=== PATIENT | female | born 1945 | race Caucasian/White ===

== ENCOUNTER 2017-06-24 10:15 | Outpatient (RCR) | payer MEDICARE, OTHER, SELFPAY ==
--- NOTE | 2017-06-22 11:25 | PT.OTN ---
Current Diagnoses Pain in left shoulder (06/22/17) Impingement syndrome of left shoulder (06/22/17) Abnormal posture (06/22/17) Weakness (06/22/17) Transition note: On June 21, 2017 our therapy services consisting of Speech, Occupational, and Physical Therapy transitioned from the [employer] electronic documentation system to a new [employer] electronic documentation system.?? All documentation prior to June 21 can be found under [employer] saved data. From June 21 forward all medical record documentation will be in [employer] 6.1.
--- NOTE | 2017-06-22 17:01 | PT.OTN ---
Current Diagnoses Pain in left shoulder (06/22/17) Impingement syndrome of left shoulder (06/22/17) Abnormal posture (06/22/17) Weakness (06/22/17) Physical Therapy Treatment Note PT-OP-A Visit Information Start: 06/22/17 16:41 Freq: Status: Active Protocol: Activity Type Activity Date Activity User E-Sign Co-Sign Detail Recorded Client Recorded Date Recorded By Document 06/22/17 16:43 TMS [email or web address] 06/22/17 16:59 [facility] 06/22/17 16:43 Out-Patient Physical Therapy Visit Information [Visit Information] -Visit Type Treatment Note -Visit Start Time 11:00 -Visit Stop Time 11:45 -Total Visit Minutes 45 -Visit Number 6/10 -Number of LICENSED ARCHITECT Visits 4 PT-OP-C Subjective Start: 06/22/17 16:41 Freq: Status: Active Protocol: Activity Type Activity Date Activity User E-Sign Co-Sign Detail Recorded Client Recorded Date Recorded By Document 06/22/17 16:43 TMS [email or web address] 06/22/17 16:59 [facility] 06/22/17 16:43 OP-PT Subjective [Patient Comments] -Patient Comments Pt. states pain comes and goes, had increased pain last night. PT-OP-S Aquatic Treatment Start: 06/22/17 16:41 Freq: Status: Active Protocol: Activity Type Activity Date Activity User E-Sign Co-Sign Detail Recorded Client Recorded Date Recorded By Document 06/22/17 16:43 TMS [email or web address] 06/22/17 16:59 [facility] 06/22/17 16:43 Aquatics Treatment [Pool Entry/Exit] -Pool Entry/Exit Method Stairs -Assistance Independent [Water Walking] Sideways -Water Level Chest Level -Level of Assistance Independent -Comments With U.E. AB/AD Forwards -Water Level Chest Level -Level of Assistance Independent [Upper Extremity Exercises] 5 -Details Shoulder IR/ER to neutrel 4 -Details Shoulder flexion/ extension -Body Position Standing -Water Level Neck Level -Reps/Duration 10 -Comments Pushing down, floating up to surface 3 -Details Shloulder AB/AD -Body Position Standing -Water Level Neck Level -Reps/Duration 10 -Comments Pushing down, floating up to surface. 2 -Details Neck side bending -Body Position Standing -Water Level Neck Level 1 -Details Shoulder Rolls -Body Position Standing -Water Level Neck Level -Reps/Duration 10 [[place] Activities] -[place] Activities Bicycle -Equipment Belt -Duration 20 -Comments With gentle U.E . ROM [Manual Techniques] -Aquatic Massage Soft tissue massage of left shoulder and shoulder girdle , WATSU also PT-OP-T Assessment and Plan Start: 06/22/17 16:41 Freq: Status: Active Protocol: Activity Type Activity Date Activity User E-Sign Co-Sign Detail Recorded Client Recorded Date Recorded By Document 06/22/17 16:43 TMS [email or web address] 06/22/17 16:59 TMS 06/22/17 16:43 Physical Therapy Assessment [Assessment Summary] -Assessment Pt. is tolerating left shoulder ROM slightly better , seems less guarded with ROM and less grimacing. Complained of left knee pain as well. Physical Therapy Plan [Frequency and Duration] -Frequency of Treatment 2x/Week -Duration of Treatment 2 months from May 11, 2017 -Plan of Care Start Date 05/11/17 -Plan of Care End Date 07/10/17 [Next Visit Focus/Plan] -Next Visit Plan Continue to progress left shoulder ROM, strength.
--- NOTE | 2017-06-24 15:30 | PT.OTN ---
Current Diagnoses Pain in left shoulder (06/24/17) Impingement syndrome of left shoulder (06/24/17) Abnormal posture (06/24/17) Weakness (06/24/17) Physical Therapy Treatment Note PT-OP-A Visit Information Start: 06/22/17 16:41 Freq: Status: Active Protocol: Activity Type Activity Date Activity User E-Sign Co-Sign Detail Recorded Client Recorded Date Recorded By Document 06/24/17 15:03 [facility] [email or web address] 06/24/17 15:29 [facility] 06/24/17 15:03 Out-Patient Physical Therapy Visit Information [Visit Information] -Visit Type Treatment Note -Visit Start Time 10:15 -Visit Stop Time 11:00 -Total Visit Minutes 45 -Visit Number 08/30 -Number of GLOBAL MANAGER Visits 1 PT-OP-C Subjective Start: 06/22/17 16:41 Freq: Status: Active Protocol: Activity Type Activity Date Activity User E-Sign Co-Sign Detail Recorded Client Recorded Date Recorded By Document 06/24/17 15:03 [facility] [email or web address] 06/24/17 15:29 [facility] 06/24/17 15:03 OP-PT Subjective [Patient Comments] -Patient Comments Pt. states she has an appointment with [facility] clinic next week. State's she's hoping they can help her with her weight, states she doesn't follow a good diet, trying to increase activity. OP-PT Pain Assessment [Pain Assessment Grid] -Paper Pain Assessment Grid Completed No [Comments] -Pain Comments Pt. states her pain ranges from 0-8/10, depending on what she's doing. PT-OP-S Aquatic Treatment Start: 06/22/17 16:41 Freq: Status: Active Protocol: Activity Type Activity Date Activity User E-Sign Co-Sign Detail Recorded Client Recorded Date Recorded By Document 06/24/17 15:03 TMS [email or web address] 06/24/17 15:29 [facility] 06/24/17 15:03 Aquatics Treatment [Pool Entry/Exit] -Pool Entry/Exit Method Stairs [Water Walking] Sideways -Water Level Chest Level -Level of Assistance Independent -Comments With U.E. AB/AD Forwards -Water Level Chest Level -Level of Assistance Independent [Upper Extremity Exercises] 7 -Details Pendulums -Body Position Standing -Water Level Neck Level 6 -Details Elbow flexion/ extension -Body Position Standing -Water Level Neck Level -Reps/Duration 10 5 -Details Shoulder IR/ER to neutrel 4 -Details Shoulder flexion/ extension -Body Position Standing -Water Level Neck Level -Reps/Duration 10 -Comments Pushing down, floating up to surface 3 -Details Shloulder AB/AD -Body Position Standing -Water Level Neck Level -Reps/Duration 10 -Comments Pushing down, floating up to surface. 2 -Details Neck side bending -Body Position Standing -Water Level Neck Level 1 -Details Shoulder Rolls -Body Position Standing -Water Level Neck Level -Reps/Duration 10 [Hunter Activities] -Hunter Activities Bicycle -Equipment Belt -Duration 20 -Comments With gentle U.E . ROM PT-OP-T Assessment and Plan Start: 06/22/17 16:41 Freq: Status: Active Protocol: Activity Type Activity Date Activity User E-Sign Co-Sign Detail Recorded Client Recorded Date Recorded By Document 06/24/17 15:03 TMS [email or web address] 06/24/17 15:29 TMS 06/24/17 15:03 Physical Therapy Assessment [Progress Towards Goals] -Progress Towards Goals Slow Progress - Other -Progress Comments Pt. is tolerating increased left shoulder ROM with exercises Physical Therapy Plan [Frequency and Duration] -Frequency of Treatment 2x/Week -Duration of Treatment 2 months from May 11, 2017 -Plan of Care Start Date 05/11/17 -Plan of Care End Date 07/10/17 [Next Visit Focus/Plan] -Next Visit Plan Pt. doesn't have any further aquatic appointments scheduled, wants to continue as able. Pt. put on wait list for aquatic P.T ., isn't able to afford coming in by herself.
--- NOTE | 2017-07-19 10:20 | PT.OPDS ---
Current Diagnoses Pain in left shoulder (06/24/17) Impingement syndrome of left shoulder (06/24/17) Abnormal posture (06/24/17) Weakness (06/24/17) Provider Visit Care Team Role Provider Type Ivan Recinos MD Family Provider Physician Primary Care Provider Specialty: Internal Medicine Address: [address] [place] [address], [id number] Email: [email or web address] Danie Murray MD Attending Provider Physician Specialty: Orthopedic Surgery Address: [address] [place] [address], [id number] Email: [email or web address] Discharge Summary PT-OP-C Subjective Start: 06/22/17 16:41 Freq: Status: Active Protocol: Document 06/24/17 15:03 TMS (Rec: 06/24/17 15:29 TMS [email or web address]) OP-PT Subjective Patient Comments Patient Comments Pt. states she has an appointment with [facility] clinic next week. State's she's hoping they can help her with her weight, states she doesn't follow a good diet, trying to increase activity. OP-PT Pain Assessment Pain Assessment Grid Paper Pain Assessment Grid Completed No Comments Pain Comments Pt. states her pain ranges from 0-8/10, depending on what she's doing. PT-OP-T Assessment and Plan Start: 06/22/17 16:41 Freq: Status: Active Protocol: Document 07/14/17 10:14 [facility] (Rec: 07/19/17 10:19 [facility] [id number]) Physical Therapy Assessment Assessment Summary Assessment Spoke by phone with patient; she reports she has started at [facility] clinic per PT recommendation, has started losing weight and her shoulder is feeling better. Requests discharge from PT at this time . Physical Therapy Plan Discharge Physical Therapy Discharge Reasons Patient Request Discharge Comments As above patient reporting decreased pain, losing weight. Please Sign and Return: I have reviewed this Plan of Care and certify that the skilled therapy services above are required to meet the patient???s needs. Physician Signature Date Printed Name and Credentials Clinical Instructor Signature Printed Name and Credentials
== END 2017-07-22 09:42 ==
LOC: PHYS 10:15
PROVIDERS: Family Provider Internal Medicine; PCP Internal Medicine; Visit Provider Orthopaedic Surgery
DX: M75.42 Impingement syndrome of left shoulder (principal); M25.512 Pain in left shoulder; R53.1 Weakness; R29.3 Abnormal posture
CPT/HCPCS: 97113

== ENCOUNTER → 2017-07-28 11:07 | Outpatient (CLI) | payer MEDICARE, OTHER, SELFPAY ==
[2017-07-28 13:12] LABS: Hemoglobin A1C% w Est Avg Glu 6.4 % (4.0-6.0)
[2017-07-28 13:47] LABS: Cholesterol 202 mg/dL (140-199); HDL Cholesterol 35 mg/dL (40-60); Triglycerides 466 mg/dL (35-150)
== END ==
PROVIDERS: Family Provider Internal Medicine; PCP Internal Medicine; Visit Provider Student in an Organized Health Care Education/Training Program
DX: E11.9 Type 2 diabetes mellitus without complications (principal); Z79.4 Long term (current) use of insulin
CPT/HCPCS: 36415; 80061; 83036

== ENCOUNTER 2017-11-24 16:56 | Emergency (ER) | payer MEDICARE, OTHER, SELFPAY ==
[2017-11-24 17:02] VITALS: BP 150/73; PULSE 81; RESP 16; TEMP 36.9; O2SAT 97
--- NOTE | 2017-11-24 19:08 | ED_ITS ---
HPI - Extremity Injury (Upper) General Chief Complaint: Extremity Injury, Upper Stated Complaint: CUT LT MIDDLE FINGER Time Seen by Provider: 11/24/17 19:08 Source: patient Mode of arrival: ambulatory Limitations: no limitations History of Present Illness HPI narrative: 72-year-old female here for evaluation of a cut to her left middle finger. She states she was using his son machine and when the needle hit her finger she pulled away causing a cut. States that her last tetanus shot was 10-15 years ago. Stated that she came into the emergency department because it kept bleeding and would not stop. Related Data Home Medications Medication Instructions Recorded Confirmed MULTIVITAMIN (#HEXAVITAMIN) 1 cap PO Q DAY #0 04/06/11 11/01/17 magnesium 250 mg PO #0 02/21/16 11/01/17 cholecalciferol (vitamin D3) 5,000 u Q DAY #0 08/12/16 11/01/17 [Vitamin D3] cinnamon bark 500 mg capsule mg PO cap 11/01/17 11/01/17 loratadine 10 mg capsule 10 mg PO DAILY 11/01/17 11/01/17 omega-3 fatty acids 1,250 mg 1,250 mg PO DAILY 11/01/17 11/01/17 capsule potassium gluconate 595 mg (99 mg) 595 mg PO DAILY tab 11/01/17 11/01/17 tablet travoprost 0.004 % eye drops OPHTHALMIC (EYE) ml 11/01/17 11/01/17 niacin 1 tab PO DAILY 11/24/17 11/24/17 travoprost [Travatan Z] 1 drp OPHTHALMIC (EYE) BEDTIME 11/24/17 11/24/17 Previous Rx's Medication Instructions Recorded ASPIRIN (#ASPIRIN) 325 mg PO Q DAY #30 02/05/11 Support Stockings: Compression ea #2 03/19/16 Glucose: Test Strips str Q DAY #100 07/08/16 atorvastatin 40 mg PO HS #90 tab 02/22/17 amlodipine 10 mg PO QDAY #30 tab 08/10/17 furosemide 40 mg PO QAM #90 tab 08/19/17 meloxicam 15 mg PO QDAY #90 tab 08/19/17 metformin [Glucophage] 1,000 mg PO BIDCC #360 tab 08/19/17 gemfibrozil 600 mg PO BIDAC #60 tab 10/17/17 metoprolol tartrate [Lopressor] 50 mg PO BID #60 tab 10/17/17 omeprazole magnesium [Prilosec OTC] 20 mg PO Q DAY #30 tab 10/17/17 potassium chloride [Klor-Con M20] 20 meq PO AMCC #30 tab 10/17/17 losartan 50 mg PO BID #60 tab 11/03/17 Allergies Allergy/AdvReac Type Severity Reaction Status Date / Time lisinopril [LISINOPRIL] AdvReac Intermediate COUGH Verified 11/01/17 09:44 Review of Systems Musculoskeletal Denies myalgias and Denies arthralgias Integumentary/Breasts Comments: Cut to the left middle finger Neurologic Comments: No numbness or tingling left upper extremity Hematologic/Lymphatic Denies easy bleeding and Denies easy bruising [facility] Medical History Diabetes type 2, controlled (Chronic) Essential hypertension (Chronic 02/04/11) Morbid obesity (Chronic 02/04/11) Mixed hyperlipidemia (Chronic 02/04/11) Asthma (Chronic ~1958) Peripheral neuropathy (Chronic ~2015) Shoulder pain (Chronic ~2016) Foot pain (Chronic ~1999) Fibromyalgia (Chronic) Carpal tunnel syndrome (Chronic ~1997) Ankle pain (Chronic ~1953) Rosacea (Chronic ~1989) History of recurrent ear infection (Chronic ~1955) Hearing loss (Chronic ~1955) Cataracts, bilateral (Chronic ~1999) Obstructive sleep apnea syndrome (Chronic 02/04/11) Glaucoma (Chronic 02/04/11) Chicken pox (Resolved ~1953) Chlamydia (Resolved ~1976) Endometriosis (Resolved) Fibroids (Resolved) Measles (Resolved ~1953) Menstrual cycle disorder (Resolved ~1961) Rubella (Resolved ~1955) Type 2 diabetes mellitus without complication, with long-term current use of insulin (Resolved 01/10/17) Surgical History Anesthesia (Resolved) Surgical procedure planned (Resolved) History of tonsillectomy (~1952) Status post hysterectomy (~1986) Family History Brother Age: 58 Sleep apnea Child Age: 49 Osteopenia Grandmother Cancer Mother Hypertension Sister Age: 61 Sleep apnea Migraines Family/Other Diabetes mellitus Father No problems noted. Social History Smoking Status: Never smoker Exam Initial Vital Signs Initial Vital Signs: Vital Signs Temperature 98.5 F 11/24/17 17:02 Pulse Rate 81 11/24/17 17:02 Respiratory Rate 16 11/24/17 17:02 Blood Pressure 150/73 H 11/24/17 17:02 Pulse Oximetry 97 11/24/17 17:02 Const General: cooperative, healthy appearing, comfortable, well developed, well groomed and No acute distress Orientation: alert, awake and oriented x3 Cardio Pulses: radial pulses present on the left Skin Other: Patient with a 1/2 cm cut to the radial aspect of the left distal middle finger just lateral to the edge of the nail extending to the pad of the finger. No active bleeding. Neuro Other: Sensation intact to light touch left middle finger Extrem Other: Full range of motion of the left middle finger Procedures Laceration Repair Laceration 1: Site: hand Side (If applicable): left Size (cm): 0.5 Description: linear Depth: simple, single layer Pre-repair: irrigated extensively Skin layer closed with: other (Dermabond Steri-Strips) Course Orders Ordered: Discontinued Medications Diphtheria/Tetanus/Acell Pertussis (Adacel) 0.5 ml IM .ONCE ONE Stop: 11/24/17 19:09 Vital Signs - 8 hr 11/24/17 17:02 Temperature 98.5 F Pulse Rate 81 Respiratory Rate 16 Blood Pressure 150/73 H Pulse Oximetry 97 MDM - Extremity Injury (Upper) MDM Narrative Medical decision making narrative: Neurovascularly intact. Tetanus was updated. Wound closed with Dermabond and Steri-Strips. Patient tolerated procedure well. She was given care instructions. She was given return precautions. She expressed understanding and agreement with plan. Discharge Plan Departure Patient Disposition: Home Clinical Impression: Laceration of finger of left hand Instructions: How to Care for a Laceration After Repair Activity Restrictions/Additional Instructions: After 24 hr you can remove the bandage. You can wash your hands like normal. You can use soap and water like normal. Do not soak your hands and anything. The Steri-Strips and skin glue will come off on its own over the next week. Return to the emergency department for any new or worsening symptoms Prescriptions: No Action ASPIRIN (#ASPIRIN) 325 mg PO Q DAY Qty: 30 RF: 0 MULTIVITAMIN (#HEXAVITAMIN) 1 cap PO Q DAY Qty: 0 RF: 0 magnesium 200 MG tablet 250 mg PO Qty: 0 RF: 0 Support Stockings: Compression Qty: 2 RF: PRN Glucose: Test Strips Q DAY Qty: 100 RF: PRN cholecalciferol (vitamin D3) [Vitamin D3] 1,000 UNIT tablet 5,000 u Q DAY Qty: 0 RF: 0 atorvastatin 40 MG tablet 40 mg PO HS Qty: 90 RF: 3 amlodipine 10 mg tablet 10 mg PO QDAY Qty: 30 RF: 3 metformin [Glucophage] 500 mg tablet 1,000 mg PO BIDCC Qty: 360 RF: 0 furosemide 40 mg tablet 40 mg PO QAM Qty: 90 RF: 3 meloxicam 15 mg tablet 15 mg PO QDAY Qty: 90 RF: 2 gemfibrozil 600 mg tablet 600 mg PO BIDAC Qty: 60 RF: 1 metoprolol tartrate [Lopressor] 50 mg tablet 50 mg PO BID Qty: 60 RF: 1 potassium chloride [Klor-Con M20] 20 mEq tablet,ER particles/crystals 20 meq PO AMCC Qty: 30 RF: 1 omeprazole magnesium [Prilosec OTC] 20 mg tablet,delayed release (DR/EC) 20 mg PO Q DAY Qty: 30 RF: 1 losartan 50 mg tablet 50 mg PO BID Qty: 60 RF: 2 travoprost [Travatan Z] 0.004 % drops ophthalmic (eye) RF: 0 loratadine 10 mg capsule 10 mg PO DAILY RF: 0 cinnamon bark 500 mg capsule PO RF: 0 omega-3 fatty acids 1,250 mg capsule 1,250 mg PO DAILY RF: 0 potassium gluconate 595 mg (99 mg) tablet 595 mg PO DAILY RF: 0 niacin 500 mg tablet extended release 24 hr 1 tab PO DAILY RF: 0 travoprost [Travatan Z] 0.004 % drops 1 drp ophthalmic (eye) BEDTIME RF: 0
[2017-11-24] MEDS: TET,DIPH,PERTUSS(ACELL),VAC/PF 0.5 ML SYRINGE IM (19:25)
[2017-11-24 20:00] VITALS: BP 149/71; PULSE 80; RESP 18
== END 2017-11-24 20:00 | disposition home or self-care (01) ==
PROVIDERS: Emergency Provider Emergency Medicine; Family Provider Internal Medicine; PCP Internal Medicine
DX: S61.213A Laceration without foreign body of left middle finger without damage to nail, initial encounter (principal); W27.3XXA Contact with needle (sewing), initial encounter
CPT/HCPCS: 12001; 90471; 99283; 90715

== ENCOUNTER → 2017-12-16 16:12 | Outpatient (CLI) | payer MEDICARE, OTHER, SELFPAY ==
[2017-12-16 17:11] LABS: Hemoglobin A1C% w Est Avg Glu 6.4 % (4.0-6.0)
== END ==
PROVIDERS: Family Provider Internal Medicine; PCP Internal Medicine; Visit Provider Student in an Organized Health Care Education/Training Program
DX: E11.42 Type 2 diabetes mellitus with diabetic polyneuropathy (principal)
CPT/HCPCS: 36415; 83036

== ENCOUNTER 2018-03-15 10:15 | Outpatient (RCR) | payer MEDICARE, OTHER, SELFPAY ==
--- NOTE | 2017-09-08 10:30 | PT.OIE ---
Current Diagnoses Type 2 diabetes mellitus without complications (09/08/17) Morbid (severe) obesity due to excess calories (09/08/17) Patellofemoral disorders, left knee (09/08/17) Pain in left shoulder (09/08/17) Stiffness of left shoulder, not elsewhere classified (09/08/17) Muscle weakness (generalized) (09/08/17) Body mass index (BMI) 50-59.9 , adult (09/08/17) Past Medical History (Last Updated 07/21/17 @ 09:38 by Cristel Johnson) Type 2 diabetes mellitus without complication, with long-term current use of insulin (Chronic 01/10/17) Essential hypertension (Chronic 02/04/11) Mixed hyperlipidemia (Chronic 02/04/11) Obstructive sleep apnea syndrome (Chronic 02/04/11) Morbid obesity (Chronic 02/04/11) Glaucoma (Chronic 02/04/11) Ankle pain (Chronic ~1953) Asthma (Chronic ~1958) Carpal tunnel syndrome (Chronic ~1997) Cataracts, bilateral (Chronic ~1999) Chlamydia (Chronic ~1976) Diabetes mellitus (Chronic) Endometriosis (Chronic) Fibroids (Chronic) Fibromyalgia (Chronic) Foot pain (Chronic ~1999) Glaucoma (Chronic ~2002) Hearing loss (Chronic ~1955) History of recurrent ear infection (Chronic ~1955) Hyperlipidemia (Chronic) Hypertension (Chronic) Menstrual cycle disorder (Chronic ~1961) Osteoarthritis (Chronic) Peripheral neuropathy (Chronic ~2015) Rosacea (Chronic ~1989) Shoulder pain (Chronic ~2016) Sleep apnea (Chronic) Chicken pox (Resolved ~1953) Measles (Resolved ~1953) Rubella (Resolved ~1955) Past Surgical History (Last Updated 07/21/17 @ 09:46 by Cristel oJhnson) Anesthesia (Resolved) Surgical procedure planned (Resolved) History of tonsillectomy (~1952) Status post hysterectomy (~1986) Provider Visit Care Team Role Provider Type Ivan Recinos MD Family Provider Physician Primary Care Provider Specialty: Internal Medicine Address: [address] [place] [address], [phone] Email: [email or web address] NATALIO Herndon Attending Provider Advanced Plate Roller Specialty: Medical Address: [address] [place] [address], [facility] Email: Physical Therapy Initial Evaluation PT-OP-A Visit Information Start: 09/08/17 10:49 Freq: Status: Active Protocol: Document 09/08/17 10:30 [facility] (Rec: 09/08/17 11:04 [facility] [email or web address]) Out-Patient Physical Therapy Visit Information Visit Information Visit Type Initial Evaluation Visit Note 12 visits total before KX Visit Start Time 09:45 Visit Stop Time 10:35 Total Visit Minutes 50 Visit Number 1 Number of SENIOR CONSTRUCTION PROJECT MANAGER Visits 0 Evaluation Information Evaluation Date 09/08/17 PT-OP-B Current Condition Start: 09/08/17 10:49 Freq: Status: Active Protocol: Document 09/08/17 10:30 [facility] (Rec: 09/08/17 11:04 [facility] [email or web address]) Current Condition History of Current Condition Onset Date years ago Current Complaints L shoulder and impaired ability to walk History of Current Condition Pt is a 71 y/o female presenting to physical therapy with a c/o L shoulder pain, as well as bilateral knee pain and swelling L>R limiting her ability to ambulate long distances. Pt notes that she had PT prior for L shoulder with some results, but now is painful when doing her exercises. She sleeps in a upright chair with an ice pack on the L shoulder due to having pain lying down in bed, normally sleeping 2-3 hrs a night. Pt notes that this sleeping position increases her LE swelling. She does not wear compression stockings because they are expensive and Medicare does not cover them. She is waiting on new orthotics to get new shoes. She has to support her L arm most of the time due to pain is she lets it hang. She had an injection in the shoulder which worked for 4 days, and effects wore off before she even had PT last time around. Pt takes Tylenol for pain, and ice helps sometimes. She reports that her orthopedic surgeon suggested that she not do surgery on her shoulder at this point. Pt is undergoing obesity counseling, and is referred for mobility and physical activity with a goal of weight loss, as well as chronic knee and L shoulder pain. Prior Treatments and Tests MRI L shoulder 04/21/2017: Moderate AC joint degeneration , no nearby rotator cuff tears . Irregular globular signal within the superior labrum suggests superior labral tear (SLAP type I or II pathology). No para labral cyst formation . Treatment Goals Patient/Caregiver Goals 1: decrease shoulder pain, 2: increase knee and LE strength to tolerate walking. Prior Functional Status Baseline Function- ADL's Modified Independent Baseline Function- Mobility Modified Independent Baseline Function- Gait community ambulation without device. Current Functional Impairments (Reported) Functional Limitations- ADL's modified indep. Functional Limitations- Mobility/Gait Indep community gait 2 days per week, with increased pain and fatigue. PT-OP-C Subjective Start: 09/08/17 10:49 Freq: Status: Active Protocol: Document 09/08/17 10:30 [facility] (Rec: 09/08/17 11:04 [facility] [email or web address]) OP-PT Subjective Patient Comments Patient Comments Pt notes that her exercises are hurting (shoulder exercises from previous PT training). Admits she does her exercises infrequently. Patient Reported Progress Worse OP-PT Pain Assessment Location Left Lateral Shoulder Pain Location Details lateral and anterior Intensity 9 Scale Used Numeric (1 - 10) Description Aching Sharp Frequency Frequent PT-OP-F Manual Assessment Start: 09/08/17 10:49 Freq: Status: Active Protocol: Document 09/08/17 10:30 [facility] (Rec: 09/08/17 13:39 [facility] [email or web address]) Manual Assessments Soft Tissue Assessment Soft Tissue Mobility Assessment TTP: L subacromial bursa, anterior and medial deltoids, biceps long head, infra and supraspinatus. PT-OP-G Mobility & Gait Start: 09/08/17 10:49 Freq: Status: Active Protocol: Document 09/08/17 10:30 [facility] (Rec: 09/08/17 13:39 [facility] [email or web address]) OP Gait Assessment Comments Gait Comments Mildly antalgic, increased lateral sway, decreased step length on the L. PT-OP-H Neuro Start: 09/08/17 10:49 Freq: Status: Active Protocol: Document 09/08/17 10:30 [facility] (Rec: 09/08/17 13:39 [facility] [email or web address]) Sensation Evaluation Comments Summary Comments Impaired sensation B toes, intact plantar and dorsal surface of feet. Deep Tendon Reflex & Clonus Assessment Deep Tendon Reflex Bilateral Achilles Deep Tendon Reflex 1+ Diminished Bilateral Patellar Deep Tendon Reflex 1+ Diminished Ankle Clonus Bilateral Clonus Assessment Absent PT-OP-K Range of Motion Start: 09/08/17 10:49 Freq: Status: Active Protocol: Document 09/08/17 10:30 [facility] (Rec: 09/08/17 13:42 [facility] [email or web address]) Shoulder Goniometric Range of Motion Shoulder Measured in Degrees Right Active Testing Position Sitting Flexion 150 Abduction 155 External Rotation at 90 degrees 75 Abduction Internal Rotation 80 Left Active Testing Position Sitting Flexion 145 Abduction 105 External Rotation at 90 degrees 45 Abduction Internal Rotation 75 Knee Goniometric Range of Motion Knee Measured in Degrees Right Flexion Active (degrees) 125 Hyper-Extension Active 2 Left Patient Position Supine Flexion Active (degrees) 115 Extension Active (degrees) 5 Extension Passive (degrees) 0 Knee ROM Limitations Comments L knee lacking 5 degrees of extension with AROM. PT-OP-L Special Tests Start: 09/08/17 10:49 Freq: Status: Active Protocol: Document 09/08/17 10:30 [facility] (Rec: 09/08/17 14:52 [facility] [email or web address]) Special Tests Cervical Spine Special Tests Spurling's Test Test Results Negative Shoulder Special Tests Lift-Off Rotator Cuff Test Results negative B Empty Can Test Results positive L, negative R AC Joint Compression Test Results positive L, negative R Anderson Cole Impingement Test Results positive L, negative R Load and Shift Test Results negative B Speed's Biceps Test Results negative B Apprehension Test Test Results negative B Knee Special Tests Eccentric step down test Test Results positive for pain on the L Comments 6 step Varus- 25 Degrees Test Results negative B Varus- 0 Degrees Test Results negative B Valgus- 25 Degrees Test Results negative B Valgus- 0 Degrees Test Results negative B PT-OP-M Strength Start: 09/08/17 10:49 Freq: Status: Active Protocol: Document 09/08/17 10:30 [facility] (Rec: 09/08/17 14:52 [facility] [email or web address]) Shoulder Strength Shoulder Manual Muscle Testing Right Flexion 4+ Good+ Abduction (C5) 5 Normal External Rotation 5 Normal Internal Rotation 5 Normal Left Flexion 4 Good Abduction (C5) 4- Good- External Rotation 4+ Good+ Internal Rotation 5 Normal Elbow/Forearm Strength Elbow and Forearm Manual Muscle Testing Right Flexion (C6) 4+ Good+ Extension (C7) 4+ Good+ Left Flexion (C6) 4- Good- Extension (C7) 4 Good PT-OP-Q Treatments Start: 09/08/17 10:49 Freq: Status: Active Protocol: Document 09/08/17 10:30 RCC (Rec: 09/08/17 14:52 [facility] [email or web address]) Therapeutic Exercises Standing Exercises 3 Standing Exercise Name scapular retraction Side bilateral Reps/Minutes 1x10 Comments tactile cuing 2 Standing Exercise Name shoulder abduction Side left Resistance L1 Reps/Minutes 1x18 Comments 0-45 deg. 1 Standing Exercise Name shoulder ER Side left Resistance L1 Reps/Minutes 1x10 PT-OP-R Modalities Start: 09/08/17 10:49 Freq: Status: Active Protocol: Document 09/08/17 10:30 [facility] (Rec: 09/08/17 14:53 [facility] [email or web address]) Hot Pack/Cold Pack Treatment Cold Pack Location lumbar and L shoulder Patient Position Sitting Treatment Duration (minutes) 10 Patient Tolerance Good PT-OP-T Assessment and Plan Start: 09/08/17 10:49 Freq: Status: Active Protocol: Document 09/08/17 10:30 [facility] (Rec: 09/08/17 14:52 [facility] [email or web address]) Physical Therapy Assessment Rehab Potential Rehabilitation Potential Good Evaluation Complexity Number of Personal Factors/Comorbidities 3 or More Number of Body Systems Impaired 4 or More Clinical Presentation at Evaluation Evolving Impairments Impairments Activity Tolerance Functional Activities Gait Pain ROM Soft Tissue Mobility Strength Goals Five Impairment LE strength Long-Term Goal (LTG) knee flexion and extension, hip flexion, ER and IR to 4+/5 or greater prior to d/c. Four Impairment UE weakness Long-Term Goal (LTG) Shoulder flexion, elbow flexion and extension at least 4+/5, and shoulder abduction, ER, IR 5/5 with manual muscle testing. LTG Duration 12 weeks Three Impairment Impaired gait tolerance Short Term Goal (STG) Pt will be compliant with a walking program 3 days per week for 20 mins. Emergency Response Officer Goal (LTG) Pt will be compliant with a walking program, 5 days per week for 30 mins. LTG Duration 12 weeks Two Impairment L shoulder ROM Emergency Response Officer Goal (LTG) L shoulder flexion and abduction to 150 deg, ER to 70 deg. prior to d/c for functional reaching overhead. LTG Duration 12 weeks One Impairment L shoulder pain 9/10 Short Term Goal (STG) 6/10 or less rated L shoulder pain STG Duration 6 weeks Emergency Response Officer Goal (LTG) 4/10 or less rated L shoulder pain LTG Duration 12 weeks Assessment Summary Assessment Pt presents with multiple areas of complaints with pain, most concerning to her at the L shoulder and L knee. Pt's L shoulder appears to demonstrates signs of muscle/ tendon strain and impingement, along with MRI findings of AC joint degeneration. Pt's L knee appears to have poor patellofemoral tracking, and decreased quadriceps strength likely causing increased pain with descending steps. Pt would greatly benefit from physical therapy to improve strength in the upper and lower extremities, increase L shoulder ROM, decrease pain, and get established with a home walking program to assist with cardiovascular health. Pt would also benefit from participating in out aquatic physical therapy program to decrease stress on weight- bearing joints, and improve exercise tolerance and strength. Physical Therapy Plan Frequency and Duration Frequency of Treatment 2x/Week Duration of Treatment 12 weeks Plan of Care Start Date 09/08/17 Plan of Care End Date 12/01/17 Therapeutic Interventions Therapeutic Interventions Aquatic Therapy Gait Training Home Exercise Program Joint Mobilizations Manual Therapy Neuromuscular Re-education Patient/Caregiver Education Self-Care/Home Management Soft Tissue Mobilization Taping Therapeutic Activities Therapeutic Exercises Modalities Cold Pack/Ice Massage Electric Stimulation Hot Packs Ultrasound Next Visit Focus/Plan Next Note Type Treatment Note Next Visit Plan Shuttle leg press- 50-62 lbs bilateral, 25-37 lbs unilateral; resisted scapular retraction; T-bar ROM/conor's .
--- NOTE | 2017-09-08 10:30 | PT.OPPOC ---
Current Diagnoses Type 2 diabetes mellitus without complications (09/08/17) Morbid (severe) obesity due to excess calories (09/08/17) Patellofemoral disorders, left knee (09/08/17) Pain in left shoulder (09/08/17) Stiffness of left shoulder, not elsewhere classified (09/08/17) Muscle weakness (generalized) (09/08/17) Body mass index (BMI) 50-59.9 , adult (09/08/17) Provider Visit Care Team Role Provider Type Ivan Recinos MD Family Provider Physician Primary Care Provider Specialty: Internal Medicine Address: [address] [place] [address], [id number] Email: [email or web address] NATALIO Herndon Attending Provider Advanced Print Production Coordinator Specialty: Medical Address: [address] [place] [address], [facility] Email: Plan Of Care PT-OP-T Assessment and Plan Start: 09/08/17 10:49 Freq: Status: Active Protocol: Document 09/08/17 10:30 RCC (Rec: 09/08/17 14:52 RCC [email or web address]) Physical Therapy Assessment Rehab Potential Rehabilitation Potential Good Evaluation Complexity Number of Personal Factors/Comorbidities 3 or More Number of Body Systems Impaired 4 or More Clinical Presentation at Evaluation Evolving Impairments Impairments Activity Tolerance Functional Activities Gait Pain ROM Soft Tissue Mobility Strength Goals Five Impairment LE strength Sales Representative Graphic Art Goal (LTG) knee flexion and extension, hip flexion, ER and IR to 4+/5 or greater prior to d/c. Four Impairment UE weakness Sales Representative Graphic Art Goal (LTG) Shoulder flexion, elbow flexion and extension at least 4+/5, and shoulder abduction, ER, IR 5/5 with manual muscle testing. LTG Duration 12 weeks Three Impairment Impaired gait tolerance Short Term Goal (STG) Pt will be compliant with a walking program 3 days per week for 20 mins. Sales Representative Graphic Art Goal (LTG) Pt will be compliant with a walking program, 5 days per week for 30 mins. LTG Duration 12 weeks Two Impairment L shoulder ROM Sales Representative Graphic Art Goal (LTG) L shoulder flexion and abduction to 150 deg, ER to 70 deg. prior to d/c for functional reaching overhead. LTG Duration 12 weeks One Impairment L shoulder pain 9/10 Short Term Goal (STG) 6/10 or less rated L shoulder pain STG Duration 6 weeks Sales Representative Graphic Art Goal (LTG) 4/10 or less rated L shoulder pain LTG Duration 12 weeks Assessment Summary Assessment Pt presents with multiple areas of complaints with pain, most concerning to her at the L shoulder and L knee. Pt's L shoulder appears to demonstrates signs of muscle/ tendon strain and impingement, along with MRI findings of AC joint degeneration. Pt's L knee appears to have poor patellofemoral tracking, and decreased quadriceps strength likely causing increased pain with descending steps. Pt would greatly benefit from physical therapy to improve strength in the upper and lower extremities, increase L shoulder ROM, decrease pain, and get established with a home walking program to assist with cardiovascular health. Pt would also benefit from participating in out aquatic physical therapy program to decrease stress on weight- bearing joints, and improve exercise tolerance and strength. Physical Therapy Plan Frequency and Duration Frequency of Treatment 2x/Week Duration of Treatment 12 weeks Plan of Care Start Date 09/08/17 Plan of Care End Date 12/01/17 Therapeutic Interventions Therapeutic Interventions Aquatic Therapy Gait Training Home Exercise Program Joint Mobilizations Manual Therapy Neuromuscular Re-education Patient/Caregiver Education Self-Care/Home Management Soft Tissue Mobilization Taping Therapeutic Activities Therapeutic Exercises Modalities Cold Pack/Ice Massage Electric Stimulation Hot Packs Ultrasound Next Visit Focus/Plan Next Note Type Treatment Note Next Visit Plan Shuttle leg press- 50-62 lbs bilateral, 25-37 lbs unilateral; resisted scapular retraction; T-bar ROM/conor's . Plan of Care Dates Plan of Care Start Date 09/08/17 Plan of Care End Date 12/01/17 Please Sign and Return: I have reviewed this Plan of Care and certify that the skilled therapy services above are required to meet the patient?s needs. Physician Signature Date Printed Name and Credentials Clinical Instructor Signature Printed Name and Credentials
--- NOTE | 2017-09-13 15:19 | PT.OTN ---
Current Diagnoses Type 2 diabetes mellitus without complications (09/13/17) Morbid (severe) obesity due to excess calories (09/13/17) Body mass index (BMI) 50-59.9 , adult (09/13/17) Physical Therapy Treatment Note PT-OP-A Visit Information Start: 09/08/17 10:49 Freq: Status: Active Protocol: Document 09/13/17 08:59 LRN (Rec: 09/13/17 09:46 LRN [id number]) Out-Patient Physical Therapy Visit Information Visit Information Visit Type Initial Evaluation Visit Note 11 visits total before KX Visit Start Time 09:00 Visit Stop Time 09:50 Total Visit Minutes 50 Visit Number 2 Number of CERTIFIED HEALTH EDUCATION SPECIALIST Visits 0 Evaluation Information Evaluation Date 09/08/17 PT-OP-B Current Condition Start: 09/08/17 10:49 Freq: Status: Active Protocol: Document 09/08/17 10:30 RCC (Rec: 09/08/17 11:04 RCC [email or web address]) Current Condition History of Current Condition Onset Date years ago Current Complaints L shoulder and impaired ability to walk History of Current Condition Pt is a 71 y/o female presenting to physical therapy with a c/o L shoulder pain, as well as bilateral knee pain and swelling L>R limiting her ability to ambulate long distances. Pt notes that she had PT prior for L shoulder with some results, but now is painful when doing her exercises. She sleeps in a upright chair with an ice pack on the L shoulder due to having pain lying down in bed, normally sleeping 2-3 hrs a night. Pt notes that this sleeping position increases her LE swelling. She does not wear compression stockings because they are expensive and Medicare does not cover them. She is waiting on new orthotics to get new shoes. She has to support her L arm most of the time due to pain is she lets it hang. She had an injection in the shoulder which worked for 4 days, and effects wore off before she even had PT last time around. Pt takes Tylenol for pain, and ice helps sometimes. She reports that her orthopedic surgeon suggested that she not do surgery on her shoulder at this point. Pt is undergoing obesity counseling, and is referred for mobility and physical activity with a goal of weight loss, as well as chronic knee and L shoulder pain. Prior Treatments and Tests MRI L shoulder 04/21/2017: Moderate AC joint degeneration , no nearby rotator cuff tears . Irregular globular signal within the superior labrum suggests superior labral tear (SLAP type I or II pathology). No para labral cyst formation . Treatment Goals Patient/Caregiver Goals 1: decrease shoulder pain, 2: increase knee and LE strength to tolerate walking. Prior Functional Status Baseline Function- ADL's Modified Independent Baseline Function- Mobility Modified Independent Baseline Function- Gait community ambulation without device. Current Functional Impairments (Reported) Functional Limitations- ADL's modified indep. Functional Limitations- Mobility/Gait Indep community gait 2 days per week, with increased pain and fatigue. PT-OP-C Subjective Start: 09/08/17 10:49 Freq: Status: Active Protocol: Document 09/13/17 08:59 LRN (Rec: 09/13/17 09:46 LRN [id number]) OP-PT Subjective Patient Comments Patient Comments No change. Sometimes the shoulder feels better, other times not. PT-OP-F Manual Assessment Start: 09/08/17 10:49 Freq: Status: Active Protocol: Document 09/08/17 10:30 RCC (Rec: 09/08/17 13:39 RCC [email or web address]) Manual Assessments Soft Tissue Assessment Soft Tissue Mobility Assessment TTP: L subacromial bursa, anterior and medial deltoids, biceps long head, infra and supraspinatus. PT-OP-G Mobility & Gait Start: 09/08/17 10:49 Freq: Status: Active Protocol: Document 09/08/17 10:30 RCC (Rec: 09/08/17 13:39 RCC [email or web address]) OP Gait Assessment Comments Gait Comments Mildly antalgic, increased lateral sway, decreased step length on the L. PT-OP-H Neuro Start: 09/08/17 10:49 Freq: Status: Active Protocol: Document 09/08/17 10:30 RCC (Rec: 09/08/17 13:39 RCC [email or web address]) Sensation Evaluation Comments Summary Comments Impaired sensation B toes, intact plantar and dorsal surface of feet. Deep Tendon Reflex & Clonus Assessment Deep Tendon Reflex Bilateral Achilles Deep Tendon Reflex 1+ Diminished Bilateral Patellar Deep Tendon Reflex 1+ Diminished Ankle Clonus Bilateral Clonus Assessment Absent PT-OP-K Range of Motion Start: 09/08/17 10:49 Freq: Status: Active Protocol: Document 09/08/17 10:30 RCC (Rec: 09/08/17 13:42 RCC [email or web address]) Shoulder Goniometric Range of Motion Shoulder Measured in Degrees Right Active Testing Position Sitting Flexion 150 Abduction 155 External Rotation at 90 degrees 75 Abduction Internal Rotation 80 Left Active Testing Position Sitting Flexion 145 Abduction 105 External Rotation at 90 degrees 45 Abduction Internal Rotation 75 Knee Goniometric Range of Motion Knee Measured in Degrees Right Flexion Active (degrees) 125 Hyper-Extension Active 2 Left Patient Position Supine Flexion Active (degrees) 115 Extension Active (degrees) 5 Extension Passive (degrees) 0 Knee ROM Limitations Comments L knee lacking 5 degrees of extension with AROM. PT-OP-L Special Tests Start: 09/08/17 10:49 Freq: Status: Active Protocol: Document 09/08/17 10:30 RCC (Rec: 09/08/17 14:52 RCC [email or web address]) Special Tests Cervical Spine Special Tests Spurling's Test Test Results Negative Shoulder Special Tests Lift-Off Rotator Cuff Test Results negative B Empty Can Test Results positive L, negative R AC Joint Compression Test Results positive L, negative R Anderson Cole Impingement Test Results positive L, negative R Load and Shift Test Results negative B Speed's Biceps Test Results negative B Apprehension Test Test Results negative B Knee Special Tests Eccentric step down test Test Results positive for pain on the L Comments 6 step Varus- 25 Degrees Test Results negative B Varus- 0 Degrees Test Results negative B Valgus- 25 Degrees Test Results negative B Valgus- 0 Degrees Test Results negative B PT-OP-M Strength Start: 09/08/17 10:49 Freq: Status: Active Protocol: Document 09/08/17 10:30 RCC (Rec: 09/08/17 14:52 RCC [email or web address]) Shoulder Strength Shoulder Manual Muscle Testing Right Flexion 4+ Good+ Abduction (C5) 5 Normal External Rotation 5 Normal Internal Rotation 5 Normal Left Flexion 4 Good Abduction (C5) 4- Good- External Rotation 4+ Good+ Internal Rotation 5 Normal Elbow/Forearm Strength Elbow and Forearm Manual Muscle Testing Right Flexion (C6) 4+ Good+ Extension (C7) 4+ Good+ Left Flexion (C6) 4- Good- Extension (C7) 4 Good PT-OP-Q Treatments Start: 09/08/17 10:49 Freq: Status: Active Protocol: Document 09/13/17 08:59 LRN (Rec: 09/13/17 09:46 LRN [id number]) Cardio Equipment Recumbent Elliptical (Biodex) Duration (Minutes) 6 Resistance Lev 1 Seat Position 7 Gym Equipment Shuttle Recovery Bilateral Squats Resistance 50# Shuttle Recovery Platform Stable Reps/Time 10x3 Unilateral Squats Details 50#L, Resistance 50 Shuttle Recovery Platform Stable Reps/Time 10x3 Therapeutic Exercises Supine Exercises 2 Supine Exercise Name T-Bar Lat Pull Down Side bilateral Resistance Lev 1 Equipment Used T-Band Comments 15x1 1 Supine Exercise Name T-Bar Flex focus on Left shoulder Side bilateral Equipment Used 3' Comments Worked up to 90-150 deg's Sitting Exercises 1 Sitting Exercise Name Steven: L shoulder flex Side left Reps/Minutes 5' Comments MWM for scapula x 2' Standing Exercises 3 Standing Exercise Name scapular retraction Side bilateral Reps/Minutes 1x10 Comments tactile cuing 1 Standing Exercise Name shoulder ER Side left Resistance L1 Reps/Minutes 2x5 PT-OP-R Modalities Start: 09/08/17 10:49 Freq: Status: Active Protocol: Document 09/13/17 08:59 LRN (Rec: 09/13/17 09:46 LRN [id number]) Hot Pack/Cold Pack Treatment Cold Pack Location L knee and L shoulder strapped in Patient Position Supine Treatment Duration (minutes) 10 Patient Tolerance Good Comments Bolster under knees PT-OP-T Assessment and Plan Start: 09/08/17 10:49 Freq: Status: Active Protocol: Document 09/13/17 08:59 LRN (Rec: 09/13/17 09:46 LRN [id number]) Physical Therapy Assessment Goals Five Impairment LE strength Hydrogeology Professor Goal (LTG) knee flexion and extension, hip flexion, ER and IR to 4+/5 or greater prior to d/c. Four Impairment UE weakness Senior Living Goal (LTG) Shoulder flexion, elbow flexion and extension at least 4+/5, and shoulder abduction, ER, IR 5/5 with manual muscle testing. LTG Duration 12 weeks Three Impairment Impaired gait tolerance Short Term Goal (STG) Pt will be compliant with a walking program 3 days per week for 20 mins. Senior Living Goal (LTG) Pt will be compliant with a walking program, 5 days per week for 30 mins. LTG Duration 12 weeks Two Impairment L shoulder ROM Senior Living Goal (LTG) L shoulder flexion and abduction to 150 deg, ER to 70 deg. prior to d/c for functional reaching overhead. LTG Duration 12 weeks One Impairment L shoulder pain 9/10 Short Term Goal (STG) 6/10 or less rated L shoulder pain STG Duration 6 weeks Senior Living Goal (LTG) o4/10 or less rated L shoulder pain LTG Duration 12 weeks Assessment Summary Assessment Poor tolerance to T-Bar supine L shoulder AAROM. Good tolerance to steven ROM with scapular assist. Good tolerance to LE strengthening. Endurance is limited. Physical Therapy Plan Frequency and Duration Frequency of Treatment 2x/Week Duration of Treatment 12 weeks Plan of Care Start Date 09/08/17 Plan of Care End Date 12/01/17 Next Visit Focus/Plan Next Note Type Treatment Note Next Visit Plan Progress Shuttle 62# bilateral , and lat pull down ex. Might try US to L infraspinatus to decrease pain.
--- NOTE | 2017-09-15 13:19 | PT.OTN ---
Current Diagnoses Type 2 diabetes mellitus without complications (09/15/17) Morbid (severe) obesity due to excess calories (09/15/17) Body mass index (BMI) 50-59.9 , adult (09/15/17) Physical Therapy Treatment Note PT-OP-A Visit Information Start: 09/08/17 10:49 Freq: Status: Active Protocol: Document 09/15/17 09:44 LRN (Rec: 09/15/17 11:05 LRN [id number]) Out-Patient Physical Therapy Visit Information Visit Information Visit Type Treatment Note Visit Note 10 visits total before KX Visit Start Time 09:44 Visit Stop Time 10:44 Total Visit Minutes 60 Visit Number 3 Number of COUNTER TENDER Visits 0 Evaluation Information Evaluation Date 09/08/17 PT-OP-B Current Condition Start: 09/08/17 10:49 Freq: Status: Active Protocol: Document 09/08/17 10:30 RCC (Rec: 09/08/17 11:04 RCC [email or web address]) Current Condition History of Current Condition Onset Date years ago Current Complaints L shoulder and impaired ability to walk History of Current Condition Pt is a 71 y/o female presenting to physical therapy with a c/o L shoulder pain, as well as bilateral knee pain and swelling L>R limiting her ability to ambulate long distances. Pt notes that she had PT prior for L shoulder with some results, but now is painful when doing her exercises. She sleeps in a upright chair with an ice pack on the L shoulder due to having pain lying down in bed, normally sleeping 2-3 hrs a night. Pt notes that this sleeping position increases her LE swelling. She does not wear compression stockings because they are expensive and Medicare does not cover them. She is waiting on new orthotics to get new shoes. She has to support her L arm most of the time due to pain is she lets it hang. She had an injection in the shoulder which worked for 4 days, and effects wore off before she even had PT last time around. Pt takes Tylenol for pain, and ice helps sometimes. She reports that her orthopedic surgeon suggested that she not do surgery on her shoulder at this point. Pt is undergoing obesity counseling, and is referred for mobility and physical activity with a goal of weight loss, as well as chronic knee and L shoulder pain. Prior Treatments and Tests MRI L shoulder 04/21/2017: Moderate AC joint degeneration , no nearby rotator cuff tears . Irregular globular signal within the superior labrum suggests superior labral tear (SLAP type I or II pathology). No para labral cyst formation . Treatment Goals Patient/Caregiver Goals 1: decrease shoulder pain, 2: increase knee and LE strength to tolerate walking. Prior Functional Status Baseline Function- ADL's Modified Independent Baseline Function- Mobility Modified Independent Baseline Function- Gait community ambulation without device. Current Functional Impairments (Reported) Functional Limitations- ADL's modified indep. Functional Limitations- Mobility/Gait Indep community gait 2 days per week, with increased pain and fatigue. PT-OP-C Subjective Start: 09/08/17 10:49 Freq: Status: Active Protocol: Document 09/15/17 09:44 LRN (Rec: 09/15/17 11:05 LRN [id number]) OP-PT Subjective Patient Comments Patient Comments States the L shoulder was really sore the day after the last treatment. Used ice and arthritic pain meds for the pain. Pain was and is still 7 -8/10. Patient Reported Progress Worse OP-PT Pain Assessment Pain Assessment Grid Paper Pain Assessment Grid Completed No Location Left Lateral Shoulder Pain Location Details lateral and anterior Intensity 8 Scale Used Numeric (1 - 10) Description Aching Sharp Frequency Frequent PT-OP-F Manual Assessment Start: 09/08/17 10:49 Freq: Status: Active Protocol: Document 09/08/17 10:30 RCC (Rec: 09/08/17 13:39 RCC [email or web address]) Manual Assessments Soft Tissue Assessment Soft Tissue Mobility Assessment TTP: L subacromial bursa, anterior and medial deltoids, biceps long head, infra and supraspinatus. PT-OP-G Mobility & Gait Start: 09/08/17 10:49 Freq: Status: Active Protocol: Document 09/08/17 10:30 RCC (Rec: 09/08/17 13:39 RCC [email or web address]) OP Gait Assessment Comments Gait Comments Mildly antalgic, increased lateral sway, decreased step length on the L. PT-OP-H Neuro Start: 09/08/17 10:49 Freq: Status: Active Protocol: Document 09/08/17 10:30 RCC (Rec: 09/08/17 13:39 RCC [email or web address]) Sensation Evaluation Comments Summary Comments Impaired sensation B toes, intact plantar and dorsal surface of feet. Deep Tendon Reflex & Clonus Assessment Deep Tendon Reflex Bilateral Achilles Deep Tendon Reflex 1+ Diminished Bilateral Patellar Deep Tendon Reflex 1+ Diminished Ankle Clonus Bilateral Clonus Assessment Absent PT-OP-K Range of Motion Start: 09/08/17 10:49 Freq: Status: Active Protocol: Document 09/08/17 10:30 RCC (Rec: 09/08/17 13:42 RCC [email or web address]) Shoulder Goniometric Range of Motion Shoulder Measured in Degrees Right Active Testing Position Sitting Flexion 150 Abduction 155 External Rotation at 90 degrees 75 Abduction Internal Rotation 80 Left Active Testing Position Sitting Flexion 145 Abduction 105 External Rotation at 90 degrees 45 Abduction Internal Rotation 75 Knee Goniometric Range of Motion Knee Measured in Degrees Right Flexion Active (degrees) 125 Hyper-Extension Active 2 Left Patient Position Supine Flexion Active (degrees) 115 Extension Active (degrees) 5 Extension Passive (degrees) 0 Knee ROM Limitations Comments L knee lacking 5 degrees of extension with AROM. PT-OP-L Special Tests Start: 09/08/17 10:49 Freq: Status: Active Protocol: Document 09/08/17 10:30 RCC (Rec: 09/08/17 14:52 RCC [email or web address]) Special Tests Cervical Spine Special Tests Spurling's Test Test Results Negative Shoulder Special Tests Lift-Off Rotator Cuff Test Results negative B Empty Can Test Results positive L, negative R AC Joint Compression Test Results positive L, negative R Anderson Cole Impingement Test Results positive L, negative R Load and Shift Test Results negative B Speed's Biceps Test Results negative B Apprehension Test Test Results negative B Knee Special Tests Eccentric step down test Test Results positive for pain on the L Comments 6 step Varus- 25 Degrees Test Results negative B Varus- 0 Degrees Test Results negative B Valgus- 25 Degrees Test Results negative B Valgus- 0 Degrees Test Results negative B PT-OP-M Strength Start: 09/08/17 10:49 Freq: Status: Active Protocol: Document 09/08/17 10:30 RCC (Rec: 09/08/17 14:52 RCC [email or web address]) Shoulder Strength Shoulder Manual Muscle Testing Right Flexion 4+ Good+ Abduction (C5) 5 Normal External Rotation 5 Normal Internal Rotation 5 Normal Left Flexion 4 Good Abduction (C5) 4- Good- External Rotation 4+ Good+ Internal Rotation 5 Normal Elbow/Forearm Strength Elbow and Forearm Manual Muscle Testing Right Flexion (C6) 4+ Good+ Extension (C7) 4+ Good+ Left Flexion (C6) 4- Good- Extension (C7) 4 Good PT-OP-Q Treatments Start: 09/08/17 10:49 Freq: Status: Active Protocol: Document 09/15/17 09:44 LRN (Rec: 09/15/17 11:05 LRN [id number]) Cardio Equipment Recumbent Elliptical (Biodex) Duration (Minutes) 7 Resistance Lev 1 Seat Position 7 Gym Equipment Shuttle Recovery Bilateral Squats Resistance 62# Shuttle Recovery Platform Stable Reps/Time 5x Unilateral Squats Details 50#L, Resistance 50 Shuttle Recovery Platform Stable Reps/Time 10x3 PT-OP-R Modalities Start: 09/08/17 10:49 Freq: Status: Active Protocol: Document 09/15/17 09:44 LRN (Rec: 09/15/17 11:05 LRN [id number]) Ultrasound Therapy Treatment Left Shoulder Treatment Duration (minutes) 8 Patient Position Sitting Frequency Setting (mHz) 1 Intensity Setting (w/cm2) 1.0 Comments Subacromial and upper infraspinatus Right Knee Treatment Duration (minutes) 9 Patient Position Hooklying Frequency Setting (mHz) 1 Intensity Setting (w/cm2) 1.0 Comments Subpatellar, lateral/medial joint line. PT-OP-T Assessment and Plan Start: 09/08/17 10:49 Freq: Status: Active Protocol: Document 09/15/17 09:44 LRN (Rec: 09/15/17 11:05 LRN [id number]) Physical Therapy Assessment Impairments Impairments Activity Tolerance Functional Activities Gait Pain ROM Soft Tissue Mobility Strength Goals Five Impairment LE strength Medieval English Literature Professor Goal (LTG) knee flexion and extension, hip flexion, ER and IR to 4+/5 or greater prior to d/c. Four Impairment UE weakness Medieval English Literature Professor Goal (LTG) Shoulder flexion, elbow flexion and extension at least 4+/5, and shoulder abduction, ER, IR 5/5 with manual muscle testing. LTG Duration 12 weeks Three Impairment Impaired gait tolerance Short Term Goal (STG) Pt will be compliant with a walking program 3 days per week for 20 mins. Mcc Goal (LTG) Pt will be compliant with a walking program, 5 days per week for 30 mins. LTG Duration 12 weeks Two Impairment L shoulder ROM Medieval English Literature Professor Goal (LTG) L shoulder flexion and abduction to 150 deg, ER to 70 deg. prior to d/c for functional reaching overhead. LTG Duration 12 weeks One Impairment L shoulder pain 9/10 Short Term Goal (STG) 6/10 or less rated L shoulder pain STG Duration 6 weeks Medieval English Literature Professor Goal (LTG) o4/10 or less rated L shoulder pain LTG Duration 12 weeks Assessment Summary Assessment Pt not able to tolerate UE ex today due to pain. Pt having a little more discomfort at the R knee joint with shuttle ex. Some + positive response to ice and US. Physical Therapy Plan Frequency and Duration Frequency of Treatment 2x/Week Duration of Treatment 12 weeks Plan of Care Start Date 09/08/17 Plan of Care End Date 12/01/17 Next Visit Focus/Plan Next Note Type Treatment Note Next Visit Plan Progress Shuttle as tolerated. Slowly return Shoulder mobility and decrease pain Might try E-Stim to L Infraspinatus to decrease pain if US was not helpful.
--- NOTE | 2017-09-20 09:03 | PT.OTN ---
Current Diagnoses Type 2 diabetes mellitus without complications (09/20/17) Morbid (severe) obesity due to excess calories (09/20/17) Body mass index (BMI) 50-59.9 , adult (09/20/17) Physical Therapy Treatment Note PT-OP-A Visit Information Start: 09/08/17 10:49 Freq: Status: Active Protocol: Document 09/20/17 08:21 [facility] (Rec: 09/20/17 09:03 [facility] [id number]) Out-Patient Physical Therapy Visit Information Visit Information Visit Type Treatment Note Visit Note 9 visits total before KX Visit Start Time 08:15 Visit Stop Time 09:15 Total Visit Minutes 60 Visit Number 4 Number of LOOM OPERATOR APPRENTICE Visits 0 PT-OP-B Current Condition Start: 09/08/17 10:49 Freq: Status: Active Protocol: Document 09/08/17 10:30 [facility] (Rec: 09/08/17 11:04 [facility] [email or web address]) Current Condition History of Current Condition Onset Date years ago Current Complaints L shoulder and impaired ability to walk History of Current Condition Pt is a 71 y/o female presenting to physical therapy with a c/o L shoulder pain, as well as bilateral knee pain and swelling L>R limiting her ability to ambulate long distances. Pt notes that she had PT prior for L shoulder with some results, but now is painful when doing her exercises. She sleeps in a upright chair with an ice pack on the L shoulder due to having pain lying down in bed, normally sleeping 2-3 hrs a night. Pt notes that this sleeping position increases her LE swelling. She does not wear compression stockings because they are expensive and Medicare does not cover them. She is waiting on new orthotics to get new shoes. She has to support her L arm most of the time due to pain is she lets it hang. She had an injection in the shoulder which worked for 4 days, and effects wore off before she even had PT last time around. Pt takes Tylenol for pain, and ice helps sometimes. She reports that her orthopedic surgeon suggested that she not do surgery on her shoulder at this point. Pt is undergoing obesity counseling, and is referred for mobility and physical activity with a goal of weight loss, as well as chronic knee and L shoulder pain. Prior Treatments and Tests MRI L shoulder 04/21/2017: Moderate AC joint degeneration , no nearby rotator cuff tears . Irregular globular signal within the superior labrum suggests superior labral tear (SLAP type I or II pathology). No para labral cyst formation . Treatment Goals Patient/Caregiver Goals 1: decrease shoulder pain, 2: increase knee and LE strength to tolerate walking. Prior Functional Status Baseline Function- ADL's Modified Independent Baseline Function- Mobility Modified Independent Baseline Function- Gait community ambulation without device. Current Functional Impairments (Reported) Functional Limitations- ADL's modified indep. Functional Limitations- Mobility/Gait Indep community gait 2 days per week, with increased pain and fatigue. PT-OP-C Subjective Start: 09/08/17 10:49 Freq: Status: Active Protocol: Document 09/20/17 08:21 [facility] (Rec: 09/20/17 09:03 [facility] [id number]) OP-PT Subjective Patient Comments Patient Comments States shoulder is still sore. Reports she is noticing her thighs are stronger and she is able to walk a little faster. PT-OP-F Manual Assessment Start: 09/08/17 10:49 Freq: Status: Active Protocol: Document 09/08/17 10:30 [facility] (Rec: 09/08/17 13:39 [facility] [email or web address]) Manual Assessments Soft Tissue Assessment Soft Tissue Mobility Assessment TTP: L subacromial bursa, anterior and medial deltoids, biceps long head, infra and supraspinatus. PT-OP-G Mobility & Gait Start: 09/08/17 10:49 Freq: Status: Active Protocol: Document 09/08/17 10:30 [facility] (Rec: 09/08/17 13:39 [facility] [email or web address]) OP Gait Assessment Comments Gait Comments Mildly antalgic, increased lateral sway, decreased step length on the L. PT-OP-H Neuro Start: 09/08/17 10:49 Freq: Status: Active Protocol: Document 09/08/17 10:30 [facility] (Rec: 09/08/17 13:39 [facility] [email or web address]) Sensation Evaluation Comments Summary Comments Impaired sensation B toes, intact plantar and dorsal surface of feet. Deep Tendon Reflex & Clonus Assessment Deep Tendon Reflex Bilateral Achilles Deep Tendon Reflex 1+ Diminished Bilateral Patellar Deep Tendon Reflex 1+ Diminished Ankle Clonus Bilateral Clonus Assessment Absent PT-OP-K Range of Motion Start: 09/08/17 10:49 Freq: Status: Active Protocol: Document 09/08/17 10:30 [facility] (Rec: 09/08/17 13:42 [facility] [id number]) Shoulder Goniometric Range of Motion Shoulder Measured in Degrees Right Active Testing Position Sitting Flexion 150 Abduction 155 External Rotation at 90 degrees 75 Abduction Internal Rotation 80 Left Active Testing Position Sitting Flexion 145 Abduction 105 External Rotation at 90 degrees 45 Abduction Internal Rotation 75 Knee Goniometric Range of Motion Knee Measured in Degrees Right Flexion Active (degrees) 125 Hyper-Extension Active 2 Left Patient Position Supine Flexion Active (degrees) 115 Extension Active (degrees) 5 Extension Passive (degrees) 0 Knee ROM Limitations Comments L knee lacking 5 degrees of extension with AROM. PT-OP-L Special Tests Start: 09/08/17 10:49 Freq: Status: Active Protocol: Document 09/08/17 10:30 [facility] (Rec: 09/08/17 14:52 [facility] [email or web address]) Special Tests Cervical Spine Special Tests Spurling's Test Test Results Negative Shoulder Special Tests Lift-Off Rotator Cuff Test Results negative B Empty Can Test Results positive L, negative R AC Joint Compression Test Results positive L, negative R Anderson Cole Impingement Test Results positive L, negative R Load and Shift Test Results negative B Speed's Biceps Test Results negative B Apprehension Test Test Results negative B Knee Special Tests Eccentric step down test Test Results positive for pain on the L Comments 6 step Varus- 25 Degrees Test Results negative B Varus- 0 Degrees Test Results negative B Valgus- 25 Degrees Test Results negative B Valgus- 0 Degrees Test Results negative B PT-OP-M Strength Start: 09/08/17 10:49 Freq: Status: Active Protocol: Document 09/08/17 10:30 [facility] (Rec: 09/08/17 14:52 [facility] [id number]) Shoulder Strength Shoulder Manual Muscle Testing Right Flexion 4+ Good+ Abduction (C5) 5 Normal External Rotation 5 Normal Internal Rotation 5 Normal Left Flexion 4 Good Abduction (C5) 4- Good- External Rotation 4+ Good+ Internal Rotation 5 Normal Elbow/Forearm Strength Elbow and Forearm Manual Muscle Testing Right Flexion (C6) 4+ Good+ Extension (C7) 4+ Good+ Left Flexion (C6) 4- Good- Extension (C7) 4 Good PT-OP-Q Treatments Start: 09/08/17 10:49 Freq: Status: Active Protocol: Document 09/20/17 08:21 [facility] (Rec: 09/20/17 09:03 [facility] [id number]) Cardio Equipment Recumbent Elliptical (Biodex) Duration (Minutes) 7 Resistance Lev 1 Seat Position 7 Gym Equipment Shuttle Recovery Bilateral Squats Details ball btwn knees Resistance 75# Shuttle Recovery Platform Stable Reps/Time 30 Unilateral Squats Details shira Resistance 50 Shuttle Recovery Platform Stable Reps/Time 10x3 Therapeutic Exercises Standing Exercises 3 Standing Exercise Name scapular retraction/shoulder ext Side bilateral Equipment Used L1 Reps/Minutes 1x10 Comments tactile cuing 2 Standing Exercise Name Habd Side bilateral Resistance L1 Reps/Minutes 15 Comments at sides 1 Standing Exercise Name shoulder ER Side left Resistance L1 Reps/Minutes 2x5 Comments comfortable range PT-OP-R Modalities Start: 09/08/17 10:49 Freq: Status: Active Protocol: Document 09/20/17 08:21 [facility] (Rec: 09/20/17 09:03 [facility] [id number]) Electric Stimulation Electric Stimulation Interferential Current (IFC) Body Location L shoulder Duration (Minutes) 15 Combined With Heat/Cold Cold Pack Ultrasound Therapy Treatment Right Knee Treatment Duration (minutes) 8 Patient Position Hooklying Frequency Setting (mHz) 1 Intensity Setting (w/cm2) 1.0 Comments Subpatellar, lateral/medial joint line. PT-OP-T Assessment and Plan Start: 09/08/17 10:49 Freq: Status: Active Protocol: Document 09/20/17 08:21 [facility] (Rec: 09/20/17 09:03 [facility] [id number]) Physical Therapy Assessment Goals Five Impairment LE strength Belt Builder Helper Goal (LTG) knee flexion and extension, hip flexion, ER and IR to 4+/5 or greater prior to d/c. Four Impairment UE weakness Belt Builder Helper Goal (LTG) Shoulder flexion, elbow flexion and extension at least 4+/5, and shoulder abduction, ER, IR 5/5 with manual muscle testing. LTG Duration 12 weeks Three Impairment Impaired gait tolerance Short Term Goal (STG) Pt will be compliant with a walking program 3 days per week for 20 mins. Belt Builder Helper Goal (LTG) Pt will be compliant with a walking program, 5 days per week for 30 mins. LTG Duration 12 weeks Two Impairment L shoulder ROM Belt Builder Helper Goal (LTG) L shoulder flexion and abduction to 150 deg, ER to 70 deg. prior to d/c for functional reaching overhead. LTG Duration 12 weeks One Impairment L shoulder pain 9/10 Short Term Goal (STG) 6/10 or less rated L shoulder pain STG Duration 6 weeks Belt Builder Helper Goal (LTG) o4/10 or less rated L shoulder pain LTG Duration 12 weeks Assessment Summary Assessment Pt required cueing to stay in painfree range with exercises and use appropriate resistance at home. Able to tolerate single leg press with med glide to patella of R knee Physical Therapy Plan Frequency and Duration Frequency of Treatment 2x/Week Duration of Treatment 12 weeks Plan of Care Start Date 09/08/17 Plan of Care End Date 12/01/17 Next Visit Focus/Plan Next Note Type Treatment Note Next Visit Plan Advance shouler mobility, possibly joint mobs & STM
--- NOTE | 2017-09-22 09:01 | PT.OTN ---
Current Diagnoses Type 2 diabetes mellitus without complications (09/22/17) Morbid (severe) obesity due to excess calories (09/22/17) Body mass index (BMI) 50-59.9 , adult (09/22/17) Physical Therapy Treatment Note PT-OP-A Visit Information Start: 09/08/17 10:49 Freq: Status: Active Protocol: Document 09/22/17 08:13 [facility] (Rec: 09/22/17 09:01 [facility] [id number]) Out-Patient Physical Therapy Visit Information Visit Information Visit Type Treatment Note Visit Note 8 visits total before KX Visit Start Time 08:15 Visit Stop Time 09:10 Total Visit Minutes 55 Visit Number 5 Number of CATERER HELPER Visits 0 PT-OP-B Current Condition Start: 09/08/17 10:49 Freq: Status: Active Protocol: Document 09/08/17 10:30 [facility] (Rec: 09/08/17 11:04 [facility] [email or web address]) Current Condition History of Current Condition Onset Date years ago Current Complaints L shoulder and impaired ability to walk History of Current Condition Pt is a 71 y/o female presenting to physical therapy with a c/o L shoulder pain, as well as bilateral knee pain and swelling L>R limiting her ability to ambulate long distances. Pt notes that she had PT prior for L shoulder with some results, but now is painful when doing her exercises. She sleeps in a upright chair with an ice pack on the L shoulder due to having pain lying down in bed, normally sleeping 2-3 hrs a night. Pt notes that this sleeping position increases her LE swelling. She does not wear compression stockings because they are expensive and Medicare does not cover them. She is waiting on new orthotics to get new shoes. She has to support her L arm most of the time due to pain is she lets it hang. She had an injection in the shoulder which worked for 4 days, and effects wore off before she even had PT last time around. Pt takes Tylenol for pain, and ice helps sometimes. She reports that her orthopedic surgeon suggested that she not do surgery on her shoulder at this point. Pt is undergoing obesity counseling, and is referred for mobility and physical activity with a goal of weight loss, as well as chronic knee and L shoulder pain. Prior Treatments and Tests MRI L shoulder 04/21/2017: Moderate AC joint degeneration , no nearby rotator cuff tears . Irregular globular signal within the superior labrum suggests superior labral tear (SLAP type I or II pathology). No para labral cyst formation . Treatment Goals Patient/Caregiver Goals 1: decrease shoulder pain, 2: increase knee and LE strength to tolerate walking. Prior Functional Status Baseline Function- ADL's Modified Independent Baseline Function- Mobility Modified Independent Baseline Function- Gait community ambulation without device. Current Functional Impairments (Reported) Functional Limitations- ADL's modified indep. Functional Limitations- Mobility/Gait Indep community gait 2 days per week, with increased pain and fatigue. PT-OP-C Subjective Start: 09/08/17 10:49 Freq: Status: Active Protocol: Document 09/22/17 08:13 [facility] (Rec: 09/22/17 09:01 [facility] [id number]) OP-PT Subjective Patient Comments Patient Comments Pt reports she had to sleep in her chair the past 3 days d/t pain. Reports she had inc pain after last session. No help with Estim. PT-OP-F Manual Assessment Start: 09/08/17 10:49 Freq: Status: Active Protocol: Document 09/08/17 10:30 [facility] (Rec: 09/08/17 13:39 [facility] [email or web address]) Manual Assessments Soft Tissue Assessment Soft Tissue Mobility Assessment TTP: L subacromial bursa, anterior and medial deltoids, biceps long head, infra and supraspinatus. PT-OP-G Mobility & Gait Start: 09/08/17 10:49 Freq: Status: Active Protocol: Document 09/08/17 10:30 [facility] (Rec: 09/08/17 13:39 [facility] [email or web address]) OP Gait Assessment Comments Gait Comments Mildly antalgic, increased lateral sway, decreased step length on the L. PT-OP-H Neuro Start: 09/08/17 10:49 Freq: Status: Active Protocol: Document 09/08/17 10:30 [facility] (Rec: 09/08/17 13:39 [facility] [id number]) Sensation Evaluation Comments Summary Comments Impaired sensation B toes, intact plantar and dorsal surface of feet. Deep Tendon Reflex & Clonus Assessment Deep Tendon Reflex Bilateral Achilles Deep Tendon Reflex 1+ Diminished Bilateral Patellar Deep Tendon Reflex 1+ Diminished Ankle Clonus Bilateral Clonus Assessment Absent PT-OP-K Range of Motion Start: 09/08/17 10:49 Freq: Status: Active Protocol: Document 09/08/17 10:30 [facility] (Rec: 09/08/17 13:42 [facility] [id number]) Shoulder Goniometric Range of Motion Shoulder Measured in Degrees Right Active Testing Position Sitting Flexion 150 Abduction 155 External Rotation at 90 degrees 75 Abduction Internal Rotation 80 Left Active Testing Position Sitting Flexion 145 Abduction 105 External Rotation at 90 degrees 45 Abduction Internal Rotation 75 Knee Goniometric Range of Motion Knee Measured in Degrees Right Flexion Active (degrees) 125 Hyper-Extension Active 2 Left Patient Position Supine Flexion Active (degrees) 115 Extension Active (degrees) 5 Extension Passive (degrees) 0 Knee ROM Limitations Comments L knee lacking 5 degrees of extension with AROM. PT-OP-L Special Tests Start: 09/08/17 10:49 Freq: Status: Active Protocol: Document 09/08/17 10:30 [facility] (Rec: 09/08/17 14:52 [facility] [id number]) Special Tests Cervical Spine Special Tests Spurling's Test Test Results Negative Shoulder Special Tests Lift-Off Rotator Cuff Test Results negative B Empty Can Test Results positive L, negative R AC Joint Compression Test Results positive L, negative R Anderson Cole Impingement Test Results positive L, negative R Load and Shift Test Results negative B Speed's Biceps Test Results negative B Apprehension Test Test Results negative B Knee Special Tests Eccentric step down test Test Results positive for pain on the L Comments 6 step Varus- 25 Degrees Test Results negative B Varus- 0 Degrees Test Results negative B Valgus- 25 Degrees Test Results negative B Valgus- 0 Degrees Test Results negative B PT-OP-M Strength Start: 09/08/17 10:49 Freq: Status: Active Protocol: Document 09/08/17 10:30 [facility] (Rec: 09/08/17 14:52 [facility] [id number]) Shoulder Strength Shoulder Manual Muscle Testing Right Flexion 4+ Good+ Abduction (C5) 5 Normal External Rotation 5 Normal Internal Rotation 5 Normal Left Flexion 4 Good Abduction (C5) 4- Good- External Rotation 4+ Good+ Internal Rotation 5 Normal Elbow/Forearm Strength Elbow and Forearm Manual Muscle Testing Right Flexion (C6) 4+ Good+ Extension (C7) 4+ Good+ Left Flexion (C6) 4- Good- Extension (C7) 4 Good PT-OP-Q Treatments Start: 09/08/17 10:49 Freq: Status: Active Protocol: Document 09/22/17 08:13 [facility] (Rec: 09/22/17 09:01 [facility] [id number]) Cardio Equipment Recumbent Elliptical (Biodex) Duration (Minutes) 7 Resistance Lev 1 Seat Position 7 Gym Equipment Shuttle Recovery Bilateral Squats Details ball btwn knees Resistance 87# Shuttle Recovery Platform Stable Reps/Time 30 Unilateral Squats Details shira Resistance 50 Shuttle Recovery Platform Stable Reps/Time 10x3 Manual Therapy Treatment Soft Tissue Mobilization 1 Body Location UT/LS Mobilization Type Rolling Intensity/Depth Moderate PT-OP-R Modalities Start: 09/08/17 10:49 Freq: Status: Active Protocol: Document 09/22/17 08:13 [facility] (Rec: 09/22/17 09:01 [facility] [id number]) Electric Stimulation Electric Stimulation Interferential Current (IFC) Body Location L shoulder Duration (Minutes) 15 Combined With Heat/Cold Cold Pack Ultrasound Therapy Treatment Right Knee Treatment Duration (minutes) 8 Patient Position Sitting Frequency Setting (mHz) 1 Intensity Setting (w/cm2) 1.0 Comments Subpatellar, lateral/medial joint line. PT-OP-T Assessment and Plan Start: 09/08/17 10:49 Freq: Status: Active Protocol: Document 09/22/17 08:13 [facility] (Rec: 09/22/17 09:01 [facility] [id number]) Physical Therapy Assessment Goals Five Impairment LE strength Halfway Goal (LTG) knee flexion and extension, hip flexion, ER and IR to 4+/5 or greater prior to d/c. Four Impairment UE weakness Hydrogen Operator Goal (LTG) Shoulder flexion, elbow flexion and extension at least 4+/5, and shoulder abduction, ER, IR 5/5 with manual muscle testing. LTG Duration 12 weeks Three Impairment Impaired gait tolerance Short Term Goal (STG) Pt will be compliant with a walking program 3 days per week for 20 mins. Hydrogen Operator Goal (LTG) Pt will be compliant with a walking program, 5 days per week for 30 mins. LTG Duration 12 weeks Two Impairment L shoulder ROM Halfway Goal (LTG) L shoulder flexion and abduction to 150 deg, ER to 70 deg. prior to d/c for functional reaching overhead. LTG Duration 12 weeks One Impairment L shoulder pain 9/10 Short Term Goal (STG) 6/10 or less rated L shoulder pain STG Duration 6 weeks Halfway Goal (LTG) o4/10 or less rated L shoulder pain LTG Duration 12 weeks Assessment Summary Assessment Pt instructed to not doing ER exercise or abd d/t pain at home. Pt is noticing inc strength with LE mobility. No inc in pain with today's treatment for L shoulder. Physical Therapy Plan Frequency and Duration Frequency of Treatment 2x/Week Duration of Treatment 12 weeks Plan of Care Start Date 09/08/17 Plan of Care End Date 12/01/17 Next Visit Focus/Plan Next Note Type Treatment Note Next Visit Plan Try cane AA exercises for range of shoulder & inc HEP exercises for knee.
--- NOTE | 2017-09-27 09:21 | PT.OTN ---
Current Diagnoses Type 2 diabetes mellitus without complications (09/27/17) Morbid (severe) obesity due to excess calories (09/27/17) Body mass index (BMI) 50-59.9 , adult (09/27/17) Physical Therapy Treatment Note PT-OP-A Visit Information Start: 09/08/17 10:49 Freq: Status: Active Protocol: Document 09/27/17 08:15 LRN (Rec: 09/27/17 09:01 LRN [id number]) Out-Patient Physical Therapy Visit Information Visit Information Visit Type Treatment Note Visit Note 7 visits total before KX Visit Start Time 08:15 Visit Stop Time 09:00 Total Visit Minutes 45 Visit Number 5 Number of AUTOMOTIVE FLEET SUPERVISOR Visits 0 Evaluation Information Evaluation Date 09/08/16 PT-OP-B Current Condition Start: 09/08/17 10:49 Freq: Status: Active Protocol: Document 09/08/17 10:30 RCC (Rec: 09/08/17 11:04 RCC [email or web address]) Current Condition History of Current Condition Onset Date years ago Current Complaints L shoulder and impaired ability to walk History of Current Condition Pt is a 71 y/o female presenting to physical therapy with a c/o L shoulder pain, as well as bilateral knee pain and swelling L>R limiting her ability to ambulate long distances. Pt notes that she had PT prior for L shoulder with some results, but now is painful when doing her exercises. She sleeps in a upright chair with an ice pack on the L shoulder due to having pain lying down in bed, normally sleeping 2-3 hrs a night. Pt notes that this sleeping position increases her LE swelling. She does not wear compression stockings because they are expensive and Medicare does not cover them. She is waiting on new orthotics to get new shoes. She has to support her L arm most of the time due to pain is she lets it hang. She had an injection in the shoulder which worked for 4 days, and effects wore off before she even had PT last time around. Pt takes Tylenol for pain, and ice helps sometimes. She reports that her orthopedic surgeon suggested that she not do surgery on her shoulder at this point. Pt is undergoing obesity counseling, and is referred for mobility and physical activity with a goal of weight loss, as well as chronic knee and L shoulder pain. Prior Treatments and Tests MRI L shoulder 04/21/2017: Moderate AC joint degeneration , no nearby rotator cuff tears . Irregular globular signal within the superior labrum suggests superior labral tear (SLAP type I or II pathology). No para labral cyst formation . Treatment Goals Patient/Caregiver Goals 1: decrease shoulder pain, 2: increase knee and LE strength to tolerate walking. Prior Functional Status Baseline Function- ADL's Modified Independent Baseline Function- Mobility Modified Independent Baseline Function- Gait community ambulation without device. Current Functional Impairments (Reported) Functional Limitations- ADL's modified indep. Functional Limitations- Mobility/Gait Indep community gait 2 days per week, with increased pain and fatigue. PT-OP-C Subjective Start: 09/08/17 10:49 Freq: Status: Active Protocol: Document 09/27/17 08:15 LRN (Rec: 09/27/17 09:01 LRN [id number]) OP-PT Subjective Patient Comments Patient Comments States she hasn't been able to sleep in her bed for 7 days. Sleeping in chair with neck support. Strengthening the R leg has helped. Still feels weak. Can walk more distance without the leg feeling as tired so quickly. PT-OP-F Manual Assessment Start: 09/08/17 10:49 Freq: Status: Active Protocol: Document 09/08/17 10:30 RCC (Rec: 09/08/17 13:39 RCC [email or web address]) Manual Assessments Soft Tissue Assessment Soft Tissue Mobility Assessment TTP: L subacromial bursa, anterior and medial deltoids, biceps long head, infra and supraspinatus. PT-OP-G Mobility & Gait Start: 09/08/17 10:49 Freq: Status: Active Protocol: Document 09/08/17 10:30 RCC (Rec: 09/08/17 13:39 RCC [email or web address]) OP Gait Assessment Comments Gait Comments Mildly antalgic, increased lateral sway, decreased step length on the L. PT-OP-H Neuro Start: 09/08/17 10:49 Freq: Status: Active Protocol: Document 09/08/17 10:30 RCC (Rec: 09/08/17 13:39 RCC [email or web address]) Sensation Evaluation Comments Summary Comments Impaired sensation B toes, intact plantar and dorsal surface of feet. Deep Tendon Reflex & Clonus Assessment Deep Tendon Reflex Bilateral Achilles Deep Tendon Reflex 1+ Diminished Bilateral Patellar Deep Tendon Reflex 1+ Diminished Ankle Clonus Bilateral Clonus Assessment Absent PT-OP-K Range of Motion Start: 09/08/17 10:49 Freq: Status: Active Protocol: Document 09/08/17 10:30 RCC (Rec: 09/08/17 13:42 RCC [email or web address]) Shoulder Goniometric Range of Motion Shoulder Measured in Degrees Right Active Testing Position Sitting Flexion 150 Abduction 155 External Rotation at 90 degrees 75 Abduction Internal Rotation 80 Left Active Testing Position Sitting Flexion 145 Abduction 105 External Rotation at 90 degrees 45 Abduction Internal Rotation 75 Knee Goniometric Range of Motion Knee Measured in Degrees Right Flexion Active (degrees) 125 Hyper-Extension Active 2 Left Patient Position Supine Flexion Active (degrees) 115 Extension Active (degrees) 5 Extension Passive (degrees) 0 Knee ROM Limitations Comments L knee lacking 5 degrees of extension with AROM. PT-OP-L Special Tests Start: 09/08/17 10:49 Freq: Status: Active Protocol: Document 09/08/17 10:30 RCC (Rec: 09/08/17 14:52 RCC [email or web address]) Special Tests Cervical Spine Special Tests Spurling's Test Test Results Negative Shoulder Special Tests Lift-Off Rotator Cuff Test Results negative B Empty Can Test Results positive L, negative R AC Joint Compression Test Results positive L, negative R Anderson Cole Impingement Test Results positive L, negative R Load and Shift Test Results negative B Speed's Biceps Test Results negative B Apprehension Test Test Results negative B Knee Special Tests Eccentric step down test Test Results positive for pain on the L Comments 6 step Varus- 25 Degrees Test Results negative B Varus- 0 Degrees Test Results negative B Valgus- 25 Degrees Test Results negative B Valgus- 0 Degrees Test Results negative B PT-OP-M Strength Start: 09/08/17 10:49 Freq: Status: Active Protocol: Document 09/08/17 10:30 RCC (Rec: 09/08/17 14:52 RCC [email or web address]) Shoulder Strength Shoulder Manual Muscle Testing Right Flexion 4+ Good+ Abduction (C5) 5 Normal External Rotation 5 Normal Internal Rotation 5 Normal Left Flexion 4 Good Abduction (C5) 4- Good- External Rotation 4+ Good+ Internal Rotation 5 Normal Elbow/Forearm Strength Elbow and Forearm Manual Muscle Testing Right Flexion (C6) 4+ Good+ Extension (C7) 4+ Good+ Left Flexion (C6) 4- Good- Extension (C7) 4 Good PT-OP-Q Treatments Start: 09/08/17 10:49 Freq: Status: Active Protocol: Document 09/27/17 08:15 LRN (Rec: 09/27/17 09:01 LRN [id number]) Cardio Equipment Upper Body Ergometer (UBE) Duration (Minutes) 8 RPM 60 Seat Position 15 Height 2 Other Fwd. Working at very slow rpm Gym Equipment Shuttle Recovery Bilateral Squats Details ball btwn knees Resistance 87# Shuttle Recovery Platform Stable Reps/Time 30 Unilateral Squats Details shira Resistance 50 Shuttle Recovery Platform Stable Reps/Time 10x3 Therapeutic Exercises Supine Exercises 3 Supine Exercise Name Ball Squeeze Equipment Used Small ball Reps/Minutes 15x Comments Supine with bolster Manual Therapy Treatment Soft Tissue Mobilization 1 Body Location R inner thigh Mobilization Type Strumming Intensity/Depth Superficial Body Position Supine with bolster Self-Care/Home Management Treatment Activities Self-Care/Home Management Activities Pt instructed to do Ball squeeze ex at home. PT-OP-R Modalities Start: 09/08/17 10:49 Freq: Status: Active Protocol: Document 09/27/17 08:15 LRN (Rec: 09/27/17 09:01 LRN [id number]) Ultrasound Therapy Treatment Right Knee Treatment Duration (minutes) 8 Patient Position Supine Frequency Setting (mHz) 3 Intensity Setting (w/cm2) 1.5 Comments R hip AD proximal to mid thigh PT-OP-T Assessment and Plan Start: 09/08/17 10:49 Freq: Status: Active Protocol: Document 09/27/17 08:15 LRN (Rec: 09/27/17 09:01 LRN [id number]) Physical Therapy Assessment Impairments Impairments Activity Tolerance Functional Activities Gait Pain ROM Soft Tissue Mobility Strength Goals Five Impairment LE strength Line Director Goal (LTG) knee flexion and extension, hip flexion, ER and IR to 4+/5 or greater prior to d/c. Four Impairment UE weakness [facility] Goal (LTG) Shoulder flexion, elbow flexion and extension at least 4+/5, and shoulder abduction, ER, IR 5/5 with manual muscle testing. LTG Duration 12 weeks Three Impairment Impaired gait tolerance Short Term Goal (STG) Pt will be compliant with a walking program 3 days per week for 20 mins. [facility] Goal (LTG) Pt will be compliant with a walking program, 5 days per week for 30 mins. LTG Duration 12 weeks Two Impairment L shoulder ROM [facility] Goal (LTG) L shoulder flexion and abduction to 150 deg, ER to 70 deg. prior to d/c for functional reaching overhead. LTG Duration 12 weeks One Impairment L shoulder pain 9/10 Short Term Goal (STG) 6/10 or less rated L shoulder pain STG Duration GOAL MET (09/27/17: Pain 5/10 at rest) [facility] Goal (LTG) o4/10 or less rated L shoulder pain LTG Duration 12 weeks Assessment Summary Assessment + response to US. Pt had no pain in R inner thigh in standing after treatment. Pt tolerated UBE ex without pain when shoulder movement is at/ below shoulder height. Physical Therapy Plan Frequency and Duration Frequency of Treatment 2x/Week Duration of Treatment 12 weeks Plan of Care Start Date 09/08/17 Plan of Care End Date 12/01/17 Next Visit Focus/Plan Next Note Type Treatment Note Next Visit Plan Try cane AAROM for shoulder. Strengthen R hip/knee strength > L.
--- NOTE | 2017-09-29 14:26 | PT.OTN ---
Current Diagnoses Type 2 diabetes mellitus without complications (09/29/17) Morbid (severe) obesity due to excess calories (09/29/17) Body mass index (BMI) 50-59.9 , adult (09/29/17) Physical Therapy Treatment Note PT-OP-A Visit Information Start: 09/08/17 10:49 Freq: Status: Active Protocol: Document 09/29/17 08:16 LRN (Rec: 09/29/17 09:10 LRN [id number]) Out-Patient Physical Therapy Visit Information Visit Information Visit Type Treatment Note Visit Note 5 visits total before KX Visit Start Time 08:16 Visit Stop Time 09:07 Total Visit Minutes 51 Visit Number 7 Number of EDUCATIONAL CONSULTANT Visits 0 Evaluation Information Evaluation Date 09/08/16 PT-OP-B Current Condition Start: 09/08/17 10:49 Freq: Status: Active Protocol: Document 09/08/17 10:30 RCC (Rec: 09/08/17 11:04 RCC [email or web address]) Current Condition History of Current Condition Onset Date years ago Current Complaints L shoulder and impaired ability to walk History of Current Condition Pt is a 71 y/o female presenting to physical therapy with a c/o L shoulder pain, as well as bilateral knee pain and swelling L>R limiting her ability to ambulate long distances. Pt notes that she had PT prior for L shoulder with some results, but now is painful when doing her exercises. She sleeps in a upright chair with an ice pack on the L shoulder due to having pain lying down in bed, normally sleeping 2-3 hrs a night. Pt notes that this sleeping position increases her LE swelling. She does not wear compression stockings because they are expensive and Medicare does not cover them. She is waiting on new orthotics to get new shoes. She has to support her L arm most of the time due to pain is she lets it hang. She had an injection in the shoulder which worked for 4 days, and effects wore off before she even had PT last time around. Pt takes Tylenol for pain, and ice helps sometimes. She reports that her orthopedic surgeon suggested that she not do surgery on her shoulder at this point. Pt is undergoing obesity counseling, and is referred for mobility and physical activity with a goal of weight loss, as well as chronic knee and L shoulder pain. Prior Treatments and Tests MRI L shoulder 04/21/2017: Moderate AC joint degeneration , no nearby rotator cuff tears . Irregular globular signal within the superior labrum suggests superior labral tear (SLAP type I or II pathology). No para labral cyst formation . Treatment Goals Patient/Caregiver Goals 1: decrease shoulder pain, 2: increase knee and LE strength to tolerate walking. Prior Functional Status Baseline Function- ADL's Modified Independent Baseline Function- Mobility Modified Independent Baseline Function- Gait community ambulation without device. Current Functional Impairments (Reported) Functional Limitations- ADL's modified indep. Functional Limitations- Mobility/Gait Indep community gait 2 days per week, with increased pain and fatigue. PT-OP-C Subjective Start: 09/08/17 10:49 Freq: Status: Active Protocol: Document 09/29/17 08:16 LRN (Rec: 09/29/17 09:10 LRN [id number]) OP-PT Subjective Patient Comments Patient Comments States the R thigh has not hurt but hasn't done stairs. States she walked her and her calves felt tight. Thought she was walking faster. Shoulder hurts down the upper arm, but had bumped the arm yesterday. PT-OP-F Manual Assessment Start: 09/08/17 10:49 Freq: Status: Active Protocol: Document 09/08/17 10:30 RCC (Rec: 09/08/17 13:39 RCC [email or web address]) Manual Assessments Soft Tissue Assessment Soft Tissue Mobility Assessment TTP: L subacromial bursa, anterior and medial deltoids, biceps long head, infra and supraspinatus. PT-OP-G Mobility & Gait Start: 09/08/17 10:49 Freq: Status: Active Protocol: Document 09/08/17 10:30 RCC (Rec: 09/08/17 13:39 RCC [email or web address]) OP Gait Assessment Comments Gait Comments Mildly antalgic, increased lateral sway, decreased step length on the L. PT-OP-H Neuro Start: 09/08/17 10:49 Freq: Status: Active Protocol: Document 09/08/17 10:30 RCC (Rec: 09/08/17 13:39 RCC [email or web address]) Sensation Evaluation Comments Summary Comments Impaired sensation B toes, intact plantar and dorsal surface of feet. Deep Tendon Reflex & Clonus Assessment Deep Tendon Reflex Bilateral Achilles Deep Tendon Reflex 1+ Diminished Bilateral Patellar Deep Tendon Reflex 1+ Diminished Ankle Clonus Bilateral Clonus Assessment Absent PT-OP-K Range of Motion Start: 09/08/17 10:49 Freq: Status: Active Protocol: Document 09/08/17 10:30 RCC (Rec: 09/08/17 13:42 RCC [email or web address]) Shoulder Goniometric Range of Motion Shoulder Measured in Degrees Right Active Testing Position Sitting Flexion 150 Abduction 155 External Rotation at 90 degrees 75 Abduction Internal Rotation 80 Left Active Testing Position Sitting Flexion 145 Abduction 105 External Rotation at 90 degrees 45 Abduction Internal Rotation 75 Knee Goniometric Range of Motion Knee Measured in Degrees Right Flexion Active (degrees) 125 Hyper-Extension Active 2 Left Patient Position Supine Flexion Active (degrees) 115 Extension Active (degrees) 5 Extension Passive (degrees) 0 Knee ROM Limitations Comments L knee lacking 5 degrees of extension with AROM. PT-OP-L Special Tests Start: 09/08/17 10:49 Freq: Status: Active Protocol: Document 09/08/17 10:30 RCC (Rec: 09/08/17 14:52 RCC [email or web address]) Special Tests Cervical Spine Special Tests Spurling's Test Test Results Negative Shoulder Special Tests Lift-Off Rotator Cuff Test Results negative B Empty Can Test Results positive L, negative R AC Joint Compression Test Results positive L, negative R Anderson Cole Impingement Test Results positive L, negative R Load and Shift Test Results negative B Speed's Biceps Test Results negative B Apprehension Test Test Results negative B Knee Special Tests Eccentric step down test Test Results positive for pain on the L Comments 6 step Varus- 25 Degrees Test Results negative B Varus- 0 Degrees Test Results negative B Valgus- 25 Degrees Test Results negative B Valgus- 0 Degrees Test Results negative B PT-OP-M Strength Start: 09/08/17 10:49 Freq: Status: Active Protocol: Document 09/08/17 10:30 RCC (Rec: 09/08/17 14:52 RCC [email or web address]) Shoulder Strength Shoulder Manual Muscle Testing Right Flexion 4+ Good+ Abduction (C5) 5 Normal External Rotation 5 Normal Internal Rotation 5 Normal Left Flexion 4 Good Abduction (C5) 4- Good- External Rotation 4+ Good+ Internal Rotation 5 Normal Elbow/Forearm Strength Elbow and Forearm Manual Muscle Testing Right Flexion (C6) 4+ Good+ Extension (C7) 4+ Good+ Left Flexion (C6) 4- Good- Extension (C7) 4 Good PT-OP-Q Treatments Start: 09/08/17 10:49 Freq: Status: Active Protocol: Document 09/29/17 08:16 LRN (Rec: 09/29/17 09:10 LRN [id number]) Cardio Equipment Upper Body Ergometer (UBE) Duration (Minutes) 8 RPM 60 Seat Position 16 Height 2 Other Fwd. Working at very slow rpm Gym Equipment Shuttle Recovery Bilateral Squats Details ball btwn knees Resistance 87#, 75# Shuttle Recovery Platform Stable Reps/Time 30, 10x respectively Unilateral Squats Details shira Resistance 62#, 50# Shuttle Recovery Platform Stable Reps/Time 10x, 10x2 respectively Therapeutic Exercises Supine Exercises 4 Supine Exercise Name Shoulder AAROM with cane Side bilateral Comments L with pain, R end-range pain 3 Supine Exercise Name Ball Squeeze Equipment Used Small ball Reps/Minutes 30x Comments [place] Self-Care/Home Management Treatment Activities Self-Care/Home Management Activities I/S to do BKFO with T-Band ( issued Lev 2). PT-OP-R Modalities Start: 09/08/17 10:49 Freq: Status: Active Protocol: Document 09/29/17 08:16 LRN (Rec: 09/29/17 09:10 [facility] [id number]) Ultrasound Therapy Treatment Left Shoulder Treatment Duration (minutes) 22 Patient Position Supine Frequency Setting (mHz) 1 Intensity Setting (w/cm2) 1.5 Comments Subacromial: R - 3', L - 8' PT-OP-T Assessment and Plan Start: 09/08/17 10:49 Freq: Status: Active Protocol: Document 09/29/17 08:16 LRN (Rec: 09/29/17 09:10 LR [id number]) Physical Therapy Assessment Goals Five Impairment LE strength Half-Way Goal (LTG) knee flexion and extension, hip flexion, ER and IR to 4+/5 or greater prior to d/c. Four Impairment UE weakness Top Taper Machine Goal (LTG) Shoulder flexion, elbow flexion and extension at least 4+/5, and shoulder abduction, ER, IR 5/5 with manual muscle testing. LTG Duration 12 weeks Three Impairment Impaired gait tolerance Short Term Goal (STG) Pt will be compliant with a walking program 3 days per week for 20 mins. Half-Way Goal (LTG) Pt will be compliant with a walking program, 5 days per week for 30 mins. LTG Duration 12 weeks Two Impairment L shoulder ROM Half-Way Goal (LTG) L shoulder flexion and abduction to 150 deg, ER to 70 deg. prior to d/c for functional reaching overhead. LTG Duration 12 weeks One Impairment L shoulder pain 9/10 Short Term Goal (STG) 6/10 or less rated L shoulder pain STG Duration GOAL MET (09/27/17: Pain 5/10 at rest) Half-Way Goal (LTG) o4/10 or less rated L shoulder pain LTG Duration 12 weeks Assessment Summary Assessment Pt has no complaints of R inner thigh pain with gait. She cont's to have L shoulder pain and is now having increasing R shoulder discomfort. Physical Therapy Plan Frequency and Duration Frequency of Treatment 2x/Week Duration of Treatment 12 weeks Plan of Care Start Date 09/08/17 Plan of Care End Date 12/01/17 Next Visit Focus/Plan Next Note Type Treatment Note Next Visit Plan Advance L shoulder mobility as tolerated. Issue strengthen HEP for R shoulder. Progress R hip/knee strength. Pt to contact MD regarding no significant change in L shoulder pain.
--- NOTE | 2017-10-04 15:30 | PT.OTN ---
Current Diagnoses Type 2 diabetes mellitus without complications (10/04/17) Morbid (severe) obesity due to excess calories (10/04/17) Body mass index (BMI) 50-59.9 , adult (10/04/17) Physical Therapy Treatment Note PT-OP-A Visit Information Start: 09/08/17 10:49 Freq: Status: Active Protocol: Document 10/04/17 08:19 LRN (Rec: 10/04/17 08:59 LRN [id number]) Out-Patient Physical Therapy Visit Information Visit Information Visit Type Treatment Note Visit Note 4 visits total before KX Visit Start Time 08:19 Visit Stop Time 09:09 Total Visit Minutes 50 Visit Number 8 Number of JAVA WEB DEVELOPER Visits 0 Evaluation Information Evaluation Date 09/08/16 PT-OP-B Current Condition Start: 09/08/17 10:49 Freq: Status: Active Protocol: Document 09/08/17 10:30 RCC (Rec: 09/08/17 11:04 RCC [email or web address]) Current Condition History of Current Condition Onset Date years ago Current Complaints L shoulder and impaired ability to walk History of Current Condition Pt is a 71 y/o female presenting to physical therapy with a c/o L shoulder pain, as well as bilateral knee pain and swelling L>R limiting her ability to ambulate long distances. Pt notes that she had PT prior for L shoulder with some results, but now is painful when doing her exercises. She sleeps in a upright chair with an ice pack on the L shoulder due to having pain lying down in bed, normally sleeping 2-3 hrs a night. Pt notes that this sleeping position increases her LE swelling. She does not wear compression stockings because they are expensive and Medicare does not cover them. She is waiting on new orthotics to get new shoes. She has to support her L arm most of the time due to pain is she lets it hang. She had an injection in the shoulder which worked for 4 days, and effects wore off before she even had PT last time around. Pt takes Tylenol for pain, and ice helps sometimes. She reports that her orthopedic surgeon suggested that she not do surgery on her shoulder at this point. Pt is undergoing obesity counseling, and is referred for mobility and physical activity with a goal of weight loss, as well as chronic knee and L shoulder pain. Prior Treatments and Tests MRI L shoulder 04/21/2017: Moderate AC joint degeneration , no nearby rotator cuff tears . Irregular globular signal within the superior labrum suggests superior labral tear (SLAP type I or II pathology). No para labral cyst formation . Treatment Goals Patient/Caregiver Goals 1: decrease shoulder pain, 2: increase knee and LE strength to tolerate walking. Prior Functional Status Baseline Function- ADL's Modified Independent Baseline Function- Mobility Modified Independent Baseline Function- Gait community ambulation without device. Current Functional Impairments (Reported) Functional Limitations- ADL's modified indep. Functional Limitations- Mobility/Gait Indep community gait 2 days per week, with increased pain and fatigue. PT-OP-C Subjective Start: 09/08/17 10:49 Freq: Status: Active Protocol: Document 10/04/17 08:19 LRN (Rec: 10/04/17 08:59 LRN [id number]) OP-PT Subjective Patient Comments Patient Comments States Ultrasound on shoulders didn't seem to make much difference. States stairs are easier, so knees are getting better,. States she has seen a chiropractor and is able to move her arm a little better and pain is less on a temporay basis. PT-OP-F Manual Assessment Start: 09/08/17 10:49 Freq: Status: Active Protocol: Document 09/08/17 10:30 RCC (Rec: 09/08/17 13:39 RCC [email or web address]) Manual Assessments Soft Tissue Assessment Soft Tissue Mobility Assessment TTP: L subacromial bursa, anterior and medial deltoids, biceps long head, infra and supraspinatus. PT-OP-G Mobility & Gait Start: 09/08/17 10:49 Freq: Status: Active Protocol: Document 09/08/17 10:30 RCC (Rec: 09/08/17 13:39 RCC [email or web address]) OP Gait Assessment Comments Gait Comments Mildly antalgic, increased lateral sway, decreased step length on the L. PT-OP-H Neuro Start: 09/08/17 10:49 Freq: Status: Active Protocol: Document 09/08/17 10:30 RCC (Rec: 09/08/17 13:39 RCC [email or web address]) Sensation Evaluation Comments Summary Comments Impaired sensation B toes, intact plantar and dorsal surface of feet. Deep Tendon Reflex & Clonus Assessment Deep Tendon Reflex Bilateral Achilles Deep Tendon Reflex 1+ Diminished Bilateral Patellar Deep Tendon Reflex 1+ Diminished Ankle Clonus Bilateral Clonus Assessment Absent PT-OP-K Range of Motion Start: 09/08/17 10:49 Freq: Status: Active Protocol: Document 09/08/17 10:30 RCC (Rec: 09/08/17 13:42 RCC [email or web address]) Shoulder Goniometric Range of Motion Shoulder Measured in Degrees Right Active Testing Position Sitting Flexion 150 Abduction 155 External Rotation at 90 degrees 75 Abduction Internal Rotation 80 Left Active Testing Position Sitting Flexion 145 Abduction 105 External Rotation at 90 degrees 45 Abduction Internal Rotation 75 Knee Goniometric Range of Motion Knee Measured in Degrees Right Flexion Active (degrees) 125 Hyper-Extension Active 2 Left Patient Position Supine Flexion Active (degrees) 115 Extension Active (degrees) 5 Extension Passive (degrees) 0 Knee ROM Limitations Comments L knee lacking 5 degrees of extension with AROM. PT-OP-L Special Tests Start: 09/08/17 10:49 Freq: Status: Active Protocol: Document 09/08/17 10:30 RCC (Rec: 09/08/17 14:52 RCC [email or web address]) Special Tests Cervical Spine Special Tests Spurling's Test Test Results Negative Shoulder Special Tests Lift-Off Rotator Cuff Test Results negative B Empty Can Test Results positive L, negative R AC Joint Compression Test Results positive L, negative R Anderson Cole Impingement Test Results positive L, negative R Load and Shift Test Results negative B Speed's Biceps Test Results negative B Apprehension Test Test Results negative B Knee Special Tests Eccentric step down test Test Results positive for pain on the L Comments 6 step Varus- 25 Degrees Test Results negative B Varus- 0 Degrees Test Results negative B Valgus- 25 Degrees Test Results negative B Valgus- 0 Degrees Test Results negative B PT-OP-M Strength Start: 09/08/17 10:49 Freq: Status: Active Protocol: Document 09/08/17 10:30 RCC (Rec: 09/08/17 14:52 RCC [email or web address]) Shoulder Strength Shoulder Manual Muscle Testing Right Flexion 4+ Good+ Abduction (C5) 5 Normal External Rotation 5 Normal Internal Rotation 5 Normal Left Flexion 4 Good Abduction (C5) 4- Good- External Rotation 4+ Good+ Internal Rotation 5 Normal Elbow/Forearm Strength Elbow and Forearm Manual Muscle Testing Right Flexion (C6) 4+ Good+ Extension (C7) 4+ Good+ Left Flexion (C6) 4- Good- Extension (C7) 4 Good PT-OP-Q Treatments Start: 09/08/17 10:49 Freq: Status: Active Protocol: Document 10/04/17 08:19 LRN (Rec: 10/04/17 08:59 LRN [id number]) Cardio Equipment Upper Body Ergometer (UBE) Duration (Minutes) 8 RPM 60 Seat Position 16 Height 2 Other Fwd. Working at very slow rpm Gym Equipment Shuttle Recovery Bilateral Squats Details ball btn knees Resistance 87#, 75# Shuttle Recovery Platform Stable Reps/Time 30, 10x respectively Unilateral Squats Details shira Resistance 62#, 50# Shuttle Recovery Platform Stable Reps/Time 10x, 10x2 respectively Therapeutic Exercises Sitting Exercises 2 Sitting Exercise Name Shoulder Isometric AB Side left Comments Arm at ~45 deg's AB Standing Exercises 3 Standing Exercise Name scapular retraction/shoulder ext Side bilateral Equipment Used L1 Reps/Minutes 3x10 Comments tactile cuing 2 Standing Exercise Name Scapular depression Side bilateral Resistance L2 Equipment Used T-Band Reps/Minutes 10x3 Comments Extra time taken for training 1 Standing Exercise Name shoulder ER Side left Reps/Minutes 2x5 Comments comfortable range (L 15 deg's, R 75 deg's) Self-Care/Home Management Treatment Education Patient Education Joint Protection Posture Other Education Shoulder anatomy PT-OP-R Modalities Start: 09/08/17 10:49 Freq: Status: Active Protocol: Document 10/04/17 08:19 LRN (Rec: 10/04/17 08:59 LRN [id number]) Hot Pack/Cold Pack Treatment Cold Pack Location L Shoulder Patient Position Sitting Treatment Duration (minutes) 10 PT-OP-T Assessment and Plan Start: 09/08/17 10:49 Freq: Status: Active Protocol: Document 10/04/17 08:19 LRN (Rec: 10/04/17 08:59 LRN [id number]) Physical Therapy Assessment Impairments Impairments Activity Tolerance Functional Activities Gait Pain ROM Soft Tissue Mobility Strength Goals Five Impairment LE strength Epitaxial Reactor Operator Goal (LTG) knee flexion and extension, hip flexion, ER and IR to 4+/5 or greater prior to d/c. Four Impairment UE weakness Epitaxial Reactor Operator Goal (LTG) Shoulder flexion, elbow flexion and extension at least 4+/5, and shoulder abduction, ER, IR 5/5 with manual muscle testing. LTG Duration 12 weeks Three Impairment Impaired gait tolerance Short Term Goal (STG) Pt will be compliant with a walking program 3 days per week for 20 mins. Epitaxial Reactor Operator Goal (LTG) Pt will be compliant with a walking program, 5 days per week for 30 mins. LTG Duration 12 weeks Two Impairment L shoulder ROM Prison Goal (LTG) L shoulder flexion and abduction to 150 deg, ER to 70 deg. prior to d/c for functional reaching overhead. LTG Duration 12 weeks One Impairment L shoulder pain 9/10 Short Term Goal (STG) 6/10 or less rated L shoulder pain STG Duration GOAL MET (09/27/17: Pain 5/10 at rest) Epitaxial Reactor Operator Goal (LTG) 4/10 or less rated L shoulder pain LTG Duration 12 weeks Progress Towards Goals Progress Comments Not able to progress walking due to swelling in the feet. Assessment Summary Assessment Pt now appears to have a better understanding of her shoulder anatomy and effects with exercise; therefore she has greater tolerance to exercise today. Physical Therapy Plan Frequency and Duration Frequency of Treatment 2x/Week Duration of Treatment 12 weeks Plan of Care Start Date 09/08/17 Plan of Care End Date 12/01/17 Next Visit Focus/Plan Next Note Type Progress Note Next Visit Plan PN 1-2 visits. Advance shoulder mobility and strength as tolerated. Start HEP for strengthening and progress knee strengthening (try stair stepping). Check when pt scheduled next MD appointment.
--- NOTE | 2017-10-06 12:54 | PT.OTN ---
Current Diagnoses Type 2 diabetes mellitus without complications (10/06/17) Morbid (severe) obesity due to excess calories (10/06/17) Body mass index (BMI) 50-59.9 , adult (10/06/17) Physical Therapy Treatment Note PT-OP-A Visit Information Start: 09/08/17 10:49 Freq: Status: Active Protocol: Document 10/06/17 09:07 EA (Rec: 10/06/17 09:43 EA [id number]) Out-Patient Physical Therapy Visit Information Visit Information Visit Type Treatment Note Visit Start Time 09:00 Visit Stop Time 09:45 Visit Number 9 Number of INBOUND SALES CONSULTANT Visits 0 PT-OP-B Current Condition Start: 09/08/17 10:49 Freq: Status: Active Protocol: Document 09/08/17 10:30 RCC (Rec: 09/08/17 11:04 RCC [email or web address]) Current Condition History of Current Condition Onset Date years ago Current Complaints L shoulder and impaired ability to walk History of Current Condition Pt is a 71 y/o female presenting to physical therapy with a c/o L shoulder pain, as well as bilateral knee pain and swelling L>R limiting her ability to ambulate long distances. Pt notes that she had PT prior for L shoulder with some results, but now is painful when doing her exercises. She sleeps in a upright chair with an ice pack on the L shoulder due to having pain lying down in bed, normally sleeping 2-3 hrs a night. Pt notes that this sleeping position increases her LE swelling. She does not wear compression stockings because they are expensive and Medicare does not cover them. She is waiting on new orthotics to get new shoes. She has to support her L arm most of the time due to pain is she lets it hang. She had an injection in the shoulder which worked for 4 days, and effects wore off before she even had PT last time around. Pt takes Tylenol for pain, and ice helps sometimes. She reports that her orthopedic surgeon suggested that she not do surgery on her shoulder at this point. Pt is undergoing obesity counseling, and is referred for mobility and physical activity with a goal of weight loss, as well as chronic knee and L shoulder pain. Prior Treatments and Tests MRI L shoulder 04/21/2017: Moderate AC joint degeneration , no nearby rotator cuff tears . Irregular globular signal within the superior labrum suggests superior labral tear (SLAP type I or II pathology). No para labral cyst formation . Treatment Goals Patient/Caregiver Goals 1: decrease shoulder pain, 2: increase knee and LE strength to tolerate walking. Prior Functional Status Baseline Function- ADL's Modified Independent Baseline Function- Mobility Modified Independent Baseline Function- Gait community ambulation without device. Current Functional Impairments (Reported) Functional Limitations- ADL's modified indep. Functional Limitations- Mobility/Gait Indep community gait 2 days per week, with increased pain and fatigue. PT-OP-C Subjective Start: 09/08/17 10:49 Freq: Status: Active Protocol: Document 10/06/17 09:07 EA (Rec: 10/06/17 09:43 EA [id number]) OP-PT Subjective Patient Comments Patient Comments Patient reports knees are getting better and left shoulder still bothering her at night. PT-OP-F Manual Assessment Start: 09/08/17 10:49 Freq: Status: Active Protocol: Document 09/08/17 10:30 RCC (Rec: 09/08/17 13:39 RCC [email or web address]) Manual Assessments Soft Tissue Assessment Soft Tissue Mobility Assessment TTP: L subacromial bursa, anterior and medial deltoids, biceps long head, infra and supraspinatus. PT-OP-G Mobility & Gait Start: 09/08/17 10:49 Freq: Status: Active Protocol: Document 09/08/17 10:30 RCC (Rec: 09/08/17 13:39 RCC [email or web address]) OP Gait Assessment Comments Gait Comments Mildly antalgic, increased lateral sway, decreased step length on the L. PT-OP-H Neuro Start: 09/08/17 10:49 Freq: Status: Active Protocol: Document 09/08/17 10:30 RCC (Rec: 09/08/17 13:39 RCC [email or web address]) Sensation Evaluation Comments Summary Comments Impaired sensation B toes, intact plantar and dorsal surface of feet. Deep Tendon Reflex & Clonus Assessment Deep Tendon Reflex Bilateral Achilles Deep Tendon Reflex 1+ Diminished Bilateral Patellar Deep Tendon Reflex 1+ Diminished Ankle Clonus Bilateral Clonus Assessment Absent PT-OP-K Range of Motion Start: 09/08/17 10:49 Freq: Status: Active Protocol: Document 09/08/17 10:30 RCC (Rec: 09/08/17 13:42 RCC [email or web address]) Shoulder Goniometric Range of Motion Shoulder Measured in Degrees Right Active Testing Position Sitting Flexion 150 Abduction 155 External Rotation at 90 degrees 75 Abduction Internal Rotation 80 Left Active Testing Position Sitting Flexion 145 Abduction 105 External Rotation at 90 degrees 45 Abduction Internal Rotation 75 Knee Goniometric Range of Motion Knee Measured in Degrees Right Flexion Active (degrees) 125 Hyper-Extension Active 2 Left Patient Position Supine Flexion Active (degrees) 115 Extension Active (degrees) 5 Extension Passive (degrees) 0 Knee ROM Limitations Comments L knee lacking 5 degrees of extension with AROM. PT-OP-L Special Tests Start: 09/08/17 10:49 Freq: Status: Active Protocol: Document 09/08/17 10:30 RCC (Rec: 09/08/17 14:52 RCC [email or web address]) Special Tests Cervical Spine Special Tests Spurling's Test Test Results Negative Shoulder Special Tests Lift-Off Rotator Cuff Test Results negative B Empty Can Test Results positive L, negative R AC Joint Compression Test Results positive L, negative R Anderson Cole Impingement Test Results positive L, negative R Load and Shift Test Results negative B Speed's Biceps Test Results negative B Apprehension Test Test Results negative B Knee Special Tests Eccentric step down test Test Results positive for pain on the L Comments 6 step Varus- 25 Degrees Test Results negative B Varus- 0 Degrees Test Results negative B Valgus- 25 Degrees Test Results negative B Valgus- 0 Degrees Test Results negative B PT-OP-M Strength Start: 09/08/17 10:49 Freq: Status: Active Protocol: Document 09/08/17 10:30 RCC (Rec: 09/08/17 14:52 RCC [email or web address]) Shoulder Strength Shoulder Manual Muscle Testing Right Flexion 4+ Good+ Abduction (C5) 5 Normal External Rotation 5 Normal Internal Rotation 5 Normal Left Flexion 4 Good Abduction (C5) 4- Good- External Rotation 4+ Good+ Internal Rotation 5 Normal Elbow/Forearm Strength Elbow and Forearm Manual Muscle Testing Right Flexion (C6) 4+ Good+ Extension (C7) 4+ Good+ Left Flexion (C6) 4- Good- Extension (C7) 4 Good PT-OP-Q Treatments Start: 09/08/17 10:49 Freq: Status: Active Protocol: Document 10/06/17 09:07 EA (Rec: 10/06/17 09:43 EA [id number]) Cardio Equipment Upper Body Ergometer (UBE) Duration (Minutes) 8 RPM 60 Seat Position 16 Height 2 Other Fwd. Working at very slow rpm Gym Equipment Shuttle Recovery Bilateral Squats Details ball btn knees Resistance 87#, 75# Shuttle Recovery Platform Stable Reps/Time 30, 10x respectively Unilateral Squats Details shira Resistance 37# Shuttle Recovery Platform Stable Reps/Time 10x, 10x2 respectively Therapeutic Exercises Sitting Exercises 2 Sitting Exercise Name Shoulder Isometric AB Side left Comments Arm at ~45 deg's AB Standing Exercises 3 Standing Exercise Name scapular retraction/shoulder ext Side bilateral Equipment Used L1 Reps/Minutes 3x10 Comments tactile cuing 2 Standing Exercise Name Scapular depression Side bilateral Resistance L2 Equipment Used T-Band Reps/Minutes 10x3 Comments Extra time taken for training 1 Standing Exercise Name shoulder ER Side left Reps/Minutes 2x5 Comments comfortable range (L 15 deg's, R 75 deg's) PT-OP-R Modalities Start: 09/08/17 10:49 Freq: Status: Active Protocol: Document 10/06/17 09:07 EA (Rec: 10/06/17 09:43 EA [id number]) Electric Stimulation Electric Stimulation Interferential Current (IFC) Body Location L shoulder Duration (Minutes) 15 Combined With Heat/Cold Cold Pack Ultrasound Therapy Treatment Left Shoulder Treatment Duration (minutes) 8 Patient Position Supine Frequency Setting (mHz) 1 Intensity Setting (w/cm2) 1.5 Comments Subacromial: PT-OP-T Assessment and Plan Start: 09/08/17 10:49 Freq: Status: Active Protocol: Document 10/06/17 09:07 EA (Rec: 10/06/17 09:43 EA [id number]) Physical Therapy Assessment Assessment Summary Assessment Pt tolerated treatment well. Physical Therapy Plan Next Visit Focus/Plan Next Visit Plan Cont with current plan
--- NOTE | 2017-10-11 16:57 | PT.OTN ---
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 Pt notes that she had PT prior for L shoulder with some results, but now is painful when doing her exercises. She sleeps in a upright chair with an ice pack on the L shoulder due to having pain lying down in bed, normally sleeping 2-3 hrs a night. Pt notes that this sleeping position increases her LE swelling. She does not wear compression stockings because they are expensive and Medicare does not cover them. She is waiting on new orthotics to get new shoes. She has to support her L arm most of the time due to pain is she lets it hang. She had an injection in the shoulder which worked for 4 days, and effects wore off before she even had PT last time around. Pt takes Tylenol for pain, and ice helps sometimes. She reports that her orthopedic surgeon suggested that she not do surgery on her shoulder at this point. Pt is undergoing obesity counseling, and is referred for mobility and physical activity with a goal of weight loss, as well as chronic knee and L shoulder pain. Prior Treatments and Tests MRI L shoulder 04/21/2017: Moderate AC joint degeneration , no nearby rotator cuff tears . Irregular globular signal within the superior labrum suggests superior labral tear (SLAP type I or II pathology). No para labral cyst formation . Treatment Goals Patient/Caregiver Goals 1: decrease shoulder pain, 2: increase knee and LE strength to tolerate walking. Prior Functional Status Baseline Function- ADL's Modified Independent Baseline Function- Mobility Modified Independent Baseline Function- Gait community ambulation without device. Current Functional Impairments (Reported) Functional Limitations- ADL's modified indep. Functional Limitations- Mobility/Gait Indep community gait 2 days per week, with increased pain and fatigue. PT-OP-C Subjective Start: 09/08/17 10:49 Freq: Status: Active Protocol: Document 10/11/17 11:07 LRN (Rec: 10/11/17 12:12 LRN [id number]) OP-PT Subjective Patient Comments Patient Comments After last treatment the US didn't help. Saw Chiropractor yesterday, didn't help with pain during sleeping and with arm movement. PT-OP-F Manual Assessment Start: 09/08/17 10:49 Freq: Status: Active Protocol: Document 09/08/17 10:30 RCC (Rec: 09/08/17 13:39 RCC [email or web address]) Manual Assessments Soft Tissue Assessment Soft Tissue Mobility Assessment TTP: L subacromial bursa, anterior and medial deltoids, biceps long head, infra and supraspinatus. PT-OP-G Mobility & Gait Start: 09/08/17 10:49 Freq: Status: Active Protocol: Document 09/08/17 10:30 RCC (Rec: 09/08/17 13:39 RCC [email or web address]) OP Gait Assessment Comments Gait Comments Mildly antalgic, increased lateral sway, decreased step length on the L. PT-OP-H Neuro Start: 09/08/17 10:49 Freq: Status: Active Protocol: Document 09/08/17 10:30 RCC (Rec: 09/08/17 13:39 RCC [email or web address]) Sensation Evaluation Comments Summary Comments Impaired sensation B toes, intact plantar and dorsal surface of feet. Deep Tendon Reflex & Clonus Assessment Deep Tendon Reflex Bilateral Achilles Deep Tendon Reflex 1+ Diminished Bilateral Patellar Deep Tendon Reflex 1+ Diminished Ankle Clonus Bilateral Clonus Assessment Absent PT-OP-K Range of Motion Start: 09/08/17 10:49 Freq: Status: Active Protocol: Document 10/11/17 11:07 LRN (Rec: 10/11/17 16:56 LRN [id number]) Shoulder Goniometric Range of Motion Shoulder Measured in Degrees Right Active Testing Position Supine Flexion 150 Abduction 110 External Rotation at 90 degrees 90 Abduction Left Active Testing Position Sitting Flexion 145 Abduction 55 PT-OP-L Special Tests Start: 09/08/17 10:49 Freq: Status: Active Protocol: Document 09/08/17 10:30 RCC (Rec: 09/08/17 14:52 RCC [email or web address]) Special Tests Cervical Spine Special Tests Spurling's Test Test Results Negative Shoulder Special Tests Lift-Off Rotator Cuff Test Results negative B Empty Can Test Results positive L, negative R AC Joint Compression Test Results positive L, negative R Anderson Cole Impingement Test Results positive L, negative R Load and Shift Test Results negative B Speed's Biceps Test Results negative B Apprehension Test Test Results negative B Knee Special Tests Eccentric step down test Test Results positive for pain on the L Comments 6 step Varus- 25 Degrees Test Results negative B Varus- 0 Degrees Test Results negative B Valgus- 25 Degrees Test Results negative B Valgus- 0 Degrees Test Results negative B PT-OP-M Strength Start: 09/08/17 10:49 Freq: Status: Active Protocol: Document 10/11/17 11:07 LRN (Rec: 10/11/17 16:56 LRN [id number]) Shoulder Strength Shoulder Manual Muscle Testing Right Flexion 5 Normal Abduction (C5) 2 Poor External Rotation 4 Good Internal Rotation 5 Normal Left Flexion 4 Good Abduction (C5) 3 Fair External Rotation 4+ Good+ Internal Rotation 5 Normal Elbow/Forearm Strength Elbow and Forearm Manual Muscle Testing Right Flexion (C6) 5 Normal Extension (C7) 5 Normal Left Flexion (C6) 5 Normal Extension (C7) 5 Normal Hip Strength Hip Manual Muscle Testing Right Flexion (L2) 5 Normal External Rotation 5 Normal Internal Rotation 5 Normal Left Flexion (L2) 4 Good External Rotation 5 Normal Internal Rotation 5 Normal Knee Strength Knee Manual Muscle Testing Right Flexion (S2) 5 Normal Extension (L3) 5 Normal Left Flexion (S2) 5 Normal Extension (L3) 5 Normal PT-OP-Q Treatments Start: 09/08/17 10:49 Freq: Status: Active Protocol: Document 10/11/17 11:07 LRN (Rec: 10/11/17 12:12 LRN [id number]) Cardio Equipment Upper Body Ergometer (UBE) Duration (Minutes) 8 RPM 60 Seat Position 16 Height 2.5 Other Fwd. Working at very slow rpm Therapeutic Exercises Sitting Exercises 3 Sitting Exercise Name Shoulder AB 0-45 deg's Side left Reps/Minutes 10x2 2 Sitting Exercise Name Shoulder Isometric AB Side left Comments Arm at ~45 deg's AB Standing Exercises 3 Standing Exercise Name scapular retraction/shoulder ext Side bilateral Equipment Used L1 Reps/Minutes 15x2 Comments tactile cuing 2 Standing Exercise Name Scapular depression Side bilateral Resistance L2 Equipment Used T-Band Reps/Minutes 10x3 Comments Extra time taken for training 1 Standing Exercise Name shoulder ER/IR Side bilateral Resistance L1 Light resistance Equipment Used TBand Reps/Minutes 15x Comments comfortable range (L 15 deg's, R 75 deg's) PT-OP-R Modalities Start: 09/08/17 10:49 Freq: Status: Active Protocol: Document 10/11/17 11:07 LRN (Rec: 10/11/17 12:12 LRN [id number]) Hot Pack/Cold Pack Treatment Cold Pack Location L Shoulder Patient Position Sitting Treatment Duration (minutes) 10 PT-OP-T Assessment and Plan Start: 09/08/17 10:49 Freq: Status: Active Protocol: Document 10/11/17 11:07 LRN (Rec: 10/11/17 12:12 LRN [id number]) Physical Therapy Assessment Rehab Potential Rehabilitation Potential Fair Impairments Impairments Activity Tolerance Functional Activities Gait Pain ROM Soft Tissue Mobility Strength Goals Five Impairment LE strength Assisted Goal (LTG) knee flexion and extension, hip flexion, ER and IR to 4+/5 or greater prior to d/c. LTG Duration GOAL MET Four Impairment UE weakness Bolt Loader Goal (LTG) Shoulder flexion, elbow flexion and extension at least 4+/5, and shoulder abduction, ER, IR 5/5 with manual muscle testing. LTG Duration 8 weeks Three Impairment Impaired gait tolerance Short Term Goal (STG) Pt will be compliant with a walking program 3 days per week for 20 mins. Assisted Goal (LTG) Pt will be compliant with a walking program, 5 days per week for 30 mins. LTG Duration 8 weeks Two Impairment L shoulder ROM Assisted Goal (LTG) L shoulder flexion and abduction to 150 deg, ER to 70 deg. prior to d/c for functional reaching overhead. LTG Duration 8 weeks One Impairment L shoulder pain 9/10 Short Term Goal (STG) 6/10 or less rated L shoulder pain STG Duration GOAL MET (09/27/17: Pain 5/10 at rest) Bolt Loader Goal (LTG) 4/10 or less rated L shoulder pain LTG Duration 8 weeks Progress Towards Goals Progress Comments Not able to progress walking due to swelling in the feet. Pt LE strength goals met. Shoulder goals are slow to progress due to ongoing shoulder pain with ROM and strengthening. Assessment Summary Assessment Pt shows improvement in her LE 's and is experiencing less pain. She has not been able to advance her walking goal due to swelling in her feet, but she feels if not for her feet she would be able to increase her walking to 20 minutes. She continues to have movement limiting L shoulder pain; therefore progress has been very slow. She has most recently tolerated mild resistive strengthening with her shoulder ER's, but forward flexion and abduction strengthening is limited by pain. The pt might be able to improve function is she is able to progressively continue strengthening her rotator cuff. Physical Therapy Plan Frequency and Duration Frequency of Treatment 2x/Week Duration of Treatment 12 weeks Plan of Care Start Date 09/08/17 Plan of Care End Date 12/01/17 Next Visit Focus/Plan Next Note Type Treatment Note Next Visit Plan The pt's rehab program plan is for 2 more months, but if she is not able to improve her strength and mobility within the next 4-6 weeks she will be referred back to your office for further assessment, unless the pt chooses to return sooner.
--- NOTE | 2017-10-13 11:15 | PT.OTN ---
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 Pt notes that she had PT prior for L shoulder with some results, but now is painful when doing her exercises. She sleeps in a upright chair with an ice pack on the L shoulder due to having pain lying down in bed, normally sleeping 2-3 hrs a night. Pt notes that this sleeping position increases her LE swelling. She does not wear compression stockings because they are expensive and Medicare does not cover them. She is waiting on new orthotics to get new shoes. She has to support her L arm most of the time due to pain is she lets it hang. She had an injection in the shoulder which worked for 4 days, and effects wore off before she even had PT last time around. Pt takes Tylenol for pain, and ice helps sometimes. She reports that her orthopedic surgeon suggested that she not do surgery on her shoulder at this point. Pt is undergoing obesity counseling, and is referred for mobility and physical activity with a goal of weight loss, as well as chronic knee and L shoulder pain. Prior Treatments and Tests MRI L shoulder 04/21/2017: Moderate AC joint degeneration , no nearby rotator cuff tears . Irregular globular signal within the superior labrum suggests superior labral tear (SLAP type I or II pathology). No para labral cyst formation . Treatment Goals Patient/Caregiver Goals 1: decrease shoulder pain, 2: increase knee and LE strength to tolerate walking. Prior Functional Status Baseline Function- ADL's Modified Independent Baseline Function- Mobility Modified Independent Baseline Function- Gait community ambulation without device. Current Functional Impairments (Reported) Functional Limitations- ADL's modified indep. Functional Limitations- Mobility/Gait Indep community gait 2 days per week, with increased pain and fatigue. PT-OP-C Subjective Start: 09/08/17 10:49 Freq: Status: Active Protocol: Document 10/13/17 11:15 RCC (Rec: 10/13/17 12:54 RCC [email or web address]) OP-PT Subjective Patient Comments Patient Comments Pt walked ~1.1 miles yesterday to the library, with a stop inbetween to go to her chiropractor visit. Her L shoulder feels about the same. PT-OP-F Manual Assessment Start: 09/08/17 10:49 Freq: Status: Active Protocol: Document 09/08/17 10:30 RCC (Rec: 09/08/17 13:39 RCC [email or web address]) Manual Assessments Soft Tissue Assessment Soft Tissue Mobility Assessment TTP: L subacromial bursa, anterior and medial deltoids, biceps long head, infra and supraspinatus. PT-OP-G Mobility & Gait Start: 09/08/17 10:49 Freq: Status: Active Protocol: Document 09/08/17 10:30 RCC (Rec: 09/08/17 13:39 RCC [email or web address]) OP Gait Assessment Comments Gait Comments Mildly antalgic, increased lateral sway, decreased step length on the L. PT-OP-H Neuro Start: 09/08/17 10:49 Freq: Status: Active Protocol: Document 09/08/17 10:30 RCC (Rec: 09/08/17 13:39 RCC [email or web address]) Sensation Evaluation Comments Summary Comments Impaired sensation B toes, intact plantar and dorsal surface of feet. Deep Tendon Reflex & Clonus Assessment Deep Tendon Reflex Bilateral Achilles Deep Tendon Reflex 1+ Diminished Bilateral Patellar Deep Tendon Reflex 1+ Diminished Ankle Clonus Bilateral Clonus Assessment Absent PT-OP-K Range of Motion Start: 09/08/17 10:49 Freq: Status: Active Protocol: Document 10/11/17 11:07 LRN (Rec: 10/11/17 16:56 LRN [id number]) Shoulder Goniometric Range of Motion Shoulder Measured in Degrees Right Active Testing Position Supine Flexion 150 Abduction 110 External Rotation at 90 degrees 90 Abduction Left Active Testing Position Sitting Flexion 145 Abduction 55 PT-OP-L Special Tests Start: 09/08/17 10:49 Freq: Status: Active Protocol: Document 09/08/17 10:30 RCC (Rec: 09/08/17 14:52 RCC [email or web address]) Special Tests Cervical Spine Special Tests Spurling's Test Test Results Negative Shoulder Special Tests Lift-Off Rotator Cuff Test Results negative B Empty Can Test Results positive L, negative R AC Joint Compression Test Results positive L, negative R Anderson Cole Impingement Test Results positive L, negative R Load and Shift Test Results negative B Speed's Biceps Test Results negative B Apprehension Test Test Results negative B Knee Special Tests Eccentric step down test Test Results positive for pain on the L Comments 6 step Varus- 25 Degrees Test Results negative B Varus- 0 Degrees Test Results negative B Valgus- 25 Degrees Test Results negative B Valgus- 0 Degrees Test Results negative B PT-OP-M Strength Start: 09/08/17 10:49 Freq: Status: Active Protocol: Document 10/11/17 11:07 LRN (Rec: 10/11/17 16:56 LRN [id number]) Shoulder Strength Shoulder Manual Muscle Testing Right Flexion 5 Normal Abduction (C5) 2 Poor External Rotation 4 Good Internal Rotation 5 Normal Left Flexion 4 Good Abduction (C5) 3 Fair External Rotation 4+ Good+ Internal Rotation 5 Normal Elbow/Forearm Strength Elbow and Forearm Manual Muscle Testing Right Flexion (C6) 5 Normal Extension (C7) 5 Normal Left Flexion (C6) 5 Normal Extension (C7) 5 Normal Hip Strength Hip Manual Muscle Testing Right Flexion (L2) 5 Normal External Rotation 5 Normal Internal Rotation 5 Normal Left Flexion (L2) 4 Good External Rotation 5 Normal Internal Rotation 5 Normal Knee Strength Knee Manual Muscle Testing Right Flexion (S2) 5 Normal Extension (L3) 5 Normal Left Flexion (S2) 5 Normal Extension (L3) 5 Normal PT-OP-Q Treatments Start: 09/08/17 10:49 Freq: Status: Active Protocol: Document 10/13/17 11:15 RCC (Rec: 10/13/17 12:54 RCC [email or web address]) Cardio Equipment Upper Body Ergometer (UBE) Duration (Minutes) 6 RPM 60 Seat Position 16 Height 2.5 Other Fwd 4 min, backward 2 min Therapeutic Exercises Sitting Exercises 4 Sitting Exercise Name Shoulder conor- abduction, flexion Side bilateral Reps/Minutes 10 each 2 Sitting Exercise Name Shoulder Isometric AB Side left Comments Arm at ~45 deg's AB Standing Exercises 5 Standing Exercise Name Codman circles Side left Reps/Minutes 2 min 4 Standing Exercise Name shoulder ER isometric Side left Reps/Minutes 12 Manual Therapy Treatment Soft Tissue Mobilization 4 Body Location L biceps brachii Mobilization Type Strumming Intensity/Depth Superficial Body Position Sitting 3 Body Location L supraspinatus Mobilization Type Strumming Intensity/Depth Superficial Body Position Sitting 2 Body Location L pectorals Mobilization Type Strumming Intensity/Depth Superficial Body Position Sitting Joint Mobilizations [address] joint Direction lateral, upward rotation Grade III Body Position Sitting Reps/Duration 5 min PT-OP-R Modalities Start: 09/08/17 10:49 Freq: Status: Active Protocol: Document 10/13/17 11:15 RCC (Rec: 10/13/17 12:54 [facility] [email or web address]) Hot Pack/Cold Pack Treatment Cold Pack Location L Shoulder Patient Position Sitting Treatment Duration (minutes) 10 PT-OP-T Assessment and Plan Start: 09/08/17 10:49 Freq: Status: Active Protocol: Document 10/13/17 11:15 RCC (Rec: 10/13/17 12:54 [facility] [email or web address]) Physical Therapy Assessment Assessment Summary Assessment Pt appears to be walking more in the community. She is still limited with her L shoulder ROM and weakness, but able to achieve >145 degrees of abduction in the L shoulder with conor's and 170 degrees in flexion. Pt's pain limiting resisted training today, required modifications to perform isometric ER and abduction. Physical Therapy Plan Frequency and Duration Frequency of Treatment 2x/Week Duration of Treatment 12 weeks Plan of Care Start Date 09/08/17 Plan of Care End Date 12/01/17 Next Visit Focus/Plan Next Note Type Treatment Note Next Visit Plan prog. L shoulder ROM and strength as tolerated, ST joint mobilizations (pt cannot tolerate sidelying)
--- NOTE | 2017-10-19 15:15 | PT.OTN ---
Current Diagnoses Type 2 diabetes mellitus without complications (10/19/17) Morbid (severe) obesity due to excess calories (10/19/17) Body mass index (BMI) 50-59.9 , adult (10/19/17) Physical Therapy Treatment Note PT-OP-A Visit Information Start: 09/08/17 10:49 Freq: Status: Active Protocol: Document 10/19/17 15:15 RCC (Rec: 10/19/17 17:40 [facility] [email or web address]) Out-Patient Physical Therapy Visit Information Visit Information Visit Type Progress Note Visit Note KX Visit Start Time 14:30 Visit Stop Time 15:25 Total Visit Minutes 55 Visit Number 12 Number of INDOOR LANDSCAPER/GARDENER Visits 0 Evaluation Information Evaluation Date 09/08/16 PT-OP-B Current Condition Start: 09/08/17 10:49 Freq: Status: Active Protocol: Document 09/08/17 10:30 RCC (Rec: 09/08/17 11:04 RCC [email or web address]) Current Condition History of Current Condition Onset Date years ago Current Complaints L shoulder and impaired ability to walk History of Current Condition Pt is a 71 y/o female presenting to physical therapy with a c/o L shoulder pain, as well as bilateral knee pain and swelling L>R limiting her ability to ambulate long distances. Pt notes that she had PT prior for L shoulder with some results, but now is painful when doing her exercises. She sleeps in a upright chair with an ice pack on the L shoulder due to having pain lying down in bed, normally sleeping 2-3 hrs a night. Pt notes that this sleeping position increases her LE swelling. She does not wear compression stockings because they are expensive and Medicare does not cover them. She is waiting on new orthotics to get new shoes. She has to support her L arm most of the time due to pain is she lets it hang. She had an injection in the shoulder which worked for 4 days, and effects wore off before she even had PT last time around. Pt takes Tylenol for pain, and ice helps sometimes. She reports that her orthopedic surgeon suggested that she not do surgery on her shoulder at this point. Pt is undergoing obesity counseling, and is referred for mobility and physical activity with a goal of weight loss, as well as chronic knee and L shoulder pain. Prior Treatments and Tests MRI L shoulder 04/21/2017: Moderate AC joint degeneration , no nearby rotator cuff tears . Irregular globular signal within the superior labrum suggests superior labral tear (SLAP type I or II pathology). No para labral cyst formation . Treatment Goals Patient/Caregiver Goals 1: decrease shoulder pain, 2: increase knee and LE strength to tolerate walking. Prior Functional Status Baseline Function- ADL's Modified Independent Baseline Function- Mobility Modified Independent Baseline Function- Gait community ambulation without device. Current Functional Impairments (Reported) Functional Limitations- ADL's modified indep. Functional Limitations- Mobility/Gait Indep community gait 2 days per week, with increased pain and fatigue. PT-OP-C Subjective Start: 09/08/17 10:49 Freq: Status: Active Protocol: Document 10/19/17 15:15 RCC (Rec: 10/19/17 17:40 RCC [email or web address]) OP-PT Subjective Patient Comments Patient Comments Pt was sore after last session , but no increase in pain. She layed down for 45 min before her shoulder pain increased and she had to go the recliner to sleep. PT-OP-F Manual Assessment Start: 09/08/17 10:49 Freq: Status: Active Protocol: Document 10/19/17 15:15 RCC (Rec: 10/19/17 17:40 RCC [email or web address]) Manual Assessments Joint Mobility Assessment Joint Mobility Assessment hypomobile: GH and ST joint on the L. PT-OP-G Mobility & Gait Start: 09/08/17 10:49 Freq: Status: Active Protocol: Document 09/08/17 10:30 RCC (Rec: 09/08/17 13:39 RCC [email or web address]) OP Gait Assessment Comments Gait Comments Mildly antalgic, increased lateral sway, decreased step length on the L. PT-OP-H Neuro Start: 09/08/17 10:49 Freq: Status: Active Protocol: Document 09/08/17 10:30 RCC (Rec: 09/08/17 13:39 RCC [email or web address]) Sensation Evaluation Comments Summary Comments Impaired sensation B toes, intact plantar and dorsal surface of feet. Deep Tendon Reflex & Clonus Assessment Deep Tendon Reflex Bilateral Achilles Deep Tendon Reflex 1+ Diminished Bilateral Patellar Deep Tendon Reflex 1+ Diminished Ankle Clonus Bilateral Clonus Assessment Absent PT-OP-K Range of Motion Start: 09/08/17 10:49 Freq: Status: Active Protocol: Document 10/11/17 11:07 LRN (Rec: 10/11/17 16:56 LRN [id number]) Shoulder Goniometric Range of Motion Shoulder Measured in Degrees Right Active Testing Position Supine Flexion 150 Abduction 110 External Rotation at 90 degrees 90 Abduction Left Active Testing Position Sitting Flexion 145 Abduction 55 PT-OP-L Special Tests Start: 09/08/17 10:49 Freq: Status: Active Protocol: Document 09/08/17 10:30 RCC (Rec: 09/08/17 14:52 RCC [email or web address]) Special Tests Cervical Spine Special Tests Spurling's Test Test Results Negative Shoulder Special Tests Lift-Off Rotator Cuff Test Results negative B Empty Can Test Results positive L, negative R AC Joint Compression Test Results positive L, negative R Anderson Cole Impingement Test Results positive L, negative R Load and Shift Test Results negative B Speed's Biceps Test Results negative B Apprehension Test Test Results negative B Knee Special Tests Eccentric step down test Test Results positive for pain on the L Comments 6 step Varus- 25 Degrees Test Results negative B Varus- 0 Degrees Test Results negative B Valgus- 25 Degrees Test Results negative B Valgus- 0 Degrees Test Results negative B PT-OP-M Strength Start: 09/08/17 10:49 Freq: Status: Active Protocol: Document 10/11/17 11:07 LRN (Rec: 10/11/17 16:56 LRN [id number]) Shoulder Strength Shoulder Manual Muscle Testing Right Flexion 5 Normal Abduction (C5) 2 Poor External Rotation 4 Good Internal Rotation 5 Normal Left Flexion 4 Good Abduction (C5) 3 Fair External Rotation 4+ Good+ Internal Rotation 5 Normal Elbow/Forearm Strength Elbow and Forearm Manual Muscle Testing Right Flexion (C6) 5 Normal Extension (C7) 5 Normal Left Flexion (C6) 5 Normal Extension (C7) 5 Normal Hip Strength Hip Manual Muscle Testing Right Flexion (L2) 5 Normal External Rotation 5 Normal Internal Rotation 5 Normal Left Flexion (L2) 4 Good External Rotation 5 Normal Internal Rotation 5 Normal Knee Strength Knee Manual Muscle Testing Right Flexion (S2) 5 Normal Extension (L3) 5 Normal Left Flexion (S2) 5 Normal Extension (L3) 5 Normal PT-OP-Q Treatments Start: 09/08/17 10:49 Freq: Status: Active Protocol: Document 10/19/17 15:15 RCC (Rec: 10/19/17 17:40 RCC [email or web address]) Cardio Equipment Upper Body Ergometer (UBE) Duration (Minutes) 6 RPM 60 Seat Position 16 Height 2.5 Other Fwd 4 min, backward 2 min Therapeutic Exercises Sitting Exercises 4 Sitting Exercise Name Shoulder conor- abduction, flexion Side bilateral Reps/Minutes 10 each Standing Exercises 6 Standing Exercise Name scapular protraction Side bilateral Reps/Minutes 2x10 Comments in wall push-up position 3 Standing Exercise Name scapular retraction/shoulder ext Side bilateral Equipment Used L2 Reps/Minutes 15x2 Comments tactile cuing 2 Standing Exercise Name Scapular depression Side bilateral Resistance L2 Equipment Used T-Band Reps/Minutes 15x2 Manual Therapy Treatment Soft Tissue Mobilization 4 Body Location L biceps brachii Mobilization Type Strumming Intensity/Depth Superficial Body Position Sitting 3 Body Location L supraspinatus Mobilization Type Strumming Intensity/Depth Superficial Body Position Sitting 2 Body Location L pectorals Mobilization Type Strumming Intensity/Depth Superficial Body Position Sitting Joint Mobilizations 2 Joint GH joint Direction inferior, posterior Grade III Body Position Sitting Reps/Duration 6 min Comments L arm on adjustable table ( table on wheels) [address] joint Direction lateral, upward rotation Grade III Body Position Sitting Reps/Duration 6 min PT-OP-R Modalities Start: 09/08/17 10:49 Freq: Status: Active Protocol: Document 10/19/17 15:15 RCC (Rec: 10/19/17 17:40 RCC [email or web address]) Hot Pack/Cold Pack Treatment Cold Pack Location L Shoulder Patient Position Sitting Treatment Duration (minutes) 10 PT-OP-T Assessment and Plan Start: 09/08/17 10:49 Freq: Status: Active Protocol: Document 10/19/17 15:15 RCC (Rec: 10/19/17 17:40 RCC [email or web address]) Physical Therapy Assessment Assessment Summary Assessment Pt able to relax LUE with arm resting on adjustable table ( table on wheels) to allow for GH joint mobilization (does not tolerate supine position well). Pt's GH and ST joint hypomobility and impaired scapulohumeral rhythm and impaired strength of the L shoulder girdle likely cause for shoulder pain and impaired ROM and function. Physical Therapy Plan Frequency and Duration Frequency of Treatment 2x/Week Duration of Treatment 12 weeks Plan of Care Start Date 09/08/17 Plan of Care End Date 12/01/17 Next Visit Focus/Plan Next Note Type Treatment Note Next Visit Plan ST joint mobilizations, strengthen shoulder girdle as tolerated, general progression of activity level/HEP.
--- NOTE | 2017-10-26 12:53 | PT.OTN ---
Current Diagnoses Type 2 diabetes mellitus without complications (10/26/17) Morbid (severe) obesity due to excess calories (10/26/17) Body mass index (BMI) 50-59.9 , adult (10/26/17) Physical Therapy Treatment Note PT-OP-A Visit Information Start: 09/08/17 10:49 Freq: Status: Active Protocol: Document 10/26/17 12:53 RCC (Rec: 10/26/17 17:59 RCC [email or web address]) Out-Patient Physical Therapy Visit Information Visit Information Visit Type Treatment Note Visit Note KX Visit Start Time 12:00 Visit Stop Time 12:53 Total Visit Minutes 53 Visit Number 13 Number of ROLL FORMING MACHINE OPERATOR Visits 0 Evaluation Information Evaluation Date 09/08/16 PT-OP-B Current Condition Start: 09/08/17 10:49 Freq: Status: Active Protocol: Document 09/08/17 10:30 RCC (Rec: 09/08/17 11:04 RCC [email or web address]) Current Condition History of Current Condition Onset Date years ago Current Complaints L shoulder and impaired ability to walk History of Current Condition Pt is a 71 y/o female presenting to physical therapy with a c/o L shoulder pain, as well as bilateral knee pain and swelling L>R limiting her ability to ambulate long distances. Pt notes that she had PT prior for L shoulder with some results, but now is painful when doing her exercises. She sleeps in a upright chair with an ice pack on the L shoulder due to having pain lying down in bed, normally sleeping 2-3 hrs a night. Pt notes that this sleeping position increases her LE swelling. She does not wear compression stockings because they are expensive and Medicare does not cover them. She is waiting on new orthotics to get new shoes. She has to support her L arm most of the time due to pain is she lets it hang. She had an injection in the shoulder which worked for 4 days, and effects wore off before she even had PT last time around. Pt takes Tylenol for pain, and ice helps sometimes. She reports that her orthopedic surgeon suggested that she not do surgery on her shoulder at this point. Pt is undergoing obesity counseling, and is referred for mobility and physical activity with a goal of weight loss, as well as chronic knee and L shoulder pain. Prior Treatments and Tests MRI L shoulder 04/21/2017: Moderate AC joint degeneration , no nearby rotator cuff tears . Irregular globular signal within the superior labrum suggests superior labral tear (SLAP type I or II pathology). No para labral cyst formation . Treatment Goals Patient/Caregiver Goals 1: decrease shoulder pain, 2: increase knee and LE strength to tolerate walking. Prior Functional Status Baseline Function- ADL's Modified Independent Baseline Function- Mobility Modified Independent Baseline Function- Gait community ambulation without device. Current Functional Impairments (Reported) Functional Limitations- ADL's modified indep. Functional Limitations- Mobility/Gait Indep community gait 2 days per week, with increased pain and fatigue. PT-OP-C Subjective Start: 09/08/17 10:49 Freq: Status: Active Protocol: Document 10/26/17 12:53 RCC (Rec: 10/26/17 17:59 RCC [email or web address]) OP-PT Subjective Patient Comments Patient Comments Pt is still having L shoulder pain she feels is in her anterior shoulder musculature. PT-OP-F Manual Assessment Start: 09/08/17 10:49 Freq: Status: Active Protocol: Document 10/19/17 15:15 RCC (Rec: 10/19/17 17:40 RCC [email or web address]) Manual Assessments Joint Mobility Assessment Joint Mobility Assessment hypomobile: GH and ST joint on the L. PT-OP-G Mobility & Gait Start: 09/08/17 10:49 Freq: Status: Active Protocol: Document 09/08/17 10:30 RCC (Rec: 09/08/17 13:39 RCC [email or web address]) OP Gait Assessment Comments Gait Comments Mildly antalgic, increased lateral sway, decreased step length on the L. PT-OP-H Neuro Start: 09/08/17 10:49 Freq: Status: Active Protocol: Document 09/08/17 10:30 RCC (Rec: 09/08/17 13:39 RCC [email or web address]) Sensation Evaluation Comments Summary Comments Impaired sensation B toes, intact plantar and dorsal surface of feet. Deep Tendon Reflex & Clonus Assessment Deep Tendon Reflex Bilateral Achilles Deep Tendon Reflex 1+ Diminished Bilateral Patellar Deep Tendon Reflex 1+ Diminished Ankle Clonus Bilateral Clonus Assessment Absent PT-OP-K Range of Motion Start: 09/08/17 10:49 Freq: Status: Active Protocol: Document 10/11/17 11:07 LRN (Rec: 10/11/17 16:56 LRN [id number]) Shoulder Goniometric Range of Motion Shoulder Measured in Degrees Right Active Testing Position Supine Flexion 150 Abduction 110 External Rotation at 90 degrees 90 Abduction Left Active Testing Position Sitting Flexion 145 Abduction 55 PT-OP-L Special Tests Start: 09/08/17 10:49 Freq: Status: Active Protocol: Document 09/08/17 10:30 RCC (Rec: 09/08/17 14:52 RCC [email or web address]) Special Tests Cervical Spine Special Tests Spurling's Test Test Results Negative Shoulder Special Tests Lift-Off Rotator Cuff Test Results negative B Empty Can Test Results positive L, negative R AC Joint Compression Test Results positive L, negative R Anderson Cole Impingement Test Results positive L, negative R Load and Shift Test Results negative B Speed's Biceps Test Results negative B Apprehension Test Test Results negative B Knee Special Tests Eccentric step down test Test Results positive for pain on the L Comments 6 step Varus- 25 Degrees Test Results negative B Varus- 0 Degrees Test Results negative B Valgus- 25 Degrees Test Results negative B Valgus- 0 Degrees Test Results negative B PT-OP-M Strength Start: 09/08/17 10:49 Freq: Status: Active Protocol: Document 10/11/17 11:07 LRN (Rec: 10/11/17 16:56 LRN [id number]) Shoulder Strength Shoulder Manual Muscle Testing Right Flexion 5 Normal Abduction (C5) 2 Poor External Rotation 4 Good Internal Rotation 5 Normal Left Flexion 4 Good Abduction (C5) 3 Fair External Rotation 4+ Good+ Internal Rotation 5 Normal Elbow/Forearm Strength Elbow and Forearm Manual Muscle Testing Right Flexion (C6) 5 Normal Extension (C7) 5 Normal Left Flexion (C6) 5 Normal Extension (C7) 5 Normal Hip Strength Hip Manual Muscle Testing Right Flexion (L2) 5 Normal External Rotation 5 Normal Internal Rotation 5 Normal Left Flexion (L2) 4 Good External Rotation 5 Normal Internal Rotation 5 Normal Knee Strength Knee Manual Muscle Testing Right Flexion (S2) 5 Normal Extension (L3) 5 Normal Left Flexion (S2) 5 Normal Extension (L3) 5 Normal PT-OP-Q Treatments Start: 09/08/17 10:49 Freq: Status: Active Protocol: Document 10/26/17 12:53 RCC (Rec: 10/26/17 17:59 RCC [email or web address]) Cardio Equipment Upper Body Ergometer (UBE) Duration (Minutes) 6 RPM 60 Seat Position 16 Height 2.5 Other Fwd 3 min, backward 3 min Therapeutic Exercises Sitting Exercises 4 Sitting Exercise Name Shoulder conor- abduction, flexion Side bilateral Reps/Minutes 10 each Standing Exercises 7 Standing Exercise Name Pectoralis and biceps stretch on doorway Side bilateral 5 Standing Exercise Name Codman circles Side left Reps/Minutes 4 min Manual Therapy Treatment Soft Tissue Mobilization 4 Body Location L biceps brachii Mobilization Type Strumming Intensity/Depth Superficial Body Position Sitting 3 Body Location L supraspinatus Mobilization Type Strumming Intensity/Depth Superficial Body Position Sitting 2 Body Location L pectorals Mobilization Type Strumming Intensity/Depth Superficial Body Position Sitting Joint Mobilizations 2 Joint GH joint Direction inferior, posterior Grade III Body Position Sitting Reps/Duration 6 min Comments L arm on adjustable table ( table on wheels) [address] joint Direction lateral, upward rotation Grade III Body Position Sitting Reps/Duration 5 min PT-OP-R Modalities Start: 09/08/17 10:49 Freq: Status: Active Protocol: Document 10/26/17 12:53 [facility] (Rec: 10/26/17 17:59 [facility] [email or web address]) Hot Pack/Cold Pack Treatment Cold Pack Location L Shoulder Patient Position Sitting Treatment Duration (minutes) 10 Patient Tolerance Good Comments wrapped for compression PT-OP-T Assessment and Plan Start: 09/08/17 10:49 Freq: Status: Active Protocol: Document 10/26/17 12:53 RCC (Rec: 10/26/17 17:59 [facility] [email or web address]) Physical Therapy Assessment Assessment Summary Assessment Pt tolerated shoulder flexion well with conor's but still limited in shoulder abduction (left) due to pain with lowering the LUE. She continues to have impaired joint mobility and difficulty with manual mobilization of GH and ST joint due to intolerance to supine position due to shoulder pain. Physical Therapy Plan Frequency and Duration Frequency of Treatment 2x/Week Duration of Treatment 12 weeks Plan of Care Start Date 09/08/17 Plan of Care End Date 12/01/17 Next Visit Focus/Plan Next Note Type Treatment Note Next Visit Plan review and progress HEP for shoulder ROM and strengthening .
--- NOTE | 2017-11-02 14:30 | PT.OTN ---
Current Diagnoses Type 2 diabetes mellitus without complications (11/02/17) Morbid (severe) obesity due to excess calories (11/02/17) Body mass index (BMI) 50-59.9 , adult (11/02/17) Physical Therapy Treatment Note PT-OP-A Visit Information Start: 09/08/17 10:49 Freq: Status: Active Protocol: Document 11/02/17 14:30 RCC (Rec: 11/02/17 17:30 [facility] [email or web address]) Out-Patient Physical Therapy Visit Information Visit Information Visit Type Treatment Note Visit Note KX Visit Start Time 13:45 Visit Stop Time 14:35 Total Visit Minutes 50 Visit Number 14 Number of POT WASHER Visits 0 Evaluation Information Evaluation Date 09/08/16 PT-OP-B Current Condition Start: 09/08/17 10:49 Freq: Status: Active Protocol: Document 09/08/17 10:30 RCC (Rec: 09/08/17 11:04 RCC [email or web address]) Current Condition History of Current Condition Onset Date years ago Current Complaints L shoulder and impaired ability to walk History of Current Condition Pt is a 71 y/o female presenting to physical therapy with a c/o L shoulder pain, as well as bilateral knee pain and swelling L>R limiting her ability to ambulate long distances. Pt notes that she had PT prior for L shoulder with some results, but now is painful when doing her exercises. She sleeps in a upright chair with an ice pack on the L shoulder due to having pain lying down in bed, normally sleeping 2-3 hrs a night. Pt notes that this sleeping position increases her LE swelling. She does not wear compression stockings because they are expensive and Medicare does not cover them. She is waiting on new orthotics to get new shoes. She has to support her L arm most of the time due to pain is she lets it hang. She had an injection in the shoulder which worked for 4 days, and effects wore off before she even had PT last time around. Pt takes Tylenol for pain, and ice helps sometimes. She reports that her orthopedic surgeon suggested that she not do surgery on her shoulder at this point. Pt is undergoing obesity counseling, and is referred for mobility and physical activity with a goal of weight loss, as well as chronic knee and L shoulder pain. Prior Treatments and Tests MRI L shoulder 04/21/2017: Moderate AC joint degeneration , no nearby rotator cuff tears . Irregular globular signal within the superior labrum suggests superior labral tear (SLAP type I or II pathology). No para labral cyst formation . Treatment Goals Patient/Caregiver Goals 1: decrease shoulder pain, 2: increase knee and LE strength to tolerate walking. Prior Functional Status Baseline Function- ADL's Modified Independent Baseline Function- Mobility Modified Independent Baseline Function- Gait community ambulation without device. Current Functional Impairments (Reported) Functional Limitations- ADL's modified indep. Functional Limitations- Mobility/Gait Indep community gait 2 days per week, with increased pain and fatigue. PT-OP-C Subjective Start: 09/08/17 10:49 Freq: Status: Active Protocol: Document 11/02/17 14:30 RCC (Rec: 11/02/17 17:30 [facility] [email or web address]) OP-PT Subjective Patient Comments Patient Comments Pt states that she is able to do some light motion with her L shoulder, but overall is still bothering her with most activities. She is interested in aquatic therapy. PT-OP-F Manual Assessment Start: 09/08/17 10:49 Freq: Status: Active Protocol: Document 10/19/17 15:15 RCC (Rec: 10/19/17 17:40 [facility] [email or web address]) Manual Assessments Joint Mobility Assessment Joint Mobility Assessment hypomobile: GH and ST joint on the L. PT-OP-G Mobility & Gait Start: 09/08/17 10:49 Freq: Status: Active Protocol: Document 09/08/17 10:30 RCC (Rec: 09/08/17 13:39 [facility] [email or web address]) OP Gait Assessment Comments Gait Comments Mildly antalgic, increased lateral sway, decreased step length on the L. PT-OP-H Neuro Start: 09/08/17 10:49 Freq: Status: Active Protocol: Document 09/08/17 10:30 RCC (Rec: 09/08/17 13:39 [facility] [email or web address]) Sensation Evaluation Comments Summary Comments Impaired sensation B toes, intact plantar and dorsal surface of feet. Deep Tendon Reflex & Clonus Assessment Deep Tendon Reflex Bilateral Achilles Deep Tendon Reflex 1+ Diminished Bilateral Patellar Deep Tendon Reflex 1+ Diminished Ankle Clonus Bilateral Clonus Assessment Absent PT-OP-K Range of Motion Start: 09/08/17 10:49 Freq: Status: Active Protocol: Document 10/11/17 11:07 LRN (Rec: 10/11/17 16:56 LRN [id number]) Shoulder Goniometric Range of Motion Shoulder Measured in Degrees Right Active Testing Position Supine Flexion 150 Abduction 110 External Rotation at 90 degrees 90 Abduction Left Active Testing Position Sitting Flexion 145 Abduction 55 PT-OP-L Special Tests Start: 09/08/17 10:49 Freq: Status: Active Protocol: Document 09/08/17 10:30 RCC (Rec: 09/08/17 14:52 [facility] [email or web address]) Special Tests Cervical Spine Special Tests Spurling's Test Test Results Negative Shoulder Special Tests Lift-Off Rotator Cuff Test Results negative B Empty Can Test Results positive L, negative R AC Joint Compression Test Results positive L, negative R Anderson Cole Impingement Test Results positive L, negative R Load and Shift Test Results negative B Speed's Biceps Test Results negative B Apprehension Test Test Results negative B Knee Special Tests Eccentric step down test Test Results positive for pain on the L Comments 6 step Varus- 25 Degrees Test Results negative B Varus- 0 Degrees Test Results negative B Valgus- 25 Degrees Test Results negative B Valgus- 0 Degrees Test Results negative B PT-OP-M Strength Start: 09/08/17 10:49 Freq: Status: Active Protocol: Document 10/11/17 11:07 LRN (Rec: 10/11/17 16:56 LRN [id number]) Shoulder Strength Shoulder Manual Muscle Testing Right Flexion 5 Normal Abduction (C5) 2 Poor External Rotation 4 Good Internal Rotation 5 Normal Left Flexion 4 Good Abduction (C5) 3 Fair External Rotation 4+ Good+ Internal Rotation 5 Normal Elbow/Forearm Strength Elbow and Forearm Manual Muscle Testing Right Flexion (C6) 5 Normal Extension (C7) 5 Normal Left Flexion (C6) 5 Normal Extension (C7) 5 Normal Hip Strength Hip Manual Muscle Testing Right Flexion (L2) 5 Normal External Rotation 5 Normal Internal Rotation 5 Normal Left Flexion (L2) 4 Good External Rotation 5 Normal Internal Rotation 5 Normal Knee Strength Knee Manual Muscle Testing Right Flexion (S2) 5 Normal Extension (L3) 5 Normal Left Flexion (S2) 5 Normal Extension (L3) 5 Normal PT-OP-Q Treatments Start: 09/08/17 10:49 Freq: Status: Active Protocol: Document 11/02/17 14:30 RCC (Rec: 11/02/17 17:30 [facility] [email or web address]) Therapeutic Exercises Sitting Exercises 4 Sitting Exercise Name Shoulder conor- abduction, flexion Side bilateral Reps/Minutes 10 each Standing Exercises 8 Standing Exercise Name shoulder flexion and scaption Side left Resistance 0 Reps/Minutes 1x8 7 Standing Exercise Name Pectoralis and biceps stretch on doorway Side bilateral 6 Standing Exercise Name scapular protraction Side bilateral Reps/Minutes 2x10 Comments in wall push-up position 3 Standing Exercise Name scapular retraction/shoulder ext Side bilateral Equipment Used L2 Reps/Minutes 15x2 Comments tactile cuing Manual Therapy Treatment Soft Tissue Mobilization 4 Body Location L biceps brachii Mobilization Type Strumming Intensity/Depth Superficial Body Position Sitting 2 Body Location L pectorals Mobilization Type Strumming Intensity/Depth Superficial Body Position Sitting Joint Mobilizations [address] joint Direction lateral, upward rotation Grade III Body Position Sitting Reps/Duration 6 min PT-OP-R Modalities Start: 09/08/17 10:49 Freq: Status: Active Protocol: Document 11/02/17 14:30 RCC (Rec: 11/02/17 17:30 [facility] [email or web address]) Hot Pack/Cold Pack Treatment Cold Pack Location L Shoulder Patient Position Sitting Treatment Duration (minutes) 10 Patient Tolerance Good Comments wrapped for compression PT-OP-T Assessment and Plan Start: 09/08/17 10:49 Freq: Status: Active Protocol: Document 11/02/17 14:30 RCC (Rec: 11/02/17 17:30 [facility] [email or web address]) Physical Therapy Assessment Assessment Summary Assessment Pt without pain in L shoulder flexion or scaption, but does not tolerate greater resistance (besides gravity). Tactile cuing required for scapular mobility with protraction and retraction. Physical Therapy Plan Frequency and Duration Frequency of Treatment 2x/Week Duration of Treatment 12 weeks Plan of Care Start Date 09/08/17 Plan of Care End Date 12/01/17 Next Visit Focus/Plan Next Note Type Treatment Note Next Visit Plan continue shoulder girdle strengthening.
--- NOTE | 2017-11-09 14:28 | PT.OTN ---
Current Diagnoses Type 2 diabetes mellitus without complications (11/09/17) Morbid (severe) obesity due to excess calories (11/09/17) Body mass index (BMI) 50-59.9 , adult (11/09/17) Physical Therapy Treatment Note PT-OP-A Visit Information Start: 09/08/17 10:49 Freq: Status: Active Protocol: Document 11/09/17 14:28 RCC (Rec: 11/09/17 14:33 [facility] [email or web address]) Out-Patient Physical Therapy Visit Information Visit Information Visit Type Treatment Note Visit Note KX Visit Start Time 13:45 Visit Stop Time 14:35 Total Visit Minutes 50 Visit Number 15 Number of MEDICAL ORDERLY Visits 0 Evaluation Information Evaluation Date 09/08/16 PT-OP-B Current Condition Start: 09/08/17 10:49 Freq: Status: Active Protocol: Document 09/08/17 10:30 RCC (Rec: 09/08/17 11:04 [facility] [email or web address]) Current Condition History of Current Condition Onset Date years ago Current Complaints L shoulder and impaired ability to walk History of Current Condition Pt is a 71 y/o female presenting to physical therapy with a c/o L shoulder pain, as well as bilateral knee pain and swelling L>R limiting her ability to ambulate long distances. Pt notes that she had PT prior for L shoulder with some results, but now is painful when doing her exercises. She sleeps in a upright chair with an ice pack on the L shoulder due to having pain lying down in bed, normally sleeping 2-3 hrs a night. Pt notes that this sleeping position increases her LE swelling. She does not wear compression stockings because they are expensive and Medicare does not cover them. She is waiting on new orthotics to get new shoes. She has to support her L arm most of the time due to pain is she lets it hang. She had an injection in the shoulder which worked for 4 days, and effects wore off before she even had PT last time around. Pt takes Tylenol for pain, and ice helps sometimes. She reports that her orthopedic surgeon suggested that she not do surgery on her shoulder at this point. Pt is undergoing obesity counseling, and is referred for mobility and physical activity with a goal of weight loss, as well as chronic knee and L shoulder pain. Prior Treatments and Tests MRI L shoulder 04/21/2017: Moderate AC joint degeneration , no nearby rotator cuff tears . Irregular globular signal within the superior labrum suggests superior labral tear (SLAP type I or II pathology). No para labral cyst formation . Treatment Goals Patient/Caregiver Goals 1: decrease shoulder pain, 2: increase knee and LE strength to tolerate walking. Prior Functional Status Baseline Function- ADL's Modified Independent Baseline Function- Mobility Modified Independent Baseline Function- Gait community ambulation without device. Current Functional Impairments (Reported) Functional Limitations- ADL's modified indep. Functional Limitations- Mobility/Gait Indep community gait 2 days per week, with increased pain and fatigue. PT-OP-C Subjective Start: 09/08/17 10:49 Freq: Status: Active Protocol: Document 11/09/17 14:28 RCC (Rec: 11/09/17 14:33 [facility] [email or web address]) OP-PT Subjective Patient Comments Patient Comments Pt states that she had increased pain over the weekend in the L shoulder, but feels better this week. PT-OP-F Manual Assessment Start: 09/08/17 10:49 Freq: Status: Active Protocol: Document 10/19/17 15:15 RCC (Rec: 10/19/17 17:40 [facility] [email or web address]) Manual Assessments Joint Mobility Assessment Joint Mobility Assessment hypomobile: GH and ST joint on the L. PT-OP-G Mobility & Gait Start: 09/08/17 10:49 Freq: Status: Active Protocol: Document 09/08/17 10:30 [facility] (Rec: 09/08/17 13:39 [facility] [email or web address]) OP Gait Assessment Comments Gait Comments Mildly antalgic, increased lateral sway, decreased step length on the L. PT-OP-H Neuro Start: 09/08/17 10:49 Freq: Status: Active Protocol: Document 09/08/17 10:30 [facility] (Rec: 09/08/17 13:39 [facility] [email or web address]) Sensation Evaluation Comments Summary Comments Impaired sensation B toes, intact plantar and dorsal surface of feet. Deep Tendon Reflex & Clonus Assessment Deep Tendon Reflex Bilateral Achilles Deep Tendon Reflex 1+ Diminished Bilateral Patellar Deep Tendon Reflex 1+ Diminished Ankle Clonus Bilateral Clonus Assessment Absent PT-OP-K Range of Motion Start: 09/08/17 10:49 Freq: Status: Active Protocol: Document 10/11/17 11:07 LRN (Rec: 10/11/17 16:56 LRN [id number]) Shoulder Goniometric Range of Motion Shoulder Measured in Degrees Right Active Testing Position Supine Flexion 150 Abduction 110 External Rotation at 90 degrees 90 Abduction Left Active Testing Position Sitting Flexion 145 Abduction 55 PT-OP-L Special Tests Start: 09/08/17 10:49 Freq: Status: Active Protocol: Document 09/08/17 10:30 RCC (Rec: 09/08/17 14:52 [facility] [email or web address]) Special Tests Cervical Spine Special Tests Spurling's Test Test Results Negative Shoulder Special Tests Lift-Off Rotator Cuff Test Results negative B Empty Can Test Results positive L, negative R AC Joint Compression Test Results positive L, negative R Anderson Cole Impingement Test Results positive L, negative R Load and Shift Test Results negative B Speed's Biceps Test Results negative B Apprehension Test Test Results negative B Knee Special Tests Eccentric step down test Test Results positive for pain on the L Comments 6 step Varus- 25 Degrees Test Results negative B Varus- 0 Degrees Test Results negative B Valgus- 25 Degrees Test Results negative B Valgus- 0 Degrees Test Results negative B PT-OP-M Strength Start: 09/08/17 10:49 Freq: Status: Active Protocol: Document 10/11/17 11:07 LRN (Rec: 10/11/17 16:56 LRN [id number]) Shoulder Strength Shoulder Manual Muscle Testing Right Flexion 5 Normal Abduction (C5) 2 Poor External Rotation 4 Good Internal Rotation 5 Normal Left Flexion 4 Good Abduction (C5) 3 Fair External Rotation 4+ Good+ Internal Rotation 5 Normal Elbow/Forearm Strength Elbow and Forearm Manual Muscle Testing Right Flexion (C6) 5 Normal Extension (C7) 5 Normal Left Flexion (C6) 5 Normal Extension (C7) 5 Normal Hip Strength Hip Manual Muscle Testing Right Flexion (L2) 5 Normal External Rotation 5 Normal Internal Rotation 5 Normal Left Flexion (L2) 4 Good External Rotation 5 Normal Internal Rotation 5 Normal Knee Strength Knee Manual Muscle Testing Right Flexion (S2) 5 Normal Extension (L3) 5 Normal Left Flexion (S2) 5 Normal Extension (L3) 5 Normal PT-OP-Q Treatments Start: 09/08/17 10:49 Freq: Status: Active Protocol: Document 11/09/17 14:28 RCC (Rec: 11/09/17 14:33 RCC [email or web address]) Therapeutic Exercises Sitting Exercises 4 Sitting Exercise Name Shoulder conor- abduction, flexion Side bilateral Reps/Minutes 10 each Standing Exercises 9 Standing Exercise Name bent over rows and scapular retraction Side left Resistance 0 Reps/Minutes 10 each 8 Standing Exercise Name shoulder flexion and scaption Side left Resistance 0 Reps/Minutes 1x10 3 Standing Exercise Name scapular retraction/shoulder ext Side bilateral Equipment Used L2 Reps/Minutes 15x2 Comments tactile cuing Manual Therapy Treatment Soft Tissue Mobilization 4 Body Location L biceps brachii Mobilization Type Strumming Intensity/Depth Superficial Body Position Sitting 2 Body Location L pectorals Mobilization Type Strumming Intensity/Depth Superficial Body Position Sitting Joint Mobilizations [address] joint Direction lateral, upward rotation Grade III Body Position Sitting Reps/Duration 8 min PT-OP-R Modalities Start: 09/08/17 10:49 Freq: Status: Active Protocol: Document 11/09/17 14:28 RCC (Rec: 11/09/17 14:33 [facility] [email or web address]) Hot Pack/Cold Pack Treatment Cold Pack Location L Shoulder Patient Position Sitting Treatment Duration (minutes) 10 Patient Tolerance Good Comments wrapped for compression PT-OP-T Assessment and Plan Start: 09/08/17 10:49 Freq: Status: Active Protocol: Document 11/09/17 14:28 RCC (Rec: 11/09/17 14:33 [facility] [email or web address]) Physical Therapy Assessment Assessment Summary Assessment Pt tolerated increased reps of shoulder strengthening, less cuing for UT inhibition. She continues to have greater difficulty with abduction motion, less severe pain with ER of the humerus. Physical Therapy Plan Frequency and Duration Frequency of Treatment 2x/Week Duration of Treatment 12 weeks Plan of Care Start Date 09/08/17 Plan of Care End Date 12/01/17 Next Visit Focus/Plan Next Note Type Treatment Note Next Visit Plan kinesiotape L shoulder if not affected by sample tape today, progress scapular strengthening/stability.
--- NOTE | 2017-11-16 14:28 | PT.OTN ---
Current Diagnoses Type 2 diabetes mellitus without complications (11/16/17) Morbid (severe) obesity due to excess calories (11/16/17) Body mass index (BMI) 50-59.9 , adult (11/16/17) Physical Therapy Treatment Note PT-OP-A Visit Information Start: 09/08/17 10:49 Freq: Status: Active Protocol: Document 11/16/17 14:28 RCC (Rec: 11/16/17 14:34 RCC [email or web address]) Out-Patient Physical Therapy Visit Information Visit Information Visit Type Treatment Note Visit Note KX Visit Start Time 13:45 Visit Stop Time 14:34 Total Visit Minutes 49 Visit Number 16 Number of DRAFTING LAYOUT MAN Visits 0 Evaluation Information Evaluation Date 09/08/16 PT-OP-B Current Condition Start: 09/08/17 10:49 Freq: Status: Active Protocol: Document 09/08/17 10:30 RCC (Rec: 09/08/17 11:04 RCC [email or web address]) Current Condition History of Current Condition Onset Date years ago Current Complaints L shoulder and impaired ability to walk History of Current Condition Pt is a 71 y/o female presenting to physical therapy with a c/o L shoulder pain, as well as bilateral knee pain and swelling L>R limiting her ability to ambulate long distances. Pt notes that she had PT prior for L shoulder with some results, but now is painful when doing her exercises. She sleeps in a upright chair with an ice pack on the L shoulder due to having pain lying down in bed, normally sleeping 2-3 hrs a night. Pt notes that this sleeping position increases her LE swelling. She does not wear compression stockings because they are expensive and Medicare does not cover them. She is waiting on new orthotics to get new shoes. She has to support her L arm most of the time due to pain is she lets it hang. She had an injection in the shoulder which worked for 4 days, and effects wore off before she even had PT last time around. Pt takes Tylenol for pain, and ice helps sometimes. She reports that her orthopedic surgeon suggested that she not do surgery on her shoulder at this point. Pt is undergoing obesity counseling, and is referred for mobility and physical activity with a goal of weight loss, as well as chronic knee and L shoulder pain. Prior Treatments and Tests MRI L shoulder 04/21/2017: Moderate AC joint degeneration , no nearby rotator cuff tears . Irregular globular signal within the superior labrum suggests superior labral tear (SLAP type I or II pathology). No para labral cyst formation . Treatment Goals Patient/Caregiver Goals 1: decrease shoulder pain, 2: increase knee and LE strength to tolerate walking. Prior Functional Status Baseline Function- ADL's Modified Independent Baseline Function- Mobility Modified Independent Baseline Function- Gait community ambulation without device. Current Functional Impairments (Reported) Functional Limitations- ADL's modified indep. Functional Limitations- Mobility/Gait Indep community gait 2 days per week, with increased pain and fatigue. PT-OP-C Subjective Start: 09/08/17 10:49 Freq: Status: Active Protocol: Document 11/16/17 14:28 RCC (Rec: 11/16/17 14:34 RCC [email or web address]) OP-PT Subjective Patient Comments Patient Comments pt reports she had a massage yesterday which helped decrease pain in the L shoulder. PT-OP-F Manual Assessment Start: 09/08/17 10:49 Freq: Status: Active Protocol: Document 10/19/17 15:15 RCC (Rec: 10/19/17 17:40 RCC [email or web address]) Manual Assessments Joint Mobility Assessment Joint Mobility Assessment hypomobile: GH and ST joint on the L. PT-OP-G Mobility & Gait Start: 09/08/17 10:49 Freq: Status: Active Protocol: Document 09/08/17 10:30 RCC (Rec: 09/08/17 13:39 RCC [email or web address]) OP Gait Assessment Comments Gait Comments Mildly antalgic, increased lateral sway, decreased step length on the L. PT-OP-H Neuro Start: 09/08/17 10:49 Freq: Status: Active Protocol: Document 09/08/17 10:30 RCC (Rec: 09/08/17 13:39 RCC [email or web address]) Sensation Evaluation Comments Summary Comments Impaired sensation B toes, intact plantar and dorsal surface of feet. Deep Tendon Reflex & Clonus Assessment Deep Tendon Reflex Bilateral Achilles Deep Tendon Reflex 1+ Diminished Bilateral Patellar Deep Tendon Reflex 1+ Diminished Ankle Clonus Bilateral Clonus Assessment Absent PT-OP-K Range of Motion Start: 09/08/17 10:49 Freq: Status: Active Protocol: Document 10/11/17 11:07 LRN (Rec: 10/11/17 16:56 LRN [id number]) Shoulder Goniometric Range of Motion Shoulder Measured in Degrees Right Active Testing Position Supine Flexion 150 Abduction 110 External Rotation at 90 degrees 90 Abduction Left Active Testing Position Sitting Flexion 145 Abduction 55 PT-OP-L Special Tests Start: 09/08/17 10:49 Freq: Status: Active Protocol: Document 09/08/17 10:30 RCC (Rec: 09/08/17 14:52 RCC [email or web address]) Special Tests Cervical Spine Special Tests Spurling's Test Test Results Negative Shoulder Special Tests Lift-Off Rotator Cuff Test Results negative B Empty Can Test Results positive L, negative R AC Joint Compression Test Results positive L, negative R Anderson Cole Impingement Test Results positive L, negative R Load and Shift Test Results negative B Speed's Biceps Test Results negative B Apprehension Test Test Results negative B Knee Special Tests Eccentric step down test Test Results positive for pain on the L Comments 6 step Varus- 25 Degrees Test Results negative B Varus- 0 Degrees Test Results negative B Valgus- 25 Degrees Test Results negative B Valgus- 0 Degrees Test Results negative B PT-OP-M Strength Start: 09/08/17 10:49 Freq: Status: Active Protocol: Document 10/11/17 11:07 LRN (Rec: 10/11/17 16:56 LRN [id number]) Shoulder Strength Shoulder Manual Muscle Testing Right Flexion 5 Normal Abduction (C5) 2 Poor External Rotation 4 Good Internal Rotation 5 Normal Left Flexion 4 Good Abduction (C5) 3 Fair External Rotation 4+ Good+ Internal Rotation 5 Normal Elbow/Forearm Strength Elbow and Forearm Manual Muscle Testing Right Flexion (C6) 5 Normal Extension (C7) 5 Normal Left Flexion (C6) 5 Normal Extension (C7) 5 Normal Hip Strength Hip Manual Muscle Testing Right Flexion (L2) 5 Normal External Rotation 5 Normal Internal Rotation 5 Normal Left Flexion (L2) 4 Good External Rotation 5 Normal Internal Rotation 5 Normal Knee Strength Knee Manual Muscle Testing Right Flexion (S2) 5 Normal Extension (L3) 5 Normal Left Flexion (S2) 5 Normal Extension (L3) 5 Normal PT-OP-Q Treatments Start: 09/08/17 10:49 Freq: Status: Active Protocol: Document 11/16/17 14:28 RCC (Rec: 11/16/17 14:34 RCC [email or web address]) Therapeutic Exercises Sitting Exercises 4 Sitting Exercise Name Shoulder conor- abduction, flexion Side bilateral Reps/Minutes 10 each Standing Exercises flexion and abduction AAROM Standing Exercise Name AAROM flexion and abduction with ball on table Side left 8 Standing Exercise Name shoulder flexion and scaption Side left Resistance 0 Reps/Minutes 1x10 6 Standing Exercise Name scapular protraction Side bilateral Reps/Minutes 2x10 Comments in wall push-up position Manual Therapy Treatment Joint Mobilizations [address] joint Direction lateral, upward rotation Grade III Body Position Sitting Reps/Duration 10 min Taping 1 Body Location L shoulder Type of Tape Kinesio Tape Comments impingement protocol (pink) PT-OP-R Modalities Start: 09/08/17 10:49 Freq: Status: Active Protocol: Document 11/16/17 14:28 RCC (Rec: 11/16/17 14:34 [facility] [email or web address]) Hot Pack/Cold Pack Treatment Cold Pack Location L Shoulder Patient Position Sitting Treatment Duration (minutes) 10 Patient Tolerance Good Comments wrapped for compression PT-OP-T Assessment and Plan Start: 09/08/17 10:49 Freq: Status: Active Protocol: Document 11/16/17 14:28 [facility] (Rec: 11/16/17 14:34 [facility] [email or web address]) Physical Therapy Assessment Assessment Summary Assessment Pt tolerated sample Kinesiotape well, therefore taped L shoulder today for extra support of the L shoulder. Pt tolerated AAROM with ball assist to be utilized at home. Less cuing required for scapular retraction today. Physical Therapy Plan Frequency and Duration Frequency of Treatment 2x/Week Duration of Treatment 12 weeks Plan of Care Start Date 09/08/17 Plan of Care End Date 12/01/17 Next Visit Focus/Plan Next Note Type Treatment Note Next Visit Plan prog. shoulder strengthening, pectoral streching
--- NOTE | 2017-11-23 15:15 | PT.OTN ---
Current Diagnoses Type 2 diabetes mellitus without complications (11/23/17) Morbid (severe) obesity due to excess calories (11/23/17) Body mass index (BMI) 50-59.9 , adult (11/23/17) Physical Therapy Treatment Note PT-OP-A Visit Information Start: 09/08/17 10:49 Freq: Status: Active Protocol: Document 11/23/17 15:15 RCC (Rec: 11/23/17 17:27 RCC [email or web address]) Out-Patient Physical Therapy Visit Information Visit Information Visit Type Treatment Note Visit Note KX Visit Start Time 14:30 Visit Stop Time 15:20 Total Visit Minutes 50 Visit Number 17 Number of MOLD DUMPER Visits 0 Evaluation Information Evaluation Date 09/08/16 PT-OP-B Current Condition Start: 09/08/17 10:49 Freq: Status: Active Protocol: Document 09/08/17 10:30 RCC (Rec: 09/08/17 11:04 RCC [email or web address]) Current Condition History of Current Condition Onset Date years ago Current Complaints L shoulder and impaired ability to walk History of Current Condition Pt is a 71 y/o female presenting to physical therapy with a c/o L shoulder pain, as well as bilateral knee pain and swelling L>R limiting her ability to ambulate long distances. Pt notes that she had PT prior for L shoulder with some results, but now is painful when doing her exercises. She sleeps in a upright chair with an ice pack on the L shoulder due to having pain lying down in bed, normally sleeping 2-3 hrs a night. Pt notes that this sleeping position increases her LE swelling. She does not wear compression stockings because they are expensive and Medicare does not cover them. She is waiting on new orthotics to get new shoes. She has to support her L arm most of the time due to pain is she lets it hang. She had an injection in the shoulder which worked for 4 days, and effects wore off before she even had PT last time around. Pt takes Tylenol for pain, and ice helps sometimes. She reports that her orthopedic surgeon suggested that she not do surgery on her shoulder at this point. Pt is undergoing obesity counseling, and is referred for mobility and physical activity with a goal of weight loss, as well as chronic knee and L shoulder pain. Prior Treatments and Tests MRI L shoulder 04/21/2017: Moderate AC joint degeneration , no nearby rotator cuff tears . Irregular globular signal within the superior labrum suggests superior labral tear (SLAP type I or II pathology). No para labral cyst formation . Treatment Goals Patient/Caregiver Goals 1: decrease shoulder pain, 2: increase knee and LE strength to tolerate walking. Prior Functional Status Baseline Function- ADL's Modified Independent Baseline Function- Mobility Modified Independent Baseline Function- Gait community ambulation without device. Current Functional Impairments (Reported) Functional Limitations- ADL's modified indep. Functional Limitations- Mobility/Gait Indep community gait 2 days per week, with increased pain and fatigue. PT-OP-C Subjective Start: 09/08/17 10:49 Freq: Status: Active Protocol: Document 11/23/17 15:15 RCC (Rec: 11/23/17 17:27 RCC [email or web address]) OP-PT Subjective Patient Comments Patient Comments pt notes that the kinesiotape did not help decrease pain much. She notes the pain is more in the muscles than in the shoulder joint now. PT-OP-F Manual Assessment Start: 09/08/17 10:49 Freq: Status: Active Protocol: Document 11/23/17 15:15 RCC (Rec: 11/23/17 17:27 RCC [email or web address]) Manual Assessments Soft Tissue Assessment Soft Tissue Mobility Assessment tenderness to palpation: L biceps brachii PT-OP-G Mobility & Gait Start: 09/08/17 10:49 Freq: Status: Active Protocol: Document 09/08/17 10:30 RCC (Rec: 09/08/17 13:39 RCC [email or web address]) OP Gait Assessment Comments Gait Comments Mildly antalgic, increased lateral sway, decreased step length on the L. PT-OP-H Neuro Start: 09/08/17 10:49 Freq: Status: Active Protocol: Document 09/08/17 10:30 RCC (Rec: 09/08/17 13:39 RCC [email or web address]) Sensation Evaluation Comments Summary Comments Impaired sensation B toes, intact plantar and dorsal surface of feet. Deep Tendon Reflex & Clonus Assessment Deep Tendon Reflex Bilateral Achilles Deep Tendon Reflex 1+ Diminished Bilateral Patellar Deep Tendon Reflex 1+ Diminished Ankle Clonus Bilateral Clonus Assessment Absent PT-OP-K Range of Motion Start: 09/08/17 10:49 Freq: Status: Active Protocol: Document 10/11/17 11:07 LRN (Rec: 10/11/17 16:56 LRN [id number]) Shoulder Goniometric Range of Motion Shoulder Measured in Degrees Right Active Testing Position Supine Flexion 150 Abduction 110 External Rotation at 90 degrees 90 Abduction Left Active Testing Position Sitting Flexion 145 Abduction 55 PT-OP-L Special Tests Start: 09/08/17 10:49 Freq: Status: Active Protocol: Document 09/08/17 10:30 RCC (Rec: 09/08/17 14:52 RCC [email or web address]) Special Tests Cervical Spine Special Tests Spurling's Test Test Results Negative Shoulder Special Tests Lift-Off Rotator Cuff Test Results negative B Empty Can Test Results positive L, negative R AC Joint Compression Test Results positive L, negative R Anderson Cole Impingement Test Results positive L, negative R Load and Shift Test Results negative B Speed's Biceps Test Results negative B Apprehension Test Test Results negative B Knee Special Tests Eccentric step down test Test Results positive for pain on the L Comments 6 step Varus- 25 Degrees Test Results negative B Varus- 0 Degrees Test Results negative B Valgus- 25 Degrees Test Results negative B Valgus- 0 Degrees Test Results negative B PT-OP-M Strength Start: 09/08/17 10:49 Freq: Status: Active Protocol: Document 10/11/17 11:07 LRN (Rec: 10/11/17 16:56 LRN [id number]) Shoulder Strength Shoulder Manual Muscle Testing Right Flexion 5 Normal Abduction (C5) 2 Poor External Rotation 4 Good Internal Rotation 5 Normal Left Flexion 4 Good Abduction (C5) 3 Fair External Rotation 4+ Good+ Internal Rotation 5 Normal Elbow/Forearm Strength Elbow and Forearm Manual Muscle Testing Right Flexion (C6) 5 Normal Extension (C7) 5 Normal Left Flexion (C6) 5 Normal Extension (C7) 5 Normal Hip Strength Hip Manual Muscle Testing Right Flexion (L2) 5 Normal External Rotation 5 Normal Internal Rotation 5 Normal Left Flexion (L2) 4 Good External Rotation 5 Normal Internal Rotation 5 Normal Knee Strength Knee Manual Muscle Testing Right Flexion (S2) 5 Normal Extension (L3) 5 Normal Left Flexion (S2) 5 Normal Extension (L3) 5 Normal PT-OP-Q Treatments Start: 09/08/17 10:49 Freq: Status: Active Protocol: Document 11/23/17 15:15 RCC (Rec: 11/23/17 17:27 RCC [email or web address]) Therapeutic Exercises Sitting Exercises seated pectoral stretch Sitting Exercise Name pectoral stretch Side bilateral Equipment Used chair biceps and hammer curls Sitting Exercise Name biceps and hammer curls Side bilateral Resistance 1 lb L, 2 lb R Reps/Minutes 2x10 Standing Exercises 3 Standing Exercise Name scapular retraction/shoulder ext Side bilateral Equipment Used L2 Reps/Minutes 15x2 Comments tactile cuing 2 Standing Exercise Name Scapular depression Side bilateral Resistance L2 Equipment Used T-Band Reps/Minutes 15x2 Manual Therapy Treatment Soft Tissue Mobilization 4 Body Location L biceps brachii Mobilization Type Strumming Intensity/Depth Superficial Body Position Sitting 2 Body Location L pectorals Mobilization Type Strumming Intensity/Depth Superficial Body Position Sitting Joint Mobilizations [address] joint Direction lateral, upward rotation Grade III Body Position Sitting Reps/Duration 10 min PT-OP-R Modalities Start: 09/08/17 10:49 Freq: Status: Active Protocol: Document 11/23/17 15:15 RCC (Rec: 11/23/17 17:27 RCC [email or web address]) Hot Pack/Cold Pack Treatment Cold Pack Location L Shoulder and biceps Patient Position Sitting Treatment Duration (minutes) 10 Patient Tolerance Good Comments wrapped for compression PT-OP-T Assessment and Plan Start: 09/08/17 10:49 Freq: Status: Active Protocol: Document 11/23/17 15:15 RCC (Rec: 11/23/17 17:27 RCC [email or web address]) Physical Therapy Assessment Assessment Summary Assessment Pt with reported less discomfort this week in the shoulder joint, but tenderness in the L biceps. Her L biceps strength is less than the R, as demonstrated with only tolerating 1 lb of bicep curls . Physical Therapy Plan Frequency and Duration Frequency of Treatment 2x/Week Duration of Treatment 12 weeks Plan of Care Start Date 09/08/17 Plan of Care End Date 12/01/17 Next Visit Focus/Plan Next Note Type Progress Note Next Visit Plan reassess obj measures
--- NOTE | 2017-12-14 11:58 | PT.OPPOC ---
Current Diagnoses Type 2 diabetes mellitus without complications (12/14/17) Morbid (severe) obesity due to excess calories (12/14/17) Body mass index (BMI) 50-59.9 , adult (12/14/17) Provider Visit Care Team Role Provider Type Ivan Recinos MD Family Provider Physician Primary Care Provider Specialty: Internal Medicine Address: [address] [place] [address], [id number] Email: 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 LTG Duration GOAL MET Four Impairment UE weakness Intermediate Goal (LTG) Shoulder flexion, elbow flexion and extension at least 4+/5, and shoulder abduction, ER, IR 5/5 with manual muscle testing. 12/14/17: good progress. LTG Duration 8 weeks Three Impairment Impaired gait tolerance Short Term Goal (STG) Pt will be compliant with a walking program 3 days per week for 20 mins. 12/14/17: goal achieved Intermediate Goal (LTG) Pt will be compliant with a walking program, 5 days per week for 30 mins. 12/14/17: progressing toward goal. LTG Duration 8 weeks Two Impairment L shoulder ROM Lube Worker Goal (LTG) L shoulder flexion and abduction to 150 deg, ER to 70 deg. prior to d/c for functional reaching overhead. 12/14/17: ER to 60 deg, flexion to 145 deg. LTG Duration 8 weeks One Impairment L shoulder pain 9/10 Short Term Goal (STG) 6/10 or less rated L shoulder pain STG Duration GOAL MET (09/27/17: Pain 5/10 at rest) Intermediate Goal (LTG) 4/10 or less rated L shoulder pain 12/14/17: pain rated 5/10 L shoulder LTG Duration 8 weeks Progress Towards Goals Progress Towards Goals Progressing Toward Goals Slow Progress due to Activity Tolerance Slow Progress due to Medical Issues Assessment Summary Assessment Pt's ROM of the L shoulder is improving, with abduction to 160 degrees, flexion to 145 degrees, and ER to 60 degrees actively. She is now walking 3 -4 days per week for 30 mins for cardiovascular training and part of her weight loss program. Pt's pain in the L shoulder still limiting her ability to lay flat, unable to sleep in the bed as well as limiting some daily activities . Pt would greatly benefit from aquatic therapy training to progress the ROM and strength of the L shoulder, and continued physical therapy to improve activity tolerance and improvements with functional independence. Physical Therapy Plan Frequency and Duration Frequency of Treatment 2x/Week Duration of Treatment 8 weeks Plan of Care Start Date 12/14/17 Plan of Care End Date 02/08/18 Therapeutic Interventions Therapeutic Interventions Aquatic Therapy Balance Training Gait Training Home Exercise Program Joint Mobilizations Manual Therapy Neuromuscular Re-education Patient/Caregiver Education Self-Care/Home Management Soft Tissue Mobilization Taping Therapeutic Activities Therapeutic Exercises Modalities Cold Pack/Ice Massage Electric Stimulation Hot Packs Ultrasound Next Visit Focus/Plan Next Note Type Treatment Note Next Visit Plan L shoulder strengthening and ROM activities, improving LE stability for progression of gait tolerance Plan of Care Dates Plan of Care Start Date 12/14/17 Plan of Care End Date 02/08/18 Please Sign and Return: I have reviewed this Plan of Care and certify that the skilled therapy services above are required to meet the patient?s needs. Physician Signature Date Printed Name and Credentials Clinical Instructor Signature Printed Name and Credentials
--- NOTE | 2017-12-14 11:58 | PT.OTN ---
Current Diagnoses Type 2 diabetes mellitus without complications (12/14/17) Morbid (severe) obesity due to excess calories (12/14/17) Body mass index (BMI) 50-59.9 , adult (12/14/17) Physical Therapy Treatment Note PT-OP-A Visit Information Start: 09/08/17 10:49 Freq: Status: Active Protocol: Document 12/14/17 11:58 RCC (Rec: 12/15/17 17:50 RCC [email or web address]) Out-Patient Physical Therapy Visit Information Visit Information Visit Type Treatment Note Visit Note KX- G codes @ 28 visits Visit Start Time 11:15 Visit Stop Time 11:58 Total Visit Minutes 43 Visit Number 18 Number of CLOTH SHRINKING TESTER Visits 0 Evaluation Information Evaluation Date 09/08/16 PT-OP-B Current Condition Start: 09/08/17 10:49 Freq: Status: Active Protocol: Document 09/08/17 10:30 RCC (Rec: 09/08/17 11:04 RCC [email or web address]) Current Condition History of Current Condition Onset Date years ago Current Complaints L shoulder and impaired ability to walk History of Current Condition Pt is a 71 y/o female presenting to physical therapy with a c/o L shoulder pain, as well as bilateral knee pain and swelling L>R limiting her ability to ambulate long distances. Pt notes that she had PT prior for L shoulder with some results, but now is painful when doing her exercises. She sleeps in a upright chair with an ice pack on the L shoulder due to having pain lying down in bed, normally sleeping 2-3 hrs a night. Pt notes that this sleeping position increases her LE swelling. She does not wear compression stockings because they are expensive and Medicare does not cover them. She is waiting on new orthotics to get new shoes. She has to support her L arm most of the time due to pain is she lets it hang. She had an injection in the shoulder which worked for 4 days, and effects wore off before she even had PT last time around. Pt takes Tylenol for pain, and ice helps sometimes. She reports that her orthopedic surgeon suggested that she not do surgery on her shoulder at this point. Pt is undergoing obesity counseling, and is referred for mobility and physical activity with a goal of weight loss, as well as chronic knee and L shoulder pain. Prior Treatments and Tests MRI L shoulder 04/21/2017: Moderate AC joint degeneration , no nearby rotator cuff tears . Irregular globular signal within the superior labrum suggests superior labral tear (SLAP type I or II pathology). No para labral cyst formation . Treatment Goals Patient/Caregiver Goals 1: decrease shoulder pain, 2: increase knee and LE strength to tolerate walking. Prior Functional Status Baseline Function- ADL's Modified Independent Baseline Function- Mobility Modified Independent Baseline Function- Gait community ambulation without device. Current Functional Impairments (Reported) Functional Limitations- ADL's modified indep. Functional Limitations- Mobility/Gait Indep community gait 2 days per week, with increased pain and fatigue. PT-OP-C Subjective Start: 09/08/17 10:49 Freq: Status: Active Protocol: Document 12/14/17 11:58 RCC (Rec: 12/15/17 17:50 RCC [email or web address]) OP-PT Subjective Patient Comments Patient Comments Pt is up to walking 3-4 days per week for 30 min for exercise. She is c/o L foot callus, even though she got new insoles months ago. Pain is 5/10 at worst in R shoulder , not able to lay flat. OP-PT Pain Assessment Location Left Lateral Shoulder Pain Location Details lateral and anterior Intensity 5 Scale Used Numeric (1 - 10) Description Aching Sharp Frequency Frequent PT-OP-F Manual Assessment Start: 09/08/17 10:49 Freq: Status: Active Protocol: Document 12/14/17 11:58 RCC (Rec: 12/15/17 17:50 RCC [email or web address]) Manual Assessments Soft Tissue Assessment Soft Tissue Mobility Assessment tenderness to palpation: L biceps brachii PT-OP-G Mobility & Gait Start: 09/08/17 10:49 Freq: Status: Active Protocol: Document 09/08/17 10:30 RCC (Rec: 09/08/17 13:39 RCC [email or web address]) OP Gait Assessment Comments Gait Comments Mildly antalgic, increased lateral sway, decreased step length on the L. PT-OP-H Neuro Start: 09/08/17 10:49 Freq: Status: Active Protocol: Document 09/08/17 10:30 RCC (Rec: 09/08/17 13:39 RCC [email or web address]) Sensation Evaluation Comments Summary Comments Impaired sensation B toes, intact plantar and dorsal surface of feet. Deep Tendon Reflex & Clonus Assessment Deep Tendon Reflex Bilateral Achilles Deep Tendon Reflex 1+ Diminished Bilateral Patellar Deep Tendon Reflex 1+ Diminished Ankle Clonus Bilateral Clonus Assessment Absent PT-OP-K Range of Motion Start: 09/08/17 10:49 Freq: Status: Active Protocol: Document 12/14/17 11:58 RCC (Rec: 12/15/17 17:50 RCC [email or web address]) Shoulder Goniometric Range of Motion Shoulder Measured in Degrees Left Active Testing Position Sitting Flexion 145 Abduction 160 External Rotation at 0 degrees Abduction 60 PT-OP-L Special Tests Start: 09/08/17 10:49 Freq: Status: Active Protocol: Document 09/08/17 10:30 RCC (Rec: 09/08/17 14:52 RCC [email or web address]) Special Tests Cervical Spine Special Tests Spurling's Test Test Results Negative Shoulder Special Tests Lift-Off Rotator Cuff Test Results negative B Empty Can Test Results positive L, negative R AC Joint Compression Test Results positive L, negative R Anderson Cole Impingement Test Results positive L, negative R Load and Shift Test Results negative B Speed's Biceps Test Results negative B Apprehension Test Test Results negative B Knee Special Tests Eccentric step down test Test Results positive for pain on the L Comments 6 step Varus- 25 Degrees Test Results negative B Varus- 0 Degrees Test Results negative B Valgus- 25 Degrees Test Results negative B Valgus- 0 Degrees Test Results negative B PT-OP-M Strength Start: 09/08/17 10:49 Freq: Status: Active Protocol: Document 12/14/17 11:58 RCC (Rec: 12/15/17 17:50 RCC [email or web address]) Shoulder Strength Shoulder Manual Muscle Testing Left Flexion 4+ Good+ Abduction (C5) 4 Good External Rotation 4+ Good+ Internal Rotation 5 Normal Elbow/Forearm Strength Elbow and Forearm Manual Muscle Testing Left Flexion (C6) 4+ Good+ Extension (C7) 5 Normal PT-OP-Q Treatments Start: 09/08/17 10:49 Freq: Status: Active Protocol: Document 12/14/17 11:58 RCC (Rec: 12/15/17 17:50 RCC [email or web address]) Therapeutic Exercises Sitting Exercises seated pectoral stretch Sitting Exercise Name pectoral stretch Side bilateral Equipment Used chair biceps and hammer curls Sitting Exercise Name biceps and hammer curls Side bilateral Resistance 2 lbs Reps/Minutes 2x10 Manual Therapy Treatment Soft Tissue Mobilization 4 Body Location L biceps brachii Mobilization Type Strumming Intensity/Depth Moderate Body Position Sitting 3 Body Location L supraspinatus Mobilization Type Strumming Intensity/Depth Moderate Body Position Sitting 2 Body Location L pectorals Mobilization Type Strumming Intensity/Depth Moderate Body Position Sitting Joint Mobilizations [address] joint Direction lateral, upward rotation Grade III Body Position Sitting Reps/Duration 10 min Other Other Manual Treatments LUE MMT, L shoulder ROM PT-OP-R Modalities Start: 09/08/17 10:49 Freq: Status: Active Protocol: Document 11/23/17 15:15 RCC (Rec: 11/23/17 17:27 RCC [email or web address]) Hot Pack/Cold Pack Treatment Cold Pack Location L Shoulder and biceps Patient Position Sitting Treatment Duration (minutes) 10 Patient Tolerance Good Comments wrapped for compression PT-OP-T Assessment and Plan Start: 09/08/17 10:49 Freq: Status: Active Protocol: Document 12/14/17 11:58 RCC (Rec: 12/15/17 17:50 RCC [email or web address]) Physical Therapy Assessment Goals Five Impairment LE strength Jail Goal (LTG) knee flexion and extension, hip flexion, ER and IR to 4+/5 or greater prior to d/c. LTG Duration GOAL MET Four Impairment UE weakness Reading Aide Goal (LTG) Shoulder flexion, elbow flexion and extension at least 4+/5, and shoulder abduction, ER, IR 5/5 with manual muscle testing. 12/14/17: good progress. LTG Duration 8 weeks Three Impairment Impaired gait tolerance Short Term Goal (STG) Pt will be compliant with a walking program 3 days per week for 20 mins. 12/14/17: goal achieved Jail Goal (LTG) Pt will be compliant with a walking program, 5 days per week for 30 mins. 12/14/17: progressing toward goal. LTG Duration 8 weeks Two Impairment L shoulder ROM Jail Goal (LTG) L shoulder flexion and abduction to 150 deg, ER to 70 deg. prior to d/c for functional reaching overhead. 12/14/17: ER to 60 deg, flexion to 145 deg. LTG Duration 8 weeks One Impairment L shoulder pain 9/10 Short Term Goal (STG) 6/10 or less rated L shoulder pain STG Duration GOAL MET (09/27/17: Pain 5/10 at rest) Reading Aide Goal (LTG) 4/10 or less rated L shoulder pain 12/14/17: pain rated 5/10 L shoulder LTG Duration 8 weeks Progress Towards Goals Progress Towards Goals Progressing Toward Goals Slow Progress due to Activity Tolerance Slow Progress due to Medical Issues Assessment Summary Assessment Pt's ROM of the L shoulder is improving, with abduction to 160 degrees, flexion to 145 degrees, and ER to 60 degrees actively. She is now walking 3 -4 days per week for 30 mins for cardiovascular training and part of her weight loss program. Pt's pain in the L shoulder still limiting her ability to lay flat, unable to sleep in the bed as well as limiting some daily activities . Pt would greatly benefit from aquatic therapy training to progress the ROM and strength of the L shoulder, and continued physical therapy to improve activity tolerance and improvements with functional independence. Physical Therapy Plan Frequency and Duration Frequency of Treatment 2x/Week Duration of Treatment 8 weeks Plan of Care Start Date 12/14/17 Plan of Care End Date 02/08/18 Therapeutic Interventions Therapeutic Interventions Aquatic Therapy Balance Training Gait Training Home Exercise Program Joint Mobilizations Manual Therapy Neuromuscular Re-education Patient/Caregiver Education Self-Care/Home Management Soft Tissue Mobilization Taping Therapeutic Activities Therapeutic Exercises Modalities Cold Pack/Ice Massage Electric Stimulation Hot Packs Ultrasound Next Visit Focus/Plan Next Note Type Treatment Note Next Visit Plan L shoulder strengthening and ROM activities, improving LE stability for progression of gait tolerance
--- NOTE | 2017-12-21 15:43 | PT.OTN ---
Current Diagnoses Type 2 diabetes mellitus without complications (12/21/17) Morbid (severe) obesity due to excess calories (12/21/17) Body mass index (BMI) 50-59.9 , adult (12/21/17) Physical Therapy Treatment Note PT-OP-A Visit Information Start: 09/08/17 10:49 Freq: Status: Active Protocol: Document 12/21/17 11:45 LJ (Rec: 12/21/17 15:21 LJ [email or web address]) Out-Patient Physical Therapy Visit Information Visit Information Visit Type Aquatic Treatment Note Visit Start Time 11:45 Visit Stop Time 12:30 Total Visit Minutes 45 Visit Number 19 Number of PORT TRAFFIC MANAGER Visits 1 Evaluation Information Evaluation Date 09/08/16 PT-OP-B Current Condition Start: 09/08/17 10:49 Freq: Status: Active Protocol: Document 09/08/17 10:30 RCC (Rec: 09/08/17 11:04 RCC [email or web address]) Current Condition History of Current Condition Onset Date years ago Current Complaints L shoulder and impaired ability to walk History of Current Condition Pt is a 71 y/o female presenting to physical therapy with a c/o L shoulder pain, as well as bilateral knee pain and swelling L>R limiting her ability to ambulate long distances. Pt notes that she had PT prior for L shoulder with some results, but now is painful when doing her exercises. She sleeps in a upright chair with an ice pack on the L shoulder due to having pain lying down in bed, normally sleeping 2-3 hrs a night. Pt notes that this sleeping position increases her LE swelling. She does not wear compression stockings because they are expensive and Medicare does not cover them. She is waiting on new orthotics to get new shoes. She has to support her L arm most of the time due to pain is she lets it hang. She had an injection in the shoulder which worked for 4 days, and effects wore off before she even had PT last time around. Pt takes Tylenol for pain, and ice helps sometimes. She reports that her orthopedic surgeon suggested that she not do surgery on her shoulder at this point. Pt is undergoing obesity counseling, and is referred for mobility and physical activity with a goal of weight loss, as well as chronic knee and L shoulder pain. Prior Treatments and Tests MRI L shoulder 04/21/2017: Moderate AC joint degeneration , no nearby rotator cuff tears . Irregular globular signal within the superior labrum suggests superior labral tear (SLAP type I or II pathology). No para labral cyst formation . Treatment Goals Patient/Caregiver Goals 1: decrease shoulder pain, 2: increase knee and LE strength to tolerate walking. Prior Functional Status Baseline Function- ADL's Modified Independent Baseline Function- Mobility Modified Independent Baseline Function- Gait community ambulation without device. Current Functional Impairments (Reported) Functional Limitations- ADL's modified indep. Functional Limitations- Mobility/Gait Indep community gait 2 days per week, with increased pain and fatigue. PT-OP-C Subjective Start: 09/08/17 10:49 Freq: Status: Active Protocol: Document 12/21/17 11:45 LJ (Rec: 12/21/17 15:21 LJ [email or web address]) OP-PT Subjective Patient Comments Patient Comments Pt states she has been able to walk more and her knee is not as painful as shoulder although knee still gives her trouble on stairs. PT-OP-F Manual Assessment Start: 09/08/17 10:49 Freq: Status: Active Protocol: Document 12/14/17 11:58 RCC (Rec: 12/15/17 17:50 RCC [email or web address]) Manual Assessments Soft Tissue Assessment Soft Tissue Mobility Assessment tenderness to palpation: L biceps brachii PT-OP-G Mobility & Gait Start: 09/08/17 10:49 Freq: Status: Active Protocol: Document 09/08/17 10:30 RCC (Rec: 09/08/17 13:39 RCC [email or web address]) OP Gait Assessment Comments Gait Comments Mildly antalgic, increased lateral sway, decreased step length on the L. PT-OP-H Neuro Start: 09/08/17 10:49 Freq: Status: Active Protocol: Document 09/08/17 10:30 RCC (Rec: 09/08/17 13:39 RCC [email or web address]) Sensation Evaluation Comments Summary Comments Impaired sensation B toes, intact plantar and dorsal surface of feet. Deep Tendon Reflex & Clonus Assessment Deep Tendon Reflex Bilateral Achilles Deep Tendon Reflex 1+ Diminished Bilateral Patellar Deep Tendon Reflex 1+ Diminished Ankle Clonus Bilateral Clonus Assessment Absent PT-OP-K Range of Motion Start: 09/08/17 10:49 Freq: Status: Active Protocol: Document 12/14/17 11:58 RCC (Rec: 12/15/17 17:50 RCC [email or web address]) Shoulder Goniometric Range of Motion Shoulder Measured in Degrees Left Active Testing Position Sitting Flexion 145 Abduction 160 External Rotation at 0 degrees Abduction 60 PT-OP-L Special Tests Start: 09/08/17 10:49 Freq: Status: Active Protocol: Document 09/08/17 10:30 RCC (Rec: 09/08/17 14:52 RCC [email or web address]) Special Tests Cervical Spine Special Tests Spurling's Test Test Results Negative Shoulder Special Tests Lift-Off Rotator Cuff Test Results negative B Empty Can Test Results positive L, negative R AC Joint Compression Test Results positive L, negative R Anderson Cole Impingement Test Results positive L, negative R Load and Shift Test Results negative B Speed's Biceps Test Results negative B Apprehension Test Test Results negative B Knee Special Tests Eccentric step down test Test Results positive for pain on the L Comments 6 step Varus- 25 Degrees Test Results negative B Varus- 0 Degrees Test Results negative B Valgus- 25 Degrees Test Results negative B Valgus- 0 Degrees Test Results negative B PT-OP-M Strength Start: 09/08/17 10:49 Freq: Status: Active Protocol: Document 12/14/17 11:58 RCC (Rec: 12/15/17 17:50 RCC [email or web address]) Shoulder Strength Shoulder Manual Muscle Testing Left Flexion 4+ Good+ Abduction (C5) 4 Good External Rotation 4+ Good+ Internal Rotation 5 Normal Elbow/Forearm Strength Elbow and Forearm Manual Muscle Testing Left Flexion (C6) 4+ Good+ Extension (C7) 5 Normal PT-OP-Q Treatments Start: 09/08/17 10:49 Freq: Status: Active Protocol: Document 12/14/17 11:58 RCC (Rec: 12/15/17 17:50 RCC [email or web address]) Therapeutic Exercises Sitting Exercises seated pectoral stretch Sitting Exercise Name pectoral stretch Side bilateral Equipment Used chair biceps and hammer curls Sitting Exercise Name biceps and hammer curls Side bilateral Resistance 2 lbs Reps/Minutes 2x10 Manual Therapy Treatment Soft Tissue Mobilization 4 Body Location L biceps brachii Mobilization Type Strumming Intensity/Depth Moderate Body Position Sitting 3 Body Location L supraspinatus Mobilization Type Strumming Intensity/Depth Moderate Body Position Sitting 2 Body Location L pectorals Mobilization Type Strumming Intensity/Depth Moderate Body Position Sitting Joint Mobilizations [address] joint Direction lateral, upward rotation Grade III Body Position Sitting Reps/Duration 10 min Other Other Manual Treatments LUE MMT, L shoulder ROM PT-OP-R Modalities Start: 09/08/17 10:49 Freq: Status: Active Protocol: Document 11/23/17 15:15 RCC (Rec: 11/23/17 17:27 RCC [email or web address]) Hot Pack/Cold Pack Treatment Cold Pack Location L Shoulder and biceps Patient Position Sitting Treatment Duration (minutes) 10 Patient Tolerance Good Comments wrapped for compression PT-OP-S Aquatic Treatment Start: 12/21/17 15:20 Freq: Status: Active Protocol: Document 12/21/17 11:45 LJ (Rec: 12/21/17 15:43 LJ [email or web address]) Aquatics Treatment Pool Entry/Exit Pool Entry/Exit Method Stairs Assistance Independent Water Walking Monster Walk Water Level Chest Level Comments cues for stabilization Lunge Walk Water Level Chest Level Level of Assistance Standby Assistance Comments verbal cues for alignment Sideways Water Level Chest Level Level of Assistance Standby Assistance Verbal Cues Comments L foot ER Forwards Water Level Chest Level Level of Assistance Standby Assistance Comments Verbal cues for alignment Lower Extremity Exercises 1 Details squats Body Position Standing Water Level Chest Level Reps/Duration 10 Comments cues for mm activation sequence Upper Extremity Exercises 7 Details wipers Body Position Standing Water Level Chest Level Reps/Duration 10 x 2 Comments cues for coordination 6 Details ab/ad Body Position Standing Water Level Chest Level Reps/Duration 5 Comments bent elbow-pt reported pain 5 Details bicep curl/ ext Body Position Standing Reps/Duration 10 x 2 Upper Extremity Stretches 1 Details forward walking arms extended Comments mod cues for scap stabilization Balance 1 Details step up/down Body Position Standing Water Level Chest Level Reps/Duration 10 min Comments 6 steps; forward, sideways PT-OP-T Assessment and Plan Start: 09/08/17 10:49 Freq: Status: Active Protocol: Document 12/21/17 11:45 LJ (Rec: 12/21/17 15:43 LJ [email or web address]) Physical Therapy Assessment Goals Five Impairment LE strength Lead Massage Therapist Goal (LTG) knee flexion and extension, hip flexion, ER and IR to 4+/5 or greater prior to d/c. LTG Duration GOAL MET Four Impairment UE weakness Lead Massage Therapist Goal (LTG) Shoulder flexion, elbow flexion and extension at least 4+/5, and shoulder abduction, ER, IR 5/5 with manual muscle testing. 12/14/17: good progress. LTG Duration 8 weeks Three Impairment Impaired gait tolerance Short Term Goal (STG) Pt will be compliant with a walking program 3 days per week for 20 mins. 12/14/17: goal achieved [facility] Goal (LTG) Pt will be compliant with a walking program, 5 days per week for 30 mins. 12/14/17: progressing toward goal. LTG Duration 8 weeks Two Impairment L shoulder ROM [facility] Goal (LTG) L shoulder flexion and abduction to 150 deg, ER to 70 deg. prior to d/c for functional reaching overhead. 12/14/17: ER to 60 deg, flexion to 145 deg. LTG Duration 8 weeks One Impairment L shoulder pain 9/10 Short Term Goal (STG) 6/10 or less rated L shoulder pain STG Duration GOAL MET (09/27/17: Pain 5/10 at rest) [facility] Goal (LTG) 4/10 or less rated L shoulder pain 12/14/17: pain rated 5/10 L shoulder LTG Duration 8 weeks Progress Towards Goals Progress Towards Goals Progressing Toward Goals Slow Progress due to Activity Tolerance Slow Progress due to Medical Issues Assessment Summary Assessment Pt tolerated aquatic treatment w/o complaint. Req'd core exercises for neuro muscular re-ed. LOB on stairs several times. Needs mod cues for scapular retraction Physical Therapy Plan Frequency and Duration Frequency of Treatment 2x/Week Duration of Treatment 8 weeks Plan of Care Start Date 12/14/17 Plan of Care End Date 02/08/18 Therapeutic Interventions Therapeutic Interventions Aquatic Therapy Balance Training Gait Training Home Exercise Program Joint Mobilizations Manual Therapy Neuromuscular Re-education Patient/Caregiver Education Self-Care/Home Management Soft Tissue Mobilization Taping Therapeutic Activities Therapeutic Exercises Next Visit Focus/Plan Next Note Type Treatment Note Next Visit Plan Focus on core stabilization, gait, and stairs for LEs. Scapular stabilization exercises for UEs. Pec stretching.
--- NOTE | 2017-12-28 15:10 | PT.OTN ---
Current Diagnoses Type 2 diabetes mellitus without complications (12/28/17) Morbid (severe) obesity due to excess calories (12/28/17) Body mass index (BMI) 50-59.9 , adult (12/28/17) Physical Therapy Treatment Note PT-OP-A Visit Information Start: 09/08/17 10:49 Freq: Status: Active Protocol: Document 12/28/17 11:45 LJ (Rec: 12/28/17 15:10 LJ [email or web address]) Out-Patient Physical Therapy Visit Information Visit Information Visit Type Aquatic Treatment Note Visit Start Time 11:45 Visit Stop Time 12:40 Total Visit Minutes 55 Visit Number 20 Number of COMMUNITY SERVICES MANAGER Visits 2 PT-OP-B Current Condition Start: 09/08/17 10:49 Freq: Status: Active Protocol: Document 09/08/17 10:30 RCC (Rec: 09/08/17 11:04 RCC [email or web address]) Current Condition History of Current Condition Onset Date years ago Current Complaints L shoulder and impaired ability to walk History of Current Condition Pt is a 71 y/o female presenting to physical therapy with a c/o L shoulder pain, as well as bilateral knee pain and swelling L>R limiting her ability to ambulate long distances. Pt notes that she had PT prior for L shoulder with some results, but now is painful when doing her exercises. She sleeps in a upright chair with an ice pack on the L shoulder due to having pain lying down in bed, normally sleeping 2-3 hrs a night. Pt notes that this sleeping position increases her LE swelling. She does not wear compression stockings because they are expensive and Medicare does not cover them. She is waiting on new orthotics to get new shoes. She has to support her L arm most of the time due to pain is she lets it hang. She had an injection in the shoulder which worked for 4 days, and effects wore off before she even had PT last time around. Pt takes Tylenol for pain, and ice helps sometimes. She reports that her orthopedic surgeon suggested that she not do surgery on her shoulder at this point. Pt is undergoing obesity counseling, and is referred for mobility and physical activity with a goal of weight loss, as well as chronic knee and L shoulder pain. Prior Treatments and Tests MRI L shoulder 04/21/2017: Moderate AC joint degeneration , no nearby rotator cuff tears . Irregular globular signal within the superior labrum suggests superior labral tear (SLAP type I or II pathology). No para labral cyst formation . Treatment Goals Patient/Caregiver Goals 1: decrease shoulder pain, 2: increase knee and LE strength to tolerate walking. Prior Functional Status Baseline Function- ADL's Modified Independent Baseline Function- Mobility Modified Independent Baseline Function- Gait community ambulation without device. Current Functional Impairments (Reported) Functional Limitations- ADL's modified indep. Functional Limitations- Mobility/Gait Indep community gait 2 days per week, with increased pain and fatigue. PT-OP-C Subjective Start: 09/08/17 10:49 Freq: Status: Active Protocol: Document 12/28/17 11:45 LJ (Rec: 12/28/17 15:10 LJ [email or web address]) OP-PT Subjective Patient Comments Patient Comments Pt states she is able to walk more but her feet and knees begin bothering her after about 30 min. Shoulder pain is biggest concern today. Very stiff when she gets up. Massage helps. OP-PT Pain Assessment Location Left Lateral Shoulder Pain Location Details lateral and anterior Intensity 4 Scale Used Numeric (1 - 10) Description Aching Sharp Frequency Frequent PT-OP-F Manual Assessment Start: 09/08/17 10:49 Freq: Status: Active Protocol: Document 12/14/17 11:58 RCC (Rec: 12/15/17 17:50 RCC [email or web address]) Manual Assessments Soft Tissue Assessment Soft Tissue Mobility Assessment tenderness to palpation: L biceps brachii PT-OP-G Mobility & Gait Start: 09/08/17 10:49 Freq: Status: Active Protocol: Document 09/08/17 10:30 RCC (Rec: 09/08/17 13:39 RCC [email or web address]) OP Gait Assessment Comments Gait Comments Mildly antalgic, increased lateral sway, decreased step length on the L. PT-OP-H Neuro Start: 09/08/17 10:49 Freq: Status: Active Protocol: Document 09/08/17 10:30 RCC (Rec: 09/08/17 13:39 RCC [email or web address]) Sensation Evaluation Comments Summary Comments Impaired sensation B toes, intact plantar and dorsal surface of feet. Deep Tendon Reflex & Clonus Assessment Deep Tendon Reflex Bilateral Achilles Deep Tendon Reflex 1+ Diminished Bilateral Patellar Deep Tendon Reflex 1+ Diminished Ankle Clonus Bilateral Clonus Assessment Absent PT-OP-K Range of Motion Start: 09/08/17 10:49 Freq: Status: Active Protocol: Document 12/14/17 11:58 RCC (Rec: 12/15/17 17:50 RCC [email or web address]) Shoulder Goniometric Range of Motion Shoulder Measured in Degrees Left Active Testing Position Sitting Flexion 145 Abduction 160 External Rotation at 0 degrees Abduction 60 PT-OP-L Special Tests Start: 09/08/17 10:49 Freq: Status: Active Protocol: Document 09/08/17 10:30 RCC (Rec: 09/08/17 14:52 RCC [email or web address]) Special Tests Cervical Spine Special Tests Spurling's Test Test Results Negative Shoulder Special Tests Lift-Off Rotator Cuff Test Results negative B Empty Can Test Results positive L, negative R AC Joint Compression Test Results positive L, negative R Anderson Cole Impingement Test Results positive L, negative R Load and Shift Test Results negative B Speed's Biceps Test Results negative B Apprehension Test Test Results negative B Knee Special Tests Eccentric step down test Test Results positive for pain on the L Comments 6 step Varus- 25 Degrees Test Results negative B Varus- 0 Degrees Test Results negative B Valgus- 25 Degrees Test Results negative B Valgus- 0 Degrees Test Results negative B PT-OP-M Strength Start: 09/08/17 10:49 Freq: Status: Active Protocol: Document 12/14/17 11:58 RCC (Rec: 12/15/17 17:50 RCC [email or web address]) Shoulder Strength Shoulder Manual Muscle Testing Left Flexion 4+ Good+ Abduction (C5) 4 Good External Rotation 4+ Good+ Internal Rotation 5 Normal Elbow/Forearm Strength Elbow and Forearm Manual Muscle Testing Left Flexion (C6) 4+ Good+ Extension (C7) 5 Normal PT-OP-Q Treatments Start: 09/08/17 10:49 Freq: Status: Active Protocol: Document 12/14/17 11:58 RCC (Rec: 12/15/17 17:50 [facility] [email or web address]) Therapeutic Exercises Sitting Exercises seated pectoral stretch Sitting Exercise Name pectoral stretch Side bilateral Equipment Used chair biceps and hammer curls Sitting Exercise Name biceps and hammer curls Side bilateral Resistance 2 lbs Reps/Minutes 2x10 Manual Therapy Treatment Soft Tissue Mobilization 4 Body Location L biceps brachii Mobilization Type Strumming Intensity/Depth Moderate Body Position Sitting 3 Body Location L supraspinatus Mobilization Type Strumming Intensity/Depth Moderate Body Position Sitting 2 Body Location L pectorals Mobilization Type Strumming Intensity/Depth Moderate Body Position Sitting Joint Mobilizations [address] joint Direction lateral, upward rotation Grade III Body Position Sitting Reps/Duration 10 min Other Other Manual Treatments LUE MMT, L shoulder ROM PT-OP-R Modalities Start: 09/08/17 10:49 Freq: Status: Active Protocol: Document 11/23/17 15:15 RCC (Rec: 11/23/17 17:27 RCC [email or web address]) Hot Pack/Cold Pack Treatment Cold Pack Location L Shoulder and biceps Patient Position Sitting Treatment Duration (minutes) 10 Patient Tolerance Good Comments wrapped for compression PT-OP-S Aquatic Treatment Start: 12/21/17 15:20 Freq: Status: Active Protocol: Document 12/28/17 11:45 LJ (Rec: 12/28/17 15:10 LJ [email or web address]) Aquatics Treatment Pool Entry/Exit Pool Entry/Exit Method Stairs Assistance Independent Upper Extremity Exercises 7 Details wipers Body Position Standing Water Level [place] Reps/Duration 2 min Comments gentle motion while bicycling 6 Details ab/ad Body Position Standing Water Level [place] Reps/Duration 2 min Comments gentle motion while bicycling 5 Details bicep curl/ ext Body Position Standing Water Level [place] Reps/Duration 2 min Comments gentle motion while bicycling 4 Details flex/ext Body Position Standing Water Level [place] Reps/Duration 2 min Comments gentle motion while bicycling Upper Extremity Stretches 1 Details forward walking arms extended Comments mod cues for scap stabilization [place] Activities Other Activities bicycling with varied arm movements Equipment belt Manual Techniques Aquatic Massage left upper traps, scalenes, bicep :supine on yoga mat; bilat LEs for muscle cramping PT-OP-T Assessment and Plan Start: 09/08/17 10:49 Freq: Status: Active Protocol: Document 12/28/17 11:45 MARIE (Rec: 12/28/17 15:10 LJ [email or web address]) Physical Therapy Assessment Goals Five Impairment LE strength Detention Goal (LTG) knee flexion and extension, hip flexion, ER and IR to 4+/5 or greater prior to d/c. Four Impairment UE weakness Detention Goal (LTG) Shoulder flexion, elbow flexion and extension at least 4+/5, and shoulder abduction, ER, IR 5/5 with manual muscle testing. 12/14/17: good progress. LTG Duration 8 weeks Three Impairment Impaired gait tolerance Short Term Goal (STG) Pt will be compliant with a walking program 3 days per week for 20 mins. 12/14/17: goal achieved Detention Goal (LTG) Pt will be compliant with a walking program, 5 days per week for 30 mins. 12/14/17: progressing toward goal. LTG Duration 8 weeks Two Impairment L shoulder ROM Credit Rating Inspector Goal (LTG) L shoulder flexion and abduction to 150 deg, ER to 70 deg. prior to d/c for functional reaching overhead. 12/14/17: ER to 60 deg, flexion to 145 deg. LTG Duration 8 weeks One Impairment L shoulder pain 9/10 Short Term Goal (STG) 6/10 or less rated L shoulder pain Credit Rating Inspector Goal (LTG) 4/10 or less rated L shoulder pain 12/14/17: pain rated 5/10 L shoulder Progress Towards Goals Progress Towards Goals Progressing Toward Goals Slow Progress due to Activity Tolerance Slow Progress due to Medical Issues Assessment Summary Assessment Pt arrived 10 -15 min early for appointment anc began water walking . Experienced significant bilat LE cramping which prevented pt from safely getting out of water when appointment was finished. COMMUNITY SERVICES MANAGER remained with pt to provide manual therapy for cramping. Physical Therapy Plan Frequency and Duration Frequency of Treatment 2x/Week Duration of Treatment 8 weeks Plan of Care Start Date 12/14/17 Plan of Care End Date 02/08/18 Therapeutic Interventions Therapeutic Interventions Aquatic Therapy Balance Training Gait Training Home Exercise Program Joint Mobilizations Manual Therapy Neuromuscular Re-education Patient/Caregiver Education Self-Care/Home Management Soft Tissue Mobilization Taping Therapeutic Activities Therapeutic Exercises Next Visit Focus/Plan Next Note Type Treatment Note Next Visit Plan Provide manual therapy and decrease pt level of exertion d/t LE cramping. Provide safety training on amount of exercise that is appropriate for her condition.
--- NOTE | 2018-01-04 15:08 | PT.OTN ---
Current Diagnoses Type 2 diabetes mellitus without complications (01/04/18) Morbid (severe) obesity due to excess calories (01/04/18) Body mass index (BMI) 50-59.9 , adult (01/04/18) Physical Therapy Treatment Note PT-OP-A Visit Information Start: 09/08/17 10:49 Freq: Status: Active Protocol: Document 01/04/18 11:45 LJ (Rec: 01/04/18 15:07 LJ [email or web address]) Out-Patient Physical Therapy Visit Information Visit Information Visit Type Aquatic Treatment Note Visit Start Time 11:45 Visit Stop Time 12:30 Total Visit Minutes 45 Visit Number 21 Number of TYPE COPY EXAMINER Visits 3 PT-OP-B Current Condition Start: 09/08/17 10:49 Freq: Status: Active Protocol: Document 09/08/17 10:30 RCC (Rec: 09/08/17 11:04 RCC [email or web address]) Current Condition History of Current Condition Onset Date years ago Current Complaints L shoulder and impaired ability to walk History of Current Condition Pt is a 71 y/o female presenting to physical therapy with a c/o L shoulder pain, as well as bilateral knee pain and swelling L>R limiting her ability to ambulate long distances. Pt notes that she had PT prior for L shoulder with some results, but now is painful when doing her exercises. She sleeps in a upright chair with an ice pack on the L shoulder due to having pain lying down in bed, normally sleeping 2-3 hrs a night. Pt notes that this sleeping position increases her LE swelling. She does not wear compression stockings because they are expensive and Medicare does not cover them. She is waiting on new orthotics to get new shoes. She has to support her L arm most of the time due to pain is she lets it hang. She had an injection in the shoulder which worked for 4 days, and effects wore off before she even had PT last time around. Pt takes Tylenol for pain, and ice helps sometimes. She reports that her orthopedic surgeon suggested that she not do surgery on her shoulder at this point. Pt is undergoing obesity counseling, and is referred for mobility and physical activity with a goal of weight loss, as well as chronic knee and L shoulder pain. Prior Treatments and Tests MRI L shoulder 04/21/2017: Moderate AC joint degeneration , no nearby rotator cuff tears . Irregular globular signal within the superior labrum suggests superior labral tear (SLAP type I or II pathology). No para labral cyst formation . Treatment Goals Patient/Caregiver Goals 1: decrease shoulder pain, 2: increase knee and LE strength to tolerate walking. Prior Functional Status Baseline Function- ADL's Modified Independent Baseline Function- Mobility Modified Independent Baseline Function- Gait community ambulation without device. Current Functional Impairments (Reported) Functional Limitations- ADL's modified indep. Functional Limitations- Mobility/Gait Indep community gait 2 days per week, with increased pain and fatigue. PT-OP-C Subjective Start: 09/08/17 10:49 Freq: Status: Active Protocol: Document 01/04/18 11:45 LJ (Rec: 01/04/18 15:07 LJ [email or web address]) OP-PT Subjective Patient Comments Patient Comments Pt reports shoulder is not painful but feet hurt after doing the walking she has been advised to do by PT. PT-OP-F Manual Assessment Start: 09/08/17 10:49 Freq: Status: Active Protocol: Document 12/14/17 11:58 RCC (Rec: 12/15/17 17:50 RCC [email or web address]) Manual Assessments Soft Tissue Assessment Soft Tissue Mobility Assessment tenderness to palpation: L biceps brachii PT-OP-G Mobility & Gait Start: 09/08/17 10:49 Freq: Status: Active Protocol: Document 09/08/17 10:30 RCC (Rec: 09/08/17 13:39 RCC [email or web address]) OP Gait Assessment Comments Gait Comments Mildly antalgic, increased lateral sway, decreased step length on the L. PT-OP-H Neuro Start: 09/08/17 10:49 Freq: Status: Active Protocol: Document 09/08/17 10:30 RCC (Rec: 09/08/17 13:39 RCC [email or web address]) Sensation Evaluation Comments Summary Comments Impaired sensation B toes, intact plantar and dorsal surface of feet. Deep Tendon Reflex & Clonus Assessment Deep Tendon Reflex Bilateral Achilles Deep Tendon Reflex 1+ Diminished Bilateral Patellar Deep Tendon Reflex 1+ Diminished Ankle Clonus Bilateral Clonus Assessment Absent PT-OP-K Range of Motion Start: 09/08/17 10:49 Freq: Status: Active Protocol: Document 12/14/17 11:58 RCC (Rec: 12/15/17 17:50 RCC [email or web address]) Shoulder Goniometric Range of Motion Shoulder Measured in Degrees Left Active Testing Position Sitting Flexion 145 Abduction 160 External Rotation at 0 degrees Abduction 60 PT-OP-L Special Tests Start: 09/08/17 10:49 Freq: Status: Active Protocol: Document 09/08/17 10:30 RCC (Rec: 09/08/17 14:52 RCC [email or web address]) Special Tests Cervical Spine Special Tests Spurling's Test Test Results Negative Shoulder Special Tests Lift-Off Rotator Cuff Test Results negative B Empty Can Test Results positive L, negative R AC Joint Compression Test Results positive L, negative R Anderson Cole Impingement Test Results positive L, negative R Load and Shift Test Results negative B Speed's Biceps Test Results negative B Apprehension Test Test Results negative B Knee Special Tests Eccentric step down test Test Results positive for pain on the L Comments 6 step Varus- 25 Degrees Test Results negative B Varus- 0 Degrees Test Results negative B Valgus- 25 Degrees Test Results negative B Valgus- 0 Degrees Test Results negative B PT-OP-M Strength Start: 09/08/17 10:49 Freq: Status: Active Protocol: Document 12/14/17 11:58 RCC (Rec: 12/15/17 17:50 RCC [email or web address]) Shoulder Strength Shoulder Manual Muscle Testing Left Flexion 4+ Good+ Abduction (C5) 4 Good External Rotation 4+ Good+ Internal Rotation 5 Normal Elbow/Forearm Strength Elbow and Forearm Manual Muscle Testing Left Flexion (C6) 4+ Good+ Extension (C7) 5 Normal PT-OP-Q Treatments Start: 09/08/17 10:49 Freq: Status: Active Protocol: Document 12/14/17 11:58 RCC (Rec: 12/15/17 17:50 RCC [email or web address]) Therapeutic Exercises Sitting Exercises seated pectoral stretch Sitting Exercise Name pectoral stretch Side bilateral Equipment Used chair biceps and hammer curls Sitting Exercise Name biceps and hammer curls Side bilateral Resistance 2 lbs Reps/Minutes 2x10 Manual Therapy Treatment Soft Tissue Mobilization 4 Body Location L biceps brachii Mobilization Type Strumming Intensity/Depth Moderate Body Position Sitting 3 Body Location L supraspinatus Mobilization Type Strumming Intensity/Depth Moderate Body Position Sitting 2 Body Location L pectorals Mobilization Type Strumming Intensity/Depth Moderate Body Position Sitting Joint Mobilizations [address] joint Direction lateral, upward rotation Grade III Body Position Sitting Reps/Duration 10 min Other Other Manual Treatments LAKHWINDER MMT, L shoulder ROM PT-OP-R Modalities Start: 09/08/17 10:49 Freq: Status: Active Protocol: Document 11/23/17 15:15 RCC (Rec: 11/23/17 17:27 RCC [email or web address]) Hot Pack/Cold Pack Treatment Cold Pack Location L Shoulder and biceps Patient Position Sitting Treatment Duration (minutes) 10 Patient Tolerance Good Comments wrapped for compression PT-OP-S Aquatic Treatment Start: 12/21/17 15:20 Freq: Status: Active Protocol: Document 01/04/18 11:45 LJ (Rec: 01/04/18 15:07 LJ [email or web address]) Aquatics Treatment Pool Entry/Exit Pool Entry/Exit Method Stairs Assistance Independent Water Walking Sideways Water Level Chest Level Level of Assistance Standby Assistance Verbal Cues Comments L foot ER Forwards Water Level Chest Level Level of Assistance Standby Assistance Comments Verbal cues for alignment Lower Extremity Exercises 2 Details sit<>stand Body Position Sitting Water Level Waist Level Equipment 4 step; wts on ankles Reps/Duration 10-15 full and half sit<>stand Comments verbal and manual cueing for core activationto control descent 1 Details squats Body Position Standing Water Level Chest Level Reps/Duration 10 Comments cues for mm activation sequence Lower Extremity Stretches 2 Details hip flexor 1 Details heel cord, HS Upper Extremity Exercises 7 Details wipers Body Position Sitting Water Level [place] Reps/Duration 20 reps Comments during squat; cueing for core 6 Details ab/ad Body Position Sitting Water Level Chest Level Reps/Duration 20 reps Comments during squats; core cueing 5 Details bicep curl/ ext Body Position Sitting Water Level Chest Level Equipment UE paddles Reps/Duration 10 reps Comments squats; cueing for relax shoulders 4 Details flex/ext Body Position Standing Water Level Chest Level Reps/Duration 20 Comments during walking; cueing for relaxation of shoulders Upper Extremity Stretches 1 Details forward walking arms extended Reps/Duration 2 min using smiles Comments mod cues for scap stabilization Balance 2 Details core stabilization Body Position Standing Water Level Chest Level Comments perturbations; cueing for core PT-OP-T Assessment and Plan Start: 09/08/17 10:49 Freq: Status: Active Protocol: Document 01/04/18 11:45 MARIE (Rec: 01/04/18 15:07 LJ [email or web address]) Physical Therapy Assessment Goals Five Impairment LE strength Cap Cutter Goal (LTG) knee flexion and extension, hip flexion, ER and IR to 4+/5 or greater prior to d/c. Four Impairment UE weakness Senior Living Goal (LTG) Shoulder flexion, elbow flexion and extension at least 4+/5, and shoulder abduction, ER, IR 5/5 with manual muscle testing. 12/14/17: good progress. LTG Duration 8 weeks Three Impairment Impaired gait tolerance Short Term Goal (STG) Pt will be compliant with a walking program 3 days per week for 20 mins. 12/14/17: goal achieved Cap Cutter Goal (LTG) Pt will be compliant with a walking program, 5 days per week for 30 mins. 12/14/17: progressing toward goal. LTG Duration 8 weeks Two Impairment L shoulder ROM Senior Living Goal (LTG) L shoulder flexion and abduction to 150 deg, ER to 70 deg. prior to d/c for functional reaching overhead. 12/14/17: ER to 60 deg, flexion to 145 deg. LTG Duration 8 weeks One Impairment L shoulder pain 9/10 Short Term Goal (STG) 6/10 or less rated L shoulder pain Cap Cutter Goal (LTG) 4/10 or less rated L shoulder pain 12/14/17: pain rated 5/10 L shoulder Progress Towards Goals Progress Towards Goals Progressing Toward Goals Slow Progress due to Activity Tolerance Slow Progress due to Medical Issues Assessment Summary Assessment Pt demonstrates decreased awareness of core muscle activation with all activities . Sit<>stand. g exercises shows 50% LOB in standing with little control on descent. Requires mod manual cueing during core stabilization exercises. No cramping of LEs this treatment. Physical Therapy Plan Frequency and Duration Frequency of Treatment 2x/Week Duration of Treatment 8 weeks Plan of Care Start Date 12/14/17 Plan of Care End Date 02/08/18 Therapeutic Interventions Therapeutic Interventions Aquatic Therapy Balance Training Gait Training Home Exercise Program Joint Mobilizations Manual Therapy Neuromuscular Re-education Patient/Caregiver Education Self-Care/Home Management Soft Tissue Mobilization Taping Therapeutic Activities Therapeutic Exercises Next Visit Focus/Plan Next Note Type Treatment Note Next Visit Plan continue with core stabilization exercises for improved functional mobility and increased balance during gait. Continue step ups for mobility in community and home .
--- NOTE | 2018-01-11 12:43 | PT.OTN ---
Current Diagnoses Type 2 diabetes mellitus without complications (01/11/18) Morbid (severe) obesity due to excess calories (01/11/18) Body mass index (BMI) 50-59.9 , adult (01/11/18) Physical Therapy Treatment Note PT-OP-A Visit Information Start: 09/08/17 10:49 Freq: Status: Active Protocol: Document 01/11/18 12:43 RCC (Rec: 01/14/18 12:51 RCC [email or web address]) Out-Patient Physical Therapy Visit Information Visit Information Visit Type Treatment Note Visit Note KX- G codes @ 28 visits Visit Start Time 12:02 Visit Stop Time 12:43 Total Visit Minutes 41 Visit Number 22 Number of ROOFING FOREMAN Visits 0 Evaluation Information Evaluation Date 09/08/16 PT-OP-B Current Condition Start: 09/08/17 10:49 Freq: Status: Active Protocol: Document 09/08/17 10:30 RCC (Rec: 09/08/17 11:04 RCC [email or web address]) Current Condition History of Current Condition Onset Date years ago Current Complaints L shoulder and impaired ability to walk History of Current Condition Pt is a 71 y/o female presenting to physical therapy with a c/o L shoulder pain, as well as bilateral knee pain and swelling L>R limiting her ability to ambulate long distances. Pt notes that she had PT prior for L shoulder with some results, but now is painful when doing her exercises. She sleeps in a upright chair with an ice pack on the L shoulder due to having pain lying down in bed, normally sleeping 2-3 hrs a night. Pt notes that this sleeping position increases her LE swelling. She does not wear compression stockings because they are expensive and Medicare does not cover them. She is waiting on new orthotics to get new shoes. She has to support her L arm most of the time due to pain is she lets it hang. She had an injection in the shoulder which worked for 4 days, and effects wore off before she even had PT last time around. Pt takes Tylenol for pain, and ice helps sometimes. She reports that her orthopedic surgeon suggested that she not do surgery on her shoulder at this point. Pt is undergoing obesity counseling, and is referred for mobility and physical activity with a goal of weight loss, as well as chronic knee and L shoulder pain. Prior Treatments and Tests MRI L shoulder 04/21/2017: Moderate AC joint degeneration , no nearby rotator cuff tears . Irregular globular signal within the superior labrum suggests superior labral tear (SLAP type I or II pathology). No para labral cyst formation . Treatment Goals Patient/Caregiver Goals 1: decrease shoulder pain, 2: increase knee and LE strength to tolerate walking. Prior Functional Status Baseline Function- ADL's Modified Independent Baseline Function- Mobility Modified Independent Baseline Function- Gait community ambulation without device. Current Functional Impairments (Reported) Functional Limitations- ADL's modified indep. Functional Limitations- Mobility/Gait Indep community gait 2 days per week, with increased pain and fatigue. PT-OP-C Subjective Start: 09/08/17 10:49 Freq: Status: Active Protocol: Document 01/11/18 12:43 RCC (Rec: 01/14/18 12:51 RCC [email or web address]) OP-PT Subjective Patient Comments Patient Comments Pt is enjoying the pool, but still has been unable to sleep laying down flat. Her feet are still hurting with prolonged walks. PT-OP-F Manual Assessment Start: 09/08/17 10:49 Freq: Status: Active Protocol: Document 01/11/18 12:43 RCC (Rec: 01/14/18 12:51 RCC [email or web address]) Manual Assessments Joint Mobility Assessment Joint Mobility Assessment moderate restriction L scapular upward rotation PT-OP-G Mobility & Gait Start: 09/08/17 10:49 Freq: Status: Active Protocol: Document 09/08/17 10:30 RCC (Rec: 09/08/17 13:39 RCC [email or web address]) OP Gait Assessment Comments Gait Comments Mildly antalgic, increased lateral sway, decreased step length on the L. PT-OP-H Neuro Start: 09/08/17 10:49 Freq: Status: Active Protocol: Document 09/08/17 10:30 RCC (Rec: 09/08/17 13:39 RCC [email or web address]) Sensation Evaluation Comments Summary Comments Impaired sensation B toes, intact plantar and dorsal surface of feet. Deep Tendon Reflex & Clonus Assessment Deep Tendon Reflex Bilateral Achilles Deep Tendon Reflex 1+ Diminished Bilateral Patellar Deep Tendon Reflex 1+ Diminished Ankle Clonus Bilateral Clonus Assessment Absent PT-OP-K Range of Motion Start: 09/08/17 10:49 Freq: Status: Active Protocol: Document 12/14/17 11:58 RCC (Rec: 12/15/17 17:50 RCC [email or web address]) Shoulder Goniometric Range of Motion Shoulder Measured in Degrees Left Active Testing Position Sitting Flexion 145 Abduction 160 External Rotation at 0 degrees Abduction 60 PT-OP-L Special Tests Start: 09/08/17 10:49 Freq: Status: Active Protocol: Document 09/08/17 10:30 RCC (Rec: 09/08/17 14:52 RCC [email or web address]) Special Tests Cervical Spine Special Tests Spurling's Test Test Results Negative Shoulder Special Tests Lift-Off Rotator Cuff Test Results negative B Empty Can Test Results positive L, negative R AC Joint Compression Test Results positive L, negative R Anderson Cole Impingement Test Results positive L, negative R Load and Shift Test Results negative B Speed's Biceps Test Results negative B Apprehension Test Test Results negative B Knee Special Tests Eccentric step down test Test Results positive for pain on the L Comments 6 step Varus- 25 Degrees Test Results negative B Varus- 0 Degrees Test Results negative B Valgus- 25 Degrees Test Results negative B Valgus- 0 Degrees Test Results negative B PT-OP-M Strength Start: 09/08/17 10:49 Freq: Status: Active Protocol: Document 12/14/17 11:58 RCC (Rec: 12/15/17 17:50 [facility] [email or web address]) Shoulder Strength Shoulder Manual Muscle Testing Left Flexion 4+ Good+ Abduction (C5) 4 Good External Rotation 4+ Good+ Internal Rotation 5 Normal Elbow/Forearm Strength Elbow and Forearm Manual Muscle Testing Left Flexion (C6) 4+ Good+ Extension (C7) 5 Normal PT-OP-Q Treatments Start: 09/08/17 10:49 Freq: Status: Active Protocol: Document 01/11/18 12:43 RCC (Rec: 01/14/18 12:51 [facility] [email or web address]) Therapeutic Exercises Sitting Exercises scapular retraction Side bilateral Reps/Minutes x15 Comments hold 3 sec, tactile cuing pulleys Sitting Exercise Name flexion and abduction Side bilateral Reps/Minutes 10 reps each Manual Therapy Treatment Soft Tissue Mobilization rhomboids Body Location L rhomboids Mobilization Type Rolling Intensity/Depth Moderate Body Position Sitting 4 Body Location L biceps brachii Mobilization Type Strumming Intensity/Depth Moderate Body Position Sitting 2 Body Location L pectorals Mobilization Type Strumming Intensity/Depth Moderate Body Position Sitting Joint Mobilizations [address] joint Direction lateral, upward rotation Grade III Body Position Sitting Reps/Duration 12 min PT-OP-T Assessment and Plan Start: 09/08/17 10:49 Freq: Status: Active Protocol: Document 01/11/18 12:43 RCC (Rec: 01/14/18 12:51 RCC [email or web address]) Physical Therapy Assessment Assessment Summary Assessment Pt elected to ice at home. Overall, pt continues to have L shoulder pain, with greatest region of discomfort in the anterior upper arm in the biceps region. Pt's scapula on the L is slightly improved with upward rotation, but still noted to be moderately restricted. Soft tissue release improves the scapular motion, with restrictions in the rhomboids and excessive upper trapezius activation. Physical Therapy Plan Frequency and Duration Frequency of Treatment 2x/Week Duration of Treatment 8 weeks Plan of Care Start Date 12/14/17 Plan of Care End Date 02/08/18 Next Visit Focus/Plan Next Note Type Treatment Note Next Visit Plan cont. aquatic PT for core, stability, gait and L shoulder ROM and strength.
--- NOTE | 2018-01-18 13:53 | PT.OTN ---
Current Diagnoses Type 2 diabetes mellitus without complications (01/11/18) Morbid (severe) obesity due to excess calories (01/11/18) Body mass index (BMI) 50-59.9 , adult (01/11/18) Physical Therapy Treatment Note PT-OP-A Visit Information Start: 09/08/17 10:49 Freq: Status: Active Protocol: Document 01/18/18 11:45 LJ (Rec: 01/18/18 13:36 LJ [email or web address]) Out-Patient Physical Therapy Visit Information Visit Information Visit Type Aquatic Treatment Note Visit Start Time 11:45 Visit Stop Time 12:30 Total Visit Minutes 45 Visit Number 23 Number of MOTOR OVERHAULER Visits 1 PT-OP-B Current Condition Start: 09/08/17 10:49 Freq: Status: Active Protocol: Document 09/08/17 10:30 RCC (Rec: 09/08/17 11:04 RCC [email or web address]) Current Condition History of Current Condition Onset Date years ago Current Complaints L shoulder and impaired ability to walk History of Current Condition Pt is a 71 y/o female presenting to physical therapy with a c/o L shoulder pain, as well as bilateral knee pain and swelling L>R limiting her ability to ambulate long distances. Pt notes that she had PT prior for L shoulder with some results, but now is painful when doing her exercises. She sleeps in a upright chair with an ice pack on the L shoulder due to having pain lying down in bed, normally sleeping 2-3 hrs a night. Pt notes that this sleeping position increases her LE swelling. She does not wear compression stockings because they are expensive and Medicare does not cover them. She is waiting on new orthotics to get new shoes. She has to support her L arm most of the time due to pain is she lets it hang. She had an injection in the shoulder which worked for 4 days, and effects wore off before she even had PT last time around. Pt takes Tylenol for pain, and ice helps sometimes. She reports that her orthopedic surgeon suggested that she not do surgery on her shoulder at this point. Pt is undergoing obesity counseling, and is referred for mobility and physical activity with a goal of weight loss, as well as chronic knee and L shoulder pain. Prior Treatments and Tests MRI L shoulder 04/21/2017: Moderate AC joint degeneration , no nearby rotator cuff tears . Irregular globular signal within the superior labrum suggests superior labral tear (SLAP type I or II pathology). No para labral cyst formation . Treatment Goals Patient/Caregiver Goals 1: decrease shoulder pain, 2: increase knee and LE strength to tolerate walking. Prior Functional Status Baseline Function- ADL's Modified Independent Baseline Function- Mobility Modified Independent Baseline Function- Gait community ambulation without device. Current Functional Impairments (Reported) Functional Limitations- ADL's modified indep. Functional Limitations- Mobility/Gait Indep community gait 2 days per week, with increased pain and fatigue. PT-OP-C Subjective Start: 09/08/17 10:49 Freq: Status: Active Protocol: Document 01/18/18 11:45 LJ (Rec: 01/18/18 13:36 LJ [email or web address]) OP-PT Subjective Patient Comments Patient Comments Pt experienced knee pain after walking yeserday. Needed to use her cane to get around the house. Feels pool therapy is helping. PT-OP-F Manual Assessment Start: 09/08/17 10:49 Freq: Status: Active Protocol: Document 01/11/18 12:43 RCC (Rec: 01/14/18 12:51 RCC [email or web address]) Manual Assessments Joint Mobility Assessment Joint Mobility Assessment moderate restriction L scapular upward rotation PT-OP-G Mobility & Gait Start: 09/08/17 10:49 Freq: Status: Active Protocol: Document 09/08/17 10:30 RCC (Rec: 09/08/17 13:39 RCC [email or web address]) OP Gait Assessment Comments Gait Comments Mildly antalgic, increased lateral sway, decreased step length on the L. PT-OP-H Neuro Start: 09/08/17 10:49 Freq: Status: Active Protocol: Document 09/08/17 10:30 RCC (Rec: 09/08/17 13:39 RCC [email or web address]) Sensation Evaluation Comments Summary Comments Impaired sensation B toes, intact plantar and dorsal surface of feet. Deep Tendon Reflex & Clonus Assessment Deep Tendon Reflex Bilateral Achilles Deep Tendon Reflex 1+ Diminished Bilateral Patellar Deep Tendon Reflex 1+ Diminished Ankle Clonus Bilateral Clonus Assessment Absent PT-OP-K Range of Motion Start: 09/08/17 10:49 Freq: Status: Active Protocol: Document 12/14/17 11:58 RCC (Rec: 12/15/17 17:50 RCC [email or web address]) Shoulder Goniometric Range of Motion Shoulder Measured in Degrees Left Active Testing Position Sitting Flexion 145 Abduction 160 External Rotation at 0 degrees Abduction 60 PT-OP-L Special Tests Start: 09/08/17 10:49 Freq: Status: Active Protocol: Document 09/08/17 10:30 RCC (Rec: 09/08/17 14:52 RCC [email or web address]) Special Tests Cervical Spine Special Tests Spurling's Test Test Results Negative Shoulder Special Tests Lift-Off Rotator Cuff Test Results negative B Empty Can Test Results positive L, negative R AC Joint Compression Test Results positive L, negative R Anderson Cole Impingement Test Results positive L, negative R Load and Shift Test Results negative B Speed's Biceps Test Results negative B Apprehension Test Test Results negative B Knee Special Tests Eccentric step down test Test Results positive for pain on the L Comments 6 step Varus- 25 Degrees Test Results negative B Varus- 0 Degrees Test Results negative B Valgus- 25 Degrees Test Results negative B Valgus- 0 Degrees Test Results negative B PT-OP-M Strength Start: 09/08/17 10:49 Freq: Status: Active Protocol: Document 12/14/17 11:58 RCC (Rec: 12/15/17 17:50 RCC [email or web address]) Shoulder Strength Shoulder Manual Muscle Testing Left Flexion 4+ Good+ Abduction (C5) 4 Good External Rotation 4+ Good+ Internal Rotation 5 Normal Elbow/Forearm Strength Elbow and Forearm Manual Muscle Testing Left Flexion (C6) 4+ Good+ Extension (C7) 5 Normal PT-OP-Q Treatments Start: 09/08/17 10:49 Freq: Status: Active Protocol: Document 01/11/18 12:43 RCC (Rec: 01/14/18 12:51 RCC [email or web address]) Therapeutic Exercises Sitting Exercises scapular retraction Side bilateral Reps/Minutes x15 Comments hold 3 sec, tactile cuing pulleys Sitting Exercise Name flexion and abduction Side bilateral Reps/Minutes 10 reps each Manual Therapy Treatment Soft Tissue Mobilization rhomboids Body Location L rhomboids Mobilization Type Rolling Intensity/Depth Moderate Body Position Sitting 4 Body Location L biceps brachii Mobilization Type Strumming Intensity/Depth Moderate Body Position Sitting 2 Body Location L pectorals Mobilization Type Strumming Intensity/Depth Moderate Body Position Sitting Joint Mobilizations [address] joint Direction lateral, upward rotation Grade III Body Position Sitting Reps/Duration 12 min PT-OP-R Modalities Start: 09/08/17 10:49 Freq: Status: Active Protocol: Document 11/23/17 15:15 RCC (Rec: 11/23/17 17:27 RCC [email or web address]) Hot Pack/Cold Pack Treatment Cold Pack Location L Shoulder and biceps Patient Position Sitting Treatment Duration (minutes) 10 Patient Tolerance Good Comments wrapped for compression PT-OP-S Aquatic Treatment Start: 12/21/17 15:20 Freq: Status: Active Protocol: Document 01/18/18 11:00 LJ (Rec: 01/18/18 13:53 LJ [email or web address]) Aquatics Treatment Pool Entry/Exit Pool Entry/Exit Method Stairs Assistance Independent Water Walking Sideways Water Level Chest Level Level of Assistance Standby Assistance Verbal Cues Comments L foot ER Forwards Water Level Chest Level Level of Assistance Standby Assistance Comments Verbal cues for alignment Lower Extremity Exercises 1 Details squats Body Position Standing Water Level Chest Level Reps/Duration 10 Comments cues for mm activation sequence Lower Extremity Stretches 2 Details hip flexor 1 Details heel cord, HS Upper Extremity Exercises 9 Details stretch cords Body Position Standing Reps/Duration 10 bilat Comments ER, IR 8 Details stretch cords Body Position Standing Water Level Chest Level Reps/Duration 10 bilat Comments side standing, twist then extend UEs 7 Details wipers Body Position Standing Water Level Neck Level Reps/Duration 20 reps Comments during squats; core cueing 6 Details ab/ad Body Position Standing Water Level Neck Level Reps/Duration 20 reps Comments during squats; core cueing Upper Extremity Stretches 2 Details stretch cords Body Position Standing Reps/Duration 2 min Comments internal rotators 1 Details forward walking arms extended Reps/Duration 2 min using smiles-thumbs up Comments mod cues for scap stabilization Balance 2 Details core stabilization Body Position Standing Water Level Chest Level Comments perturbations; cueing for core [place] Activities Other Activities bicycling, donkey kicks at wall, jacks, corner double leg lifts Equipment belt Duration 10 min Comments repeated all exercises x 4 Manual Techniques Aquatic Massage left upper traps, scalenes, bicep :supine on yoga mat; bilat LEs for muscle cramping rolling with tennis ball on wall in rhomboid area PT-OP-T Assessment and Plan Start: 09/08/17 10:49 Freq: Status: Active Protocol: Document 01/18/18 11:00 MARIE (Rec: 01/18/18 13:53 LJ [email or web address]) Physical Therapy Assessment Goals Five Impairment LE strength Small Battery Plate Assembler Goal (LTG) knee flexion and extension, hip flexion, ER and IR to 4+/5 or greater prior to d/c. Four Impairment UE weakness Retirement Goal (LTG) Shoulder flexion, elbow flexion and extension at least 4+/5, and shoulder abduction, ER, IR 5/5 with manual muscle testing. 12/14/17: good progress. LTG Duration 8 weeks Three Impairment Impaired gait tolerance Short Term Goal (STG) Pt will be compliant with a walking program 3 days per week for 20 mins. 12/14/17: goal achieved Small Battery Plate Assembler Goal (LTG) Pt will be compliant with a walking program, 5 days per week for 30 mins. 12/14/17: progressing toward goal. LTG Duration 8 weeks Two Impairment L shoulder ROM Small Battery Plate Assembler Goal (LTG) L shoulder flexion and abduction to 150 deg, ER to 70 deg. prior to d/c for functional reaching overhead. 12/14/17: ER to 60 deg, flexion to 145 deg. LTG Duration 8 weeks One Impairment L shoulder pain 9/10 Short Term Goal (STG) 6/10 or less rated L shoulder pain Retirement Goal (LTG) 4/10 or less rated L shoulder pain 12/14/17: pain rated 5/10 L shoulder Assessment Summary Assessment Pt tolerated stretching and strengthening exercises w/ stretch cords as well as rolling with ball at wall. Required mod cueing for activation of core mms during all exercises. Stretch at end of tx for LE cramping. Physical Therapy Plan Frequency and Duration Frequency of Treatment 2x/Week Duration of Treatment 8 weeks Plan of Care Start Date 12/14/17 Plan of Care End Date 02/08/18 Therapeutic Interventions Therapeutic Interventions Aquatic Therapy Balance Training Gait Training Home Exercise Program Joint Mobilizations Manual Therapy Neuromuscular Re-education Patient/Caregiver Education Self-Care/Home Management Soft Tissue Mobilization Taping Therapeutic Activities Therapeutic Exercises Next Visit Focus/Plan Next Note Type Treatment Note Next Visit Plan cont. aquatic PT for core, stability, gait and L shoulder ROM and strength.
--- NOTE | 2018-01-25 14:58 | PT.OTN ---
Current Diagnoses Type 2 diabetes mellitus without complications (01/25/18) Morbid (severe) obesity due to excess calories (01/25/18) Body mass index (BMI) 50-59.9 , adult (01/25/18) Physical Therapy Treatment Note PT-OP-A Visit Information Start: 09/08/17 10:49 Freq: Status: Active Protocol: Document 01/25/18 11:45 LJ (Rec: 01/25/18 14:58 LJ [email or web address]) Out-Patient Physical Therapy Visit Information Visit Information Visit Type Aquatic Treatment Note Visit Start Time 11:45 Visit Stop Time 12:30 Total Visit Minutes 45 Visit Number 25 Number of TRANSPORTATION ENGINEERING TECHNICIAN Visits 2 PT-OP-B Current Condition Start: 09/08/17 10:49 Freq: Status: Active Protocol: Document 09/08/17 10:30 RCC (Rec: 09/08/17 11:04 RCC [email or web address]) Current Condition History of Current Condition Onset Date years ago Current Complaints L shoulder and impaired ability to walk History of Current Condition Pt is a 71 y/o female presenting to physical therapy with a c/o L shoulder pain, as well as bilateral knee pain and swelling L>R limiting her ability to ambulate long distances. Pt notes that she had PT prior for L shoulder with some results, but now is painful when doing her exercises. She sleeps in a upright chair with an ice pack on the L shoulder due to having pain lying down in bed, normally sleeping 2-3 hrs a night. Pt notes that this sleeping position increases her LE swelling. She does not wear compression stockings because they are expensive and Medicare does not cover them. She is waiting on new orthotics to get new shoes. She has to support her L arm most of the time due to pain is she lets it hang. She had an injection in the shoulder which worked for 4 days, and effects wore off before she even had PT last time around. Pt takes Tylenol for pain, and ice helps sometimes. She reports that her orthopedic surgeon suggested that she not do surgery on her shoulder at this point. Pt is undergoing obesity counseling, and is referred for mobility and physical activity with a goal of weight loss, as well as chronic knee and L shoulder pain. Prior Treatments and Tests MRI L shoulder 04/21/2017: Moderate AC joint degeneration , no nearby rotator cuff tears . Irregular globular signal within the superior labrum suggests superior labral tear (SLAP type I or II pathology). No para labral cyst formation . Treatment Goals Patient/Caregiver Goals 1: decrease shoulder pain, 2: increase knee and LE strength to tolerate walking. Prior Functional Status Baseline Function- ADL's Modified Independent Baseline Function- Mobility Modified Independent Baseline Function- Gait community ambulation without device. Current Functional Impairments (Reported) Functional Limitations- ADL's modified indep. Functional Limitations- Mobility/Gait Indep community gait 2 days per week, with increased pain and fatigue. PT-OP-C Subjective Start: 09/08/17 10:49 Freq: Status: Active Protocol: Document 01/25/18 11:45 LJ (Rec: 01/25/18 14:58 LJ [email or web address]) OP-PT Subjective Patient Comments Patient Comments Pt experiencing increased pain post manual therapy at last clinic PT visit and self massage. PT-OP-F Manual Assessment Start: 09/08/17 10:49 Freq: Status: Active Protocol: Document 01/11/18 12:43 RCC (Rec: 01/14/18 12:51 RCC [email or web address]) Manual Assessments Joint Mobility Assessment Joint Mobility Assessment moderate restriction L scapular upward rotation PT-OP-G Mobility & Gait Start: 09/08/17 10:49 Freq: Status: Active Protocol: Document 09/08/17 10:30 RCC (Rec: 09/08/17 13:39 RCC [email or web address]) OP Gait Assessment Comments Gait Comments Mildly antalgic, increased lateral sway, decreased step length on the L. PT-OP-H Neuro Start: 09/08/17 10:49 Freq: Status: Active Protocol: Document 09/08/17 10:30 RCC (Rec: 09/08/17 13:39 RCC [email or web address]) Sensation Evaluation Comments Summary Comments Impaired sensation B toes, intact plantar and dorsal surface of feet. Deep Tendon Reflex & Clonus Assessment Deep Tendon Reflex Bilateral Achilles Deep Tendon Reflex 1+ Diminished Bilateral Patellar Deep Tendon Reflex 1+ Diminished Ankle Clonus Bilateral Clonus Assessment Absent PT-OP-K Range of Motion Start: 09/08/17 10:49 Freq: Status: Active Protocol: Document 12/14/17 11:58 RCC (Rec: 12/15/17 17:50 RCC [email or web address]) Shoulder Goniometric Range of Motion Shoulder Measured in Degrees Left Active Testing Position Sitting Flexion 145 Abduction 160 External Rotation at 0 degrees Abduction 60 PT-OP-L Special Tests Start: 09/08/17 10:49 Freq: Status: Active Protocol: Document 09/08/17 10:30 RCC (Rec: 09/08/17 14:52 RCC [email or web address]) Special Tests Cervical Spine Special Tests Spurling's Test Test Results Negative Shoulder Special Tests Lift-Off Rotator Cuff Test Results negative B Empty Can Test Results positive L, negative R AC Joint Compression Test Results positive L, negative R Anderson Cole Impingement Test Results positive L, negative R Load and Shift Test Results negative B Speed's Biceps Test Results negative B Apprehension Test Test Results negative B Knee Special Tests Eccentric step down test Test Results positive for pain on the L Comments 6 step Varus- 25 Degrees Test Results negative B Varus- 0 Degrees Test Results negative B Valgus- 25 Degrees Test Results negative B Valgus- 0 Degrees Test Results negative B PT-OP-M Strength Start: 09/08/17 10:49 Freq: Status: Active Protocol: Document 12/14/17 11:58 RCC (Rec: 12/15/17 17:50 RCC [email or web address]) Shoulder Strength Shoulder Manual Muscle Testing Left Flexion 4+ Good+ Abduction (C5) 4 Good External Rotation 4+ Good+ Internal Rotation 5 Normal Elbow/Forearm Strength Elbow and Forearm Manual Muscle Testing Left Flexion (C6) 4+ Good+ Extension (C7) 5 Normal PT-OP-Q Treatments Start: 09/08/17 10:49 Freq: Status: Active Protocol: Document 01/11/18 12:43 RCC (Rec: 01/14/18 12:51 RCC [email or web address]) Therapeutic Exercises Sitting Exercises scapular retraction Side bilateral Reps/Minutes x15 Comments hold 3 sec, tactile cuing pulleys Sitting Exercise Name flexion and abduction Side bilateral Reps/Minutes 10 reps each Manual Therapy Treatment Soft Tissue Mobilization rhomboids Body Location L rhomboids Mobilization Type Rolling Intensity/Depth Moderate Body Position Sitting 4 Body Location L biceps brachii Mobilization Type Strumming Intensity/Depth Moderate Body Position Sitting 2 Body Location L pectorals Mobilization Type Strumming Intensity/Depth Moderate Body Position Sitting Joint Mobilizations [address] joint Direction lateral, upward rotation Grade III Body Position Sitting Reps/Duration 12 min PT-OP-R Modalities Start: 09/08/17 10:49 Freq: Status: Active Protocol: Document 11/23/17 15:15 RCC (Rec: 11/23/17 17:27 RCC [email or web address]) Hot Pack/Cold Pack Treatment Cold Pack Location L Shoulder and biceps Patient Position Sitting Treatment Duration (minutes) 10 Patient Tolerance Good Comments wrapped for compression PT-OP-S Aquatic Treatment Start: 12/21/17 15:20 Freq: Status: Active Protocol: Document 01/25/18 11:45 LJ (Rec: 01/25/18 14:58 LJ [email or web address]) Aquatics Treatment Pool Entry/Exit Pool Entry/Exit Method Stairs Assistance Independent Water Walking Sideways Water Level Chest Level Level of Assistance Standby Assistance Verbal Cues Comments L foot ER Forwards Water Level Chest Level Level of Assistance Standby Assistance Comments Verbal cues for alignment Upper Extremity Stretches 4 Details overhead stretch Body Position Supine Reps/Duration on yoga mat holding blue lower [place]wha float 3 Details pendulum Body Position Standing Water Level Neck Level Reps/Duration #1 wt on LUE 1 Details forward walking arms extended Manual Techniques Bad Ragaz supine with neck, waist, and leg floats. swinging for LUE stretching Aquatic Massage left upper traps, rhomboids in supine float. Scap assisted ROM PT-OP-T Assessment and Plan Start: 09/08/17 10:49 Freq: Status: Active Protocol: Document 01/25/18 11:45 (Rec: 01/25/18 14:58 [email or web address]) Physical Therapy Assessment Goals Five Impairment LE strength Group Home Goal (LTG) knee flexion and extension, hip flexion, ER and IR to 4+/5 or greater prior to d/c. Four Impairment UE weakness Group Home Goal (LTG) Shoulder flexion, elbow flexion and extension at least 4+/5, and shoulder abduction, ER, IR 5/5 with manual muscle testing. 12/14/17: good progress. LTG Duration 8 weeks Three Impairment Impaired gait tolerance Short Term Goal (STG) Pt will be compliant with a walking program 3 days per week for 20 mins. 12/14/17: goal achieved School Janitor Goal (LTG) Pt will be compliant with a walking program, 5 days per week for 30 mins. 12/14/17: progressing toward goal. LTG Duration 8 weeks Two Impairment L shoulder ROM School Janitor Goal (LTG) L shoulder flexion and abduction to 150 deg, ER to 70 deg. prior to d/c for functional reaching overhead. 12/14/17: ER to 60 deg, flexion to 145 deg. LTG Duration 8 weeks One Impairment L shoulder pain 9/10 Short Term Goal (STG) 6/10 or less rated L shoulder pain Group Home Goal (LTG) 4/10 or less rated L shoulder pain 12/14/17: pain rated 5/10 L shoulder Progress Towards Goals Progress Towards Goals Progressing Toward Goals Slow Progress due to Activity Tolerance Slow Progress due to Medical Issues Assessment Summary Assessment Pt able to abduct LUE an additional ~15 degrees after treatment. Tolerated Bad Ragaz well and was able to decrease guarding to allow stretch. Physical Therapy Plan Frequency and Duration Frequency of Treatment 2x/Week Duration of Treatment 8 weeks Plan of Care Start Date 12/14/17 Plan of Care End Date 02/08/18 Therapeutic Interventions Therapeutic Interventions Aquatic Therapy Balance Training Gait Training Home Exercise Program Joint Mobilizations Manual Therapy Neuromuscular Re-education Patient/Caregiver Education Self-Care/Home Management Soft Tissue Mobilization Taping Therapeutic Activities Therapeutic Exercises Next Visit Focus/Plan Next Note Type Treatment Note Next Visit Plan cont. aquatic PT for core, stability, gait and L shoulder ROM and strength.
--- NOTE | 2018-02-01 14:34 | PT.OTN ---
Current Diagnoses Type 2 diabetes mellitus without complications (02/01/18) Morbid (severe) obesity due to excess calories (02/01/18) Body mass index (BMI) 50-59.9 , adult (02/01/18) Physical Therapy Treatment Note PT-OP-A Visit Information Start: 09/08/17 10:49 Freq: Status: Active Protocol: Document 02/01/18 11:45 LJ (Rec: 02/01/18 14:34 LJ [email or web address]) Out-Patient Physical Therapy Visit Information Visit Information Visit Type Aquatic Treatment Note Visit Note KX-G codes @28 visits Visit Start Time 11:45 Visit Stop Time 12:30 Total Visit Minutes 45 Visit Number 26 Number of BIOMEDICAL ENGINEERING PROFESSOR Visits 3 PT-OP-B Current Condition Start: 09/08/17 10:49 Freq: Status: Active Protocol: Document 09/08/17 10:30 RCC (Rec: 09/08/17 11:04 RCC [email or web address]) Current Condition History of Current Condition Onset Date years ago Current Complaints L shoulder and impaired ability to walk History of Current Condition Pt is a 71 y/o female presenting to physical therapy with a c/o L shoulder pain, as well as bilateral knee pain and swelling L>R limiting her ability to ambulate long distances. Pt notes that she had PT prior for L shoulder with some results, but now is painful when doing her exercises. She sleeps in a upright chair with an ice pack on the L shoulder due to having pain lying down in bed, normally sleeping 2-3 hrs a night. Pt notes that this sleeping position increases her LE swelling. She does not wear compression stockings because they are expensive and Medicare does not cover them. She is waiting on new orthotics to get new shoes. She has to support her L arm most of the time due to pain is she lets it hang. She had an injection in the shoulder which worked for 4 days, and effects wore off before she even had PT last time around. Pt takes Tylenol for pain, and ice helps sometimes. She reports that her orthopedic surgeon suggested that she not do surgery on her shoulder at this point. Pt is undergoing obesity counseling, and is referred for mobility and physical activity with a goal of weight loss, as well as chronic knee and L shoulder pain. Prior Treatments and Tests MRI L shoulder 04/21/2017: Moderate AC joint degeneration , no nearby rotator cuff tears . Irregular globular signal within the superior labrum suggests superior labral tear (SLAP type I or II pathology). No para labral cyst formation . Treatment Goals Patient/Caregiver Goals 1: decrease shoulder pain, 2: increase knee and LE strength to tolerate walking. Prior Functional Status Baseline Function- ADL's Modified Independent Baseline Function- Mobility Modified Independent Baseline Function- Gait community ambulation without device. Current Functional Impairments (Reported) Functional Limitations- ADL's modified indep. Functional Limitations- Mobility/Gait Indep community gait 2 days per week, with increased pain and fatigue. PT-OP-C Subjective Start: 09/08/17 10:49 Freq: Status: Active Protocol: Document 02/01/18 11:45 LJ (Rec: 02/01/18 14:34 LJ [email or web address]) OP-PT Subjective Patient Comments Patient Comments Pt reoprts she has much less pain in LUE for the past few days. Improved ablilty to perform ADLs PT-OP-F Manual Assessment Start: 09/08/17 10:49 Freq: Status: Active Protocol: Document 01/11/18 12:43 RCC (Rec: 01/14/18 12:51 RCC [email or web address]) Manual Assessments Joint Mobility Assessment Joint Mobility Assessment moderate restriction L scapular upward rotation PT-OP-G Mobility & Gait Start: 09/08/17 10:49 Freq: Status: Active Protocol: Document 09/08/17 10:30 RCC (Rec: 09/08/17 13:39 RCC [email or web address]) OP Gait Assessment Comments Gait Comments Mildly antalgic, increased lateral sway, decreased step length on the L. PT-OP-H Neuro Start: 09/08/17 10:49 Freq: Status: Active Protocol: Document 09/08/17 10:30 RCC (Rec: 09/08/17 13:39 RCC [email or web address]) Sensation Evaluation Comments Summary Comments Impaired sensation B toes, intact plantar and dorsal surface of feet. Deep Tendon Reflex & Clonus Assessment Deep Tendon Reflex Bilateral Achilles Deep Tendon Reflex 1+ Diminished Bilateral Patellar Deep Tendon Reflex 1+ Diminished Ankle Clonus Bilateral Clonus Assessment Absent PT-OP-K Range of Motion Start: 09/08/17 10:49 Freq: Status: Active Protocol: Document 12/14/17 11:58 RCC (Rec: 12/15/17 17:50 RCC [email or web address]) Shoulder Goniometric Range of Motion Shoulder Measured in Degrees Left Active Testing Position Sitting Flexion 145 Abduction 160 External Rotation at 0 degrees Abduction 60 PT-OP-L Special Tests Start: 09/08/17 10:49 Freq: Status: Active Protocol: Document 09/08/17 10:30 RCC (Rec: 09/08/17 14:52 RCC [email or web address]) Special Tests Cervical Spine Special Tests Spurling's Test Test Results Negative Shoulder Special Tests Lift-Off Rotator Cuff Test Results negative B Empty Can Test Results positive L, negative R AC Joint Compression Test Results positive L, negative R Anderson Cole Impingement Test Results positive L, negative R Load and Shift Test Results negative B Speed's Biceps Test Results negative B Apprehension Test Test Results negative B Knee Special Tests Eccentric step down test Test Results positive for pain on the L Comments 6 step Varus- 25 Degrees Test Results negative B Varus- 0 Degrees Test Results negative B Valgus- 25 Degrees Test Results negative B Valgus- 0 Degrees Test Results negative B PT-OP-M Strength Start: 09/08/17 10:49 Freq: Status: Active Protocol: Document 12/14/17 11:58 RCC (Rec: 12/15/17 17:50 RCC [email or web address]) Shoulder Strength Shoulder Manual Muscle Testing Left Flexion 4+ Good+ Abduction (C5) 4 Good External Rotation 4+ Good+ Internal Rotation 5 Normal Elbow/Forearm Strength Elbow and Forearm Manual Muscle Testing Left Flexion (C6) 4+ Good+ Extension (C7) 5 Normal PT-OP-Q Treatments Start: 09/08/17 10:49 Freq: Status: Active Protocol: Document 01/11/18 12:43 RCC (Rec: 01/14/18 12:51 RCC [email or web address]) Therapeutic Exercises Sitting Exercises scapular retraction Side bilateral Reps/Minutes x15 Comments hold 3 sec, tactile cuing pulleys Sitting Exercise Name flexion and abduction Side bilateral Reps/Minutes 10 reps each Manual Therapy Treatment Soft Tissue Mobilization rhomboids Body Location L rhomboids Mobilization Type Rolling Intensity/Depth Moderate Body Position Sitting 4 Body Location L biceps brachii Mobilization Type Strumming Intensity/Depth Moderate Body Position Sitting 2 Body Location L pectorals Mobilization Type Strumming Intensity/Depth Moderate Body Position Sitting Joint Mobilizations [address] joint Direction lateral, upward rotation Grade III Body Position Sitting Reps/Duration 12 min PT-OP-R Modalities Start: 09/08/17 10:49 Freq: Status: Active Protocol: Document 11/23/17 15:15 RCC (Rec: 11/23/17 17:27 RCC [email or web address]) Hot Pack/Cold Pack Treatment Cold Pack Location L Shoulder and biceps Patient Position Sitting Treatment Duration (minutes) 10 Patient Tolerance Good Comments wrapped for compression PT-OP-S Aquatic Treatment Start: 12/21/17 15:20 Freq: Status: Active Protocol: Document 02/01/18 11:45 (Rec: 02/01/18 14:34 LJ [email or web address]) Aquatics Treatment Pool Entry/Exit Pool Entry/Exit Method Stairs Assistance Independent Water Walking Sideways Water Level Chest Level Level of Assistance Standby Assistance Comments no L foot ER Forwards Water Level Chest Level Comments Verbal cues for alignment Upper Extremity Exercises 7 Details wipers Body Position Sitting Water Level [place] Reps/Duration 20 reps Comments standing 6 Details ab/ad Body Position Standing Water Level Neck Level Reps/Duration 20 reps Comments standing 5 Details bicep curl/ ext Body Position Standing Water Level Chest Level Reps/Duration 10 reps 4 Details flex/ext Body Position Standing Water Level Chest Level Reps/Duration 20 Comments during walking; cueing for relaxation of shoulders Upper Extremity Stretches 3 Details pendulum Body Position Standing Water Level Neck Level Reps/Duration #1 wt on LUE 1 Details forward walking arms extended Water Level Chest Level Equipment Small Noodle Comments noodle behind back, modified hand position w/smiles Manual Techniques Bad Ragaz supine with neck, waist, and leg floats. swinging for UE stretching Aquatic Massage left upper traps, rhomboids in supine float. Scap assisted ROM PT-OP-T Assessment and Plan Start: 09/08/17 10:49 Freq: Status: Active Protocol: Document 02/01/18 11:45 (Rec: 02/01/18 14:34 [email or web address]) Physical Therapy Assessment Goals Five Impairment LE strength Snf Goal (LTG) knee flexion and extension, hip flexion, ER and IR to 4+/5 or greater prior to d/c. Four Impairment UE weakness Knitting Machine Operator Automatic Goal (LTG) Shoulder flexion, elbow flexion and extension at least 4+/5, and shoulder abduction, ER, IR 5/5 with manual muscle testing. 12/14/17: good progress. LTG Duration 8 weeks Three Impairment Impaired gait tolerance Short Term Goal (STG) Pt will be compliant with a walking program 3 days per week for 20 mins. 12/14/17: goal achieved Knitting Machine Operator Automatic Goal (LTG) Pt will be compliant with a walking program, 5 days per week for 30 mins. 12/14/17: progressing toward goal. LTG Duration 8 weeks Two Impairment L shoulder ROM Knitting Machine Operator Automatic Goal (LTG) L shoulder flexion and abduction to 150 deg, ER to 70 deg. prior to d/c for functional reaching overhead. 12/14/17: ER to 60 deg, flexion to 145 deg. LTG Duration 8 weeks One Impairment L shoulder pain 9/10 Short Term Goal (STG) 6/10 or less rated L shoulder pain Snf Goal (LTG) 4/10 or less rated L shoulder pain 12/14/17: pain rated 5/10 L shoulder Progress Towards Goals Progress Towards Goals Progressing Toward Goals Slow Progress due to Activity Tolerance Slow Progress due to Medical Issues Assessment Summary Assessment Pt able to increase pain free flex/ext, abd ROM significantly. Also able to reach behind back and touch fingers. Improved ADLs. Physical Therapy Plan Frequency and Duration Frequency of Treatment 2x/Week Duration of Treatment 8 weeks Plan of Care Start Date 12/14/17 Plan of Care End Date 02/08/18 Therapeutic Interventions Therapeutic Interventions Aquatic Therapy Balance Training Gait Training Home Exercise Program Joint Mobilizations Manual Therapy Neuromuscular Re-education Patient/Caregiver Education Self-Care/Home Management Soft Tissue Mobilization Taping Therapeutic Activities Therapeutic Exercises Next Visit Focus/Plan Next Note Type Treatment Note Next Visit Plan Continue aquatic therapy. Next session perform supine core strengthening using Bad Ragaz. Continue with stretching prior to initiating resistance training.
--- NOTE | 2018-02-08 15:40 | PT.OTN ---
Current Diagnoses Type 2 diabetes mellitus without complications (02/08/18) Morbid (severe) obesity due to excess calories (02/08/18) Body mass index (BMI) 50-59.9 , adult (02/08/18) Physical Therapy Treatment Note PT-OP-A Visit Information Start: 09/08/17 10:49 Freq: Status: Active Protocol: Document 02/08/18 11:45 LJ (Rec: 02/08/18 15:40 LJ [email or web address]) Out-Patient Physical Therapy Visit Information Visit Information Visit Type Aquatic Treatment Note Visit Note KX-G codes @28 visits Visit Start Time 11:45 Visit Stop Time 12:30 Total Visit Minutes 45 Visit Number 27 Number of BROACH OPERATOR Visits 4 PT-OP-B Current Condition Start: 09/08/17 10:49 Freq: Status: Active Protocol: Document 09/08/17 10:30 RCC (Rec: 09/08/17 11:04 RCC [email or web address]) Current Condition History of Current Condition Onset Date years ago Current Complaints L shoulder and impaired ability to walk History of Current Condition Pt is a 71 y/o female presenting to physical therapy with a c/o L shoulder pain, as well as bilateral knee pain and swelling L>R limiting her ability to ambulate long distances. Pt notes that she had PT prior for L shoulder with some results, but now is painful when doing her exercises. She sleeps in a upright chair with an ice pack on the L shoulder due to having pain lying down in bed, normally sleeping 2-3 hrs a night. Pt notes that this sleeping position increases her LE swelling. She does not wear compression stockings because they are expensive and Medicare does not cover them. She is waiting on new orthotics to get new shoes. She has to support her L arm most of the time due to pain is she lets it hang. She had an injection in the shoulder which worked for 4 days, and effects wore off before she even had PT last time around. Pt takes Tylenol for pain, and ice helps sometimes. She reports that her orthopedic surgeon suggested that she not do surgery on her shoulder at this point. Pt is undergoing obesity counseling, and is referred for mobility and physical activity with a goal of weight loss, as well as chronic knee and L shoulder pain. Prior Treatments and Tests MRI L shoulder 04/21/2017: Moderate AC joint degeneration , no nearby rotator cuff tears . Irregular globular signal within the superior labrum suggests superior labral tear (SLAP type I or II pathology). No para labral cyst formation . Treatment Goals Patient/Caregiver Goals 1: decrease shoulder pain, 2: increase knee and LE strength to tolerate walking. Prior Functional Status Baseline Function- ADL's Modified Independent Baseline Function- Mobility Modified Independent Baseline Function- Gait community ambulation without device. Current Functional Impairments (Reported) Functional Limitations- ADL's modified indep. Functional Limitations- Mobility/Gait Indep community gait 2 days per week, with increased pain and fatigue. PT-OP-C Subjective Start: 09/08/17 10:49 Freq: Status: Active Protocol: Document 02/08/18 11:45 LJ (Rec: 02/08/18 15:40 LJ [email or web address]) OP-PT Subjective Patient Comments Patient Comments Pt reports huge improvement in L shoulder ROM and decrease in pain to only bicep area. Pt arrived 15 min early and began walking. Continues to self massage on occasion. PT-OP-F Manual Assessment Start: 09/08/17 10:49 Freq: Status: Active Protocol: Document 01/11/18 12:43 RCC (Rec: 01/14/18 12:51 RCC [email or web address]) Manual Assessments Joint Mobility Assessment Joint Mobility Assessment moderate restriction L scapular upward rotation PT-OP-G Mobility & Gait Start: 09/08/17 10:49 Freq: Status: Active Protocol: Document 09/08/17 10:30 RCC (Rec: 09/08/17 13:39 RCC [email or web address]) OP Gait Assessment Comments Gait Comments Mildly antalgic, increased lateral sway, decreased step length on the L. PT-OP-H Neuro Start: 09/08/17 10:49 Freq: Status: Active Protocol: Document 09/08/17 10:30 RCC (Rec: 09/08/17 13:39 RCC [email or web address]) Sensation Evaluation Comments Summary Comments Impaired sensation B toes, intact plantar and dorsal surface of feet. Deep Tendon Reflex & Clonus Assessment Deep Tendon Reflex Bilateral Achilles Deep Tendon Reflex 1+ Diminished Bilateral Patellar Deep Tendon Reflex 1+ Diminished Ankle Clonus Bilateral Clonus Assessment Absent PT-OP-K Range of Motion Start: 09/08/17 10:49 Freq: Status: Active Protocol: Document 12/14/17 11:58 RCC (Rec: 12/15/17 17:50 RCC [email or web address]) Shoulder Goniometric Range of Motion Shoulder Measured in Degrees Left Active Testing Position Sitting Flexion 145 Abduction 160 External Rotation at 0 degrees Abduction 60 PT-OP-L Special Tests Start: 09/08/17 10:49 Freq: Status: Active Protocol: Document 09/08/17 10:30 RCC (Rec: 09/08/17 14:52 RCC [email or web address]) Special Tests Cervical Spine Special Tests Spurling's Test Test Results Negative Shoulder Special Tests Lift-Off Rotator Cuff Test Results negative B Empty Can Test Results positive L, negative R AC Joint Compression Test Results positive L, negative R Anderson Cole Impingement Test Results positive L, negative R Load and Shift Test Results negative B Speed's Biceps Test Results negative B Apprehension Test Test Results negative B Knee Special Tests Eccentric step down test Test Results positive for pain on the L Comments 6 step Varus- 25 Degrees Test Results negative B Varus- 0 Degrees Test Results negative B Valgus- 25 Degrees Test Results negative B Valgus- 0 Degrees Test Results negative B PT-OP-M Strength Start: 09/08/17 10:49 Freq: Status: Active Protocol: Document 12/14/17 11:58 RCC (Rec: 12/15/17 17:50 RCC [email or web address]) Shoulder Strength Shoulder Manual Muscle Testing Left Flexion 4+ Good+ Abduction (C5) 4 Good External Rotation 4+ Good+ Internal Rotation 5 Normal Elbow/Forearm Strength Elbow and Forearm Manual Muscle Testing Left Flexion (C6) 4+ Good+ Extension (C7) 5 Normal PT-OP-Q Treatments Start: 09/08/17 10:49 Freq: Status: Active Protocol: Document 01/11/18 12:43 RCC (Rec: 01/14/18 12:51 RCC [email or web address]) Therapeutic Exercises Sitting Exercises scapular retraction Side bilateral Reps/Minutes x15 Comments hold 3 sec, tactile cuing pulleys Sitting Exercise Name flexion and abduction Side bilateral Reps/Minutes 10 reps each Manual Therapy Treatment Soft Tissue Mobilization rhomboids Body Location L rhomboids Mobilization Type Rolling Intensity/Depth Moderate Body Position Sitting 4 Body Location L biceps brachii Mobilization Type Strumming Intensity/Depth Moderate Body Position Sitting 2 Body Location L pectorals Mobilization Type Strumming Intensity/Depth Moderate Body Position Sitting Joint Mobilizations [address] joint Direction lateral, upward rotation Grade III Body Position Sitting Reps/Duration 12 min PT-OP-R Modalities Start: 09/08/17 10:49 Freq: Status: Active Protocol: Document 11/23/17 15:15 RCC (Rec: 11/23/17 17:27 RCC [email or web address]) Hot Pack/Cold Pack Treatment Cold Pack Location L Shoulder and biceps Patient Position Sitting Treatment Duration (minutes) 10 Patient Tolerance Good Comments wrapped for compression PT-OP-S Aquatic Treatment Start: 12/21/17 15:20 Freq: Status: Active Protocol: Document 02/08/18 11:45 LJ (Rec: 02/08/18 15:40 LJ [email or web address]) Aquatics Treatment Pool Entry/Exit Pool Entry/Exit Method Stairs Assistance Independent Water Walking Sideways Water Level Chest Level Level of Assistance Standby Assistance Comments no L foot ER Forwards Water Level Chest Level Comments Verbal cues for alignment Lower Extremity Exercises 1 Details squats Body Position Standing Water Level Chest Level Reps/Duration 10 Comments cues for mm activation sequence Lower Extremity Stretches 1 Details heel cord, HS Upper Extremity Exercises 7 Details wipers Body Position Sitting Water Level [place] Reps/Duration 20 reps Comments standing 6 Details ab/ad Body Position Standing Water Level Neck Level Reps/Duration 20 reps Comments standing 5 Details bicep curl/ ext Body Position Standing Water Level Chest Level Reps/Duration 10 reps 4 Details flex/ext Body Position Standing Water Level Chest Level Reps/Duration 20 Comments during walking; cueing for relaxation of shoulders Upper Extremity Stretches IR/ER-horizontal and vertical Reps/Duration 5 horiz; 10 vert 3 Details pendulum Body Position Standing Water Level Neck Level Reps/Duration #1 wt on LUE 1 Details forward walking arms extended Water Level Chest Level Equipment Small Noodle Comments noodle behind back, modified hand position w/smiles Manual Techniques Aquatic Massage standing; romboids and UT. Scap assisted ROM PT-OP-T Assessment and Plan Start: 09/08/17 10:49 Freq: Status: Active Protocol: Document 02/08/18 11:45 LJ (Rec: 02/08/18 15:40 LJ [email or web address]) Physical Therapy Assessment Goals Five Impairment LE strength Nursing Home Goal (LTG) knee flexion and extension, hip flexion, ER and IR to 4+/5 or greater prior to d/c. Four Impairment UE weakness Nursing Home Goal (LTG) Shoulder flexion, elbow flexion and extension at least 4+/5, and shoulder abduction, ER, IR 5/5 with manual muscle testing. 12/14/17: good progress. LTG Duration 8 weeks Three Impairment Impaired gait tolerance Short Term Goal (STG) Pt will be compliant with a walking program 3 days per week for 20 mins. 12/14/17: goal achieved Mathematics Instructor Goal (LTG) Pt will be compliant with a walking program, 5 days per week for 30 mins. 12/14/17: progressing toward goal. LTG Duration 8 weeks Two Impairment L shoulder ROM Nursing Home Goal (LTG) L shoulder flexion and abduction to 150 deg, ER to 70 deg. prior to d/c for functional reaching overhead. 12/14/17: ER to 60 deg, flexion to 145 deg. LTG Duration 8 weeks One Impairment L shoulder pain 9/10 Short Term Goal (STG) 6/10 or less rated L shoulder pain Nursing Home Goal (LTG) 4/10 or less rated L shoulder pain 12/14/17: pain rated 5/10 L shoulder Progress Towards Goals Progress Towards Goals Progressing Toward Goals Slow Progress due to Activity Tolerance Slow Progress due to Medical Issues Assessment Summary Assessment Pt near normal ROM LUE. Slight pain in bicep mm belly on occasion and with abducted position. Pt experienced RLE mm cramping in deep water. Physical Therapy Plan Frequency and Duration Frequency of Treatment 2x/Week Duration of Treatment 8 weeks Plan of Care Start Date 12/14/17 Plan of Care End Date 02/08/18 Therapeutic Interventions Therapeutic Interventions Aquatic Therapy Balance Training Gait Training Home Exercise Program Joint Mobilizations Manual Therapy Neuromuscular Re-education Patient/Caregiver Education Self-Care/Home Management Soft Tissue Mobilization Taping Therapeutic Activities Therapeutic Exercises Discharge Physical Therapy Discharge Reasons Patient Request Next Visit Focus/Plan Next Note Type Treatment Note Next Visit Plan Stretch LEs prior to entering pool d/t increased cramping this session. Attempt deep water activities in beginning of therapy to avoid fatiguing LEs causing cramping.
--- NOTE | 2018-02-15 15:57 | PT.OTN ---
Current Diagnoses Type 2 diabetes mellitus without complications (02/15/18) Morbid (severe) obesity due to excess calories (02/15/18) Body mass index (BMI) 50-59.9 , adult (02/15/18) Physical Therapy Treatment Note PT-OP-A Visit Information Start: 09/08/17 10:49 Freq: Status: Active Protocol: Document 02/15/18 11:45 LJ (Rec: 02/15/18 15:03 LJ [id number]) Out-Patient Physical Therapy Visit Information Visit Information Visit Type Aquatic Treatment Note PT-OP-B Current Condition Start: 09/08/17 10:49 Freq: Status: Active Protocol: Document 09/08/17 10:30 RCC (Rec: 09/08/17 11:04 RCC [email or web address]) Current Condition History of Current Condition Onset Date years ago Current Complaints L shoulder and impaired ability to walk History of Current Condition Pt is a 71 y/o female presenting to physical therapy with a c/o L shoulder pain, as well as bilateral knee pain and swelling L>R limiting her ability to ambulate long distances. Pt notes that she had PT prior for L shoulder with some results, but now is painful when doing her exercises. She sleeps in a upright chair with an ice pack on the L shoulder due to having pain lying down in bed, normally sleeping 2-3 hrs a night. Pt notes that this sleeping position increases her LE swelling. She does not wear compression stockings because they are expensive and Medicare does not cover them. She is waiting on new orthotics to get new shoes. She has to support her L arm most of the time due to pain is she lets it hang. She had an injection in the shoulder which worked for 4 days, and effects wore off before she even had PT last time around. Pt takes Tylenol for pain, and ice helps sometimes. She reports that her orthopedic surgeon suggested that she not do surgery on her shoulder at this point. Pt is undergoing obesity counseling, and is referred for mobility and physical activity with a goal of weight loss, as well as chronic knee and L shoulder pain. Prior Treatments and Tests MRI L shoulder 04/21/2017: Moderate AC joint degeneration , no nearby rotator cuff tears . Irregular globular signal within the superior labrum suggests superior labral tear (SLAP type I or II pathology). No para labral cyst formation . Treatment Goals Patient/Caregiver Goals 1: decrease shoulder pain, 2: increase knee and LE strength to tolerate walking. Prior Functional Status Baseline Function- ADL's Modified Independent Baseline Function- Mobility Modified Independent Baseline Function- Gait community ambulation without device. Current Functional Impairments (Reported) Functional Limitations- ADL's modified indep. Functional Limitations- Mobility/Gait Indep community gait 2 days per week, with increased pain and fatigue. PT-OP-C Subjective Start: 09/08/17 10:49 Freq: Status: Active Protocol: Document 02/15/18 11:45 LJ (Rec: 02/15/18 15:57 LJ [id number]) OP-PT Subjective Patient Comments Patient Comments Pt reports continued ROM increase and decrease in pain of LAKHWINDER. States she no longer crackles in her back after using tennis ball to roll out her back. PT-OP-F Manual Assessment Start: 09/08/17 10:49 Freq: Status: Active Protocol: Document 01/11/18 12:43 RCC (Rec: 01/14/18 12:51 RCC [email or web address]) Manual Assessments Joint Mobility Assessment Joint Mobility Assessment moderate restriction L scapular upward rotation PT-OP-G Mobility & Gait Start: 09/08/17 10:49 Freq: Status: Active Protocol: Document 09/08/17 10:30 RCC (Rec: 09/08/17 13:39 RCC [email or web address]) OP Gait Assessment Comments Gait Comments Mildly antalgic, increased lateral sway, decreased step length on the L. PT-OP-H Neuro Start: 09/08/17 10:49 Freq: Status: Active Protocol: Document 09/08/17 10:30 RCC (Rec: 09/08/17 13:39 RCC [email or web address]) Sensation Evaluation Comments Summary Comments Impaired sensation B toes, intact plantar and dorsal surface of feet. Deep Tendon Reflex & Clonus Assessment Deep Tendon Reflex Bilateral Achilles Deep Tendon Reflex 1+ Diminished Bilateral Patellar Deep Tendon Reflex 1+ Diminished Ankle Clonus Bilateral Clonus Assessment Absent PT-OP-K Range of Motion Start: 09/08/17 10:49 Freq: Status: Active Protocol: Document 12/14/17 11:58 RCC (Rec: 12/15/17 17:50 RCC [email or web address]) Shoulder Goniometric Range of Motion Shoulder Measured in Degrees Left Active Testing Position Sitting Flexion 145 Abduction 160 External Rotation at 0 degrees Abduction 60 PT-OP-L Special Tests Start: 09/08/17 10:49 Freq: Status: Active Protocol: Document 09/08/17 10:30 RCC (Rec: 09/08/17 14:52 RCC [email or web address]) Special Tests Cervical Spine Special Tests Spurling's Test Test Results Negative Shoulder Special Tests Lift-Off Rotator Cuff Test Results negative B Empty Can Test Results positive L, negative R AC Joint Compression Test Results positive L, negative R Anderson Cole Impingement Test Results positive L, negative R Load and Shift Test Results negative B Speed's Biceps Test Results negative B Apprehension Test Test Results negative B Knee Special Tests Eccentric step down test Test Results positive for pain on the L Comments 6 step Varus- 25 Degrees Test Results negative B Varus- 0 Degrees Test Results negative B Valgus- 25 Degrees Test Results negative B Valgus- 0 Degrees Test Results negative B PT-OP-M Strength Start: 09/08/17 10:49 Freq: Status: Active Protocol: Document 12/14/17 11:58 RCC (Rec: 12/15/17 17:50 RCC [email or web address]) Shoulder Strength Shoulder Manual Muscle Testing Left Flexion 4+ Good+ Abduction (C5) 4 Good External Rotation 4+ Good+ Internal Rotation 5 Normal Elbow/Forearm Strength Elbow and Forearm Manual Muscle Testing Left Flexion (C6) 4+ Good+ Extension (C7) 5 Normal PT-OP-Q Treatments Start: 09/08/17 10:49 Freq: Status: Active Protocol: Document 01/11/18 12:43 RCC (Rec: 01/14/18 12:51 RCC [email or web address]) Therapeutic Exercises Sitting Exercises scapular retraction Side bilateral Reps/Minutes x15 Comments hold 3 sec, tactile cuing pulleys Sitting Exercise Name flexion and abduction Side bilateral Reps/Minutes 10 reps each Manual Therapy Treatment Soft Tissue Mobilization rhomboids Body Location L rhomboids Mobilization Type Rolling Intensity/Depth Moderate Body Position Sitting 4 Body Location L biceps brachii Mobilization Type Strumming Intensity/Depth Moderate Body Position Sitting 2 Body Location L pectorals Mobilization Type Strumming Intensity/Depth Moderate Body Position Sitting Joint Mobilizations [address] joint Direction lateral, upward rotation Grade III Body Position Sitting Reps/Duration 12 min PT-OP-R Modalities Start: 09/08/17 10:49 Freq: Status: Active Protocol: Document 11/23/17 15:15 RCC (Rec: 11/23/17 17:27 RCC [email or web address]) Hot Pack/Cold Pack Treatment Cold Pack Location L Shoulder and biceps Patient Position Sitting Treatment Duration (minutes) 10 Patient Tolerance Good Comments wrapped for compression PT-OP-S Aquatic Treatment Start: 12/21/17 15:20 Freq: Status: Active Protocol: Document 02/15/18 11:45 (Rec: 02/15/18 15:57 [id number]) Aquatics Treatment Pool Entry/Exit Pool Entry/Exit Method Stairs Assistance Independent Water Walking Monster Walk Water Level Chest Level Comments #3 ankle wts Sideways Water Level Chest Level Level of Assistance Standby Assistance Comments #3 ankle wts Forwards Water Level Chest Level Comments #3 ankle wts Lower Extremity Exercises 3 Details hip flex/ext, ab/ad, HS curls Body Position Standing Water Level Chest Level Reps/Duration min assist w/UEs 1 Details squats Body Position Standing Water Level Chest Level Reps/Duration 10 Comments cues for mm activation sequence Lower Extremity Stretches 1 Details heel cord, HS Upper Extremity Stretches 1 Details forward walking arms extended Water Level Chest Level Equipment Small Noodle Comments noodle behind back, modified hand position w/smiles [place] Activities [place] Activities Bicycle [place] Running Hip Abduction/Adduction Equipment belt Duration 10 min Comments pt requiring cues for posture and increasing posterior chain involvement in skiing, abd, and bicycling PT-OP-T Assessment and Plan Start: 09/08/17 10:49 Freq: Status: Active Protocol: Document 02/15/18 11:45 (Rec: 02/15/18 15:57 [id number]) Physical Therapy Assessment Goals Five Impairment LE strength Group Home Goal (LTG) knee flexion and extension, hip flexion, ER and IR to 4+/5 or greater prior to d/c. Four Impairment UE weakness Group Home Goal (LTG) Shoulder flexion, elbow flexion and extension at least 4+/5, and shoulder abduction, ER, IR 5/5 with manual muscle testing. 12/14/17: good progress. LTG Duration 8 weeks Three Impairment Impaired gait tolerance Short Term Goal (STG) Pt will be compliant with a walking program 3 days per week for 20 mins. 12/14/17: goal achieved Family Literacy Coordinator Goal (LTG) Pt will be compliant with a walking program, 5 days per week for 30 mins. 12/14/17: progressing toward goal. LTG Duration 8 weeks Two Impairment L shoulder ROM Group Home Goal (LTG) L shoulder flexion and abduction to 150 deg, ER to 70 deg. prior to d/c for functional reaching overhead. 12/14/17: ER to 60 deg, flexion to 145 deg. LTG Duration 8 weeks One Impairment L shoulder pain 9/10 Short Term Goal (STG) 6/10 or less rated L shoulder pain Family Literacy Coordinator Goal (LTG) 4/10 or less rated L shoulder pain 12/14/17: pain rated 5/10 L shoulder Progress Towards Goals Progress Towards Goals Progressing Toward Goals Slow Progress due to Activity Tolerance Slow Progress due to Medical Issues Assessment Summary Assessment Pt educated in proper hand positioning when reaching to put shoulder into open position. pt demonstrated understanding as evidenced by ability to increase ROM when shoulder in neutral position. No LE crampin this session. Physical Therapy Plan Frequency and Duration Frequency of Treatment 2x/Week Duration of Treatment 8 weeks Plan of Care Start Date 12/14/17 Plan of Care End Date 02/08/18 Therapeutic Interventions Therapeutic Interventions Aquatic Therapy Balance Training Gait Training Home Exercise Program Joint Mobilizations Manual Therapy Neuromuscular Re-education Patient/Caregiver Education Self-Care/Home Management Soft Tissue Mobilization Taping Therapeutic Activities Therapeutic Exercises Discharge Physical Therapy Discharge Reasons Patient Request Next Visit Focus/Plan Next Note Type Treatment Note Next Visit Plan Stretch LEs prior to entering pool d/t increased cramping this session. Attempt deep water activities in beginning of therapy to avoid fatiguing LEs causing cramping.
--- NOTE | 2018-02-16 08:22 | PT.OTRE ---
Current Diagnoses Type 2 diabetes mellitus without complications (02/15/18) Morbid (severe) obesity due to excess calories (02/15/18) Body mass index (BMI) 50-59.9 , adult (02/15/18) Past Medical History (Last Reviewed 12/06/17 @ 11:58 by Ivan Recinos MD) Morbid obesity with BMI of 40.0-44.9, adult (Chronic) Excessive daytime sleepiness (Chronic) Diabetes type 2, controlled (Chronic) Essential hypertension (Chronic 02/04/11) Morbid obesity (Chronic 02/04/11) Mixed hyperlipidemia (Chronic 02/04/11) Asthma (Chronic ~1958) Peripheral neuropathy (Chronic ~2015) Shoulder pain (Chronic ~2016) Foot pain (Chronic ~1999) Fibromyalgia (Chronic) Carpal tunnel syndrome (Chronic ~1997) Ankle pain (Chronic ~1953) Rosacea (Chronic ~1989) History of recurrent ear infection (Chronic ~1955) Hearing loss (Chronic ~1955) Cataracts, bilateral (Chronic ~1999) Obstructive sleep apnea syndrome (Chronic 02/04/11) Glaucoma (Chronic 02/04/11) Chicken pox (Resolved ~1953) Chlamydia (Resolved ~1976) Endometriosis (Resolved) Fibroids (Resolved) Measles (Resolved ~1953) Menstrual cycle disorder (Resolved ~1961) Rubella (Resolved ~1955) Type 2 diabetes mellitus without complication, with long-term current use of insulin (Resolved 01/10/17) Surgical History (Last Reviewed 12/06/17 @ 11:58 by Ivan Recinos MD) Anesthesia (Resolved) Surgical procedure planned (Resolved) History of tonsillectomy (~1952) Status post hysterectomy (~1986) Provider Visit Care Team Role Provider Type Ivan Recinos MD Family Provider Physician Primary Care Provider Specialty: Internal Medicine Address: [address] [place] [address], [id number] Email: [email or web address] NATALIO Herndon Attending Provider Advanced Cnc Programmer Specialty: Medical Address: [address] [place] [address], [id number] Email: Physical Therapy Re-Evaluation PT-OP-A Visit Information Start: 09/08/17 10:49 Freq: Status: Active Protocol: Document 02/15/18 11:45 LJ (Rec: 02/15/18 15:03 LJ [id number]) Out-Patient Physical Therapy Visit Information Visit Information Visit Type Aquatic Treatment Note PT-OP-B Current Condition Start: 09/08/17 10:49 Freq: Status: Active Protocol: Document 09/08/17 10:30 RCC (Rec: 09/08/17 11:04 RCC [email or web address]) Current Condition History of Current Condition Onset Date years ago Current Complaints L shoulder and impaired ability to walk History of Current Condition Pt is a 71 y/o female presenting to physical therapy with a c/o L shoulder pain, as well as bilateral knee pain and swelling L>R limiting her ability to ambulate long distances. Pt notes that she had PT prior for L shoulder with some results, but now is painful when doing her exercises. She sleeps in a upright chair with an ice pack on the L shoulder due to having pain lying down in bed, normally sleeping 2-3 hrs a night. Pt notes that this sleeping position increases her LE swelling. She does not wear compression stockings because they are expensive and Medicare does not cover them. She is waiting on new orthotics to get new shoes. She has to support her L arm most of the time due to pain is she lets it hang. She had an injection in the shoulder which worked for 4 days, and effects wore off before she even had PT last time around. Pt takes Tylenol for pain, and ice helps sometimes. She reports that her orthopedic surgeon suggested that she not do surgery on her shoulder at this point. Pt is undergoing obesity counseling, and is referred for mobility and physical activity with a goal of weight loss, as well as chronic knee and L shoulder pain. Prior Treatments and Tests MRI L shoulder 04/21/2017: Moderate AC joint degeneration , no nearby rotator cuff tears . Irregular globular signal within the superior labrum suggests superior labral tear (SLAP type I or II pathology). No para labral cyst formation . Treatment Goals Patient/Caregiver Goals 1: decrease shoulder pain, 2: increase knee and LE strength to tolerate walking. Prior Functional Status Baseline Function- ADL's Modified Independent Baseline Function- Mobility Modified Independent Baseline Function- Gait community ambulation without device. Current Functional Impairments (Reported) Functional Limitations- ADL's modified indep. Functional Limitations- Mobility/Gait Indep community gait 2 days per week, with increased pain and fatigue. PT-OP-C Subjective Start: 09/08/17 10:49 Freq: Status: Active Protocol: Document 02/15/18 11:45 LJ (Rec: 02/15/18 15:57 LJ [id number]) OP-PT Subjective Patient Comments Patient Comments Pt reports continued ROM increase and decrease in pain of LAKHWINDER. States she no longer crackles in her back after using tennis ball to roll out her back. PT-OP-F Manual Assessment Start: 09/08/17 10:49 Freq: Status: Active Protocol: Document 01/11/18 12:43 RCC (Rec: 01/14/18 12:51 RCC [email or web address]) Manual Assessments Joint Mobility Assessment Joint Mobility Assessment moderate restriction L scapular upward rotation PT-OP-G Mobility & Gait Start: 09/08/17 10:49 Freq: Status: Active Protocol: Document 09/08/17 10:30 RCC (Rec: 09/08/17 13:39 RCC [email or web address]) OP Gait Assessment Comments Gait Comments Mildly antalgic, increased lateral sway, decreased step length on the L. PT-OP-H Neuro Start: 09/08/17 10:49 Freq: Status: Active Protocol: Document 09/08/17 10:30 RCC (Rec: 09/08/17 13:39 RCC [email or web address]) Sensation Evaluation Comments Summary Comments Impaired sensation B toes, intact plantar and dorsal surface of feet. Deep Tendon Reflex & Clonus Assessment Deep Tendon Reflex Bilateral Achilles Deep Tendon Reflex 1+ Diminished Bilateral Patellar Deep Tendon Reflex 1+ Diminished Ankle Clonus Bilateral Clonus Assessment Absent PT-OP-K Range of Motion Start: 09/08/17 10:49 Freq: Status: Active Protocol: Document 12/14/17 11:58 RCC (Rec: 12/15/17 17:50 RCC [email or web address]) Shoulder Goniometric Range of Motion Shoulder Measured in Degrees Left Active Testing Position Sitting Flexion 145 Abduction 160 External Rotation at 0 degrees Abduction 60 PT-OP-L Special Tests Start: 09/08/17 10:49 Freq: Status: Active Protocol: Document 09/08/17 10:30 RCC (Rec: 09/08/17 14:52 RCC [email or web address]) Special Tests Cervical Spine Special Tests Spurling's Test Test Results Negative Shoulder Special Tests Lift-Off Rotator Cuff Test Results negative B Empty Can Test Results positive L, negative R AC Joint Compression Test Results positive L, negative R Anderson Cole Impingement Test Results positive L, negative R Load and Shift Test Results negative B Speed's Biceps Test Results negative B Apprehension Test Test Results negative B Knee Special Tests Eccentric step down test Test Results positive for pain on the L Comments 6 step Varus- 25 Degrees Test Results negative B Varus- 0 Degrees Test Results negative B Valgus- 25 Degrees Test Results negative B Valgus- 0 Degrees Test Results negative B PT-OP-M Strength Start: 09/08/17 10:49 Freq: Status: Active Protocol: Document 12/14/17 11:58 RCC (Rec: 12/15/17 17:50 RCC [email or web address]) Shoulder Strength Shoulder Manual Muscle Testing Left Flexion 4+ Good+ Abduction (C5) 4 Good External Rotation 4+ Good+ Internal Rotation 5 Normal Elbow/Forearm Strength Elbow and Forearm Manual Muscle Testing Left Flexion (C6) 4+ Good+ Extension (C7) 5 Normal PT-OP-Q Treatments Start: 09/08/17 10:49 Freq: Status: Active Protocol: Document 01/11/18 12:43 RCC (Rec: 01/14/18 12:51 RCC [email or web address]) Therapeutic Exercises Sitting Exercises scapular retraction Side bilateral Reps/Minutes x15 Comments hold 3 sec, tactile cuing pulleys Sitting Exercise Name flexion and abduction Side bilateral Reps/Minutes 10 reps each Manual Therapy Treatment Soft Tissue Mobilization rhomboids Body Location L rhomboids Mobilization Type Rolling Intensity/Depth Moderate Body Position Sitting 4 Body Location L biceps brachii Mobilization Type Strumming Intensity/Depth Moderate Body Position Sitting 2 Body Location L pectorals Mobilization Type Strumming Intensity/Depth Moderate Body Position Sitting Joint Mobilizations [address] joint Direction lateral, upward rotation Grade III Body Position Sitting Reps/Duration 12 min PT-OP-R Modalities Start: 09/08/17 10:49 Freq: Status: Active Protocol: Document 11/23/17 15:15 RCC (Rec: 11/23/17 17:27 RCC [email or web address]) Hot Pack/Cold Pack Treatment Cold Pack Location L Shoulder and biceps Patient Position Sitting Treatment Duration (minutes) 10 Patient Tolerance Good Comments wrapped for compression PT-OP-T Assessment and Plan Start: 09/08/17 10:49 Freq: Status: Active Protocol: Document 02/15/18 11:45 MARIE (Rec: 02/15/18 15:57 [id number]) Physical Therapy Assessment Goals Five Impairment LE strength Light Rail Vehicle Operator Goal (LTG) knee flexion and extension, hip flexion, ER and IR to 4+/5 or greater prior to d/c. Four Impairment UE weakness Light Rail Vehicle Operator Goal (LTG) Shoulder flexion, elbow flexion and extension at least 4+/5, and shoulder abduction, ER, IR 5/5 with manual muscle testing. 12/14/17: good progress. LTG Duration 8 weeks Three Impairment Impaired gait tolerance Short Term Goal (STG) Pt will be compliant with a walking program 3 days per week for 20 mins. 12/14/17: goal achieved Prison Goal (LTG) Pt will be compliant with a walking program, 5 days per week for 30 mins. 12/14/17: progressing toward goal. LTG Duration 8 weeks Two Impairment L shoulder ROM Light Rail Vehicle Operator Goal (LTG) L shoulder flexion and abduction to 150 deg, ER to 70 deg. prior to d/c for functional reaching overhead. 12/14/17: ER to 60 deg, flexion to 145 deg. LTG Duration 8 weeks One Impairment L shoulder pain 9/10 Short Term Goal (STG) 6/10 or less rated L shoulder pain Prison Goal (LTG) 4/10 or less rated L shoulder pain 12/14/17: pain rated 5/10 L shoulder Progress Towards Goals Progress Towards Goals Progressing Toward Goals Slow Progress due to Activity Tolerance Slow Progress due to Medical Issues Assessment Summary Assessment Pt educated in proper hand positioning when reaching to put shoulder into open position. pt demonstrated understanding as evidenced by ability to increase ROM when shoulder in neutral position. No LE crampin this session. Physical Therapy Plan Frequency and Duration Frequency of Treatment 2x/Week Duration of Treatment 8 weeks Plan of Care Start Date 12/14/17 Plan of Care End Date 02/08/18 Therapeutic Interventions Therapeutic Interventions Aquatic Therapy Balance Training Gait Training Home Exercise Program Joint Mobilizations Manual Therapy Neuromuscular Re-education Patient/Caregiver Education Self-Care/Home Management Soft Tissue Mobilization Taping Therapeutic Activities Therapeutic Exercises Discharge Physical Therapy Discharge Reasons Patient Request Next Visit Focus/Plan Next Note Type Treatment Note Next Visit Plan Stretch LEs prior to entering pool d/t increased cramping this session. Attempt deep water activities in beginning of therapy to avoid fatiguing LEs causing cramping.
--- NOTE | 2018-02-16 08:22 | PT.OPPOC ---
Current Diagnoses Type 2 diabetes mellitus without complications (02/15/18) Morbid (severe) obesity due to excess calories (02/15/18) Body mass index (BMI) 50-59.9 , adult (02/15/18) Provider Visit Care Team Role Provider Type Ivan Recinos MD Family Provider Physician Primary Care Provider Specialty: Internal Medicine Address: [address] [place] [id number] Email: [email or web address] NATALIO Herndon Attending Provider Advanced Lightout Examiner Specialty: Medical Address: [address] [place] [address], [id number] Email: Plan Of Care PT-OP-T Assessment and Plan Start: 09/08/17 10:49 Freq: Status: Active Protocol: Document 02/15/18 11:45 MARIE (Rec: 02/15/18 15:57 MARIE [email or web address]) Physical Therapy Assessment Goals Five Impairment LE strength Detention Goal (LTG) knee flexion and extension, hip flexion, ER and IR to 4+/5 or greater prior to d/c. Four Impairment UE weakness Lube Attendant Goal (LTG) Shoulder flexion, elbow flexion and extension at least 4+/5, and shoulder abduction, ER, IR 5/5 with manual muscle testing. 12/14/17: good progress. LTG Duration 8 weeks Three Impairment Impaired gait tolerance Short Term Goal (STG) Pt will be compliant with a walking program 3 days per week for 20 mins. 12/14/17: goal achieved Lube Attendant Goal (LTG) Pt will be compliant with a walking program, 5 days per week for 30 mins. 12/14/17: progressing toward goal. LTG Duration 8 weeks Two Impairment L shoulder ROM Lube Attendant Goal (LTG) L shoulder flexion and abduction to 150 deg, ER to 70 deg. prior to d/c for functional reaching overhead. 12/14/17: ER to 60 deg, flexion to 145 deg. LTG Duration 8 weeks One Impairment L shoulder pain 9/10 Short Term Goal (STG) 6/10 or less rated L shoulder pain Detention Goal (LTG) 4/10 or less rated L shoulder pain 12/14/17: pain rated 5/10 L shoulder Progress Towards Goals Progress Towards Goals Progressing Toward Goals Slow Progress due to Activity Tolerance Slow Progress due to Medical Issues Assessment Summary Assessment Pt educated in proper hand positioning when reaching to put shoulder into open position. pt demonstrated understanding as evidenced by ability to increase ROM when shoulder in neutral position. No LE crampin this session. Physical Therapy Plan Frequency and Duration Frequency of Treatment 2x/Week Duration of Treatment 8 weeks Plan of Care Start Date 12/14/17 Plan of Care End Date 02/08/18 Therapeutic Interventions Therapeutic Interventions Aquatic Therapy Balance Training Gait Training Home Exercise Program Joint Mobilizations Manual Therapy Neuromuscular Re-education Patient/Caregiver Education Self-Care/Home Management Soft Tissue Mobilization Taping Therapeutic Activities Therapeutic Exercises Discharge Physical Therapy Discharge Reasons Patient Request Next Visit Focus/Plan Next Note Type Treatment Note Next Visit Plan Stretch LEs prior to entering pool d/t increased cramping this session. Attempt deep water activities in beginning of therapy to avoid fatiguing LEs causing cramping. Plan of Care Dates Plan of Care Start Date 12/14/17 Plan of Care End Date 02/08/18 Please Sign and Return: I have reviewed this Plan of Care and certify that the skilled therapy services above are required to meet the patient?s needs. Physician Signature Date Printed Name and Credentials Clinical Instructor Signature Printed Name and Credentials
--- NOTE | 2018-03-08 14:56 | PT.OTN ---
Current Diagnoses Type 2 diabetes mellitus without complications (03/08/18) Morbid (severe) obesity due to excess calories (03/08/18) Primary osteoarthritis, left shoulder (03/08/18) Impingement syndrome of left shoulder (03/08/18) Body mass index (BMI) 50-59.9, adult (03/08/18) Physical Therapy Treatment Note PT-OP-A Visit Information Start: 09/08/17 10:49 Freq: Status: Active Protocol: Document 03/08/18 10:15 LJ (Rec: 03/08/18 14:46 LJ [email or web address]) Out-Patient Physical Therapy Visit Information Visit Information Visit Type Aquatic Treatment Note Visit Start Time 10:15 Visit Stop Time 11:00 Total Visit Minutes 45 Visit Number 29 Number of EXPORT PACKER Visits 3 PT-OP-B Current Condition Start: 09/08/17 10:49 Freq: Status: Active Protocol: Document 09/08/17 10:30 RCC (Rec: 09/08/17 11:04 RCC [email or web address]) Current Condition History of Current Condition Onset Date years ago Current Complaints L shoulder and impaired ability to walk History of Current Condition Pt is a 71 y/o female presenting to physical therapy with a c/o L shoulder pain, as well as bilateral knee pain and swelling L>R limiting her ability to ambulate long distances. Pt notes that she had PT prior for L shoulder with some results, but now is painful when doing her exercises. She sleeps in a upright chair with an ice pack on the L shoulder due to having pain lying down in bed, normally sleeping 2-3 hrs a night. Pt notes that this sleeping position increases her LE swelling. She does not wear compression stockings because they are expensive and Medicare does not cover them. She is waiting on new orthotics to get new shoes. She has to support her L arm most of the time due to pain is she lets it hang. She had an injection in the shoulder which worked for 4 days, and effects wore off before she even had PT last time around. Pt takes Tylenol for pain, and ice helps sometimes. She reports that her orthopedic surgeon suggested that she not do surgery on her shoulder at this point. Pt is undergoing obesity counseling, and is referred for mobility and physical activity with a goal of weight loss, as well as chronic knee and L shoulder pain. Prior Treatments and Tests MRI L shoulder 04/21/2017: Moderate AC joint degeneration , no nearby rotator cuff tears . Irregular globular signal within the superior labrum suggests superior labral tear (SLAP type I or II pathology). No para labral cyst formation . Treatment Goals Patient/Caregiver Goals 1: decrease shoulder pain, 2: increase knee and LE strength to tolerate walking. Prior Functional Status Baseline Function- ADL's Modified Independent Baseline Function- Mobility Modified Independent Baseline Function- Gait community ambulation without device. Current Functional Impairments (Reported) Functional Limitations- ADL's modified indep. Functional Limitations- Mobility/Gait Indep community gait 2 days per week, with increased pain and fatigue. PT-OP-C Subjective Start: 09/08/17 10:49 Freq: Status: Active Protocol: Document 03/08/18 10:15 LJ (Rec: 03/08/18 14:46 LJ [email or web address]) OP-PT Subjective Patient Comments Patient Comments Pt reports some pain in anterior L shoulder region PT-OP-F Manual Assessment Start: 09/08/17 10:49 Freq: Status: Active Protocol: Document 01/11/18 12:43 RCC (Rec: 01/14/18 12:51 RCC [email or web address]) Manual Assessments Joint Mobility Assessment Joint Mobility Assessment moderate restriction L scapular upward rotation PT-OP-G Mobility & Gait Start: 09/08/17 10:49 Freq: Status: Active Protocol: Document 09/08/17 10:30 RCC (Rec: 09/08/17 13:39 RCC [email or web address]) OP Gait Assessment Comments Gait Comments Mildly antalgic, increased lateral sway, decreased step length on the L. PT-OP-H Neuro Start: 09/08/17 10:49 Freq: Status: Active Protocol: Document 09/08/17 10:30 RCC (Rec: 09/08/17 13:39 RCC [email or web address]) Sensation Evaluation Comments Summary Comments Impaired sensation B toes, intact plantar and dorsal surface of feet. Deep Tendon Reflex & Clonus Assessment Deep Tendon Reflex Bilateral Achilles Deep Tendon Reflex 1+ Diminished Bilateral Patellar Deep Tendon Reflex 1+ Diminished Ankle Clonus Bilateral Clonus Assessment Absent PT-OP-K Range of Motion Start: 09/08/17 10:49 Freq: Status: Active Protocol: Document 12/14/17 11:58 RCC (Rec: 12/15/17 17:50 RCC [email or web address]) Shoulder Goniometric Range of Motion Shoulder Measured in Degrees Left Active Testing Position Sitting Flexion 145 Abduction 160 External Rotation at 0 degrees Abduction 60 PT-OP-L Special Tests Start: 09/08/17 10:49 Freq: Status: Active Protocol: Document 09/08/17 10:30 RCC (Rec: 09/08/17 14:52 RCC [email or web address]) Special Tests Cervical Spine Special Tests Spurling's Test Test Results Negative Shoulder Special Tests Lift-Off Rotator Cuff Test Results negative B Empty Can Test Results positive L, negative R AC Joint Compression Test Results positive L, negative R Anderson Cole Impingement Test Results positive L, negative R Load and Shift Test Results negative B Speed's Biceps Test Results negative B Apprehension Test Test Results negative B Knee Special Tests Eccentric step down test Test Results positive for pain on the L Comments 6 step Varus- 25 Degrees Test Results negative B Varus- 0 Degrees Test Results negative B Valgus- 25 Degrees Test Results negative B Valgus- 0 Degrees Test Results negative B PT-OP-M Strength Start: 09/08/17 10:49 Freq: Status: Active Protocol: Document 12/14/17 11:58 RCC (Rec: 12/15/17 17:50 RCC [email or web address]) Shoulder Strength Shoulder Manual Muscle Testing Left Flexion 4+ Good+ Abduction (C5) 4 Good External Rotation 4+ Good+ Internal Rotation 5 Normal Elbow/Forearm Strength Elbow and Forearm Manual Muscle Testing Left Flexion (C6) 4+ Good+ Extension (C7) 5 Normal PT-OP-Q Treatments Start: 09/08/17 10:49 Freq: Status: Active Protocol: Document 01/11/18 12:43 RCC (Rec: 01/14/18 12:51 RCC [email or web address]) Therapeutic Exercises Sitting Exercises scapular retraction Side bilateral Reps/Minutes x15 Comments hold 3 sec, tactile cuing pulleys Sitting Exercise Name flexion and abduction Side bilateral Reps/Minutes 10 reps each Manual Therapy Treatment Soft Tissue Mobilization rhomboids Body Location L rhomboids Mobilization Type Rolling Intensity/Depth Moderate Body Position Sitting 4 Body Location L biceps brachii Mobilization Type Strumming Intensity/Depth Moderate Body Position Sitting 2 Body Location L pectorals Mobilization Type Strumming Intensity/Depth Moderate Body Position Sitting Joint Mobilizations [address] joint Direction lateral, upward rotation Grade III Body Position Sitting Reps/Duration 12 min PT-OP-R Modalities Start: 09/08/17 10:49 Freq: Status: Active Protocol: Document 11/23/17 15:15 RCC (Rec: 11/23/17 17:27 RCC [email or web address]) Hot Pack/Cold Pack Treatment Cold Pack Location L Shoulder and biceps Patient Position Sitting Treatment Duration (minutes) 10 Patient Tolerance Good Comments wrapped for compression PT-OP-S Aquatic Treatment Start: 12/21/17 15:20 Freq: Status: Active Protocol: Document 03/08/18 10:15 LJ (Rec: 03/08/18 14:46 LJ [email or web address]) Aquatics Treatment Pool Entry/Exit Pool Entry/Exit Method Stairs Assistance Independent Water Walking Monster Walk Water Level Chest Level Comments #3 ankle wts Sideways Water Level Chest Level Level of Assistance Standby Assistance Comments #3 ankle wts, cues for foot placement Forwards Water Level Chest Level Level of Assistance Standby Assistance Comments #3 ankle wts, cues for posture Lower Extremity Exercises step up/down Details all ways Comments cues for muscle activation sequencing 3 Details hip flex/ext, ab/ad, HS curls Body Position Standing Water Level Chest Level Reps/Duration min assist w/UEs Comments #3 wts 1 Details squats Body Position Standing Water Level Chest Level Reps/Duration 15 Comments mm activation sequence Lower Extremity Stretches 1 Details heel cord, HS Comments gastroc and soleus Upper Extremity Exercises 7 Details wipers Body Position Sitting Reps/Duration 20 reps Comments seated on table, manual cues 6 Details ab/ad Body Position Standing Water Level Neck Level Reps/Duration 20 reps Comments standing 5 Details bicep curl/ ext Body Position Standing Water Level Chest Level Reps/Duration 10 reps 4 Details flex/ext Body Position Standing Water Level Chest Level Reps/Duration 20 Comments during walking; cueing for relaxation of shoulders Upper Extremity Stretches IR/ER-horizontal and vertical Reps/Duration 5 horiz; 10 vert 1 Details forward walking arms extended Water Level Chest Level Equipment UE paddles PT-OP-T Assessment and Plan Start: 09/08/17 10:49 Freq: Status: Active Protocol: Document 03/08/18 14:48 MARIE (Rec: 03/08/18 14:56 LJ [email or web address]) Physical Therapy Assessment Goals Five Impairment LE strength Assisted Goal (LTG) knee flexion and extension, hip flexion, ER and IR to 4+/5 or greater prior to d/c. Four Impairment UE weakness Assisted Goal (LTG) Shoulder flexion, elbow flexion and extension at least 4+/5, and shoulder abduction, ER, IR 5/5 with manual muscle testing. 12/14/17: good progress. Three Impairment Impaired gait tolerance Short Term Goal (STG) Pt will be compliant with a walking program 3 days per week for 20 mins. 12/14/17: goal achieved Mechanical Engineering Teacher Goal (LTG) Pt will be compliant with a walking program, 5 days per week for 30 mins. 12/14/17: progressing toward goal. Two Impairment L shoulder ROM Assisted Goal (LTG) L shoulder flexion and abduction to 150 deg, ER to 70 deg. prior to d/c for functional reaching overhead. 12/14/17: ER to 60 deg, flexion to 145 deg. One Impairment L shoulder pain 9/10 Short Term Goal (STG) 6/10 or less rated L shoulder pain Assisted Goal (LTG) 4/10 or less rated L shoulder pain 12/14/17: pain rated 5/10 L shoulder Progress Towards Goals Progress Towards Goals Progressing Toward Goals Slow Progress due to Activity Tolerance Slow Progress due to Medical Issues Assessment Summary Assessment Pt making good progress with core muscle activation iniation prior to functional movements as evidenced by reduction of knee pain in step up/down exercises. Physical Therapy Plan Frequency and Duration Frequency of Treatment 2x/Week Duration of Treatment 8 weeks Plan of Care Start Date 12/14/17 Plan of Care End Date 02/08/18 Therapeutic Interventions Therapeutic Interventions Aquatic Therapy Balance Training Gait Training Home Exercise Program Joint Mobilizations Manual Therapy Neuromuscular Re-education Patient/Caregiver Education Self-Care/Home Management Soft Tissue Mobilization Taping Therapeutic Activities Therapeutic Exercises Discharge Physical Therapy Discharge Reasons Patient Request Next Visit Focus/Plan Next Note Type Treatment Note Next Visit Plan Pt arrived 15 min early and stayed an hour later than end of session. Appropriate for discharge to [facility].
--- NOTE | 2018-03-10 15:19 | PT.OTN ---
Current Diagnoses Type 2 diabetes mellitus without complications (03/10/18) Morbid (severe) obesity due to excess calories (03/10/18) Primary osteoarthritis, left shoulder (03/10/18) Impingement syndrome of left shoulder (03/10/18) Body mass index (BMI) 50-59.9, adult (03/10/18) Physical Therapy Treatment Note PT-OP-A Visit Information Start: 09/08/17 10:49 Freq: Status: Active Protocol: Document 03/10/18 11:00 LJ (Rec: 03/10/18 15:19 LJ [email or web address]) Out-Patient Physical Therapy Visit Information Visit Information Visit Type Aquatic Treatment Note Visit Start Time 11:00 Visit Stop Time 11:45 Total Visit Minutes 45 Visit Number 30 Number of SLICING MACHINE TENDER Visits 4 PT-OP-B Current Condition Start: 09/08/17 10:49 Freq: Status: Active Protocol: Document 09/08/17 10:30 RCC (Rec: 09/08/17 11:04 RCC [email or web address]) Current Condition History of Current Condition Onset Date years ago Current Complaints L shoulder and impaired ability to walk History of Current Condition Pt is a 71 y/o female presenting to physical therapy with a c/o L shoulder pain, as well as bilateral knee pain and swelling L>R limiting her ability to ambulate long distances. Pt notes that she had PT prior for L shoulder with some results, but now is painful when doing her exercises. She sleeps in a upright chair with an ice pack on the L shoulder due to having pain lying down in bed, normally sleeping 2-3 hrs a night. Pt notes that this sleeping position increases her LE swelling. She does not wear compression stockings because they are expensive and Medicare does not cover them. She is waiting on new orthotics to get new shoes. She has to support her L arm most of the time due to pain is she lets it hang. She had an injection in the shoulder which worked for 4 days, and effects wore off before she even had PT last time around. Pt takes Tylenol for pain, and ice helps sometimes. She reports that her orthopedic surgeon suggested that she not do surgery on her shoulder at this point. Pt is undergoing obesity counseling, and is referred for mobility and physical activity with a goal of weight loss, as well as chronic knee and L shoulder pain. Prior Treatments and Tests MRI L shoulder 04/21/2017: Moderate AC joint degeneration , no nearby rotator cuff tears . Irregular globular signal within the superior labrum suggests superior labral tear (SLAP type I or II pathology). No para labral cyst formation . Treatment Goals Patient/Caregiver Goals 1: decrease shoulder pain, 2: increase knee and LE strength to tolerate walking. Prior Functional Status Baseline Function- ADL's Modified Independent Baseline Function- Mobility Modified Independent Baseline Function- Gait community ambulation without device. Current Functional Impairments (Reported) Functional Limitations- ADL's modified indep. Functional Limitations- Mobility/Gait Indep community gait 2 days per week, with increased pain and fatigue. PT-OP-C Subjective Start: 09/08/17 10:49 Freq: Status: Active Protocol: Document 03/10/18 11:00 LJ (Rec: 03/10/18 15:19 LJ [email or web address]) OP-PT Subjective Patient Comments Patient Comments Pt reports being able to do step through pattern on stairs for 2-3 steps before pain increases and is unable to continue the pattern. PT-OP-F Manual Assessment Start: 09/08/17 10:49 Freq: Status: Active Protocol: Document 01/11/18 12:43 RCC (Rec: 01/14/18 12:51 RCC [email or web address]) Manual Assessments Joint Mobility Assessment Joint Mobility Assessment moderate restriction L scapular upward rotation PT-OP-G Mobility & Gait Start: 09/08/17 10:49 Freq: Status: Active Protocol: Document 09/08/17 10:30 RCC (Rec: 09/08/17 13:39 RCC [email or web address]) OP Gait Assessment Comments Gait Comments Mildly antalgic, increased lateral sway, decreased step length on the L. PT-OP-H Neuro Start: 09/08/17 10:49 Freq: Status: Active Protocol: Document 09/08/17 10:30 RCC (Rec: 09/08/17 13:39 RCC [email or web address]) Sensation Evaluation Comments Summary Comments Impaired sensation B toes, intact plantar and dorsal surface of feet. Deep Tendon Reflex & Clonus Assessment Deep Tendon Reflex Bilateral Achilles Deep Tendon Reflex 1+ Diminished Bilateral Patellar Deep Tendon Reflex 1+ Diminished Ankle Clonus Bilateral Clonus Assessment Absent PT-OP-K Range of Motion Start: 09/08/17 10:49 Freq: Status: Active Protocol: Document 12/14/17 11:58 RCC (Rec: 12/15/17 17:50 RCC [email or web address]) Shoulder Goniometric Range of Motion Shoulder Measured in Degrees Left Active Testing Position Sitting Flexion 145 Abduction 160 External Rotation at 0 degrees Abduction 60 PT-OP-L Special Tests Start: 09/08/17 10:49 Freq: Status: Active Protocol: Document 09/08/17 10:30 RCC (Rec: 09/08/17 14:52 RCC [email or web address]) Special Tests Cervical Spine Special Tests Spurling's Test Test Results Negative Shoulder Special Tests Lift-Off Rotator Cuff Test Results negative B Empty Can Test Results positive L, negative R AC Joint Compression Test Results positive L, negative R Anderson Cole Impingement Test Results positive L, negative R Load and Shift Test Results negative B Speed's Biceps Test Results negative B Apprehension Test Test Results negative B Knee Special Tests Eccentric step down test Test Results positive for pain on the L Comments 6 step Varus- 25 Degrees Test Results negative B Varus- 0 Degrees Test Results negative B Valgus- 25 Degrees Test Results negative B Valgus- 0 Degrees Test Results negative B PT-OP-M Strength Start: 09/08/17 10:49 Freq: Status: Active Protocol: Document 12/14/17 11:58 RCC (Rec: 12/15/17 17:50 RCC [email or web address]) Shoulder Strength Shoulder Manual Muscle Testing Left Flexion 4+ Good+ Abduction (C5) 4 Good External Rotation 4+ Good+ Internal Rotation 5 Normal Elbow/Forearm Strength Elbow and Forearm Manual Muscle Testing Left Flexion (C6) 4+ Good+ Extension (C7) 5 Normal PT-OP-Q Treatments Start: 09/08/17 10:49 Freq: Status: Active Protocol: Document 01/11/18 12:43 RCC (Rec: 01/14/18 12:51 RCC [email or web address]) Therapeutic Exercises Sitting Exercises scapular retraction Side bilateral Reps/Minutes x15 Comments hold 3 sec, tactile cuing pulleys Sitting Exercise Name flexion and abduction Side bilateral Reps/Minutes 10 reps each Manual Therapy Treatment Soft Tissue Mobilization rhomboids Body Location L rhomboids Mobilization Type Rolling Intensity/Depth Moderate Body Position Sitting 4 Body Location L biceps brachii Mobilization Type Strumming Intensity/Depth Moderate Body Position Sitting 2 Body Location L pectorals Mobilization Type Strumming Intensity/Depth Moderate Body Position Sitting Joint Mobilizations [address] joint Direction lateral, upward rotation Grade III Body Position Sitting Reps/Duration 12 min PT-OP-R Modalities Start: 09/08/17 10:49 Freq: Status: Active Protocol: Document 11/23/17 15:15 RCC (Rec: 11/23/17 17:27 RCC [email or web address]) Hot Pack/Cold Pack Treatment Cold Pack Location L Shoulder and biceps Patient Position Sitting Treatment Duration (minutes) 10 Patient Tolerance Good Comments wrapped for compression PT-OP-S Aquatic Treatment Start: 12/21/17 15:20 Freq: Status: Active Protocol: Document 03/10/18 11:00 LJ (Rec: 03/10/18 15:19 LJ [email or web address]) Aquatics Treatment Pool Entry/Exit Pool Entry/Exit Method Stairs Assistance Independent Water Walking Monster Walk Water Level Chest Level Comments #3 ankle wts Sideways Water Level Chest Level Forwards Water Level Chest Level Comments #3 ankle wts, cues for posture Lower Extremity Exercises step up/down Details all ways Comments cues for muscle activation sequencing 3 Details hip flex/ext, ab/ad, HS curls Body Position Standing Water Level Chest Level Reps/Duration min assist w/UEs Comments #3 wts 1 Details squats Body Position Standing Water Level Chest Level Reps/Duration 15 Comments mm activation sequence Lower Extremity Stretches 1 Details heel cord, HS Reps/Duration x4 at middle and end of session Comments gastroc and soleus Upper Extremity Stretches 1 Details forward walking arms extended Water Level Chest Level Equipment UE paddles Palmer Activities Palmer Activities Bicycle Cross Country Running Hip Abduction/Adduction Other Activities pendulum x10 lateral pull-downs/up 10 sec ea direction w/5 sec hold at bottom using med barbells x5 Equipment belt Duration 10 min Comments pt requiring fewer cues for posture and core activation in deep water. Did need cues for keeping legs straight in ski PT-OP-T Assessment and Plan Start: 09/08/17 10:49 Freq: Status: Active Protocol: Document 03/10/18 11:00 MARIE (Rec: 03/10/18 15:19 LJ [email or web address]) Physical Therapy Assessment Goals Five Impairment LE strength Manager Java Goal (LTG) knee flexion and extension, hip flexion, ER and IR to 4+/5 or greater prior to d/c. Four Impairment UE weakness Assisted Goal (LTG) Shoulder flexion, elbow flexion and extension at least 4+/5, and shoulder abduction, ER, IR 5/5 with manual muscle testing. 12/14/17: good progress. Three Impairment Impaired gait tolerance Short Term Goal (STG) Pt will be compliant with a walking program 3 days per week for 20 mins. 12/14/17: goal achieved Manager [employer] Goal (LTG) Pt will be compliant with a walking program, 5 days per week for 30 mins. 12/14/17: progressing toward goal. Two Impairment L shoulder ROM Manager [employer] Goal (LTG) L shoulder flexion and abduction to 150 deg, ER to 70 deg. prior to d/c for functional reaching overhead. 12/14/17: ER to 60 deg, flexion to 145 deg. One Impairment L shoulder pain 9/10 Short Term Goal (STG) 6/10 or less rated L shoulder pain Manager [employer] Goal (LTG) 4/10 or less rated L shoulder pain 12/14/17: pain rated 5/10 L shoulder Progress Towards Goals Progress Towards Goals Progressing Toward Goals Slow Progress due to Activity Tolerance Slow Progress due to Medical Issues Assessment Summary Assessment Pt making good progress with core muscle activation iniation prior to functional movements. as evidenced by reduction of knee pain in step up/down exercises. Able to self-correct posture in shallow water walking and stretching activities. Physical Therapy Plan Frequency and Duration Frequency of Treatment 2x/Week Duration of Treatment 8 weeks Plan of Care Start Date 12/14/17 Plan of Care End Date 02/08/18 Therapeutic Interventions Therapeutic Interventions Aquatic Therapy Balance Training Gait Training Home Exercise Program Joint Mobilizations Manual Therapy Neuromuscular Re-education Patient/Caregiver Education Self-Care/Home Management Soft Tissue Mobilization Taping Therapeutic Activities Therapeutic Exercises Discharge Physical Therapy Discharge Reasons Patient Request Next Visit Focus/Plan Next Note Type Treatment Note Next Visit Plan Advised pt that this was her last aquatic session and that she could be provided HEP for the pool. Pt did not want to discontinue aquatic therapy and stated that her PCP approved her for more visits. This therapist will confer with PT about the situation.
--- NOTE | 2018-03-15 14:42 | PT.OTN ---
Current Diagnoses Type 2 diabetes mellitus without complications (03/15/18) Morbid (severe) obesity due to excess calories (03/15/18) Primary osteoarthritis, left shoulder (03/15/18) Impingement syndrome of left shoulder (03/15/18) Body mass index (BMI) 50-59.9, adult (03/15/18) Physical Therapy Treatment Note PT-OP-A Visit Information Start: 09/08/17 10:49 Freq: Status: Active Protocol: Document 03/15/18 10:15 LJ (Rec: 03/15/18 14:42 LJ [email or web address]) Out-Patient Physical Therapy Visit Information Visit Information Visit Type Aquatic Treatment Note Visit Start Time 10:15 Visit Stop Time 11:00 Total Visit Minutes 45 Visit Number 31 Number of LEAD CASTER Visits 5 PT-OP-B Current Condition Start: 09/08/17 10:49 Freq: Status: Active Protocol: Document 09/08/17 10:30 RCC (Rec: 09/08/17 11:04 RCC [email or web address]) Current Condition History of Current Condition Onset Date years ago Current Complaints L shoulder and impaired ability to walk History of Current Condition Pt is a 71 y/o female presenting to physical therapy with a c/o L shoulder pain, as well as bilateral knee pain and swelling L>R limiting her ability to ambulate long distances. Pt notes that she had PT prior for L shoulder with some results, but now is painful when doing her exercises. She sleeps in a upright chair with an ice pack on the L shoulder due to having pain lying down in bed, normally sleeping 2-3 hrs a night. Pt notes that this sleeping position increases her LE swelling. She does not wear compression stockings because they are expensive and Medicare does not cover them. She is waiting on new orthotics to get new shoes. She has to support her L arm most of the time due to pain is she lets it hang. She had an injection in the shoulder which worked for 4 days, and effects wore off before she even had PT last time around. Pt takes Tylenol for pain, and ice helps sometimes. She reports that her orthopedic surgeon suggested that she not do surgery on her shoulder at this point. Pt is undergoing obesity counseling, and is referred for mobility and physical activity with a goal of weight loss, as well as chronic knee and L shoulder pain. Prior Treatments and Tests MRI L shoulder 04/21/2017: Moderate AC joint degeneration , no nearby rotator cuff tears . Irregular globular signal within the superior labrum suggests superior labral tear (SLAP type I or II pathology). No para labral cyst formation . Treatment Goals Patient/Caregiver Goals 1: decrease shoulder pain, 2: increase knee and LE strength to tolerate walking. Prior Functional Status Baseline Function- ADL's Modified Independent Baseline Function- Mobility Modified Independent Baseline Function- Gait community ambulation without device. Current Functional Impairments (Reported) Functional Limitations- ADL's modified indep. Functional Limitations- Mobility/Gait Indep community gait 2 days per week, with increased pain and fatigue. PT-OP-C Subjective Start: 09/08/17 10:49 Freq: Status: Active Protocol: Document 03/15/18 10:15 LJ (Rec: 03/15/18 14:42 LJ [email or web address]) OP-PT Subjective Patient Comments Patient Comments Pt has no new complaints. States she is able to do better on stairs and has slight pain in ant. LUE as before. PT-OP-F Manual Assessment Start: 09/08/17 10:49 Freq: Status: Active Protocol: Document 01/11/18 12:43 RCC (Rec: 01/14/18 12:51 RCC [email or web address]) Manual Assessments Joint Mobility Assessment Joint Mobility Assessment moderate restriction L scapular upward rotation PT-OP-G Mobility & Gait Start: 09/08/17 10:49 Freq: Status: Active Protocol: Document 09/08/17 10:30 RCC (Rec: 09/08/17 13:39 RCC [email or web address]) OP Gait Assessment Comments Gait Comments Mildly antalgic, increased lateral sway, decreased step length on the L. PT-OP-H Neuro Start: 09/08/17 10:49 Freq: Status: Active Protocol: Document 09/08/17 10:30 RCC (Rec: 09/08/17 13:39 RCC [email or web address]) Sensation Evaluation Comments Summary Comments Impaired sensation B toes, intact plantar and dorsal surface of feet. Deep Tendon Reflex & Clonus Assessment Deep Tendon Reflex Bilateral Achilles Deep Tendon Reflex 1+ Diminished Bilateral Patellar Deep Tendon Reflex 1+ Diminished Ankle Clonus Bilateral Clonus Assessment Absent PT-OP-K Range of Motion Start: 09/08/17 10:49 Freq: Status: Active Protocol: Document 12/14/17 11:58 RCC (Rec: 12/15/17 17:50 RCC [email or web address]) Shoulder Goniometric Range of Motion Shoulder Measured in Degrees Left Active Testing Position Sitting Flexion 145 Abduction 160 External Rotation at 0 degrees Abduction 60 PT-OP-L Special Tests Start: 09/08/17 10:49 Freq: Status: Active Protocol: Document 09/08/17 10:30 RCC (Rec: 09/08/17 14:52 RCC [email or web address]) Special Tests Cervical Spine Special Tests Spurling's Test Test Results Negative Shoulder Special Tests Lift-Off Rotator Cuff Test Results negative B Empty Can Test Results positive L, negative R AC Joint Compression Test Results positive L, negative R Anderson Cole Impingement Test Results positive L, negative R Load and Shift Test Results negative B Speed's Biceps Test Results negative B Apprehension Test Test Results negative B Knee Special Tests Eccentric step down test Test Results positive for pain on the L Comments 6 step Varus- 25 Degrees Test Results negative B Varus- 0 Degrees Test Results negative B Valgus- 25 Degrees Test Results negative B Valgus- 0 Degrees Test Results negative B PT-OP-M Strength Start: 09/08/17 10:49 Freq: Status: Active Protocol: Document 12/14/17 11:58 RCC (Rec: 12/15/17 17:50 RCC [email or web address]) Shoulder Strength Shoulder Manual Muscle Testing Left Flexion 4+ Good+ Abduction (C5) 4 Good External Rotation 4+ Good+ Internal Rotation 5 Normal Elbow/Forearm Strength Elbow and Forearm Manual Muscle Testing Left Flexion (C6) 4+ Good+ Extension (C7) 5 Normal PT-OP-Q Treatments Start: 09/08/17 10:49 Freq: Status: Active Protocol: Document 01/11/18 12:43 RCC (Rec: 01/14/18 12:51 RCC [email or web address]) Therapeutic Exercises Sitting Exercises scapular retraction Side bilateral Reps/Minutes x15 Comments hold 3 sec, tactile cuing pulleys Sitting Exercise Name flexion and abduction Side bilateral Reps/Minutes 10 reps each Manual Therapy Treatment Soft Tissue Mobilization rhomboids Body Location L rhomboids Mobilization Type Rolling Intensity/Depth Moderate Body Position Sitting 4 Body Location L biceps brachii Mobilization Type Strumming Intensity/Depth Moderate Body Position Sitting 2 Body Location L pectorals Mobilization Type Strumming Intensity/Depth Moderate Body Position Sitting Joint Mobilizations [address] joint Direction lateral, upward rotation Grade III Body Position Sitting Reps/Duration 12 min PT-OP-R Modalities Start: 09/08/17 10:49 Freq: Status: Active Protocol: Document 11/23/17 15:15 RCC (Rec: 11/23/17 17:27 RCC [email or web address]) Hot Pack/Cold Pack Treatment Cold Pack Location L Shoulder and biceps Patient Position Sitting Treatment Duration (minutes) 10 Patient Tolerance Good Comments wrapped for compression PT-OP-S Aquatic Treatment Start: 12/21/17 15:20 Freq: Status: Active Protocol: Document 03/15/18 10:15 MARIE (Rec: 03/15/18 14:42 LJ [email or web address]) Aquatics Treatment Pool Entry/Exit Pool Entry/Exit Method Stairs Assistance Independent Water Walking Monster Walk Water Level Chest Level Comments #3 ankle wts Sideways Water Level Chest Level Forwards Water Level Chest Level Comments #3 ankle wts, cues for posture Lower Extremity Exercises step up/down Details all ways 3 Details hip flex/ext, ab/ad, HS curls Body Position Standing Water Level Chest Level Reps/Duration min assist w/UEs Comments #3 wts 1 Details squats Body Position Standing Water Level Chest Level Reps/Duration 20 mini Lower Extremity Stretches 1 Details heel cord, HS Comments gastroc and soleus Upper Extremity Exercises 7 Details wipers Body Position Sitting Reps/Duration 20 reps Comments seated on table, manual cues 6 Details ab/ad Body Position Standing Water Level Neck Level Reps/Duration 20 reps Comments standing 5 Details bicep curl/ ext Body Position Standing Water Level Chest Level Reps/Duration 10 reps 4 Details flex/ext Body Position Standing Water Level Chest Level Reps/Duration 20 Upper Extremity Stretches IR/ER-horizontal and vertical Reps/Duration 5 horiz; 10 vert 1 Details forward walking arms extended Water Level Chest Level Equipment UE paddles Sanderson Activities Sanderson Activities Bicycle Cross Country Manual Techniques [place] 8 min focusing on LUE extension and abduction PT-OP-T Assessment and Plan Start: 09/08/17 10:49 Freq: Status: Active Protocol: Document 03/15/18 10:15 MARIE (Rec: 03/15/18 14:42 LJ [email or web address]) Physical Therapy Assessment Goals Five Impairment LE strength Group Home Goal (LTG) knee flexion and extension, hip flexion, ER and IR to 4+/5 or greater prior to d/c. Four Impairment UE weakness Paint Crew Supervisor Goal (LTG) Shoulder flexion, elbow flexion and extension at least 4+/5, and shoulder abduction, ER, IR 5/5 with manual muscle testing. 12/14/17: good progress. Three Impairment Impaired gait tolerance Short Term Goal (STG) Pt will be compliant with a walking program 3 days per week for 20 mins. 12/14/17: goal achieved Paint Crew Supervisor Goal (LTG) Pt will be compliant with a walking program, 5 days per week for 30 mins. 12/14/17: progressing toward goal. Two Impairment L shoulder ROM Paint Crew Supervisor Goal (LTG) L shoulder flexion and abduction to 150 deg, ER to 70 deg. prior to d/c for functional reaching overhead. 12/14/17: ER to 60 deg, flexion to 145 deg. One Impairment L shoulder pain 9/10 Short Term Goal (STG) 6/10 or less rated L shoulder pain Paint Crew Supervisor Goal (LTG) 4/10 or less rated L shoulder pain 12/14/17: pain rated 5/10 L shoulder Progress Towards Goals Progress Towards Goals Progressing Toward Goals Slow Progress due to Activity Tolerance Slow Progress due to Medical Issues Assessment Summary Assessment Pt demonstrates good postural awareness and able to self correct w/o cues most of the time. Discussed HEP for continuing UE exercises and strategies for making dressing self less painful with altered body positioning. Gave pt aquatic exercises to do independently. Physical Therapy Plan Frequency and Duration Frequency of Treatment 2x/Week Duration of Treatment 8 weeks Plan of Care Start Date 12/14/17 Plan of Care End Date 02/08/18 Therapeutic Interventions Therapeutic Interventions Aquatic Therapy Balance Training Gait Training Home Exercise Program Joint Mobilizations Manual Therapy Neuromuscular Re-education Patient/Caregiver Education Self-Care/Home Management Soft Tissue Mobilization Taping Therapeutic Activities Therapeutic Exercises Discharge Physical Therapy Discharge Reasons Patient Request Next Visit Focus/Plan Next Note Type Treatment Note Next Visit Plan Advised pt that this was her last aquatic session. Encouraged pt to explore options for continuing aquatic exercise independently
--- NOTE | 2018-03-21 08:42 | PT.OTRE ---
Late entry for 02/08/18) Current Diagnoses Type 2 diabetes mellitus without complications (03/15/18) Morbid (severe) obesity due to excess calories (03/15/18) Primary osteoarthritis, left shoulder (03/15/18) Impingement syndrome of left shoulder (03/15/18) Body mass index (BMI) 50-59.9, adult (03/15/18) Past Medical History (Last Reviewed 12/06/17 @ 11:58 by Ivan Recinos MD) Morbid obesity with BMI of 40.0-44.9, adult (Chronic) Excessive daytime sleepiness (Chronic) Diabetes type 2, controlled (Chronic) Essential hypertension (Chronic 02/04/11) Morbid obesity (Chronic 02/04/11) Mixed hyperlipidemia (Chronic 02/04/11) Asthma (Chronic ~1958) Peripheral neuropathy (Chronic ~2015) Shoulder pain (Chronic ~2016) Foot pain (Chronic ~1999) Fibromyalgia (Chronic) Carpal tunnel syndrome (Chronic ~1997) Ankle pain (Chronic ~1953) Rosacea (Chronic ~1989) History of recurrent ear infection (Chronic ~1955) Hearing loss (Chronic ~1955) Cataracts, bilateral (Chronic ~1999) Obstructive sleep apnea syndrome (Chronic 02/04/11) Glaucoma (Chronic 02/04/11) Chicken pox (Resolved ~1953) Chlamydia (Resolved ~1976) Endometriosis (Resolved) Fibroids (Resolved) Measles (Resolved ~1953) Menstrual cycle disorder (Resolved ~1961) Rubella (Resolved ~1955) Type 2 diabetes mellitus without complication, with long-term current use of insulin (Resolved 01/10/17) Surgical History (Last Reviewed 12/06/17 @ 11:58 by Ivan Recinos MD) Anesthesia (Resolved) Surgical procedure planned (Resolved) History of tonsillectomy (~1952) Status post hysterectomy (~1986) Provider Visit Care Team Role Provider Type Ivan Recinos MD Family Provider Physician Primary Care Provider Specialty: Internal Medicine Address: [address] [place] [address], [id number] Email: [email or web address] Herndon Attending Provider Advanced Bottled Beverage Inspector Specialty: Medical Address: [address] [place] [address], [id number] Email: Physical Therapy Re-Evaluation PT-OP-A Visit Information Start: 09/08/17 10:49 Freq: Status: Active Protocol: Document 02/08/18 1600 SK (Rec: 03/15/18 14:42 SK [email or web address]) Out-Patient Physical Therapy Visit Information Visit Information Visit Type Aquatic Treatment Note Visit Start Time 10:15 Visit Stop Time 11:00 Total Visit Minutes 45 Visit Number 31 Number of DATABASE SOFTWARE TECHNICIAN Visits 5 PT-OP-B Current Condition Start: 09/08/17 10:49 Freq: Status: Active Protocol: Document 09/08/17 10:30 RCC (Rec: 09/08/17 11:04 RCC [email or web address]) Current Condition History of Current Condition Onset Date years ago Current Complaints L shoulder and impaired ability to walk History of Current Condition Pt is a 71 y/o female presenting to physical therapy with a c/o L shoulder pain, as well as bilateral knee pain and swelling L>R limiting her ability to ambulate long distances. Pt notes that she had PT prior for L shoulder with some results, but now is painful when doing her exercises. She sleeps in a upright chair with an ice pack on the L shoulder due to having pain lying down in bed, normally sleeping 2-3 hrs a night. Pt notes that this sleeping position increases her LE swelling. She does not wear compression stockings because they are expensive and Medicare does not cover them. She is waiting on new orthotics to get new shoes. She has to support her L arm most of the time due to pain is she lets it hang. She had an injection in the shoulder which worked for 4 days, and effects wore off before she even had PT last time around. Pt takes Tylenol for pain, and ice helps sometimes. She reports that her orthopedic surgeon suggested that she not do surgery on her shoulder at this point. Pt is undergoing obesity counseling, and is referred for mobility and physical activity with a goal of weight loss, as well as chronic knee and L shoulder pain. Prior Treatments and Tests MRI L shoulder 04/21/2017: Moderate AC joint degeneration , no nearby rotator cuff tears . Irregular globular signal within the superior labrum suggests superior labral tear (SLAP type I or II pathology). No para labral cyst formation . Treatment Goals Patient/Caregiver Goals 1: decrease shoulder pain, 2: increase knee and LE strength to tolerate walking. Prior Functional Status Baseline Function- ADL's Modified Independent Baseline Function- Mobility Modified Independent Baseline Function- Gait community ambulation without device. Current Functional Impairments (Reported) Functional Limitations- ADL's modified indep. Functional Limitations- Mobility/Gait Indep community gait 2 days per week, with increased pain and fatigue. PT-OP-C Subjective Start: 09/08/17 10:49 Freq: Status: Active Protocol: Document 03/15/18 10:15 LJ (Rec: 03/15/18 14:42 LJ [email or web address]) OP-PT Subjective Patient Comments Patient Comments Pt has no new complaints. States she is able to do better on stairs and has slight pain in ant. LUE as before. PT-OP-F Manual Assessment Start: 09/08/17 10:49 Freq: Status: Active Protocol: Document 01/11/18 12:43 RCC (Rec: 01/14/18 12:51 RCC [email or web address]) Manual Assessments Joint Mobility Assessment Joint Mobility Assessment moderate restriction L scapular upward rotation PT-OP-G Mobility & Gait Start: 09/08/17 10:49 Freq: Status: Active Protocol: Document 09/08/17 10:30 RCC (Rec: 09/08/17 13:39 RCC [email or web address]) OP Gait Assessment Comments Gait Comments Mildly antalgic, increased lateral sway, decreased step length on the L. PT-OP-H Neuro Start: 09/08/17 10:49 Freq: Status: Active Protocol: Document 09/08/17 10:30 RCC (Rec: 09/08/17 13:39 RCC [email or web address]) Sensation Evaluation Comments Summary Comments Impaired sensation B toes, intact plantar and dorsal surface of feet. Deep Tendon Reflex & Clonus Assessment Deep Tendon Reflex Bilateral Achilles Deep Tendon Reflex 1+ Diminished Bilateral Patellar Deep Tendon Reflex 1+ Diminished Ankle Clonus Bilateral Clonus Assessment Absent PT-OP-K Range of Motion Start: 09/08/17 10:49 Freq: Status: Active Protocol: Document 12/14/17 11:58 RCC (Rec: 12/15/17 17:50 RCC [email or web address]) Shoulder Goniometric Range of Motion Shoulder Measured in Degrees Left Active Testing Position Sitting Flexion 145 Abduction 160 External Rotation at 0 degrees Abduction 60 PT-OP-L Special Tests Start: 09/08/17 10:49 Freq: Status: Active Protocol: Document 09/08/17 10:30 RCC (Rec: 09/08/17 14:52 RCC [email or web address]) Special Tests Cervical Spine Special Tests Spurling's Test Test Results Negative Shoulder Special Tests Lift-Off Rotator Cuff Test Results negative B Empty Can Test Results positive L, negative R AC Joint Compression Test Results positive L, negative R Anderson Cole Impingement Test Results positive L, negative R Load and Shift Test Results negative B Speed's Biceps Test Results negative B Apprehension Test Test Results negative B Knee Special Tests Eccentric step down test Test Results positive for pain on the L Comments 6 step Varus- 25 Degrees Test Results negative B Varus- 0 Degrees Test Results negative B Valgus- 25 Degrees Test Results negative B Valgus- 0 Degrees Test Results negative B PT-OP-M Strength Start: 09/08/17 10:49 Freq: Status: Active Protocol: Document 12/14/17 11:58 RCC (Rec: 12/15/17 17:50 RCC [email or web address]) Shoulder Strength Shoulder Manual Muscle Testing Left Flexion 4+ Good+ Abduction (C5) 4 Good External Rotation 4+ Good+ Internal Rotation 5 Normal Elbow/Forearm Strength Elbow and Forearm Manual Muscle Testing Left Flexion (C6) 4+ Good+ Extension (C7) 5 Normal PT-OP-Q Treatments Start: 09/08/17 10:49 Freq: Status: Active Protocol: Document 01/11/18 12:43 RCC (Rec: 01/14/18 12:51 RCC [email or web address]) Therapeutic Exercises Sitting Exercises scapular retraction Side bilateral Reps/Minutes x15 Comments hold 3 sec, tactile cuing pulleys Sitting Exercise Name flexion and abduction Side bilateral Reps/Minutes 10 reps each Manual Therapy Treatment Soft Tissue Mobilization rhomboids Body Location L rhomboids Mobilization Type Rolling Intensity/Depth Moderate Body Position Sitting 4 Body Location L biceps brachii Mobilization Type Strumming Intensity/Depth Moderate Body Position Sitting 2 Body Location L pectorals Mobilization Type Strumming Intensity/Depth Moderate Body Position Sitting Joint Mobilizations [address] joint Direction lateral, upward rotation Grade III Body Position Sitting Reps/Duration 12 min PT-OP-R Modalities Start: 09/08/17 10:49 Freq: Status: Active Protocol: Document 11/23/17 15:15 RCC (Rec: 11/23/17 17:27 RCC [email or web address]) Hot Pack/Cold Pack Treatment Cold Pack Location L Shoulder and biceps Patient Position Sitting Treatment Duration (minutes) 10 Patient Tolerance Good Comments wrapped for compression PT-OP-T Assessment and Plan Start: 09/08/17 10:49 Freq: Status: Active Protocol: Document 03/15/18 10:15 MARIE (Rec: 03/15/18 14:42 MARIE [email or web address]) Physical Therapy Assessment Goals Five Impairment LE strength Talent Acquisition Project Manager Goal (LTG) knee flexion and extension, hip flexion, ER and IR to 4+/5 or greater prior to d/c. 02/08/18: good goal progress Four Impairment UE weakness Jail Goal (LTG) Shoulder flexion, elbow flexion and extension at least 4+/5, and shoulder abduction, ER, IR 5/5 with manual muscle testing. 12/14/17: good progress 02/08/18: good goal progress Three Impairment Impaired gait tolerance Short Term Goal (STG) Pt will be compliant with a walking program 3 days per week for 20 mins. 12/14/17: goal achieved Jail Goal (LTG) Pt will be compliant with a walking program, 5 days per week for 30 mins. 12/14/17: progressing toward goal. 02/08/18: good goal progress Two Impairment L shoulder ROM Jail Goal (LTG) L shoulder flexion and abduction to 150 deg, ER to 70 deg. prior to d/c for functional reaching overhead. 12/14/17: ER to 60 deg, flexion to 145 deg. 02/08/18: good goal progress One Impairment L shoulder pain 9/10 Short Term Goal (STG) 6/10 or less rated L shoulder pain 02/08/18: goal met Talent Acquisition Project Manager Goal (LTG) 4/10 or less rated L shoulder pain 12/14/17: pain rated 5/10 L shoulder 02/08/18: good goal progress Progress Towards Goals Progress Towards Goals Progressing Toward Goals Slow Progress due to Activity Tolerance Slow Progress due to Medical Issues Assessment Summary Assessment Patient making good progress with decreasing pain and improving left shoulder function, decreasing LE pain and improved gait. Would benefit from further aquatic PT to help her fully achieve her goals and transition to community-based exercise program and HEP.L Physical Therapy Plan Frequency and Duration Frequency of Treatment 2x/Week Duration of Treatment 8 weeks Plan of Care Start Date 02/08/18 Plan of Care End Date 04/20/18 Therapeutic Interventions Therapeutic Interventions Aquatic Therapy Balance Training Gait Training Home Exercise Program Joint Mobilizations Manual Therapy Neuromuscular Re-education Patient/Caregiver Education Self-Care/Home Management Soft Tissue Mobilization Taping Therapeutic Activities Therapeutic Exercises Discharge Physical Therapy Discharge Reasons Patient Request Next Visit Focus/Plan Next Note Type Treatment Note Next Visit Plan Continue PT to address her goals Transition toward independent aquatic exercise progam for long-term fitness and pain management.
--- NOTE | 2018-03-21 08:59 | PT.OPDS ---
Current Diagnoses Type 2 diabetes mellitus without complications (03/15/18) Morbid (severe) obesity due to excess calories (03/15/18) Primary osteoarthritis, left shoulder (03/15/18) Impingement syndrome of left shoulder (03/15/18) Body mass index (BMI) 50-59.9, adult (03/15/18) Provider Visit Care Team Role Provider Type Ivan Recinos MD Family Provider Physician Primary Care Provider Specialty: Internal Medicine Address: [address] [place] [address], [id number] Email: [email or web address] NATALIO Herndon Attending Provider Advanced Childhood Development Teacher Specialty: Medical Address: [address] [place] [address], [id number] Email: Visit Number Visit Number 31 Discharge Summary PT-OP-B Current Condition Start: 09/08/17 10:49 Freq: Status: Active Protocol: Document 09/08/17 10:30 RCC (Rec: 09/08/17 11:04 RCC [email or web address]) Current Condition History of Current Condition Onset Date years ago Current Complaints L shoulder and impaired ability to walk History of Current Condition Pt is a 71 y/o female presenting to physical therapy with a c/o L shoulder pain, as well as bilateral knee pain and swelling L>R limiting her ability to ambulate long distances. Pt notes that she had PT prior for L shoulder with some results, but now is painful when doing her exercises. She sleeps in a upright chair with an ice pack on the L shoulder due to having pain lying down in bed, normally sleeping 2-3 hrs a night. Pt notes that this sleeping position increases her LE swelling. She does not wear compression stockings because they are expensive and Medicare does not cover them. She is waiting on new orthotics to get new shoes. She has to support her L arm most of the time due to pain is she lets it hang. She had an injection in the shoulder which worked for 4 days, and effects wore off before she even had PT last time around. Pt takes Tylenol for pain, and ice helps sometimes. She reports that her orthopedic surgeon suggested that she not do surgery on her shoulder at this point. Pt is undergoing obesity counseling, and is referred for mobility and physical activity with a goal of weight loss, as well as chronic knee and L shoulder pain. Prior Treatments and Tests MRI L shoulder 04/21/2017: Moderate AC joint degeneration , no nearby rotator cuff tears . Irregular globular signal within the superior labrum suggests superior labral tear (SLAP type I or II pathology). No para labral cyst formation . Treatment Goals Patient/Caregiver Goals 1: decrease shoulder pain, 2: increase knee and LE strength to tolerate walking. Prior Functional Status Baseline Function- ADL's Modified Independent Baseline Function- Mobility Modified Independent Baseline Function- Gait community ambulation without device. Current Functional Impairments (Reported) Functional Limitations- ADL's modified indep. Functional Limitations- Mobility/Gait Indep community gait 2 days per week, with increased pain and fatigue. PT-OP-C Subjective Start: 09/08/17 10:49 Freq: Status: Active Protocol: Document 03/15/18 10:15 LJ (Rec: 03/15/18 14:42 LJ [email or web address]) OP-PT Subjective Patient Comments Patient Comments Pt has no new complaints. States she is able to do better on stairs and has slight pain in ant. LUE as before. PT-OP-F Manual Assessment Start: 09/08/17 10:49 Freq: Status: Active Protocol: Document 01/11/18 12:43 RCC (Rec: 01/14/18 12:51 RCC [email or web address]) Manual Assessments Joint Mobility Assessment Joint Mobility Assessment moderate restriction L scapular upward rotation PT-OP-G Mobility & Gait Start: 09/08/17 10:49 Freq: Status: Active Protocol: Document 09/08/17 10:30 RCC (Rec: 09/08/17 13:39 RCC [email or web address]) OP Gait Assessment Comments Gait Comments Mildly antalgic, increased lateral sway, decreased step length on the L. PT-OP-H Neuro Start: 09/08/17 10:49 Freq: Status: Active Protocol: Document 09/08/17 10:30 RCC (Rec: 09/08/17 13:39 RCC [email or web address]) Sensation Evaluation Comments Summary Comments Impaired sensation B toes, intact plantar and dorsal surface of feet. Deep Tendon Reflex & Clonus Assessment Deep Tendon Reflex Bilateral Achilles Deep Tendon Reflex 1+ Diminished Bilateral Patellar Deep Tendon Reflex 1+ Diminished Ankle Clonus Bilateral Clonus Assessment Absent PT-OP-K Range of Motion Start: 09/08/17 10:49 Freq: Status: Active Protocol: Document 12/14/17 11:58 RCC (Rec: 12/15/17 17:50 RCC [email or web address]) Shoulder Goniometric Range of Motion Shoulder Measured in Degrees Left Active Testing Position Sitting Flexion 145 Abduction 160 External Rotation at 0 degrees Abduction 60 PT-OP-L Special Tests Start: 09/08/17 10:49 Freq: Status: Active Protocol: Document 09/08/17 10:30 RCC (Rec: 09/08/17 14:52 RCC [email or web address]) Special Tests Cervical Spine Special Tests Spurling's Test Test Results Negative Shoulder Special Tests Lift-Off Rotator Cuff Test Results negative B Empty Can Test Results positive L, negative R AC Joint Compression Test Results positive L, negative R Anderson Cole Impingement Test Results positive L, negative R Load and Shift Test Results negative B Speed's Biceps Test Results negative B Apprehension Test Test Results negative B Knee Special Tests Eccentric step down test Test Results positive for pain on the L Comments 6 step Varus- 25 Degrees Test Results negative B Varus- 0 Degrees Test Results negative B Valgus- 25 Degrees Test Results negative B Valgus- 0 Degrees Test Results negative B PT-OP-M Strength Start: 09/08/17 10:49 Freq: Status: Active Protocol: Document 12/14/17 11:58 RCC (Rec: 12/15/17 17:50 RCC [email or web address]) Shoulder Strength Shoulder Manual Muscle Testing Left Flexion 4+ Good+ Abduction (C5) 4 Good External Rotation 4+ Good+ Internal Rotation 5 Normal Elbow/Forearm Strength Elbow and Forearm Manual Muscle Testing Left Flexion (C6) 4+ Good+ Extension (C7) 5 Normal PT-OP-T Assessment and Plan Start: 09/08/17 10:49 Freq: Status: Active Protocol: Document 03/15/18 10:15 LJ (Rec: 03/15/18 14:42 LJ [email or web address]) Physical Therapy Assessment Goals Five Impairment LE strength Caustic Operator Goal (LTG) knee flexion and extension, hip flexion, ER and IR to 4+/5 or greater prior to d/c. Four Impairment UE weakness Caustic Operator Goal (LTG) Shoulder flexion, elbow flexion and extension at least 4+/5, and shoulder abduction, ER, IR 5/5 with manual muscle testing. 12/14/17: good progress. Three Impairment Impaired gait tolerance Short Term Goal (STG) Pt will be compliant with a walking program 3 days per week for 20 mins. 12/14/17: goal achieved Caustic Operator Goal (LTG) Pt will be compliant with a walking program, 5 days per week for 30 mins. 12/14/17: progressing toward goal. Two Impairment L shoulder ROM Jail Goal (LTG) L shoulder flexion and abduction to 150 deg, ER to 70 deg. prior to d/c for functional reaching overhead. 12/14/17: ER to 60 deg, flexion to 145 deg. One Impairment L shoulder pain 9/10 Short Term Goal (STG) 6/10 or less rated L shoulder pain Caustic Operator Goal (LTG) 4/10 or less rated L shoulder pain 12/14/17: pain rated 5/10 L shoulder Progress Towards Goals Progress Towards Goals Progressing Toward Goals Slow Progress due to Activity Tolerance Slow Progress due to Medical Issues Assessment Summary Assessment Pt demonstrates good postural awareness and able to self correct w/o cues most of the time. Discussed HEP for continuing UE exercises and strategies for making dressing self less painful with altered body positioning. Gave pt aquatic exercises to do independently. Physical Therapy Plan Frequency and Duration Frequency of Treatment 2x/Week Duration of Treatment 8 weeks Plan of Care Start Date 12/14/17 Plan of Care End Date 02/08/18 Therapeutic Interventions Therapeutic Interventions Aquatic Therapy Balance Training Gait Training Home Exercise Program Joint Mobilizations Manual Therapy Neuromuscular Re-education Patient/Caregiver Education Self-Care/Home Management Soft Tissue Mobilization Taping Therapeutic Activities Therapeutic Exercises Discharge Physical Therapy Discharge Reasons Patient Request Next Visit Focus/Plan Next Note Type Treatment Note Next Visit Plan Advised pt that this was her last aquatic session. Encouraged pt to explore options for continuing aquatic exercise independently
== END 2018-03-21 10:16 ==
LOC: PHYS 10:15
PROVIDERS: Family Provider Internal Medicine; PCP Internal Medicine; Visit Provider Registered Nurse
DX: E11.9 Type 2 diabetes mellitus without complications (principal); Z68.43 Body mass index [BMI] 50.0-59.9, adult; E66.01 Morbid (severe) obesity due to excess calories; M75.42 Impingement syndrome of left shoulder; M19.012 Primary osteoarthritis, left shoulder
CPT/HCPCS: 97010; 97014; 97032; 97035; 97110; 97113; 97140; 97162; G0283

== ENCOUNTER → 2018-04-22 11:05 | Outpatient (CLI) | payer MEDICARE, OTHER, SELFPAY ==
[2018-04-22 11:51] LABS: Hemoglobin A1C% w Est Avg Glu 7.1 % (4.0-6.0)
[2018-04-22 12:05] LABS: Alanine Aminotransferase 28 IU/L (9-52); Albumin 4.9 g/dL (3.5-5.0); Alkaline Phosphatase 38 U/L (38-126); Aspartate Aminotransferase 20 IU/L (14-36); BUN Creatinine Ratio 26.9 (6-22); Bilirubin Total 0.3 mg/dL (0.2-1.3); Blood Urea Nitrogen 43 mg/dL (7-17); Calcium 11.1 mg/dL (8.4-10.2); Carbon Dioxide 28 mmol/L (22-32); Chloride 101 mmol/L (98-107); Estimated Glomerular Filt Rate 31.9 mL/min (>60); Globulin 2.5 g/dL (1.7-4.1); Glucose 163 mg/dL (80-110); HEMOLYSIS < 15 (0-50); Sodium 141 mmol/L (137-145); Total Protein 7.4 g/dL (6.3-8.2)
[2018-04-22 12:07] LABS: Potassium 5.8 mmol/L (3.4-5.1)
[2018-04-22 12:18] LABS: Creatinine Urine Random 39.9 mg/dL
[2018-04-22 12:25] LABS: Microalbumin Urine Random 1.2 mg/dL (0-1.6)
== END ==
PROVIDERS: PCP Internal Medicine; Visit Provider Internal Medicine
DX: E11.9 Type 2 diabetes mellitus without complications (principal); E66.01 Morbid (severe) obesity due to excess calories; I10 Essential (primary) hypertension
CPT/HCPCS: 36415; 80053; 82043; 82570; 83036

== ENCOUNTER → 2018-05-15 07:52 | Outpatient (CLI) | payer MEDICARE, OTHER, SELFPAY ==
[2018-05-15 09:19] LABS: HEMOLYSIS < 15 (0-50)
[2018-05-15 09:35] LABS: Potassium 5.5 mmol/L (3.4-5.1)
[2018-05-15 10:15] LABS: Cortisol Random 1.12 ug/dL
== END ==
PROVIDERS: PCP Internal Medicine; Visit Provider Student in an Organized Health Care Education/Training Program
DX: E11.42 Type 2 diabetes mellitus with diabetic polyneuropathy (principal); E87.5 Hyperkalemia
CPT/HCPCS: 36415; 82533; 84132

== ENCOUNTER → 2018-06-10 12:21 | Outpatient (CLI) | payer MEDICARE, OTHER, SELFPAY ==
[2018-06-10 14:06] LABS: HEMOLYSIS < 15 (0-50); Potassium 4.6 mmol/L (3.4-5.1)
== END ==
PROVIDERS: PCP Internal Medicine; Visit Provider Student in an Organized Health Care Education/Training Program
DX: E87.5 Hyperkalemia (principal)
CPT/HCPCS: 36415; 84132

== ENCOUNTER → 2018-10-21 11:02 | Outpatient (CLI) | payer MEDICARE, OTHER, SELFPAY ==
[2018-10-21 12:23] LABS: Alanine Aminotransferase 18 IU/L (9-52); Albumin 4.9 g/dL (3.5-5.0); Albumin Globulin Ratio 1.8 (1.0-2.8); Alkaline Phosphatase 36 U/L (38-126); Aspartate Aminotransferase 24 IU/L (14-36); BUN Creatinine Ratio 34.4 (6-22); Bilirubin Total 0.5 mg/dL (0.2-1.3); Blood Urea Nitrogen 55 mg/dL (7-17); Calcium 10.5 mg/dL (8.4-10.2); Carbon Dioxide 26 mmol/L (22-32); Chloride 101 mmol/L (98-107); Cholesterol 158 mg/dL (140-199); Estimated Glomerular Filt Rate 31.8 mL/min (>60); Globulin 2.8 g/dL (1.7-4.1); Glucose 221 mg/dL (80-110); HDL Cholesterol 35 mg/dL (40-60); HEMOLYSIS < 15 (0-50); LDL Cholesterol Calculated 53 mg/dL (<100); Potassium 4.9 mmol/L (3.4-5.1); Sodium 141 mmol/L (137-145); Total Protein 7.7 g/dL (6.3-8.2); Triglycerides 349 mg/dL (35-150)
== END ==
PROVIDERS: Family Provider Student in an Organized Health Care Education/Training Program; PCP Internal Medicine; Visit Provider Internal Medicine
DX: E11.65 Type 2 diabetes mellitus with hyperglycemia (principal); E66.01 Morbid (severe) obesity due to excess calories; E78.2 Mixed hyperlipidemia; Z68.41 Body mass index [BMI] 40.0-44.9, adult; I10 Essential (primary) hypertension
CPT/HCPCS: 36415; 80053; 80061; 83036

== ENCOUNTER → 2019-01-22 11:24 | Outpatient (CLI) | payer MEDICARE, OTHER, SELFPAY ==
[2019-01-22 12:32] LABS: Hemoglobin A1C% w Est Avg Glu 7.5 % (4.0-6.0)
[2019-01-22 12:38] LABS: BUN Creatinine Ratio 30.8 (6-22); Blood Urea Nitrogen 40 mg/dL (7-17); Calcium 10.9 mg/dL (8.4-10.2); Carbon Dioxide 29 mmol/L (22-32); Chloride 104 mmol/L (98-107); Estimated Glomerular Filt Rate 40.4 mL/min (>60); Glucose 206 mg/dL (80-110); HEMOLYSIS < 15 (0-50); Sodium 142 mmol/L (137-145)
[2019-01-22 12:41] LABS: Potassium 5.9 mmol/L (3.4-5.1)
== END ==
PROVIDERS: Family Provider Student in an Organized Health Care Education/Training Program; PCP Internal Medicine; Visit Provider Internal Medicine
DX: E11.65 Type 2 diabetes mellitus with hyperglycemia (principal); E66.01 Morbid (severe) obesity due to excess calories; Z68.41 Body mass index [BMI] 40.0-44.9, adult
CPT/HCPCS: 36415; 80048; 83036

== ENCOUNTER → 2019-03-01 09:22 | Outpatient (CLI) | payer MEDICARE, OTHER, SELFPAY ==
[2019-03-01 10:40] LABS: Creatinine Urine Random 64.4 mg/dL; Protein (Total) Urine Random 9 mg/dL (0-12)
[2019-03-01 11:08] LABS: Albumin 4.9 g/dL (3.5-5.0); HEMOLYSIS < 15 (0-50)
[2019-03-01 14:47] LABS: BUN Creatinine Ratio 44.4 (6-22); Blood Urea Nitrogen 71 mg/dL (7-17); Calcium 11.3 mg/dL (8.4-10.2); Carbon Dioxide 25 mmol/L (22-32); Chloride 100 mmol/L (98-107); Estimated Glomerular Filt Rate 31.8 mL/min (>60); Glucose 96 mg/dL (80-110); Phosphorous 4.3 mg/dL (2.8-4.1); Potassium 4.7 mmol/L (3.4-5.1); Sodium 140 mmol/L (137-145)
[2019-03-03 15:09] LABS: Parathyroid Hormone Int 62 pg/mL (14-64)
== END ==
PROVIDERS: PCP Internal Medicine; Visit Provider Internal Medicine Nephrology
DX: N18.3 Chronic kidney disease, stage 3 (moderate) (principal); F51.12 Insufficient sleep syndrome; G47.00 Insomnia, unspecified; G47.19 Other hypersomnia; E66.01 Morbid (severe) obesity due to excess calories; Z99.89 Dependence on other enabling machines and devices; Z68.41 Body mass index [BMI] 40.0-44.9, adult
CPT/HCPCS: 36415; 80069; 82570; 83970; 84156; 84550; 99214

== ENCOUNTER → 2019-03-23 11:10 | Outpatient (CLI) | payer MEDICARE, OTHER, SELFPAY ==
--- NOTE | 2019-03-23 | DI.US.S_ITS ---
PROCEDURE: US RENAL COMPLETE INDICATIONS: CHRONIC KIDNEY DISEASE, MODERATE, STAGE 3 TECHNIQUE: Real-time scanning was performed of the kidneys and bladder, with image documentation. COMPARISON: None. FINDINGS: Kidneys: Kidneys are normal in size. Right kidney measures 11.7 cm long; left kidney measures 11.0 cm long. Right renal cortical thickness is 1.4 cm; left renal cortical thickness is 1.2 cm. Renal cortical echotexture is normal. No hydronephrosis or nephrolithiasis. No suspicious solid mass lesions. Bladder: Pre-void bladder volume is 310 mL. Post-void residual is 0 mL. Pre-void images demonstrate no intraluminal masses or stones. On pre-void images, neither ureteral jets are noted with color Doppler interrogation. (Of note, ureteral jets may not be detectable in up to 25% of cases due to insufficient differences in specific gravity between ureteral and bladder urine). Miscellaneous: No free pelvic fluid. IMPRESSION: No hydronephrosis or nephrolithiasis or urinary retention at the bladder level. Dictated by: Yuan Quezada M.D. on 03/23/2019 at 15:09 Approved by: Yuan Quezada M.D. on 03/23/2019 at 15:10
== END ==
PROVIDERS: PCP Internal Medicine; Visit Provider Internal Medicine Nephrology
DX: N18.3 Chronic kidney disease, stage 3 (moderate) (principal)
CPT/HCPCS: 76770

== ENCOUNTER → 2019-05-24 17:16 | Outpatient (CLI) | payer MEDICARE, OTHER, SELFPAY | PROVIDERS: PCP Internal Medicine; Visit Provider Physician Assistant | DX: L97.209 Non-pressure chronic ulcer of unspecified calf with unspecified severity (principal) | CPT/HCPCS: 87070; 87075; 87077; 87205 ==

== ENCOUNTER → 2019-06-08 08:46 | Outpatient (CLI) | payer MEDICARE, OTHER, SELFPAY ==
[2019-06-08 09:43] LABS: Hemoglobin A1C% w Est Avg Glu 10.2 % (4.0-6.0)
[2019-06-08 09:52] LABS: Alanine Aminotransferase 18 IU/L (<35); Albumin 4.7 g/dL (3.5-5.0); Albumin Globulin Ratio 1.6 (1.0-2.8); Alkaline Phosphatase 47 U/L (38-126); Aspartate Aminotransferase 25 IU/L (14-36); Bilirubin Total 0.4 mg/dL (0.2-1.3); Blood Urea Nitrogen 55 mg/dL (7-17); Calcium 10.9 mg/dL (8.4-10.2); Carbon Dioxide 26 mmol/L (22-32); Chloride 98 mmol/L (98-107); Cholesterol 172 mg/dL (140-199); Estimated Glomerular Filt Rate 41.1 mL/min (>60); Globulin 2.9 g/dL (1.7-4.1); Glucose 307 mg/dL (80-110); HDL Cholesterol 26 mg/dL (40-60); HEMOLYSIS < 15 (0-50); Potassium 3.6 mmol/L (3.4-5.1); Sodium 137 mmol/L (137-145); Total Protein 7.6 g/dL (6.3-8.2); Triglycerides 488 mg/dL (35-150)
[2019-06-08 10:33] LABS: Vitamin D 25 Hydroxy (D3) 39.6 ng/mL (30.0-100.0)
[2019-06-09 06:35] LABS: Parathyroid Hormone Int 30 pg/mL (15-65)
== END ==
PROVIDERS: Internal Medicine Nephrology; PCP Internal Medicine; Referring Provider Student in an Organized Health Care Education/Training Program; Visit Provider Student in an Organized Health Care Education/Training Program
DX: E11.22 Type 2 diabetes mellitus with diabetic chronic kidney disease (principal); E83.52 Hypercalcemia; E11.65 Type 2 diabetes mellitus with hyperglycemia; E78.2 Mixed hyperlipidemia; G62.9 Polyneuropathy, unspecified; N18.3 Chronic kidney disease, stage 3 (moderate)
CPT/HCPCS: 36415; 80053; 80061; 82306; 83036; 83970

== ENCOUNTER → 2019-09-15 09:45 | Outpatient (CLI) | payer MEDICARE, OTHER, SELFPAY ==
[2019-09-15 10:28] LABS: Add Manual Diff / Slide Review NO; Basophils Absolute Auto 100 /uL (0-100); Basophils Percent Auto 1.3 % (0-2); Eosinophils Absolute Auto 100 /uL (0-450); Eosinophils Percent Auto 2.1 % (2-4); Hematocrit 31.1 % (36-46); Hemoglobin 10.6 g/dL (12.0-16.0); Lymphocytes Absolute Auto 2300 /uL (1100-4500); Lymphocytes Percent Auto 34.1 % (25-40); Mean Corpuscular Hemoglobin 31.8 PG (26-34); Mean Corpuscular Volume 93.5 fL (80-100); Monocytes Absolute Auto 500 /uL (0-900); Monocytes Percent Auto 7.8 % (3-14); Neutrophils Absolute Auto 3700 /uL (1500-7000); Neutrophils Percent Auto 54.7 % (50-75); Platelet Count 248 X10^3/uL (150-400); Red Blood Cell Count 3.32 X10^6/uL (4.0-5.2); Red Cell Distribution Width 14.1 % (11.6-14.8); White Blood Cell Count 6.8 X10^3/uL (4.5-11.0)
[2019-09-15 10:36] LABS: Hemoglobin A1C% w Est Avg Glu 8.1 % (4.0-6.0)
[2019-09-15 11:05] LABS: Albumin 4.3 g/dL (3.5-5.0); BUN Creatinine Ratio 35.3 (6-22); Blood Urea Nitrogen 48 mg/dL (7-17); Calcium 10.1 mg/dL (8.4-10.2); Carbon Dioxide 29 mmol/L (22-32); Chloride 100 mmol/L (98-107); Estimated Glomerular Filt Rate 38.2 mL/min (>60); Glucose 196 mg/dL (80-110); HEMOLYSIS < 15 (0-50); Phosphorous 4.1 mg/dL (2.8-4.1); Potassium 4.5 mmol/L (3.4-5.1); Sodium 137 mmol/L (137-145); Uric Acid 7.6 mg/dL (2.5-6.2)
[2019-09-15 11:06] LABS: BUN Creatinine Ratio 35.8 (6-22); Blood Urea Nitrogen 48 mg/dL (7-17); Calcium 10.2 mg/dL (8.4-10.2); Carbon Dioxide 28 mmol/L (22-32); Chloride 99 mmol/L (98-107); Estimated Glomerular Filt Rate 38.9 mL/min (>60); Glucose 194 mg/dL (80-110); HEMOLYSIS < 15 (0-50); Potassium 4.4 mmol/L (3.4-5.1); Sodium 137 mmol/L (137-145)
[2019-09-15 11:08] LABS: Protein (Total) Urine Random 9 mg/dL (0-12)
[2019-09-16 09:44] LABS: Calcium 9.7 mg/dL (8.7-10.3); Parathyroid Hormone, Intact 30 pg/mL (15-65)
== END ==
PROVIDERS: PCP Internal Medicine; Referring Provider Internal Medicine Nephrology; Visit Provider Internal Medicine Nephrology
DX: N18.3 Chronic kidney disease, stage 3 (moderate) (principal)
CPT/HCPCS: 36415; 80048; 80069; 82310; 82570; 83036; 83970; 84156; 84550; 85025

== ENCOUNTER → 2019-12-31 09:39 | Outpatient (CLI) | payer MEDICARE, OTHER, SELFPAY ==
[2019-12-31 10:53] LABS: Hemoglobin A1C% w Est Avg Glu 8.9 % (4.0-6.0)
[2019-12-31 14:44] LABS: BUN Creatinine Ratio 37.1 (6-22); Blood Urea Nitrogen 49 mg/dL (7-17); Estimated Glomerular Filt Rate 39.6 mL/min (>60)
== END ==
PROVIDERS: PCP Internal Medicine; Referring Provider Internal Medicine; Visit Provider Student in an Organized Health Care Education/Training Program
DX: E11.42 Type 2 diabetes mellitus with diabetic polyneuropathy (principal); E11.65 Type 2 diabetes mellitus with hyperglycemia; I10 Essential (primary) hypertension
CPT/HCPCS: 36415; 82565; 83036; 84520

== ENCOUNTER → 2020-04-26 11:10 | Outpatient (CLI) | payer MEDICARE, OTHER, SELFPAY ==
[2020-04-26 13:06] LABS: Hemoglobin A1C% w Est Avg Glu 7.8 % (4.0-6.0)
== END ==
PROVIDERS: PCP Internal Medicine; Referring Provider Student in an Organized Health Care Education/Training Program; Visit Provider Student in an Organized Health Care Education/Training Program
DX: E11.42 Type 2 diabetes mellitus with diabetic polyneuropathy (principal)
CPT/HCPCS: 36415; 83036

== ENCOUNTER → 2020-05-22 14:36 | Outpatient (CLI) | payer MEDICARE, OTHER, SELFPAY ==
[2020-05-22] MEDS: COVID-19 VACC #1, MRNA(MOD) 100 MCG/0.5 ML VIAL IM (14:49)
== END ==
PROVIDERS: PCP Internal Medicine; Visit Provider Internal Medicine
DX: Z23 Encounter for immunization (principal)
CPT/HCPCS: 0011A; 91301

== ENCOUNTER → 2020-06-12 12:29 | Outpatient (CLI) | payer MEDICARE, OTHER, SELFPAY ==
[2020-06-12 13:55] LABS: Albumin 4.6 g/dL (3.5-5.0); BUN Creatinine Ratio 34.5 (6-22); Blood Urea Nitrogen 38 mg/dL (7-17); Carbon Dioxide 25 mmol/L (22-32); Chloride 101 mmol/L (98-107); Estimated Glomerular Filt Rate 48.8 mL/min (>60); Glucose 138 mg/dL (80-110); HEMOLYSIS < 15 (0-50); Potassium 3.8 mmol/L (3.4-5.1); Sodium 139 mmol/L (137-145)
== END ==
PROVIDERS: PCP Internal Medicine; Referring Provider Student in an Organized Health Care Education/Training Program; Visit Provider Student in an Organized Health Care Education/Training Program
DX: E11.65 Type 2 diabetes mellitus with hyperglycemia (principal); Z79.4 Long term (current) use of insulin
CPT/HCPCS: 36415; 80069

== ENCOUNTER → 2020-06-19 11:00 | Outpatient (CLI) | payer MEDICARE, OTHER, SELFPAY ==
[2020-06-19] MEDS: COVID-19 VACC #2, MRNA(MOD) 100 MCG/0.5 ML VIAL IM (11:09)
== END ==
PROVIDERS: PCP Internal Medicine; Visit Provider Internal Medicine
DX: Z23 Encounter for immunization (principal)
CPT/HCPCS: 0012A; 91301

== ENCOUNTER → 2020-09-04 10:49 | Outpatient (CLI) | payer MEDICARE, OTHER, SELFPAY ==
[2020-09-04 12:38] LABS: Hemoglobin A1C% w Est Avg Glu 8.5 % (4.0-6.0)
[2020-09-04 13:03] LABS: Alanine Aminotransferase 21 IU/L (<35); Albumin 4.4 g/dL (3.5-5.0); Albumin Globulin Ratio 1.9 (1.0-2.8); Alkaline Phosphatase 41 U/L (38-126); Aspartate Aminotransferase 22 IU/L (14-36); BUN Creatinine Ratio 32.2 (6-22); Bilirubin Total 0.3 mg/dL (0.2-1.3); Blood Urea Nitrogen 38 mg/dL (7-17); Calcium 11.4 mg/dL (8.4-10.2); Carbon Dioxide 26 mmol/L (22-32); Chloride 102 mmol/L (98-107); Cholesterol 152 mg/dL (140-199); Estimated Glomerular Filt Rate 44.9 mL/min (>60); Globulin 2.3 g/dL (1.7-4.1); Glucose 158 mg/dL (80-110); HDL Cholesterol 32 mg/dL (40-60); HEMOLYSIS < 15 (0-50); LDL Cholesterol Calculated 55 mg/dL (<100); Potassium 4.3 mmol/L (3.4-5.1); Sodium 139 mmol/L (137-145); Total Protein 6.7 g/dL (6.3-8.2); Triglycerides 325 mg/dL (35-150)
[2020-09-04 13:13] LABS: LDL Cholesterol Direct 50 mg/dL (<100)
== END ==
PROVIDERS: PCP Internal Medicine; Referring Provider Student in an Organized Health Care Education/Training Program; Visit Provider Student in an Organized Health Care Education/Training Program
DX: E11.65 Type 2 diabetes mellitus with hyperglycemia (principal); Z79.4 Long term (current) use of insulin; E66.01 Morbid (severe) obesity due to excess calories; E78.2 Mixed hyperlipidemia; I10 Essential (primary) hypertension; Z68.42 Body mass index [BMI] 45.0-49.9, adult
CPT/HCPCS: 36415; 80053; 80061; 83036; 83721

== ENCOUNTER → 2020-12-06 11:53 | Outpatient (CLI) | payer MEDICARE, OTHER, SELFPAY ==
[2020-12-06 12:44] LABS: BUN Creatinine Ratio 22.7 (6-22); Blood Urea Nitrogen 25 mg/dL (7-17); Calcium 10.2 mg/dL (8.4-10.2); Carbon Dioxide 28 mmol/L (22-32); Chloride 104 mmol/L (98-107); Estimated Glomerular Filt Rate 48.7 mL/min (>60); Glucose 119 mg/dL (80-110); HEMOLYSIS < 15 (0-50); Potassium 4.4 mmol/L (3.4-5.1); Sodium 140 mmol/L (137-145)
[2020-12-06 13:02] LABS: Free T4, Direct Thyroxine 0.99 ng/dL (0.78-2.19)
[2020-12-06 13:16] LABS: Thyroid Stimulating Hormone 1.14 uIU/mL (0.47-4.68)
== END ==
PROVIDERS: PCP Internal Medicine; Referring Provider Internal Medicine; Visit Provider Internal Medicine
DX: E11.65 Type 2 diabetes mellitus with hyperglycemia (principal); L65.9 Nonscarring hair loss, unspecified; R63.5 Abnormal weight gain
CPT/HCPCS: 36415; 80048; 83036; 84439; 84443

== ENCOUNTER → 2021-02-27 12:45 | Outpatient (CLI) | payer MEDICARE, OTHER, SELFPAY ==
[2021-02-27 13:55] LABS: Hemoglobin A1C% w Est Avg Glu 7.6 % (4.0-6.0)
[2021-02-27 13:57] LABS: BUN Creatinine Ratio 20.9 (6-22); Blood Urea Nitrogen 28 mg/dL (7-17); Calcium 10.7 mg/dL (8.4-10.2); Carbon Dioxide 27 mmol/L (22-32); Chloride 103 mmol/L (98-107); Estimated Glomerular Filt Rate 38.8 mL/min (>60); Glucose 183 mg/dL (80-110); HEMOLYSIS < 15 (0-50); Potassium 4.4 mmol/L (3.4-5.1); Sodium 140 mmol/L (137-145)
== END ==
PROVIDERS: PCP Internal Medicine; Referring Provider Internal Medicine; Visit Provider Internal Medicine
DX: E11.65 Type 2 diabetes mellitus with hyperglycemia (principal); E78.2 Mixed hyperlipidemia; I10 Essential (primary) hypertension
CPT/HCPCS: 36415; 80048; 83036

== ENCOUNTER → 2021-06-18 15:51 | Outpatient (CLI) | payer MEDICARE, OTHER, SELFPAY ==
[2021-06-18 16:38] LABS: BUN Creatinine Ratio 31.5 (6-22); Blood Urea Nitrogen 41 mg/dL (7-17); Calcium 9.3 mg/dL (8.4-10.2); Carbon Dioxide 26 mmol/L (22-32); Chloride 103 mmol/L (98-107); Estimated Glomerular Filt Rate 43 mL/min (>60); Glucose 280 mg/dL (80-110); HEMOLYSIS < 15 (0-50); Hemoglobin A1C% w Est Avg Glu 10.3 % (4.0-6.0); Potassium 4.4 mmol/L (3.4-5.1); Sodium 139 mmol/L (137-145)
== END ==
PROVIDERS: Student in an Organized Health Care Education/Training Program; PCP Internal Medicine; Referring Provider Internal Medicine; Visit Provider Internal Medicine
DX: E11.65 Type 2 diabetes mellitus with hyperglycemia (principal); I10 Essential (primary) hypertension; N18.31 Chronic kidney disease, stage 3a
CPT/HCPCS: 36415; 80048; 83036

== ENCOUNTER 2021-06-26 17:53 | Emergency (ER) | payer MEDICARE, OTHER, SELFPAY ==
[2021-06-26 18:31] VITALS: BP 160/76; PULSE 94; RESP 18; TEMP 36.3; O2SAT 97; BMI 45.7
[2021-06-26 20:55] LABS: Add Manual Diff / Slide Review NO; Basophils Absolute Auto 100 /uL (0-100); Basophils Percent Auto 1.2 % (0-2); Eosinophils Absolute Auto 200 /uL (0-450); Eosinophils Percent Auto 1.7 % (2-4); Hematocrit 32.9 % (36-46); Hemoglobin 11.2 g/dL (12.0-16.0); Lymphocytes Absolute Auto 3100 /uL (1100-4500); Lymphocytes Percent Auto 27.5 % (25-40); Mean Corpuscular HGB Conc 34.1 % (30-36); Monocytes Absolute Auto 700 /uL (0-900); Monocytes Percent Auto 6.1 % (3-14); Neutrophils Absolute Auto 7200 /uL (1500-7000); Neutrophils Percent Auto 63.5 % (50-75); Platelet Count 304 X10^3/uL (150-400); Red Blood Cell Count 3.61 X10^6/uL (4.0-5.2); White Blood Cell Count 11.3 X10^3/uL (4.5-11.0)
[2021-06-26 21:23] LABS: BUN Creatinine Ratio 26.7 (6-22); Blood Urea Nitrogen 31 mg/dL (7-17); Calcium 10.4 mg/dL (8.4-10.2); Carbon Dioxide 29 mmol/L (22-32); Chloride 103 mmol/L (98-107); Estimated Glomerular Filt Rate 50 mL/min (>60); Glucose 115 mg/dL (80-110); HEMOLYSIS < 15 (0-50); Potassium 4.1 mmol/L (3.4-5.1); Sodium 142 mmol/L (137-145)
[2021-06-26 21:25] LABS: Appearance Urine UA CLOUDY; Bilirubin Urine UA NEGATIVE (NEGATIVE); Color Urine UA BROWN; Glucose Urine UA NEGATIVE (Negative); Ketones Urine UA NEGATIVE (NEGATIVE); Leukocyte Esterase Urine UA 1+ (NEGATIVE); Nitrite Urine UA POSITIVE (Negative); Occult Blood Urine UA 3+ (Negative); Protein Urine UA 2+ (Negative); Urobilinogen Urine UA 0.2 E.U./dL (0.2)
[2021-06-26 21:41] LABS: RBC Urine >100/HPF (0-5/HPF)
[2021-06-26 21:42] LABS: Bacteria Urine Many (>30); Culture Indicated Urine Specimen Cultured; Squamous Epithelial Cell Urine 1-5 /HPF (0-5/HPF); WBC Urine 5-10/HPF (0-5/HPF)
--- NOTE | 2021-06-26 21:53 | ED_ITS ---
HPI - General Adult General Chief complaint: Urogenital-Female Stated complaint: Blood in urine, clot Time Seen by Provider: 06/26/21 18:43 Source: patient Mode of arrival: Ambulatory Limitations: no limitations History of Present Illness HPI narrative: Patient is a 75-year-old female who is here for evaluation of less than 24 hours of blood in her urine and passing clots. She denies any urinary frequency or urgency or pain. No fevers. Does have lower back pain but this is not new for her. Does not have frequent urinary tract infections. Is not on blood thinners. No abdominal pain. Related Data Home Medications Medication Instructions Recorded Confirmed magnesium 200 mg tablet 250 mg PO #0 02/21/16 03/02/21 cholecalciferol (vitamin D3) 25 5,000 u Q DAY #0 08/12/16 03/02/21 mcg (1,000 unit) tablet (Vitamin D3) travoprost 0.004 % eye drops 1 drp OPHTHALMIC (EYE) BEDTIME 11/24/17 03/02/21 Resmed S9 VPAP #1 ea 08/01/18 03/02/21 cinnamon bark 500 mg capsule mg PO cap 01/25/19 03/02/21 metformin 500 mg tablet 500 mg PO BIDCC tab 01/25/19 03/02/21 (Glucophage) Allertec 1 tab PO DAILY 10/09/19 03/02/21 Turmeric Curcumin 1 tab PO DAILY 10/09/19 03/02/21 multivitamin with minerals 1 tab PO DAILY 10/09/19 03/02/21 (Hair,Skin and Nails) omega-3 fatty acids 500 mg capsule 500 mg PO DAILY 10/09/19 03/02/21 insulin glargine 100 unit/mL (3 15 unit SUBCUT QPM 01/10/20 03/02/21 mL) subcutaneous pen (Lantus Solostar U-100 Insulin) Biotin 5,000 mcg PO DAILY 04/29/20 03/02/21 dulaglutide 0.75 mg/0.5 mL 0.75 mg SUBCUT QWEEK ml 09/09/20 03/02/21 subcutaneous pen injector (Trulicity) Previous Rx's Medication Instructions Recorded ASPIRIN (#ASPIRIN) 325 mg PO Q DAY #30 02/05/11 Glucose: Test Strips str Q DAY #100 07/08/16 metoprolol tartrate 50 mg tablet 50 mg PO BID #180 tab 07/25/20 (Lopressor) omeprazole magnesium 20 mg 20 mg PO Q DAY #90 tab 07/25/20 tablet,delayed release (Prilosec OTC) furosemide 40 mg tablet 40 mg PO QAM #90 tab 09/22/20 glipizide 10 mg tablet, extended 10 mg PO DAILY #30 tab 01/19/21 release 24 hr atorvastatin 40 mg tablet 40 mg PO HS #90 tab 04/20/21 gemfibrozil 600 mg tablet 600 mg PO BIDAC #180 tab 04/20/21 losartan 50 mg tablet See Rx Instructions .ROUTE 04/20/21 .COMPLEX #180 tablet nitrofurantoin 100 mg PO Q12H 5 Days #10 cap 06/26/21 monohydrate/macrocrystals 100 mg capsule (Macrobid) Allergies Allergy/AdvReac Type Severity Reaction Status Date / Time lisinopril [LISINOPRIL] AdvReac Intermediate COUGH Verified 03/02/21 10:07 Review of Systems Constitutional Constitutional: Denies fever(s) Gastrointestinal Gastrointestinal: Denies abdominal pain Genitourinary Genitourinary: Reports system reviewed and no additional complaints, except as documented and Reports as per HPI Integumentary/Breasts Skin/Breast: Reports system reviewed and no additional complaints, except as documented Neurologic Neurologic: Reports system reviewed and no additional complaints, except as documented Hematologic/Lymphatic On Anticoagulants: No Patient History Medical History Ankle pain (~1953) Asthma (~1958) Behaviorally induced insufficient sleep syndrome Carpal tunnel syndrome (~1997) Cataracts, bilateral (~1999) Chicken pox (~1953) Chlamydia (~1976) Chronic renal failure, stage 3a Diabetes type 2, controlled Endometriosis Essential hypertension (02/04/11) Excessive daytime sleepiness Fibroids Fibromyalgia Foot pain (~1999) Glaucoma (02/04/11) Hearing loss (~1955) History of recurrent ear infection (~1955) Insomnia Measles (~1953) Menstrual cycle disorder (~1961) Mixed hyperlipidemia (02/04/11) Morbid obesity with BMI of 40.0-44.9, adult (02/04/11) Morbid obesity with BMI of 45.0-49.9, adult Obstructive sleep apnea syndrome (02/04/11) Peripheral neuropathy (~2015) Rosacea (~1989) Rubella (~195) Shoulder pain (~2016) Type 2 diabetes mellitus without complication, with long-term current use of insulin (01/10/17) Surgical History Anesthesia History of tonsillectomy (~1952) Status post hysterectomy (~1986) Surgical procedure planned Family History Brother Age: 61 Sleep apnea Child Age: 52 Osteopenia Grandmother Cancer Mother Hypertension Sister Age: 64 Sleep apnea Migraines Family/Other Diabetes mellitus Father No problems noted. Social History Smoking Status: Never smoker Smoking Status: Never smoker Substance Use Type: does not use Exam Initial Vital Signs Initial Vital Signs: Vital Signs Temperature 97.4 F L 06/26/21 18:31 Pulse Rate 94 H 06/26/21 18:31 Respiratory Rate 18 06/26/21 18:31 Blood Pressure 160/76 H 06/26/21 18:31 Pulse Oximetry 97 06/26/21 18:31 HENMT Head: normal to inspection and normocephalic Resp Effort & Inspection: normal respiratory effort Cardio Rate: regular rate GI Inspection: normal to inspection Back/Spine/Pelvis Back: No CVA tenderness Extrem General: normal to inspection and capillary refill normal Course Orders Ordered: ED Orders 06/26/21 18:10 Urinalysis and Microscopic Stat Urine Culture Stat 06/26/21 20:46 Basic Metabolic Panel Stat Complete Blood Count AUTO DIFF Stat Discontinued Medications Nitrofurantoin Macrocrystals (Nitrofurantoin Er 100 Mg Capsule) 100 mg PO NOW ONE Stop: 06/26/21 21:54 Last Admin: 06/26/21 22:05 Dose: 100 mg Documented by: LOREN Vital Signs Vital signs: Vital Signs - 8 hr 06/26/21 22:08 Pulse Rate 89 Respiratory Rate 18 Blood Pressure 161/74 H Pulse Oximetry 96 Medical Decision Making Lab Data Result diagrams: 06/26/21 20:46 06/26/21 20:46 Labs: Lab Results 06/26/21 06/26/21 06/26/21 Range/Units 18:10 20:46 20:46 WBC 11.3 H (4.5-11.0) X10^3/uL RBC 3.61 L (4.0-5.2) X10^6/uL Hgb 11.2 L (12.0-16.0) g/dL Hct 32.9 L (36-46) % MCV 91.0 (80-100) fL MCH 31.0 (26-34) PG MCHC 34.1 (30-36) % RDW 14.0 (11.6-14.8) % Plt Count 304 (150-400) X10^3/uL Neut % (Auto) 63.5 (50-75) % Lymph % (Auto) 27.5 (25-40) % [place] % (Auto) 6.1 (3-14) % Eos % (Auto) 1.7 L (2-4) % Baso % (Auto) 1.2 (0-2) % Neut # (Auto) 7200 H (5737-3375) /uL Lymph # (Auto) 3100 (5610-0605) /uL [place] # (Auto) 700 (0-900) /uL Eos # (Auto) 200 (0-450) /uL Baso # (Auto) 100 (0-100) /uL Sodium 142 (137-145) mmol/L Potassium 4.1 (3.4-5.1) mmol/L Chloride 103 (98-107) mmol/L Carbon Dioxide 29 (22-32) mmol/L BUN 31 H (7-17) mg/dL Creatinine 1.16 H (0.52-1.04) mg/dL Estimated GFR 50 L (>60) mL/min BUN/Creatinine Ratio 26.7 H (6-22) Glucose 115 H D (80-110) mg/dL Calcium 10.4 H (8.4-10.2) mg/dL Urine Color Brown Urine Appearance Cloudy Urine pH 5.0 (4.5-8.0) Ur Specific [place] 1.020 (1.000-1.035) Urine Protein 2+ H (Negative) Urine Glucose (UA) Negative (Negative) g/dL Urine Ketones Negative (NEGATIVE) Urine Occult Blood 3+ H (Negative) Urine Nitrate Positive H (Negative) Urine Bilirubin Negative (NEGATIVE) Urine Urobilinogen 0.2 (0.2) E.U./dL Ur Leukocyte Esterase 1+ H (NEGATIVE) Urine RBC >100/hpf H (0-5/HPF) Urine WBC 5-10/hpf H (0-5/HPF) Ur Squamous Epith Cells 1-5 /hpf (0-5/HPF) Urine Bacteria Many (>30) H (None) Ur Culture Indicated? Specimen cultured MDM Narrative Medical decision making narrative: Patient does have hematuria with a nitrite positive urine. She does not have any specific urinary tract infection like symptoms. Is afebrile. Is nontoxic appearing. Given the hematuria and the positive nitrates which is specific for infection I do feel that starting her on antibiotics would be warranted. Hematuria is most likely from an infection. Postvoid bladder scan unremarkable. She is not retaining urine. Urine culture was obtained as well and is pending at the time of discharge in the patient was informed of this and that we would contact her for need to change any antibiotics. Low concern for pyelonephritis based on her exam. She has a follow-up with her primary doctor the beginning of next week. She was given 1st dose of antibiotics here in the ER and a prescription for the remainder was sent to the pharmacy of her choice. She was informed to keep her appointment with her primary doctor that is already scheduled. She was given return precautions. She expressed understanding and agreement. Discharge Plan Departure Patient Disposition: Home Clinical Impression: Hematuria, Urinary tract infection Instructions: DI for Urinary Tract Infection (UTI), DI for Hematuria Activity Restrictions/Additional Instructions: I do recommend that you increase your fluid intake like we discussed. There was a urine culture pending at the time of your discharge in we will contact you if we to switching any antibiotics. Keep your appointment with your primary doctor on Tuesday. Return to the emergency department for any new or worsening symptoms. Prescriptions: New nitrofurantoin monohyd/m-cryst [Macrobid] 100 mg capsule 100 mg PO Q12H 5 Days Qty: 10 0RF Rx Instructions: must administer with a meal/food No Action ASPIRIN (#ASPIRIN) 325 mg PO Q DAY Qty: 30 0RF magnesium 200 MG tablet 250 mg PO Qty: 0 0RF Glucose: Test Strips Q DAY Qty: 100 PRNRF cholecalciferol (vitamin D3) [Vitamin D3] 1,000 UNIT tablet 5,000 u Q DAY Qty: 0 0RF metoprolol tartrate [Lopressor] 50 mg tablet 50 mg PO BID Qty: 180 3RF Prilosec OTC 20 mg tablet,delayed release (DR/EC) 20 mg PO Q DAY Qty: 90 3RF furosemide 40 mg tablet 40 mg PO QAM Qty: 90 3RF glipizide 10 mg tablet extended release 24hr 10 mg PO DAILY Qty: 30 5RF atorvastatin 40 mg tablet 40 mg PO HS Qty: 90 3RF gemfibrozil 600 mg tablet 600 mg PO BIDAC Qty: 180 3RF losartan 50 mg tablet See Rx Instructions .ROUTE .COMPLEX Qty: 180 3RF Dose Instruction: TAKE 1 TABLET BY MOUTH TWICE DAILY Rx Instructions: TAKE 1 TABLET BY MOUTH TWICE DAILY cinnamon bark 500 mg capsule PO 0RF Rx Instructions: Takes 1,000mg 3x a day metformin [Glucophage] 500 mg tablet 500 mg PO BIDCC 0RF Lantus Solostar U-100 Insulin 100 unit/mL (3 mL) insulin pen 15 unit SUBCUT QPM 0RF Trulicity 0.75 mg/0.5 mL pen injector 0.75 mg SUBCUT QWEEK 0RF Allertec 1 tab PO DAILY 0RF Rx Instructions: Allertec or Cetrizine or Loratidine. Either of the 3, just depends on whats bought. multivitamin with minerals [Hair,Skin and Nails] Tablet 1 tab PO DAILY 0RF omega-3 fatty acids 500 mg capsule 500 mg PO DAILY 0RF Turmeric Curcumin 1 tab PO DAILY 0RF Rx Instructions: 650MG Biotin 5,000 mcg PO DAILY 0RF travoprost [Travatan Z] 0.004 % drops 1 drp ophthalmic (eye) BEDTIME 0RF Label Comments: INSTILL 1 DROP IN BOTH EYES AT BEDTIME (DME) Resmed S9 VPAP Qty: 1 0RF Dose Instruction: As directed Label Comments: Pressure: IPAP 20 EPAP 10 DME: [facility] Rx Instructions: As directed Referrals: Ivan Recinos MD [Primary Care Provider] -
[2021-06-26] MEDS: NITROFURANTOIN ER 100 MG CAPSULE PO (22:05)
[2021-06-26 22:08] VITALS: BP 161/74; PULSE 89; RESP 18; O2SAT 96
== END 2021-06-26 22:25 | disposition home or self-care (01) ==
PROVIDERS: Emergency Provider Emergency Medicine; PCP Internal Medicine
DX: N39.0 Urinary tract infection, site not specified (principal); R31.9 Hematuria, unspecified
CPT/HCPCS: 36415; 51798; 80048; 81001; 85025; 87077; 87086; 87186; 99283

== ENCOUNTER 2021-07-09 21:00 | Observation (INO) | payer MEDICARE, OTHER, SELFPAY ==
[2021-07-09 21:05] VITALS: BP 163/73; PULSE 108; RESP 18; TEMP 37.7; O2SAT 96; BMI 45.3
[2021-07-09 21:47] LABS: COVID19 -Nasal RAPID Negative (Negative)
[2021-07-09 22:05] LABS: RBC Urine 1-5/HPF (0-5/HPF)
[2021-07-09 22:06] LABS: WBC Urine 10-30/HPF (0-5/HPF)
[2021-07-09 22:07] LABS: Bacteria Urine Many (>30); Squamous Epithelial Cell Urine 0-1 /HPF (0-5/HPF)
[2021-07-09 22:49] VITALS: PULSE 100; O2SAT 95
[2021-07-09 22:50] VITALS: BP 128/62; PULSE 100; RESP 18; O2SAT 95
[2021-07-09 23:00] VITALS: PULSE 100; O2SAT 95
[2021-07-09 23:03] LABS: Add Manual Diff / Slide Review NO; Basophils Absolute Auto 100 /uL (0-100); Basophils Percent Auto 0.4 % (0-2); Eosinophils Absolute Auto 100 /uL (0-450); Eosinophils Percent Auto 0.4 % (2-4); Hematocrit 28.7 % (36-46); Hemoglobin 9.8 g/dL (12.0-16.0); Lymphocytes Absolute Auto 900 /uL (1100-4500); Mean Corpuscular HGB Conc 34.3 % (30-36); Mean Corpuscular Hemoglobin 31.1 PG (26-34); Mean Corpuscular Volume 90.5 fL (80-100); Monocytes Absolute Auto 1500 /uL (0-900); Monocytes Percent Auto 9.8 % (3-14); Neutrophils Absolute Auto 12700 /uL (1500-7000); Neutrophils Percent Auto 83.4 % (50-75); Platelet Count 224 X10^3/uL (150-400); Red Blood Cell Count 3.17 X10^6/uL (4.0-5.2); Red Cell Distribution Width 15.2 % (11.6-14.8); White Blood Cell Count 15.2 X10^3/uL (4.5-11.0)
[2021-07-09 23:06] LABS: Lactate (Lactic Acid) 1.4 mmol/L (0.7-2.1)
[2021-07-09 23:07] LABS: Alanine Aminotransferase 25 IU/L (<35); Albumin 4.1 g/dL (3.5-5.0); Albumin Globulin Ratio 1.5 (1.0-2.8); Alkaline Phosphatase 41 U/L (38-126); Aspartate Aminotransferase 45 IU/L (14-36); BUN Creatinine Ratio 27.2 (6-22); Bilirubin Total 0.6 mg/dL (0.2-1.3); Blood Urea Nitrogen 34 mg/dL (7-17); Calcium 9.5 mg/dL (8.4-10.2); Carbon Dioxide 24 mmol/L (22-32); Chloride 99 mmol/L (98-107); Estimated Glomerular Filt Rate 46 mL/min (>60); Globulin 2.8 g/dL (1.7-4.1); Glucose 357 mg/dL (80-110); HEMOLYSIS 22 (0-50); Potassium 3.9 mmol/L (3.4-5.1); Sodium 135 mmol/L (137-145); Total Protein 6.9 g/dL (6.3-8.2)
[2021-07-09 23:30] VITALS: PULSE 99; O2SAT 95
[2021-07-10] VITALS (39 sets, daily range): BP systolic 90–150; BP diastolic 49–65; PULSE 85–109; RESP 16–29; TEMP 36.7–37.3; O2SAT 93–98; BMI 45.1
--- NOTE | 2021-07-10 00:27 | PC.NURSE ---
Pt reports feeling nauseated, weak, and having increased urination and urgency over the past few days. Pt had a fall earlier this evening and presents with an abrasion on her right forehead. Denies and light headedness or dizziness. Reports pain in her legs and lower back that she says is chronic for her. Pt updated and call light within reach.
--- NOTE | 2021-07-10 00:34 | ED.GENADULT ---
HPI - General Adult General Chief complaint: Fever Stated complaint: fall, weakness Time Seen by Provider: 07/10/21 00:33 Source: patient Mode of arrival: Ambulatory History of Present Illness HPI narrative: 75-year-old woman with a history of diabetes, hypertension, hyperlipidemia, reflux who was seen on June 26 with hematuria and started on nitrofurantoin. Subsequent urine culture has grown out E coli. That is sensitive to nitrofurantoin. The hematuria stopped within 12 hours of starting the nitrofurantoin and she felt that her symptoms had entirely resolved by the end of the completed course of the nitrofurantoin. Antibiotics were completed on the and she felt well until the when she started having mild generalized abdominal discomfort, fevers shaking chills vomiting for the last 48 hours. She describes no blood or coffee-ground emesis in the vomitus and describes no black or bloody stools. No recent diarrhea. She states that she has not been checking her blood sugars because she is out of strips and needs referrals and approval prior to having them refilled. Today, she was leaning forward to full of her socks lost her balance fell forward hitting her forehead on the carpeted floor. She was too weak to push herself up and it took about an hour to crawl to the living room to get to the phone to call her sister. They called 911 help with getting her off the floor. Medics suggested that she come in for further evaluation. She denies any chest pain, palpitations, headaches. Related Data Home Medications Medication Instructions Recorded Confirmed magnesium 200 mg tablet 250 mg PO #0 02/21/16 07/03/21 cholecalciferol (vitamin D3) 25 5,000 u Q DAY #0 08/12/16 07/03/21 mcg (1,000 unit) tablet (Vitamin D3) travoprost 0.004 % eye drops 1 drp OPHTHALMIC (EYE) BEDTIME 11/24/17 07/03/21 Resmed S9 VPAP #1 ea 08/01/18 07/03/21 cinnamon bark 500 mg capsule mg PO cap 01/25/19 07/03/21 metformin 500 mg tablet 500 mg PO BIDCC tab 01/25/19 07/03/21 (Glucophage) Allertec 1 tab PO DAILY 10/09/19 07/03/21 Turmeric Curcumin 1 tab PO DAILY 10/09/19 07/03/21 multivitamin with minerals 1 tab PO DAILY 10/09/19 07/03/21 (Hair,Skin and Nails) omega-3 fatty acids 500 mg capsule 500 mg PO DAILY 10/09/19 07/03/21 insulin glargine 100 unit/mL (3 15 unit SUBCUT QPM 01/10/20 07/03/21 mL) subcutaneous pen (Lantus Solostar U-100 Insulin) Biotin 5,000 mcg PO DAILY 04/29/20 07/03/21 dulaglutide 0.75 mg/0.5 mL 0.75 mg SUBCUT QWEEK ml 09/09/20 07/03/21 subcutaneous pen injector (Trulicity) Previous Rx's Medication Instructions Recorded ASPIRIN (#ASPIRIN) 325 mg PO Q DAY #30 02/05/11 Glucose: Test Strips str Q DAY #100 07/08/16 metoprolol tartrate 50 mg tablet 50 mg PO BID #180 tab 07/25/20 (Lopressor) omeprazole magnesium 20 mg 20 mg PO Q DAY #90 tab 07/25/20 tablet,delayed release (Prilosec OTC) furosemide 40 mg tablet 40 mg PO QAM #90 tab 09/22/20 glipizide 10 mg tablet, extended 10 mg PO DAILY #30 tab 01/19/21 release 24 hr atorvastatin 40 mg tablet 40 mg PO HS #90 tab 04/20/21 gemfibrozil 600 mg tablet 600 mg PO BIDAC #180 tab 04/20/21 losartan 50 mg tablet See Rx Instructions .ROUTE 04/20/21 .COMPLEX #180 tablet Allergies Allergy/AdvReac Type Severity Reaction Status Date / Time lisinopril [LISINOPRIL] AdvReac Intermediate COUGH Verified 07/09/21 21:14 Review of Systems Review of Systems Narrative: Remainder of complete review of systems is otherwise unremarkable except for that included in the HPI. Patient History Medical History Ankle pain (~1953) Asthma (~1958) Behaviorally induced insufficient sleep syndrome Carpal tunnel syndrome (~1997) Cataracts, bilateral (~1999) Chicken pox (~1953) Chlamydia (~1976) Chronic renal failure, stage 3a Diabetes type 2, controlled Endometriosis Essential hypertension (02/04/11) Excessive daytime sleepiness Fibroids Fibromyalgia Foot pain (~1999) Glaucoma (02/04/11) Hearing loss (~1955) History of recurrent ear infection (~1955) Insomnia Measles (~1953) Menstrual cycle disorder (~1961) Mixed hyperlipidemia (02/04/11) Morbid obesity with BMI of 40.0-44.9, adult (02/04/11) Morbid obesity with BMI of 45.0-49.9, adult Obstructive sleep apnea syndrome (02/04/11) Peripheral neuropathy (~2015) Rosacea (~1989) Rubella (~1955) Shoulder pain (~2016) Type 2 diabetes mellitus without complication, with long-term current use of insulin (01/10/17) Surgical History Anesthesia History of tonsillectomy (~1952) Status post hysterectomy (~1986) Surgical procedure planned Family History Brother Age: 61 Sleep apnea Child Age: 52 Osteopenia Grandmother Cancer Mother Hypertension Sister Age: 64 Sleep apnea Migraines Family/Other Diabetes mellitus Father No problems noted. Social History Smoking Status: Never smoker Smoking Status: Never smoker Substance Use Type: does not use Exam Initial Vital Signs Initial Vital Signs: Vital Signs Temperature 99.8 F H 07/09/21 21:05 Pulse Rate 108 H 07/09/21 21:05 Respiratory Rate 18 07/09/21 21:05 Blood Pressure 163/73 H 07/09/21 21:05 Pulse Oximetry 96 07/09/21 21:05 General: in no acute distress. Able to give a complete and coherent history. Well-nourished well-developed HEENT: Moist mucous membranes, right eye with subconjunctival injection, bilaterally reactive pupils, she has minor abrasion to the right side of the forehead. Neck: No JVD, supple, no midline cervical tenderness Respiratory: Lungs are clear to auscultation, no wheezing no rales no rhonchi. Full and symmetrical air movement Cardiac: Regular rate and rhythm no murmurs no bruits Abdomen: Soft, mild diffuse mid abdominal tenderness without rebound or guarding. good bowel tones, no flank pain Skin: Warm and dry, no rashes Neurologic: Grossly neurologically intact with no obvious asymmetries or abnormalities Extremities: No trauma, well perfused, she does have chronic venous stasis changes but notes that her lower extremity edema actually seems less than her baseline. Psych: Cooperative, appropriate insight and affect Course Orders Ordered: ED Orders 07/09/21 21:11 COVID19 -Nasal RAPID/Pre-Proc Stat 07/09/21 21:20 CBC Auto Diff [Complete Blood Count AUTO DIFF] Stat Comprehensive Metabolic Panel Stat Lactate (Lactic Acid) Stat 07/09/21 21:24 EKG-12 Lead Stat 07/09/21 21:30 Urine Culture Stat Urine Microscopic Stat 07/09/21 23:10 Blood Culture Stat Sodium Chloride (Normal Saline 0.9%) 1,000 mls @ 125 mls/hr IV CONT DARCY Last Admin: 07/10/21 02:32 Dose: 125 mls/hr Documented by: QUINTON Discontinued Medications Acetaminophen (Acetaminophen 325 Mg Tablet) 975 mg PO NOW ONE Stop: 07/10/21 02:11 Last Admin: 07/10/21 02:32 Dose: 975 mg Documented by: QUINTON Atorvastatin Calcium (Atorvastatin 20 Mg Tablet) 40 mg PO NOW ONE Stop: 07/10/21 01:34 Last Admin: 07/10/21 02:04 Dose: 40 mg Documented by: QUINTON Ceftriaxone Sodium 2,000 mg/ (Sodium Chloride) 100 mls @ 200 mls/hr IV NOW ONE Stop: 07/10/21 01:04 Last Admin: 07/10/21 01:22 Dose: 200 mls/hr Documented by: QUINTON Insulin Glargine (Insulin Glargine 100 Unit/Ml 3ml Pen) 20 unit SUBCUT NOW ONE Stop: 07/10/21 01:34 Last Admin: 07/10/21 02:04 Dose: 20 unit Documented by: QUINTON Cosigned by: [email or web address] Metoprolol Tartrate (Metoprolol Ir 25 Mg Tablet) 50 mg PO NOW ONE Stop: 07/10/21 01:34 Last Admin: 07/10/21 02:04 Dose: 50 mg Documented by: QUINTON Vital Signs Vital signs: Vital Signs - 8 hr 07/09/21 21:05 07/09/21 22:49 07/09/21 22:50 Temperature 99.8 F H Pulse Rate 108 H 100 H 100 H Respiratory Rate 18 18 Blood Pressure 163/73 H 128/62 Pulse Oximetry 96 95 95 07/09/21 23:00 07/09/21 23:30 07/10/21 00:00 Temperature Pulse Rate 100 H 99 H 95 H Respiratory Rate Blood Pressure Pulse Oximetry 95 95 94 07/10/21 00:30 07/10/21 01:00 07/10/21 01:17 Temperature Pulse Rate 94 H 95 H 103 H Respiratory Rate Blood Pressure 150/65 H Pulse Oximetry 94 95 97 07/10/21 01:30 07/10/21 02:00 07/10/21 02:01 Temperature Pulse Rate 96 H 95 H 95 H Respiratory Rate Blood Pressure 126/61 Pulse Oximetry 95 96 96 Medical Decision Making Medical Records Medical records narrative: urine culture from 06/26/21 Urine Culture Final 06/28/21-0756 Organism 1 Escherichia coli [place] Count >100,000 CFU/ml 1. Escherichia coli M.I.C. RX --------- --- * Amoxicillin/Clavulanate 16 I * Ampicillin >=32 R * Ampicillin/Sulbactam >=32 R * Cefazolin <=4 S * Cefepime <=1 S * Ceftriaxone <=1 S * Ciprofloxacin 0.5 I * Ertapenem <=0.5 S * Gentamicin <=1 S * Imipenem <=0.25 S * Levofloxacin 1 I * Nitrofurantoin <=16 S * Tobramycin <=1 S * Trimethoprim/Sulfamethoxazole >=320 R * Piperacillin/Tazobactam <=4 S Lab Data Result diagrams: 07/09/21 21:20 07/09/21 21:20 Labs: Lab Results 07/09/21 07/09/21 07/09/21 Range/Units 21:11 21:20 21:20 WBC 15.2 H (4.5-11.0) X10^3/uL RBC 3.17 L (4.0-5.2) X10^6/uL Hgb 9.8 L (12.0-16.0) g/dL Hct 28.7 L (36-46) % MCV 90.5 (80-100) fL MCH 31.1 (26-34) PG MCHC 34.3 (30-36) % RDW 15.2 H (11.6-14.8) % Plt Count 224 (150-400) X10^3/uL Neut % (Auto) 83.4 H (50-75) % Lymph % (Auto) 6.0 L (25-40) % [place] % (Auto) 9.8 (3-14) % Eos % (Auto) 0.4 L (2-4) % Baso % (Auto) 0.4 (0-2) % Neut # (Auto) 89017 H (1366-7489) /uL Lymph # (Auto) 900 L (5339-4786) /uL [place] # (Auto) 1500 H (0-900) /uL Eos # (Auto) 100 (0-450) /uL Baso # (Auto) 100 (0-100) /uL Sodium 135 L (137-145) mmol/L Potassium 3.9 (3.4-5.1) mmol/L Chloride 99 (98-107) mmol/L Carbon Dioxide 24 (22-32) mmol/L BUN 34 H (7-17) mg/dL Creatinine 1.25 H (0.52-1.04) mg/dL Estimated GFR 46 L (>60) mL/min BUN/Creatinine Ratio 27.2 H (6-22) Glucose 357 H (80-110) mg/dL Lactate (0.7-2.1) mmol/L Calcium 9.5 (8.4-10.2) mg/dL Total Bilirubin 0.6 (0.2-1.3) mg/dL AST 45 H (14-36) IU/L ALT 25 (<35) IU/L Alkaline Phosphatase 41 (38-126) U/L Total Protein 6.9 (6.3-8.2) g/dL Albumin 4.1 (3.5-5.0) g/dL Globulin 2.8 (1.7-4.1) g/dL Albumin/Globulin Ratio 1.5 (1.0-2.8) Urine RBC (0-5/HPF) Urine WBC (0-5/HPF) Ur Squamous Epith Cells (0-5/HPF) Urine Bacteria (None) Ur Culture Indicated? SARS-CoV-2 (PCR) Negative (Negative) 07/09/21 07/09/21 Range/Units 21:20 21:30 WBC (4.5-11.0) X10^3/uL RBC (4.0-5.2) X10^6/uL Hgb (12.0-16.0) g/dL Hct (36-46) % MCV (80-100) fL MCH (26-34) PG MCHC (30-36) % RDW (11.6-14.8) % Plt Count (150-400) X10^3/uL Neut % (Auto) (50-75) % Lymph % (Auto) (25-40) % [place] % (Auto) (3-14) % Eos % (Auto) (2-4) % Baso % (Auto) (0-2) % Neut # (Auto) (0677-5514) /uL Lymph # (Auto) (0797-7515) /uL [place] # (Auto) (0-900) /uL Eos # (Auto) (0-450) /uL Baso # (Auto) (0-100) /uL Sodium (137-145) mmol/L Potassium (3.4-5.1) mmol/L Chloride (98-107) mmol/L Carbon Dioxide (22-32) mmol/L BUN (7-17) mg/dL Creatinine (0.52-1.04) mg/dL Estimated GFR (>60) mL/min BUN/Creatinine Ratio (6-22) Glucose (80-110) mg/dL Lactate 1.4 (0.7-2.1) mmol/L Calcium (8.4-10.2) mg/dL Total Bilirubin (0.2-1.3) mg/dL AST (14-36) IU/L ALT (<35) IU/L Alkaline Phosphatase (38-126) U/L Total Protein (6.3-8.2) g/dL Albumin (3.5-5.0) g/dL Globulin (1.7-4.1) g/dL Albumin/Globulin Ratio (1.0-2.8) Urine RBC 1-5/hpf D (0-5/HPF) Urine WBC 10-30/hpf H (0-5/HPF) Ur Squamous Epith Cells 0-1 /hpf (0-5/HPF) Urine Bacteria Many (>30) H (None) Ur Culture Indicated? Culture not indicate SARS-CoV-2 (PCR) (Negative) Point of Care Testing Glucose POC 287 Urine Dip Bedside Urine Glucose Negative Bedside Urine Bilirubin - Negative Bedside Urine Ketone - Negative Urine Specific [place] 1.020 Bedside Urine Occult Blood +++ Bedside Urine pH 5.5 Bedside Urine Protein + 30 Bedside Urine Urobilinogen +/- 1mg Bedside Urine Nitrite + Positive Bedside Urine Leukocytes + 70 Esterase Point of care testing: Point of Care Testing Glucose POC 287 Urine Dip Bedside Urine Glucose Negative Bedside Urine Bilirubin - Negative Bedside Urine Ketone - Negative Urine Specific [place] 1.020 Bedside Urine Occult Blood +++ Bedside Urine pH 5.5 Bedside Urine Protein + 30 Bedside Urine Urobilinogen +/- 1mg Bedside Urine Nitrite + Positive Bedside Urine Leukocytes + 70 Esterase ECG Data Interpretation: Sinus tachycardia at 1:05 a.m. Normal intervals, normal axis No acute ischemic changes MDM Narrative Medical decision making narrative: 75-year-old woman with recent E coli bladder infection seemingly treated with nitrofurantoin however over the last number of days she has had vomiting, left quadrant pain today's noticing dysuria cloudy urine and a slight smell to her urine. She has had shaking fevers and chills over the last 48 hours and increasing weakness today to the point that she fell forward landing on her head on a carpeted floor with no trauma but then was unable to get up. On arrival in the emergency room she is slightly hypertensive but alert and appropriate. She has some mild diffuse abdominal pain, urine looks like it is again infected. White blood cell count is elevated at 15.2 and she is slightly anemic for unexplained reasons with a drop in Hemoglobin from 11.2-9.8 over the last 13 days with no noted acute blood loss. Lactic acid is not elevated. She is lightly dehydrated with her creatinine at her baseline. Given her weakness and the recurrent bladder infection with symptoms of nausea vomiting shaking chills and fevers over the last 48 hours will admit her for IV antibiotics at this time for a urinary tract infection with presumed developing pyelonephritis. She is given IV ceftriaxone. Urine culture from June 26 indicates that the E coli is sensitive to this urine is again cultured today. Findings are reviewed with patient she is amenable to hospital admission. Her primary care physician is Dr. Recinos will contact him for her inpatient care. Discharge Plan Departure Patient Disposition: Admitted As Inpatient Clinical Impression: Acute UTI, Weakness, Fever with chills, Anemia Admit Date/Time: 07/10/21 02:10 Admit Provider: Ivan Recinos
[2021-07-10] MEDS: cefTRIAXone 2,000 MG in SODIUM CHLORIDE 0.9% 100 ML 200 MG IV (01:22)
[2021-07-10] MEDS: METOPROLOL IR 25 MG TABLET 50 MG PO (02:04)
[2021-07-10] MEDS: ATORVASTATIN 20 MG TABLET 40 MG PO ×2 (02:04→20:49)
[2021-07-10] MEDS: INSULIN GLARGINE 100 UNIT/ML 3ML PEN 20 UNIT SUBCUT (02:04)
[2021-07-10] MEDS: SODIUM CHLORIDE 0.9% 1,000 ML 125 ML IV (02:32)
[2021-07-10] MEDS: ACETAMINOPHEN 325 MG TABLET 975 MG PO (02:32)
[2021-07-10] MEDS: SODIUM CHLORIDE 0.9% 500 ML 1000 ML IV (04:15)
[2021-07-10 06:36] LABS: Hematocrit 27.4 % (36-46); Hemoglobin 9.3 g/dL (12.0-16.0); Mean Corpuscular HGB Conc 33.9 % (30-36); Mean Corpuscular Hemoglobin 30.5 PG (26-34); Platelet Count 214 X10^3/uL (150-400); Red Blood Cell Count 3.04 X10^6/uL (4.0-5.2); Red Cell Distribution Width 14.7 % (11.6-14.8); White Blood Cell Count 13.5 X10^3/uL (4.5-11.0)
[2021-07-10 06:43] LABS: BUN Creatinine Ratio 26.5 (6-22); Blood Urea Nitrogen 31 mg/dL (7-17); Calcium 9.5 mg/dL (8.4-10.2); Carbon Dioxide 27 mmol/L (22-32); Chloride 101 mmol/L (98-107); Estimated Glomerular Filt Rate 49 mL/min (>60); Glucose 277 mg/dL (80-110); HEMOLYSIS < 15 (0-50); Potassium 3.8 mmol/L (3.4-5.1); Sodium 136 mmol/L (137-145)
--- NOTE | 2021-07-10 07:22 | P.HP_ITS ---
History of Present Illness History of Present Illness Date Patient Seen: 07/10/21 Time Patient Seen: 07:22 Chief complaint: fall, weakness Narrative: 75-year-old female well known to me admitted via emergency department because of UTI with weakness etcetera Patient actually presented to the emergency department after falling at home and being unable to get up on her own. She describes being increasingly weak over the last couple of days with fevers (to 101+), shaking chills, as well as some vomiting. She had some abdominal pain that was fairly diffuse as well over the last 48 hours. She has had no blood in her emesis or in her stool. No change in her bowel movements specifically no diarrhea. Patient actually had a fall while trying to change her socks sort of tipping over forward but found that she was unable to get up off the floor on her own. EMS was summoned and they recommended she be seen in the emergency department In the ER she was found to have a leukocytosis and probable return of her UTI based on urinalysis. Her vital signs were actually stable maybe minimally tachycardic. Lactate level was normal. She has had a drop in her hemoglobin and hematocrit verses testing done during prior ER visit. She was seen in the ER untreated on the sixth for UTI. She eventually grew E coli from the urine culture and was treated with nitrofurantoin which should been appropriate based on sensitivities from that culture. She was given some IV fluids some IV antibiotics repeat urine was cultured and she is admitted for further evaluation. Of note she is also quite hyperglycemic and has not been checking her blood sugars at home as she has run out of test strips and equipment to check her blood sugars at home. Patient History Medical History Ankle pain (~1953) Asthma (~1958) Behaviorally induced insufficient sleep syndrome Carpal tunnel syndrome (~1997) Cataracts, bilateral (~1999) Chicken pox (~1953) Chlamydia (~1976) Chronic renal failure, stage 3a Diabetes type 2, controlled Endometriosis Essential hypertension (02/04/11) Excessive daytime sleepiness Fibroids Fibromyalgia Foot pain (~1999) Glaucoma (02/04/11) Hearing loss (~1955) History of recurrent ear infection (~1955) Insomnia Measles (~1953) Menstrual cycle disorder (~1961) Mixed hyperlipidemia (02/04/11) Morbid obesity with BMI of 40.0-44.9, adult (02/04/11) Morbid obesity with BMI of 45.0-49.9, adult Obstructive sleep apnea syndrome (02/04/11) Peripheral neuropathy (~2015) Rosacea (~1989) Rubella (~1955) Shoulder pain (~2016) Type 2 diabetes mellitus without complication, with long-term current use of insulin (01/10/17) Surgical History Anesthesia History of tonsillectomy (~1952) Status post hysterectomy (~1986) Surgical procedure planned Family & Social History Family History Brother Age: 61 Sleep apnea Child Age: 52 Osteopenia Grandmother Cancer Mother Hypertension Sister Age: 64 Sleep apnea Migraines Family/Other Diabetes mellitus Father No problems noted. Safety & Behavioral: Feels Safe in Current Yes Environment Been Physically Hurt or No Threatened By a Person Tobacco & Substance use: Smoking Status Never smoker Substance Use Type does not use Meds Home Medications and Allergies Home Medications Medication Instructions Recorded Confirmed Type ASPIRIN (#ASPIRIN) 325 mg PO Q DAY #30 02/05/11 07/03/21 Rx magnesium 200 mg tablet 250 mg PO #0 02/21/16 07/03/21 History Glucose: Test Strips str Q DAY #100 07/08/16 07/03/21 Rx cholecalciferol (vitamin D3) 25 5,000 u Q DAY #0 08/12/16 07/03/21 History mcg (1,000 unit) tablet (Vitamin D3) travoprost 0.004 % eye drops 1 drp OPHTHALMIC (EYE) BEDTIME 11/24/17 07/03/21 History Resmed S9 VPAP #1 ea 08/01/18 07/03/21 History cinnamon bark 500 mg capsule mg PO cap 01/25/19 07/03/21 History metformin 500 mg tablet 500 mg PO BIDCC tab 01/25/19 07/03/21 History (Glucophage) Allertec 1 tab PO DAILY 10/09/19 07/03/21 History Turmeric Curcumin 1 tab PO DAILY 10/09/19 07/03/21 History multivitamin with minerals 1 tab PO DAILY 10/09/19 07/03/21 History (Hair,Skin and Nails) omega-3 fatty acids 500 mg capsule 500 mg PO DAILY 10/09/19 07/03/21 History insulin glargine 100 unit/mL (3 15 unit SUBCUT QPM 01/10/20 07/03/21 History mL) subcutaneous pen (Lantus Solostar U-100 Insulin) Biotin 5,000 mcg PO DAILY 04/29/20 07/03/21 History metoprolol tartrate 50 mg tablet 50 mg PO BID #180 tab 07/25/20 07/03/21 Rx (Lopressor) omeprazole magnesium 20 mg 20 mg PO Q DAY #90 tab 07/25/20 07/03/21 Rx tablet,delayed release (Prilosec OTC) dulaglutide 0.75 mg/0.5 mL 0.75 mg SUBCUT QWEEK ml 09/09/20 07/03/21 History subcutaneous pen injector (Trulicity) furosemide 40 mg tablet 40 mg PO QAM #90 tab 09/22/20 07/03/21 Rx glipizide 10 mg tablet, extended 10 mg PO DAILY #30 tab 01/19/21 07/03/21 Rx release 24 hr atorvastatin 40 mg tablet 40 mg PO HS #90 tab 04/20/21 07/03/21 Rx gemfibrozil 600 mg tablet 600 mg PO BIDAC #180 tab 04/20/21 07/03/21 Rx losartan 50 mg tablet See Rx Instructions .ROUTE 04/20/21 07/03/21 Rx .COMPLEX #180 tablet Allergies Allergy/AdvReac Type Severity Reaction Status Date / Time lisinopril [LISINOPRIL] AdvReac Intermediate COUGH Verified 07/09/21 21:14 Review of Systems Review of Systems ROS: Yes All systems reviewed with the patient and are negative except as otherwise documented Exam Vital Signs (past 8 hours): - 07/09/21 23:30 07/10/21 00:00 07/10/21 00:30 Pulse Rate 99 H 95 H 94 H Respiratory Rate Blood Pressure Pulse Oximetry 95 94 94 07/10/21 01:00 07/10/21 01:17 07/10/21 01:30 Pulse Rate 95 H 103 H 96 H Respiratory Rate Blood Pressure 150/65 H 126/61 Pulse Oximetry 95 97 95 07/10/21 02:00 07/10/21 02:01 07/10/21 02:18 Pulse Rate 95 H 95 H 97 H Respiratory Rate 20 Blood Pressure 129/63 Pulse Oximetry 96 96 98 07/10/21 02:30 07/10/21 03:06 07/10/21 03:30 Pulse Rate 99 H 109 H 94 H Respiratory Rate 29 H 20 Blood Pressure 132/61 Pulse Oximetry 98 97 07/10/21 03:53 07/10/21 03:54 07/10/21 04:00 Pulse Rate 96 H 95 H 92 H Respiratory Rate 19 18 17 Blood Pressure 100/50 L 90/49 L Pulse Oximetry 96 96 96 07/10/21 04:30 07/10/21 04:44 07/10/21 05:00 Pulse Rate 90 90 92 H Respiratory Rate 20 18 19 Blood Pressure 103/52 L 109/56 L Pulse Oximetry 93 95 96 07/10/21 05:01 07/10/21 05:30 07/10/21 06:00 Pulse Rate 92 H 91 H 89 Respiratory Rate 20 20 17 Blood Pressure 123/58 L 123/57 L Pulse Oximetry 97 93 97 07/10/21 06:01 07/10/21 06:30 Pulse Rate 87 87 Respiratory Rate 19 18 Blood Pressure 113/53 L 105/53 L Pulse Oximetry 98 96 Oxygen Delivery Method Nasal Cannula Oxygen Flow Rate 4 Narrative Exam Narrative: Elderly female sitting in a bedside chair in the emergency department sleeping but is easily aroused HEENT-unremarkable Neck-no bruits Lungs-good breath sounds clear no abnormal breath sounds Heart-regular rate and rhythm Abdomen-obese positive bowel tones nontender Extremities-chronic lower extremity edema but no skin changes or breakdown no redness Neuro-alert orient x3 no focal findings gait not tested Objective Labs Result Diagrams: 07/10/21 05:40 07/10/21 05:40 Labs: Laboratory Results - last 24 hr 07/09/21 07/09/21 07/09/21 21:11 21:20 21:20 WBC 15.2 H RBC 3.17 L Hgb 9.8 L Hct 28.7 L MCV 90.5 MCH 31.1 MCHC 34.3 RDW 15.2 H Plt Count 224 Neut % (Auto) 83.4 H Lymph % (Auto) 6.0 L [place] % (Auto) 9.8 Eos % (Auto) 0.4 L Baso % (Auto) 0.4 Neut # (Auto) 38504 H Lymph # (Auto) 900 L [place] # (Auto) 1500 H Eos # (Auto) 100 Baso # (Auto) 100 Sodium 135 L Potassium 3.9 Chloride 99 Carbon Dioxide 24 BUN 34 H Creatinine 1.25 H Estimated GFR 46 L BUN/Creatinine Ratio 27.2 H Glucose 357 H Lactate Calcium 9.5 Total Bilirubin 0.6 AST 45 H ALT 25 Alkaline Phosphatase 41 Total Protein 6.9 Albumin 4.1 Globulin 2.8 Albumin/Globulin Ratio 1.5 Urine RBC Urine WBC Ur Squamous Epith Cells Urine Bacteria Ur Culture Indicated? SARS-CoV-2 (PCR) Negative 07/09/21 07/09/21 07/10/21 21:20 21:30 05:40 WBC 13.5 H RBC 3.04 L Hgb 9.3 L Hct 27.4 L MCV 90.0 MCH 30.5 MCHC 33.9 RDW 14.7 Plt Count 214 Neut % (Auto) Lymph % (Auto) [place] % (Auto) Eos % (Auto) Baso % (Auto) Neut # (Auto) Lymph # (Auto) [place] # (Auto) Eos # (Auto) Baso # (Auto) Sodium Potassium Chloride Carbon Dioxide BUN Creatinine Estimated GFR BUN/Creatinine Ratio Glucose Lactate 1.4 Calcium Total Bilirubin AST ALT Alkaline Phosphatase Total Protein Albumin Globulin Albumin/Globulin Ratio Urine RBC 1-5/hpf D Urine WBC 10-30/hpf H Ur Squamous Epith Cells 0-1 /hpf Urine Bacteria Many (>30) H Ur Culture Indicated? Culture not indicate SARS-CoV-2 (PCR) 07/10/21 05:40 WBC RBC Hgb Hct MCV MCH MCHC RDW Plt Count Neut % (Auto) Lymph % (Auto) [place] % (Auto) Eos % (Auto) Baso % (Auto) Neut # (Auto) Lymph # (Auto) [place] # (Auto) Eos # (Auto) Baso # (Auto) Sodium 136 L Potassium 3.8 Chloride 101 Carbon Dioxide 27 BUN 31 H Creatinine 1.17 H Estimated GFR 49 L BUN/Creatinine Ratio 26.5 H Glucose 277 H Lactate Calcium 9.5 Total Bilirubin AST ALT Alkaline Phosphatase Total Protein Albumin Globulin Albumin/Globulin Ratio Urine RBC Urine WBC Ur Squamous Epith Cells Urine Bacteria Ur Culture Indicated? SARS-CoV-2 (PCR) Assessment & Plan Assessment & Plan narrative: 1. Fever/UTI-patient with UTI and symptoms suggestive of more than a simple cystitis. This seems to be more systemic in nature with fever the GI symptoms the generalized weakness etcetera. She has been placed on broad-spectrum parental antibiotics appropriately. Urine cultures are pending as are blood cultures. Antibiotics can will be tailored as appropriate based on culture results. I presume this to be the source of her leukocytosis and fever as there is no other obvious symptom or finding on exam. She denies any respiratory symptoms. Might consider doing chest x-ray if she develops anything in the way of respiratory symptoms 2. Diabetes-patient quite hyperglycemic likely secondary to her systemic infection as above. Will continue usual medications including her insulin and cover her with insulin as well. Obviously she is quite insulin resistant and will require probably large doses of coverage insulin as well 3. Anemia-patient newly anemic or least more anemic than she has been in the past. She does have an element of chronic anemia likely related to chronic disease. She has normal indices and there has been no known source of blood loss per the patient. Will guaiac stools check iron folate B12 levels. Continue to monitor numbers for now. Unless there is evidence of GI bleeding with positive stool guaiac etcetera I am not anticipating performing endoscopy during this hospitalization that can be accomplished as an outpatient, if felt to be appropriate. 4. Hypertension-patient initially minimally hypertensive upon presentation but after treatment as above she has become modestly hypotensive. I am going to hold her antihypertensive therapy for now and monitor her. She is on beta- yoana and ARB and first medication I would return would be the beta-yoana but for now I am going to hold off on that. She did receive a single dose of her beta-yoana in the ER. She may need to continue on that but at a lower dose 5. Morbid obesity-patient is morbidly obese with a BMI 45+. This I think is contributed to her hyperglycemia her diabetes is contributed to her global weakness in her inability to get around on her own because of the infection etcetera. Will also complicate her recovery and treatment here in the hospital requiring additional skilled therapies and additional assistance from nursing staff etcetera 6. Weakness-will have her seen by Physical therapy. I presume that treatment of her infection etcetera as above will tremendously help with this 7. Chronic renal failure stage 3 a-patient's numbers seem to be stable and at baseline. She does not appear to be overly dehydrated and does not appear to have any significant prerenal azotemia etcetera. Continue to monitor. Given her global weakness and her emesis I will continue some low level maintenance IV fluids for now however 8. GI-patient with significant GI symptoms with nausea and vomiting but no lower tract symptoms. Will monitor for evidence of GI bleeding but treat her upper tract symptoms with antiemetics etcetera. Again I presume treatment of her underlying infection will resolve this set of symptoms 9. Sleep apnea-patient would benefit from use of CPAP/BiPAP here in the hospital for treatment of her sleep apnea. Will consult respiratory therapy for same 10. VTE prophylaxis-patient would benefit from Lovenox as VTE prophylaxis which is not contraindicated in this case. This is been ordered. 11. Code status-patient should be a full code in event of sudden cardiac or respiratory arrest and that status is verified with the patient as well Patient deserves inpatient hospitalization given her degree of illness her failure to respond to appropriate outpatient treatment after her last ER visit her inability to walk to manage herself her extensive comorbidities as above etcetera. She will likely be in the hospital greater than 48 hours that will span 2 separate midnights. Anticipate she will be able to return home as she improves after treatments as above. COVID-19 COVID-19 status: Negative
[2021-07-10] MEDS: ACETAMINOPHEN 325 MG TABLET 650 MG PO ×3 (10:54→22:03)
[2021-07-10 11:44] LABS: Iron 20 ug/dL (37-170)
[2021-07-10 11:57] LABS: Influenza A - CEPHEID Flu A NEGATIVE (NEGATIVE); Influenza B - CEPHEID Flu B NEGATIVE (NEGATIVE)
--- NOTE | 2021-07-10 12:15 | PT.IIE ---
Surgical History (Last Reviewed 07/10/21 @ 07:26 by Ivan Recinos MD) Anesthesia History of tonsillectomy (~1952) Status post hysterectomy (~1986) Surgical procedure planned Medical History (Last Reviewed 07/10/21 @ 07:26 by Ivan Recinos MD) Ankle pain (~1953) Asthma (~1958) Behaviorally induced insufficient sleep syndrome Carpal tunnel syndrome (~1997) Cataracts, bilateral (~1999) Chicken pox (~1953) Chlamydia (~1976) Chronic renal failure, stage 3a Diabetes type 2, controlled Endometriosis Essential hypertension (02/04/11) Excessive daytime sleepiness Fibroids Fibromyalgia Foot pain (~1999) Glaucoma (02/04/11) Hearing loss (~1955) History of recurrent ear infection (~1955) Insomnia Measles (~1953) Menstrual cycle disorder (~1961) Mixed hyperlipidemia (02/04/11) Morbid obesity with BMI of 40.0-44.9, adult (02/04/11) Morbid obesity with BMI of 45.0-49.9, adult Obstructive sleep apnea syndrome (02/04/11) Peripheral neuropathy (~2015) Rosacea (~1989) Rubella (~1955) Shoulder pain (~2016) Type 2 diabetes mellitus without complication, with long-term current use of insulin (01/10/17) Physical Therapy Inpatient Evaluation/Re-Eval M1 PT/OT-IP Prior Functional Status Start: 07/10/21 13:10 Freq: NEEDED Status: Active Protocol: Document 07/10/21 12:15 AB (Rec: 07/10/21 13:21 AB [id number]) Medical Review Prior Functional Status Medical History Reviewed Yes Communication able to make needs known Mobility and Gait pt stated that she is modified independent with all mobilities and ambulation without AD; occasionally but very rarely uses a SPC Social History Household Members none Living Arrangements Apartment/Condo Number of Floors (Floors) One Floor Number of Stairs To Enter/Railing? no steps to enter Home Environment Standard Height Toilet,Tub/ Shower Home Equipment Shower Seat without Backrest, Hand Held Shower Additional Social History Comment pt stated that her sister lives a few apartments away and she can call to assist if needed M2 PT-IP Current Condition Start: 07/10/21 13:10 Freq: NEEDED Status: Active Protocol: Document 07/10/21 12:15 AB (Rec: 07/10/21 13:21 AB [id number]) Physical Therapy Current Condition Current Condition Evaluation Date 07/10/21 Treatment Diagnosis UTI; s/p fall; difficulty in walking Onset Date 07/10/21 M3 PT-IP Subjective Start: 07/10/21 13:10 Freq: NEEDED Status: Active Protocol: Document 07/10/21 12:15 AB (Rec: 07/10/21 13:21 AB [email or web address]) Subjective Physical Therapy Visit Type Type Initial Evaluation Visit Start Time 12:15 Visit Stop Time 12:45 Total Visit Minutes 30 Number of LABORATORY MONITOR Visits 0 Physical Therapy Visit Comments Patient Comments agreeable to do PT Therapy Pain Assessment Pain When Pain Assessed At Rest Pain Present Pain Present Pain Reported Location Generalized Intensity 3 Scale Used Numeric (0 - 10) M4 PT-IP Mobility and Gait Start: 07/10/21 13:10 Freq: NEEDED Status: Active Protocol: Document 07/10/21 12:15 AB (Rec: 07/10/21 13:21 AB [email or web address]) PT-Bed Mobility Assessment Supine to Sit Supine to Sit Standby Assistance PT-Transfer Assessment Sit to and From Stand Sit to and from Stand Contact Guard Assistance Equipment Transfer Assistive Device Gait Belt,Front Wheeled Walker Orthotic/Prosthetic Devices or Brace: No Transfers Transfer Destination Toilet Transfer Technique ambulated Transfer Ability Level of Assist Contact Guard Assistance,1 Person Assistance,Use of Upper Extremities Comments Mobility Comments BP: 141/68 O2 sat 98% completed supine to sit SBA. completed sit to stand CGA and ambulated to the toilet using FWW CGA. pt is impulsive with LOB during standing while managing underwear/pants requiring min for steadiness. pt ambulated out of the toilet towards the sink using FWW CGA. able to stand SBA while completing handwashing. pt ambulated to the chair using FWW CGA. positioned on chair. set up lunch tray. call light within reach. Gait Assessment Gait Gait Assistance Required: Contact Guard Assist Distance (Feet) 12 Able to Maintain Weight Bearing Status Yes During Gait Assistive Devices Assistive Device Gait Belt,Front Wheeled Walker Orthotic/Prosthetic Devices or Brace: No Gait Deviations General Gait Pattern Decreased Stride Length, Decreased Feet Clearance Factors Limiting Gait Function Factors Limiting Gait Function Decreased Activity Tolerance, Decreased Sensation,Decreased Strength,Pain,Poor Balance, Poor Safety Awareness PT-Balance Assessment Sitting Balance and Reactions Static Sitting Balance Ability Good Dynamic Sitting Balance Ability Good Standing Balance and Reactions Static Standing Balance Ability Fair Dynamic Standing Balance Ability Fair Device Used FWW M5 PT-IP Objective Assessments Start: 07/10/21 13:10 Freq: NEEDED Status: Active Protocol: Document 07/10/21 12:15 AB (Rec: 07/10/21 13:21 AB [email or web address]) Orientation Orientation/Cognition Level of Alertness Alert Orientation Name,Place,Situation Language Function Ability Hard of Hearing Safety Awareness Decreased Safety Awareness Memory Description No Deficits Noted Gross Range of Motion Lower Extremity ROM Assessment Within Functional Limits Strength Lower Extremity Strength Assessment Left Impaired Hip 3+/5 Knee 3+/5 Sensation Assessment Sensation Gross Sensation Right LE Impaired,Left LE Impaired Sensation Description Paresthesia,Numbness,Pain Comments Sensation Comments pt has B feet neuropathy Muscle Tone Muscle Tone WNL Yes M6 PT-IP Treatment Start: 07/10/21 13:10 Freq: NEEDED Status: Active Protocol: Document 07/10/21 12:15 AB (Rec: 07/10/21 13:21 AB [email or web address]) Physical Therapy Treatment Education Education Provided Safety M7 PT-IP Assessment and Plan Start: 07/10/21 13:10 Freq: NEEDED Status: Active Protocol: Document 07/10/21 12:15 AB (Rec: 07/10/21 13:21 AB [email or web address]) PT Summary Assessment and Plan Potential Rehabilitation Potential Fair Status of Condition at Evaluation Stable Summary Impairments Pain,ROM,Strength,Balance, Coordination,Sensation,Tone, Cognition,Bed Mobility, Transfers,Gait,Activity Tolerance Assessment Summary pt requiring CGA with ambulation using FWW. pt is impulsive and requires cues for safety. will continue to assess progress. at this time , pt will require assist and may benefit from HHPT. Goals Bed Mobility Goal Independent Transfer Goal Independent,Front Wheeled Walker Gait Goal Independent,Front Wheel Walker Gait Distance 200 Other Goals improve ambulation without AD/ SPC 300 ft mod I Days to Meet Goals 5 Frequency of Treatment Frequency Of Treatment Once a Day Treatment Plan Physical Therapy Treatment Plan Bed Mobility Training,Transfer Training,Gait Training, Therapeutic Exercise,Balance Retraining,Discharge Planning, Hot or Cold Pack,Neuromuscular Re-ed,Coordination Retraining Precautions Other Precautions falls Recommendations To Nursing Amount of Assist Needed 1 Person Assist Discharge Recommendations PT Discharge Recommendations Home with Assistance,Home Health Transportation Needs at Discharge Private Vehicle
[2021-07-10] MEDS: ENOXAPARIN 40 MG/0.4 ML SYRINGE SUBCUT (12:23)
[2021-07-10] MEDS: SODIUM CHLORIDE 0.9% 1,000 ML 80 ML IV (12:23)
[2021-07-10] MEDS: INSULIN LISPRO 100 UNIT/ML 3ML VIAL SUBCUT ×3 (12:31→20:50)
[2021-07-10 12:45] LABS: Folate > 20.0 ng/mL (2.76-20.0); Vitamin B12 515 pg/mL (239-931)
[2021-07-10] MEDS: METFORMIN HCL 500 MG TABLET PO (16:31)
[2021-07-10] MEDS: gemfibroziL 600 MG TABLET PO (16:31)
[2021-07-10 16:59] LABS: Enterococcus species Not Detected (Not Detect)
[2021-07-10 17:00] LABS: Acinetobacter baumannii Not Detected (Not Detect); Candida albicans Not Detected (Not Detect); Candida glabrata Not Detected (Not Detect); Candida krusei Not Detected (Not Detect); Candida parapsilosis Not Detected (Not Detect); Candida tropicalis Not Detected (Not Detect); E. coli Detected (Not Detect); Enterobacter cloacae complex Not Detected (Not Detect); Enterobacteriaceae species Detected (Not Detect); Haemophilus influenzae Not Detected (Not Detect); KPC (carbapenem-resist gene) Not Detected (Not Detect); Listeria monocytogenes Not Detected (Not Detect); Neisseria meningitidis Not Detected (Not Detect); Proteus species Not Detected (Not Detect); Pseudomonas aeruginosa Not Detected (Not Detect); Serratia marcescens Not Detected (Not Detect); Staphylococcus species Not Detected (Not Detect); Streptococcus agalactiae (Gr B Not Detected (Not Detect); Streptococcus pneumonia Not Detected (Not Detect); Streptococcus pyogenes (Gr A) Not Detected (Not Detect); Streptococcus species Not Detected (Not Detect)
[2021-07-10] MEDS: INSULIN GLARGINE 100 UNIT/ML 3ML PEN 30 UNIT SUBCUT (17:15)
[2021-07-10] MEDS: LATANOPROST 0.005% OPHTH 2.5 ML 1 DROPS EYE-BOTH (20:49)
[2021-07-10] MEDS: METOPROLOL IR 25 MG TABLET PO (20:49)
[2021-07-11] VITALS: BP 156/78; PULSE 93; RESP 21; TEMP 36.3; O2SAT 95
[2021-07-11] MEDS: cefTRIAXone 2,000 MG in SODIUM CHLORIDE 0.9% 100 ML 200 MG IV (00:48)
[2021-07-11] MEDS: SODIUM CHLORIDE 0.9% 1,000 ML 80 ML IV (00:52)
[2021-07-11] MEDS: ACETAMINOPHEN 325 MG TABLET 650 MG PO ×3 (04:04→23:00)
[2021-07-11 05:39] LABS: Alanine Aminotransferase 26 IU/L (<35); Albumin 3.5 g/dL (3.5-5.0); Albumin Globulin Ratio 1.3 (1.0-2.8); Alkaline Phosphatase 37 U/L (38-126); Aspartate Aminotransferase 46 IU/L (14-36); BUN Creatinine Ratio 23.8 (6-22); Bilirubin Total 0.4 mg/dL (0.2-1.3); Blood Urea Nitrogen 24 mg/dL (7-17); Calcium 9.4 mg/dL (8.4-10.2); Carbon Dioxide 25 mmol/L (22-32); Chloride 103 mmol/L (98-107); Estimated Glomerular Filt Rate 59 mL/min (>60); Globulin 2.7 g/dL (1.7-4.1); Glucose 221 mg/dL (80-110); HEMOLYSIS < 15 (0-50); Potassium 3.9 mmol/L (3.4-5.1); Sodium 137 mmol/L (137-145); Total Protein 6.2 g/dL (6.3-8.2)
[2021-07-11 05:43] LABS: Hemoglobin 8.4 g/dL (12.0-16.0); Mean Corpuscular HGB Conc 33.5 % (30-36); Mean Corpuscular Hemoglobin 30.7 PG (26-34); Mean Corpuscular Volume 91.5 fL (80-100); Platelet Count 229 X10^3/uL (150-400); Red Blood Cell Count 2.73 X10^6/uL (4.0-5.2); Red Cell Distribution Width 14.5 % (11.6-14.8); White Blood Cell Count 8.5 X10^3/uL (4.5-11.0)
[2021-07-11 06:37] LABS: Add Manual Diff / Slide Review YES
[2021-07-11 07:00] VITALS: O2SAT 95
[2021-07-11 07:11] LABS: Anisocytosis 1+; Neutrophils Absolute Manual 5270 /uL (3000-5900); Total Cells Counted 100
[2021-07-11 07:55] VITALS: BP 157/75; PULSE 88; RESP 16; TEMP 36.7; O2SAT 96
[2021-07-11] MEDS: INSULIN LISPRO 100 UNIT/ML 3ML VIAL SUBCUT ×4 (08:53→20:47)
[2021-07-11] MEDS: ASPIRIN EC 325 MG TABLET PO (08:54)
[2021-07-11] MEDS: CHOLECALCIFEROL (VITAMIN D3) 5,000 UNIT TABLET 5000 UNIT PO (08:55)
[2021-07-11] MEDS: ENOXAPARIN 40 MG/0.4 ML SYRINGE SUBCUT (08:57)
[2021-07-11] MEDS: gemfibroziL 600 MG TABLET PO ×2 (08:57→17:15)
[2021-07-11] MEDS: METOPROLOL IR 25 MG TABLET PO (08:58)
[2021-07-11] MEDS: METFORMIN HCL 500 MG TABLET PO ×2 (08:58→17:15)
[2021-07-11] MEDS: MULTIVITAMIN 1 TABLET 1 TAB PO (08:58)
[2021-07-11] MEDS: PANTOPRAZOLE DR 20 MG TABLET PO (08:58)
[2021-07-11 09:51] VITALS: O2SAT 98
--- NOTE | 2021-07-11 10:24 | CM.DANOTE ---
DCP: Received case, EMR reviewed and met with patient. Introduced self and role. Was able to obtain information regarding patient's baseline activity level at home as well as her current living situation. DCP assessment completed with information currently available. Patient is a 75 year old female who admitted yesterday afternoon to the care of the hospitalist team. PCP: Dr Recinos Payer: Medicare/[facility] Met with patient in her room. She is sitting up in her chair and a contusion noted to her forehead. She is pleasant, alert and oriented. She lives alone in an apartment in [place], her sister lives a few apartments down, she states. She states that her baseline is self care and her sister provides transportation and helps as needed. Briefly discussed Home Health, which she declined due to my apartment is too cluttered but she is amenable to outpatient P.T., she feels she could benefit from PT. She is diabetic with bilateral LE neuropathy. Patient had recent fall at home due to reaching forward to pull on her socks and lost her balance and hit forehead on carpeted floor. She presented to ER with a fever and diagnosed with Fever/UTI. P: DCP to continue to follow closely, she will work with PT again today, we will continue to offer resources as needed. Patient is hopeful to go home with outpatient therapy. Nallely Bragg RN/Slot Machine Repairer Discharge Planning/Care Management CM Discharge Assessment Start: 07/11/21 10:17 Freq: Status: Active Protocol: Document 07/11/21 10:18 (Rec: 07/11/21 10:23 [id number]) Discharge Planning Assessment Assigned Obstetrician And Gynaecologist Nallely Bragg RN, Warehouse Insulation Worker Advance Directives? Yes: DPOA, POLST Advance Directives on File Yes: on file History Provided By Patient Prior Living Arrangements Apartment/Condo Household Members none Type of transporation used prior to Relies on Others admit Comment Has no current vehicle. Sister transports her. Independent with ADL's Yes Is patient alert and oriented? Yes Needs Assistance With Home Chores / Shopping Caregiver for Another No DME Already Rented / Owned Cane Barriers to Discharge No Discharge Plan Home Transportation Arrangement Sister Referrals Initiated Other Additional Comment Offered Home Health services which she declines due to my house is too cluttered. She is amenable to outpatient PT services. Whiteboard Updated in Patient Room with Yes name and ext. # of Obstetrician And Gynaecologist Review Status In Process Next Review Type Continued Stay Review
--- NOTE | 2021-07-11 10:43 | PT.IPTN ---
Physical Therapy Treatment Note M2 PT-IP Current Condition Start: 07/10/21 13:10 Freq: NEEDED Status: Active Protocol: Document 07/10/21 12:15 AB (Rec: 07/10/21 13:21 AB [id number]) Physical Therapy Current Condition Current Condition Evaluation Date 07/10/21 Treatment Diagnosis UTI; s/p fall; difficulty in walking Onset Date 07/10/21 M3 PT-IP Subjective Start: 07/10/21 13:10 Freq: NEEDED Status: Active Protocol: Document 07/11/21 10:31 KS (Rec: 07/11/21 12:21 KS [id number]) Subjective Physical Therapy Visit Type Type Treatment Note Visit Start Time 10:31 Visit Stop Time 10:43 Total Visit Minutes 12 Number of SEAT BUILDER Visits 1 Physical Therapy Visit Comments Patient Comments agreeable to do PT M4 PT-IP Mobility and Gait Start: 07/10/21 13:10 Freq: NEEDED Status: Active Protocol: Document 07/11/21 10:31 KS (Rec: 07/11/21 12:21 KS [id number]) PT-Transfer Assessment Sit to and From Stand Sit to and from Stand Contact Guard Assistance Equipment Transfer Assistive Device Gait Belt,Front Wheeled Walker Orthotic/Prosthetic Devices or Brace: No Transfers Transfer Destination Chair Transfer Technique ambulated w/ SPC Transfer Ability Level of Assist Contact Guard Assistance,1 Person Assistance,Use of Upper Extremities Comments Mobility Comments Pt in chair upon arrival from therapy and agreeable to ambulate. Pt impulsively stood while I was bringing her the FWW and had slight LOB forward but able to recover. She then requested to ambulate w/ cane and ambulated ~100 ft around room w/ SOC and CGA, no LOB but wide based gait w/ decreased stride and foot clearance. Instructed pt to use SPC at minimum while at home due to history of falls and poor balance and neuropathy, pt agreeable. Discussed HHPT and pt agreeable as well. Pt left in chair w/ all needs in reach. Gait Assessment Gait Gait Assistance Required: Contact Guard Assist Distance (Feet) 100 Able to Maintain Weight Bearing Status Yes During Gait Assistive Devices Assistive Device Gait Belt,Front Wheeled Walker Orthotic/Prosthetic Devices or Brace: No Gait Deviations General Gait Pattern Decreased Stride Length, Decreased Feet Clearance,Wide Based Gait Factors Limiting Gait Function Factors Limiting Gait Function Decreased Activity Tolerance, Decreased Sensation,Decreased Strength,Pain,Poor Balance, Poor Safety Awareness Comments Gait Comments Please refer to mobility section for details. Pt able to tolerate 100 ft but became fatigued. At baseline she typically ambulates a few blocks at a time so activity tolerance is decreased. PT-Balance Assessment Sitting Balance and Reactions Static Sitting Balance Ability Good Dynamic Sitting Balance Ability Good Standing Balance and Reactions Static Standing Balance Ability Fair Dynamic Standing Balance Ability Fair Device Used SPC M5 PT-IP Objective Assessments Start: 07/10/21 13:10 Freq: NEEDED Status: Active Protocol: Document 07/10/21 12:15 AB (Rec: 07/10/21 13:21 AB [id number]) Orientation Orientation/Cognition Level of Alertness Alert Orientation Name,Place,Situation Language Function Ability Hard of Hearing Safety Awareness Decreased Safety Awareness Memory Description No Deficits Noted Gross Range of Motion Lower Extremity ROM Assessment Within Functional Limits Strength Lower Extremity Strength Assessment Left Impaired Hip 3+/5 Knee 3+/5 Sensation Assessment Sensation Gross Sensation Right LE Impaired,Left LE Impaired Sensation Description Paresthesia,Numbness,Pain Comments Sensation Comments pt has B feet neuropathy Muscle Tone Muscle Tone WNL Yes M6 PT-IP Treatment Start: 07/10/21 13:10 Freq: NEEDED Status: Active Protocol: Document 07/11/21 10:31 KS (Rec: 07/11/21 12:21 KS [id number]) Physical Therapy Treatment Education Education Provided Safety M7 PT-IP Assessment and Plan Start: 07/10/21 13:10 Freq: NEEDED Status: Active Protocol: Document 07/11/21 10:31 KS (Rec: 07/11/21 12:21 KS [id number]) PT Summary Assessment and Plan Potential Rehabilitation Potential Fair Status of Condition at Evaluation Stable Summary Impairments Pain,ROM,Strength,Balance, Coordination,Sensation,Tone, Cognition,Bed Mobility, Transfers,Gait,Activity Tolerance Assessment Summary Pt CGA for transfers and ambulation w/ SPC and able to tolerate 100 ft. Increased fall risk due to poor safety awareness, balance, and proprioception. Pt agreeable to use SPC at home and have HHPT, but would also benefit from assistance at home. Goals Bed Mobility Goal Independent Transfer Goal Independent,Front Wheeled Walker Gait Goal Independent,Front Wheel Walker Gait Distance 200 Other Goals improve ambulation without AD/ SPC 300 ft mod I Days to Meet Goals 5 Frequency of Treatment Frequency Of Treatment Once a Day Treatment Plan Physical Therapy Treatment Plan Bed Mobility Training,Transfer Training,Gait Training, Therapeutic Exercise,Balance Retraining,Discharge Planning, Hot or Cold Pack,Neuromuscular Re-ed,Coordination Retraining Precautions Other Precautions falls Recommendations To Nursing Amount of Assist Needed 1 Person Assist Discharge Recommendations PT Discharge Recommendations Home with Assistance,Home Health Transportation Needs at Discharge Private Vehicle
--- NOTE | 2021-07-11 10:49 | P.PN_ITS ---
Subjective Subjective Date Patient Seen: 07/11/21 Time Patient Seen: 10:49 Interval history: Patient is feeling better. She was just up with physical therapy as I see her. Did pretty well needs little cuing in the little bit unsteady on her feet. Is probably pulled a muscle in her left thigh as part of her inability to get up at home and having to get to the phone to summon her sister. Blood sugars are still quite elevated Lab work shows mild iron deficiency and persistence of her anemia which is somewhat more dramatic today Patient without any other new symptoms. Exam Vital Signs (past 8 hours): - 07/11/21 07:55 07/11/21 09:51 Temperature 98.0 F Pulse Rate 88 Respiratory Rate 16 Blood Pressure 157/75 H Pulse Oximetry 96 98 Oxygen Delivery Method Room Air Oxygen Flow Rate 0 Objective Labs Result Diagrams: 07/11/21 05:00 07/11/21 05:00 Labs: Laboratory Results - last 24 hr 07/10/21 07/10/21 07/10/21 05:40 05:40 10:40 WBC RBC Hgb Hct MCV MCH MCHC RDW Plt Count Neut % (Auto) Lymph % (Auto) [place] % (Auto) Eos % (Auto) Baso % (Auto) Lymph # (Auto) [place] # (Auto) Baso # (Auto) Total Counted Seg Neutrophils % Band Neutrophils % Lymphocytes % (Manual) Monocytes % (Manual) Eosinophils % (Manual) Basophils % (Manual) Neutrophils # (Manual) RBC Morphology Anisocytosis Sodium Potassium Chloride Carbon Dioxide BUN Creatinine Estimated GFR BUN/Creatinine Ratio Glucose Calcium Iron 20 L Total Bilirubin AST ALT Alkaline Phosphatase Total Protein Albumin Globulin Albumin/Globulin Ratio Vitamin B12 515 Folate > 20.0 H A. baumannii (PCR) Katrin albicans (PCR) C. glabrata (PCR) C. krusei (PCR) C. parapsilosis (PCR) C. tropicalis (PCR) Enterobacteriac sp PCR E. cloacae complex PCR Enterococcus sp PCR E. coli (PCR) H. influenzae (PCR) Influenza A (RT-PCR) Flu a negative Influenza B (RT-PCR) Flu b negative Klebsiella oxytoca PCR Klebsiella pneumoniae List. monocytogenes PCR N. meningitidis (PCR) Proteus species (PCR) Serratia marcescens PCR Staphylococcus sp PCR Staph aureus (PCR) mecA-Methicil Res Gene Streptococcus sp PCR Group A Strep (PCR) Strep agalactiae (PCR) Strep pneumoniae (PCR) P. aeruginosa (PCR) Michele/B-Vanco Res Genes KPC-Carbap Res Gene PCR 07/10/21 07/11/21 07/11/21 23:10 05:00 05:00 WBC 8.5 RBC 2.73 L Hgb 8.4 L Hct 25.0 L MCV 91.5 MCH 30.7 MCHC 33.5 RDW 14.5 Plt Count 229 Neut % (Auto) Not Reportable Lymph % (Auto) Not Reportable [place] % (Auto) Not Reportable Eos % (Auto) Not Reportable Baso % (Auto) Not Reportable Lymph # (Auto) Not Reportable [place] # (Auto) Not Reportable Baso # (Auto) Not Reportable Total Counted 100 Seg Neutrophils % 59.0 Band Neutrophils % 3.0 Lymphocytes % (Manual) 27.0 Monocytes % (Manual) 5.0 Eosinophils % (Manual) 5.0 H Basophils % (Manual) 1.0 Neutrophils # (Manual) 5270 RBC Morphology See below Anisocytosis 1+ H Sodium 137 Potassium 3.9 Chloride 103 Carbon Dioxide 25 BUN 24 H Creatinine 1.01 Estimated GFR 59 L BUN/Creatinine Ratio 23.8 H Glucose 221 H Calcium 9.4 Iron Total Bilirubin 0.4 AST 46 H ALT 26 Alkaline Phosphatase 37 L Total Protein 6.2 L Albumin 3.5 Globulin 2.7 Albumin/Globulin Ratio 1.3 Vitamin B12 Folate A. baumannii (PCR) Not detected Katrin albicans (PCR) Not detected C. glabrata (PCR) Not detected C. krusei (PCR) Not detected C. parapsilosis (PCR) Not detected C. tropicalis (PCR) Not detected Enterobacteriac sp PCR Detected H E. cloacae complex PCR Not detected Enterococcus sp PCR Not detected E. coli (PCR) Detected H H. influenzae (PCR) Not detected Influenza A (RT-PCR) Influenza B (RT-PCR) Klebsiella oxytoca PCR Not detected Klebsiella pneumoniae Not detected List. monocytogenes PCR Not detected N. meningitidis (PCR) Not detected Proteus species (PCR) Not detected Serratia marcescens PCR Not detected Staphylococcus sp PCR Not detected Staph aureus (PCR) Not detected mecA-Methicil Res Gene Not Reportable Streptococcus sp PCR Not detected Group A Strep (PCR) Not detected Strep agalactiae (PCR) Not detected Strep pneumoniae (PCR) Not detected P. aeruginosa (PCR) Not detected Michele/B-Vanco Res Genes Not Reportable KPC-Carbap Res Gene PCR Not detected [facility] Medical History Ankle pain (~1953) Asthma (~1958) Behaviorally induced insufficient sleep syndrome Carpal tunnel syndrome (~1997) Cataracts, bilateral (~1999) Chicken pox (~1953) Chlamydia (~1976) Chronic renal failure, stage 3a Diabetes type 2, controlled Endometriosis Essential hypertension (02/04/11) Excessive daytime sleepiness Fibroids Fibromyalgia Foot pain (~1999) Glaucoma (02/04/11) Hearing loss (~1955) History of recurrent ear infection (~1955) Insomnia Measles (~1953) Menstrual cycle disorder (~1961) Mixed hyperlipidemia (02/04/11) Morbid obesity with BMI of 40.0-44.9, adult (02/04/11) Morbid obesity with BMI of 45.0-49.9, adult Obstructive sleep apnea syndrome (02/04/11) Peripheral neuropathy (~2015) Rosacea (~1989) Rubella (~1955) Shoulder pain (~2016) Type 2 diabetes mellitus without complication, with long-term current use of insulin (01/10/17) Surgical History Anesthesia History of tonsillectomy (~1952) Status post hysterectomy (~1986) Surgical procedure planned Family History Brother Age: 61 Sleep apnea Child Age: 52 Osteopenia Grandmother Cancer Mother Hypertension Sister Age: 64 Sleep apnea Migraines Family/Other Diabetes mellitus Father No problems noted. Social History household members: none Smoking Status: Never smoker alcohol intake: never Assessment & Plan Assessment & Plan narrative: 1. ID-patient with UTI and also growing bacteria from 1 of the blood cultures. Growing E coli the same E coli that she had identified with an ER visit earlier in the month. I will narrow her antibiotic spectrum to match the sensitivities we have obtained. Seems like a first generation cephalosporin should be good e nough and we can probably switch to that as an oral med when that seems clinically appropriate. Patient has been afebrile I would continue her with another 24 hours of parental antibiotics at least given the systemic nature of her infection with positive blood culture etcetera 2. Diabetes-patient quite hyperglycemic again probably in part due to her infection. She got her usual dose long-acting insulin last night I am going to give her another single dose of long-acting insulin this morning and continue to monitor. She is back on her usual oral medications in addition to the insulin and will continue to cover her with insulin for elevated blood sugars 3. Anemia-patient a bit more anemic this morning not surprising after some hydration. Iron was low B12 folic acid levels normal or certainly acceptable. I would presume this to be able element of iron deficiency anemia although she had not yet microcytic I would think this is really on. There is no evidence of GI bleeding at this point continue to monitor for that. Will start with iron replacement therapy and monitor numbers. Will likely need an outpatient evaluation with upper and lower endoscopy 4. Hypertension-patient's numbers are back to her baseline. I cut her beta- yoana dose in half yesterday. Will continue with at the higher dose the usual dose. If need be can reinstitute her other antihypertensives but will hold on those for the moment 5. Weakness-patient seen by Physical therapy action doing much better as expected with treatment of her underlying infection etcetera. Would benefit from home health services upon discharge as well I believe 6. GI-no additional GI symptoms at this time. I think treatment of her underlying infection is been the can with that 7. Sleep apnea-patient using CPAP and respiratory therapy has been consulted for assistance in managing this condition Patient needs another 24 hours at least in the hospital continue with parental antibiotics and monitoring of her hyperglycemia etcetera. She would benefit from ongoing skilled therapies as well Note: Greater than 30 minutes total time was spent on day of service, evaluating the patient on the floor, including examining the patient, discussing clinical course with clinical and nursing staff, reviewing clinical course in the computer, preparing documentation and writing orders for continued management of care, discussing status with family as appropriate, reviewing plans for the next 24 hours with both patient/family and nursing staff as appropriate. Quality VTE Deep Vein Thrombosis/Pulmonary Embolism Present on Admission: No
[2021-07-11] MEDS: CEFAZOLIN 2 GM/20 ML SYRINGE IV ×2 (11:13→19:27)
[2021-07-11] MEDS: INSULIN GLARGINE 100 UNIT/ML 3ML PEN 20 UNIT SUBCUT (12:36)
--- NOTE | 2021-07-11 12:41 | CM.DPC ---
Addendum entered by Reny Garcia R.N. 07/11/21 13:09: Called Jamie at [facility] and gave him update about referral. Let him know that he will be updated when patient discharges. Jamie indicated that they may be able to see patient as soon as Tuesday. [place] will just need DC Summary, as orders and face to face have already been faxed. Original Note: DCP Cont: Met with patient and discussed home health. Discussed with Dr. Recinos prior. After speaking to her, she agreed to home health. Let her know that she can do this for a short term, then, pursue out patient therapy. Let her know that nursing can check on her, do labs if needed, and can include P.T, and O.T. Her concern is that she has her quilting products nearby. Let patient know that they can come in short term, if needed, to discuss safety in the home as well. She did agree. Asked her about preference of agencies. Gave her Medicare Choice List. She decided on [employer], has local address. Gave patient a brochure for [place] [email or web address] [facility]. P: DCP to continue to follow. Will proceed with [employer] [facility]. Will fax over face sheet, will complete face to face, and H&P, as well as P.T. notes, and will follow up with contacting Jamie at [facility]. Reny Garcia RN/[employer]
[2021-07-11] MEDS: FERROUS SULFATE 325 MG TABLET PO (17:15)
[2021-07-11] MEDS: INSULIN GLARGINE 100 UNIT/ML 3ML PEN 45 UNIT SUBCUT (17:16)
[2021-07-11 19:24] VITALS: BP 161/79; PULSE 96; RESP 20; TEMP 36.6; O2SAT 96
[2021-07-11 19:35] VITALS: O2SAT 98
[2021-07-11] MEDS: LATANOPROST 0.005% OPHTH 2.5 ML 1 DROPS EYE-BOTH (20:49)
[2021-07-11] MEDS: METOPROLOL IR 50 MG TABLET PO (20:51)
[2021-07-11] MEDS: ATORVASTATIN 20 MG TABLET 40 MG PO (20:51)
[2021-07-11] MEDS: OXYCODONE IR 5 MG TABLET PO (23:51)
[2021-07-12] MEDS: CEFAZOLIN 2 GM/20 ML SYRINGE IV (02:36)
[2021-07-12 05:02] LABS: Hematocrit 25.8 % (36-46); Hemoglobin 8.8 g/dL (12.0-16.0)
[2021-07-12] MEDS: PANTOPRAZOLE DR 20 MG TABLET PO (05:48)
[2021-07-12] MEDS: gemfibroziL 600 MG TABLET PO (05:49)
[2021-07-12 08:00] VITALS: BP 131/63; PULSE 97; RESP 18; TEMP 36.4; O2SAT 99
[2021-07-12] MEDS: FERROUS SULFATE 325 MG TABLET PO (09:02)
[2021-07-12] MEDS: ASPIRIN EC 325 MG TABLET PO (09:03)
[2021-07-12] MEDS: METOPROLOL IR 50 MG TABLET PO (09:03)
[2021-07-12] MEDS: MULTIVITAMIN 1 TABLET 1 TAB PO (09:03)
[2021-07-12] MEDS: CHOLECALCIFEROL (VITAMIN D3) 5,000 UNIT TABLET 5000 UNIT PO (09:03)
[2021-07-12] MEDS: METFORMIN HCL 500 MG TABLET PO (09:03)
[2021-07-12] MEDS: ENOXAPARIN 40 MG/0.4 ML SYRINGE SUBCUT (09:04)
[2021-07-12 10:09] VITALS: O2SAT 92
--- NOTE | 2021-07-12 10:48 | PM.DS.1 ---
History of Present Illness History of Present Illness Date Patient Seen: 07/12/21 Time Patient Seen: 10:48 Chief complaint: fall, weakness Narrative: 75-year-old female well known to me admitted via emergency department because of UTI with weakness etcetera Patient actually presented to the emergency department after falling at home and being unable to get up on her own. She describes being increasingly weak over the last couple of days with fevers (to 101+), shaking chills, as well as some vomiting. She had some abdominal pain that was fairly diffuse as well over the last 48 hours. She has had no blood in her emesis or in her stool. No change in her bowel movements specifically no diarrhea. Patient actually had a fall while trying to change her socks sort of tipping over forward but found that she was unable to get up off the floor on her own. EMS was summoned and they recommended she be seen in the emergency department In the ER she was found to have a leukocytosis and probable return of her UTI based on urinalysis. Her vital signs were actually stable maybe minimally tachycardic. Lactate level was normal. She has had a drop in her hemoglobin and hematocrit verses testing done during prior ER visit. She was seen in the ER untreated on the sixth for UTI. She eventually grew E coli from the urine culture and was treated with nitrofurantoin which should been appropriate based on sensitivities from that culture. She was given some IV fluids some IV antibiotics repeat urine was cultured and she is admitted for further evaluation. Of note she is also quite hyperglycemic and has not been checking her blood sugars at home as she has run out of test strips and equipment to check her blood sugars at home. Discharge Providers Provider Date of admission: 07/10/21 02:10 Discharge Date: 07/12/21 Primary care physician: Ivan Recinos MD Consults: 07/10/21 11:17 Consult to Physical Therapy Evaluate & Treat Comment: Physician Instructions: Evaluate and Treat Consult to Respiratory Therapy Evaluate & Treat Comment: CPAP for sleep apnea Physician Instructions: Evaluate and treat 07/11/21 12:55 Consult to Home Health Routine Comment: Reason For Exam: Home Health RN, P.T, O.T. Discharge provider: Ivan Recinos MD Summary Hospital Course Discharge Diagnosis: 1. Urinary tract infection with E coli 2. Bacteremia with E coli 3. Anemia likely iron deficiency 4. Type 2 diabetes poorly controlled with hyperglycemia 5. Chronic renal failure stage 3 a 6. Obstructive sleep apnea of the adult 7. Hyperlipidemia 8. Essential hypertension 9. Morbid obesity with BMI 46 10. Left thigh pain 11. Generalized weakness status post ground level fall likely secondary to issues 1. And 2 above Hospital Course: Patient was admitted to the hospital because of her systemic symptoms generalized weakness falling at home etcetera. She was felt to have a probable recurrent urinary tract infection indeed did subsequently grow E coli again from a urine appears to be the same species as was seen previously earlier in the month. She also grew E coli from 1 of 2 blood cultures. She was initially started on broad-spectrum third generation cephalosporin this was tailored to inappropriate first generation cephalosporin 1 sensitivities for the E coli were determined. Patient was afebrile and progressively improved with all of her systemic symptoms as she was in the hospital and treated with antibiotic therapy Patient also found to be anemic somewhat more so than usual. Studies found her to have normal B12 and folic acid levels but low iron. She was started on iron replacement therapy and will need follow-up as an outpatient. There is no evidence of active her GI bleeding during this hospitalization Patient also had very poor control of her diabetes with blood sugars in excess of 300 at 1 point. Patient's baseline A1c done at the end of May was over 10 so this is not necessarily unusual for patient. She had her long-acting insulin increased slightly and had significant doses of coverage insulin administered. By the day of discharge she had much better blood sugars with blood sugars near 100 for the first time. Should go home and resume a diabetic diet as well as all of her usual medications Patient was somewhat hypotensive upon admission had her antihypertensives reduced and or held. They were slowly reintroduced and patient remained somewhat hypertensive by the time of discharge. She should resume all of her usual antihypertensives at home Patient's renal function remains stable Patient did use her CPAP machine for treatment of her sleep apnea during hospitalization Patient was seen by Physical therapy due to her global weakness etcetera. Fall she was much improved she did seem to have sustained some sort of injury during her fall and or inability to get up on her own. She would benefit from ongoing skilled therapies and this would best be served via home health. She will be set up for home health physical therapy as well as at least initial nursing evaluation Exam Vital Signs (past 8 hours): - 07/12/21 08:00 07/12/21 10:09 Temperature 97.6 F Pulse Rate 97 H Respiratory Rate 18 Blood Pressure 131/63 Pulse Oximetry 99 92 Oxygen Delivery Method Room Air Oxygen Flow Rate 0 Objective Labs Result Diagrams: 07/12/21 04:24 07/11/21 05:00 Labs: Laboratory Results - last 24 hr 07/11/21 07/12/21 20:30 04:24 Hgb 8.8 L Hct 25.8 L Nasal Screen MRSA (PCR) Negative for mrsa [facility] Medical History Ankle pain (~1953) Asthma (~1958) Behaviorally induced insufficient sleep syndrome Carpal tunnel syndrome (~1997) Cataracts, bilateral (~1999) Chicken pox (~1953) Chlamydia (~1976) Chronic renal failure, stage 3a Diabetes type 2, controlled Endometriosis Essential hypertension (02/04/11) Excessive daytime sleepiness Fibroids Fibromyalgia Foot pain (~1999) Glaucoma (02/04/11) Hearing loss (~1955) History of recurrent ear infection (~1955) Insomnia Measles (~1953) Menstrual cycle disorder (~1961) Mixed hyperlipidemia (02/04/11) Morbid obesity with BMI of 40.0-44.9, adult (02/04/11) Morbid obesity with BMI of 45.0-49.9, adult Obstructive sleep apnea syndrome (02/04/11) Peripheral neuropathy (~2015) Rosacea (~1989) Rubella (~1955) Shoulder pain (~2016) Type 2 diabetes mellitus without complication, with long-term current use of insulin (01/10/17) Surgical History Anesthesia History of tonsillectomy (~1952) Status post hysterectomy (~1986) Surgical procedure planned Family History Brother Age: 61 Sleep apnea Child Age: 52 Osteopenia Grandmother Cancer Mother Hypertension Sister Age: 64 Sleep apnea Migraines Family/Other Diabetes mellitus Father No problems noted. Social History household members: none Smoking Status: Never smoker alcohol intake: never Discharge Assessment & Plan Assessment and Plan Plan of Treatment: Patient will complete an additional 7 day course of oral antibiotics, specifically first generation cephalosporin which sensitivities for the E coli suggest should be appropriate Patient will continue usual medications for treatment of her diabetes including her long-acting insulin her Trulicity under oral medications Patient initiate and be seen by home health nursing and physical therapy Patient should be seen in the outpatient clinic by her PCP Dr. Recinos in approximately 7-14 days time Discharge Plan Discharge Plan Patient Disposition: Home Health Service Discharge orders & Medications Prescriptions: New latanoprost [Xalatan] 0.005 % Drops 1 drops EYE-BOTH BEDTIME Qty: 5 0RF ferrous sulfate 325 mg (65 mg iron) Tablet 325 mg PO BIDWM Qty: 60 4RF cephalexin 500 mg capsule 500 mg PO TID Qty: 21 0RF Continued ASPIRIN (#ASPIRIN) 325 mg PO Q DAY Qty: 30 0RF magnesium 200 MG tablet 250 mg PO DAILY Qty: 0 0RF cholecalciferol (vitamin D3) [Vitamin D3] 1,000 UNIT tablet 5,000 u Q DAY Qty: 0 0RF metoprolol tartrate [Lopressor] 50 mg tablet 50 mg PO BID Qty: 180 3RF Prilosec OTC 20 mg tablet,delayed release (DR/EC) 20 mg PO Q DAY Qty: 90 3RF furosemide 40 mg tablet 40 mg PO QAM Qty: 90 3RF glipizide 10 mg tablet extended release 24hr 10 mg PO DAILY Qty: 30 5RF atorvastatin 40 mg tablet 40 mg PO HS Qty: 90 3RF gemfibrozil 600 mg tablet 600 mg PO BIDAC Qty: 180 3RF losartan 50 mg tablet See Rx Instructions .ROUTE .COMPLEX Qty: 180 3RF Dose Instruction: TAKE 1 TABLET BY MOUTH TWICE DAILY Rx Instructions: TAKE 1 TABLET BY MOUTH TWICE DAILY cinnamon bark 500 mg capsule 500 mg PO DAILY 0RF Rx Instructions: Takes 1,000mg 3x a day metformin [Glucophage] 500 mg tablet 500 mg PO BIDCC 0RF Lantus Solostar U-100 Insulin 100 unit/mL (3 mL) insulin pen 30 unit SUBCUT QPM 0RF Trulicity 0.75 mg/0.5 mL pen injector 0.75 mg SUBCUT QWEEK 0RF Allertec 1 tab PO DAILY 0RF Rx Instructions: Allertec or Cetrizine or Loratidine. Either of the 3, just depends on whats bought. multivitamin with minerals [Hair,Skin and Nails] Tablet 1 tab PO DAILY 0RF omega-3 fatty acids 500 mg capsule 500 mg PO DAILY 0RF Turmeric Curcumin 1 tab PO DAILY 0RF Rx Instructions: 500 MG Biotin 5,000 mcg PO DAILY 0RF Glucose: Test Strips strip 1 str Q DAY 0RF (DME) Resmed S9 VPAP Qty: 1 0RF Dose Instruction: As directed Label Comments: Pressure: IPAP 20 EPAP 10 DME: [facility] Rx Instructions: As directed Pharmacist Comment: Continue usual home eye drops, no change intended Follow up/Referrals: Ivan Recinos MD [Primary Care Provider] - 2 Weeks (call for appointment when clinic opens) Diet/Activity/Treatments Diet: Diet as Tolerated and Carb-consistent/Diabetic Discharge Data Primary Care Provider: Ivan Recinos Attending Provider: Ivan Recinos Quality VTE Deep Vein Thrombosis/Pulmonary Embolism Present on Admission: No
[2021-07-12 10:56] VITALS: O2SAT 92
--- NOTE | 2021-07-12 11:10 | PT.IPTN ---
Physical Therapy Treatment Note M2 PT-IP Current Condition Start: 07/10/21 13:10 Freq: NEEDED Status: Discharge Protocol: Document 07/10/21 12:15 AB (Rec: 07/10/21 13:21 AB [id number]) Physical Therapy Current Condition Current Condition Evaluation Date 07/10/21 Treatment Diagnosis UTI; s/p fall; difficulty in walking Onset Date 07/10/21 M3 PT-IP Subjective Start: 07/10/21 13:10 Freq: NEEDED Status: Discharge Protocol: Document 07/12/21 11:10 AB (Rec: 07/12/21 14:36 AB [id number]) Subjective Physical Therapy Visit Type Type Treatment Note Visit Start Time 11:10 Visit Stop Time 11:21 Total Visit Minutes 11 Number of NURSING HOME ADMINISTRATOR Visits 0 Physical Therapy Visit Comments Patient Comments agreeable to do PT M4 PT-IP Mobility and Gait Start: 07/10/21 13:10 Freq: NEEDED Status: Discharge Protocol: Document 07/12/21 11:10 AB (Rec: 07/12/21 14:36 AB [id number]) PT-Transfer Assessment Sit to and From Stand Sit to and from Stand Standby Assistance,1 Person Assistance,Use of Upper Extremities Equipment Transfer Assistive Device None Orthotic/Prosthetic Devices or Brace: No Transfers Transfer Destination Chair Transfer Technique ambulated Transfer Ability Level of Assist Standby Assistance,Contact Guard Assistance Comments Mobility Comments pt just coming out from using the toilet and ambulated to the chair without AD SBA. pt agreed to do PT and ambulated in room without AD SBA to CGA with (+) LOB x 4 with recovery . LOB towards the R and posteriorly. pt educated on safety and use of SPC. pt completed ambulation in room using SPC SBA ~ 40 ft. No LOB and with steadier gait. pt agreed and understand use of SPC outdoors but stated that she has a small apartment and will hold on to things for support inside her house. educated pt on safety again and pt understood. left pt seated on chair with table and call light within reach. Gait Assessment Gait Gait Assistance Required: Standby Assistance,Contact Guard Assist Distance (Feet) 40 Able to Maintain Weight Bearing Status Yes During Gait Assistive Devices Assistive Device None,Gait Belt,Straight Cane Orthotic/Prosthetic Devices or Brace: No Gait Deviations General Gait Pattern Decreased Stride Length, Decreased Feet Clearance Factors Limiting Gait Function Factors Limiting Gait Function Decreased Activity Tolerance, Decreased Sensation,Decreased Strength,Poor Balance,Poor Safety Awareness M5 PT-IP Objective Assessments Start: 07/10/21 13:10 Freq: NEEDED Status: Discharge Protocol: Document 07/10/21 12:15 AB (Rec: 07/10/21 13:21 AB [id number]) Orientation Orientation/Cognition Level of Alertness Alert Orientation Name,Place,Situation Language Function Ability Hard of Hearing Safety Awareness Decreased Safety Awareness Memory Description No Deficits Noted Gross Range of Motion Lower Extremity ROM Assessment Within Functional Limits Strength Lower Extremity Strength Assessment Left Impaired Hip 3+/5 Knee 3+/5 Sensation Assessment Sensation Gross Sensation Right LE Impaired,Left LE Impaired Sensation Description Paresthesia,Numbness,Pain Comments Sensation Comments pt has B feet neuropathy Muscle Tone Muscle Tone WNL Yes M6 PT-IP Treatment Start: 07/10/21 13:10 Freq: NEEDED Status: Discharge Protocol: Document 07/12/21 11:10 AB (Rec: 07/12/21 14:36 AB [id number]) Physical Therapy Treatment Education Education Provided Safety M7 PT-IP Assessment and Plan Start: 07/10/21 13:10 Freq: NEEDED Status: Discharge Protocol: Document 07/12/21 11:10 AB (Rec: 07/12/21 14:36 AB [id number]) PT Summary Assessment and Plan Potential Rehabilitation Potential Good Summary Impairments Pain,ROM,Strength,Balance, Coordination,Sensation,Tone, Cognition,Bed Mobility, Transfers,Gait,Activity Tolerance Progress Towards Goals Progressing Toward Goals Assessment Summary pt requiring SBA to CGA with ambulation without AD with LOB but with recovery. recommending use of SPC and pt understood. pt has peripheral neuropathy on B feet affecting balance and ambulation. pt plans to go home. Goals Bed Mobility Goal Independent Transfer Goal Independent,Front Wheeled Walker Gait Goal Independent,Front Wheel Walker Gait Distance 200 Other Goals improve ambulation without AD/ SPC 300 ft mod I Days to Meet Goals 5 Frequency of Treatment Frequency Of Treatment Once a Day Treatment Plan Physical Therapy Treatment Plan Bed Mobility Training,Transfer Training,Gait Training, Therapeutic Exercise,Balance Retraining,Discharge Planning, Hot or Cold Pack,Neuromuscular Re-ed,Coordination Retraining Precautions Other Precautions falls Recommendations To Nursing Amount of Assist Needed 1 Person Assist Discharge Recommendations PT Discharge Recommendations Home with Assistance,Home Health Transportation Needs at Discharge Private Vehicle
--- NOTE | 2021-07-12 12:32 | CM.DPC ---
DCP Cont: Patient is discharging home today. Called Jamie at [facility] and gave him update. Faxed DC Summary to [facility], had already sent orders and face to face yesterday. P: Patient is discharging home today with [facility]. Reny Garcia RN/[employer]
--- NOTE | 2021-07-12 13:11 | PC.NURSE ---
Pt dressed and discharged with all belongings to be transported via pov with sister. Iv removed and no tele. Discussed discharge instructions with pt including discharge meds, meds to continue and time of last doses. Provided stroke education, medication education, and UTI education and answered all questions. Pt taken out via wheelchair by GIL.
== END 2021-07-12 13:23 | disposition home health service (06) ==
LOC: ED 07-10 01:40 → AC 07-10 02:11 → ICU 07-10 11:57
PROVIDERS: Admitting Provider Internal Medicine; Emergency Provider Emergency Medicine; PCP Internal Medicine; Referring Provider Emergency Medicine; Visit Provider Internal Medicine
DX: N39.0 Urinary tract infection, site not specified (principal); R78.81 Bacteremia; B96.20 Unspecified Escherichia coli [E. coli] as the cause of diseases classified elsewhere; R53.1 Weakness; I12.9 Hypertensive chronic kidney disease with stage 1 through stage 4 chronic kidney disease, or unspecified chronic kidney disease; D64.9 Anemia, unspecified; E11.65 Type 2 diabetes mellitus with hyperglycemia; E11.22 Type 2 diabetes mellitus with diabetic chronic kidney disease; N18.31 Chronic kidney disease, stage 3a; W18.39XA Other fall on same level, initial encounter; Y92.009 Unspecified place in unspecified non-institutional (private) residence as the place of occurrence of the external cause; K21.9 Gastro-esophageal reflux disease without esophagitis; E78.5 Hyperlipidemia, unspecified; G47.33 Obstructive sleep apnea (adult) (pediatric); E66.01 Morbid (severe) obesity due to excess calories; Z68.42 Body mass index [BMI] 45.0-49.9, adult; M79.652 Pain in left thigh; Z79.84 Long term (current) use of oral hypoglycemic drugs; Z79.4 Long term (current) use of insulin; Z20.822 Contact with and (suspected) exposure to COVID-19
CPT/HCPCS: 36415; 80048; 80053; 81003; 81015; 82607; 82746; 82962; 83540; 83605; 85007; 85014; 85018; 85025; 85027; 87040; 87077; 87086; 87150; 87186; 87502; 87635; 87797; 93005; 93010; 94760; 96361; 96365; 96366; 96372; 97116; 97161; 99217; 99220; 99225; 99285; C9803; G0378; J0690; J0696; J1650; J1815

== ENCOUNTER → 2021-07-23 11:00 | Outpatient (CLI) | payer MEDICARE, OTHER, SELFPAY ==
[2021-07-10 11:46] VITALS: BMI 45.1
[2021-07-23 11:54] LABS: Reticulocyte Count, Percent 4.2 % (1.1-2.6)
[2021-07-23 12:35] LABS: HEMOLYSIS < 15 (0-50); Iron 73 ug/dL (37-170)
[2021-07-23 12:37] LABS: Lactate Dehydrogenase 350 U/L (313-618)
[2021-07-23 12:46] LABS: Percent Iron Saturation 13 % (15-50); Total Iron Binding Capacity 548 ug/dL (265-497); Transferrin 407 mg/dL (206-381)
[2021-07-23 13:10] LABS: Ferritin 7 ng/mL (11-264)
[2021-07-24 07:09] LABS: Fructosamine 325 umol/L (0-285)
== END ==
PROVIDERS: PCP Internal Medicine; Referring Provider Student in an Organized Health Care Education/Training Program; Visit Provider Student in an Organized Health Care Education/Training Program
DX: D64.9 Anemia, unspecified (principal); E11.9 Type 2 diabetes mellitus without complications
CPT/HCPCS: 36415; 82728; 82985; 83540; 83550; 83615; 85045

== ENCOUNTER → 2021-08-01 11:29 | Outpatient (CLI) | payer MEDICARE, OTHER, SELFPAY ==
[2021-07-10 11:46] VITALS: BMI 45.1
== END ==
PROVIDERS: PCP Internal Medicine; Visit Provider Physician Assistant
DX: N34.3 Urethral syndrome, unspecified (principal)
CPT/HCPCS: 87077; 87086; 87186

== ENCOUNTER → 2021-09-15 09:11 | Outpatient (CLI) | payer MEDICARE, OTHER, SELFPAY ==
[2021-07-10 11:46] VITALS: BMI 45.1
[2021-09-15 10:17] LABS: Hemoglobin A1C% w Est Avg Glu 9.2 % (4.0-6.0)
[2021-09-15 10:19] LABS: Cholesterol 147 mg/dL (140-199); HDL Cholesterol 29 mg/dL (40-60); LDL Cholesterol Calculated 54 mg/dL (<100); Triglycerides 319 mg/dL (35-150)
[2021-09-15 10:48] LABS: Creatinine Urine Random 25.7 mg/dL
[2021-09-15 11:05] LABS: Microalbumin Urine Random < 0.6 mg/dL (0-1.6)
== END ==
PROVIDERS: PCP Internal Medicine; Referring Provider Student in an Organized Health Care Education/Training Program; Visit Provider Student in an Organized Health Care Education/Training Program
DX: E11.9 Type 2 diabetes mellitus without complications (principal); Z79.4 Long term (current) use of insulin
CPT/HCPCS: 36415; 80061; 82043; 82570; 83036

== ENCOUNTER → 2021-09-16 13:03 | Outpatient (CLI) | payer MEDICARE, OTHER, SELFPAY ==
[2021-07-10 11:46] VITALS: BMI 45.1
[2021-09-16 15:33] LABS: Campylobacter Not Detected (Not Detect); Clostridium difficile toxin AB Not Detected (Not Detect); Cryptosporidium Not Detected (Not Detect); Cyclospora cayetanensis Not Detected (Not Detect); Entamoeba histolytica Not Detected (Not Detect); Enteroaggregative E.coli Not Detected (Not Detect); Enteropathogenic E.coli Not Detected (Not Detect); Enterotoxigenic E.coli It/st Detected (Not Detect); Giardia lamblia Not Detected (Not Detect); Plesiomonsa shigelloides Not Detected (Not Detect); Salmonella Not Detected (Not Detect); Shiga-like toxin-prod E.coli Not Detected (Not Detect); Shigella/Enteroinvasive E.coli Not Detected (Not Detect); Vibrio Not Detected (Not Detect); Vibrio cholerae Not Detected (Not Detect); Yersinia enterocolitica Not Detected (Not Detect)
[2021-09-16 15:34] LABS: Adenovirus F 40/41 Not Detected (Not Detect); Astrovirus Not Detected (Not Detect); Norovirus GI/GII Not Detected (Not Detect); Rotavirus A Not Detected (Not Detect); Sapovirus Not Detected (Not Detect)
== END ==
PROVIDERS: PCP Internal Medicine; Referring Provider Internal Medicine Gastroenterology; Visit Provider Internal Medicine Gastroenterology
DX: R13.12 Dysphagia, oropharyngeal phase (principal); I10 Essential (primary) hypertension; Z86.010 Personal history of colon polyps; R19.7 Diarrhea, unspecified
CPT/HCPCS: 87507

== ENCOUNTER → 2021-10-09 11:25 | Outpatient (CLI) | payer MEDICARE, OTHER, SELFPAY ==
[2021-07-10 11:46] VITALS: BMI 45.1
[2021-10-09 11:57] LABS: COVID19 -Nasal RAPID Negative (Negative)
== END ==
PROVIDERS: PCP Internal Medicine; Visit Provider Surgery
DX: Z20.822 Contact with and (suspected) exposure to COVID-19 (principal); Z01.812 Encounter for preprocedural laboratory examination
CPT/HCPCS: 87635; C9803

== ENCOUNTER 2021-10-12 11:00 | Day surgery (SDC) | payer MEDICARE, OTHER, SELFPAY ==
[2021-07-10 11:46] VITALS: BMI 45.1
[2021-10-12] VITALS (7 sets, daily range): BP systolic 103–140; BP diastolic 55–76; PULSE 78–107; RESP 14–18; TEMP 35.8–36.7; O2SAT 97–100; BMI 44.1
--- NOTE | 2021-10-12 | PATH_ITS ---
[facility] Accession Number: [id number] No. of containers..03 Tissue . 01 Material submitted: . PART A: colon - TRANSVERSE COLON POLYP PART B: colon - ASCENDING COLON POLYPS PART C: colon - RANDOM COLON POLYP . 01 Diagnosis: A. Transverse Colon Polyp, Biopsy: No colonic mucosa present. Scant foreign body/plant material and bacterial contamination present. . B. Ascending Colon Polyps, Biopsy: Tubular adenoma x1. Additional fragments of foreign body/fecal/plant material. . C. Random Colon Polyp, Biopsy: Colonic mucosa with no diagnostic abnormality, consistent with polypoid redundancy. MRV 10/15/2021 1144 Local . 01 Electronically signed: . Blank Morales MD, Pathologist NPI- [id number] . 01 Gross description: . Part A: TRANSVERSE COLON POLYP: Received in formalin are 2 fragment(s) of pichardo, soft tissue measuring 1.0 x 0.7 x 0.5 cm to 1.0 x 0.7 x 0.3 cm submitted entirely in 1 cassette(s) Part B: ASCENDING COLON POLYPS: Received in formalin are multiple fragment(s) of pichardo, soft tissue measuring 2.5 x 1.0 x 0.1 cm in aggregate submitted entirely in 1 cassette(s) Part C: RANDOM COLON POLYP: Received in formalin are 2 fragment(s) of pichardo, soft tissue measuring 0.3 x 0.2 x 0.1 cm to 0.1 x 0.1 x 0.1 cm submitted entirely in 1 cassette(s) /CPE 10/13/2021 0631 Local . 01 Pathologist provided ICD-10: D12.2, Z12.11 . 01 CPT . 174278, [id number], [id number] Specimen Comment: A courtesy copy of this report has been sent to [phone] Performed at: 01 [facility] [address] [facility], [place], [place] [id number] MD Contreras Isaac MD Phone: [phone]
[2021-10-12] MEDS: SODIUM CHLORIDE 0.9% 1,000 ML 84 ML IV (12:02)
--- NOTE | 2021-10-12 12:05 | PM.HP.1 ---
History of Present Illness History of Present Illness Date Patient Seen: 10/12/21 Time Patient Seen: 12:05 Chief complaint: DX COLONOSCOPY Narrative: I reviewed my office note from September 15. No significant changes. Of uncertain clinical significance she did have enter a toxigenic E coli noted in the stool PCR. Patient History Medical History Ankle pain (~1953) Asthma (~1958) Behaviorally induced insufficient sleep syndrome Carpal tunnel syndrome (~1997) Cataracts, bilateral (~1999) Chicken pox (~1953) Chlamydia (~1976) Chronic renal failure, stage 3a Diabetes type 2, controlled Endometriosis Essential hypertension (02/04/11) Excessive daytime sleepiness Fibroids Fibromyalgia Foot pain (~1999) Glaucoma (02/04/11) Hearing loss (~1955) History of recurrent ear infection (~1955) Insomnia Measles (~1953) Menstrual cycle disorder (~1961) Mixed hyperlipidemia (02/04/11) Morbid obesity with BMI of 40.0-44.9, adult (02/04/11) Morbid obesity with BMI of 45.0-49.9, adult Obstructive sleep apnea syndrome (02/04/11) Peripheral neuropathy (~2015) Rosacea (~1989) Rubella (~1955) Shoulder pain (~2016) Type 2 diabetes mellitus without complication, with long-term current use of insulin (01/10/17) Surgical History Anesthesia History of tonsillectomy (~1952) Status post hysterectomy (~1986) Surgical procedure planned Family & Social History Family History Brother Age: 62 Sleep apnea Child Age: 53 Osteopenia Grandmother Cancer Mother Hypertension Sister Age: 65 Sleep apnea Migraines Family/Other Diabetes mellitus Father No problems noted. Social History: household members none Tobacco & Substance use: Smoking Status Never smoker alcohol intake never Substance Use Type does not use Meds Home Medications and Allergies Home Medications Medication Instructions Recorded Confirmed Type ASPIRIN (#ASPIRIN) 325 mg PO Q DAY ##30 02/05/11 07/10/21 Rx magnesium 200 mg tablet 250 mg PO DAILY ##0 02/21/16 07/12/21 History cholecalciferol (vitamin D3) 25 5,000 u Q DAY ##0 08/12/16 07/10/21 History mcg (1,000 unit) tablet (Vitamin D3) Resmed S9 VPAP #1 ea 08/01/18 07/10/21 History cinnamon bark 500 mg capsule 500 mg PO DAILY 01/25/19 07/12/21 History metformin 500 mg tablet 500 mg PO BIDCC 01/25/19 07/10/21 History (Glucophage) Allertec 1 tab PO DAILY Allergies 10/09/19 07/10/21 History Turmeric Curcumin 1 tab PO DAILY 10/09/19 07/10/21 History multivitamin with minerals 1 tab PO DAILY 10/09/19 07/10/21 History (Hair,Skin and Nails tablet) omega-3 fatty acids 500 mg capsule 500 mg PO DAILY 10/09/19 07/10/21 History insulin glargine 100 unit/mL (3 30 unit SUBCUT QPM 01/10/20 07/10/21 History mL) subcutaneous pen (Lantus Solostar U-100 Insulin) Biotin 5,000 mcg PO DAILY 04/29/20 07/10/21 History dulaglutide 0.75 mg/0.5 mL 0.75 mg SUBCUT QWEEK 09/09/20 07/10/21 History subcutaneous pen injector (Trulicity) atorvastatin 40 mg tablet 40 mg PO HS #90 tabs 04/20/21 07/10/21 Rx gemfibrozil 600 mg tablet 600 mg PO BIDAC #180 tabs 04/20/21 07/10/21 Rx losartan 50 mg tablet See Rx Instructions .Route 04/20/21 07/10/21 Rx .COMPLEX #180 tabs Glucose: Test Strips 1 str Q DAY 07/12/21 07/12/21 History ferrous sulfate 325 mg (65 mg 325 mg PO BIDWM #60 tabs 07/12/21 Rx iron) tablet latanoprost 0.005 % eye drops 1 drops EYE-BOTH BEDTIME #5 mL 07/12/21 Rx (Xalatan) metoprolol tartrate 50 mg tablet 50 mg PO BID #180 tabs 07/21/21 Rx (Lopressor) omeprazole magnesium 20 mg 20 mg PO Q DAY #90 tabs 07/21/21 Rx tablet,delayed release (Prilosec OTC) Disabled Parking #1 ea 07/27/21 07/27/21 Rx glipizide 10 mg tablet, extended 10 mg PO DAILY #90 tabs 07/27/21 Rx release 24 hr furosemide 40 mg tablet 40 mg PO QAM #90 tabs 09/16/21 Rx Allergies Allergy/AdvReac Type Severity Reaction Status Date / Time lisinopril [LISINOPRIL] AdvReac Intermediate COUGH Verified 10/12/21 12:07 Review of Systems Review of Systems ROS: Yes All systems reviewed with the patient and are negative except as otherwise documented Exam Vital Signs (past 8 hours): - 10/12/21 11:54 Temperature 96.4 F L Pulse Rate 107 H Respiratory Rate 18 Blood Pressure 140/76 Pulse Oximetry 97 Oxygen Delivery Method Room Air Oxygen Delivery Method Room Air Const General: cooperative HENMT Head: normal to inspection Eyes General: appearance normal, both eyes and all related structures Neck Neck: normal visual inspection Chest Chest: normal inspection of the chest Resp Effort & Inspection: normal respiratory effort Cardio Rate: regular rate GI Inspection: normal to inspection Skin General: no rashes or lesions noted Neuro General: patient alert and patient awake Extrem General: normal to inspection and no pedal edema Psych Appearance: grossly normal Assessment & Plan Assessment & Plan narrative: 76-year-old female with a history of colon polyps change in bowel habit. Iron deficiency anemia noted in July. Colonoscopy is pursued today. Time Spent With Patient Critical Care time: I spent a total of [] minutes of critical care time on this patient's care today; this time is exclusive of procedural time.
--- NOTE | 2021-10-12 12:08 | PM.PREOP ---
Pre-operative Note COVID-19 COVID-19 status: Negative Result date/Date tested (Pos, Neg/Pending): 10/09/21 Criteria for continued procedure: Possibility delay results in more complex future surgery or treatment Interval Note History & Physical reviewed/Exam performed by Physician: Yes Changes to H&P: Yes ASA Class (for procedural sedation): III
--- NOTE | 2021-10-12 12:36 | SUR.OPER ---
It was noted, during positioning, that the patient's left lower leg was edematous and bright red circumferentially from her ankle to her calf. Dr. Monsivais notified.
--- NOTE | 2021-10-12 13:26 | P.OP.COLON_ITS ---
Operative Date/Time/Diagnoses Date of procedure: 10/12/21 Time of procedure: 13:27 Pre-op diagnosis: Colon polyp history iron deficiency anemia change in bowel habits. Post-op diagnosis: same Procedure & Clinicians Study performed: Colonoscopy with hot snare polypectomy and biopsies Same procedure as scheduled: Yes Indications: Colon polyp history, change of bowel habit, iron deficiency anemia. Surgeon: Davon Monsivais Procedure Notes SCOAP/Timeout: Done Procedure in detail: After the risks and benefits were explained, written and verbal informed consent was obtained. The patient was brought into the procedure room and placed into the left lateral decubitus position. Please see nurse cosmetics and toiletries salesperson notes for sedation details. Digital rectal examination was accomplished. The scope was introduced into the patient and advanced under direct visualization to the cecum as identified by the appendiceal orifice and ileocecal valve. The scope was slowly withdrawn to carefully examine the mucosa for any defects or lesions. Comprehensive imaging was accomplished throughout the rectum including the dentate line. The colon was decompressed, the scope was then removed from the patient who tolerated the procedure well. Adult colonoscope was used at 1st. We could not advance past the transverse. Swapped out for a pediatric scope. Bowel prep fair Prolonged procedure time secondary to extreme difficulty with navigation. Twenty-two modifier was therefore requested. Scope withdrawal time: 10 minutes Sedation minutes: 45 Complications: none Impression: Patient had a very tortuous redundant colon. Navigation was extremely difficult and required a scope change, position change the stiffener, pressure. There was a 8 mm sessile polyp in the transverse colon removed with hot snare. In the right colon there were 2 polyps also removed with hot snare. These ranged in size from 5-6 mm. One of them was in the cecum 1 of them was in the proximal ascending. The terminal ileum was interrogated and appeared visually normal. I did not see any evidence of macroscopic colitis. Random colon biopsies were taken for exclusion of microscopic colitis. Grade 1 to grade 2 internal hemorrhoids were noted. Endoscopic diagnosis 1. Colon polyps 2. Fair bowel prep 3. Tortuous colon 4. Grade 1 to grade 2 hemorrhoids Post-procedure Plan for aftercare: 1. Await histopathology 2. Repeat colonoscopy is suggested for 3 years. 3. Consider upper endoscopy as there was no finding today to account for an iron deficiency anemia. Disposition: PACU
== END 2021-10-12 14:15 | disposition home or self-care (01) ==
PROVIDERS: PCP Internal Medicine; Referring Provider Internal Medicine Gastroenterology; Visit Provider Internal Medicine Gastroenterology
PROC: 0DJD8ZZ Inspection of Lower Intestinal Tract, Via Natural or Artificial Opening Endoscopic (ICD-10-PCS; CPT 45378; principal; 2021-10-12 12:30)
DX: R19.4 Change in bowel habit (principal); D50.9 Iron deficiency anemia, unspecified; Z86.010 Personal history of colon polyps; K64.0 First degree hemorrhoids; D12.2 Benign neoplasm of ascending colon
CPT/HCPCS: 45385; 45380; J2704

== ENCOUNTER → 2021-12-11 10:06 | Outpatient (CLI) | payer MEDICARE, OTHER, SELFPAY ==
[2021-07-10 11:46] VITALS: BMI 45.1
[2021-12-11 12:53] LABS: COVID19 -Nasal RAPID Negative (Negative)
== END ==
PROVIDERS: PCP Internal Medicine; Visit Provider Surgery
DX: Z20.822 Contact with and (suspected) exposure to COVID-19 (principal); Z01.812 Encounter for preprocedural laboratory examination
CPT/HCPCS: 87635; C9803

== ENCOUNTER 2021-12-14 12:01 | Day surgery (SDC) | payer MEDICARE, OTHER, SELFPAY ==
[2021-07-10 11:46] VITALS: BMI 45.1
[2021-12-14] VITALS (7 sets, daily range): BP systolic 92–144; BP diastolic 53–88; PULSE 87–95; RESP 10–21; TEMP 36.1–36.7; O2SAT 95–100; BMI 45.3
--- NOTE | 2021-12-14 | PATH_ITS ---
[facility] Accession Number: [id number] . 01 Material submitted: . PART A: small bowel - SMALL BOWEL BIOPSY PART B: gastrointestinal site - GASTRIC BIOPSIES PART C: gastrointestinal site - GASTRIC POLYPS . 01 Diagnosis: A. Small Bowel, Biopsy: Small bowel mucosa with no diagnostic abnormality. Negative for active inflammation, features of sprue, dysplasia, or malignancy. . B. Stomach, Biopsies: Antral mucosa with reactive gastropathy and mild chronic gastritis. Negative for Helicobacter by immunohistochemistry. Negative for intestinal metaplasia. Negative for dysplasia and malignancy. . C. Stomach, Polyps, Biopsies: Fundic gland polyps. No evidence of Helicobacter organisms on H/E stain. Negative for intestinal metaplasia. Negative for dysplasia and malignancy. MRV 12/17/2021 1452 Local . 01 Electronically signed: . Gladis Blake MD, Pathologist NPI- [id number] . 01 Gross description: . Part A: SMALL BOWEL BIOPSY: Received in formalin is 1 fragment(s) of pichardo, soft tissue measuring 0.3 x 0.2 x 0.2 cm submitted entirely in 1 cassette(s) Part B: GASTRIC BIOPSIES: Received in formalin are 3 fragment(s) of pichardo, soft tissue measuring 0.2 x 0.2 x 0.2 cm to 0.2 x 0.2 x 0.1 cm submitted entirely in 1 cassette(s) Part C: GASTRIC POLYPS: Received in formalin are 2 fragment(s) of pichardo, soft tissue measuring 0.3 x 0.2 x 0.2 cm to 0.2 x 0.1 x 0.1 cm submitted entirely in 1 cassette(s) /CPE 12/16/2021 1012 Local . 01 Microscopic: . B. An immunohistochemical stain was performed to evaluate for Helicobacter organisms and is negative. The control stain showed appropriate reactivity. . * This test was developed and its performance characteristics determined by [facility] [employer]. It has not been cleared or approved by the U.S. Food and Drug Administration. The FDA has determined that such clearance or approval is not necessary. This test is used for clinical purposes. It should not be regarded as investigational or for research. . 01 Pathologist provided ICD-10: R13.12 . 01 CPT . 239852, 879891, 002919, S03660 Specimen Comment: A courtesy copy of this report has been sent to [phone] Performed at: 01 [facility] [address] [place] [address], [place], [place] [id number] MD Contreras Isaac MD Phone: [phone]
--- NOTE | 2021-12-14 13:06 | P.HP_ITS ---
History of Present Illness History of Present Illness Date Patient Seen: 12/14/21 Time Patient Seen: 13:06 Chief complaint: EGD W/POSS BX Narrative: Patient is a pleasant 76-year-old female who presented upper endoscopy. She has a known history of iron deficiency anemia. She is a [employer]ism and does not accept blood products. She underwent colonoscopy for initial evaluation which was unremarkable. She was referred for upper endoscopy to rule out other causes of anemia. Patient History Medical History Ankle pain (~1953) Asthma (~1958) Behaviorally induced insufficient sleep syndrome Carpal tunnel syndrome (~1997) Cataracts, bilateral (~1999) Chicken pox (~1953) Chlamydia (~1976) Chronic renal failure, stage 3a Diabetes type 2, controlled Endometriosis Essential hypertension (02/04/11) Excessive daytime sleepiness Fibroids Fibromyalgia Foot pain (~1999) Glaucoma (02/04/11) Hearing loss (~1955) History of recurrent ear infection (~1955) Insomnia Measles (~1953) Menstrual cycle disorder (~1961) Mixed hyperlipidemia (02/04/11) Morbid obesity with BMI of 40.0-44.9, adult (02/04/11) Morbid obesity with BMI of 45.0-49.9, adult Obstructive sleep apnea syndrome (02/04/11) Peripheral neuropathy (~2015) Rosacea (~1989) Rubella (~1955) Shoulder pain (~2016) Type 2 diabetes mellitus without complication, with long-term current use of insulin (01/10/17) Surgical History Anesthesia History of tonsillectomy (~1952) Status post hysterectomy (~1986) Surgical procedure planned Family & Social History Family History Brother Age: 62 Sleep apnea Child Age: 53 Osteopenia Grandmother Cancer Mother Hypertension Sister Age: 65 Sleep apnea Migraines Family/Other Diabetes mellitus Father No problems noted. Social History: household members none Tobacco & Substance use: Smoking Status Never smoker alcohol intake never Substance Use Type does not use Meds Home Medications and Allergies Home Medications Medication Instructions Recorded Confirmed Type magnesium 200 mg tablet 250 mg PO DAILY ##0 02/21/16 12/14/21 History cholecalciferol (vitamin D3) 25 5,000 u Q DAY ##0 08/12/16 12/14/21 History mcg (1,000 unit) tablet (Vitamin D3) Resmed S9 VPAP #1 ea 08/01/18 07/10/21 History cinnamon bark 500 mg capsule 500 mg PO TID 01/25/19 12/14/21 History metformin 500 mg tablet 500 mg PO BIDCC 01/25/19 10/12/21 History (Glucophage) Allertec 1 tab PO DAILY Allergies 10/09/19 12/14/21 History Turmeric Curcumin 1 tab PO DAILY 10/09/19 12/14/21 History multivitamin with minerals 1 tab PO DAILY 10/09/19 10/12/21 History (Hair,Skin and Nails tablet) omega-3 fatty acids 500 mg capsule 500 mg PO DAILY 10/09/19 12/14/21 History insulin glargine 100 unit/mL (3 40 unit SUBCUT QPM 01/10/20 12/14/21 History mL) subcutaneous pen (Lantus Solostar U-100 Insulin) Biotin 5,000 mcg PO DAILY 04/29/20 12/14/21 History dulaglutide 0.75 mg/0.5 mL 0.75 mg SUBCUT QWEEK 09/09/20 12/14/21 History subcutaneous pen injector (Trulicity) atorvastatin 40 mg tablet 40 mg PO HS #90 tabs 04/20/21 10/12/21 Rx gemfibrozil 600 mg tablet 600 mg PO BIDAC #180 tabs 04/20/21 12/14/21 Rx losartan 50 mg tablet See Rx Instructions .Route 04/20/21 12/14/21 Rx .COMPLEX #180 tabs Glucose: Test Strips 1 str Q DAY 07/12/21 07/12/21 History latanoprost 0.005 % eye drops 1 drops EYE-BOTH BEDTIME #5 mL 07/12/21 12/14/21 Rx (Xalatan) metoprolol tartrate 50 mg tablet 50 mg PO BID #180 tabs 07/21/21 12/14/21 Rx (Lopressor) omeprazole magnesium 20 mg 20 mg PO Q DAY #90 tabs 07/21/21 12/14/21 Rx tablet,delayed release (Prilosec OTC) Disabled Parking #1 ea 07/27/21 07/27/21 Rx glipizide 10 mg tablet, extended 10 mg PO DAILY #90 tabs 07/27/21 12/14/21 Rx release 24 hr furosemide 40 mg tablet 40 mg PO QAM #90 tabs 09/16/21 12/14/21 Rx aspirin 325 mg tablet 325 mg PO DAILY 10/12/21 12/14/21 History ferrous sulfate 325 mg (65 mg 325 mg PO BID 10/12/21 12/14/21 History iron) tablet Allergies Allergy/AdvReac Type Severity Reaction Status Date / Time lisinopril [LISINOPRIL] AdvReac Intermediate COUGH Verified 12/14/21 12:34 Review of Systems Review of Systems Narrative: Fatigue. ROS: Yes All systems reviewed with the patient and are negative except as otherwise documented Exam Const General: cooperative, healthy appearing and No acute distress Nutritional Appearance: obese morbidly obese HENMT Head: atraumatic Resp Effort & Inspection: normal respiratory effort, able to speak in complete sentences and no audible wheezes Auscultation: clear to auscultation bilaterally Cardio Rate: regular rate Rhythm: regular rhythm GI Palpation: soft Assessment & Plan Assessment & Plan narrative: 1. Iron deficiency anemia 2. Diarrhea EGD today, further recommendations to follow Time Spent With Patient Critical Care time: I spent a total of [] minutes of critical care time on this patient's care today; this time is exclusive of procedural time.
[2021-12-14] MEDS: LACTATED RINGERS 1,000 ML 42 ML IV (13:09)
--- NOTE | 2021-12-14 13:31 | PM.OP.EGD ---
Operative Date/Time/Diagnoses Date of procedure: 12/14/21 Time of procedure: 13:17 Procedure Notes Procedure in detail: Surgeon: Sarai Major DO Procedure: Esophagogastroduodenoscopy with biopsy Preoperative diagnosis: 1. Iron deficiency anemia 2. Diarrhea Postoperative diagnosis: 1. Erosive gastritis, biopsied 2. Multiple gastric polyps, biopsied 3. Normal-appearing esophagus, regular Z-line 4. Normal-appearing duodenum, biopsied to rule out celiac sprue Medications: Monitored anesthesia care Preanesthesia Assessment An H and P was performed/updated and the Px?s ASA class is 3. The procedure was discussed in detail with the patient. The potential risks and complications including infection, bleeding, missed lesions, perforation, need for surgery in case of perforation, prolonged hospital stay, and were explained. A brief question and answer period was allotted and once all questions were answered, informed consent was obtained. The patient was brought back to the procedure room and placed on standard monitoring. The patient?s vital signs were monitored continuously throughout the entire procedure. Prior to starting, a timeout was performed to confirm the patient?s identity, allergies, medications, and procedure. Procedure in detail The patient was placed in left lateral decubitus position and a bite block was inserted. The tip of the upper endoscope was placed into the mouth and advanced without difficulty under direct visualization into the esophagus. Esophagus: Normal appearing esophagus, Z-line was regular at the GE junction Stomach: Erosive gastritis in the antrum and body with small shallow ulcerations. This was biopsied to rule out H pylori. Multiple small gastric polyps were found scattered throughout the stomach. These were biopsied. Duodenum: Normal appearing duodenum. Due to her iron deficiency anemia and diarrhea biopsies were obtained rule out celiac sprue. The patient tolerated the procedure well and will be brought back to the recovery area to be discharged once criteria are met. Complications There were no complications and estimated blood loss was minimal. Recommendations: Resume previous diet Continue outPx medications Follow up pathology results Repeat EGD will be determined if needed after pathology results are reviewed Office follow up to be scheduled An emergency contact number was given to the patient for any complications related to the procedure
== END 2021-12-14 14:17 | disposition home or self-care (01) ==
PROVIDERS: PCP Internal Medicine; Referring Provider Student in an Organized Health Care Education/Training Program; Visit Provider Student in an Organized Health Care Education/Training Program
PROC: 0DJ08ZZ Inspection of Upper Intestinal Tract, Via Natural or Artificial Opening Endoscopic (ICD-10-PCS; CPT 43235; principal; 2021-12-14 13:30)
DX: D50.9 Iron deficiency anemia, unspecified (principal); R19.7 Diarrhea, unspecified; E11.9 Type 2 diabetes mellitus without complications; Z79.4 Long term (current) use of insulin; Z79.84 Long term (current) use of oral hypoglycemic drugs; G47.33 Obstructive sleep apnea (adult) (pediatric); I12.9 Hypertensive chronic kidney disease with stage 1 through stage 4 chronic kidney disease, or unspecified chronic kidney disease; N18.30 Chronic kidney disease, stage 3 unspecified; K29.50 Unspecified chronic gastritis without bleeding; K31.7 Polyp of stomach and duodenum
CPT/HCPCS: 43239; 82962; J2704

== ENCOUNTER → 2022-03-10 15:32 | Outpatient (CLI) | payer MEDICARE, OTHER, SELFPAY ==
[2021-07-10 11:46] VITALS: BMI 45.1
[2022-03-10 16:32] LABS: Hemoglobin A1C% w Est Avg Glu 8.6 % (4.0-6.0)
== END ==
PROVIDERS: PCP Internal Medicine; Referring Provider Student in an Organized Health Care Education/Training Program; Visit Provider Student in an Organized Health Care Education/Training Program
DX: E11.9 Type 2 diabetes mellitus without complications (principal); Z79.4 Long term (current) use of insulin
CPT/HCPCS: 36415; 83036

== ENCOUNTER → 2022-09-08 11:50 | Outpatient (CLI) | payer MEDICARE, OTHER, SELFPAY ==
[2021-07-10 11:46] VITALS: BMI 45.1
[2022-09-08 13:48] LABS: Albumin 4.3 g/dL (3.5-5.0); BUN Creatinine Ratio 29.3 (6-22); Blood Urea Nitrogen 36 mg/dL (7-17); Calcium 10.4 mg/dL (8.4-10.2); Carbon Dioxide 30 mmol/L (22-32); Chloride 98 mmol/L (98-107); Cholesterol 149 mg/dL (140-199); Estimated Glomerular Filt Rate 46 mL/min (>60); Glucose 179 mg/dL (80-110); HDL Cholesterol 29 mg/dL (40-60); HEMOLYSIS < 15 (0-50); LDL Cholesterol Calculated 63 mg/dL (<100); Phosphorous 3.4 mg/dL (2.8-4.1); Potassium 3.9 mmol/L (3.4-5.1); Sodium 139 mmol/L (137-145); Triglycerides 285 mg/dL (35-150)
[2022-09-08 17:24] LABS: Creatinine Urine Random 93.3 mg/dL
[2022-09-08 17:29] LABS: Microalbumi Creatinin Ratio Ur 36.4 ug/mg CR (<30); Microalbumin Urine Random 3.4 mg/dL (0-1.6)
[2022-09-09 08:10] LABS: x Labcorp Estim. Avg Glu (eAG) 180 mg/dL (.); x Labcorp Hemoglobin A1c 7.9 % (4.8-5.6)
== END ==
PROVIDERS: PCP Internal Medicine; Referring Provider Student in an Organized Health Care Education/Training Program; Visit Provider Student in an Organized Health Care Education/Training Program
DX: E11.9 Type 2 diabetes mellitus without complications (principal); Z79.4 Long term (current) use of insulin
CPT/HCPCS: 36415; 80061; 80069; 82043; 82570; 83036

== ENCOUNTER → 2022-09-14 07:43 | Outpatient (CLI) | payer MEDICARE, OTHER, SELFPAY ==
[2021-07-10 11:46] VITALS: BMI 45.1
--- NOTE | 2022-09-14 08:17 | DI.MG.S_ITS ---
BILATERAL DIGITAL SCREENING MAMMOGRAM 3D/2D WITH CAD: 09/14/2022 CLINICAL: Routine screening. Comparison is made to exams dated: 10/18/2016 mammogram and 07/03/2013 mammogram - [facility]. Both breasts are heterogeneously dense, which may obscure small masses (category c / 51-75% glandular tissue). Current study was also evaluated with a Computer Aided Detection (CAD) system. No significant masses, calcifications, or other findings are seen in either breast. There has been no significant interval change. IMPRESSION: NEGATIVE There is no mammographic evidence of malignancy. A 1 year screening mammogram is recommended. Based on the Tyrer Cuzick model (a risk assessment model) the patient's lifetime risk is 3.8% and her 10 year risk is 3.8%. According to the ACR, ACS, and NCCN guidelines, an annual breast MRI exam along with mammogram is recommended if the patient's lifetime risk is 20% or greater. This exam was interpreted at Station ID: [id number]. NOTE: For mammograms, a report in lay terms will be sent to the patient. Approximately 15% of breast malignancies will not be visualized mammographically. In the management of a palpable breast mass, a negative mammogram must not discourage biopsy of a clinically suspicious lesion. Electronically Signed By: Jovani otero/antione:09/14/2022 10:23:59 copy to: Nikita Mahoney, Nikita Mahoney letter sent: Normal Exam ACR BI-RADS Category 1: Negative [id number]
== END ==
PROVIDERS: PCP Internal Medicine; Referring Provider Internal Medicine; Visit Provider Internal Medicine
DX: Z12.31 Encounter for screening mammogram for malignant neoplasm of breast (principal)
CPT/HCPCS: 77063; 77067

== ENCOUNTER → 2022-10-27 10:38 | Outpatient (CLI) | payer MEDICARE, OTHER, SELFPAY ==
[2021-07-10 11:46] VITALS: BMI 45.1
--- NOTE | 2022-10-27 10:40 | DI.RAD.S_ITS ---
PROCEDURE: XR TOE LT MIN 2V INDICATIONS: Great toe injury TECHNIQUE: 3 views of the 1st toe(s) acquired. COMPARISON: None. FINDINGS: Bones: Generalized decreased osseous mineralization noted. No fracture. First tarsometatarsal degenerative changes Soft tissues: No suspicious soft tissue densities. IMPRESSION: Osteopenia without fracture Approved by: Willy Amador M.D. on 10/27/2022 at 19:09
== END ==
PROVIDERS: PCP Internal Medicine; Referring Provider Nurse Practitioner Family; Visit Provider Nurse Practitioner Family
DX: S99.922A Unspecified injury of left foot, initial encounter (principal); S90.129A Contusion of unspecified lesser toe(s) without damage to nail, initial encounter; M85.872 Other specified disorders of bone density and structure, left ankle and foot; X58.XXXA Exposure to other specified factors, initial encounter
CPT/HCPCS: 73660

== ENCOUNTER → 2022-11-04 16:53 | Outpatient (CLI) | payer MEDICARE, OTHER, SELFPAY ==
[2021-07-10 11:46] VITALS: BMI 45.1
[2022-11-04 17:42] LABS: Appearance Urine UA CLEAR; Bilirubin Urine UA NEGATIVE (NEGATIVE); Color Urine UA YELLOW; Glucose Urine UA NEGATIVE (Negative); Ketones Urine UA NEGATIVE (NEGATIVE); Leukocyte Esterase Urine UA 3+ (NEGATIVE); Nitrite Urine UA NEGATIVE (Negative); Occult Blood Urine UA TRACE-INTACT (Negative); Protein Urine UA NEGATIVE (Negative); Urobilinogen Urine UA 0.2 E.U./dL (0.2)
[2022-11-04 17:52] LABS: RBC Urine 1-5/HPF (0-5/HPF); WBC Urine 10-30/HPF (0-5/HPF)
[2022-11-04 17:53] LABS: Bacteria Urine Occasional (0-1); Culture Indicated Urine Specimen Cultured; Squamous Epithelial Cell Urine None Seen (0-5/HPF)
== END ==
PROVIDERS: PCP Internal Medicine; Visit Provider Internal Medicine
DX: R30.0 Dysuria (principal)
CPT/HCPCS: 81001; 87077; 87086; 87186

== ENCOUNTER 2022-11-13 02:51 | Observation (INO) | payer MEDICARE, OTHER, SELFPAY ==
[2021-07-10 11:46] VITALS: BMI 45.1
[2022-11-13] VITALS (22 sets, daily range): BP systolic 128–179; BP diastolic 63–97; PULSE 80–116; RESP 17–30; TEMP 36.5–37.9; O2SAT 85–98; BMI 45.6
--- NOTE | 2022-11-13 02:58 | DI.RAD.S_ITS ---
PROCEDURE: XR CHEST 1V INDICATIONS: Hypoxia. TECHNIQUE: One view of the chest was acquired. COMPARISON: None. FINDINGS: Surgical changes and devices: None. Lungs and pleura: Low lung volumes. Questionable right infrahilar opacity. No pleural effusions. Mediastinum: Heart size is at the upper limit of normal. Bones and chest wall: Degenerative changes. IMPRESSION: Limited portable radiograph. Questionable right infrahilar opacity may represent atelectasis or airspace disease. CT findings separately dictated. No significant discrepancy from the prelim report. Dictated by: Ron Carmichael M.D. on 11/13/2022 at 7:14 Approved by: Ron Carmichael M.D. on 11/13/2022 at 7:16
--- NOTE | 2022-11-13 03:07 | ED_ITS ---
HPI - Weakness General Chief complaint: Weakness Stated complaint: UTI/Ecoli-weak. Time Seen by Provider: 11/13/22 02:58 Source: patient and EMS Mode of arrival: EMS History of Present Illness HPI Narrative: Patient is a 77-year-old female history of diabetes hypertension obesity recently diagnosed with an E coli UTI on 11/04/2022, that is pansensitive she was treated with Macrobid which is appropriate presenting today with increasing we akness. She feels that she is not gotten any better. Today she woke up to go the bathroom when she tripped and fell. She did not have any injury but was unable to get up due to severe weakness. She reports she crawled out to living room where her phone was. She is currently febrile with an O2 level of 90%. No obvious conversational dyspnea denies any cough chest pain or shortness of breath. Related Data Home Medications Medication Instructions Recorded Confirmed magnesium 200 mg tablet 250 mg PO DAILY ##0 02/21/16 11/09/22 cholecalciferol (vitamin D3) 25 5,000 u Q DAY ##0 08/12/16 11/09/22 mcg (1,000 unit) tablet (Vitamin D3) Resmed S9 VPAP #1 ea 08/01/18 11/09/22 cinnamon bark 500 mg capsule 500 mg PO TID 01/25/19 11/09/22 metformin 500 mg tablet 500 mg PO BIDCC 01/25/19 11/09/22 (Glucophage) Turmeric Curcumin 1 tab PO DAILY 10/09/19 11/09/22 multivitamin with minerals 1 tab PO DAILY 10/09/19 11/09/22 (Hair,Skin and Nails tablet) omega-3 fatty acids 500 mg capsule 500 mg PO DAILY 10/09/19 11/09/22 insulin glargine 100 unit/mL (3 40 unit SUBCUT QPM 01/10/20 11/09/22 mL) subcutaneous pen (Lantus Solostar U-100 Insulin) Biotin 5,000 mcg PO DAILY 04/29/20 11/09/22 dulaglutide 0.75 mg/0.5 mL 0.75 mg SUBCUT QWEEK 09/09/20 11/09/22 subcutaneous pen injector (Trulicity) Glucose: Test Strips 1 str Q DAY 07/12/21 11/09/22 aspirin 325 mg tablet 325 mg PO DAILY 10/12/21 11/09/22 Previous Rx's Medication Instructions Recorded latanoprost 0.005 % eye drops 1 drops EYE-BOTH BEDTIME #5 mL 07/12/21 (Xalatan) Disabled Parking #1 ea 07/27/21 glipizide 10 mg tablet, extended 10 mg PO DAILY #90 tabs 07/27/21 release 24 hr furosemide 40 mg tablet 40 mg PO QAM #90 tabs 09/13/22 atorvastatin 40 mg tablet 40 mg PO HS #90 tabs 10/11/22 gemfibrozil 600 mg tablet 600 mg PO BIDAC #180 tabs 10/11/22 losartan 50 mg tablet 50 mg PO BID #180 tabs 10/11/22 metoprolol tartrate 50 mg tablet 50 mg PO BID #180 tabs 10/11/22 (Lopressor) omeprazole 20 mg capsule,delayed 20 mg PO DAILY #90 caps 10/11/22 release nitrofurantoin macrocrystal 100 mg 100 mg PO BID #14 caps 11/05/22 capsule fluticasone propionate 50 2 spray intranasal BEDTIME #16 11/09/22 mcg/actuation nasal grams spray,suspension Allergies Allergy/AdvReac Type Severity Reaction Status Date / Time lisinopril [LISINOPRIL] AdvReac Intermediate COUGH Verified 11/09/22 13:43 Review of Systems Review of Systems ROS Unobtainable: All systems reviewed & are unremarkable except as noted in HPI and below Patient History Medical History Ankle pain (~1953) Asthma (~1958) Behaviorally induced insufficient sleep syndrome Carpal tunnel syndrome (~1997) Cataracts, bilateral (~1999) Chicken pox (~1953) Chlamydia (~1976) Chronic renal failure, stage 3a Diabetes type 2, controlled Endometriosis Essential hypertension (02/04/11) Excessive daytime sleepiness Fibroids Fibromyalgia Foot pain (~1999) Glaucoma (02/04/11) Hearing loss (~1955) History of recurrent ear infection (~1955) Hypercalcemia Insomnia Measles (~1953) Menstrual cycle disorder (~1961) Mixed hyperlipidemia (02/04/11) Morbid obesity with BMI of 40.0-44.9, adult (02/04/11) Morbid obesity with BMI of 45.0-49.9, adult Obstructive sleep apnea syndrome (02/04/11) Peripheral neuropathy (~2015) Rosacea (~1989) Rubella (~1955) Shoulder pain (~2016) Type 2 diabetes mellitus without complication, with long-term current use of insulin (01/10/17) Surgical History Anesthesia History of tonsillectomy (~1952) Status post hysterectomy (~1986) Surgical procedure planned Family History Brother Age: 63 Sleep apnea Child Age: 54 Osteopenia Grandmother Cancer Mother Hypertension Sister Age: 66 Sleep apnea Migraines Family/Other Diabetes mellitus Father No problems noted. Social History household members: none Smoking Status: Never smoker alcohol intake: never Smoking Status: Never smoker Substance Use Type: does not use Exam Initial Vital Signs Initial Vital Signs: Vital Signs Pulse Rate 115 H 11/13/22 02:53 Pulse Oximetry 89 L 11/13/22 02:53 GENERAL: Alert pleasant 77-year-old female and in no acute distress. HEENT: Head atraumatic,EOMI, pupils reactive, face symmetric, moist mucous membranes CARDIOVASCULAR: Regular rate and rhythm without murmurs, rubs or gallops. RESPIRATORY: Breath sounds equal bilaterally, no wheezes rales or rhonchi. ABDOMEN: Soft, nontender. Normoactive bowel sounds all 4 quadrants. No guarding or rebound. EXTREMITIES: Normal range of motion, no clubbing or edema. Neurovascularly intact NEUROLOGICAL: Alert and oriented x4.Normal gait and speech SKIN: Warm, dry, no laceration, no petechiae, no rashes or lesions. Course Orders Ordered: ED Orders 11/13/22 02:58 XR chest 1V Stat EKG-12 Lead Stat 11/13/22 03:20 Covid-19 + FLU A/B + RSV - PCR Stat 11/13/22 03:37 Complete Blood Count AUTO DIFF Stat Comprehensive Metabolic Panel Stat D Dimer Stat Lactate (Lactic Acid) Stat NT-proBNP (BNP-Adult 18+) Stat Procalcitonin Stat Troponin & CK Cardiac Panel Stat 11/13/22 03:45 Blood Culture Stat 11/13/22 04:06 Urinalysis and Microscopic Stat 11/13/22 04:13 CT angio chest PE protocol Stat Discontinued Medications Acetaminophen (Acetaminophen 325 Mg Tablet) 975 mg PO NOW ONE Stop: 11/13/22 03:21 Last Admin: 11/13/22 03:29 Dose: 975 mg Documented By: KAHLIL Dexamethasone (Dexamethasone 10 Mg/Ml Vial) 6 mg IV NOW ONE Stop: 11/13/22 04:14 Last Admin: 11/13/22 04:38 Dose: 6 mg Documented By: KAHLIL Sodium Chloride (Normal Saline 0.9%) 1,000 mls @ 1,000 mls/hr IV BOLUS ONE Stop: 11/13/22 04:19 Last Infusion: 11/13/22 04:41 Dose: 1,000 mls/hr Documented By: Admin: 11/13/22 03:30 Dose: 1,000 mls/hr Documented By: KAHLIL Remdesivir 200 mg/ Sodium (Chloride) 250 mls @ 250 mls/hr IV NOW ONE Stop: 11/13/22 05:12 Last Infusion: 11/13/22 05:40 Dose: 0 mls/hr Documented By: Admin: 11/13/22 04:39 Dose: 250 mls/hr Documented By: KAHLIL Vital Signs Vital signs: Vital Signs - 8 hr 11/13/22 02:58 11/13/22 02:53 11/13/22 02:54 Temperature 100.3 F H Pulse Rate 116 H 115 H Respiratory Rate 24 Blood Pressure 176/77 H 176/77 H Pulse Oximetry 90 L 89 L Oxygen Delivery Method Room Air Oxygen Flow Rate 11/13/22 02:54 11/13/22 03:00 11/13/22 03:00 Temperature 100.3 F H Pulse Rate 116 H 113 H Respiratory Rate 28 H Blood Pressure 168/74 H Pulse Oximetry 90 L 95 Oxygen Delivery Method Nasal Cannula Oxygen Flow Rate 2 11/13/22 03:29 11/13/22 03:30 11/13/22 03:30 Temperature 100.3 F H Pulse Rate 111 H Respiratory Rate 30 H Blood Pressure 172/77 H Pulse Oximetry 96 Oxygen Delivery Method Oxygen Flow Rate 11/13/22 04:00 11/13/22 04:01 11/13/22 04:04 Temperature 100 F H Pulse Rate 114 H Respiratory Rate Blood Pressure 166/72 H Pulse Oximetry 85 L Oxygen Delivery Method Oxygen Flow Rate 11/13/22 04:04 11/13/22 04:30 11/13/22 04:31 Temperature Pulse Rate 108 H 102 H Respiratory Rate 19 24 Blood Pressure 153/65 H Pulse Oximetry 96 94 Oxygen Delivery Method Oxygen Flow Rate 11/13/22 04:31 11/13/22 05:00 Temperature Pulse Rate 101 H 101 H Respiratory Rate 24 19 Blood Pressure Pulse Oximetry 94 Oxygen Delivery Method Oxygen Flow Rate MDM - Weakness Lab Data 11/13/22 03:37 11/13/22 03:37 Labs: Lab Results 11/13/22 11/13/22 11/13/22 Range/Units 03:20 03:37 03:37 WBC 13.8 H (4.5-11.0) X10^3/uL RBC 3.41 L (4.0-5.2) X10^6/uL Hgb 10.8 L (12.0-16.0) g/dL Hct 32.1 L (36-46) % MCV 94.2 (80-100) fL MCH 31.8 (26-34) PG MCHC 33.7 (30-36) % RDW 15.0 H (11.6-14.8) % Plt Count 243 (150-400) X10^3/uL Neut % (Auto) 87.4 H (50-75) % Lymph % (Auto) 4.4 L (25-40) % [place] % (Auto) 5.5 (3-14) % Eos % (Auto) 2.5 (2-4) % Baso % (Auto) 0.2 (0-2) % Neut # (Auto) 62216 H (1350-4631) /uL Lymph # (Auto) 600 L (1351-9528) /uL [place] # (Auto) 800 (0-900) /uL Eos # (Auto) 300 (0-450) /uL Baso # (Auto) 0 (0-100) /uL D-Dimer 1161 H (<500) ng/ml Sodium (137-145) mmol/L Potassium (3.4-5.1) mmol/L Chloride (98-107) mmol/L Carbon Dioxide (22-32) mmol/L BUN (7-17) mg/dL Creatinine (0.52-1.04) mg/dL Estimated GFR (>60) mL/min BUN/Creatinine Ratio (6-22) Glucose (80-110) mg/dL Lactate (0.7-2.1) mmol/L Calcium (8.4-10.2) mg/dL Total Bilirubin (0.2-1.3) mg/dL AST (14-36) IU/L ALT (<35) IU/L Alkaline Phosphatase (38-126) U/L Total Creatine Kinase (30-135) U/L Troponin I (0.01-0.034) ng/mL NT-Pro-B Natriuret Pep (<450) pg/mL Total Protein (6.3-8.2) g/dL Albumin (3.5-5.0) g/dL Globulin (1.7-4.1) g/dL Albumin/Globulin Ratio (1.0-2.8) Procalcitonin (<0.5) ng/mL Urine Color Urine Appearance Urine pH (4.5-8.0) Ur Specific [place] (1.000-1.035) Urine Protein (Negative) Urine Glucose (UA) (Negative) g/dL Urine Ketones (NEGATIVE) Urine Occult Blood (Negative) Urine Nitrate (Negative) Urine Bilirubin (NEGATIVE) Urine Urobilinogen (0.2) E.U./dL Ur Leukocyte Esterase (NEGATIVE) Urine RBC (0-5/HPF) Urine WBC (0-5/HPF) Ur Squamous Epith Cells (0-5/HPF) Ur Transition Epith Cell (0-5/HPF) Ur Renal Epithelial Cell (0-1/HPF) Urine Bacteria (None) Ur Culture Indicated? SARS-CoV-2 (PCR) Positive H (Negative) Influenza A (RT-PCR) Flu a negative (NEGATIVE) Influenza B (RT-PCR) Flu b negative (NEGATIVE) RSV (PCR) Negative (Negative) 11/13/22 11/13/22 11/13/22 Range/Units 03:37 03:37 04:06 WBC (4.5-11.0) X10^3/uL RBC (4.0-5.2) X10^6/uL Hgb (12.0-16.0) g/dL Hct (36-46) % MCV (80-100) fL MCH (26-34) PG MCHC (30-36) % RDW (11.6-14.8) % Plt Count (150-400) X10^3/uL Neut % (Auto) (50-75) % Lymph % (Auto) (25-40) % [place] % (Auto) (3-14) % Eos % (Auto) (2-4) % Baso % (Auto) (0-2) % Neut # (Auto) (6544-6625) /uL Lymph # (Auto) (7028-2696) /uL [place] # (Auto) (0-900) /uL Eos # (Auto) (0-450) /uL Baso # (Auto) (0-100) /uL D-Dimer (<500) ng/ml Sodium 135 L (137-145) mmol/L Potassium 3.9 (3.4-5.1) mmol/L Chloride 97 L (98-107) mmol/L Carbon Dioxide 28 (22-32) mmol/L BUN 34 H (7-17) mg/dL Creatinine 1.31 H (0.52-1.04) mg/dL Estimated GFR 42 L (>60) mL/min BUN/Creatinine Ratio 26.0 H (6-22) Glucose 326 H (80-110) mg/dL Lactate 1.4 (0.7-2.1) mmol/L Calcium 10.4 H (8.4-10.2) mg/dL Total Bilirubin 0.4 (0.2-1.3) mg/dL AST 29 (14-36) IU/L ALT 24 (<35) IU/L Alkaline Phosphatase 39 (38-126) U/L Total Creatine Kinase 191 H (30-135) U/L Troponin I < 0.012 (0.01-0.034) ng/mL NT-Pro-B Natriuret Pep 606 H (<450) pg/mL Total Protein 7.4 (6.3-8.2) g/dL Albumin 4.4 (3.5-5.0) g/dL Globulin 3.0 (1.7-4.1) g/dL Albumin/Globulin Ratio 1.5 (1.0-2.8) Procalcitonin 0.42 (<0.5) ng/mL Urine Color Yellow Urine Appearance Clear Urine pH 5.5 (4.5-8.0) Ur Specific [place] 1.010 (1.000-1.035) Urine Protein 1+ H (Negative) Urine Glucose (UA) 1+ H (Negative) g/dL Urine Ketones Trace H (NEGATIVE) Urine Occult Blood Negative (Negative) Urine Nitrate Negative (Negative) Urine Bilirubin Negative (NEGATIVE) Urine Urobilinogen 0.2 (0.2) E.U./dL Ur Leukocyte Esterase Negative (NEGATIVE) Urine RBC None seen (0-5/HPF) Urine WBC 1-5/hpf (0-5/HPF) Ur Squamous Epith Cells 0-1 /hpf (0-5/HPF) Ur Transition Epith Cell 0-1/hpf (0-5/HPF) Ur Renal Epithelial Cell 0-1/hpf (0-1/HPF) Urine Bacteria None seen (None) Ur Culture Indicated? Cult not indicated SARS-CoV-2 (PCR) (Negative) Influenza A (RT-PCR) (NEGATIVE) Influenza B (RT-PCR) (NEGATIVE) RSV (PCR) (Negative) Imaging Data Chest x-ray: Radiologist Impression: Preliminary report: There is no active disease in chest. Prominence and slightly increased density in the right hilum which may be related to projectional factors and portable technique CT scan - chest: Radiologist Impression: Preliminary report: No evidence of pulmonary embolism. Mild bibasilar dependent consolidation likely secondary to subsegmental atelectasis. Increased thickening of subpleural interstitial which maybe secondary to fibrotic changes versus mild interstitial edema ECG Data Interpretation: Sinus rate 113 ME interval 164 QRS [address] changes MDM Narrative Medical decision making narrative: Patient 77-year-old female history of diabetes, recent UTI on Macrobid presents today with increasing weakness and fall. She is found to be 90% on room air when she arrives and febrile high concern for COVID. She is COVID positive. She was placed on 1-2 L of oxygen. He is given IV fluids remdesivir and dexamethasone. No evidence of UTI today. Labs have been reviewed mild leukocytosis of 13.8, creatinine is 1.31 previous is 1.2 glucose is 326 no evidence of DKA negative troponin D-dimer 1161 CT angio chest does not show any evidence of pulmonary embolism Patient remains hemodynamically stable here and comfortable. Dr. Ramsey updated patient's symptoms test results and accepts patient Discharge Plan Departure Prescriptions: No Action magnesium 200 MG tablet 250 mg PO DAILY Qty: 0 cholecalciferol (vitamin D3) [Vitamin D3] 1,000 UNIT tablet 5,000 u Q DAY Qty: 0 glipizide 10 mg tablet extended release 24hr 10 mg PO DAILY Qty: 90 1RF furosemide 40 mg tablet 40 mg PO QAM Qty: 90 3RF metoprolol tartrate [Lopressor] 50 mg tablet 50 mg PO BID Qty: 180 3RF omeprazole 20 mg capsule,delayed release(DR/EC) 20 mg PO DAILY Qty: 90 3RF atorvastatin 40 mg tablet 40 mg PO HS Qty: 90 3RF gemfibrozil 600 mg tablet 600 mg PO BIDAC Qty: 180 3RF losartan 50 mg tablet 50 mg PO BID Qty: 180 3RF nitrofurantoin macrocrystal 100 mg capsule 100 mg PO BID Qty: 14 0RF Rx Instructions: must administer with a meal/food cinnamon bark 500 mg capsule 500 mg PO TID Rx Instructions: Takes 1,000mg 3x a day metformin [Glucophage] 500 mg tablet 500 mg PO BIDCC Lantus Solostar U-100 Insulin 100 unit/mL (3 mL) insulin pen 40 unit SUBCUT QPM Rx Instructions: took 20 units (half normal dose) Trulicity 0.75 mg/0.5 mL pen injector 0.75 mg SUBCUT QWEEK Patient Comments: Unkown dose (DME) Disabled Parking See Rx Instructions .ROUTE .MEDSUPPLY Qty: 1 0RF Rx Instructions: Patient qualifies for disabled parking as per the attached form. fluticasone propionate 50 mcg/actuation spray,suspension 2 spray intranasal BEDTIME Qty: 16 0RF Rx Instructions: administer into each nostril multivitamin with minerals [Hair,Skin and Nails] Tablet 1 tab PO DAILY omega-3 fatty acids 500 mg capsule 500 mg PO DAILY Turmeric Curcumin 1 tab PO DAILY Rx Instructions: 500 MG Biotin 5,000 mcg PO DAILY Glucose: Test Strips strip 1 str Q DAY latanoprost [Xalatan] 0.005 % Drops 1 drops EYE-BOTH BEDTIME Qty: 5 0RF aspirin 325 mg Tablet 325 mg PO DAILY (DME) Resmed S9 VPAP Qty: 1 Dose Instruction: As directed Patient Comments: Pressure: IPAP 20 EPAP 10 DME: [facility] Rx Instructions: As directed Referrals: Ivan Recinos MD [Primary Care Provider] - Admit Date/Time: 11/13/22 06:44
[2022-11-13] MEDS: ACETAMINOPHEN 325 MG TABLET 975 MG PO (03:29)
[2022-11-13] MEDS: SODIUM CHLORIDE 0.9% 1,000 ML 1000 ML IV (03:30)
[2022-11-13 04:02] LABS: Influenza A - CEPHEID Flu A NEGATIVE (NEGATIVE); Influenza B - CEPHEID Flu B NEGATIVE (NEGATIVE); Respiratory Syncytial Virus Negative (Negative)
[2022-11-13 04:05] LABS: COVID-19 CEPHEID 4-PLEX PCR POSITIVE (Negative)
[2022-11-13 04:06] LABS: D Dimer 1161 ng/ml (<500)
[2022-11-13 04:08] LABS: Lactate (Lactic Acid) 1.4 mmol/L (0.7-2.1)
[2022-11-13 04:10] LABS: Add Manual Diff / Slide Review NO; Basophils Absolute Auto 0 /uL (0-100); Basophils Percent Auto 0.2 % (0-2); Eosinophils Absolute Auto 300 /uL (0-450); Eosinophils Percent Auto 2.5 % (2-4); Hematocrit 32.1 % (36-46); Hemoglobin 10.8 g/dL (12.0-16.0); Lymphocytes Absolute Auto 600 /uL (1100-4500); Lymphocytes Percent Auto 4.4 % (25-40); Mean Corpuscular HGB Conc 33.7 % (30-36); Mean Corpuscular Hemoglobin 31.8 PG (26-34); Mean Corpuscular Volume 94.2 fL (80-100); Monocytes Absolute Auto 800 /uL (0-900); Monocytes Percent Auto 5.5 % (3-14); Neutrophils Absolute Auto 12000 /uL (1500-7000); Neutrophils Percent Auto 87.4 % (50-75); Platelet Count 243 X10^3/uL (150-400); Red Blood Cell Count 3.41 X10^6/uL (4.0-5.2); White Blood Cell Count 13.8 X10^3/uL (4.5-11.0)
--- NOTE | 2022-11-13 04:13 | DI.CT.S_ITS ---
PROCEDURE: CT ANGIO CHEST PE PROTOCOL INDICATIONS: Hypoxia; Covid positive; elevated D-dimer. TECHNIQUE: After the administration of intravenous contrast, 2 mm thick sections acquired from the pulmonary apices to the posterior costophrenic angles. 3-dimensional maximum intensity projection (MIP) coronal and sagittal reformats were then acquired through the thorax. For radiation dose reduction, the following was used: automated exposure control, adjustment of mA and/or kV according to patient size. COMPARISON: None. FINDINGS: Image quality: Good Lungs and pleura: Mild diffuse septal thickening. Bibasilar opacities may represent atelectasis or early airspace disease. Bronchial wall thickening in the lower lobes. Small nodularity also seen in the lungs, possibly infectious/inflammatory, for example in the right 5/147. Mediastinum, heart, and esophagus: Mildly dilated pulmonary vascular system suggestive of high pulmonary pressures chronically. No acute pulmonary embolism. Borderline cardiomegaly. There are coronary calcifications. No hiatal hernia. Borderline enlarged mediastinal hilar lymph nodes are present. Chest wall and thyroid: Unremarkable Upper abdomen: No gross abnormality on these arterial phase images. Bones: There are degenerative changes. No acute or suspicious finding. IMPRESSION: No acute pulmonary embolism. Bibasilar opacities likely representing a combination of airspace disease and atelectasis. There is also bronchial wall thickening. Septal thickening and scattered ill-defined pulmonary nodularity, likely superimposed edema. Consider future imaging surveillance to assess for resolution. No significant discrepancy from the preliminary report. Additional findings above. Dictated by: Ron Carmichael M.D. on 11/13/2022 at 8:32 Approved by: Ron Carmichael M.D. on 11/13/2022 at 8:37
[2022-11-13 04:28] LABS: Alanine Aminotransferase 24 IU/L (<35); Albumin 4.4 g/dL (3.5-5.0); Albumin Globulin Ratio 1.5 (1.0-2.8); Alkaline Phosphatase 39 U/L (38-126); Aspartate Aminotransferase 29 IU/L (14-36); Bilirubin Total 0.4 mg/dL (0.2-1.3); Blood Urea Nitrogen 34 mg/dL (7-17); Calcium 10.4 mg/dL (8.4-10.2); Carbon Dioxide 28 mmol/L (22-32); Chloride 97 mmol/L (98-107); Creatine Kinase 191 U/L (30-135); Estimated Glomerular Filt Rate 42 mL/min (>60); Glucose 326 mg/dL (80-110); HEMOLYSIS < 15 (0-50); Potassium 3.9 mmol/L (3.4-5.1); Sodium 135 mmol/L (137-145); Total Protein 7.4 g/dL (6.3-8.2)
[2022-11-13] MEDS: DEXAMETHASONE 10 MG/ML VIAL 6 MG IV (04:38)
[2022-11-13 04:39] LABS: NT-proBNP (BNP-Adult 18+) 606 pg/mL (<450); Troponin I < 0.012 ng/mL (0.01-0.034)
[2022-11-13] MEDS: REMDESIVIR 200 MG in SODIUM CHLORIDE 0.9% 250 ML 250 MG IV (04:39)
[2022-11-13 04:44] LABS: Procalcitonin 0.42 ng/mL (<0.5)
[2022-11-13 06:03] LABS: Appearance Urine UA CLEAR; Bilirubin Urine UA NEGATIVE (NEGATIVE); Color Urine UA YELLOW; Glucose Urine UA 1+ g/dL (Negative); Ketones Urine UA TRACE (NEGATIVE); Leukocyte Esterase Urine UA NEGATIVE (NEGATIVE); Nitrite Urine UA NEGATIVE (Negative); Occult Blood Urine UA NEGATIVE (Negative); Protein Urine UA 1+ (Negative); Urobilinogen Urine UA 0.2 E.U./dL (0.2)
[2022-11-13 06:05] LABS: pH Urine UA 5.5 (4.5-8.0)
[2022-11-13 06:36] LABS: Bacteria Urine None Seen; Culture Indicated Urine Cult Not Indicated; RBC Urine None Seen (0-5/HPF); Renal Epithelial Cells Urine 0-1/HPF (0-1/HPF); Squamous Epithelial Cell Urine 0-1 /HPF (0-5/HPF); Transitional Epi Cells Urine 0-1/HPF (0-5/HPF); WBC Urine 1-5/HPF (0-5/HPF)
--- NOTE | 2022-11-13 11:00 | PM.HP.1 ---
History of Present Illness History of Present Illness Date Patient Seen: 11/13/22 Time Patient Seen: 11:00 Date of Onset of Symptoms: 11/13/22 Chief complaint: UTI/Ecoli-weak. Narrative: Patient is a 77-year-old patient of Dr. Recinos who I am seeing in [facility]. Patient has history asthma, chronic renal failure type 2 diabetes but had been in her usual state of health until the 14th of this month. Apparently she was just not feeling well and was treated for AE coli UTI. She never feel like she recovered. Apparently she developed a cough and was seen in Dr. Recinos's clinic but does not appear ill. Look good and no definitive findings on exam. Otherwise there was no other significant change. She slowly really not felt so much as a cough as she is getting weaker. Into the point where she woke up yesterday went to the bathroom and then tripped and fell. Was unable to get up so called 911. It is really the severe weakness has been the issue. She is had no headaches no visual symptoms. No chest pain. Has been feeling short of breath does have a cough. Nonproductive. Otherwise no leg pain. No pain from the fall. Has been feeling weak and was brought to the emergency room. [facility] Medical History Ankle pain (~1953) Asthma (~1958) Behaviorally induced insufficient sleep syndrome Carpal tunnel syndrome (~1997) Cataracts, bilateral (~1999) Chicken pox (~1953) Chlamydia (~1976) Chronic renal failure, stage 3a Diabetes type 2, controlled Endometriosis Essential hypertension (02/04/11) Excessive daytime sleepiness Fibroids Fibromyalgia Foot pain (~1999) Glaucoma (02/04/11) Hearing loss (~1955) History of recurrent ear infection (~1955) Hypercalcemia Insomnia Measles (~1953) Menstrual cycle disorder (~1961) Mixed hyperlipidemia (02/04/11) Morbid obesity with BMI of 40.0-44.9, adult (02/04/11) Morbid obesity with BMI of 45.0-49.9, adult Obstructive sleep apnea syndrome (02/04/11) Peripheral neuropathy (~2015) Rosacea (~1989) Rubella (~1955) Shoulder pain (~2016) Type 2 diabetes mellitus without complication, with long-term current use of insulin (01/10/17) Surgical History Anesthesia History of tonsillectomy (~195) Status post hysterectomy (~1986) Surgical procedure planned Family History Brother Age: 63 Sleep apnea Child Age: 54 Osteopenia Grandmother Cancer Mother Hypertension Sister Age: 66 Sleep apnea Migraines Family/Other Diabetes mellitus Father No problems noted. Social History household members: none Smoking Status: Never smoker alcohol intake: never Meds Home Medications and Allergies Home Medications Medication Instructions Recorded Confirmed Type magnesium 200 mg tablet 400 mg PO DAILY ##0 02/21/16 11/13/22 History cholecalciferol (vitamin D3) 25 5,000 u Q DAY ##0 08/12/16 11/13/22 History mcg (1,000 unit) tablet (Vitamin D3) Resmed S9 VPAP #1 ea 08/01/18 11/13/22 History cinnamon bark 500 mg capsule 500 mg PO TID 01/25/19 11/13/22 History metformin 500 mg tablet 500 mg PO BID 01/25/19 11/13/22 History (Glucophage) Turmeric Curcumin 1 tab PO DAILY 10/09/19 11/13/22 History omega-3 fatty acids 500 mg capsule 500 mg PO DAILY 10/09/19 11/13/22 History dulaglutide 0.75 mg/0.5 mL 0.75 mg SUBCUT 2XW 09/09/20 11/13/22 History subcutaneous pen injector (Trulicity) latanoprost 0.005 % eye drops 1 drops EYE-BOTH BEDTIME #5 mL 07/12/21 11/13/22 Rx (Xalatan) Disabled Parking #1 ea 07/27/21 11/13/22 Rx glipizide 10 mg tablet, extended 10 mg PO DAILY #90 tabs 07/27/21 11/13/22 Rx release 24 hr aspirin 325 mg tablet 325 mg PO DAILY 10/12/21 11/13/22 History furosemide 40 mg tablet 40 mg PO QAM #90 tabs 09/13/22 11/13/22 Rx atorvastatin 40 mg tablet 40 mg PO HS #90 tabs 10/11/22 11/13/22 Rx metoprolol tartrate 50 mg tablet 50 mg PO BID #180 tabs 10/11/22 11/13/22 Rx (Lopressor) omeprazole 20 mg capsule,delayed 20 mg PO DAILY #90 caps 10/11/22 11/13/22 Rx release Lantus Solostar U-100 Insulin 50 units SUBCUT DAILY 11/13/22 11/13/22 History acetaminophen 325 mg capsule 650 mg PO Q6HR PRN pain/fever 11/13/22 11/13/22 History biotin 5,000 mcg chewable tablet 5,000 mcg PO BID 11/13/22 11/13/22 History gemfibrozil 600 mg tablet 600 mg PO BID 11/13/22 11/13/22 History losartan 50 mg tablet 50 mg PO BID 11/13/22 11/13/22 History salt moisturizing solution no1 1 spray intranasal BID PRN Dry nose 11/13/22 11/13/22 History Allergies Allergy/AdvReac Type Severity Reaction Status Date / Time lisinopril [LISINOPRIL] AdvReac Intermediate COUGH Verified 11/13/22 09:56 Review of Systems Review of Systems Narrative: See above but otherwise negative Exam Vital Signs (past 8 hours): - 11/13/22 03:29 11/13/22 03:30 11/13/22 03:30 Temperature 100.3 F H Pulse Rate 111 H Respiratory Rate 30 H Blood Pressure 172/77 H Pulse Oximetry 96 Oxygen Delivery Method Oxygen Flow Rate 11/13/22 04:00 11/13/22 04:01 11/13/22 04:04 Temperature 100 F H Pulse Rate 114 H Respiratory Rate Blood Pressure 166/72 H Pulse Oximetry 85 L Oxygen Delivery Method Oxygen Flow Rate 11/13/22 04:04 11/13/22 04:30 11/13/22 04:31 Temperature Pulse Rate 108 H 102 H Respiratory Rate 19 24 Blood Pressure 153/65 H Pulse Oximetry 96 94 Oxygen Delivery Method Oxygen Flow Rate 11/13/22 04:31 11/13/22 05:00 11/13/22 05:30 Temperature Pulse Rate 101 H 101 H 100 H Respiratory Rate 24 19 19 Blood Pressure Pulse Oximetry 94 96 Oxygen Delivery Method Oxygen Flow Rate 11/13/22 06:10 11/13/22 06:10 11/13/22 06:23 Temperature Pulse Rate 98 H Respiratory Rate 29 H Blood Pressure 151/97 H 151/67 H Pulse Oximetry 97 Oxygen Delivery Method Oxygen Flow Rate 11/13/22 06:23 11/13/22 06:30 11/13/22 06:30 Temperature Pulse Rate 97 H 96 H Respiratory Rate 23 23 Blood Pressure 148/65 H Pulse Oximetry 95 91 Oxygen Delivery Method Oxygen Flow Rate 11/13/22 07:00 11/13/22 07:00 11/13/22 07:30 Temperature Pulse Rate 95 H Respiratory Rate 20 Blood Pressure 156/72 H 154/69 H Pulse Oximetry 94 Oxygen Delivery Method Room Air Oxygen Flow Rate 11/13/22 07:30 11/13/22 08:00 11/13/22 08:01 Temperature Pulse Rate 93 H 92 H 94 H Respiratory Rate 20 20 20 Blood Pressure Pulse Oximetry 94 98 97 Oxygen Delivery Method Oxygen Flow Rate 11/13/22 08:01 11/13/22 08:30 11/13/22 08:30 Temperature Pulse Rate 91 H Respiratory Rate 20 Blood Pressure 179/70 H 141/83 H Pulse Oximetry 93 Oxygen Delivery Method Oximask Oxygen Flow Rate 2 Oxygen Delivery Method Oximask Oxygen Flow Rate 2 Narrative Exam Narrative: Alert elderly female mildly fatigued no acute respiratory distress with oxygen on. Mucous membranes moist. Neck supple without adenopathy. Lungs are clear heart is regular rate and rhythm without murmurs clicks rubs or gallops abdomen is benign extremities without edema no calf tenderness. Neuro exam completely normal. Objective Labs 11/13/22 03:37 11/13/22 03:37 Labs: Laboratory Results - last 24 hr 11/13/22 11/13/22 11/13/22 03:20 03:37 03:37 WBC 13.8 H RBC 3.41 L Hgb 10.8 L Hct 32.1 L MCV 94.2 MCH 31.8 MCHC 33.7 RDW 15.0 H Plt Count 243 Neut % (Auto) 87.4 H Lymph % (Auto) 4.4 L [place] % (Auto) 5.5 Eos % (Auto) 2.5 Baso % (Auto) 0.2 Neut # (Auto) 25256 H Lymph # (Auto) 600 L [place] # (Auto) 800 Eos # (Auto) 300 Baso # (Auto) 0 D-Dimer 1161 H Sodium Potassium Chloride Carbon Dioxide BUN Creatinine Estimated GFR BUN/Creatinine Ratio Glucose Lactate Calcium Total Bilirubin AST ALT Alkaline Phosphatase Total Creatine Kinase Troponin I NT-Pro-B Natriuret Pep Total Protein Albumin Globulin Albumin/Globulin Ratio Procalcitonin Urine Color Urine Appearance Urine pH Ur Specific [place] Urine Protein Urine Glucose (UA) Urine Ketones Urine Occult Blood Urine Nitrate Urine Bilirubin Urine Urobilinogen Ur Leukocyte Esterase Urine RBC Urine WBC Ur Squamous Epith Cells Ur Transition Epith Cell Ur Renal Epithelial Cell Urine Bacteria Ur Culture Indicated? SARS-CoV-2 (PCR) Positive H Influenza A (RT-PCR) Flu a negative Influenza B (RT-PCR) Flu b negative RSV (PCR) Negative 11/13/22 11/13/22 11/13/22 03:37 03:37 04:06 WBC RBC Hgb Hct MCV MCH MCHC RDW Plt Count Neut % (Auto) Lymph % (Auto) [place] % (Auto) Eos % (Auto) Baso % (Auto) Neut # (Auto) Lymph # (Auto) [place] # (Auto) Eos # (Auto) Baso # (Auto) D-Dimer Sodium 135 L Potassium 3.9 Chloride 97 L Carbon Dioxide 28 BUN 34 H Creatinine 1.31 H Estimated GFR 42 L BUN/Creatinine Ratio 26.0 H Glucose 326 H Lactate 1.4 Calcium 10.4 H Total Bilirubin 0.4 AST 29 ALT 24 Alkaline Phosphatase 39 Total Creatine Kinase 191 H Troponin I < 0.012 NT-Pro-B Natriuret Pep 606 H Total Protein 7.4 Albumin 4.4 Globulin 3.0 Albumin/Globulin Ratio 1.5 Procalcitonin 0.42 Urine Color Yellow Urine Appearance Clear Urine pH 5.5 Ur Specific [place] 1.010 Urine Protein 1+ H Urine Glucose (UA) 1+ H Urine Ketones Trace H Urine Occult Blood Negative Urine Nitrate Negative Urine Bilirubin Negative Urine Urobilinogen 0.2 Ur Leukocyte Esterase Negative Urine RBC None seen Urine WBC 1-5/hpf Ur Squamous Epith Cells 0-1 /hpf Ur Transition Epith Cell 0-1/hpf Ur Renal Epithelial Cell 0-1/hpf Urine Bacteria None seen Ur Culture Indicated? Cult not indicated SARS-CoV-2 (PCR) Influenza A (RT-PCR) Influenza B (RT-PCR) RSV (PCR) Assessment & Plan Assessment & Plan narrative: Severe COVID as marked by respiratory failure and required for oxygen. Has been given 1st round of rinses does appear and dexamethasone. Will continue. Oxygen as needed. Will see how things go. Do not think she needs full DVT treatment but will follow. Will just use usual DVT therapy. Otherwise no change. Patient will be supported and followed. Respiratory failure. Probably secondary mostly to her COVID. CT scan reviewed. Not found to have anything definitive. Does not appear to be have a bacterial infection but will follow. I do not think we have to treat at this time. Will follow over the next 24 hours and see how she does. History of UTI. Urine was negative. Will follow culture and see how she does. Severe weakness. Probably secondary to COVID. Will continue to see how she does and follow from there. Type 2 diabetes. Usual meds suffer glyburide and cover with sliding scale. Essential hypertension. Blood pressure stable. Will hold all but metoprolol for now. Just as we needed. Re-evaluate after that. Obesity. Will follow. Does impact potential respiratory issues but will have to see how things go. History of chronic renal failure. Stable. Recheck a.m.. Will see how things go. DVT prophylaxis. Will place on Lovenox. GI prophylaxis will keep on usual meds done not need increase in meds. Code status. full Disposition. Patient will probably be here for the next 48 hours I suspect but will have to see how things go. Whether or not she resolves her hypoxia. His in his that happens we probably can go home. 85 minutes spent with the patient getting ready dizzy patient removing all required equipment chart review discussion with the ER doc orders dictation
[2022-11-13] MEDS: FUROSEMIDE 40 MG TABLET PO (14:40)
[2022-11-13 18:57] LABS: MRSA (Nasal) PCR Not Detected (Not Detect)
[2022-11-13] MEDS: INSULIN GLARGINE 100 UNIT/ML 3ML PEN 50 UNIT SUBCUT (20:53)
[2022-11-14] VITALS: BP 127/61; PULSE 52; RESP 19; TEMP 36.8; O2SAT 95
[2022-11-14] MEDS: PANTOPRAZOLE DR 20 MG TABLET PO (06:09)
[2022-11-14 08:00] VITALS: BP 134/62; PULSE 72; RESP 18; TEMP 35.8; O2SAT 97
[2022-11-14 08:52] LABS: Add Manual Diff / Slide Review NO; Basophils Absolute Auto 0 /uL (0-100); Basophils Percent Auto 0.5 % (0-2); Eosinophils Absolute Auto 900 /uL (0-450); Hematocrit 30.7 % (36-46); Hemoglobin 10.6 g/dL (12.0-16.0); Lymphocytes Absolute Auto 3400 /uL (1100-4500); Lymphocytes Percent Auto 32.7 % (25-40); Mean Corpuscular HGB Conc 34.7 % (30-36); Mean Corpuscular Hemoglobin 32.5 PG (26-34); Mean Corpuscular Volume 93.8 fL (80-100); Monocytes Absolute Auto 1000 /uL (0-900); Monocytes Percent Auto 9.7 % (3-14); Neutrophils Absolute Auto 5000 /uL (1500-7000); Neutrophils Percent Auto 48.1 % (50-75); Platelet Count 230 X10^3/uL (150-400); Red Blood Cell Count 3.27 X10^6/uL (4.0-5.2); Red Cell Distribution Width 14.7 % (11.6-14.8); White Blood Cell Count 10.4 X10^3/uL (4.5-11.0)
[2022-11-14 09:04] LABS: Alanine Aminotransferase 21 IU/L (<35); Albumin 3.8 g/dL (3.5-5.0); Albumin Globulin Ratio 1.2 (1.0-2.8); Alkaline Phosphatase 33 U/L (38-126); Aspartate Aminotransferase 25 IU/L (14-36); BUN Creatinine Ratio 32.7 (6-22); Bilirubin Total 0.3 mg/dL (0.2-1.3); Blood Urea Nitrogen 35 mg/dL (7-17); Calcium 10.2 mg/dL (8.4-10.2); Carbon Dioxide 30 mmol/L (22-32); Chloride 102 mmol/L (98-107); Estimated Glomerular Filt Rate 54 mL/min (>60); Globulin 3.1 g/dL (1.7-4.1); Glucose 109 mg/dL (80-110); HEMOLYSIS < 15 (0-50); Potassium 3.9 mmol/L (3.4-5.1); Sodium 139 mmol/L (137-145); Total Protein 6.9 g/dL (6.3-8.2)
--- NOTE | 2022-11-14 11:13 | CM.DANOTE ---
DCP Assessment Note: Patient is a 77yo f here following SOB and a GLF from COVID. PCP Mathis Payer Medicare and Harpreet CAMPO reviewed EMR. Per Reiger/nursing staff, patient doing better likely d/c today. D/c internet media planner Shaylee entered room to deliver [place] paperwork and did a d/c assessment while in there in order to limit potential COVID exposure. Shaylee reported from patient that she lives alone in [place] but sister is nearby and helpful if needed. Patient does not drive but sister transports as needed. Sister will drive her home. Patient has a cane to use if needed. Plan: d/c home when medically stable, likely today, with sister assistance. No other needs identified at this time. CM team will continue to follow as needed. JAHAIRA Alba Discharge Planning/Care Management CM Discharge Assessment Start: 11/14/22 11:11 Freq: Status: Active Protocol: Document 11/14/22 11:11 (Rec: 11/14/22 11:13 [id number]) Discharge Planning Assessment Assigned Auto Bumper Straightener JAHAIRA Pinzon DPOA/Assigned Designee Name Cee () Contact Information [phone] Advance Directives? Yes Advance Directives on File Yes: on file History Provided By Patient,Medical Record Prior Living Arrangements House Household Members none Type of transporation used prior to Relies on Others admit Comment Sister drives her Independent with ADL's Yes Is patient alert and oriented? Yes DME Already Rented / Owned Cane Discharge Plan Home Transportation Arrangement Sister Whiteboard Updated in Patient Room with No name and ext. # of Auto Bumper Straightener Comment Whiteboard not updated due to COVID pos Review Status In Process Next Review Type Continued Stay Review
--- NOTE | 2022-11-14 11:16 | PM.DS.1 ---
History of Present Illness History of Present Illness Date Patient Seen: 11/14/22 Time Patient Seen: 11:17 Date of Onset of Symptoms: 11/11/22 Chief complaint: UTI/Ecoli-weak. Narrative: Patient is a 77-year-old patient of Dr. Recinos who I am seeing in [facility]. Patient has history asthma, chronic renal failure type 2 diabetes but had been in her usual state of health until the 14th of this month. Apparently she was just not feeling well and was treated for AE coli UTI. She never feel like she recovered. Apparently she developed a cough and was seen in Dr. Recinos's clinic but does not appear ill. Look good and no definitive findings on exam. Otherwise there was no other significant change. She slowly really not felt so much as a cough as she is getting weaker. Into the point where she woke up yesterday went to the bathroom and then tripped and fell. Was unable to get up so called 911. It is really the severe weakness has been the issue. She is had no headaches no visual symptoms. No chest pain. Has been feeling short of breath does have a cough. Nonproductive. Otherwise no leg pain. No pain from the fall. Has been feeling weak and was brought to the emergency room. Discharge Providers Provider Date of admission: 11/13/22 06:44 Discharge Date: 11/14/22 Primary care physician: Ivan Recinos MD Discharge provider: Guzman Ramsey MD Summary Hospital Course Discharge Diagnosis: Severe COVID Respiratory failure History of UTI Severe weakness Type 2 diabetes Essential hypertension Obesity Hospital Course: Severe COVID. Patient was placed on remdesivir and dexamethasone 1st dose in the emergency room. Oxygen was applied. [place] quite a bit better through the night. And oxygen was discontinued she was ambulating around the room without desaturation feeling well. Still had some heaviness in her chest but was feeling significantly better. And will be discharged home and followed. No treatment long-term or change. Respiratory failure. Oxygen was applied during emergency room and continued through most of the night was discontinued as she is did better and she maintained oxygen saturation in his acceptable ranges off of O2. This was all secondary to COVID infection and no evidence of pneumonia. No antibiotics were applied. Will be followed. History of UTI. Urine was negative and I do not think this has anything to do with her current admission. She was followed and will be followed as outpatient with history of recurrent infections but no treatment at this time. Severe weakness. Secondary to COVID. Much improved. Ambulating around room. Appears to be much more stable. No other changes. Type 2 diabetes. Controlled through most of the time. Will go home on her usual meds. Essential hypertension. Blood pressure overall was not impacted. Home on usual meds. Obesity. Stable. Probably did impact significantly her ability to breathe but at this point seems to be doing well. As per her primary care physician. Greater than 35 minutes spent with patient dictation and orders Exam Vital Signs (past 8 hours): - 11/14/22 07:00 11/14/22 08:00 Temperature 96.4 F L Pulse Rate 72 Respiratory Rate 18 Blood Pressure 134/62 Pulse Oximetry 97 Oxygen Delivery Method Room Air Oxygen Flow Rate 0 Oxygen Delivery Method Room Air Oxygen Flow Rate 0 Narrative Exam Narrative: Alert female much less fatigued in no acute distress Lungs are clear heart is regular rate and rhythm abdomen is benign extremities normal Objective Labs 11/14/22 08:25 11/14/22 08:25 Labs: Laboratory Results - last 24 hr 11/13/22 11/14/22 11/14/22 17:28 08:25 08:25 WBC 10.4 RBC 3.27 L Hgb 10.6 L Hct 30.7 L MCV 93.8 MCH 32.5 MCHC 34.7 RDW 14.7 Plt Count 230 Neut % (Auto) 48.1 L D Lymph % (Auto) 32.7 D [place] % (Auto) 9.7 Eos % (Auto) 9.0 H Baso % (Auto) 0.5 Neut # (Auto) 5000 Lymph # (Auto) 3400 [place] # (Auto) 1000 H Eos # (Auto) 900 H Baso # (Auto) 0 Sodium 139 Potassium 3.9 Chloride 102 Carbon Dioxide 30 BUN 35 H Creatinine 1.07 H Estimated GFR 54 L BUN/Creatinine Ratio 32.7 H Glucose 109 D Calcium 10.2 Total Bilirubin 0.3 AST 25 ALT 21 Alkaline Phosphatase 33 L Total Protein 6.9 Albumin 3.8 Globulin 3.1 Albumin/Globulin Ratio 1.2 Nasal Screen MRSA (PCR) Not detected [facility] Medical History Ankle pain (~1953) Asthma (~1958) Behaviorally induced insufficient sleep syndrome Carpal tunnel syndrome (~1997) Cataracts, bilateral (~1999) Chicken pox (~1953) Chlamydia (~1976) Chronic renal failure, stage 3a Diabetes type 2, controlled Endometriosis Essential hypertension (02/04/11) Excessive daytime sleepiness Fibroids Fibromyalgia Foot pain (~1999) Glaucoma (02/04/11) Hearing loss (~1955) History of recurrent ear infection (~1955) Hypercalcemia Insomnia Measles (~1953) Menstrual cycle disorder (~1961) Mixed hyperlipidemia (02/04/11) Morbid obesity with BMI of 40.0-44.9, adult (02/04/11) Morbid obesity with BMI of 45.0-49.9, adult Obstructive sleep apnea syndrome (02/04/11) Peripheral neuropathy (~2015) Rosacea (~1989) Rubella (~1955) Shoulder pain (~2016) Type 2 diabetes mellitus without complication, with long-term current use of insulin (01/10/17) Surgical History Anesthesia History of tonsillectomy (~1952) Status post hysterectomy (~1986) Surgical procedure planned Family History Brother Age: 63 Sleep apnea Child Age: 54 Osteopenia Grandmother Cancer Mother Hypertension Sister Age: 66 Sleep apnea Migraines Family/Other Diabetes mellitus Father No problems noted. Social History household members: none Smoking Status: Never smoker alcohol intake: never Discharge Assessment & Plan Assessment and Plan Assessment: Improved Plan of Treatment: Discharge home Discharge Plan Discharge Plan Patient Disposition: Home Discharge orders & Medications Prescriptions: Continued magnesium 200 MG tablet 400 mg PO DAILY Qty: 0 Rx Instructions: in the morning cholecalciferol (vitamin D3) [Vitamin D3] 1,000 UNIT tablet 5,000 u Q DAY Qty: 0 Rx Instructions: in the morning glipizide 10 mg tablet extended release 24hr 10 mg PO DAILY Qty: 90 1RF Rx Instructions: in the morning furosemide 40 mg tablet 40 mg PO QAM Qty: 90 3RF Rx Instructions: in the morning metoprolol tartrate [Lopressor] 50 mg tablet 50 mg PO BID Qty: 180 3RF omeprazole 20 mg capsule,delayed release(DR/EC) 20 mg PO DAILY Qty: 90 3RF Rx Instructions: in morning atorvastatin 40 mg tablet 40 mg PO HS Qty: 90 3RF Rx Instructions: takes at bedtime cinnamon bark 500 mg capsule 500 mg PO TID Rx Instructions: Takes 1,000mg 3x a day metformin [Glucophage] 500 mg tablet 500 mg PO BID Trulicity 0.75 mg/0.5 mL pen injector 0.75 mg SUBCUT 2XW Patient Comments: Unkown dose Rx Instructions: takes per week (DME) Disabled Parking See Rx Instructions .ROUTE .MEDSUPPLY Qty: 1 0RF Rx Instructions: Patient qualifies for disabled parking as per the attached form. omega-3 fatty acids 500 mg capsule 500 mg PO DAILY Rx Instructions: at bedtime Turmeric Curcumin 1 tab PO DAILY Rx Instructions: 500 MG at bedtime latanoprost [Xalatan] 0.005 % Drops 1 drops EYE-BOTH BEDTIME Qty: 5 0RF aspirin 325 mg Tablet 325 mg PO DAILY Rx Instructions: takes at bedtime losartan 50 mg tablet 50 mg PO BID gemfibrozil 600 mg tablet 600 mg PO BID acetaminophen 325 mg Capsule 650 mg PO Q6HR MDD 4000 PRN (Reason: pain/fever) Lantus Solostar U-100 Insulin 50 units SUBCUT DAILY salt moisturizing solution no1 Mist 1 spray INTRANASAL BID PRN (Reason: Dry nose) biotin 5,000 mcg Tablet,Chewable 5,000 mcg PO BID (DME) Resmed S9 VPAP Qty: 1 Dose Instruction: As directed Patient Comments: Pressure: IPAP 20 EPAP 10 DME: [facility] Rx Instructions: As directed Follow up/Referrals: Ivan Recinos MD [Primary Care Provider] - 2 Weeks (Call tomorrow for appointment) Discharge Health Status Multidrug resistant organism: No MDRO Diet/Activity/Treatments Diet: Diet as Tolerated Activity: As tolerate. Skin/Wound/Dressing Care Report to your healthcare provider any signs of infection, such as:: chills, fever, night sweats and increased pain Visit Report/Discharge Packet Stand Alone Forms: Patient Portal/API, Stroke Signs & Symptoms Discharge Data Primary Care Provider: Ivan Recinos Quality VTE Deep Vein Thrombosis/Pulmonary Embolism Present on Admission: No
--- NOTE | 2022-11-14 11:30 | PC.NURSE ---
Patient declined morning medications due to concerns of how much money she is charged.
== END 2022-11-14 15:20 | disposition home or self-care (01) ==
LOC: ED 04:38 → AC 09:56 → ICU 13:21 → AC 11-15 06:16
PROVIDERS: Admitting Provider Family Medicine; Emergency Provider Emergency Medicine; PCP Internal Medicine; Referring Provider Emergency Medicine; Visit Provider Family Medicine
DX: U07.1 COVID-19 (principal); J96.90 Respiratory failure, unspecified, unspecified whether with hypoxia or hypercapnia; W01.0XXA Fall on same level from slipping, tripping and stumbling without subsequent striking against object, initial encounter; Y92.009 Unspecified place in unspecified non-institutional (private) residence as the place of occurrence of the external cause; Z79.4 Long term (current) use of insulin; E66.9 Obesity, unspecified; Z79.84 Long term (current) use of oral hypoglycemic drugs; Z68.42 Body mass index [BMI] 45.0-49.9, adult; E11.22 Type 2 diabetes mellitus with diabetic chronic kidney disease; I12.9 Hypertensive chronic kidney disease with stage 1 through stage 4 chronic kidney disease, or unspecified chronic kidney disease; N18.9 Chronic kidney disease, unspecified
CPT/HCPCS: 0241U; 36415; 71045; 71275; 80053; 81001; 82550; 82962; 83605; 83880; 84145; 84484; 85025; 85379; 87040; 87797; 93005; 96365; 96372; 96375; 99285; G0378; J1100; Q9967

== ENCOUNTER → 2022-12-07 09:05 | Outpatient (CLI) | payer MEDICARE, OTHER, SELFPAY ==
[2022-11-13 14:20] VITALS: BMI 45.6
[2022-12-07 11:01] LABS: HEMOLYSIS < 15 (0-50); Iron 118 ug/dL (37-170)
[2022-12-07 11:11] LABS: Percent Iron Saturation 23 % (15-50); Total Iron Binding Capacity 508 ug/dL (265-497); Transferrin 423 mg/dL (206-381)
[2022-12-07 11:37] LABS: Ferritin 12 ng/mL (11-264)
== END ==
PROVIDERS: PCP Internal Medicine; Referring Provider Internal Medicine Sleep Medicine; Visit Provider Internal Medicine Sleep Medicine
DX: E83.10 Disorder of iron metabolism, unspecified (principal); R53.83 Other fatigue; G25.81 Restless legs syndrome
CPT/HCPCS: 36415; 82728; 83540; 83550

== ENCOUNTER → 2022-12-14 15:32 | Outpatient (CLI) | payer MEDICARE, OTHER, SELFPAY ==
[2022-11-13 14:20] VITALS: BMI 45.6
--- NOTE | 2022-12-14 15:37 | DI.RAD.S_ITS ---
PROCEDURE: XR ANKLE RT MIN 3V INDICATIONS: ANKLE ARTHRITIS TECHNIQUE: 3 views of the ankle were acquired. COMPARISON: None. FINDINGS: Bones: No fractures or dislocations. Ankle mortise is normally aligned. No suspicious bony lesions. Tibiotalar and midfoot osteoarthritis. Plantar and dorsal calcaneal bone spurs. Pes planus deformity. Soft tissues: No tibiotalar joint effusion. Achilles tendon appears normal. Right ankle circumferential soft tissue swelling. IMPRESSION: Tibiotalar and midfoot osteoarthritis. Dictated by: Tiffanie Judge MD, PhD on 12/14/2022 at 16:11 Approved by: Tiffanie Judge MD, PhD on 12/14/2022 at 16:11
--- NOTE | 2022-12-14 15:38 | DI.RAD.S_ITS ---
PROCEDURE: XR ANKLE LT MIN 3V INDICATIONS: ANKLE ARTHRITIS TECHNIQUE: 3 views of the ankle were acquired. COMPARISON: None. FINDINGS: Bones: Chronic distal left fibular fracture which is healed in mild deformity. Tibiotalar, subtalar and midfoot osteoarthritis. Pes planus deformity. No acute fractures or dislocations. Ankle mortise is normally aligned. No suspicious bony lesions. Soft tissues: No tibiotalar joint effusion. Achilles tendon appears normal. Left ankle circumferential soft tissue swelling. IMPRESSION: Tibiotalar, subtalar and midfoot osteoarthritis. Dictated by: Tiffanie Judge MD, PhD on 12/14/2022 at 16:08 Approved by: Tiffanie Judge MD, PhD on 12/14/2022 at 16:10
== END ==
PROVIDERS: PCP Internal Medicine; Referring Provider Podiatrist; Visit Provider Podiatrist
DX: M19.071 Primary osteoarthritis, right ankle and foot; M19.072 Primary osteoarthritis, left ankle and foot
CPT/HCPCS: 73610

== ENCOUNTER → 2022-12-29 08:18 | Outpatient (CLI) | payer MEDICARE, OTHER, SELFPAY ==
[2022-11-13 14:20] VITALS: BMI 45.6
--- NOTE | 2022-12-29 | DI.RAD.S_ITS ---
PROCEDURE: FL BARIUM SWALLOW INDICATIONS: Dysphagia, unspecified COMPARISON: None. FINDINGS: Function: There is normal esophageal peristalsis. No elicited gastroesophageal reflux. There is normal transit of a calibrated barium tablet through the esophagus into the stomach. Morphology: Air-contrast images demonstrate normal mucosal morphology. Single contrast views show no esophageal strictures, extrinsic mass effects, or diverticula. Limited images of the stomach demonstrate normal appearance. IMPRESSION: Unremarkable modified barium swallow. Dictated by: Doyle Turner M.D. on 12/29/2022 at 10:46 Approved by: Doyle Turner M.D. on 12/29/2022 at 10:48
--- NOTE | 2022-12-29 13:57 | ST.SWALLOW ---
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 Bret Doherty, ENT Setting Setting Outpatient Care Patient Information Identification Type Name,Date of Patient History Pt was seen for a Modified Barium Swallow Study at the referral of Dr. Doherty, ENT. Pt reports frequent choking of liquids, saliva and 'crumbly foods like nuts, crackers, cookies, etc. Pt described a sensation of pieces not completely swallowed. She also stated that when she is congested (i.e., sinuses, ears , etc.) she has greater difficulty swallowing. Pt stated she takes many medications and thinks some of her medications can make her mouth feel dry. This also causes her to have difficulty swallowing. Pt noted that she has PND all the time that can be difficult to swallow. She reported that her congestion makes it difficult to breath and when eating, she needs to breath through her mouth and that is when she is more likely to choke. Subjective Observations Pt was seated in the floroscopy chair with procedures and directions described for her. She indicated she understood and agreed to proceed. Pt was observed to have a tremor in the head and upper body areas. She denied surgery/injury to the cervical area and any PMH of neurological diagnoses. She also denied a PMH of reflux, but stated she takes Omneprozol for her stomach. Patient Positioning Position View Lat-A/P Imaging Lateral View Textures Administered Trials Presented Thin Liquid via Spoon (IDDSI 0 ),Thin Liquid via Cup (IDDSI 0 ),Thin Liquid via Straw (IDDSI 0),Extremely Thick Liquid via Spoon (IDDSI 4),Regular ( IDDSI 7) Barium Tablet Yes The IDDSI Framework Protocol: IDDSI.1 Oral Impairment Source: The Modified Barium Swallow Impairment Profile (MBSImP??) Lip Closure No labial escape Tongue Control During Bolus Hold Escape to lateral buccal cavity/floor of mouth (FOM) Bolus Preparation/Mastication Timely & efficient chewing & mashing Bolus Transport/Lingual Motion Brisk tongue motion Initiation of Pharyngeal Swallow Bolus head at pyriforms Additional Oral Impairment Observations OME and DKS were noted to be WNL. Pt's dentition was natural with upper and lower second molars missing. ORAL PHASE: Pt presented with good mastication with a rotary chew noted. Good bolus formation, control and AP transition were observed. Pharyngeal Impairment Source: The Modified Barium Swallow Impairment Profile (MBSImP??) Soft Palate Elevation No bolus between soft palate & pharyngeal wall Laryngeal Elevation Part.sup.move.thyroid cart/ part.approx.arytenoids to epiglot.petiole Anterior Hyoid Excursion Partial anterior movement Epiglottic Movement Complete inversion Laryngeal Vestibular Closure Complete; no air/contrast in laryngeal vestibule Pharyngeal Stripping Wave Present - complete Pharyngoesophageal Segment Opening Complete distention & complete duration; no obstruction of flow Tongue Base Retraction Trace column of contrast/air betwn tongue base & post. pharyngeal wall Pharyngeal Residue Trace residue within/on pharyngeal structures Location Diffuse (>3 areas) Additional Pharyngeal Impairment Pharyngeal phase was observed Observations to be WFL. Mild tongue base weakness was noted with delayed swallow initiation ( bolus head in the pyriforms pre-swallow) and reduced hyolaryngeal elevation. Epiglottis, laryngeal vestibule, posterior pharyngeal wall and PES opening were noted to be WNL. Trace residue was observed in the pharynx after swallows and was cleared with subsequent swallows. A/P View Textures Administered Trials Presented Thin Liquid via Spoon (IDDSI 0 ) The IDDSI Framework Protocol: IDDSI.1 A/P View Observations Esophageal Clearance Upright Position Esophageal retention w/ retrograde flow thru pharyngoesoph segment Vocal Fold Function Good Esophageal Function Slowed Clearing,Poor Motility, Stasis,Narrowing Additional A-P Observations Significant esophageal retention following semi-solid and solid trials was observed in AP position. Retro flow of the upper esophagus residual was noted. Sips of water partially cleared residue. Liquid barium and a barium tablet were observed to clear the esophagus within a timely manner. Clinical Impressions Dysphagia Type Esophageal Findings Pt presented with slow esophageal phase clearance with residual remaining despite several sips of water. Further assessment by GI is recommended. Oral and pharyngeal phases of swallowing were observed to be WNL. Patient Appropriate for Therapy No: Swallow is WNL Recommendations Diet Comments No changes in diet recommended . Aspiration Precautions Recommended Precautions Frequent Rest Periods,Small Bites/Sips Additional Precautions Increased mindfulness when swallowing; chew foods well; eat slowly
== END ==
PROVIDERS: PCP Internal Medicine; Referring Provider Otolaryngology; Visit Provider Otolaryngology
DX: R13.10 Dysphagia, unspecified (principal); R49.0 Dysphonia
CPT/HCPCS: 74220; 74230; 92611

== ENCOUNTER → 2023-02-18 13:17 | Outpatient (CLI) | payer MEDICARE, OTHER, SELFPAY ==
[2022-11-13 14:20] VITALS: BMI 45.6
[2023-02-18 14:31] LABS: Hemoglobin A1C% w Est Avg Glu 6.9 % (4.0-6.0)
== END ==
PROVIDERS: PCP Internal Medicine; Referring Provider Student in an Organized Health Care Education/Training Program; Visit Provider Student in an Organized Health Care Education/Training Program
DX: E11.9 Type 2 diabetes mellitus without complications (principal); I10 Essential (primary) hypertension; E78.2 Mixed hyperlipidemia; Z79.4 Long term (current) use of insulin
CPT/HCPCS: 83036

== ENCOUNTER → 2023-08-23 14:40 | Outpatient (CLI) | payer MEDICARE, OTHER, SELFPAY ==
[2022-11-13 14:20] VITALS: BMI 45.6
--- NOTE | 2023-08-23 14:44 | DI.RAD.S_ITS ---
PROCEDURE: XR KNEE LT 3V INDICATIONS: knee pain TECHNIQUE: 3 views of the knee were acquired. COMPARISON: None. FINDINGS: Bones: No fractures or dislocations. No suspicious bony lesions. Medial lateral compartmental joint space narrowing with marginal osteophytes. Moderate patellofemoral joint space narrowing. Soft tissues: No joint effusion. No suspicious soft tissue calcifications. IMPRESSION: Moderate tricompartmental osteoarthritis Approved by: Willy Amador M.D. on 08/23/2023 at 19:12
== END ==
PROVIDERS: PCP Internal Medicine; Referring Provider Internal Medicine; Visit Provider Internal Medicine
DX: M17.12 Unilateral primary osteoarthritis, left knee (principal); M25.562 Pain in left knee
CPT/HCPCS: 73562

== ENCOUNTER → 2023-09-07 11:40 | Outpatient (CLI) | payer MEDICARE, OTHER, SELFPAY ==
[2022-11-13 14:20] VITALS: BMI 45.6
[2023-09-07 13:04] LABS: Albumin 4.2 g/dL (3.5-5.0); BUN Creatinine Ratio 35.2 (6-22); Blood Urea Nitrogen 50 mg/dL (7-17); Calcium 10.4 mg/dL (8.4-10.2); Carbon Dioxide 28 mmol/L (22-32); Chloride 104 mmol/L (98-107); Cholesterol 159 mg/dL (140-199); Estimated Glomerular Filt Rate 38 mL/min (>60); Glucose 187 mg/dL (80-110); HDL Cholesterol 30 mg/dL (40-60); HEMOLYSIS < 15 (0-50); Phosphorous 3.2 mg/dL (2.8-4.1); Potassium 4.9 mmol/L (3.4-5.1); Sodium 140 mmol/L (137-145); Triglycerides 448 mg/dL (35-150)
[2023-09-07 13:04] LABS: Iron 110 ug/dL (37-170)
[2023-09-07 13:13] LABS: Total Iron Binding Capacity 464 ug/dL (265-497)
[2023-09-07 13:15] LABS: Hemoglobin A1C% w Est Avg Glu 8.6 % (4.0-6.0)
[2023-09-07 19:14] LABS: Creatinine Urine Random 89.99 mg/dL
[2023-09-07 19:15] LABS: Microalbumin Urine Random 1.2 mg/dL (0-1.6)
== END ==
PROVIDERS: Internal Medicine Sleep Medicine; PCP Internal Medicine; Referring Provider Student in an Organized Health Care Education/Training Program; Visit Provider Student in an Organized Health Care Education/Training Program
DX: E11.9 Type 2 diabetes mellitus without complications (principal); Z79.4 Long term (current) use of insulin; G47.33 Obstructive sleep apnea (adult) (pediatric); G25.81 Restless legs syndrome; R53.83 Other fatigue; E83.10 Disorder of iron metabolism, unspecified
CPT/HCPCS: 36415; 80061; 80069; 82043; 82570; 83036; 83540; 83550

== ENCOUNTER → 2023-11-30 13:37 | Outpatient (CLI) | payer MEDICARE, OTHER, SELFPAY ==
[2022-11-13 14:20] VITALS: BMI 45.6
== END ==
PROVIDERS: PCP Internal Medicine; Referring Provider Internal Medicine; Visit Provider Internal Medicine
DX: I48.91 Unspecified atrial fibrillation (principal)
CPT/HCPCS: 93246; 93248

== ENCOUNTER → 2023-12-08 14:06 | Outpatient (CLI) | payer MEDICARE, OTHER, SELFPAY ==
[2022-11-13 14:20] VITALS: BMI 45.6
[2023-12-08 14:30] LABS: Appearance Urine UA CLEAR; Bilirubin Urine UA NEGATIVE (NEGATIVE); Color Urine UA YELLOW; Glucose Urine UA NEGATIVE (Negative); Ketones Urine UA NEGATIVE (NEGATIVE); Leukocyte Esterase Urine UA 2+ (NEGATIVE); Nitrite Urine UA POSITIVE (Negative); Occult Blood Urine UA 3+ (Negative); Protein Urine UA NEGATIVE (Negative); Urobilinogen Urine UA 0.2 E.U./dL (0.2)
[2023-12-08 14:34] LABS: pH Urine UA 5.5 (4.5-8.0)
[2023-12-08 14:43] LABS: Bacteria Urine Few (2-10); Culture Indicated Urine Specimen Cultured; RBC Urine 10-30/HPF (0-5/HPF); Squamous Epithelial Cell Urine 1-5 /HPF (0-5/HPF); Urine Volume 10mL (spun); WBC Urine 10-30/HPF (0-5/HPF)
== END ==
PROVIDERS: PCP Internal Medicine; Referring Provider Internal Medicine; Visit Provider Internal Medicine
DX: R30.0 Dysuria (principal)
CPT/HCPCS: 81001; 87077; 87086

== ENCOUNTER → 2023-12-15 10:36 | Outpatient (CLI) | payer MEDICARE, OTHER, SELFPAY ==
[2022-11-13 14:20] VITALS: BMI 45.6
== END ==
PROVIDERS: PCP Internal Medicine; Visit Provider Physician Assistant Medical
DX: R30.0 Dysuria (principal)
CPT/HCPCS: 87086

== ENCOUNTER 2023-12-15 11:08 | Emergency (ER) | payer MEDICARE, OTHER, SELFPAY ==
[2022-11-13 14:20] VITALS: BMI 45.6
[2023-12-15] VITALS (15 sets, daily range): BP systolic 122–156; BP diastolic 57–97; PULSE 66–101; RESP 15–26; TEMP 36.6–36.9; O2SAT 93–98; BMI 44.4
--- NOTE | 2023-12-15 15:34 | EKG_ITS ---
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
[2023-12-15 15:36] LABS: Alanine Aminotransferase 135 IU/L (<35); Albumin 4.2 g/dL (3.5-5.0); Albumin Globulin Ratio 1.5 (1.0-2.8); Alkaline Phosphatase 103 U/L (38-126); Aspartate Aminotransferase 112 IU/L (14-36); BUN Creatinine Ratio 42.2 (6-22); Bilirubin Total 0.7 mg/dL (0.2-1.3); Blood Urea Nitrogen 68 mg/dL (7-17); Calcium 11.9 mg/dL (8.4-10.2); Carbon Dioxide 26 mmol/L (22-32); Chloride 99 mmol/L (98-107); Estimated Glomerular Filt Rate 33 mL/min (>60); Globulin 2.8 g/dL (1.7-4.1); Glucose 103 mg/dL (80-110); HEMOLYSIS 38 (0-50); Lipase 332 U/L (23-300); Potassium 4.4 mmol/L (3.4-5.1); Sodium 134 mmol/L (137-145)
[2023-12-15 15:43] LABS: Hematocrit 33.4 % (36-46); Hemoglobin 11.5 g/dL (12.0-16.0); Mean Corpuscular HGB Conc 34.4 % (30-36); Mean Corpuscular Hemoglobin 32.8 PG (26-34); Mean Corpuscular Volume 95.4 fL (80-100); Platelet Count 343 X10^3/uL (150-400); Red Cell Distribution Width 13.3 % (11.6-14.8); White Blood Cell Count 14.2 X10^3/uL (4.5-11.0)
[2023-12-15 15:45] LABS: Add Manual Diff / Slide Review YES
--- NOTE | 2023-12-15 15:49 | ED_ITS ---
HPI - General Adult General Chief complaint: Weakness Stated complaint: weakness/sent from urgent care Time Seen by Provider: 12/15/23 14:13 Mode of arrival: Wheelchair History of Present Illness HPI narrative: 78-year-old woman with multiple chronic medical problems including hyper calcemia, chronic renal failure morbid obesity, diabetes, hypertension, hyperlipidemia. On December 07 she was complaining of UTI symptoms, urine eventually grew out E coli sensitive to nitrofurantoin and she has 1 more dose of this to complete the full course. She has no longer having UTI symptoms. She complains of general feeling unwell with decreased appetite and increasing myalgias over the last week. In the last couple of days she has noticed an increasing rash over her lower extremities that is maculopapular and a extending to thighs describes it as itchy. Is not appreciated on other parts of her body. She states that she is more unsteady which has been ?coming on for a while? but not necessarily dizzy. She has describing no fevers, current dysuria no abdominal pain no flank pain. No cough, dyspnea, palpitations . Related Data Home Medications Medication Instructions Recorded Confirmed magnesium 200 mg tablet 400 mg PO DAILY ##0 02/21/16 11/24/23 cholecalciferol (vitamin D3) 25 5,000 u Q DAY ##0 08/12/16 11/24/23 mcg (1,000 unit) tablet (Vitamin D3) Resmed S9 VPAP #1 ea 08/01/18 11/24/23 cinnamon bark 500 mg capsule 500 mg PO TID 01/25/19 11/24/23 metformin 500 mg tablet 500 mg PO BID 01/25/19 11/24/23 (Glucophage) Turmeric Curcumin 1 tab PO DAILY 10/09/19 11/24/23 omega-3 fatty acids 500 mg capsule 500 mg PO DAILY 10/09/19 11/24/23 dulaglutide 0.75 mg/0.5 mL 0.75 mg SUBCUT 2XW 09/09/20 11/24/23 subcutaneous pen injector (Trulicity) aspirin 325 mg tablet 325 mg PO DAILY 10/12/21 11/24/23 acetaminophen 325 mg capsule 650 mg PO Q6HR PRN pain/fever 11/13/22 11/24/23 biotin 5,000 mcg chewable tablet 5,000 mcg PO BID 11/13/22 11/24/23 salt moisturizing solution no1 1 spray intranasal BID PRN Dry nose 11/13/22 11/24/23 basaglar SUBCUT 02/07/23 11/24/23 glipizide 10 mg tablet 10 mg PO BID 02/07/23 11/24/23 pen needle, diabetic 31 gauge x #1,200 ea 02/07/23 11/24/23 3/16 (BD Ultra-Fine Mini Pen Needle) bromfenac 0.09 % eye drops 1 drp EYE-LEFT DAILY 11/24/23 11/24/23 ofloxacin 0.3 % eye drops 1 drp EYE-LEFT BID 11/24/23 11/24/23 Previous Rx's Medication Instructions Recorded latanoprost 0.005 % eye drops 1 drops EYE-BOTH BEDTIME #5 mL 07/12/21 (Xalatan) Disabled Parking #1 ea 07/27/21 fluticasone propionate 50 2 spray intranasal DAILY #48 grams 03/28/23 mcg/actuation nasal spray,suspension furosemide 40 mg tablet 40 mg PO QAM #90 tabs 09/06/23 atorvastatin 40 mg tablet 40 mg PO HS #90 tabs 10/06/23 gemfibrozil 600 mg tablet 600 mg PO BID #180 tabs 10/06/23 metoprolol tartrate 50 mg tablet 50 mg PO BID #180 tabs 10/06/23 (Lopressor) omeprazole 20 mg capsule,delayed 20 mg PO DAILY #90 caps 10/06/23 release losartan 50 mg tablet 50 mg PO BID #180 tabs 11/28/23 Allergies Allergy/AdvReac Type Severity Reaction Status Date / Time lisinopril [LISINOPRIL] AdvReac Intermediate COUGH Verified 12/15/23 11:22 Review of Systems Review of Systems Narrative: Pertinent positive and negative findings as per HPI Patient History Medical History (Updated 12/15/23 @ 18:11 by Britney Mayberry MD) COVID-19 Hypercalcemia Chronic renal failure, stage 3a Morbid obesity with BMI of 45.0-49.9, adult Insomnia Behaviorally induced insufficient sleep syndrome Morbid obesity with BMI of 40.0-44.9, adult (02/04/11) Excessive daytime sleepiness Diabetes type 2, controlled Asthma (~1958) Peripheral neuropathy (~2015) Shoulder pain (~2016) Foot pain (~1999) Fibromyalgia Carpal tunnel syndrome (~1997) Ankle pain (~1953) Rosacea (~1989) Rubella (~1955) Measles (~1953) Chicken pox (~1953) History of recurrent ear infection (~1955) Hearing loss (~1955) Cataracts, bilateral (~1999) Menstrual cycle disorder (~1961) Fibroids Endometriosis Chlamydia (~1976) Type 2 diabetes mellitus without complication, with long-term current use of insulin (01/10/17) Glaucoma (02/04/11) Obstructive sleep apnea syndrome (02/04/11) Mixed hyperlipidemia (02/04/11) Essential hypertension (02/04/11) Surgical History Anesthesia Surgical procedure planned History of tonsillectomy (~1952) Status post hysterectomy (~1986) Family History Brother Age: 64 Sleep apnea Child Age: 55 Osteopenia Grandmother Cancer Mother Hypertension Sister Age: 67 Sleep apnea Migraines Family/Other Diabetes mellitus Father No problems noted. Social History household members: none Smoking Status: Never smoker alcohol intake: never Smoking Status: Never smoker Substance Use Type: does not use Exam Initial Vital Signs Initial Vital Signs: Vital Signs Temperature 97.9 F 12/15/23 11:22 Pulse Rate 93 H 12/15/23 11:22 Respiratory Rate 15 12/15/23 11:22 Blood Pressure 129/59 L 12/15/23 11:22 Pulse Oximetry 97 12/15/23 11:22 Oxygen Delivery Method Room Air 12/15/23 11:22 General: Chronically ill-appearing but in no acute distress. Able to give a complete and coherent history. HEENT: Moist mucous membranes, normal sclera with reactive pupils, Respiratory: Lungs are clear to auscultation, no wheezing no rales no rhonchi. Full and symmetrical air movement Cardiac: Regular rate and rhythm no murmurs no bruits Abdomen: Soft, nontender, good bowel tones, no flank pain Skin: Lower extremities with chronic stasis dermatitis now with a maculopapular pruritic rash extending to the mid thighs. Neurologic: Grossly neurologically intact with no obvious asymmetries or abnormalities Extremities: No trauma, 2+ bilateral edema Psych: Cooperative, appropriate insight and affect Course Orders Ordered: ED Orders 12/15/23 14:10 Complete Blood Count AUTO DIFF Stat Comprehensive Metabolic Panel Stat Lipase Stat 12/15/23 15:22 EKG-12 Lead Stat Ondansetron HCl (Ondansetron 4 Mg/2 Ml Inj) 4 mg IV NOW PRN PRN Reason: Nausea And Vomiting Ondansetron HCl (Ondansetron 4 Mg Odt) 4 mg PO NOW PRN PRN Reason: Nausea And Vomiting Discontinued Medications Sodium Chloride (Normal Saline 0.9%) 1,000 mls @ 1,000 mls/hr IV BOLUS ONE Stop: 12/15/23 17:00 Last Infusion: 12/15/23 17:06 Dose: Infused Documented By: Admin: 12/15/23 16:06 Dose: 1,000 mls/hr Documented By: DEMETRIUS Methylprednisolone (Methylprednisolone 125 Mg/2 Ml Vial) 60 mg IV NOW ONE Stop: 12/15/23 16:06 Last Admin: 12/15/23 16:13 Dose: 60 mg Documented By: ANIVAL Vital Signs Vital signs: Vital Signs - 8 hr 12/15/23 11:22 Temperature 97.9 F Pulse Rate 93 H Respiratory Rate 15 Blood Pressure 129/59 L Pulse Oximetry 97 Oxygen Delivery Method Room Air Medical Decision Making Lab Data 12/15/23 14:10 12/15/23 14:10 Labs: Lab Results 12/15/23 Range/Units 14:10 WBC 14.2 H (4.5-11.0) X10^3/uL RBC 3.50 L (4.0-5.2) X10^6/uL Hgb 11.5 L (12.0-16.0) g/dL Hct 33.4 L (36-46) % MCV 95.4 (80-100) fL MCH 32.8 (26-34) PG MCHC 34.4 (30-36) % RDW 13.3 (11.6-14.8) % Plt Count 343 (150-400) X10^3/uL Neut % (Auto) Not Reportable Lymph % (Auto) Not Reportable [place] % (Auto) Not Reportable Eos % (Auto) Not Reportable Baso % (Auto) Not Reportable Lymph # (Auto) Not Reportable [place] # (Auto) Not Reportable Baso # (Auto) Not Reportable Total Counted 100 Seg Neutrophils % 60.0 (38-70) % Band Neutrophils % 4.0 (3-7) % Lymphocytes % (Manual) 19.0 L (25-45) % Monocytes % (Manual) 5.0 (2-11) % Eosinophils % (Manual) 8.0 H (2-4) % Metamyelocytes % 4.0 H (-0) % Neutrophils # (Manual) 9088 H (0193-8113) /uL RBC Morphology Normal morphology Sodium 134 L (137-145) mmol/L Potassium 4.4 (3.4-5.1) mmol/L Chloride 99 (98-107) mmol/L Carbon Dioxide 26 (22-32) mmol/L BUN 68 H (7-17) mg/dL Creatinine 1.61 H (0.52-1.04) mg/dL Estimated GFR 33 L (>60) mL/min BUN/Creatinine Ratio 42.2 H (6-22) Glucose 103 (80-110) mg/dL Calcium 11.9 H (8.4-10.2) mg/dL Total Bilirubin 0.7 (0.2-1.3) mg/dL AST 112 H (14-36) IU/L ALT 135 H (<35) IU/L Alkaline Phosphatase 103 (38-126) U/L Total Protein 7.0 (6.3-8.2) g/dL Albumin 4.2 (3.5-5.0) g/dL Globulin 2.8 (1.7-4.1) g/dL Albumin/Globulin Ratio 1.5 (1.0-2.8) Lipase 332 H (23-300) U/L Urine Dip Bedside Urine Glucose Negative Bedside Urine Bilirubin - Negative Bedside Urine Ketone - Negative Urine Specific [place] 1.015 Bedside Urine Occult Blood - Negative Bedside Urine pH 5.5 Bedside Urine Protein - Negative Bedside Urine Urobilinogen - Negative Bedside Urine Nitrite - Negative Bedside Urine Leukocytes + 70 Esterase Point of care testing: Urine Dip Bedside Urine Glucose Negative Bedside Urine Bilirubin - Negative Bedside Urine Ketone - Negative Urine Specific [place] 1.015 Bedside Urine Occult Blood - Negative Bedside Urine pH 5.5 Bedside Urine Protein - Negative Bedside Urine Urobilinogen - Negative Bedside Urine Nitrite - Negative Bedside Urine Leukocytes + 70 Esterase MDM Narrative Medical decision making narrative: CC: Increasing weakness with lower extremity rash Complicating co-morbidities: Completing course of Macrobid for E coli UTI diagnosed on December 07. Multiple chronic medical problems all of which seem slightly worse today Data collected from: patient Social determinants of health that may influence the patients condition: Patient does live independently Medical records reviewed: Primary care note from November 23 is reviewed. Discussion regarding arrhythmia. Unsure if she is having atrial fibrillation or PACs. I suspect it similar to the rhythm I am seeing on today's EKG which does look like sinus rhythm with PACs. Zio patch was ordered at that time. Note from walk-in clinic today is reviewed patient was started on Macrobid for urinary frequency and is continuing to complain of frequency muscle aches, tenderness decreased appetite and overall instability. Differential considered: Allergic reaction to Macrobid causing the rash, worsening renal failure causing increasing hypercalcemia, viral syndrome, sepsis Exam documented above, pertinent findings include: Patient appears close to her baseline, she does have the new maculopapular rash over the lower extremities only. No evidence of cellulitis. No pneumonia on clinical exam, Cardiac exam is benign. Abdomen is soft. Neurologic exam is entirely nonfocal Lab Test results independently reviewed as above. Pertinent findings: Chemistries show increased baseline creatinine from 1.4-1.6. Slightly elevated calcium at 11.9 Elevated AST and ALT Lipase is minimally elevated at 333 CBC shows a white count at 14.2 with chronic stable anemia Urinalysis is unremarkable Independently reviewed EKG: PACs in a almost bigeminy pattern, nonspecific STT wave changes Treatments: 1 L of fluid, Solu-Medrol for the increasing lower extremity rash Re-evaluations: Patient states she does not feel worse but she does not particularly feel better. The Solu-Medrol does seem to be positively influencing the lower extremity rash. Discussion: 78-year-old woman with a of general complaints none of which seemed to have life-threatening abnormalities associated with him. I am not seeing signs of acute congestive heart failure, dramatically worsening renal failure although she does have a slight bump in her creatinine slight bump to calcium. She was given a L of fluid to help with this. She isn't increasing last over the lower extremities that is responded to Solu-Medrol. I suspect that this is an adverse reaction to her Macrobid. Her urine sample today shows no abnormalities I am going to have her hold her last dose of Macrobid and suggest that she consider this an allergy. I do not think that she will need any additional steroids for the lower extremity rash. She did have a consistent sinus arrhythmia rhythm was in the emergency department. She had PACs almost every 3rd beat. No other concerning findings. All of this is reviewed with the patient. She has a friend who is available to take her home. At this point there has no indication for additional imaging or hospitalization. She is safe for discharge Discharge Plan Departure Patient Disposition: Home Clinical Impression: Allergic reaction due to anti-infective agent, Hypercalcemia Chronic kidney disease Qualifiers: Chronic kidney disease stage: stage 3 (moderate) Chronic kidney disease stage 3 subtype: unspecified whether 3a or 3b Qualified Code(s): N18.30 - Chronic kidney disease, stage 3 unspecified Activity Restrictions/Additional Instructions: Thank you for coming in today I think that the rash on your legs is from the Macrobid that you are taking for your bladder infection. I have given you a dose of steroid in the emergency department in the rashes to be slightly improved. You do not need the last dose of Macrobid. Your urine sample in the emergency department was reassuringly normal Regarding your overall weakness, you were given a L of fluid. Your lab work showed a slight worsening in your kidney function in his slight increase in your calcium levels. Both of these should be improved with the IV fluids I did not find any evidence of significant infection or overwhelming sepsis, no congestive heart failure, acute coronary syndrome, abdominal findings that would suggest we need additional imaging or hospitalization I would encourage you to follow up with your primary care physician. If you find that you are getting worse or develop any new symptoms, please feel free to return to the emergency department for further evaluation. Prescriptions: No Action glipizide 10 mg tablet 10 mg PO BID (DME) pen needle, diabetic [BD Ultra-Fine Mini Pen Needle] 31 gauge x 3/16 needle See Rx Instructions .ROUTE DAILY Qty: 1200 Rx Instructions: As directed basaglar SUBCUT magnesium 200 MG tablet 400 mg PO DAILY Qty: 0 Rx Instructions: in the morning cholecalciferol (vitamin D3) [Vitamin D3] 1,000 UNIT tablet 5,000 u Q DAY Qty: 0 Rx Instructions: in the morning fluticasone propionate 50 mcg/actuation spray,suspension 2 spray intranasal DAILY Qty: 48 3RF furosemide 40 mg tablet 40 mg PO QAM Qty: 90 3RF Rx Instructions: in the morning gemfibrozil 600 mg tablet 600 mg PO BID Qty: 180 3RF metoprolol tartrate [Lopressor] 50 mg tablet 50 mg PO BID Qty: 180 3RF atorvastatin 40 mg tablet 40 mg PO HS Qty: 90 3RF Rx Instructions: takes at bedtime omeprazole 20 mg capsule,delayed release(DR/EC) 20 mg PO DAILY Qty: 90 3RF Rx Instructions: in morning losartan 50 mg tablet 50 mg PO BID Qty: 180 3RF cinnamon bark 500 mg capsule 500 mg PO TID Rx Instructions: Takes 1,000mg 3x a day metformin [Glucophage] 500 mg tablet 500 mg PO BID Trulicity 0.75 mg/0.5 mL pen injector 0.75 mg SUBCUT 2XW Patient Comments: Unkown dose Rx Instructions: takes per week (DME) Disabled Parking See Rx Instructions .ROUTE .MEDSUPPLY Qty: 1 0RF Rx Instructions: Patient qualifies for disabled parking as per the attached form. omega-3 fatty acids 500 mg capsule 500 mg PO DAILY Rx Instructions: at bedtime Turmeric Curcumin 1 tab PO DAILY Rx Instructions: 500 MG at bedtime bromfenac 0.09 % drops 1 drp EYE-LEFT DAILY ofloxacin 0.3 % drops 1 drp EYE-LEFT BID Patient Comments: [NO ORIGINAL SIG] latanoprost [Xalatan] 0.005 % Drops 1 drops EYE-BOTH BEDTIME Qty: 5 0RF aspirin 325 mg Tablet 325 mg PO DAILY Rx Instructions: takes at bedtime acetaminophen 325 mg Capsule 650 mg PO Q6HR MDD 4000 PRN (Reason: pain/fever) salt moisturizing solution no1 Mist 1 spray INTRANASAL BID PRN (Reason: Dry nose) biotin 5,000 mcg Tablet,Chewable 5,000 mcg PO BID (DME) Resmed S9 VPAP Qty: 1 Dose Instruction: As directed Patient Comments: Pressure: IPAP 20 EPAP 10 DME: [facility] Rx Instructions: As directed Referrals: Ivan Recinos MD [Primary Care Provider] - Stand Alone Forms: Patient Portal/API
[2023-12-15 15:58] LABS: Neutrophils Absolute Manual 9088 /uL (3000-5900); RBC Morphology Normal Morphology; Total Cells Counted 100
[2023-12-15] MEDS: SODIUM CHLORIDE 0.9% 1,000 ML 1000 ML IV (16:06)
[2023-12-15] MEDS: methylPREDNISolone 125 MG/2 ML VIAL 60 MG IV (16:13)
[2023-12-15 19:27] LABS: Urine Volume 10mL (spun)
[2023-12-15 19:28] LABS: Bacteria Urine Many (>30); Culture Indicated Urine Specimen Cultured; RBC Urine None Seen (0-5/HPF); Squamous Epithelial Cell Urine 1-5 /HPF (0-5/HPF); WBC Urine 5-10/HPF (0-5/HPF)
== END 2023-12-15 18:29 | disposition home or self-care (01) ==
PROVIDERS: Emergency Provider Emergency Medicine; PCP Internal Medicine
DX: N18.30 Chronic kidney disease, stage 3 unspecified (principal); T37.95XA Adverse effect of unspecified systemic anti-infective and antiparasitic, initial encounter; E83.52 Hypercalcemia; R00.0 Tachycardia, unspecified; I44.1 Atrioventricular block, second degree
CPT/HCPCS: 36415; 80053; 81003; 81015; 83690; 85007; 85025; 87086; 93005; 96361; 96374; 99284; J2919

== ENCOUNTER → 2023-12-26 08:24 | Outpatient (CLI) | payer MEDICARE, OTHER, SELFPAY ==
[2022-11-13 14:20] VITALS: BMI 45.6
[2023-12-26 09:50] LABS: Appearance Urine UA CLOUDY; Bilirubin Urine UA NEGATIVE (NEGATIVE); Color Urine UA YELLOW; Glucose Urine UA NEGATIVE (Negative); Ketones Urine UA NEGATIVE (NEGATIVE); Leukocyte Esterase Urine UA 3+ (NEGATIVE); Nitrite Urine UA NEGATIVE (Negative); Occult Blood Urine UA TRACE-INTACT (Negative); Protein Urine UA NEGATIVE (Negative); Urobilinogen Urine UA 0.2 E.U./dL (0.2)
[2023-12-26 10:10] LABS: Urine Volume 10mL (spun)
[2023-12-26 10:11] LABS: RBC Urine 1-5/HPF (0-5/HPF)
[2023-12-26 10:12] LABS: Bacteria Urine Many (>30); Culture Indicated Urine Specimen Cultured; Squamous Epithelial Cell Urine None Seen (0-5/HPF); WBC Urine 30-100/HPF (0-5/HPF)
== END ==
PROVIDERS: PCP Internal Medicine; Referring Provider Internal Medicine; Visit Provider Internal Medicine
DX: R30.0 Dysuria (principal); N30.01 Acute cystitis with hematuria
CPT/HCPCS: 81001; 87077; 87086; 87186

== ENCOUNTER 2023-12-29 15:15 | Outpatient (RCR) | payer MEDICARE, OTHER, SELFPAY ==
[2022-11-13 14:20] VITALS: BMI 45.6
--- NOTE | 2023-09-28 14:15 | PT.OIE ---
Current Diagnoses Primary osteoarthritis, right ankle and foot (09/28/23) Primary osteoarthritis, left ankle and foot (09/28/23) Pain in left knee (09/28/23) Sciatica, right side (09/28/23) Past Medical History (Last Updated 11/22/22 @ 10:50 by Ivan Recinos MD) Ankle pain (~1953) Asthma (~1958) Behaviorally induced insufficient sleep syndrome Carpal tunnel syndrome (~1997) Cataracts, bilateral (~1999) Chicken pox (~1953) Chlamydia (~1976) Chronic renal failure, stage 3a COVID-19 Diabetes type 2, controlled Endometriosis Essential hypertension (02/04/11) Excessive daytime sleepiness Fibroids Fibromyalgia Foot pain (~1999) Glaucoma (02/04/11) Hearing loss (~1955) History of recurrent ear infection (~1955) Hypercalcemia Insomnia Measles (~1953) Menstrual cycle disorder (~1961) Mixed hyperlipidemia (02/04/11) Morbid obesity with BMI of 40.0-44.9, adult (02/04/11) Morbid obesity with BMI of 45.0-49.9, adult Obstructive sleep apnea syndrome (02/04/11) Peripheral neuropathy (~2015) Rosacea (~1989) Rubella (~1955) Shoulder pain (~2016) Type 2 diabetes mellitus without complication, with long-term current use of insulin (01/10/17) Past Surgical History (Last Reviewed 11/13/22 @ 11:03 by Guzman Ramsey MD) Anesthesia History of tonsillectomy (~1952) Status post hysterectomy (~1986) Surgical procedure planned Visit Care Team Role Provider Type Ivan Recinos MD Attending Provider Physician Family Provider Primary Care Provider Referring Provider Specialty: Internal Medicine Address: [address] [place] [address], [address], [facility] Email: [email or web address] Physical Therapy Initial Evaluation PT-OP-A Visit Information Start: 09/27/23 16:38 Freq: Status: Active Protocol: Document 09/28/23 09:04 JAVIER (Rec: 09/28/23 09:49 SAK [id number]) Out-Patient Physical Therapy Visit Information Visit Information Visit Type Initial Evaluation Visit Note Objective evaluation limited by patient late arrival to PT, had to take extensive subjective history due to paperwork not filled out in advance Visit Start Time 09:00 Visit Stop Time 09:45 Visit Number 1 Evaluation Information Evaluation Date 09/28/23 PT-OP-B Current Condition Start: 09/27/23 16:38 Freq: Status: Active Protocol: Document 09/28/23 09:04 SAK (Rec: 09/28/23 09:49 SAK [id number]) Current Condition History of Current Condition Onset Date 10+ years Current Complaints right hip pain, sciatica, left knee, kelsi ankles History of Current Condition left knee and right hip often feel like they are going to give out when she is standing or walking. When getting out of the care she states her right foot and ankle sometimes hurt so much she can't put weight on it and has to wait. Also has edema left LE (for years). Reports she has gained weight over the years as well and she expresses she knows extra weight contributes . Patient is diabetic and c/o diabetic neuropathty witgh pain soles of her feet. Did aquatic therapy in the past but hasn't. Uses single point cane in right hand, states she is very right handed. Worst problem is standing from sitting; feels pain in knees and hip. 5 years ago getting off bus twisted left knee badly. History of spraining right ankle. Sits in rocking chair most of the day, legs dependent. Has significant swelling left LE with reddish discoloriation mid calf down, hasn't been wearing compression stockings. Can't lay on her sides due to hip pain and shoulder pain kelsi. Has previously done aquatic exercise but not for several years. Prior Treatments and Tests x-rays: left knee, kelsi ankles. Moderate osteoarthritis, history shots left knee with good response. Treatment Goals Patient/Caregiver Goals Decrease pain, improved strength and activity tolerance. Prior Functional Status Baseline Function- ADL's Modified Independent Baseline Function- Mobility Modified Independent Baseline Function- Gait cane Current Functional Impairments (Reported) Functional Limitations- ADL's painful and slow Functional Limitations- Mobility/Gait slow, limited to household and short community distances Functional Limitations- Recreation/ none Hobbies PT-OP-C Subjective Start: 09/27/23 16:38 Freq: Status: Active Protocol: Document 09/28/23 09:04 SAK (Rec: 09/28/23 14:15 SAK [id number]) Patient Questionnaires Lower Extremity Functional Scale LEFS Score 46 OP-PT Pain Assessment Pain Assessment Grid Paper Pain Assessment Grid Completed Yes Location right ankle Intensity 9 left ankle Intensity 6 left knee Intensity 3 right knee Intensity 6 right hip Intensity 5 PT-OP-G Mobility & Gait Start: 09/27/23 16:38 Freq: Status: Active Protocol: Document 09/28/23 09:04 SAK (Rec: 09/28/23 14:[address] [facility] [id number]) OP Gait Assessment Gait Gait Assistance Required: Independent Assistive Devices Assistive Device Straight Cane Gait Deviations General Gait Pattern Antalgic,Decreased Stride Length,Decreased Feet Clearance,Flexed Trunk Stair Climbing Evaluation Technique/Endurance Stair Climbing Technique Step to Step PT-OP-H Neuro Start: 09/27/23 16:38 Freq: Status: Active Protocol: Document 09/28/23 09:04 SAK (Rec: 09/28/23 14:[address] [facility] [id number]) Sensation Evaluation Gross Sensation Sensation Description Paresthesia PT-OP-J Posture/Palpation/Skin Start: 09/27/23 16:38 Freq: Status: Active Protocol: Document 09/28/23 09:04 SAK (Rec: 09/28/23 14:[address] [facility] [id number]) Posture Evaluation Position Standing Head/C-Spine Posture Forward Head T-Spine Posture Increased Kyphosis L-Spine Posture Increased Lordosis Shoulder Posture (L) Rounded,(R) Rounded Scapula Posture (L) Protracted,(R) Protracted Pelvis Posture Anteriorly Tilted Hip Posture (L) Externally Rotated,(R) Externally Rotated Knee Posture (L) Genu Valgus,(R) Genu Valgus Ankle/Foot Posture (L) Pronated,(R) Pronated PT-OP-K Range of Motion Start: 09/27/23 16:38 Freq: Status: Active Protocol: Document 09/28/23 09:04 SAK (Rec: 09/28/23 14:[address] [facility] [id number]) Lumbar Spine Range of Motion Lumbar Spine Active ROM Limitations Soft Tissue Tightness,Pain Comments mod decrease all motions Hip Goniometric Range of Motion Hip Right Hip ROM WFL No Flexion w/Knee Flexed 100 Straight Leg Raise 45 Extension 0 Abduction 20 Internal Rotation 10 External Rotation 35 Left Hip ROM WFL No Flexion w/Knee Flexed 100 Straight Leg Raise 55 Extension 0 Abduction 25 Internal Rotation 15 External Rotation 40 Hip ROM Limitations Hip ROM Limitations Soft Tissue Tightness,Pain Knee Goniometric Range of Motion Knee KELSI Knee ROM WFL Yes Ankle and Foot Goniometric Range of Motion Ankle and Foot Left Dorsiflexion with Knee Flexed 5 Dorsiflexion with Knee Extended 0 Plantarflexion 35 Inversion 25 Eversion 10 RIGHT Ankle/Foot ROM WFL No Dorsiflexion with Knee Flexed 5 Dorsiflexion with Knee Extended 0 Plantarflexion 35 Inversion 25 Eversion 10 PT-OP-M Strength Start: 09/27/23 16:38 Freq: Status: Active Protocol: Document 09/28/23 09:[address] [facility] (Rec: 09/28/23 14:[address] [facility] [id number]) Trunk Strength Trunk Manual Muscle Testing Flexion 2 Poor Extension 2 Poor Core Stabilization poor Hip Strength Hip Manual Muscle Testing kelsi Flexion (L2) 3- Fair- Extension (S1) 3- Fair- Abduction 3- Fair- External Rotation 3+ Fair+ Internal Rotation 3+ Fair+ Knee Strength Knee Manual Muscle Testing kelsi Flexion (S2) 4- Good- Extension (L3) 4- Good- Ankle/Foot Strength Ankle and Foot Manual Muscle Testing kelsi Dorsiflexion (L4) 4- Good- Plantarflexion (S1) 4- Good- Inversion 4- Good- Eversion (S1) 4- Good- PT-OP-Q Treatments Start: 09/27/23 16:38 Freq: Status: Active Protocol: Document 09/28/23 09:[address] [facility] (Rec: 09/28/23 14:[address] [facility] [id number]) Self-Care/Home Management Treatment Education Patient Education Home Exercise Program,Pain Management Other Education return to pool for aquatic exercise to decrease compressive forces on her joints. PT-OP-T Assessment and Plan Start: 09/27/23 16:38 Freq: Status: Active Protocol: Document 09/28/23 09:[address] [facility] (Rec: 09/28/23 09:[address] [facility] [id number]) Physical Therapy Assessment Rehab Potential Rehabilitation Potential Good Evaluation Complexity Number of Personal Factors/Comorbidities 1-2 Number of Body Systems Impaired 3 Clinical Presentation at Evaluation Evolving Impairments Impairments Activity Tolerance,Gait,Pain, ROM,Strength Assessment Summary Assessment Patient presents to PT with function-limiting pain right hip, bilateral knees, bilateral feet and ankles with x-rays showing arthritis. Patient also has a history of osteoarthritis, fibromyalgia, and DM with neuropathy causing pain bottoms of feet when she walks. She has gained weight and reports her activity level is very low, spending the majority of her time in a rocking chair. Feel she will benefit from PT for gentle strengthening of LE's and core , and flexibility. Have also recommended to her that she resume aquatic exercise that she used to do any found helpful. POC was discussed and patient was in agreement. Physical Therapy Plan Frequency and Duration Frequency of Treatment 2x/Week Duration of treatment (weeks) 12 Plan of Care Start Date 09/28/23 Plan of Care End Date 12/29/23 Therapeutic Interventions Therapeutic Interventions Gait Training,Home Exercise Program,Manual Therapy,Patient /Caregiver Education,Self-Care /Home Management,Soft Tissue Mobilization,Taping, Therapeutic Activities, Therapeutic Exercises Next Visit Focus/Plan Next Note Type Treatment Note Next Visit Plan Review HEP, recumbant elliptical, progression of ther ex as tolerated.
--- NOTE | 2023-09-28 16:54 | PT.OIE ---
Current Diagnoses Primary osteoarthritis, right ankle and foot (09/28/23) Primary osteoarthritis, left ankle and foot (09/28/23) Pain in left knee (09/28/23) Sciatica, right side (09/28/23) Past Medical History (Last Updated 11/22/22 @ 10:50 by Ivan Recinos MD) Ankle pain (~1953) Asthma (~1958) Behaviorally induced insufficient sleep syndrome Carpal tunnel syndrome (~1997) Cataracts, bilateral (~1999) Chicken pox (~1953) Chlamydia (~1976) Chronic renal failure, stage 3a COVID-19 Diabetes type 2, controlled Endometriosis Essential hypertension (02/04/11) Excessive daytime sleepiness Fibroids Fibromyalgia Foot pain (~1999) Glaucoma (02/04/11) Hearing loss (~1955) History of recurrent ear infection (~1955) Hypercalcemia Insomnia Measles (~1953) Menstrual cycle disorder (~1961) Mixed hyperlipidemia (02/04/11) Morbid obesity with BMI of 40.0-44.9, adult (02/04/11) Morbid obesity with BMI of 45.0-49.9, adult Obstructive sleep apnea syndrome (02/04/11) Peripheral neuropathy (~2015) Rosacea (~1989) Rubella (~1955) Shoulder pain (~2016) Type 2 diabetes mellitus without complication, with long-term current use of insulin (01/10/17) Past Surgical History (Last Reviewed 11/13/22 @ 11:03 by Guzman Ramsey MD) Anesthesia History of tonsillectomy (~1952) Status post hysterectomy (~1986) Surgical procedure planned Visit Care Team Role Provider Type Ivan Recinos MD Attending Provider Physician Family Provider Primary Care Provider Referring Provider Specialty: Internal Medicine Address: [address] [place] [address], [address], [facility] Email: [email or web address] Physical Therapy Initial Evaluation PT-OP-A Visit Information Start: 09/27/23 16:38 Freq: Status: Active Protocol: Document 09/28/23 09:04 JAVIER (Rec: 09/28/23 09:49 SAK [id number]) Out-Patient Physical Therapy Visit Information Visit Information Visit Type Initial Evaluation Visit Note Objective evaluation limited by patient late arrival to PT, had to take extensive subjective history due to paperwork not filled out in advance Visit Start Time 09:00 Visit Stop Time 09:45 Visit Number 1 Evaluation Information Evaluation Date 09/28/23 PT-OP-B Current Condition Start: 09/27/23 16:38 Freq: Status: Active Protocol: Document 09/28/23 09:04 SAK (Rec: 09/28/23 09:49 SAK [id number]) Current Condition History of Current Condition Onset Date 10+ years Current Complaints right hip pain, sciatica, left knee, kelsi ankles History of Current Condition left knee and right hip often feel like they are going to give out when she is standing or walking. When getting out of the care she states her right foot and ankle sometimes hurt so much she can't put weight on it and has to wait. Also has edema left LE (for years). Reports she has gained weight over the years as well and she expresses she knows extra weight contributes . Patient is diabetic and c/o diabetic neuropathty witgh pain soles of her feet. Did aquatic therapy in the past but hasn't. Uses single point cane in right hand, states she is very right handed. Worst problem is standing from sitting; feels pain in knees and hip. 5 years ago getting off bus twisted left knee badly. History of spraining right ankle. Sits in rocking chair most of the day, legs dependent. Has significant swelling left LE with reddish discoloriation mid calf down, hasn't been wearing compression stockings. Can't lay on her sides due to hip pain and shoulder pain kelsi. Has previously done aquatic exercise but not for several years. Prior Treatments and Tests x-rays: left knee, kelsi ankles. Moderate osteoarthritis, history shots left knee with good response. Treatment Goals Patient/Caregiver Goals Decrease pain, improved strength and activity tolerance. Prior Functional Status Baseline Function- ADL's Modified Independent Baseline Function- Mobility Modified Independent Baseline Function- Gait cane Current Functional Impairments (Reported) Functional Limitations- ADL's painful and slow Functional Limitations- Mobility/Gait slow, limited to household and short community distances Functional Limitations- Recreation/ none Hobbies PT-OP-C Subjective Start: 09/27/23 16:38 Freq: Status: Active Protocol: Document 09/28/23 09:04 SAK (Rec: 09/28/23 14:15 SAK [id number]) Patient Questionnaires Lower Extremity Functional Scale LEFS Score 46 OP-PT Pain Assessment Pain Assessment Grid Paper Pain Assessment Grid Completed Yes Location right ankle Intensity 9 left ankle Intensity 6 left knee Intensity 3 right knee Intensity 6 right hip Intensity 5 PT-OP-G Mobility & Gait Start: 09/27/23 16:38 Freq: Status: Active Protocol: Document 09/28/23 09:04 SAK (Rec: 09/28/23 14:15 [facility] [id number]) OP Gait Assessment Gait Gait Assistance Required: Independent Assistive Devices Assistive Device Straight Cane Gait Deviations General Gait Pattern Antalgic,Decreased Stride Length,Decreased Feet Clearance,Flexed Trunk Stair Climbing Evaluation Technique/Endurance Stair Climbing Technique Step to Step PT-OP-H Neuro Start: 09/27/23 16:38 Freq: Status: Active Protocol: Document 09/28/23 09:04 SAK (Rec: 09/28/23 14:15 [facility] [id number]) Sensation Evaluation Gross Sensation Sensation Description Paresthesia PT-OP-J Posture/Palpation/Skin Start: 09/27/23 16:38 Freq: Status: Active Protocol: Document 09/28/23 09:04 SAK (Rec: 09/28/23 14:15 [facility] [id number]) Posture Evaluation Position Standing Head/C-Spine Posture Forward Head T-Spine Posture Increased Kyphosis L-Spine Posture Increased Lordosis Shoulder Posture (L) Rounded,(R) Rounded Scapula Posture (L) Protracted,(R) Protracted Pelvis Posture Anteriorly Tilted Hip Posture (L) Externally Rotated,(R) Externally Rotated Knee Posture (L) Genu Valgus,(R) Genu Valgus Ankle/Foot Posture (L) Pronated,(R) Pronated PT-OP-K Range of Motion Start: 09/27/23 16:38 Freq: Status: Active Protocol: Document 09/28/23 09:04 SAK (Rec: 09/28/23 14:15 [facility] [id number]) Lumbar Spine Range of Motion Lumbar Spine Active ROM Limitations Soft Tissue Tightness,Pain Comments mod decrease all motions Hip Goniometric Range of Motion Hip Right Hip ROM WFL No Flexion w/Knee Flexed 100 Straight Leg Raise 45 Extension 0 Abduction 20 Internal Rotation 10 External Rotation 35 Left Hip ROM WFL No Flexion w/Knee Flexed 100 Straight Leg Raise 55 Extension 0 Abduction 25 Internal Rotation 15 External Rotation 40 Hip ROM Limitations Hip ROM Limitations Soft Tissue Tightness,Pain Knee Goniometric Range of Motion Knee KELSI Knee ROM WFL Yes Ankle and Foot Goniometric Range of Motion Ankle and Foot Left Dorsiflexion with Knee Flexed 5 Dorsiflexion with Knee Extended 0 Plantarflexion 35 Inversion 25 Eversion 10 RIGHT Ankle/Foot ROM WFL No Dorsiflexion with Knee Flexed 5 Dorsiflexion with Knee Extended 0 Plantarflexion 35 Inversion 25 Eversion 10 PT-OP-M Strength Start: 09/27/23 16:38 Freq: Status: Active Protocol: Document 09/28/23 09:04 [facility] (Rec: 09/28/23 14:15 [facility] [id number]) Trunk Strength Trunk Manual Muscle Testing Flexion 2 Poor Extension 2 Poor Core Stabilization poor Hip Strength Hip Manual Muscle Testing kelsi Flexion (L2) 3- Fair- Extension (S1) 3- Fair- Abduction 3- Fair- External Rotation 3+ Fair+ Internal Rotation 3+ Fair+ Knee Strength Knee Manual Muscle Testing kelsi Flexion (S2) 4- Good- Extension (L3) 4- Good- Ankle/Foot Strength Ankle and Foot Manual Muscle Testing kelsi Dorsiflexion (L4) 4- Good- Plantarflexion (S1) 4- Good- Inversion 4- Good- Eversion (S1) 4- Good- PT-OP-Q Treatments Start: 09/27/23 16:38 Freq: Status: Active Protocol: Document 09/28/23 09:04 [facility] (Rec: 09/28/23 14:15 [facility] [id number]) Self-Care/Home Management Treatment Education Patient Education Home Exercise Program,Pain Management Other Education issued written HEP encouraged return to pool for aquatic exercise to decrease compressive forces on her joints. PT-OP-T Assessment and Plan Start: 09/27/23 16:38 Freq: Status: Active Protocol: Document 09/28/23 09:04 [facility] (Rec: 09/28/23 09:49 [facility] [id number]) Physical Therapy Assessment Rehab Potential Rehabilitation Potential Good Evaluation Complexity Number of Personal Factors/Comorbidities 1-2 Number of Body Systems Impaired 3 Clinical Presentation at Evaluation Evolving Impairments Impairments Activity Tolerance,Gait,Pain, ROM,Strength Goals Three Impairment unable to take walks Short Term Goal (STG) Decrease pain and improve activity tolerance sufficient for patient able to walk at least 6 min with single point cane or trekking poles STG Duration 11/11/23 Skilled Nursing Goal (LTG) Patient will improve walking ability sufficient to go grocery shopping without using motorized cart LTG Duration 12/29/23 One Impairment LEFS-lower extremity functional scale score 46% Short Term Goal (STG) Improve LEFS to at least 60% as measure of improved activity tolerance STG Duration 11/11/23 Skilled Nursing Goal (LTG) Improve LEFS to at least 70% as measure of improved activity tolerance and quality of life LTG Duration 12/29/23 Two Impairment strength and flexibility impairments bilateral LE's, core Short Term Goal (STG) Patient will be instructed in HEP for purposes of flexibility and strengthening of her LE's STG Duration 11/11/23 Contract Assistant Goal (LTG) Patient will be independent and compliant with HEP and demonstrate improvement in strength to at least 4+/5 all LE muscle groups. LTG Duration 12/29/23 Assessment Summary Assessment Patient presents to PT with function-limiting pain right hip, bilateral knees, bilateral feet and ankles with x-rays showing arthritis. Patient also has a history of osteoarthritis, fibromyalgia, and DM with neuropathy causing pain bottoms of feet when she walks. She reports she has gained weight and reports her activity level is very low, spending the majority of her time in a rocking chair. Feel she will benefit from PT for gentle strengthening of LE's and core, and flexibility. Have also recommended to her that she resume aquatic exercise that she used to do any found helpful. POC was discussed and patient was in agreement. Physical Therapy Plan Frequency and Duration Frequency of Treatment 2x/Week Duration of treatment (weeks) 12 Plan of Care Start Date 09/28/23 Plan of Care End Date 12/29/23 Therapeutic Interventions Therapeutic Interventions Gait Training,Home Exercise Program,Manual Therapy,Patient /Caregiver Education,Self-Care /Home Management,Soft Tissue Mobilization,Taping, Therapeutic Activities, Therapeutic Exercises Next Visit Focus/Plan Next Note Type Treatment Note Next Visit Plan Review HEP, recumbant elliptical, progression of ther ex as tolerated.
--- NOTE | 2023-09-29 17:00 | PT.OPPOC ---
Physical, Occupational & Speech Therapy At [facility] Current Diagnoses Primary osteoarthritis, right ankle and foot (09/28/23) Primary osteoarthritis, left ankle and foot (09/28/23) Pain in left knee (09/28/23) Sciatica, right side (09/28/23) Visit Care Team Role Provider Type Ivan Recinos MD Attending Provider Physician Family Provider Primary Care Provider Referring Provider Specialty: Internal Medicine Address: [address] [place] [address], [address], [facility] Email: [email or web address] Plan Of Care PT-OP-B Current Condition Start: 09/27/23 16:38 Freq: Status: Active Protocol: Document 09/28/23 09:04 JAVIER (Rec: 09/28/23 09:49 SAK [id number]) Current Condition History of Current Condition Onset Date 10+ years Current Complaints right hip pain, sciatica, left knee, shira ankles History of Current Condition left knee and right hip often feel like they are going to give out when she is standing or walking. When getting out of the care she states her right foot and ankle sometimes hurt so much she can't put weight on it and has to wait. Also has edema left LE (for years). Reports she has gained weight over the years as well and she expresses she knows extra weight contributes . Patient is diabetic and c/o diabetic neuropathty witgh pain soles of her feet. Did aquatic therapy in the past but hasn't. Uses single point cane in right hand, states she is very right handed. Worst problem is standing from sitting; feels pain in knees and hip. 5 years ago getting off bus twisted left knee badly. History of spraining right ankle. Sits in rocking chair most of the day, legs dependent. Has significant swelling left LE with reddish discoloriation mid calf down, hasn't been wearing compression stockings. Can't lay on her sides due to hip pain and shoulder pain shira. Has previously done aquatic exercise but not for several years. Prior Treatments and Tests x-rays: left knee, shira ankles. Moderate osteoarthritis, history shots left knee with good response. Treatment Goals Patient/Caregiver Goals Decrease pain, improved strength and activity tolerance. Prior Functional Status Baseline Function- ADL's Modified Independent Baseline Function- Mobility Modified Independent Baseline Function- Gait cane Current Functional Impairments (Reported) Functional Limitations- ADL's painful and slow Functional Limitations- Mobility/Gait slow, limited to household and short community distances Functional Limitations- Recreation/ none Hobbies PT-OP-T Assessment and Plan Start: 09/27/23 16:38 Freq: Status: Active Protocol: Document 09/28/23 09:04 JAVIER (Rec: 09/28/23 09:49 [facility] [id number]) Physical Therapy Assessment Rehab Potential Rehabilitation Potential Good Evaluation Complexity Number of Personal Factors/Comorbidities 1-2 Number of Body Systems Impaired 3 Clinical Presentation at Evaluation Evolving Impairments Impairments Activity Tolerance,Gait,Pain, ROM,Strength Goals Three Impairment unable to take walks Short Term Goal (STG) Decrease pain and improve activity tolerance sufficient for patient able to walk at least 6 min with single point cane or trekking poles STG Duration 11/11/23 Tax Director Goal (LTG) Patient will improve walking ability sufficient to go grocery shopping without using motorized cart LTG Duration 12/29/23 One Impairment LEFS-lower extremity functional scale score 46% Short Term Goal (STG) Improve LEFS to at least 60% as measure of improved activity tolerance STG Duration 11/11/23 Tax Director Goal (LTG) Improve LEFS to at least 70% as measure of improved activity tolerance and quality of life LTG Duration 12/29/23 Two Impairment strength and flexibility impairments bilateral LE's, core Short Term Goal (STG) Patient will be instructed in HEP for purposes of flexibility and strengthening of her LE's STG Duration 11/11/23 Prison Goal (LTG) Patient will be independent and compliant with HEP and demonstrate improvement in strength to at least 4+/5 all LE muscle groups. LTG Duration 12/29/23 Assessment Summary Assessment Patient presents to PT with function-limiting pain right hip, bilateral knees, bilateral feet and ankles with x-rays showing arthritis. Patient also has a history of osteoarthritis, fibromyalgia, and DM with neuropathy causing pain bottoms of feet when she walks. She reports she has gained weight and reports her activity level is very low, spending the majority of her time in a rocking chair. Feel she will benefit from PT for gentle strengthening of LE's and core, and flexibility. Have also recommended to her that she resume aquatic exercise that she used to do any found helpful. POC was discussed and patient was in agreement. Physical Therapy Plan Frequency and Duration Frequency of Treatment 2x/Week Duration of treatment (weeks) 12 Plan of Care Start Date 09/28/23 Plan of Care End Date 12/29/23 Therapeutic Interventions Therapeutic Interventions Gait Training,Home Exercise Program,Manual Therapy,Patient /Caregiver Education,Self-Care /Home Management,Soft Tissue Mobilization,Taping, Therapeutic Activities, Therapeutic Exercises Next Visit Focus/Plan Next Note Type Treatment Note Next Visit Plan Review HEP, recumbant elliptical, progression of ther ex as tolerated. Plan of Care Dates Plan of Care Start Date 09/28/23 Plan of Care End Date 12/29/23 Electronically Signed by: Gisele Jimenez, PT 09/29/23 1700 If you are in agreement with this Plan of Care, please return a signed and dated copy. I have reviewed this Plan of Care and certify that the skilled therapy services above are required to meet the patient?s needs. Physician Signature Date Printed Name and Credentials Clinical Instructor Signature Printed Name and Credentials
--- NOTE | 2023-10-11 14:18 | PT.OTN ---
Current Diagnoses Primary osteoarthritis, right ankle and foot (10/11/23) Primary osteoarthritis, left ankle and foot (10/11/23) Pain in left knee (10/11/23) Sciatica, right side (10/11/23) Physical Therapy Treatment Note PT-OP-A Visit Information Start: 09/27/23 16:38 Freq: Status: Active Protocol: Document 10/11/23 11:25 [facility] (Rec: 10/11/23 12:03 [facility] [id number]) Out-Patient Physical Therapy Visit Information Visit Information Visit Type Treatment Note Visit Start Time 11:20 Visit Number 2 Evaluation Information Evaluation Date 09/28/23 PT-OP-B Current Condition Start: 09/27/23 16:38 Freq: Status: Active Protocol: Document 10/11/23 11:25 [facility]AK (Rec: 10/11/23 12:03 [facility] [id number]) Current Condition History of Current Condition Onset Date 10+ years Current Complaints right hip pain, sciatica, left knee, kelsi ankles History of Current Condition left knee and right hip often feel like they are going to give out when she is standing or walking. When getting out of the care she states her right foot and ankle sometimes hurt so much she can't put weight on it and has to wait. Also has edema left LE (for years). Reports she has gained weight over the years as well and she expresses she knows extra weight contributes . Patient is diabetic and c/o diabetic neuropathty witgh pain soles of her feet. Did aquatic therapy in the past but hasn't. Uses single point cane in right hand, states she is very right handed. Worst problem is standing from sitting; feels pain in knees and hip. 5 years ago getting off bus twisted left knee badly. History of spraining right ankle. Sits in rocking chair most of the day, legs dependent. Has significant swelling left LE with reddish discoloriation mid calf down, hasn't been wearing compression stockings. Can't lay on her sides due to hip pain and shoulder pain kelsi. Has previously done aquatic exercise but not for several years. Prior Treatments and Tests x-rays: left knee, kelsi ankles. Moderate osteoarthritis, history shots left knee with good response. PT-OP-C Subjective Start: 09/27/23 16:38 Freq: Status: Active Protocol: Document 10/11/23 11:25 [facility] (Rec: 10/11/23 12:03 [facility] [id number]) OP-PT Subjective Patient Comments Patient Comments Very sore today, left knee gives way without warning. Didn't have a ball or a band to use with HEP. PT-OP-G Mobility & Gait Start: 09/27/23 16:38 Freq: Status: Active Protocol: Document 09/28/23 09:04 [facility] (Rec: 09/28/23 14:15 [facility] [id number]) OP Gait Assessment Gait Gait Assistance Required: Independent Assistive Devices Assistive Device Straight Cane Gait Deviations General Gait Pattern Antalgic,Decreased Stride Length,Decreased Feet Clearance,Flexed Trunk Stair Climbing Evaluation Technique/Endurance Stair Climbing Technique Step to Step PT-OP-H Neuro Start: 09/27/23 16:38 Freq: Status: Active Protocol: Document 09/28/23 09:04 [facility] (Rec: 09/28/23 14:15 [facility] [id number]) Sensation Evaluation Gross Sensation Sensation Description Paresthesia PT-OP-J Posture/Palpation/Skin Start: 09/27/23 16:38 Freq: Status: Active Protocol: Document 09/28/23 09:04 [facility] (Rec: 09/28/23 14:15 [facility] [id number]) Posture Evaluation Position Standing Head/C-Spine Posture Forward Head T-Spine Posture Increased Kyphosis L-Spine Posture Increased Lordosis Shoulder Posture (L) Rounded,(R) Rounded Scapula Posture (L) Protracted,(R) Protracted Pelvis Posture Anteriorly Tilted Hip Posture (L) Externally Rotated,(R) Externally Rotated Knee Posture (L) Genu Valgus,(R) Genu Valgus Ankle/Foot Posture (L) Pronated,(R) Pronated PT-OP-K Range of Motion Start: 09/27/23 16:38 Freq: Status: Active Protocol: Document 09/28/23 09:04 [facility] (Rec: 09/28/23 14:15 [facility] [id number]) Lumbar Spine Range of Motion Lumbar Spine Active ROM Limitations Soft Tissue Tightness,Pain Comments mod decrease all motions Hip Goniometric Range of Motion Hip Right Hip ROM WFL No Flexion w/Knee Flexed 100 Straight Leg Raise 45 Extension 0 Abduction 20 Internal Rotation 10 External Rotation 35 Left Hip ROM WFL No Flexion w/Knee Flexed 100 Straight Leg Raise 55 Extension 0 Abduction 25 Internal Rotation 15 External Rotation 40 Hip ROM Limitations Hip ROM Limitations Soft Tissue Tightness,Pain Knee Goniometric Range of Motion Knee KELSI Knee ROM WFL Yes Ankle and Foot Goniometric Range of Motion Ankle and Foot Left Dorsiflexion with Knee Flexed 5 Dorsiflexion with Knee Extended 0 Plantarflexion 35 Inversion 25 Eversion 10 RIGHT Ankle/Foot ROM WFL No Dorsiflexion with Knee Flexed 5 Dorsiflexion with Knee Extended 0 Plantarflexion 35 Inversion 25 Eversion 10 PT-OP-M Strength Start: 09/27/23 16:38 Freq: Status: Active Protocol: Document 09/28/23 09:04 [facility] (Rec: 09/28/23 14:15 [facility] [id number]) Trunk Strength Trunk Manual Muscle Testing Flexion 2 Poor Extension 2 Poor Core Stabilization poor Hip Strength Hip Manual Muscle Testing kelsi Flexion (L2) 3- Fair- Extension (S1) 3- Fair- Abduction 3- Fair- External Rotation 3+ Fair+ Internal Rotation 3+ Fair+ Knee Strength Knee Manual Muscle Testing kelsi Flexion (S2) 4- Good- Extension (L3) 4- Good- Ankle/Foot Strength Ankle and Foot Manual Muscle Testing kelsi Dorsiflexion (L4) 4- Good- Plantarflexion (S1) 4- Good- Inversion 4- Good- Eversion (S1) 4- Good- PT-OP-Q Treatments Start: 09/27/23 16:38 Freq: Status: Active Protocol: Document 10/11/23 11:25 [facility] (Rec: 10/11/23 12:03 [facility] [id number]) Cardio Equipment Recumbent Elliptical (Biodex) Duration (Minutes) 5 Resistance 1 Seat Position 8 Other denied pain, UE's and LE's Gym Equipment Shuttle Recovery Bilateral Squats Reps/Time next session Unilateral Squats Reps/Time next session Therapeutic Exercises Supine Exercises hamstring set Comments next session gluteal set Reps/Minutes 10x TrA Reps/Minutes 10x supine clam Resistance L2 Reps/Minutes 10x Sitting Exercises ball squeeze Reps/Minutes 10x hamstring curl Equipment Used L1 TB Reps/Minutes 10 Manual Therapy Treatment Taping left knee Comments next session Self-Care/Home Management Treatment Education Patient Education Home Exercise Program Other Education updated written HEP, encouraged ice knee at home after PT core activation and log roll for bed mobility; need further review PT-OP-T Assessment and Plan Start: 09/27/23 16:38 Freq: Status: Active Protocol: Document 10/11/23 11:25 [facility] (Rec: 10/11/23 12:03 [facility] [id number]) Physical Therapy Assessment Impairments Impairments Activity Tolerance,Gait,Pain, ROM,Strength Goals Three Impairment unable to take walks Short Term Goal (STG) Decrease pain and improve activity tolerance sufficient for patient able to walk at least 6 min with single point cane or trekking poles STG Duration 11/11/23 Detention Goal (LTG) Patient will improve walking ability sufficient to go grocery shopping without using motorized cart LTG Duration 12/29/23 One Impairment LEFS-lower extremity functional scale score 46% Short Term Goal (STG) Improve LEFS to at least 60% as measure of improved activity tolerance STG Duration 11/11/23 Detention Goal (LTG) Improve LEFS to at least 70% as measure of improved activity tolerance and quality of life LTG Duration 12/29/23 Two Impairment strength and flexibility impairments bilateral LE's, core Short Term Goal (STG) Patient will be instructed in HEP for purposes of flexibility and strengthening of her LE's STG Duration 11/11/23 Pharmacy Picking Tech Goal (LTG) Patient will be independent and compliant with HEP and demonstrate improvement in strength to at least 4+/5 all LE muscle groups. LTG Duration 12/29/23 Assessment Summary Assessment Patient tolerated Biodex L1 without c/o pain, mod cues for sitting and supine strengthening exercises, updated written HEP. No reaction to KT tape skin test, ran out of time to tape today , will try next session left knee. Physical Therapy Plan Frequency and Duration Frequency of Treatment 2x/Week Duration of treatment (weeks) 12 Plan of Care Start Date 09/28/23 Plan of Care End Date 12/29/23 Therapeutic Interventions Therapeutic Interventions Gait Training,Home Exercise Program,Manual Therapy,Patient /Caregiver Education,Self-Care /Home Management,Soft Tissue Mobilization,Taping, Therapeutic Activities, Therapeutic Exercises Next Visit Focus/Plan Next Note Type Treatment Note Next Visit Plan Continue recumbant elliptical, add hamstring set to HEP, try shuttle leg press and KT tape left knee.
--- NOTE | 2023-10-13 16:20 | PT.OTN ---
Current Diagnoses Primary osteoarthritis, right ankle and foot (10/13/23) Primary osteoarthritis, left ankle and foot (10/13/23) Pain in left knee (10/13/23) Sciatica, right side (10/13/23) Physical Therapy Treatment Note PT-OP-A Visit Information Start: 09/27/23 16:38 Freq: Status: Active Protocol: Document 10/13/23 11:13 [facility] (Rec: 10/13/23 12:00 [facility] [id number]) Out-Patient Physical Therapy Visit Information Visit Information Visit Type Treatment Note Visit Start Time 11:14 Visit Stop Time 11:56 Visit Number 3 Evaluation Information Evaluation Date 09/28/23 PT-OP-B Current Condition Start: 09/27/23 16:38 Freq: Status: Active Protocol: Document 10/13/23 11:13 [facility] (Rec: 10/13/23 12:00 [facility] [id number]) Current Condition History of Current Condition Onset Date 10+ years Current Complaints right hip pain, sciatica, left knee, kelsi ankles History of Current Condition left knee and right hip often feel like they are going to give out when she is standing or walking. When getting out of the care she states her right foot and ankle sometimes hurt so much she can't put weight on it and has to wait. Also has edema left LE (for years). Reports she has gained weight over the years as well and she expresses she knows extra weight contributes . Patient is diabetic and c/o diabetic neuropathty witgh pain soles of her feet. Did aquatic therapy in the past but hasn't. Uses single point cane in right hand, states she is very right handed. Worst problem is standing from sitting; feels pain in knees and hip. 5 years ago getting off bus twisted left knee badly. History of spraining right ankle. Sits in rocking chair most of the day, legs dependent. Has significant swelling left LE with reddish discoloriation mid calf down, hasn't been wearing compression stockings. Can't lay on her sides due to hip pain and shoulder pain kelsi. Has previously done aquatic exercise but not for several years. Prior Treatments and Tests x-rays: left knee, kelsi ankles. Moderate osteoarthritis, history shots left knee with good response. PT-OP-C Subjective Start: 09/27/23 16:38 Freq: Status: Active Protocol: Document 10/13/23 11:13 [facility] (Rec: 10/13/23 12:00 [facility] [id number]) OP-PT Subjective Patient Comments Patient Comments No new c/o. PT-OP-G Mobility & Gait Start: 09/27/23 16:38 Freq: Status: Active Protocol: Document 09/28/23 09:04 [facility] (Rec: 09/28/23 14:15 [facility] [id number]) OP Gait Assessment Gait Gait Assistance Required: Independent Assistive Devices Assistive Device Straight Cane Gait Deviations General Gait Pattern Antalgic,Decreased Stride Length,Decreased Feet Clearance,Flexed Trunk Stair Climbing Evaluation Technique/Endurance Stair Climbing Technique Step to Step PT-OP-H Neuro Start: 09/27/23 16:38 Freq: Status: Active Protocol: Document 09/28/23 09:04 [facility] (Rec: 09/28/23 14:15 [facility] [id number]) Sensation Evaluation Gross Sensation Sensation Description Paresthesia PT-OP-J Posture/Palpation/Skin Start: 09/27/23 16:38 Freq: Status: Active Protocol: Document 09/28/23 09:04 [facility] (Rec: 09/28/23 14:15 [facility] [id number]) Posture Evaluation Position Standing Head/C-Spine Posture Forward Head T-Spine Posture Increased Kyphosis L-Spine Posture Increased Lordosis Shoulder Posture (L) Rounded,(R) Rounded Scapula Posture (L) Protracted,(R) Protracted Pelvis Posture Anteriorly Tilted Hip Posture (L) Externally Rotated,(R) Externally Rotated Knee Posture (L) Genu Valgus,(R) Genu Valgus Ankle/Foot Posture (L) Pronated,(R) Pronated PT-OP-K Range of Motion Start: 09/27/23 16:38 Freq: Status: Active Protocol: Document 09/28/23 09:04 [facility] (Rec: 09/28/23 14:15 [facility] [id number]) Lumbar Spine Range of Motion Lumbar Spine Active ROM Limitations Soft Tissue Tightness,Pain Comments mod decrease all motions Hip Goniometric Range of Motion Hip Right Hip ROM WFL No Flexion w/Knee Flexed 100 Straight Leg Raise 45 Extension 0 Abduction 20 Internal Rotation 10 External Rotation 35 Left Hip ROM WFL No Flexion w/Knee Flexed 100 Straight Leg Raise 55 Extension 0 Abduction 25 Internal Rotation 15 External Rotation 40 Hip ROM Limitations Hip ROM Limitations Soft Tissue Tightness,Pain Knee Goniometric Range of Motion Knee KELSI Knee ROM WFL Yes Ankle and Foot Goniometric Range of Motion Ankle and Foot Left Dorsiflexion with Knee Flexed 5 Dorsiflexion with Knee Extended 0 Plantarflexion 35 Inversion 25 Eversion 10 RIGHT Ankle/Foot ROM WFL No Dorsiflexion with Knee Flexed 5 Dorsiflexion with Knee Extended 0 Plantarflexion 35 Inversion 25 Eversion 10 PT-OP-M Strength Start: 09/27/23 16:38 Freq: Status: Active Protocol: Document 09/28/23 09:04 [facility] (Rec: 09/28/23 14:15 [facility] [id number]) Trunk Strength Trunk Manual Muscle Testing Flexion 2 Poor Extension 2 Poor Core Stabilization poor Hip Strength Hip Manual Muscle Testing kelsi Flexion (L2) 3- Fair- Extension (S1) 3- Fair- Abduction 3- Fair- External Rotation 3+ Fair+ Internal Rotation 3+ Fair+ Knee Strength Knee Manual Muscle Testing kelsi Flexion (S2) 4- Good- Extension (L3) 4- Good- Ankle/Foot Strength Ankle and Foot Manual Muscle Testing kelsi Dorsiflexion (L4) 4- Good- Plantarflexion (S1) 4- Good- Inversion 4- Good- Eversion (S1) 4- Good- PT-OP-Q Treatments Start: 09/27/23 16:38 Freq: Status: Active Protocol: Document 10/13/23 11:13 [facility] (Rec: 10/13/23 12:00 [facility] [id number]) Cardio Equipment Recumbent Elliptical (Biodex) Duration (Minutes) 6 Resistance 1 Seat Position 8 Other denied pain, UE's and LE's Gym Equipment Shuttle Recovery Bilateral Squats Resistance 50 Reps/Time 10x Unilateral Squats Resistance 25 Reps/Time 10x Therapeutic Exercises Supine Exercises bridge Reps/Minutes 10x Comments small lift Short arc quad Reps/Minutes 10x gluteal set Reps/Minutes 10x TrA Reps/Minutes 10x supine clam Resistance L2 Reps/Minutes 10x Sidelying Exercises hip ab Reps/Minutes 10x Comments cues for core activation, neutral LE's Sitting Exercises LAQ Reps/Minutes 10x5 Comments cues for pain-free ROM ball squeeze Reps/Minutes 10x hamstring curl Equipment Used L1 TB Reps/Minutes 10 Standing Exercises chair squat Comments next session calf stretch Reps/Minutes 2x30 Manual Therapy Treatment Consent Patient gave verbal consent for manual Yes treatment Taping left knee Body Location left knee Treatment Focus support and pain reduction Type of Tape KT Skin Inspection intact Comments 2 Y strips 50-75% stretch both sides patella. PT-OP-T Assessment and Plan Start: 09/27/23 16:38 Freq: Status: Active Protocol: Document 10/13/23 11:13 [facility] (Rec: 10/13/23 12:00 [facility] [id number]) Physical Therapy Assessment Impairments Impairments Activity Tolerance,Gait,Pain, ROM,Strength Goals Three Impairment unable to take walks Short Term Goal (STG) Decrease pain and improve activity tolerance sufficient for patient able to walk at least 6 min with single point cane or trekking poles STG Duration 11/11/23 Jail Goal (LTG) Patient will improve walking ability sufficient to go grocery shopping without using motorized cart LTG Duration 12/29/23 One Impairment LEFS-lower extremity functional scale score 46% Short Term Goal (STG) Improve LEFS to at least 60% as measure of improved activity tolerance STG Duration 11/11/23 Parasitologist Goal (LTG) Improve LEFS to at least 70% as measure of improved activity tolerance and quality of life LTG Duration 12/29/23 Two Impairment strength and flexibility impairments bilateral LE's, core Short Term Goal (STG) Patient will be instructed in HEP for purposes of flexibility and strengthening of her LE's STG Duration 11/11/23 Parasitologist Goal (LTG) Patient will be independent and compliant with HEP and demonstrate improvement in strength to at least 4+/5 all LE muscle groups. LTG Duration 12/29/23 Assessment Summary Assessment Trial KT taping today. Gentle progression of ther ex for core and LE strengthening with fair tolerance, frequent rest breaks reqwuired, mod cues for core activation and correct performance Physical Therapy Plan Frequency and Duration Frequency of Treatment 2x/Week Duration of treatment (weeks) 12 Plan of Care Start Date 09/28/23 Plan of Care End Date 12/29/23 Therapeutic Interventions Therapeutic Interventions Gait Training,Home Exercise Program,Manual Therapy,Patient /Caregiver Education,Self-Care /Home Management,Soft Tissue Mobilization,Taping, Therapeutic Activities, Therapeutic Exercises Next Visit Focus/Plan Next Note Type Treatment Note Next Visit Plan Progress ther ex as tolerated including trial chair squat with emphasis on on hip hinge.
--- NOTE | 2023-10-18 10:46 | PT.OTN ---
Current Diagnoses Primary osteoarthritis, right ankle and foot (10/18/23) Primary osteoarthritis, left ankle and foot (10/18/23) Pain in left knee (10/18/23) Sciatica, right side (10/18/23) Physical Therapy Treatment Note PT-OP-A Visit Information Start: 09/27/23 16:38 Freq: Status: Active Protocol: Document 10/18/23 08:04 AB (Rec: 10/18/23 10:45 AB [id number]) Out-Patient Physical Therapy Visit Information Visit Information Visit Type Treatment Note Visit Note Access Code: [email or web address] Visit Start Time 09:04 Visit Stop Time 09:50 Visit Number 4 Number of APPAREL SALES LEADER Visits 1 Evaluation Information Evaluation Date 09/28/23 PT-OP-B Current Condition Start: 09/27/23 16:38 Freq: Status: Active Protocol: Document 10/13/23 11:13 SAK (Rec: 10/13/23 12:00 SAK [id number]) Current Condition History of Current Condition Onset Date 10+ years Current Complaints right hip pain, sciatica, left knee, kelsi ankles History of Current Condition left knee and right hip often feel like they are going to give out when she is standing or walking. When getting out of the care she states her right foot and ankle sometimes hurt so much she can't put weight on it and has to wait. Also has edema left LE (for years). Reports she has gained weight over the years as well and she expresses she knows extra weight contributes . Patient is diabetic and c/o diabetic neuropathty witgh pain soles of her feet. Did aquatic therapy in the past but hasn't. Uses single point cane in right hand, states she is very right handed. Worst problem is standing from sitting; feels pain in knees and hip. 5 years ago getting off bus twisted left knee badly. History of spraining right ankle. Sits in rocking chair most of the day, legs dependent. Has significant swelling left LE with reddish discoloriation mid calf down, hasn't been wearing compression stockings. Can't lay on her sides due to hip pain and shoulder pain kelsi. Has previously done aquatic exercise but not for several years. Prior Treatments and Tests x-rays: left knee, kelsi ankles. Moderate osteoarthritis, history shots left knee with good response. PT-OP-C Subjective Start: 09/27/23 16:38 Freq: Status: Active Protocol: Document 10/18/23 08:04 AB (Rec: 10/18/23 10:45 AB [id number]) OP-PT Subjective Patient Comments Patient Comments Patient reports she was sore the day after performing her HEP. Patient reports she didn' t perform the lying down exercises as couch wasn't cleared, but it is now. Patient rates pain 4-5/10 left foot. Patient reports the tape worked. PT-OP-G Mobility & Gait Start: 09/27/23 16:38 Freq: Status: Active Protocol: Document 09/28/23 09:04 SAK (Rec: 09/28/23 14:15 SAK [id number]) OP Gait Assessment Gait Gait Assistance Required: Independent Assistive Devices Assistive Device Straight Cane Gait Deviations General Gait Pattern Antalgic,Decreased Stride Length,Decreased Feet Clearance,Flexed Trunk Stair Climbing Evaluation Technique/Endurance Stair Climbing Technique Step to Step PT-OP-H Neuro Start: 09/27/23 16:38 Freq: Status: Active Protocol: Document 09/28/23 09:04 SAK (Rec: 09/28/23 14:15 SAK [id number]) Sensation Evaluation Gross Sensation Sensation Description Paresthesia PT-OP-J Posture/Palpation/Skin Start: 09/27/23 16:38 Freq: Status: Active Protocol: Document 09/28/23 09:04 SAK (Rec: 09/28/23 14:15 SAK [id number]) Posture Evaluation Position Standing Head/C-Spine Posture Forward Head T-Spine Posture Increased Kyphosis L-Spine Posture Increased Lordosis Shoulder Posture (L) Rounded,(R) Rounded Scapula Posture (L) Protracted,(R) Protracted Pelvis Posture Anteriorly Tilted Hip Posture (L) Externally Rotated,(R) Externally Rotated Knee Posture (L) Genu Valgus,(R) Genu Valgus Ankle/Foot Posture (L) Pronated,(R) Pronated PT-OP-K Range of Motion Start: 09/27/23 16:38 Freq: Status: Active Protocol: Document 09/28/23 09:04 SAK (Rec: 09/28/23 14:15 SAK [id number]) Lumbar Spine Range of Motion Lumbar Spine Active ROM Limitations Soft Tissue Tightness,Pain Comments mod decrease all motions Hip Goniometric Range of Motion Hip Right Hip ROM WFL No Flexion w/Knee Flexed 100 Straight Leg Raise 45 Extension 0 Abduction 20 Internal Rotation 10 External Rotation 35 Left Hip ROM WFL No Flexion w/Knee Flexed 100 Straight Leg Raise 55 Extension 0 Abduction 25 Internal Rotation 15 External Rotation 40 Hip ROM Limitations Hip ROM Limitations Soft Tissue Tightness,Pain Knee Goniometric Range of Motion Knee KELSI Knee ROM WFL Yes Ankle and Foot Goniometric Range of Motion Ankle and Foot Left Dorsiflexion with Knee Flexed 5 Dorsiflexion with Knee Extended 0 Plantarflexion 35 Inversion 25 Eversion 10 RIGHT Ankle/Foot ROM WFL No Dorsiflexion with Knee Flexed 5 Dorsiflexion with Knee Extended 0 Plantarflexion 35 Inversion 25 Eversion 10 PT-OP-M Strength Start: 09/27/23 16:38 Freq: Status: Active Protocol: Document 09/28/23 09:04 SAK (Rec: 09/28/23 14:15 SAK [id number]) Trunk Strength Trunk Manual Muscle Testing Flexion 2 Poor Extension 2 Poor Core Stabilization poor Hip Strength Hip Manual Muscle Testing kelsi Flexion (L2) 3- Fair- Extension (S1) 3- Fair- Abduction 3- Fair- External Rotation 3+ Fair+ Internal Rotation 3+ Fair+ Knee Strength Knee Manual Muscle Testing kelsi Flexion (S2) 4- Good- Extension (L3) 4- Good- Ankle/Foot Strength Ankle and Foot Manual Muscle Testing kelsi Dorsiflexion (L4) 4- Good- Plantarflexion (S1) 4- Good- Inversion 4- Good- Eversion (S1) 4- Good- PT-OP-Q Treatments Start: 09/27/23 16:38 Freq: Status: Active Protocol: Document 10/18/23 08:04 AB (Rec: 10/18/23 10:45 AB [id number]) Therapeutic Exercises Supine Exercises bridge Reps/Minutes 10x Comments small lift gluteal set Reps/Minutes 10x TrA Reps/Minutes 10x Comments Verbal cues to avoid holding breath supine clam Resistance L2 Reps/Minutes X15 Sitting Exercises seated hip abduction Sitting Exercise Name HEP for one minute hold Side bilateral Resistance level one band Reps/Minutes X15 without hold and one one minute hold Comments verbal HEs DF PF Sitting Exercise Name HEP for DF Side bilateral Reps/Minutes X15 each Comments verbal cues LAQ Reps/Minutes 10x5 Comments cues for pain-free ROM ball squeeze Reps/Minutes 10x hamstring curl Equipment Used L1 TB Reps/Minutes 10 Standing Exercises calf stretch Standing Exercise Name gastroc and soleus Reps/Minutes 2x30 each LE each stretch PT-OP-T Assessment and Plan Start: 09/27/23 16:38 Freq: Status: Active Protocol: Document 10/18/23 08:04 AB (Rec: 10/18/23 10:45 AB [id number]) Physical Therapy Assessment Goals Three Impairment unable to take walks Short Term Goal (STG) Decrease pain and improve activity tolerance sufficient for patient able to walk at least 6 min with single point cane or trekking poles STG Duration 11/11/23 Care Home Goal (LTG) Patient will improve walking ability sufficient to go grocery shopping without using motorized cart LTG Duration 12/29/23 One Impairment LEFS-lower extremity functional scale score 46% Short Term Goal (STG) Improve LEFS to at least 60% as measure of improved activity tolerance STG Duration 11/11/23 Motor And Chassis Inspector Goal (LTG) Improve LEFS to at least 70% as measure of improved activity tolerance and quality of life LTG Duration 12/29/23 Two Impairment strength and flexibility impairments bilateral LE's, core Short Term Goal (STG) Patient will be instructed in HEP for purposes of flexibility and strengthening of her LE's STG Duration 11/11/23 Care Home Goal (LTG) Patient will be independent and compliant with HEP and demonstrate improvement in strength to at least 4+/5 all LE muscle groups. LTG Duration 12/29/23 Assessment Summary Assessment Patricial had increased difficulty positioning feet for standing calf stretch, but was able to self correct post initial stretch and verbal cues for correction. Patient also did not have place to tie band for HS curl seated, performed seated with band around ankles/knees extended, handout given. Patient reports ache and pain here and there end of session, but nothing major. Physical Therapy Plan Frequency and Duration Frequency of Treatment 2x/Week Duration of treatment (weeks) 12 Plan of Care Start Date 09/28/23 Plan of Care End Date 12/29/23 Next Visit Focus/Plan Next Note Type Treatment Note Next Visit Plan Progress ther ex as tolerated including trial chair squat with emphasis on on hip hinge. Possibly tape prior to hip hinge/chair squat.
--- NOTE | 2023-10-20 16:44 | PT.OTN ---
Current Diagnoses Primary osteoarthritis, right ankle and foot (10/20/23) Primary osteoarthritis, left ankle and foot (10/20/23) Pain in left knee (10/20/23) Sciatica, right side (10/20/23) Physical Therapy Treatment Note PT-OP-A Visit Information Start: 09/27/23 16:38 Freq: Status: Active Protocol: Document 10/20/23 12:59 AB (Rec: 10/20/23 16:43 AB [id number]) Out-Patient Physical Therapy Visit Information Visit Information Visit Type Treatment Note Visit Note Access Code: [email or web address] Visit Start Time 13:50 Visit Stop Time 14:36 Visit Number 5 Number of BOARD CATCHER Visits 2 Evaluation Information Evaluation Date 09/28/23 PT-OP-B Current Condition Start: 09/27/23 16:38 Freq: Status: Active Protocol: Document 10/13/23 11:13 SAK (Rec: 10/13/23 12:00 SAK [id number]) Current Condition History of Current Condition Onset Date 10+ years Current Complaints right hip pain, sciatica, left knee, kelsi ankles History of Current Condition left knee and right hip often feel like they are going to give out when she is standing or walking. When getting out of the care she states her right foot and ankle sometimes hurt so much she can't put weight on it and has to wait. Also has edema left LE (for years). Reports she has gained weight over the years as well and she expresses she knows extra weight contributes . Patient is diabetic and c/o diabetic neuropathty witgh pain soles of her feet. Did aquatic therapy in the past but hasn't. Uses single point cane in right hand, states she is very right handed. Worst problem is standing from sitting; feels pain in knees and hip. 5 years ago getting off bus twisted left knee badly. History of spraining right ankle. Sits in rocking chair most of the day, legs dependent. Has significant swelling left LE with reddish discoloriation mid calf down, hasn't been wearing compression stockings. Can't lay on her sides due to hip pain and shoulder pain kelsi. Has previously done aquatic exercise but not for several years. Prior Treatments and Tests x-rays: left knee, kelsi ankles. Moderate osteoarthritis, history shots left knee with good response. PT-OP-C Subjective Start: 09/27/23 16:38 Freq: Status: Active Protocol: Document 10/20/23 12:59 AB (Rec: 10/20/23 16:43 AB [id number]) OP-PT Subjective Patient Comments Patient Comments Patient reports she is doing better, comment she still does get some pain post standing up from a chair after sitting for a long time. Patient reports reports the knee still feels iffy. ( left knee ) Left knee lacking 10 deg extension supine AROM start of session PT-OP-G Mobility & Gait Start: 09/27/23 16:38 Freq: Status: Active Protocol: Document 09/28/23 09:04 SAK (Rec: 09/28/23 14:15 SAK [id number]) OP Gait Assessment Gait Gait Assistance Required: Independent Assistive Devices Assistive Device Straight Cane Gait Deviations General Gait Pattern Antalgic,Decreased Stride Length,Decreased Feet Clearance,Flexed Trunk Stair Climbing Evaluation Technique/Endurance Stair Climbing Technique Step to Step PT-OP-H Neuro Start: 09/27/23 16:38 Freq: Status: Active Protocol: Document 09/28/23 09:04 SAK (Rec: 09/28/23 14:15 SAK [id number]) Sensation Evaluation Gross Sensation Sensation Description Paresthesia PT-OP-J Posture/Palpation/Skin Start: 09/27/23 16:38 Freq: Status: Active Protocol: Document 09/28/23 09:04 SAK (Rec: 09/28/23 14:15 SAK [id number]) Posture Evaluation Position Standing Head/C-Spine Posture Forward Head T-Spine Posture Increased Kyphosis L-Spine Posture Increased Lordosis Shoulder Posture (L) Rounded,(R) Rounded Scapula Posture (L) Protracted,(R) Protracted Pelvis Posture Anteriorly Tilted Hip Posture (L) Externally Rotated,(R) Externally Rotated Knee Posture (L) Genu Valgus,(R) Genu Valgus Ankle/Foot Posture (L) Pronated,(R) Pronated PT-OP-K Range of Motion Start: 09/27/23 16:38 Freq: Status: Active Protocol: Document 09/28/23 09:04 SAK (Rec: 09/28/23 14:15 SAK [id number]) Lumbar Spine Range of Motion Lumbar Spine Active ROM Limitations Soft Tissue Tightness,Pain Comments mod decrease all motions Hip Goniometric Range of Motion Hip Right Hip ROM WFL No Flexion w/Knee Flexed 100 Straight Leg Raise 45 Extension 0 Abduction 20 Internal Rotation 10 External Rotation 35 Left Hip ROM WFL No Flexion w/Knee Flexed 100 Straight Leg Raise 55 Extension 0 Abduction 25 Internal Rotation 15 External Rotation 40 Hip ROM Limitations Hip ROM Limitations Soft Tissue Tightness,Pain Knee Goniometric Range of Motion Knee KELSI Knee ROM WFL Yes Ankle and Foot Goniometric Range of Motion Ankle and Foot Left Dorsiflexion with Knee Flexed 5 Dorsiflexion with Knee Extended 0 Plantarflexion 35 Inversion 25 Eversion 10 RIGHT Ankle/Foot ROM WFL No Dorsiflexion with Knee Flexed 5 Dorsiflexion with Knee Extended 0 Plantarflexion 35 Inversion 25 Eversion 10 PT-OP-M Strength Start: 09/27/23 16:38 Freq: Status: Active Protocol: Document 09/28/23 09:04 SAK (Rec: 09/28/23 14:15 SAK [id number]) Trunk Strength Trunk Manual Muscle Testing Flexion 2 Poor Extension 2 Poor Core Stabilization poor Hip Strength Hip Manual Muscle Testing kelsi Flexion (L2) 3- Fair- Extension (S1) 3- Fair- Abduction 3- Fair- External Rotation 3+ Fair+ Internal Rotation 3+ Fair+ Knee Strength Knee Manual Muscle Testing kelsi Flexion (S2) 4- Good- Extension (L3) 4- Good- Ankle/Foot Strength Ankle and Foot Manual Muscle Testing kelsi Dorsiflexion (L4) 4- Good- Plantarflexion (S1) 4- Good- Inversion 4- Good- Eversion (S1) 4- Good- PT-OP-Q Treatments Start: 09/27/23 16:38 Freq: Status: Active Protocol: Document 10/20/23 12:59 AB (Rec: 10/20/23 16:43 AB [id number]) Therapeutic Exercises Supine Exercises SLR Side left Reps/Minutes X10 Comments VC Sitting Exercises Seated knee extension stretch Sitting Exercise Name LE on mat at chair height Side left Reps/Minutes 4 min with X 10 QS during stretch Comments Patient ed importance of pillow under ankle to floate heel core strengthening Sitting Exercise Name 1. ball, 2. edge of mat with band Reps/Minutes X2-3 eac Comments 1. PT ed to avoid using ball at home with a full sit up, 2VC to note core seated hip abduction Sitting Exercise Name HEP for one minute hold Side bilateral Resistance level one band Reps/Minutes X15 without hold and one one minute hold Comments verbal HEs Standing Exercises sit to stand Standing Exercise Name hip hinge Side bilateral Reps/Minutes X6 and X3 Manual Therapy Treatment Soft Tissue Mobilization left knee Body Location hamstring Mobilization Type Cross-Friction,Rolling Intensity/Depth Superficial Body Position Hooklying Comments superficial to moderate Taping left knee Body Location left knee Treatment Focus support and pain reduction Type of Tape KT Skin Inspection intact Comments 2 Y strips 50-75% stretch both sides patella. Also I strips fat pad medial and lat 70% stretch PT-OP-T Assessment and Plan Start: 09/27/23 16:38 Freq: Status: Active Protocol: Document 10/20/23 12:59 AB (Rec: 10/20/23 16:43 AB [id number]) Physical Therapy Assessment Goals Three Impairment unable to take walks Short Term Goal (STG) Decrease pain and improve activity tolerance sufficient for patient able to walk at least 6 min with single point cane or trekking poles STG Duration 11/11/23 Blocker Polishing Goal (LTG) Patient will improve walking ability sufficient to go grocery shopping without using motorized cart LTG Duration 12/29/23 One Impairment LEFS-lower extremity functional scale score 46% Short Term Goal (STG) Improve LEFS to at least 60% as measure of improved activity tolerance STG Duration 11/11/23 Fdc Goal (LTG) Improve LEFS to at least 70% as measure of improved activity tolerance and quality of life LTG Duration 12/29/23 Two Impairment strength and flexibility impairments bilateral LE's, core Short Term Goal (STG) Patient will be instructed in HEP for purposes of flexibility and strengthening of her LE's STG Duration 11/11/23 Fdc Goal (LTG) Patient will be independent and compliant with HEP and demonstrate improvement in strength to at least 4+/5 all LE muscle groups. LTG Duration 12/29/23 Assessment Summary Assessment Lolis reports having no knee pain ambulating out of session . Physical Therapy Plan Frequency and Duration Frequency of Treatment 2x/Week Duration of treatment (weeks) 12 Plan of Care Start Date 09/28/23 Plan of Care End Date 12/29/23 Next Visit Focus/Plan Next Note Type Treatment Note Next Visit Plan Progress ther ex as tolerated including trial chair squat with emphasis on on hip hinge. Possibly tape prior to hip hinge/chair squat. Possibly seated LE ex on ball for core and LE
--- NOTE | 2023-10-25 12:31 | PT.OTN ---
Current Diagnoses Primary osteoarthritis, right ankle and foot (10/25/23) Primary osteoarthritis, left ankle and foot (10/25/23) Pain in left knee (10/25/23) Sciatica, right side (10/25/23) Physical Therapy Treatment Note PT-OP-A Visit Information Start: 09/27/23 16:38 Freq: Status: Active Protocol: Document 10/25/23 09:09 [facility] (Rec: 10/25/23 09:49 [facility] [id number]) Out-Patient Physical Therapy Visit Information Visit Information Visit Type Treatment Note Visit Start Time 09:04 Visit Stop Time 09:45 Visit Number 6 Number of CARPET MEASURER Visits 0 Evaluation Information Evaluation Date 09/28/23 PT-OP-B Current Condition Start: 09/27/23 16:38 Freq: Status: Active Protocol: Document 10/13/23 11:13 [facility] (Rec: 10/13/23 12:00 [facility] [id number]) Current Condition History of Current Condition Onset Date 10+ years Current Complaints right hip pain, sciatica, left knee, kelsi ankles History of Current Condition left knee and right hip often feel like they are going to give out when she is standing or walking. When getting out of the care she states her right foot and ankle sometimes hurt so much she can't put weight on it and has to wait. Also has edema left LE (for years). Reports she has gained weight over the years as well and she expresses she knows extra weight contributes . Patient is diabetic and c/o diabetic neuropathty witgh pain soles of her feet. Did aquatic therapy in the past but hasn't. Uses single point cane in right hand, states she is very right handed. Worst problem is standing from sitting; feels pain in knees and hip. 5 years ago getting off bus twisted left knee badly. History of spraining right ankle. Sits in rocking chair most of the day, legs dependent. Has significant swelling left LE with reddish discoloriation mid calf down, hasn't been wearing compression stockings. Can't lay on her sides due to hip pain and shoulder pain kelsi. Has previously done aquatic exercise but not for several years. Prior Treatments and Tests x-rays: left knee, kelsi ankles. Moderate osteoarthritis, history shots left knee with good response. PT-OP-C Subjective Start: 09/27/23 16:38 Freq: Status: Active Protocol: Document 10/25/23 09:09 [facility] (Rec: 10/25/23 09:49 [facility] [id number]) OP-PT Subjective Patient Comments Patient Comments KT tape last time caused pain left knee, otherwise no pain with exercises. PT-OP-G Mobility & Gait Start: 09/27/23 16:38 Freq: Status: Active Protocol: Document 09/28/23 09:04 [facility] (Rec: 09/28/23 14:15 [facility] [id number]) OP Gait Assessment Gait Gait Assistance Required: Independent Assistive Devices Assistive Device Straight Cane Gait Deviations General Gait Pattern Antalgic,Decreased Stride Length,Decreased Feet Clearance,Flexed Trunk Stair Climbing Evaluation Technique/Endurance Stair Climbing Technique Step to Step PT-OP-H Neuro Start: 09/27/23 16:38 Freq: Status: Active Protocol: Document 09/28/23 09:04 [facility] (Rec: 09/28/23 14:15 [facility] [id number]) Sensation Evaluation Gross Sensation Sensation Description Paresthesia PT-OP-J Posture/Palpation/Skin Start: 09/27/23 16:38 Freq: Status: Active Protocol: Document 09/28/23 09:04 [facility] (Rec: 09/28/23 14:15 [facility] [id number]) Posture Evaluation Position Standing Head/C-Spine Posture Forward Head T-Spine Posture Increased Kyphosis L-Spine Posture Increased Lordosis Shoulder Posture (L) Rounded,(R) Rounded Scapula Posture (L) Protracted,(R) Protracted Pelvis Posture Anteriorly Tilted Hip Posture (L) Externally Rotated,(R) Externally Rotated Knee Posture (L) Genu Valgus,(R) Genu Valgus Ankle/Foot Posture (L) Pronated,(R) Pronated PT-OP-K Range of Motion Start: 09/27/23 16:38 Freq: Status: Active Protocol: Document 09/28/23 09:04 [facility] (Rec: 09/28/23 14:15 [facility] [id number]) Lumbar Spine Range of Motion Lumbar Spine Active ROM Limitations Soft Tissue Tightness,Pain Comments mod decrease all motions Hip Goniometric Range of Motion Hip Right Hip ROM WFL No Flexion w/Knee Flexed 100 Straight Leg Raise 45 Extension 0 Abduction 20 Internal Rotation 10 External Rotation 35 Left Hip ROM WFL No Flexion w/Knee Flexed 100 Straight Leg Raise 55 Extension 0 Abduction 25 Internal Rotation 15 External Rotation 40 Hip ROM Limitations Hip ROM Limitations Soft Tissue Tightness,Pain Knee Goniometric Range of Motion Knee KELSI Knee ROM WFL Yes Ankle and Foot Goniometric Range of Motion Ankle and Foot Left Dorsiflexion with Knee Flexed 5 Dorsiflexion with Knee Extended 0 Plantarflexion 35 Inversion 25 Eversion 10 RIGHT Ankle/Foot ROM WFL No Dorsiflexion with Knee Flexed 5 Dorsiflexion with Knee Extended 0 Plantarflexion 35 Inversion 25 Eversion 10 PT-OP-M Strength Start: 09/27/23 16:38 Freq: Status: Active Protocol: Document 09/28/23 09:04 [facility] (Rec: 09/28/23 14:15 [facility] [id number]) Trunk Strength Trunk Manual Muscle Testing Flexion 2 Poor Extension 2 Poor Core Stabilization poor Hip Strength Hip Manual Muscle Testing kelsi Flexion (L2) 3- Fair- Extension (S1) 3- Fair- Abduction 3- Fair- External Rotation 3+ Fair+ Internal Rotation 3+ Fair+ Knee Strength Knee Manual Muscle Testing kelsi Flexion (S2) 4- Good- Extension (L3) 4- Good- Ankle/Foot Strength Ankle and Foot Manual Muscle Testing kelsi Dorsiflexion (L4) 4- Good- Plantarflexion (S1) 4- Good- Inversion 4- Good- Eversion (S1) 4- Good- PT-OP-Q Treatments Start: 09/27/23 16:38 Freq: Status: Active Protocol: Document 10/25/23 09:09 [facility] (Rec: 10/25/23 09:49 [facility] [id number]) Cardio Equipment Recumbent Elliptical (Biodex) Duration (Minutes) 4 Resistance 1 Seat Position 7 Other pain first min then went away, came back Gym Equipment Shuttle Recovery Bilateral Squats Resistance 50 Reps/Time 10x Unilateral Squats Resistance 25 Reps/Time 10x Therapeutic Exercises Supine Exercises SLR Side left Reps/Minutes X10 Comments VC bridge Reps/Minutes 10x Comments small lift Short arc quad Reps/Minutes 10x hamstring set Supine Exercise Name added to HEP Equipment Used bolster Reps/Minutes 10x5 Sidelying Exercises clam Comments next session hip ab Reps/Minutes 5x Comments cues for alignment and core activation Sitting Exercises hamstring curl Equipment Used L1 TB Reps/Minutes 10 Manual Therapy Treatment Soft Tissue Mobilization left knee Comments instructed in use of rolling pin quads, ITB Taping left knee Body Location left knee Treatment Focus support and pain reduction Type of Tape KT Skin Inspection intact Comments 2 Y strips 50-75% stretch both sides patella. PT-OP-T Assessment and Plan Start: 09/27/23 16:38 Freq: Status: Active Protocol: Document 10/25/23 09:09 [facility] (Rec: 10/25/23 09:49 [facility] [id number]) Physical Therapy Assessment Goals Three Impairment unable to take walks Short Term Goal (STG) Decrease pain and improve activity tolerance sufficient for patient able to walk at least 6 min with single point cane or trekking poles STG Duration 11/11/23 Instructor Hairspring Goal (LTG) Patient will improve walking ability sufficient to go grocery shopping without using motorized cart LTG Duration 12/29/23 One Impairment LEFS-lower extremity functional scale score 46% Short Term Goal (STG) Improve LEFS to at least 60% as measure of improved activity tolerance STG Duration 11/11/23 Instructor Hairspring Goal (LTG) Improve LEFS to at least 70% as measure of improved activity tolerance and quality of life LTG Duration 12/29/23 Two Impairment strength and flexibility impairments bilateral LE's, core Short Term Goal (STG) Patient will be instructed in HEP for purposes of flexibility and strengthening of her LE's STG Duration 11/11/23 Senior Living Goal (LTG) Patient will be independent and compliant with HEP and demonstrate improvement in strength to at least 4+/5 all LE muscle groups. LTG Duration 12/29/23 Assessment Summary Assessment Patient with increased pain today, added to HEP primarily isometrics with good radha though reported some pain as left session today. Simplified KT tape to 2 Y strips today. Physical Therapy Plan Frequency and Duration Frequency of Treatment 2x/Week Duration of treatment (weeks) 12 Plan of Care Start Date 09/28/23 Plan of Care End Date 12/29/23 Therapeutic Interventions Therapeutic Interventions Gait Training,Home Exercise Program,Manual Therapy,Patient /Caregiver Education,Self-Care /Home Management,Soft Tissue Mobilization,Taping, Therapeutic Activities, Therapeutic Exercises Next Visit Focus/Plan Next Note Type Treatment Note Next Visit Plan Progress ther ex as tolerated including trial chair squat with emphasis on on hip hinge. Possibly tape prior to hip hinge/chair squat. Seated core ex on ball, clamshell.
--- NOTE | 2023-10-26 12:23 | PT.OTN ---
Current Diagnoses Primary osteoarthritis, right ankle and foot (10/25/23) Primary osteoarthritis, left ankle and foot (10/25/23) Pain in left knee (10/25/23) Sciatica, right side (10/25/23) Physical Therapy Treatment Note PT-OP-A Visit Information Start: 09/27/23 16:38 Freq: Status: Active Protocol: Document 10/25/23 09:09 [facility] (Rec: 10/25/23 09:49 [facility] [id number]) Out-Patient Physical Therapy Visit Information Visit Information Visit Type Treatment Note Visit Start Time 09:04 Visit Stop Time 09:45 Visit Number 6 Number of CREMATORY ATTENDANT Visits 0 Evaluation Information Evaluation Date 09/28/23 PT-OP-B Current Condition Start: 09/27/23 16:38 Freq: Status: Active Protocol: Document 10/13/23 11:13 [facility] (Rec: 10/13/23 12:00 [facility] [id number]) Current Condition History of Current Condition Onset Date 10+ years Current Complaints right hip pain, sciatica, left knee, kelsi ankles History of Current Condition left knee and right hip often feel like they are going to give out when she is standing or walking. When getting out of the care she states her right foot and ankle sometimes hurt so much she can't put weight on it and has to wait. Also has edema left LE (for years). Reports she has gained weight over the years as well and she expresses she knows extra weight contributes . Patient is diabetic and c/o diabetic neuropathty witgh pain soles of her feet. Did aquatic therapy in the past but hasn't. Uses single point cane in right hand, states she is very right handed. Worst problem is standing from sitting; feels pain in knees and hip. 5 years ago getting off bus twisted left knee badly. History of spraining right ankle. Sits in rocking chair most of the day, legs dependent. Has significant swelling left LE with reddish discoloriation mid calf down, hasn't been wearing compression stockings. Can't lay on her sides due to hip pain and shoulder pain kelsi. Has previously done aquatic exercise but not for several years. Prior Treatments and Tests x-rays: left knee, kelsi ankles. Moderate osteoarthritis, history shots left knee with good response. PT-OP-C Subjective Start: 09/27/23 16:38 Freq: Status: Active Protocol: Document 10/25/23 09:09 [facility] (Rec: 10/25/23 09:49 [facility] [id number]) OP-PT Subjective Patient Comments Patient Comments KT tape last time caused pain left knee, otherwise no pain with exercises. PT-OP-G Mobility & Gait Start: 09/27/23 16:38 Freq: Status: Active Protocol: Document 09/28/23 09:04 [facility] (Rec: 09/28/23 14:15 [facility] [id number]) OP Gait Assessment Gait Gait Assistance Required: Independent Assistive Devices Assistive Device Straight Cane Gait Deviations General Gait Pattern Antalgic,Decreased Stride Length,Decreased Feet Clearance,Flexed Trunk Stair Climbing Evaluation Technique/Endurance Stair Climbing Technique Step to Step PT-OP-H Neuro Start: 09/27/23 16:38 Freq: Status: Active Protocol: Document 09/28/23 09:04 [facility] (Rec: 09/28/23 14:15 [facility] [id number]) Sensation Evaluation Gross Sensation Sensation Description Paresthesia PT-OP-J Posture/Palpation/Skin Start: 09/27/23 16:38 Freq: Status: Active Protocol: Document 09/28/23 09:04 [facility] (Rec: 09/28/23 14:15 [facility] [id number]) Posture Evaluation Position Standing Head/C-Spine Posture Forward Head T-Spine Posture Increased Kyphosis L-Spine Posture Increased Lordosis Shoulder Posture (L) Rounded,(R) Rounded Scapula Posture (L) Protracted,(R) Protracted Pelvis Posture Anteriorly Tilted Hip Posture (L) Externally Rotated,(R) Externally Rotated Knee Posture (L) Genu Valgus,(R) Genu Valgus Ankle/Foot Posture (L) Pronated,(R) Pronated PT-OP-K Range of Motion Start: 09/27/23 16:38 Freq: Status: Active Protocol: Document 09/28/23 09:04 [facility] (Rec: 09/28/23 14:15 [facility] [id number]) Lumbar Spine Range of Motion Lumbar Spine Active ROM Limitations Soft Tissue Tightness,Pain Comments mod decrease all motions Hip Goniometric Range of Motion Hip Right Hip ROM WFL No Flexion w/Knee Flexed 100 Straight Leg Raise 45 Extension 0 Abduction 20 Internal Rotation 10 External Rotation 35 Left Hip ROM WFL No Flexion w/Knee Flexed 100 Straight Leg Raise 55 Extension 0 Abduction 25 Internal Rotation 15 External Rotation 40 Hip ROM Limitations Hip ROM Limitations Soft Tissue Tightness,Pain Knee Goniometric Range of Motion Knee KELSI Knee ROM WFL Yes Ankle and Foot Goniometric Range of Motion Ankle and Foot Left Dorsiflexion with Knee Flexed 5 Dorsiflexion with Knee Extended 0 Plantarflexion 35 Inversion 25 Eversion 10 RIGHT Ankle/Foot ROM WFL No Dorsiflexion with Knee Flexed 5 Dorsiflexion with Knee Extended 0 Plantarflexion 35 Inversion 25 Eversion 10 PT-OP-M Strength Start: 09/27/23 16:38 Freq: Status: Active Protocol: Document 09/28/23 09:04 [facility] (Rec: 09/28/23 14:15 [facility] [id number]) Trunk Strength Trunk Manual Muscle Testing Flexion 2 Poor Extension 2 Poor Core Stabilization poor Hip Strength Hip Manual Muscle Testing kelsi Flexion (L2) 3- Fair- Extension (S1) 3- Fair- Abduction 3- Fair- External Rotation 3+ Fair+ Internal Rotation 3+ Fair+ Knee Strength Knee Manual Muscle Testing kelsi Flexion (S2) 4- Good- Extension (L3) 4- Good- Ankle/Foot Strength Ankle and Foot Manual Muscle Testing kelsi Dorsiflexion (L4) 4- Good- Plantarflexion (S1) 4- Good- Inversion 4- Good- Eversion (S1) 4- Good- PT-OP-Q Treatments Start: 09/27/23 16:38 Freq: Status: Active Protocol: Document 10/25/23 09:09 [facility] (Rec: 10/25/23 09:49 [facility] [id number]) Cardio Equipment Recumbent Elliptical (Biodex) Duration (Minutes) 4 Resistance 1 Seat Position 7 Other pain first min then went away, came back Gym Equipment Shuttle Recovery Bilateral Squats Resistance 50 Reps/Time 10x Unilateral Squats Resistance 25 Reps/Time 10x Therapeutic Exercises Supine Exercises SLR Side left Reps/Minutes X10 Comments VC bridge Reps/Minutes 10x Comments small lift Short arc quad Reps/Minutes 10x hamstring set Supine Exercise Name added to HEP Equipment Used bolster Reps/Minutes 10x5 Sidelying Exercises clam Comments next session hip ab Reps/Minutes 5x Comments cues for alignment and core activation Sitting Exercises hamstring curl Equipment Used L1 TB Reps/Minutes 10 Manual Therapy Treatment Soft Tissue Mobilization left knee Comments instructed in use of rolling pin quads, ITB Taping left knee Body Location left knee Treatment Focus support and pain reduction Type of Tape KT Skin Inspection intact Comments 2 Y strips 50-75% stretch both sides patella. PT-OP-T Assessment and Plan Start: 09/27/23 16:38 Freq: Status: Active Protocol: Document 10/25/23 09:09 [facility] (Rec: 10/25/23 09:49 [facility] [id number]) Physical Therapy Assessment Goals Three Impairment unable to take walks Short Term Goal (STG) Decrease pain and improve activity tolerance sufficient for patient able to walk at least 6 min with single point cane or trekking poles STG Duration 11/11/23 Electroencephalograph Technician Goal (LTG) Patient will improve walking ability sufficient to go grocery shopping without using motorized cart LTG Duration 12/29/23 One Impairment LEFS-lower extremity functional scale score 46% Short Term Goal (STG) Improve LEFS to at least 60% as measure of improved activity tolerance STG Duration 11/11/23 Electroencephalograph Technician Goal (LTG) Improve LEFS to at least 70% as measure of improved activity tolerance and quality of life LTG Duration 12/29/23 Two Impairment strength and flexibility impairments bilateral LE's, core Short Term Goal (STG) Patient will be instructed in HEP for purposes of flexibility and strengthening of her LE's STG Duration 11/11/23 Shelter Goal (LTG) Patient will be independent and compliant with HEP and demonstrate improvement in strength to at least 4+/5 all LE muscle groups. LTG Duration 12/29/23 Assessment Summary Assessment Patient with increased pain today, added to HEP primarily isometrics with good radha though reported some pain as left session today. Simplified KT tape to 2 Y strips today. Physical Therapy Plan Frequency and Duration Frequency of Treatment 2x/Week Duration of treatment (weeks) 12 Plan of Care Start Date 09/28/23 Plan of Care End Date 12/29/23 Therapeutic Interventions Therapeutic Interventions Gait Training,Home Exercise Program,Manual Therapy,Patient /Caregiver Education,Self-Care /Home Management,Soft Tissue Mobilization,Taping, Therapeutic Activities, Therapeutic Exercises Next Visit Focus/Plan Next Note Type Treatment Note Next Visit Plan Progress ther ex as tolerated including trial chair squat with emphasis on on hip hinge. Possibly tape prior to hip hinge/chair squat. Seated core ex on ball, clamshell.
--- NOTE | 2023-10-27 16:21 | PT.OTN ---
Current Diagnoses Primary osteoarthritis, right ankle and foot (10/27/23) Primary osteoarthritis, left ankle and foot (10/27/23) Pain in left knee (10/27/23) Sciatica, right side (10/27/23) Physical Therapy Treatment Note PT-OP-A Visit Information Start: 09/27/23 16:38 Freq: Status: Active Protocol: Document 10/27/23 12:54 AB (Rec: 10/27/23 16:21 AB [id number]) Out-Patient Physical Therapy Visit Information Visit Information Visit Type Treatment Note Visit Note Access Code: [email or web address] Visit Start Time 14:32 Visit Stop Time 15:18 Visit Number 7 Number of CARPENTER RAILCAR Visits 1 Evaluation Information Evaluation Date 09/28/23 PT-OP-B Current Condition Start: 09/27/23 16:38 Freq: Status: Active Protocol: Document 10/13/23 11:13 SAK (Rec: 10/13/23 12:00 SAK [id number]) Current Condition History of Current Condition Onset Date 10+ years Current Complaints right hip pain, sciatica, left knee, kelsi ankles History of Current Condition left knee and right hip often feel like they are going to give out when she is standing or walking. When getting out of the care she states her right foot and ankle sometimes hurt so much she can't put weight on it and has to wait. Also has edema left LE (for years). Reports she has gained weight over the years as well and she expresses she knows extra weight contributes . Patient is diabetic and c/o diabetic neuropathty witgh pain soles of her feet. Did aquatic therapy in the past but hasn't. Uses single point cane in right hand, states she is very right handed. Worst problem is standing from sitting; feels pain in knees and hip. 5 years ago getting off bus twisted left knee badly. History of spraining right ankle. Sits in rocking chair most of the day, legs dependent. Has significant swelling left LE with reddish discoloriation mid calf down, hasn't been wearing compression stockings. Can't lay on her sides due to hip pain and shoulder pain kelsi. Has previously done aquatic exercise but not for several years. Prior Treatments and Tests x-rays: left knee, kelsi ankles. Moderate osteoarthritis, history shots left knee with good response. PT-OP-C Subjective Start: 09/27/23 16:38 Freq: Status: Active Protocol: Document 10/27/23 12:54 AB (Rec: 10/27/23 16:21 AB [id number]) OP-PT Subjective Patient Comments Patient Comments Patient reports she did her exercises today already. Patient reports she is having pain, worst right hip and left knee and left foot. Patient reports she had her eyes dialated earlier today cannot see well. PT-OP-G Mobility & Gait Start: 09/27/23 16:38 Freq: Status: Active Protocol: Document 09/28/23 09:04 SAK (Rec: 09/28/23 14:15 SAK [id number]) OP Gait Assessment Gait Gait Assistance Required: Independent Assistive Devices Assistive Device Straight Cane Gait Deviations General Gait Pattern Antalgic,Decreased Stride Length,Decreased Feet Clearance,Flexed Trunk Stair Climbing Evaluation Technique/Endurance Stair Climbing Technique Step to Step PT-OP-H Neuro Start: 09/27/23 16:38 Freq: Status: Active Protocol: Document 09/28/23 09:04 SAK (Rec: 09/28/23 14:15 [facility] [id number]) Sensation Evaluation Gross Sensation Sensation Description Paresthesia PT-OP-J Posture/Palpation/Skin Start: 09/27/23 16:38 Freq: Status: Active Protocol: Document 09/28/23 09:04 SAK (Rec: 09/28/23 14:15 [facility] [id number]) Posture Evaluation Position Standing Head/C-Spine Posture Forward Head T-Spine Posture Increased Kyphosis L-Spine Posture Increased Lordosis Shoulder Posture (L) Rounded,(R) Rounded Scapula Posture (L) Protracted,(R) Protracted Pelvis Posture Anteriorly Tilted Hip Posture (L) Externally Rotated,(R) Externally Rotated Knee Posture (L) Genu Valgus,(R) Genu Valgus Ankle/Foot Posture (L) Pronated,(R) Pronated PT-OP-K Range of Motion Start: 09/27/23 16:38 Freq: Status: Active Protocol: Document 09/28/23 09:04 SAK (Rec: 09/28/23 14:15 SAK [id number]) Lumbar Spine Range of Motion Lumbar Spine Active ROM Limitations Soft Tissue Tightness,Pain Comments mod decrease all motions Hip Goniometric Range of Motion Hip Right Hip ROM WFL No Flexion w/Knee Flexed 100 Straight Leg Raise 45 Extension 0 Abduction 20 Internal Rotation 10 External Rotation 35 Left Hip ROM WFL No Flexion w/Knee Flexed 100 Straight Leg Raise 55 Extension 0 Abduction 25 Internal Rotation 15 External Rotation 40 Hip ROM Limitations Hip ROM Limitations Soft Tissue Tightness,Pain Knee Goniometric Range of Motion Knee KELSI Knee ROM WFL Yes Ankle and Foot Goniometric Range of Motion Ankle and Foot Left Dorsiflexion with Knee Flexed 5 Dorsiflexion with Knee Extended 0 Plantarflexion 35 Inversion 25 Eversion 10 RIGHT Ankle/Foot ROM WFL No Dorsiflexion with Knee Flexed 5 Dorsiflexion with Knee Extended 0 Plantarflexion 35 Inversion 25 Eversion 10 PT-OP-M Strength Start: 09/27/23 16:38 Freq: Status: Active Protocol: Document 09/28/23 09:04 SAK (Rec: 09/28/23 14:15 SAK [id number]) Trunk Strength Trunk Manual Muscle Testing Flexion 2 Poor Extension 2 Poor Core Stabilization poor Hip Strength Hip Manual Muscle Testing kelsi Flexion (L2) 3- Fair- Extension (S1) 3- Fair- Abduction 3- Fair- External Rotation 3+ Fair+ Internal Rotation 3+ Fair+ Knee Strength Knee Manual Muscle Testing kelsi Flexion (S2) 4- Good- Extension (L3) 4- Good- Ankle/Foot Strength Ankle and Foot Manual Muscle Testing kelsi Dorsiflexion (L4) 4- Good- Plantarflexion (S1) 4- Good- Inversion 4- Good- Eversion (S1) 4- Good- PT-OP-Q Treatments Start: 09/27/23 16:38 Freq: Status: Active Protocol: Document 10/27/23 12:54 AB (Rec: 10/27/23 16:21 AB [id number]) Cardio Equipment Recumbent Elliptical (Biodex) Duration (Minutes) 4 Resistance 1 Seat Position 7 Therapeutic Exercises Supine Exercises piriformis stretch Supine Exercise Name HEP holds LE with towel Side bilateral Reps/Minutes 60 sec bent knee fallout Supine Exercise Name HEP Side bilateral Reps/Minutes X10 and X 4 Comments VC to brace as LE moves away from core abdominal bracing with LE extension Side bilateral Reps/Minutes X8 Comments VC to brace as LE moves away from core supine clam Resistance L2 Reps/Minutes X15 and one one minute hold Sidelying Exercises clam Sidelying Exercise Name Patient reports hips do not allowlying on side Sitting Exercises ball exercises Sitting Exercise Name marching Side bilateral Reps/Minutes X10 Comments close supervision to CGA rhythmic stablization Sitting Exercise Name 1. seated on mat 2. seated on ball Reps/Minutes X4 min seated hip abduction Sitting Exercise Name HEP for one minute hold Side bilateral Resistance level one band Reps/Minutes X15 without hold and one one minute hold Comments verbal HEs Standing Exercises chair squat Comments next session PT-OP-T Assessment and Plan Start: 09/27/23 16:38 Freq: Status: Active Protocol: Document 10/27/23 12:54 AB (Rec: 10/27/23 16:21 AB [id number]) Physical Therapy Assessment Goals Three Impairment unable to take walks Short Term Goal (STG) Decrease pain and improve activity tolerance sufficient for patient able to walk at least 6 min with single point cane or trekking poles STG Duration 11/11/23 Verify Rep Goal (LTG) Patient will improve walking ability sufficient to go grocery shopping without using motorized cart LTG Duration 12/29/23 One Impairment LEFS-lower extremity functional scale score 46% Short Term Goal (STG) Improve LEFS to at least 60% as measure of improved activity tolerance STG Duration 11/11/23 Verify Rep Goal (LTG) Improve LEFS to at least 70% as measure of improved activity tolerance and quality of life LTG Duration 12/29/23 Two Impairment strength and flexibility impairments bilateral LE's, core Short Term Goal (STG) Patient will be instructed in HEP for purposes of flexibility and strengthening of her LE's STG Duration 11/11/23 Custodial Goal (LTG) Patient will be independent and compliant with HEP and demonstrate improvement in strength to at least 4+/5 all LE muscle groups. LTG Duration 12/29/23 Assessment Summary Assessment Patient with reports of increased left knee pain ambulating out of session with SPC. Patient did report decreased pain with AROM hip ER and heel slide post piriformis stretch during session. Physical Therapy Plan Frequency and Duration Frequency of Treatment 2x/Week Duration of treatment (weeks) 12 Plan of Care Start Date 09/28/23 Plan of Care End Date 12/29/23 Next Visit Focus/Plan Next Note Type Treatment Note Next Visit Plan Progress ther ex as tolerated including trial chair squat with emphasis on on hip hinge. Possibly tape prior to hip hinge/chair squat. Seated core ex on nimo mackay.
--- NOTE | 2023-11-04 12:47 | PT.OTN ---
Current Diagnoses Primary osteoarthritis, right ankle and foot (11/04/23) Primary osteoarthritis, left ankle and foot (11/04/23) Pain in left knee (11/04/23) Sciatica, right side (11/04/23) Physical Therapy Treatment Note PT-OP-A Visit Information Start: 09/27/23 16:38 Freq: Status: Active Protocol: Document 11/04/23 08:59 AB (Rec: 11/04/23 10:34 AB [id number]) Out-Patient Physical Therapy Visit Information Visit Information Visit Type Treatment Note Visit Note Access Code: [email or web address] Visit Start Time 09:48 Visit Stop Time 10:33 Visit Number 8 Number of SMALL PRODUCTS ASSEMBLER Visits 2 Evaluation Information Evaluation Date 09/28/23 PT-OP-B Current Condition Start: 09/27/23 16:38 Freq: Status: Active Protocol: Document 10/13/23 11:13 SAK (Rec: 10/13/23 12:00 SAK [id number]) Current Condition History of Current Condition Onset Date 10+ years Current Complaints right hip pain, sciatica, left knee, kelsi ankles History of Current Condition left knee and right hip often feel like they are going to give out when she is standing or walking. When getting out of the care she states her right foot and ankle sometimes hurt so much she can't put weight on it and has to wait. Also has edema left LE (for years). Reports she has gained weight over the years as well and she expresses she knows extra weight contributes . Patient is diabetic and c/o diabetic neuropathty witgh pain soles of her feet. Did aquatic therapy in the past but hasn't. Uses single point cane in right hand, states she is very right handed. Worst problem is standing from sitting; feels pain in knees and hip. 5 years ago getting off bus twisted left knee badly. History of spraining right ankle. Sits in rocking chair most of the day, legs dependent. Has significant swelling left LE with reddish discoloriation mid calf down, hasn't been wearing compression stockings. Can't lay on her sides due to hip pain and shoulder pain kelsi. Has previously done aquatic exercise but not for several years. Prior Treatments and Tests x-rays: left knee, kelsi ankles. Moderate osteoarthritis, history shots left knee with good response. PT-OP-C Subjective Start: 09/27/23 16:38 Freq: Status: Active Protocol: Document 11/04/23 08:59 AB (Rec: 11/04/23 10:34 AB [id number]) OP-PT Subjective Patient Comments Patient Comments Patient reports she is better, unless she shifts side ways she her knee is not painful. Patient reports her hip didn't hurt when she got up this morning. PT-OP-G Mobility & Gait Start: 09/27/23 16:38 Freq: Status: Active Protocol: Document 09/28/23 09:04 SAK (Rec: 09/28/23 14:15 SAK [id number]) OP Gait Assessment Gait Gait Assistance Required: Independent Assistive Devices Assistive Device Straight Cane Gait Deviations General Gait Pattern Antalgic,Decreased Stride Length,Decreased Feet Clearance,Flexed Trunk Stair Climbing Evaluation Technique/Endurance Stair Climbing Technique Step to Step PT-OP-H Neuro Start: 09/27/23 16:38 Freq: Status: Active Protocol: Document 09/28/23 09:04 SAK (Rec: 09/28/23 14:15 SAK [id number]) Sensation Evaluation Gross Sensation Sensation Description Paresthesia PT-OP-J Posture/Palpation/Skin Start: 09/27/23 16:38 Freq: Status: Active Protocol: Document 09/28/23 09:04 SAK (Rec: 09/28/23 14:15 SAK [id number]) Posture Evaluation Position Standing Head/C-Spine Posture Forward Head T-Spine Posture Increased Kyphosis L-Spine Posture Increased Lordosis Shoulder Posture (L) Rounded,(R) Rounded Scapula Posture (L) Protracted,(R) Protracted Pelvis Posture Anteriorly Tilted Hip Posture (L) Externally Rotated,(R) Externally Rotated Knee Posture (L) Genu Valgus,(R) Genu Valgus Ankle/Foot Posture (L) Pronated,(R) Pronated PT-OP-K Range of Motion Start: 09/27/23 16:38 Freq: Status: Active Protocol: Document 09/28/23 09:04 SAK (Rec: 09/28/23 14:15 SAK [id number]) Lumbar Spine Range of Motion Lumbar Spine Active ROM Limitations Soft Tissue Tightness,Pain Comments mod decrease all motions Hip Goniometric Range of Motion Hip Right Hip ROM WFL No Flexion w/Knee Flexed 100 Straight Leg Raise 45 Extension 0 Abduction 20 Internal Rotation 10 External Rotation 35 Left Hip ROM WFL No Flexion w/Knee Flexed 100 Straight Leg Raise 55 Extension 0 Abduction 25 Internal Rotation 15 External Rotation 40 Hip ROM Limitations Hip ROM Limitations Soft Tissue Tightness,Pain Knee Goniometric Range of Motion Knee KELSI Knee ROM WFL Yes Ankle and Foot Goniometric Range of Motion Ankle and Foot Left Dorsiflexion with Knee Flexed 5 Dorsiflexion with Knee Extended 0 Plantarflexion 35 Inversion 25 Eversion 10 RIGHT Ankle/Foot ROM WFL No Dorsiflexion with Knee Flexed 5 Dorsiflexion with Knee Extended 0 Plantarflexion 35 Inversion 25 Eversion 10 PT-OP-M Strength Start: 09/27/23 16:38 Freq: Status: Active Protocol: Document 09/28/23 09:04 SAK (Rec: 09/28/23 14:15 SAK [id number]) Trunk Strength Trunk Manual Muscle Testing Flexion 2 Poor Extension 2 Poor Core Stabilization poor Hip Strength Hip Manual Muscle Testing kelsi Flexion (L2) 3- Fair- Extension (S1) 3- Fair- Abduction 3- Fair- External Rotation 3+ Fair+ Internal Rotation 3+ Fair+ Knee Strength Knee Manual Muscle Testing kelsi Flexion (S2) 4- Good- Extension (L3) 4- Good- Ankle/Foot Strength Ankle and Foot Manual Muscle Testing kelsi Dorsiflexion (L4) 4- Good- Plantarflexion (S1) 4- Good- Inversion 4- Good- Eversion (S1) 4- Good- PT-OP-Q Treatments Start: 09/27/23 16:38 Freq: Status: Active Protocol: Document 11/04/23 08:59 AB (Rec: 11/04/23 10:34 AB [id number]) Therapeutic Exercises Supine Exercises piriformis stretch Supine Exercise Name HEP holds LE with towel Side bilateral Reps/Minutes 60 sec Comments added small towel roll at groin SLR Side left Reps/Minutes X10 Comments VC supine clam Resistance L3 band Reps/Minutes X15 Sitting Exercises seated hip abduction Sitting Exercise Name HEP for one minute hold and increased to level 3 band Side bilateral Resistance level 3 band Reps/Minutes one min X 1 Comments verbal HEs Standing Exercises mini squat Reps/Minutes X10 Comments reports pain 7-10th rep peripatellar left knee sit to stand Standing Exercise Name hip hinge Side bilateral Reps/Minutes X5 chair squat Comments next session calf stretch Standing Exercise Name gastroc and soleus on EVELIA Reps/Minutes 60 sec X 2 each stretch Manual Therapy Treatment Consent Patient gave verbal consent for manual Yes treatment Soft Tissue Mobilization bilateral hips Body Location pififormis Mobilization Type Cross-Friction,Rolling Intensity/Depth Moderate Body Position Hooklying left knee Body Location left kne med, lat, supra and infra pat Mobilization Type Cross-Friction,Rolling,Other Intensity/Depth Superficial PT-OP-T Assessment and Plan Start: 09/27/23 16:38 Freq: Status: Active Protocol: Document 11/04/23 08:59 AB (Rec: 11/04/23 10:34 AB [id number]) Physical Therapy Assessment Goals Three Impairment unable to take walks Short Term Goal (STG) Decrease pain and improve activity tolerance sufficient for patient able to walk at least 6 min with single point cane or trekking poles STG Duration 11/11/23 Customer Account Specialist Goal (LTG) Patient will improve walking ability sufficient to go grocery shopping without using motorized cart LTG Duration 12/29/23 One Impairment LEFS-lower extremity functional scale score 46% Short Term Goal (STG) Improve LEFS to at least 60% as measure of improved activity tolerance STG Duration 11/11/23 Customer Account Specialist Goal (LTG) Improve LEFS to at least 70% as measure of improved activity tolerance and quality of life LTG Duration 12/29/23 Two Impairment strength and flexibility impairments bilateral LE's, core Short Term Goal (STG) Patient will be instructed in HEP for purposes of flexibility and strengthening of her LE's STG Duration 11/11/23 Long-Term Goal (LTG) Patient will be independent and compliant with HEP and demonstrate improvement in strength to at least 4+/5 all LE muscle groups. LTG Duration 12/29/23 Assessment Summary Assessment Patient with good return demonstration for hip hinge with sit to stand and mini squat, but decreased radha to mini squat as seen by increased pain 7-10> rep. Patient reports she would'nt call it pain but can feel it left knee Physical Therapy Plan Frequency and Duration Frequency of Treatment 2x/Week Duration of treatment (weeks) 12 Plan of Care Start Date 09/28/23 Plan of Care End Date 12/29/23 Next Visit Focus/Plan Next Note Type Treatment Note Next Visit Plan Progress ther ex as tolerated including trial chair squat with emphasis on on hip hinge. Possibly tape prior to hip hinge/chair squat. Seated core ex on ball, clamshell.
--- NOTE | 2023-11-10 12:52 | PT.OTN ---
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 When getting out of the care she states her right foot and ankle sometimes hurt so much she can't put weight on it and has to wait. Also has edema left LE (for years). Reports she has gained weight over the years as well and she expresses she knows extra weight contributes . Patient is diabetic and c/o diabetic neuropathty witgh pain soles of her feet. Did aquatic therapy in the past but hasn't. Uses single point cane in right hand, states she is very right handed. Worst problem is standing from sitting; feels pain in knees and hip. 5 years ago getting off bus twisted left knee badly. History of spraining right ankle. Sits in rocking chair most of the day, legs dependent. Has significant swelling left LE with reddish discoloriation mid calf down, hasn't been wearing compression stockings. Can't lay on her sides due to hip pain and shoulder pain kelsi. Has previously done aquatic exercise but not for several years. Prior Treatments and Tests x-rays: left knee, kelsi ankles. Moderate osteoarthritis, history shots left knee with good response. PT-OP-C Subjective Start: 09/27/23 16:38 Freq: Status: Active Protocol: Document 11/10/23 10:12 AB (Rec: 11/10/23 12:47 AB [id number]) OP-PT Subjective Patient Comments Patient Comments Patient reports the knee is better, hip still has sharp pain at least 2 X a day with the sensation that it will give out. Patient rates pain 3 /10 right hip and left knee ambulating into session without device. PT-OP-G Mobility & Gait Start: 09/27/23 16:38 Freq: Status: Active Protocol: Document 09/28/23 09:04 SAK (Rec: 09/28/23 14:15 SAK [id number]) OP Gait Assessment Gait Gait Assistance Required: Independent Assistive Devices Assistive Device Straight Cane Gait Deviations General Gait Pattern Antalgic,Decreased Stride Length,Decreased Feet Clearance,Flexed Trunk Stair Climbing Evaluation Technique/Endurance Stair Climbing Technique Step to Step PT-OP-H Neuro Start: 09/27/23 16:38 Freq: Status: Active Protocol: Document 09/28/23 09:04 SAK (Rec: 09/28/23 14:15 SAK [id number]) Sensation Evaluation Gross Sensation Sensation Description Paresthesia PT-OP-J Posture/Palpation/Skin Start: 09/27/23 16:38 Freq: Status: Active Protocol: Document 09/28/23 09:04 SAK (Rec: 09/28/23 14:15 SAK [id number]) Posture Evaluation Position Standing Head/C-Spine Posture Forward Head T-Spine Posture Increased Kyphosis L-Spine Posture Increased Lordosis Shoulder Posture (L) Rounded,(R) Rounded Scapula Posture (L) Protracted,(R) Protracted Pelvis Posture Anteriorly Tilted Hip Posture (L) Externally Rotated,(R) Externally Rotated Knee Posture (L) Genu Valgus,(R) Genu Valgus Ankle/Foot Posture (L) Pronated,(R) Pronated PT-OP-K Range of Motion Start: 09/27/23 16:38 Freq: Status: Active Protocol: Document 09/28/23 09:04 SAK (Rec: 09/28/23 14:15 SAK [id number]) Lumbar Spine Range of Motion Lumbar Spine Active ROM Limitations Soft Tissue Tightness,Pain Comments mod decrease all motions Hip Goniometric Range of Motion Hip Right Hip ROM WFL No Flexion w/Knee Flexed 100 Straight Leg Raise 45 Extension 0 Abduction 20 Internal Rotation 10 External Rotation 35 Left Hip ROM WFL No Flexion w/Knee Flexed 100 Straight Leg Raise 55 Extension 0 Abduction 25 Internal Rotation 15 External Rotation 40 Hip ROM Limitations Hip ROM Limitations Soft Tissue Tightness,Pain Knee Goniometric Range of Motion Knee KELSI Knee ROM WFL Yes Ankle and Foot Goniometric Range of Motion Ankle and Foot Left Dorsiflexion with Knee Flexed 5 Dorsiflexion with Knee Extended 0 Plantarflexion 35 Inversion 25 Eversion 10 RIGHT Ankle/Foot ROM WFL No Dorsiflexion with Knee Flexed 5 Dorsiflexion with Knee Extended 0 Plantarflexion 35 Inversion 25 Eversion 10 PT-OP-M Strength Start: 09/27/23 16:38 Freq: Status: Active Protocol: Document 09/28/23 09:04 SAK (Rec: 09/28/23 14:15 SAK [id number]) Trunk Strength Trunk Manual Muscle Testing Flexion 2 Poor Extension 2 Poor Core Stabilization poor Hip Strength Hip Manual Muscle Testing kelsi Flexion (L2) 3- Fair- Extension (S1) 3- Fair- Abduction 3- Fair- External Rotation 3+ Fair+ Internal Rotation 3+ Fair+ Knee Strength Knee Manual Muscle Testing kelsi Flexion (S2) 4- Good- Extension (L3) 4- Good- Ankle/Foot Strength Ankle and Foot Manual Muscle Testing kelsi Dorsiflexion (L4) 4- Good- Plantarflexion (S1) 4- Good- Inversion 4- Good- Eversion (S1) 4- Good- PT-OP-Q Treatments Start: 09/27/23 16:38 Freq: Status: Active Protocol: Document 11/10/23 10:12 AB (Rec: 11/10/23 12:47 AB [id number]) Therapeutic Exercises Supine Exercises piriformis stretch Supine Exercise Name HEP Side bilateral Reps/Minutes 60 sec X 2 each LE Sitting Exercises seated hip abduction Sitting Exercise Name HEP for one minute hold and increased to level 3 band Side bilateral Resistance level 3 band Reps/Minutes one min X 1 and X 15 X 2 Standing Exercises mini squat Side bilateral Reps/Minutes 2X10 Comments post kinesiotaping, verbal cues for hip hinge, monitored for pain Manual Therapy Treatment Soft Tissue Mobilization bilateral hips Body Location pififormis Mobilization Type Cross-Friction,Rolling Intensity/Depth Moderate Body Position Hooklying left knee Body Location left kne med, lat, supra and infra pat Mobilization Type Cross-Friction,Rolling,Other Intensity/Depth Superficial Taping left knee Body Location left knee Treatment Focus support and pain reduction Type of Tape KT Skin Inspection intact Comments 2 Y strips 50-75% stretch both sides patella. also 2 I strips to unload fat pad med and lat from lachelle pat proximally 50% stretch PT-OP-T Assessment and Plan Start: 09/27/23 16:38 Freq: Status: Active Protocol: Document 11/10/23 10:12 AB (Rec: 11/10/23 12:47 AB [id number]) Physical Therapy Assessment Goals Three Impairment unable to take walks Short Term Goal (STG) Decrease pain and improve activity tolerance sufficient for patient able to walk at least 6 min with single point cane or trekking poles STG Duration 11/11/23 Jail Goal (LTG) Patient will improve walking ability sufficient to go grocery shopping without using motorized cart LTG Duration 12/29/23 One Impairment LEFS-lower extremity functional scale score 46% Short Term Goal (STG) Improve LEFS to at least 60% as measure of improved activity tolerance STG Duration 11/11/23 [facility] Goal (LTG) Improve LEFS to at least 70% as measure of improved activity tolerance and quality of life LTG Duration 12/29/23 Two Impairment strength and flexibility impairments bilateral LE's, core Short Term Goal (STG) Patient will be instructed in HEP for purposes of flexibility and strengthening of her LE's STG Duration 11/11/23 [facility] Goal (LTG) Patient will be independent and compliant with HEP and demonstrate improvement in strength to at least 4+/5 all LE muscle groups. LTG Duration 12/29/23 Assessment Summary Assessment Improved radha to mini squat with tape to unload fat pad added to left knee taping. Patient into session with reports of using SPC less. Physical Therapy Plan Frequency and Duration Frequency of Treatment 2x/Week Duration of treatment (weeks) 12 Plan of Care Start Date 09/28/23 Plan of Care End Date 12/29/23 Next Visit Focus/Plan Next Note Type Treatment Note Next Visit Plan Progress ther ex as tolerated including trial chair squat with emphasis on on hip hinge. Possibly mini squat to HEP ( post taping if needed ) Seated core ex on ball, clamshell. Assess balance
--- NOTE | 2023-11-18 12:51 | PT.OTN ---
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 When getting out of the care she states her right foot and ankle sometimes hurt so much she can't put weight on it and has to wait. Also has edema left LE (for years). Reports she has gained weight over the years as well and she expresses she knows extra weight contributes . Patient is diabetic and c/o diabetic neuropathty witgh pain soles of her feet. Did aquatic therapy in the past but hasn't. Uses single point cane in right hand, states she is very right handed. Worst problem is standing from sitting; feels pain in knees and hip. 5 years ago getting off bus twisted left knee badly. History of spraining right ankle. Sits in rocking chair most of the day, legs dependent. Has significant swelling left LE with reddish discoloriation mid calf down, hasn't been wearing compression stockings. Can't lay on her sides due to hip pain and shoulder pain kelsi. Has previously done aquatic exercise but not for several years. Prior Treatments and Tests x-rays: left knee, kelsi ankles. Moderate osteoarthritis, history shots left knee with good response. PT-OP-C Subjective Start: 09/27/23 16:38 Freq: Status: Active Protocol: Document 11/18/23 08:10 AB (Rec: 11/18/23 09:45 AB [id number]) OP-PT Subjective Patient Comments Patient Comments Patient reports sometimes she is better sometimes not. Patient reports pain 2-3/10 back and hip ambulating into session, comments it is a 5/10 with bending over. Patient reports she has been using less pillows under LE's in bed . PT-OP-G Mobility & Gait Start: 09/27/23 16:38 Freq: Status: Active Protocol: Document 09/28/23 09:04 SAK (Rec: 09/28/23 14:15 SAK [id number]) OP Gait Assessment Gait Gait Assistance Required: Independent Assistive Devices Assistive Device Straight Cane Gait Deviations General Gait Pattern Antalgic,Decreased Stride Length,Decreased Feet Clearance,Flexed Trunk Stair Climbing Evaluation Technique/Endurance Stair Climbing Technique Step to Step PT-OP-H Neuro Start: 09/27/23 16:38 Freq: Status: Active Protocol: Document 09/28/23 09:04 SAK (Rec: 09/28/23 14:15 SAK [id number]) Sensation Evaluation Gross Sensation Sensation Description Paresthesia PT-OP-J Posture/Palpation/Skin Start: 09/27/23 16:38 Freq: Status: Active Protocol: Document 09/28/23 09:04 SAK (Rec: 09/28/23 14:15 SAK [id number]) Posture Evaluation Position Standing Head/C-Spine Posture Forward Head T-Spine Posture Increased Kyphosis L-Spine Posture Increased Lordosis Shoulder Posture (L) Rounded,(R) Rounded Scapula Posture (L) Protracted,(R) Protracted Pelvis Posture Anteriorly Tilted Hip Posture (L) Externally Rotated,(R) Externally Rotated Knee Posture (L) Genu Valgus,(R) Genu Valgus Ankle/Foot Posture (L) Pronated,(R) Pronated PT-OP-K Range of Motion Start: 09/27/23 16:38 Freq: Status: Active Protocol: Document 09/28/23 09:04 SAK (Rec: 09/28/23 14:15 SAK [id number]) Lumbar Spine Range of Motion Lumbar Spine Active ROM Limitations Soft Tissue Tightness,Pain Comments mod decrease all motions Hip Goniometric Range of Motion Hip Right Hip ROM WFL No Flexion w/Knee Flexed 100 Straight Leg Raise 45 Extension 0 Abduction 20 Internal Rotation 10 External Rotation 35 Left Hip ROM WFL No Flexion w/Knee Flexed 100 Straight Leg Raise 55 Extension 0 Abduction 25 Internal Rotation 15 External Rotation 40 Hip ROM Limitations Hip ROM Limitations Soft Tissue Tightness,Pain Knee Goniometric Range of Motion Knee KELSI Knee ROM WFL Yes Ankle and Foot Goniometric Range of Motion Ankle and Foot Left Dorsiflexion with Knee Flexed 5 Dorsiflexion with Knee Extended 0 Plantarflexion 35 Inversion 25 Eversion 10 RIGHT Ankle/Foot ROM WFL No Dorsiflexion with Knee Flexed 5 Dorsiflexion with Knee Extended 0 Plantarflexion 35 Inversion 25 Eversion 10 PT-OP-M Strength Start: 09/27/23 16:38 Freq: Status: Active Protocol: Document 09/28/23 09:04 SAK (Rec: 09/28/23 14:15 SAK [id number]) Trunk Strength Trunk Manual Muscle Testing Flexion 2 Poor Extension 2 Poor Core Stabilization poor Hip Strength Hip Manual Muscle Testing kelsi Flexion (L2) 3- Fair- Extension (S1) 3- Fair- Abduction 3- Fair- External Rotation 3+ Fair+ Internal Rotation 3+ Fair+ Knee Strength Knee Manual Muscle Testing kelsi Flexion (S2) 4- Good- Extension (L3) 4- Good- Ankle/Foot Strength Ankle and Foot Manual Muscle Testing kelsi Dorsiflexion (L4) 4- Good- Plantarflexion (S1) 4- Good- Inversion 4- Good- Eversion (S1) 4- Good- PT-OP-Q Treatments Start: 09/27/23 16:38 Freq: Status: Active Protocol: Document 11/18/23 08:10 AB (Rec: 11/18/23 09:45 AB [id number]) Cardio Equipment Recumbent Elliptical (Biodex) Duration (Minutes) 6 Resistance 1,2,1 Seat Position 9 Therapeutic Exercises Supine Exercises Modified hip flexor stretch Supine Exercise Name one LE on bolster opp LE on mat Reps/Minutes 2 min each LE Comments VC for breathing from diaphragm piriformis stretch Supine Exercise Name HEP Side bilateral Reps/Minutes 60 sec X 1 each LE Comments small towel at groin for right LE bridge Supine Exercise Name HEP Reps/Minutes 15x Comments small lift TrA Reps/Minutes 10x Comments Verbal cues to avoid holding breath Standing Exercises step up Standing Exercise Name attempted 4 inch step left LE unable mini squat Side bilateral Reps/Minutes X4 Comments not radha due to c/o knee pain Manual Therapy Treatment Consent Patient gave verbal consent for manual Yes treatment Soft Tissue Mobilization bilateral hips Body Location pififormis Mobilization Type Cross-Friction,Rolling Intensity/Depth Moderate Body Position Hooklying left knee Body Location left kne med, lat, supra and infra pat Mobilization Type Cross-Friction,Rolling,Other Intensity/Depth Superficial Taping left knee Body Location left knee Treatment Focus support and pain reduction Type of Tape KT Skin Inspection intact Comments 2 Y strips 50-75% stretch both sides patella. also 2 I strips to unload fat pad med and lat from lachelle pat proximally 50% stretch PT-OP-T Assessment and Plan Start: 09/27/23 16:38 Freq: Status: Active Protocol: Document 11/18/23 08:10 AB (Rec: 11/18/23 09:45 AB [id number]) Physical Therapy Assessment Goals Three Impairment unable to take walks Short Term Goal (STG) Decrease pain and improve activity tolerance sufficient for patient able to walk at least 6 min with single point cane or trekking poles STG Duration 11/11/23 Prison Goal (LTG) Patient will improve walking ability sufficient to go grocery shopping without using motorized cart LTG Duration 12/29/23 One Impairment LEFS-lower extremity functional scale score 46% Short Term Goal (STG) Improve LEFS to at least 60% as measure of improved activity tolerance STG Duration 11/11/23 Prison Goal (LTG) Improve LEFS to at least 70% as measure of improved activity tolerance and quality of life LTG Duration 12/29/23 Two Impairment strength and flexibility impairments bilateral LE's, core Short Term Goal (STG) Patient will be instructed in HEP for purposes of flexibility and strengthening of her LE's STG Duration 11/11/23 Promotions Executive Goal (LTG) Patient will be independent and compliant with HEP and demonstrate improvement in strength to at least 4+/5 all LE muscle groups. LTG Duration 12/29/23 Assessment Summary Assessment Lolis rates back pain /10 end of session. Decreased radha to mini squat this session, but good radha to bridge and patient performs sit to stand during transitions with adequate hip hinge. Physical Therapy Plan Frequency and Duration Frequency of Treatment 2x/Week Duration of treatment (weeks) 12 Plan of Care Start Date 09/28/23 Plan of Care End Date 12/29/23 Next Visit Focus/Plan Next Note Type Progress Note Next Visit Plan Progress ther ex as tolerated including trial chair squat with emphasis on on hip hinge. Possibly mini squat to HEP ( post taping if needed ) Seated core ex on ball, clamshell. Assess balance
--- NOTE | 2023-11-29 17:03 | PT.OTN ---
Current Diagnoses Primary osteoarthritis, right ankle and foot (11/29/23) Primary osteoarthritis, left ankle and foot (11/29/23) Pain in left knee (11/29/23) Sciatica, right side (11/29/23) Physical Therapy Treatment Note PT-OP-A Visit Information Start: 09/27/23 16:38 Freq: Status: Active Protocol: Document 11/29/23 12:55 [facility] (Rec: 11/29/23 13:48 [facility] [id number]) Out-Patient Physical Therapy Visit Information Visit Information Visit Type Treatment Note Visit Start Time 13:00 Visit Stop Time 13:45 Visit Number 11 Number of [employer]ENO[employer]HER [employer] Visits 0 PT-OP-B Current Condition Start: 09/27/23 16:38 Freq: Status: Active Protocol: Document 11/29/23 12:55 [facility] (Rec: 11/29/23 13:48 [facility] [id number]) Current Condition History of Current Condition Onset Date 10+ years Current Complaints right hip pain, sciatica, left knee, kelsi ankles History of Current Condition left knee and right hip often feel like they are going to give out when she is standing or walking. When getting out of the care she states her right foot and ankle sometimes hurt so much she can't put weight on it and has to wait. Also has edema left LE (for years). Reports she has gained weight over the years as well and she expresses she knows extra weight contributes . Patient is diabetic and c/o diabetic neuropathty witgh pain soles of her feet. Did aquatic therapy in the past but hasn't. Uses single point cane in right hand, states she is very right handed. Worst problem is standing from sitting; feels pain in knees and hip. 5 years ago getting off bus twisted left knee badly. History of spraining right ankle. Sits in rocking chair most of the day, legs dependent. Has significant swelling left LE with reddish discoloriation mid calf down, hasn't been wearing compression stockings. Can't lay on her sides due to hip pain and shoulder pain kelsi. Has previously done aquatic exercise but not for several years. Prior Treatments and Tests x-rays: left knee, kelsi ankles. Moderate osteoarthritis, history shots left knee with good response. PT-OP-C Subjective Start: 09/27/23 16:38 Freq: Status: Active Protocol: Document 11/29/23 12:55 [facility] (Rec: 11/29/23 13:48 [facility] [id number]) OP-PT Subjective Patient Comments Patient Comments Using less pillows under legs at night. Sometimes thinks PT helping, sometimes not. Had sleep study Tuesday with EKG, EKG showed arrythmia so now going to have heart monitor for 2 weeks. Some exercises helpful, some not, hasn't tried aquatic exercise yet as recommended and now can't with bicycle repairman for 2 weeks. PT-OP-G Mobility & Gait Start: 09/27/23 16:38 Freq: Status: Active Protocol: Document 09/28/23 09:04 [facility] (Rec: 09/28/23 14:15 [facility] [id number]) OP Gait Assessment Gait Gait Assistance Required: Independent Assistive Devices Assistive Device Straight Cane Gait Deviations General Gait Pattern Antalgic,Decreased Stride Length,Decreased Feet Clearance,Flexed Trunk Stair Climbing Evaluation Technique/Endurance Stair Climbing Technique Step to Step PT-OP-H Neuro Start: 09/27/23 16:38 Freq: Status: Active Protocol: Document 09/28/23 09:04 [facility] (Rec: 09/28/23 14:15 [facility] [id number]) Sensation Evaluation Gross Sensation Sensation Description Paresthesia PT-OP-J Posture/Palpation/Skin Start: 09/27/23 16:38 Freq: Status: Active Protocol: Document 09/28/23 09:04 [facility] (Rec: 09/28/23 14:15 [facility] [id number]) Posture Evaluation Position Standing Head/C-Spine Posture Forward Head T-Spine Posture Increased Kyphosis L-Spine Posture Increased Lordosis Shoulder Posture (L) Rounded,(R) Rounded Scapula Posture (L) Protracted,(R) Protracted Pelvis Posture Anteriorly Tilted Hip Posture (L) Externally Rotated,(R) Externally Rotated Knee Posture (L) Genu Valgus,(R) Genu Valgus Ankle/Foot Posture (L) Pronated,(R) Pronated PT-OP-K Range of Motion Start: 09/27/23 16:38 Freq: Status: Active Protocol: Document 09/28/23 09:04 [facility] (Rec: 09/28/23 14:15 [facility] [id number]) Lumbar Spine Range of Motion Lumbar Spine Active ROM Limitations Soft Tissue Tightness,Pain Comments mod decrease all motions Hip Goniometric Range of Motion Hip Right Hip ROM WFL No Flexion w/Knee Flexed 100 Straight Leg Raise 45 Extension 0 Abduction 20 Internal Rotation 10 External Rotation 35 Left Hip ROM WFL No Flexion w/Knee Flexed 100 Straight Leg Raise 55 Extension 0 Abduction 25 Internal Rotation 15 External Rotation 40 Hip ROM Limitations Hip ROM Limitations Soft Tissue Tightness,Pain Knee Goniometric Range of Motion Knee KELSI Knee ROM WFL Yes Ankle and Foot Goniometric Range of Motion Ankle and Foot Left Dorsiflexion with Knee Flexed 5 Dorsiflexion with Knee Extended 0 Plantarflexion 35 Inversion 25 Eversion 10 RIGHT Ankle/Foot ROM WFL No Dorsiflexion with Knee Flexed 5 Dorsiflexion with Knee Extended 0 Plantarflexion 35 Inversion 25 Eversion 10 PT-OP-M Strength Start: 09/27/23 16:38 Freq: Status: Active Protocol: Document 09/28/23 09:04 [facility] (Rec: 09/28/23 14:15 [facility] [id number]) Trunk Strength Trunk Manual Muscle Testing Flexion 2 Poor Extension 2 Poor Core Stabilization poor Hip Strength Hip Manual Muscle Testing kelsi Flexion (L2) 3- Fair- Extension (S1) 3- Fair- Abduction 3- Fair- External Rotation 3+ Fair+ Internal Rotation 3+ Fair+ Knee Strength Knee Manual Muscle Testing kelsi Flexion (S2) 4- Good- Extension (L3) 4- Good- Ankle/Foot Strength Ankle and Foot Manual Muscle Testing kelsi Dorsiflexion (L4) 4- Good- Plantarflexion (S1) 4- Good- Inversion 4- Good- Eversion (S1) 4- Good- PT-OP-Q Treatments Start: 09/27/23 16:38 Freq: Status: Active Protocol: Document 11/29/23 12:55 [facility] (Rec: 11/29/23 13:48 [facility] [id number]) Cardio Equipment Recumbent Elliptical (Biodex) Duration (Minutes) 10 Resistance 1-3 Seat Position 7 Other denies pain Therapeutic Exercises Supine Exercises Modified hip flexor stretch Supine Exercise Name one LE on bolster opp LE on mat Reps/Minutes 2 min each LE Comments VC for breathing from diaphragm piriformis stretch Supine Exercise Name HEP Side bilateral Reps/Minutes 60 sec X 1 each LE Comments small towel at groin for right LE bridge Supine Exercise Name HEP Reps/Minutes 15x Comments small lift TrA Reps/Minutes 10x Comments Verbal cues to avoid holding breath Sitting Exercises lean backs Reps/Minutes 10x2 Comments cues for long spine seated clam Resistance L1 TB Reps/Minutes 10x2 Comments small folded towels in between bands and distal thighs due to c/o pain seated hip abduction Sitting Exercise Name HEP for one minute hold and increased to level 3 band Side bilateral Resistance level 3 band Reps/Minutes one min LAQ Equipment Used 2# Reps/Minutes 10x5 Comments cues for pain-free ROM ball squeeze Reps/Minutes 10x Comments cues for pain-free intensity Standing Exercises glut set Reps/Minutes 10x5 foam stand Equipment Used wall bar Reps/Minutes 2 min Comments EO, EC Manual Therapy Treatment Taping left knee Body Location left knee Treatment Focus support and pain reduction Type of Tape KT Skin Inspection intact Comments Y strip to facilitate inc medial positioning patella 75% stretch , 2 Y strips 50-75% stretch both sides patella. Self-Care/Home Management Treatment Education Patient Education Home Exercise Program Other Education Renewed PT recommendation for aquatic exercise, also go to Fitness center at pool to use recumbant elliptical due to good tolerance. PT-OP-T Assessment and Plan Start: 09/27/23 16:38 Freq: Status: Active Protocol: Document 11/29/23 12:55 [facility] (Rec: 11/29/23 13:48 [facility] [id number]) Physical Therapy Assessment Goals Three Impairment unable to take walks Short Term Goal (STG) Decrease pain and improve activity tolerance sufficient for patient able to walk at least 6 min with single point cane or trekking poles 11/28/23: no significant improvement STG Duration 11/11/23 Call Taker Goal (LTG) Patient will improve walking ability sufficient to go grocery shopping without using motorized cart LTG Duration 12/29/23 One Impairment LEFS-lower extremity functional scale score 46% Short Term Goal (STG) Improve LEFS to at least 60% as measure of improved activity tolerance 11/28/23: score 41% today STG Duration 11/11/23 Call Taker Goal (LTG) Improve LEFS to at least 70% as measure of improved activity tolerance and quality of life LTG Duration 12/29/23 Two Impairment strength and flexibility impairments bilateral LE's, core Short Term Goal (STG) Patient will be instructed in HEP for purposes of flexibility and strengthening of her LE's 11/28/23: good goal progress, ongoing modification and progression STG Duration 11/11/23 Long-Term Goal (LTG) Patient will be independent and compliant with HEP and demonstrate improvement in strength to at least 4+/5 all LE muscle groups. LTG Duration 12/29/23 Progress Towards Goals Progress Towards Goals Slow Progress due to Medical Issues Assessment Summary Assessment Patient pain variable, 0/10 sitting can increase to 6/10 standing and walking. Hasn't yet tried aquatic exercise yet as recommended by PT and now will be wearing bicycle repairman x 2 weeks due to arrythmia picked up during sleep study. She has multiple c/o pain with movement and exercise, weight and weakness highly contributory. she has good tolerance to recumbant elliptical and recommended she go to fitness [employer] to work on that machine, and when able to try aquatic exercise as she benefited from previously Physical Therapy Plan Frequency and Duration Frequency of Treatment 2x/Week Duration of treatment (weeks) 12 Plan of Care Start Date 09/28/23 Plan of Care End Date 12/29/23 Therapeutic Interventions Therapeutic Interventions Gait Training,Home Exercise Program,Manual Therapy,Patient /Caregiver Education,Self-Care /Home Management,Soft Tissue Mobilization,Taping, Therapeutic Activities, Therapeutic Exercises Next Visit Focus/Plan Next Note Type Progress Note Next Visit Plan Continue gentle ther ex progression for strengthening core, LE's, improving activity tolerance.
--- NOTE | 2023-12-02 16:19 | PT.OTN ---
Current Diagnoses Primary osteoarthritis, right ankle and foot (12/02/23) Primary osteoarthritis, left ankle and foot (12/02/23) Pain in left knee (12/02/23) Sciatica, right side (12/02/23) Physical Therapy Treatment Note PT-OP-A Visit Information Start: 09/27/23 16:38 Freq: Status: Active Protocol: Document 12/02/23 12:39 [facility] (Rec: 12/02/23 16:19 [facility] [id number]) Out-Patient Physical Therapy Visit Information Visit Information Visit Type Treatment Note Visit Note Access Code: [email or web address] Visit Start Time 14:37 Visit Stop Time 15:19 Visit Number 12 Number of [employer] TECHNICIAN Visits 1 PT-OP-B Current Condition Start: 09/27/23 16:38 Freq: Status: Active Protocol: Document 11/29/23 12:55 [facility] (Rec: 11/29/23 13:48 [facility] [id number]) Current Condition History of Current Condition Onset Date 10+ years Current Complaints right hip pain, sciatica, left knee, kelsi ankles History of Current Condition left knee and right hip often feel like they are going to give out when she is standing or walking. When getting out of the care she states her right foot and ankle sometimes hurt so much she can't put weight on it and has to wait. Also has edema left LE (for years). Reports she has gained weight over the years as well and she expresses she knows extra weight contributes . Patient is diabetic and c/o diabetic neuropathty witgh pain soles of her feet. Did aquatic therapy in the past but hasn't. Uses single point cane in right hand, states she is very right handed. Worst problem is standing from sitting; feels pain in knees and hip. 5 years ago getting off bus twisted left knee badly. History of spraining right ankle. Sits in rocking chair most of the day, legs dependent. Has significant swelling left LE with reddish discoloriation mid calf down, hasn't been wearing compression stockings. Can't lay on her sides due to hip pain and shoulder pain kelsi. Has previously done aquatic exercise but not for several years. Prior Treatments and Tests x-rays: left knee, kelsi ankles. Moderate osteoarthritis, history shots left knee with good response. PT-OP-C Subjective Start: 09/27/23 16:38 Freq: Status: Active Protocol: Document 12/02/23 12:39 [facility] (Rec: 12/02/23 16:19 [facility] [id number]) OP-PT Subjective Patient Comments Patient Comments Patient reports she walked probably more than 1/2 mile yesterday, and take buses for eye appointment, reports hip, knees and foot hurt. Patient reports having difficulty putting weight on left knee when she got up this morning. Patient into session with monitor in place for heart. PT-OP-G Mobility & Gait Start: 09/27/23 16:38 Freq: Status: Active Protocol: Document 09/28/23 09:04 [facility] (Rec: 09/28/23 14:15 [facility] [id number]) OP Gait Assessment Gait Gait Assistance Required: Independent Assistive Devices Assistive Device Straight Cane Gait Deviations General Gait Pattern Antalgic,Decreased Stride Length,Decreased Feet Clearance,Flexed Trunk Stair Climbing Evaluation Technique/Endurance Stair Climbing Technique Step to Step PT-OP-H Neuro Start: 09/27/23 16:38 Freq: Status: Active Protocol: Document 09/28/23 09:04 [facility] (Rec: 09/28/23 14:15 [facility] [id number]) Sensation Evaluation Gross Sensation Sensation Description Paresthesia PT-OP-J Posture/Palpation/Skin Start: 09/27/23 16:38 Freq: Status: Active Protocol: Document 09/28/23 09:04 [facility] (Rec: 09/28/23 14:15 [facility] [id number]) Posture Evaluation Position Standing Head/C-Spine Posture Forward Head T-Spine Posture Increased Kyphosis L-Spine Posture Increased Lordosis Shoulder Posture (L) Rounded,(R) Rounded Scapula Posture (L) Protracted,(R) Protracted Pelvis Posture Anteriorly Tilted Hip Posture (L) Externally Rotated,(R) Externally Rotated Knee Posture (L) Genu Valgus,(R) Genu Valgus Ankle/Foot Posture (L) Pronated,(R) Pronated PT-OP-K Range of Motion Start: 09/27/23 16:38 Freq: Status: Active Protocol: Document 09/28/23 09:04 [facility] (Rec: 09/28/23 14:15 [facility] [id number]) Lumbar Spine Range of Motion Lumbar Spine Active ROM Limitations Soft Tissue Tightness,Pain Comments mod decrease all motions Hip Goniometric Range of Motion Hip Right Hip ROM WFL No Flexion w/Knee Flexed 100 Straight Leg Raise 45 Extension 0 Abduction 20 Internal Rotation 10 External Rotation 35 Left Hip ROM WFL No Flexion w/Knee Flexed 100 Straight Leg Raise 55 Extension 0 Abduction 25 Internal Rotation 15 External Rotation 40 Hip ROM Limitations Hip ROM Limitations Soft Tissue Tightness,Pain Knee Goniometric Range of Motion Knee KELSI Knee ROM WFL Yes Ankle and Foot Goniometric Range of Motion Ankle and Foot Left Dorsiflexion with Knee Flexed 5 Dorsiflexion with Knee Extended 0 Plantarflexion 35 Inversion 25 Eversion 10 RIGHT Ankle/Foot ROM WFL No Dorsiflexion with Knee Flexed 5 Dorsiflexion with Knee Extended 0 Plantarflexion 35 Inversion 25 Eversion 10 PT-OP-M Strength Start: 09/27/23 16:38 Freq: Status: Active Protocol: Document 09/28/23 09:04 [facility] (Rec: 09/28/23 14:15 [facility] [id number]) Trunk Strength Trunk Manual Muscle Testing Flexion 2 Poor Extension 2 Poor Core Stabilization poor Hip Strength Hip Manual Muscle Testing kelsi Flexion (L2) 3- Fair- Extension (S1) 3- Fair- Abduction 3- Fair- External Rotation 3+ Fair+ Internal Rotation 3+ Fair+ Knee Strength Knee Manual Muscle Testing kelsi Flexion (S2) 4- Good- Extension (L3) 4- Good- Ankle/Foot Strength Ankle and Foot Manual Muscle Testing kelsi Dorsiflexion (L4) 4- Good- Plantarflexion (S1) 4- Good- Inversion 4- Good- Eversion (S1) 4- Good- PT-OP-Q Treatments Start: 09/27/23 16:38 Freq: Status: Active Protocol: Document 12/02/23 12:39 [facility] (Rec: 12/02/23 16:19 [facility] [id number]) Therapeutic Exercises Supine Exercises piriformis stretch Supine Exercise Name HEP Side bilateral Reps/Minutes 60 sec X 1 each LE Comments small towel at groin for right LE SLR Side bilateral Reps/Minutes X10 Comments VC Sitting Exercises breathing from diaphragm Sitting Exercise Name seated with pillows on lap Reps/Minutes 3 min Comments Verbal cues, Patient ed to perform when riding in car Standing Exercises AP weight shift Standing Exercise Name HEP, no handout Side bilateral Equipment Used UE support Reps/Minutes 10 Comments Verbal cues, montored for pain , heel raise Resistance not rahda Reps/Minutes X1 then self initiated X 1 post AP weight shift Comments reports increased pain on initial trial. Manual Therapy Treatment Soft Tissue Mobilization bilateral hips Body Location piriformis Mobilization Type Cross-Friction,Rolling Intensity/Depth Moderate Body Position Hooklying left knee Body Location left kne med, lat, supra and infra pat Mobilization Type Cross-Friction,Rolling,Other Intensity/Depth Superficial Taping left knee Body Location left knee Treatment Focus anchors for existing tape PT-OP-T Assessment and Plan Start: 09/27/23 16:38 Freq: Status: Active Protocol: Document 12/02/23 12:39 [facility] (Rec: 12/02/23 16:19 [facility] [id number]) Physical Therapy Assessment Goals Three Impairment unable to take walks Short Term Goal (STG) Decrease pain and improve activity tolerance sufficient for patient able to walk at least 6 min with single point cane or trekking poles 11/28/23: no significant improvement STG Duration 11/11/23 Fpc Goal (LTG) Patient will improve walking ability sufficient to go grocery shopping without using motorized cart LTG Duration 12/29/23 One Impairment LEFS-lower extremity functional scale score 46% Short Term Goal (STG) Improve LEFS to at least 60% as measure of improved activity tolerance 11/28/23: score 41% today STG Duration 11/11/23 Fpc Goal (LTG) Improve LEFS to at least 70% as measure of improved activity tolerance and quality of life LTG Duration 12/29/23 Two Impairment strength and flexibility impairments bilateral LE's, core Short Term Goal (STG) Patient will be instructed in HEP for purposes of flexibility and strengthening of her LE's 11/28/23: good goal progress, ongoing modification and progression STG Duration 11/11/23 Admissions Dean Goal (LTG) Patient will be independent and compliant with HEP and demonstrate improvement in strength to at least 4+/5 all LE muscle groups. LTG Duration 12/29/23 Assessment Summary Assessment Patient reports the knee feels better end of session, Good return demonstration and radha to AP weight shift, reports pain with attempted HR prior to AP weight shift, comments pain with HR less post AP weight shifting. Physical Therapy Plan Frequency and Duration Frequency of Treatment 2x/Week Duration of treatment (weeks) 12 Plan of Care Start Date 09/28/23 Plan of Care End Date 12/29/23 Next Visit Focus/Plan Next Note Type Treatment Note Next Visit Plan Continue gentle ther ex progression for strengthening core, LE's, improving activity tolerance. AP weight shift to written HEP.
--- NOTE | 2023-12-06 10:39 | PT.OTN ---
Current Diagnoses Primary osteoarthritis, right ankle and foot (12/06/23) Primary osteoarthritis, left ankle and foot (12/06/23) Pain in left knee (12/06/23) Sciatica, right side (12/06/23) Physical Therapy Treatment Note PT-OP-A Visit Information Start: 09/27/23 16:38 Freq: Status: Active Protocol: Document 12/06/23 08:09 AB (Rec: 12/06/23 10:39 AB [id number]) Out-Patient Physical Therapy Visit Information Visit Information Visit Type Treatment Note Visit Note Access Code: [email or web address] Visit Start Time 09:04 Visit Stop Time 09:54 Visit Number 13 Number of KEY ACCOUNT MANAGER Visits 2 PT-OP-B Current Condition Start: 09/27/23 16:38 Freq: Status: Active Protocol: Document 11/29/23 12:55 SAK (Rec: 11/29/23 13:48 SAK [id number]) Current Condition History of Current Condition Onset Date 10+ years Current Complaints right hip pain, sciatica, left knee, kelsi ankles History of Current Condition left knee and right hip often feel like they are going to give out when she is standing or walking. When getting out of the care she states her right foot and ankle sometimes hurt so much she can't put weight on it and has to wait. Also has edema left LE (for years). Reports she has gained weight over the years as well and she expresses she knows extra weight contributes . Patient is diabetic and c/o diabetic neuropathty witgh pain soles of her feet. Did aquatic therapy in the past but hasn't. Uses single point cane in right hand, states she is very right handed. Worst problem is standing from sitting; feels pain in knees and hip. 5 years ago getting off bus twisted left knee badly. History of spraining right ankle. Sits in rocking chair most of the day, legs dependent. Has significant swelling left LE with reddish discoloriation mid calf down, hasn't been wearing compression stockings. Can't lay on her sides due to hip pain and shoulder pain kelsi. Has previously done aquatic exercise but not for several years. Prior Treatments and Tests x-rays: left knee, kelsi ankles. Moderate osteoarthritis, history shots left knee with good response. PT-OP-C Subjective Start: 09/27/23 16:38 Freq: Status: Active Protocol: Document 12/06/23 08:09 AB (Rec: 12/06/23 10:39 AB [id number]) OP-PT Subjective Patient Comments Patient Comments Patient reports right hip and left hip hurt today. Patient ambulates into session with SPC, comments foot may hurt due to the shoes/insoles she has on today. Patient rates right hip pain 3/10, left foot 3/10. PT-OP-G Mobility & Gait Start: 09/27/23 16:38 Freq: Status: Active Protocol: Document 09/28/23 09:04 SAK (Rec: 09/28/23 14:15 SAK [id number]) OP Gait Assessment Gait Gait Assistance Required: Independent Assistive Devices Assistive Device Straight Cane Gait Deviations General Gait Pattern Antalgic,Decreased Stride Length,Decreased Feet Clearance,Flexed Trunk Stair Climbing Evaluation Technique/Endurance Stair Climbing Technique Step to Step PT-OP-H Neuro Start: 09/27/23 16:38 Freq: Status: Active Protocol: Document 09/28/23 09:04 SAK (Rec: 09/28/23 14:15 SAK [id number]) Sensation Evaluation Gross Sensation Sensation Description Paresthesia PT-OP-J Posture/Palpation/Skin Start: 09/27/23 16:38 Freq: Status: Active Protocol: Document 09/28/23 09:04 SAK (Rec: 09/28/23 14:15 SAK [id number]) Posture Evaluation Position Standing Head/C-Spine Posture Forward Head T-Spine Posture Increased Kyphosis L-Spine Posture Increased Lordosis Shoulder Posture (L) Rounded,(R) Rounded Scapula Posture (L) Protracted,(R) Protracted Pelvis Posture Anteriorly Tilted Hip Posture (L) Externally Rotated,(R) Externally Rotated Knee Posture (L) Genu Valgus,(R) Genu Valgus Ankle/Foot Posture (L) Pronated,(R) Pronated PT-OP-K Range of Motion Start: 09/27/23 16:38 Freq: Status: Active Protocol: Document 09/28/23 09:04 SAK (Rec: 09/28/23 14:15 SAK [id number]) Lumbar Spine Range of Motion Lumbar Spine Active ROM Limitations Soft Tissue Tightness,Pain Comments mod decrease all motions Hip Goniometric Range of Motion Hip Right Hip ROM WFL No Flexion w/Knee Flexed 100 Straight Leg Raise 45 Extension 0 Abduction 20 Internal Rotation 10 External Rotation 35 Left Hip ROM WFL No Flexion w/Knee Flexed 100 Straight Leg Raise 55 Extension 0 Abduction 25 Internal Rotation 15 External Rotation 40 Hip ROM Limitations Hip ROM Limitations Soft Tissue Tightness,Pain Knee Goniometric Range of Motion Knee KELSI Knee ROM WFL Yes Ankle and Foot Goniometric Range of Motion Ankle and Foot Left Dorsiflexion with Knee Flexed 5 Dorsiflexion with Knee Extended 0 Plantarflexion 35 Inversion 25 Eversion 10 RIGHT Ankle/Foot ROM WFL No Dorsiflexion with Knee Flexed 5 Dorsiflexion with Knee Extended 0 Plantarflexion 35 Inversion 25 Eversion 10 PT-OP-M Strength Start: 09/27/23 16:38 Freq: Status: Active Protocol: Document 09/28/23 09:04 SAK (Rec: 09/28/23 14:15 SAK [id number]) Trunk Strength Trunk Manual Muscle Testing Flexion 2 Poor Extension 2 Poor Core Stabilization poor Hip Strength Hip Manual Muscle Testing kelsi Flexion (L2) 3- Fair- Extension (S1) 3- Fair- Abduction 3- Fair- External Rotation 3+ Fair+ Internal Rotation 3+ Fair+ Knee Strength Knee Manual Muscle Testing kelsi Flexion (S2) 4- Good- Extension (L3) 4- Good- Ankle/Foot Strength Ankle and Foot Manual Muscle Testing kelsi Dorsiflexion (L4) 4- Good- Plantarflexion (S1) 4- Good- Inversion 4- Good- Eversion (S1) 4- Good- PT-OP-Q Treatments Start: 09/27/23 16:38 Freq: Status: Active Protocol: Document 12/06/23 08:09 AB (Rec: 12/06/23 10:39 AB [id number]) Therapeutic Exercises Supine Exercises ankle pumps Side bilateral Reps/Minutes X10 post manual therapy while LE's elevated Comments Verbal cues breathing from diaphragm Reps/Minutes ~one min instruction Comments verbal and tactile cues Sitting Exercises rhythmic stablization Sitting Exercise Name 1. seated on mat Reps/Minutes X2 min Seated knee extension stretch Sitting Exercise Name LE on mat at chair height Side left Reps/Minutes 2 min with quad sets 2X 10 Comments pillow under LE to float heal seated hip abduction Sitting Exercise Name HEP for one minute hold and increased to level 3 band Side bilateral Resistance level 3 band Reps/Minutes one min and X 18 withotu hold Standing Exercises AP weight shift Standing Exercise Name HEP Side bilateral Equipment Used UE support Reps/Minutes 10 Comments Verbal cues, montored for pain , calf stretch Standing Exercise Name gastroc and soleus on EVELIA Reps/Minutes 60 sec X 2 each stretch Comments Verbal cues Manual Therapy Treatment Soft Tissue Mobilization bilateral hips Body Location piriformis Mobilization Type Cross-Friction,Rolling Intensity/Depth Moderate Body Position Hooklying left knee Body Location left kne med, lat, supra and infra pat Mobilization Type Cross-Friction,Rolling,Other Intensity/Depth Superficial PT-OP-T Assessment and Plan Start: 09/27/23 16:38 Freq: Status: Active Protocol: Document 12/06/23 08:09 AB (Rec: 12/06/23 10:39 AB [id number]) Physical Therapy Assessment Goals Three Impairment unable to take walks Short Term Goal (STG) Decrease pain and improve activity tolerance sufficient for patient able to walk at least 6 min with single point cane or trekking poles 11/28/23: no significant improvement STG Duration 11/11/23 Interpretive Program Coordinator Goal (LTG) Patient will improve walking ability sufficient to go grocery shopping without using motorized cart LTG Duration 12/29/23 One Impairment LEFS-lower extremity functional scale score 46% Short Term Goal (STG) Improve LEFS to at least 60% as measure of improved activity tolerance 11/28/23: score 41% today STG Duration 11/11/23 Retirement Goal (LTG) Improve LEFS to at least 70% as measure of improved activity tolerance and quality of life LTG Duration 12/29/23 Two Impairment strength and flexibility impairments bilateral LE's, core Short Term Goal (STG) Patient will be instructed in HEP for purposes of flexibility and strengthening of her LE's 11/28/23: good goal progress, ongoing modification and progression STG Duration 11/11/23 Interpretive Program Coordinator Goal (LTG) Patient will be independent and compliant with HEP and demonstrate improvement in strength to at least 4+/5 all LE muscle groups. LTG Duration 12/29/23 Assessment Summary Assessment Patient reports right hip, left knee pain 1/10 end of session left foot remains 2/10 ambulating out of session with SPC. Physical Therapy Plan Frequency and Duration Frequency of Treatment 2x/Week Duration of treatment (weeks) 12 Plan of Care Start Date 09/28/23 Plan of Care End Date 12/29/23 Next Visit Focus/Plan Next Note Type Treatment Note Next Visit Plan Continue gentle ther ex progression for strengthening core, LE's, improving activity tolerance. Assess radha to heel raise, add calf stretch to HEP
--- NOTE | 2023-12-08 10:04 | PT.OTN ---
Current Diagnoses Primary osteoarthritis, right ankle and foot (12/08/23) Primary osteoarthritis, left ankle and foot (12/08/23) Pain in left knee (12/08/23) Sciatica, right side (12/08/23) Physical Therapy Treatment Note PT-OP-A Visit Information Start: 09/27/23 16:38 Freq: Status: Active Protocol: Document 12/08/23 09:05 [facility] (Rec: 12/08/23 10:04 [facility] [id number]) Out-Patient Physical Therapy Visit Information Visit Information Visit Type Treatment Note Visit Start Time 09:04 Visit Stop Time 09:45 Visit Number 14 Number of TANK FARM GAUGER Visits 0 PT-OP-B Current Condition Start: 09/27/23 16:38 Freq: Status: Active Protocol: Document 12/08/23 09:05 [facility] (Rec: 12/08/23 10:04 [facility] [id number]) Current Condition History of Current Condition Onset Date 10+ years Current Complaints right hip pain, sciatica, left knee, kelsi ankles History of Current Condition left knee and right hip often feel like they are going to give out when she is standing or walking. When getting out of the care she states her right foot and ankle sometimes hurt so much she can't put weight on it and has to wait. Also has edema left LE (for years). Reports she has gained weight over the years as well and she expresses she knows extra weight contributes . Patient is diabetic and c/o diabetic neuropathty witgh pain soles of her feet. Did aquatic therapy in the past but hasn't. Uses single point cane in right hand, states she is very right handed. Worst problem is standing from sitting; feels pain in knees and hip. 5 years ago getting off bus twisted left knee badly. History of spraining right ankle. Sits in rocking chair most of the day, legs dependent. Has significant swelling left LE with reddish discoloriation mid calf down, hasn't been wearing compression stockings. Can't lay on her sides due to hip pain and shoulder pain kelsi. Has previously done aquatic exercise but not for several years. Prior Treatments and Tests x-rays: left knee, kelsi ankles. Moderate osteoarthritis, history shots left knee with good response. PT-OP-C Subjective Start: 09/27/23 16:38 Freq: Status: Active Protocol: Document 12/08/23 09:05 [facility] (Rec: 12/08/23 10:04 [facility] [id number]) OP-PT Subjective Patient Comments Patient Comments Patient reports felt pretty good when she got up, right hip not hurting, left knee still feels weak, not stable. Ankles stiff and sore standing and walking. Not needing the cane as much. Having eye surgery on Tuesday. Put 3 lb weight on abdomen to practice diaphragmatic breathing laying down. Reports feeling KT taping helpful PT-OP-G Mobility & Gait Start: 09/27/23 16:38 Freq: Status: Active Protocol: Document 09/28/23 09:04 [facility] (Rec: 09/28/23 14:15 [facility] [id number]) OP Gait Assessment Gait Gait Assistance Required: Independent Assistive Devices Assistive Device Straight Cane Gait Deviations General Gait Pattern Antalgic,Decreased Stride Length,Decreased Feet Clearance,Flexed Trunk Stair Climbing Evaluation Technique/Endurance Stair Climbing Technique Step to Step PT-OP-H Neuro Start: 09/27/23 16:38 Freq: Status: Active Protocol: Document 09/28/23 09:04 [facility] (Rec: 09/28/23 14:15 [facility] [id number]) Sensation Evaluation Gross Sensation Sensation Description Paresthesia PT-OP-J Posture/Palpation/Skin Start: 09/27/23 16:38 Freq: Status: Active Protocol: Document 09/28/23 09:04 [facility] (Rec: 09/28/23 14:15 [facility] [id number]) Posture Evaluation Position Standing Head/C-Spine Posture Forward Head T-Spine Posture Increased Kyphosis L-Spine Posture Increased Lordosis Shoulder Posture (L) Rounded,(R) Rounded Scapula Posture (L) Protracted,(R) Protracted Pelvis Posture Anteriorly Tilted Hip Posture (L) Externally Rotated,(R) Externally Rotated Knee Posture (L) Genu Valgus,(R) Genu Valgus Ankle/Foot Posture (L) Pronated,(R) Pronated PT-OP-K Range of Motion Start: 09/27/23 16:38 Freq: Status: Active Protocol: Document 09/28/23 09:04 [facility] (Rec: 09/28/23 14:15 [facility] [id number]) Lumbar Spine Range of Motion Lumbar Spine Active ROM Limitations Soft Tissue Tightness,Pain Comments mod decrease all motions Hip Goniometric Range of Motion Hip Right Hip ROM WFL No Flexion w/Knee Flexed 100 Straight Leg Raise 45 Extension 0 Abduction 20 Internal Rotation 10 External Rotation 35 Left Hip ROM WFL No Flexion w/Knee Flexed 100 Straight Leg Raise 55 Extension 0 Abduction 25 Internal Rotation 15 External Rotation 40 Hip ROM Limitations Hip ROM Limitations Soft Tissue Tightness,Pain Knee Goniometric Range of Motion Knee KELSI Knee ROM WFL Yes Ankle and Foot Goniometric Range of Motion Ankle and Foot Left Dorsiflexion with Knee Flexed 5 Dorsiflexion with Knee Extended 0 Plantarflexion 35 Inversion 25 Eversion 10 RIGHT Ankle/Foot ROM WFL No Dorsiflexion with Knee Flexed 5 Dorsiflexion with Knee Extended 0 Plantarflexion 35 Inversion 25 Eversion 10 PT-OP-M Strength Start: 09/27/23 16:38 Freq: Status: Active Protocol: Document 09/28/23 09:04 [facility] (Rec: 09/28/23 14:15 [facility] [id number]) Trunk Strength Trunk Manual Muscle Testing Flexion 2 Poor Extension 2 Poor Core Stabilization poor Hip Strength Hip Manual Muscle Testing kelsi Flexion (L2) 3- Fair- Extension (S1) 3- Fair- Abduction 3- Fair- External Rotation 3+ Fair+ Internal Rotation 3+ Fair+ Knee Strength Knee Manual Muscle Testing kelsi Flexion (S2) 4- Good- Extension (L3) 4- Good- Ankle/Foot Strength Ankle and Foot Manual Muscle Testing kelsi Dorsiflexion (L4) 4- Good- Plantarflexion (S1) 4- Good- Inversion 4- Good- Eversion (S1) 4- Good- PT-OP-Q Treatments Start: 09/27/23 16:38 Freq: Status: Active Protocol: Document 12/08/23 09:05 [facility] (Rec: 12/08/23 10:04 [facility] [id number]) Cardio Equipment Recumbent Elliptical (Biodex) Duration (Minutes) 10 Resistance 1-3 Seat Position 7 Other denied pain, cues for focus on LE alingment, reported inc right hip pain af Therapeutic Exercises Supine Exercises ankle pumps Supine Exercise Name HEP breathing from diaphragm Supine Exercise Name HEP (using 3# weight on abdomen) Sitting Exercises chair crunch Reps/Minutes 10x Comments cues for long spine rhythmic stablization Sitting Exercise Name 1. seated on mat Reps/Minutes X2 min Seated knee extension stretch Sitting Exercise Name LE on mat at chair height Side left Reps/Minutes 2 min with quad sets 2X 10 Comments pillow under LE to float heal seated hip abduction Sitting Exercise Name HEP, tolerating level 3 band well hamstring curl Equipment Used L2 TB Reps/Minutes 10 Standing Exercises AP weight shift Standing Exercise Name HEP Side bilateral Equipment Used UE support Reps/Minutes 10 Comments Verbal cues, montored for pain , calf stretch Standing Exercise Name gastroc and soleus on EVELIA Reps/Minutes 60 sec X 2 each stretch Comments Verbal cues Manual Therapy Treatment Soft Tissue Mobilization bilateral hips Body Location piriformis Mobilization Type Cross-Friction,Rolling Intensity/Depth Moderate Body Position Hooklying left knee Body Location left kne med, lat, supra and infra pat Mobilization Type Cross-Friction,Rolling,Other Intensity/Depth Superficial Taping left knee Body Location left knee Comments Y strip to facil med patellar glide 75% stretch, 2 Y strips around patella for stabilization and pain reduction 50% stretch (one starting sup and one starting inf knee) Self-Care/Home Management Treatment Education Patient Education Home Exercise Program Other Education Importance of LE alignment to decrease torque to knee, activation of gluteals with sit to stand to dec knee stress PT-OP-T Assessment and Plan Start: 09/27/23 16:38 Freq: Status: Active Protocol: Document 12/08/23 09:05 [facility] (Rec: 12/08/23 10:04 [facility] [id number]) Physical Therapy Assessment Goals Three Impairment unable to take walks Short Term Goal (STG) Decrease pain and improve activity tolerance sufficient for patient able to walk at least 6 min with single point cane or trekking poles 11/28/23: no significant improvement STG Duration 11/11/23 Provider Relations Coordinator Goal (LTG) Patient will improve walking ability sufficient to go grocery shopping without using motorized cart LTG Duration 12/29/23 One Impairment LEFS-lower extremity functional scale score 46% Short Term Goal (STG) Improve LEFS to at least 60% as measure of improved activity tolerance 11/28/23: score 41% today STG Duration 11/11/23 Provider Relations Coordinator Goal (LTG) Improve LEFS to at least 70% as measure of improved activity tolerance and quality of life LTG Duration 12/29/23 Two Impairment strength and flexibility impairments bilateral LE's, core Short Term Goal (STG) Patient will be instructed in HEP for purposes of flexibility and strengthening of her LE's 11/28/23: good goal progress, ongoing modification and progression STG Duration 11/11/23 Jail Goal (LTG) Patient will be independent and compliant with HEP and demonstrate improvement in strength to at least 4+/5 all LE muscle groups. LTG Duration 12/29/23 Progress Towards Goals Progress Towards Goals Progressing Toward Goals,Slow Progress due to Medical Issues Assessment Summary Assessment Compliant to HEP, decreased use of cane. 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 Reported increased hip pain after Biodex. Physical Therapy Plan Frequency and Duration Frequency of Treatment 2x/Week Duration of treatment (weeks) 12 Plan of Care Start Date 09/28/23 Plan of Care End Date 12/29/23 Next Visit Focus/Plan Next Note Type Treatment Note Next Visit Plan 6 min walk test to start session. Continue PT for LE and core strengthening, stabilization, manual therapy and modalities PRN pain. Sit to stand from high surface with TB around thighs.
--- NOTE | 2023-12-14 10:29 | PT-OP ANOTE ---
cancelled due to UTI
--- NOTE | 2023-12-29 16:20 | PT.OTN ---
Current Diagnoses Primary osteoarthritis, right ankle and foot (12/29/23) Primary osteoarthritis, left ankle and foot (12/29/23) Pain in left knee (12/29/23) Sciatica, right side (12/29/23) Physical Therapy Treatment Note PT-OP-A Visit Information Start: 09/27/23 16:38 Freq: Status: Active Protocol: Document 12/29/23 16:11 [facility] (Rec: 12/29/23 16:20 [facility] [id number]) Out-Patient Physical Therapy Visit Information Visit Information Visit Type Treatment Note Visit Note discharge after today's PT visit Visit Start Time 15:17 Visit Stop Time 16:00 Visit Number 15 Evaluation Information Evaluation Date 09/28/23 PT-OP-B Current Condition Start: 09/27/23 16:38 Freq: Status: Active Protocol: Document 12/08/23 09:05 [facility] (Rec: 12/08/23 10:04 [facility] [id number]) Current Condition History of Current Condition Onset Date 10+ years Current Complaints right hip pain, sciatica, left knee, kelsi ankles History of Current Condition left knee and right hip often feel like they are going to give out when she is standing or walking. When getting out of the care she states her right foot and ankle sometimes hurt so much she can't put weight on it and has to wait. Also has edema left LE (for years). Reports she has gained weight over the years as well and she expresses she knows extra weight contributes . Patient is diabetic and c/o diabetic neuropathty witgh pain soles of her feet. Did aquatic therapy in the past but hasn't. Uses single point cane in right hand, states she is very right handed. Worst problem is standing from sitting; feels pain in knees and hip. 5 years ago getting off bus twisted left knee badly. History of spraining right ankle. Sits in rocking chair most of the day, legs dependent. Has significant swelling left LE with reddish discoloriation mid calf down, hasn't been wearing compression stockings. Can't lay on her sides due to hip pain and shoulder pain kelsi. Has previously done aquatic exercise but not for several years. Prior Treatments and Tests x-rays: left knee, kelsi ankles. Moderate osteoarthritis, history shots left knee with good response. PT-OP-C Subjective Start: 09/27/23 16:38 Freq: Status: Active Protocol: Document 12/29/23 16:11 [facility] (Rec: 12/29/23 16:20 [facility] [id number]) OP-PT Subjective Patient Comments Patient Comments Patient reports no longer having right hip pain, but reports no change in knee and foot/ankle pain. Plans to return to her doctor. Was ill for 2 weeks, not able to go to pool but plans to. Prior good response to aquatic exercise. Requests discharge at this time. PT-OP-G Mobility & Gait Start: 09/27/23 16:38 Freq: Status: Active Protocol: Document 09/28/23 09:04 [facility] (Rec: 09/28/23 14:15 [facility] [id number]) OP Gait Assessment Gait Gait Assistance Required: Independent Assistive Devices Assistive Device Straight Cane Gait Deviations General Gait Pattern Antalgic,Decreased Stride Length,Decreased Feet Clearance,Flexed Trunk Stair Climbing Evaluation Technique/Endurance Stair Climbing Technique Step to Step PT-OP-H Neuro Start: 09/27/23 16:38 Freq: Status: Active Protocol: Document 09/28/23 09:04 [facility] (Rec: 09/28/23 14:15 [facility] [id number]) Sensation Evaluation Gross Sensation Sensation Description Paresthesia PT-OP-J Posture/Palpation/Skin Start: 09/27/23 16:38 Freq: Status: Active Protocol: Document 09/28/23 09:04 [facility] (Rec: 09/28/23 14:15 [facility] [id number]) Posture Evaluation Position Standing Head/C-Spine Posture Forward Head T-Spine Posture Increased Kyphosis L-Spine Posture Increased Lordosis Shoulder Posture (L) Rounded,(R) Rounded Scapula Posture (L) Protracted,(R) Protracted Pelvis Posture Anteriorly Tilted Hip Posture (L) Externally Rotated,(R) Externally Rotated Knee Posture (L) Genu Valgus,(R) Genu Valgus Ankle/Foot Posture (L) Pronated,(R) Pronated PT-OP-K Range of Motion Start: 09/27/23 16:38 Freq: Status: Active Protocol: Document 09/28/23 09:04 [facility] (Rec: 09/28/23 14:15 [facility] [id number]) Lumbar Spine Range of Motion Lumbar Spine Active ROM Limitations Soft Tissue Tightness,Pain Comments mod decrease all motions Hip Goniometric Range of Motion Hip Right Hip ROM WFL No Flexion w/Knee Flexed 100 Straight Leg Raise 45 Extension 0 Abduction 20 Internal Rotation 10 External Rotation 35 Left Hip ROM WFL No Flexion w/Knee Flexed 100 Straight Leg Raise 55 Extension 0 Abduction 25 Internal Rotation 15 External Rotation 40 Hip ROM Limitations Hip ROM Limitations Soft Tissue Tightness,Pain Knee Goniometric Range of Motion Knee KELSI Knee ROM WFL Yes Ankle and Foot Goniometric Range of Motion Ankle and Foot Left Dorsiflexion with Knee Flexed 5 Dorsiflexion with Knee Extended 0 Plantarflexion 35 Inversion 25 Eversion 10 RIGHT Ankle/Foot ROM WFL No Dorsiflexion with Knee Flexed 5 Dorsiflexion with Knee Extended 0 Plantarflexion 35 Inversion 25 Eversion 10 PT-OP-M Strength Start: 09/27/23 16:38 Freq: Status: Active Protocol: Document 09/28/23 09:04 [facility] (Rec: 09/28/23 14:15 [facility] [id number]) Trunk Strength Trunk Manual Muscle Testing Flexion 2 Poor Extension 2 Poor Core Stabilization poor Hip Strength Hip Manual Muscle Testing kelsi Flexion (L2) 3- Fair- Extension (S1) 3- Fair- Abduction 3- Fair- External Rotation 3+ Fair+ Internal Rotation 3+ Fair+ Knee Strength Knee Manual Muscle Testing kelsi Flexion (S2) 4- Good- Extension (L3) 4- Good- Ankle/Foot Strength Ankle and Foot Manual Muscle Testing kelsi Dorsiflexion (L4) 4- Good- Plantarflexion (S1) 4- Good- Inversion 4- Good- Eversion (S1) 4- Good- PT-OP-Q Treatments Start: 09/27/23 16:38 Freq: Status: Active Protocol: Document 12/29/23 16:11 [facility] (Rec: 12/29/23 16:20 [facility] [id number]) Cardio Equipment Recumbent Elliptical (Biodex) Duration (Minutes) 10 Resistance 1-3 Seat Position 7 Other denied pain, cues for focus on LE alingment, reported inc right hip pain af Therapeutic Exercises Supine Exercises piriformis stretch Supine Exercise Name HEP Side bilateral Reps/Minutes 60 sec X 1 each LE Comments small towel at groin for right LE SLR Side bilateral Reps/Minutes X10 Comments VC bridge Supine Exercise Name HEP Reps/Minutes 15x Comments small lift Short arc quad Reps/Minutes 10x Sitting Exercises chair crunch Reps/Minutes 10x Comments cues for long spine Standing Exercises calf stretch Standing Exercise Name gastroc and soleus on EVELIA Reps/Minutes 60 sec X 2 each stretch Comments Verbal cues Manual Therapy Treatment Soft Tissue Mobilization left knee Body Location left kne med, lat, supra and infra pat Mobilization Type Cross-Friction,Rolling,Other Intensity/Depth Superficial Other Other Manual Treatments MMT kelsi LE's Self-Care/Home Management Treatment Education Patient Education Home Exercise Program Other Education updated wreitten HEP advised aquatic exercise for strengthening, flexiblility, edema reduction instructed obtain thigh high compression stockings 20-30 mm Hg silicone top; rquest prescription from her physician for Medicare coverage PT-OP-T Assessment and Plan Start: 09/27/23 16:38 Freq: Status: Active Protocol: Document 12/29/23 16:11 [facility] (Rec: 12/29/23 16:20 [facility] [id number]) Physical Therapy Assessment Goals Three Impairment unable to take walks Short Term Goal (STG) Decrease pain and improve activity tolerance sufficient for patient able to walk at least 6 min with single point cane or trekking poles 11/28/23: no significant improvement STG Duration goal met 12/29/23 Motel Maid Goal (LTG) Patient will improve walking ability sufficient to go grocery shopping without using motorized cart LTG Duration 12/29/23 One Impairment LEFS-lower extremity functional scale score 46% Short Term Goal (STG) Improve LEFS to at least 60% as measure of improved activity tolerance 11/28/23: score 41% today STG Duration 11/11/23 Fdc Goal (LTG) Improve LEFS to at least 70% as measure of improved activity tolerance and quality of life 12/29/23goal progress, not fully met LTG Duration 12/29/23 Two Impairment strength and flexibility impairments bilateral LE's, core Short Term Goal (STG) Patient will be instructed in HEP for purposes of flexibility and strengthening of her LE's 11/28/23: good goal progress, ongoing modification and progression 12/29/23: goal met STG Duration goal met [employer]id Goal (LTG) Patient will be independent and compliant with HEP and demonstrate improvement in strength to at least 4+/5 all LE muscle groups. 12/29/23: good goal progress, not fully met 4- to 4/5 hips, knees 4/5, ankles 4/5 LTG Duration 12/29/23 Assessment Summary Assessment Patient has made progress toward goals, with elimination of right hip pain. Knee and foot/anklepain persists. Has not followed recomendation yet to return to aquatic exercise which I feel will be most beneficial for this patient. Also encouraged thigh high compression stockings as above due to LE lymphedema; information written for patient to discuss with her doctor. At this time we will discharge from PT, have patient resume aquatic exercise, continue with HEP. She may benefit from further PT in the future. Physical Therapy Plan Discharge Physical Therapy Discharge Reasons Plateau in Progress
== END 2024-01-02 14:37 | disposition home or self-care (01) ==
LOC: PHYS 15:15
PROVIDERS: Family Provider Internal Medicine; PCP Internal Medicine; Referring Provider Internal Medicine; Visit Provider Internal Medicine
DX: M19.071 Primary osteoarthritis, right ankle and foot (principal); M19.072 Primary osteoarthritis, left ankle and foot; M54.31 Sciatica, right side; M25.562 Pain in left knee
CPT/HCPCS: 97110; 97140; 97162; 97535

== ENCOUNTER → 2024-01-27 13:24 | Outpatient (CLI) | payer MEDICARE, OTHER, SELFPAY ==
[2022-11-13 14:20] VITALS: BMI 45.6
[2024-01-27 14:31] LABS: HEMOLYSIS < 15 (0-50); Iron 93 ug/dL (37-170)
[2024-01-27 14:41] LABS: Percent Iron Saturation 23 % (15-50); Total Iron Binding Capacity 411 ug/dL (265-497); Transferrin 382 mg/dL (206-381)
[2024-01-27 15:06] LABS: Ferritin 18 ng/mL (11-264)
== END ==
PROVIDERS: PCP Internal Medicine; Referring Provider Internal Medicine Sleep Medicine; Visit Provider Internal Medicine Sleep Medicine
DX: E83.10 Disorder of iron metabolism, unspecified (principal); G47.33 Obstructive sleep apnea (adult) (pediatric); G25.81 Restless legs syndrome; R53.83 Other fatigue
CPT/HCPCS: 36415; 82728; 83540; 83550

== ENCOUNTER 2024-11-17 15:22 | Emergency (ER) | payer MEDICARE, OTHER, SELFPAY ==
[2022-11-13 14:20] VITALS: BMI 45.6
[2024-11-17] VITALS (10 sets, daily range): BP systolic 153–205; BP diastolic 74–90; PULSE 91–112; RESP 15; TEMP 36.8; O2SAT 92–97; BMI 49.8
--- NOTE | 2024-11-17 15:29 | ED.GENADULT ---
HPI - General Adult General Chief complaint: Fall Stated complaint: fall l hip pain unable to ambulate Time Seen by Provider: 11/17/24 15:26 History of Present Illness HPI narrative: 79-year-old woman with a history of diabetes, hyperlipidemia, hypertension, reflux, sleep apnea increasing falls recently with a fall the , complaining of left knee and hip pain seen in orthopedic office on the . Today was trying to get her walker out of her car and she lost her balance fell backwards onto a curb landing on her right hip which is now hurting as well. She complains of increasing bilateral hip knee and ankle pain with increasing lower extremity edema that no longer seems to be resolving after she has kept her feet up all night. No recent fever cough chills, chest pain or palpitations. She very clearly states she did not hit her head is not complaining of any back pain. She is not on blood thinners. Related Data Home Medications ?Medication ?Instructions ?Recorded ?Confirmed magnesium 200 mg tablet 400 mg PO DAILY ##0 02/21/16 11/16/24 cholecalciferol (vitamin D3) 25 5,000 u Q DAY ##0 08/12/16 11/16/24 mcg (1,000 unit) tablet (Vitamin D3) cinnamon bark 500 mg capsule 500 mg PO TID 01/25/19 11/16/24 metformin 500 mg tablet 500 mg PO BID 01/25/19 11/17/24 (Glucophage) Turmeric Curcumin 1 tab PO DAILY 10/09/19 11/16/24 omega-3 fatty acids 500 mg capsule 500 mg PO DAILY 10/09/19 11/16/24 aspirin 325 mg tablet 325 mg PO DAILY 10/12/21 11/17/24 biotin 5,000 mcg chewable tablet 5,000 mcg PO BID 11/13/22 11/16/24 salt moisturizing solution 1 1 spray intranasal BID PRN Dry nose 11/13/22 11/16/24 pen needle, diabetic 31 gauge x #1,200 ea 02/07/23 11/16/2405/06 (BD Ultra-Fine Mini Pen Needle) ResMed AirCurve 10 ST-A PO 10/11/24 11/16/24 Glyco Sync 1 cap PO DAILY 11/15/24 11/16/24 Vitamin B12 PO DAILY 11/15/24 11/16/24 Vitamin C 1 tab PO DAILY 11/15/24 11/16/24 capsicum (cayenne) 450 mg capsule 455 mg PO DAILY 11/15/24 11/16/24 cetirizine 10 mg tablet (Aller-Davidson) 10 mg PO DAILY 11/15/24 11/16/24 cranberry extract 500 mg capsule 500 mg PO DAILY 11/15/24 11/16/24 dulaglutide 0.75 mg/0.5 mL 4.5 mg SUBCUT QWEEK 11/15/24 11/17/24 subcutaneous pen injector (Trulicity) ferrous sulfate 325 mg (65 mg 325 mg PO DAILY 11/15/24 11/16/24 iron) tablet insulin glargine 100 unit/mL (3 60 unit SUBCUT QPM 11/15/24 11/17/24 mL) subcutaneous pen (Basaglar KwikPen U-100 Insulin) travoprost ophthalmic (eye) 11/15/24 11/16/24 Previous Rx's ?Medication ?Instructions ?Recorded Disabled Parking #1 ea 07/27/21 fluticasone propionate 50 2 spray intranasal DAILY #48 grams 02/24/24 mcg/actuation nasal spray,suspension atorvastatin 40 mg tablet 40 mg PO HS #90 tabs 09/03/24 gemfibrozil 600 mg tablet 600 mg PO BID #180 tabs 09/03/24 losartan 50 mg tablet 50 mg PO BID #180 tabs 09/03/24 metoprolol tartrate 50 mg tablet 50 mg PO BID #180 tabs 09/03/24 (Lopressor) omeprazole 20 mg capsule,delayed 20 mg PO DAILY #90 caps 09/03/24 release glipizide 10 mg tablet 10 mg PO BID #120 tabs 10/30/24 acetaminophen 500 mg capsule 1,000 mg (2 x 500 mg) PO TID PRN 11/16/24 pain 2 weeks #90 caps diclofenac sodium 1 % topical gel 4 g topical QID #100 grams 11/16/24 (Arthritis Pain (diclofenac)) oxycodone-acetaminophen 5 mg-325 1 tab PO Q6H PRN pain #10 tabs 11/17/24 mg tablet Allergies Allergy/AdvReac Type Severity Reaction Status Date / Time lisinopril (LISINOPRIL) AdvReac Intermediate COUGH Verified 11/17/24 15:32 nitrofurantoin AdvReac Intermediate Rash Verified 11/17/24 15:32 Review of Systems Review of Systems Narrative: Pertinent positive and negative findings as per HPI Patient History Medical History COVID-19 Hypercalcemia Chronic renal failure, stage 3a Morbid obesity with BMI of 45.0-49.9, adult Insomnia Behaviorally induced insufficient sleep syndrome Morbid obesity with BMI of 40.0-44.9, adult (02/04/11) Excessive daytime sleepiness Diabetes type 2, controlled Asthma (~1958) Peripheral neuropathy (~2015) Shoulder pain (~2016) Foot pain (~1999) Fibromyalgia Carpal tunnel syndrome (~1997) Ankle pain (~1953) Rosacea (~1989) Rubella (~1955) Measles (~1953) Chicken pox (~1953) History of recurrent ear infection (~1955) Hearing loss (~1955) Cataracts, bilateral (~1999) Menstrual cycle disorder (~1961) Fibroids Endometriosis Chlamydia (~1976) Type 2 diabetes mellitus without complication, with long-term current use of insulin (01/10/17) Glaucoma (02/04/11) Obstructive sleep apnea syndrome (02/04/11) Mixed hyperlipidemia (02/04/11) Essential hypertension (02/04/11) Surgical History Anesthesia Surgical procedure planned History of tonsillectomy (~1952) Status post hysterectomy (~1986) Family History Brother Age: 65 Sleep apnea Child Age: 56 Osteopenia Grandmother Cancer Mother Hypertension Sister Age: 68 Sleep apnea Migraines Family/Other Diabetes mellitus Father No problems noted. Social History household members: none Smoking Status: Unknown if ever smoked alcohol intake: never Exam Initial Vital Signs Initial Vital Signs: Vital Signs Temperature 98.2 F 11/17/24 15:23 Pulse Rate 103 H 11/17/24 15:23 Respiratory Rate 15 11/17/24 15:23 Blood Pressure 205/90 H 11/17/24 15:23 Pulse Oximetry 96 11/17/24 15:23 Oxygen Delivery Method Room Air 11/17/24 15:23 General: Older-appearing woman comfortable lying in his stretcher notes right hip pain from her fall left knee pain has been ongoing HEENT: Moist mucous membranes, normal sclera with reactive pupils, Respiratory: Lungs are clear to auscultation, no wheezing no rales no rhonchi. Full and symmetrical air movement Cardiac: Regular rate and rhythm no murmurs no bruits Abdomen: Soft, nontender, no rebound or guarding, no flank pain Skin: Chronic venous stasis changes in the lower extremities Neurologic: Grossly neurologically intact with no obvious asymmetries or abnormalities Extremities: Tenderness without abrasion or contusion to the right hip. There is no obvious hip or knee deformity. 2+ pitting edema bilaterally Psych: Cooperative, appropriate insight and affect Course Orders Ordered: ED Orders 11/17/24 15:33 XR hip w pel RT 2V Stat 11/17/24 15:50 XR chest 1V Stat Urinalysis and Microscopic Stat EKG-12 Lead Stat 11/17/24 16:27 Complete Blood Count AUTO DIFF Stat Comprehensive Metabolic Panel Stat Magnesium Stat NT-proBNP (BNP-Adult 18+) Stat Troponin I Stat Discontinued Medications Oxycodone/Acetaminophen (Oxycodone/Acetaminophen 5/325 Tablet) 1 tab PO NOW ONE Stop: 11/17/24 15:50 Last Admin: 11/17/24 16:11 Dose: 1 tab Documented By: POP Vital Signs Vital signs: Vital Signs - 8 hr 11/17/24 15:23 11/17/24 15:32 11/17/24 15:33 Temperature 98.2 F Pulse Rate 103 H 99 H Respiratory Rate 15 Blood Pressure 205/90 H 153/82 H Pulse Oximetry 96 95 Oxygen Delivery Method Room Air 11/17/24 15:33 11/17/24 16:02 11/17/24 16:30 Temperature Pulse Rate 100 H 98 H Respiratory Rate Blood Pressure 179/74 H Pulse Oximetry 95 95 Oxygen Delivery Method 11/17/24 16:30 11/17/24 17:00 11/17/24 17:01 Temperature Pulse Rate 94 H 91 H Respiratory Rate Blood Pressure 184/83 H Pulse Oximetry 97 93 Oxygen Delivery Method Room Air 11/17/24 17:01 Temperature Pulse Rate 94 H Respiratory Rate Blood Pressure Pulse Oximetry 94 Oxygen Delivery Method Medical Decision Making Lab Data 11/17/24 16:27 11/17/24 16:27 Labs: Lab Results 11/17/24 Range/Units 16:27 WBC 7.0 (4.5-11.0) X10^3/uL RBC 3.46 L (4.0-5.2) X10^6/uL Hgb 11.4 L (12.0-16.0) g/dL Hct 33.3 L (36-46) % MCV 96.4 (80-100) fL MCH 33.0 (26-34) PG MCHC 34.2 (30-36) % RDW 13.9 (11.6-14.8) % Plt Count 228 (150-400) X10^3/uL Neut % (Auto) 59.4 (50-75) % Lymph % (Auto) 29.5 (25-40) % Early % (Auto) 7.6 (3-14) % Eos % (Auto) 2.5 (2-4) % Baso % (Auto) 1.0 (0-2) % Neut # (Auto) 4200 (2559-6443) /uL Lymph # (Auto) 2100 (4981-6239) /uL Early # (Auto) 500 (0-900) /uL Eos # (Auto) 200 (0-450) /uL Baso # (Auto) 100 (0-100) /uL Sodium 140 (137-145) mmol/L Potassium 4.1 (3.4-5.1) mmol/L Chloride 108 H (98-107) mmol/L Carbon Dioxide 23 (22-32) mmol/L BUN 20 H (7-17) mg/dL Creatinine 0.87 (0.52-1.04) mg/dL Estimated GFR > 60 (>60) mL/min BUN/Creatinine Ratio 23.0 H (6-22) Glucose 158 H (70-99) mg/dL Calcium 10.5 H (8.4-10.2) mg/dL Magnesium 1.4 L (1.6-2.3) mg/dL Total Bilirubin 0.4 (0.2-1.3) mg/dL AST 27 (14-36) IU/L ALT 20 (<35) IU/L Alkaline Phosphatase 41 (38-126) U/L Troponin I < 0.012 (0.01-0.034) ng/mL NT-Pro-B Natriuret Pep 167 (<450) pg/mL Total Protein 7.0 (6.3-8.2) g/dL Albumin 4.3 (3.5-5.0) g/dL Globulin 2.7 (1.7-4.1) g/dL Albumin/Globulin Ratio 1.6 (1.0-2.8) MDM Narrative Medical decision making narrative: CC: Fall landing on her right hip, increasing falls, increasing lower extremity edema increasing instability all over the last 1-2 weeks Complicating co-morbidities: Diabetes, hypertension, hyperlipidemia, increasing lower extremity edema with out diagnosis of congestive heart failure, increasing gait instability currently uses a walker Data collected from: patient Medical records reviewed: Primary care notes and orthopedic notes from this week are reviewed X-rays done of the left knee yesterday shows tricompartmental osteoarthritis, x-ray done yesterday for right hip pain notes moderate bilateral hip osteoarthrosis. Differential considered: Hip fracture, hip contusion, pelvic fracture, expanding hematoma, worsening heart failure, electrolyte abnormalities, dependent edema Exam documented above, pertinent findings include: Complaining of worsening right hip pain after her fall but no obvious deformity or foreshortened leg. Bilateral lower extremity edema with venous stasis changes appreciated. Lab Test results independently reviewed as above. Pertinent findings: CBC is unremarkable Chemistries are slightly better than most recent lab work. Creatinine is back to normal. Troponin is not elevated BNP is not elevated Independently reviewed EKG: Sinus rhythm at a rate of 97, PACs, no acute ischemic changes Imaging studies independently reviewed: X-ray of the pelvis and right hip shows no acute fractures Treatments: 1 Percocet Discussion: 79-year-old woman with a history of chronic pain and osteoarthritis of hips and knees currently uses a walker with mobility issues at baseline. Fell today landing on her right hip. X-rays do not show any new fractures. She is able to walk using her walker but does note increased pain. She does not have tenderness along the lower lumbar spine to suggest new compression fracture. She was given a Percocet in the emergency department and tolerated this fairly well. She has been having increasing lower extremity edema, she was prescribed Lasix by her primary care physician which did seem to help however caused urinary frequency and it was difficult for her to get to the bathroom that frequently because of her baseline mobility issues. She has stopped taking this about a week and a half ago concurrent with the slight increase in her baseline dependent edema. There does not appear to be any evidence for acute coronary syndrome nor congestive heart failure based on blood work and chest x-ray. Discussed how much more she is going to hurt over the next 48 hours, buying some depends knowing that she is going to have difficulty getting to the bathroom. We discussed using the Lasix she already has at home in light of the increased pain and mobility issues. At this point the decision is hers, live with the lower extremity edema or use the Lasix. I did suggest that using it a couple of times a week maybe a reasonable compromise. She will follow up with her primary care physician Her sister is with her today and we will have rug at home. The to live in the same apartment complex in her sister can check on her. Patient does have a walker and does use it appropriately. Very clearly reviewed increased risk of falling with narcotics with baseline concern for falling due to her chronic musculoskeletal pain and increasing mobility difficulties. There was no indication for advanced imaging, hospitalization or further workup this time and she is safe for discharge Discharge Plan Departure Patient Disposition: Home Clinical Impression: Fall, Contusion of hip, right, Osteoarthritis of right hip, Decreased mobility, Bilateral edema of lower extremity Instructions: DI for Osteoarthritis, How to Prevent Falls Activity Restrictions/Additional Instructions: Thank you for coming in today, I am very glad that you did not break anything with your fall today Your fall clearly we will make your chronic pain worse both in the hips and knees and low back for the next couple of days. Your current difficulty with getting up and getting to the bathroom because of pain and movement is going to be even worse. I would suggest that you consider buying some depends when you pickling operator your pain prescription at the grocery store. Regarding pain control, I am going to give you a prescription for Percocet. This is a narcotic can increase your risk for falls, will absolutely cause constipation but can help so that you can at least get up to the bathroom and move about a bit for these next couple of days. Please make sure that you have your walker with you at all times to avoid falling If you are having new or worsening pain by Tuesday you do need to be seen in re-evaluated We discussed your lower extremity edema. There was no evidence for heart failure, electrolyte abnormality significant kidney or liver problems. You do have the furosemide/Lasix prescribed you earlier that you can use. You may find that using it at least a couple of times a week can be helpful in keeping the lower extremity edema better controlled Prescriptions: New oxycodone-acetaminophen 5-325 mg tablet 1 tab PO Q6H PRN (Reason: pain) Qty: 10 0RF No Action (DME) pen needle, diabetic [BD Ultra-Fine Mini Pen Needle] 31 gauge x 3/16 needle See Rx Instructions .ROUTE DAILY Qty: 1200 Rx Instructions: As directed magnesium 200 MG tablet 400 mg PO DAILY Qty: 0 Rx Instructions: in the morning cholecalciferol (vitamin D3) [Vitamin D3] 1,000 UNIT tablet 5,000 u Q DAY Qty: 0 Rx Instructions: in the morning fluticasone propionate 50 mcg/actuation spray,suspension 2 spray intranasal DAILY Qty: 48 3RF omeprazole 20 mg capsule,delayed release(DR/EC) 20 mg PO DAILY Qty: 90 1RF Rx Instructions: in morning metoprolol tartrate [Lopressor] 50 mg tablet 50 mg PO BID Qty: 180 1RF losartan 50 mg tablet 50 mg PO BID Qty: 180 1RF gemfibrozil 600 mg tablet 600 mg PO BID Qty: 180 1RF atorvastatin 40 mg tablet 40 mg PO HS Qty: 90 1RF Rx Instructions: takes at bedtime glipizide 10 mg tablet 10 mg PO BID Qty: 120 0RF cinnamon bark 500 mg capsule 500 mg PO TID Rx Instructions: Takes 1,000mg 3x a day metformin [Glucophage] 500 mg tablet 500 mg PO BID (DME) Disabled Parking See Rx Instructions .ROUTE .MEDSUPPLY Qty: 1 0RF Rx Instructions: Patient qualifies for disabled parking as per the attached form. omega-3 fatty acids 500 mg capsule 500 mg PO DAILY Rx Instructions: at bedtime Turmeric Curcumin 1 tab PO DAILY Rx Instructions: 500 MG at bedtime ResMed AirCurve 10 ST-A PO cetirizine [Aller-Davidson] 10 mg tablet 10 mg PO DAILY capsicum (cayenne) 450 mg capsule 455 mg PO DAILY ferrous sulfate 325 mg (65 mg iron) tablet 325 mg PO DAILY cranberry extract 500 mg capsule 500 mg PO DAILY Rx Instructions: administer with meals Glyco Sync 140 mg 1 cap PO DAILY Vitamin B12 2,500 mcg PO DAILY Vitamin C 1 tab PO DAILY Rx Instructions: 100-200mg travoprost [Travatan Z] ophthalmic (eye) insulin glargine [Basaglar KwikPen U-100 Insulin] 100 unit/mL (3 mL) insulin pen 60 unit SUBCUT QPM Trulicity 0.75 mg/0.5 mL pen injector 4.5 mg SUBCUT QWEEK Patient Comments: Unkown dose Rx Instructions: takes per week aspirin 325 mg Tablet 325 mg PO DAILY Rx Instructions: takes at bedtime salt moisturizing solution 1 Mist 1 spray INTRANASAL BID PRN (Reason: Dry nose) biotin 5,000 mcg Tablet,Chewable 5,000 mcg PO BID acetaminophen 500 mg capsule 1,000 mg PO TID PRN (Reason: pain) 14 Days Qty: 90 0RF diclofenac sodium [Arthritis Pain (diclofenac)] 1 % gel 4 g topical QID Qty: 100 0RF Rx Instructions: Apply to knee and hip as needed up to 3 times daily Referrals: Ivan Recinos MD [Primary Care Provider, Internal Medicine] Stand Alone Forms: Patient Portal/API
--- NOTE | 2024-11-17 15:33 | DI.RAD.S_ITS ---
PROCEDURE: XR HIP W PEL IF DONE RT 2V INDICATIONS: fall, hip pain TECHNIQUE: AP pelvis with lateral view(s) of the right hip(s). COMPARISON: [facility], CR, XR CHEST 1V, 11/17/2024, 15:48. FINDINGS: Bones: No fractures or dislocations. Pelvic ring appears intact. No suspicious bony lesions. There is moderate superior joint space narrowing seen of both hips, with associated remodeling changes with subchondral sclerosis and osteophyte formation. Age-appropriate lower lumbar spine degenerative changes are noted. Soft tissues: The visualized bowel gas pattern is normal. No suspicious soft tissue calcifications. Atherosclerotic calcification is noted. IMPRESSION: No displaced fracture is seen on this plain film study. Dictated by: Tray Spence M.D. on 11/17/2024 at 15:28 Approved by: Tray Spence M.D. on 11/17/2024 at 15:29
--- NOTE | 2024-11-17 15:50 | DI.RAD.S_ITS ---
PROCEDURE: XR CHEST 1V INDICATIONS: dyspnea TECHNIQUE: One view of the chest was acquired. COMPARISON: [facility], CR, XR HIP W PEL RT 2V, 11/17/2024, 15:48. [facility], CR, XR CHEST 1V, 11/13/2022, 2:58. FINDINGS: Surgical changes and devices: None. Lungs and pleura: On this supine examination, no large pneumothorax or large pleural effusions are seen. No focal areas of lung consolidation are seen. Mediastinum: Mediastinal contours appear normal. Heart size is normal. Atherosclerotic calcification of the aortic arch is noted. Bones and chest wall: No suspicious bony lesions. Age-appropriate bony degenerative changes are seen. Overlying soft tissues appear unremarkable. IMPRESSION: Portable chest within normal limits for age. Dictated by: Tray Spence M.D. on 11/17/2024 at 15:27 Approved by: Tray Spence M.D. on 11/17/2024 at 15:28
--- NOTE | 2024-11-17 16:14 | EKG_ITS ---
[address] [address] Test Date: 2024-11-17 Pat Name: Cindy Gonsales Department: Room: Gender: Female Journalism Teacher: DARINEL : 1945 Requested By: Order Number: [id number] Reading MD: Ivan Recinos MD Measurements Intervals [place] Rate: 97 P: 91 NE: 160 QRS: -31 QRSD: 86 T: 42 QT: 332 QTc: 421 Interpretive Statements Sinus rhythm with premature atrial complexes Left axis deviation Minimal voltage criteria for LVH, may be normal variant ( R in aVL ) Electronically Signed On 11-18-2024 8:40:11 PDT by Ivan Recinos MD
[2024-11-17 16:36] LABS: Add Manual Diff / Slide Review NO; Hematocrit 33.3 % (36-46); Hemoglobin 11.4 g/dL (12.0-16.0); Lymphocytes Absolute Auto 2100 /uL (1100-4500); Mean Corpuscular HGB Conc 34.2 % (30-36); Mean Corpuscular Hemoglobin 33.0 PG (26-34); Mean Corpuscular Volume 96.4 fL (80-100); Platelet Count 228 X10^3/uL (150-400)
[2024-11-17 16:52] LABS: Alanine Aminotransferase 20 IU/L (<35); Albumin 4.3 g/dL (3.5-5.0); Albumin Globulin Ratio 1.6 (1.0-2.8); Alkaline Phosphatase 41 U/L (38-126); Blood Urea Nitrogen 20 mg/dL (7-17); Calcium 10.5 mg/dL (8.4-10.2); Carbon Dioxide 23 mmol/L (22-32); Chloride 108 mmol/L (98-107); Estimated Glomerular Filt Rate > 60 mL/min (>60); Globulin 2.7 g/dL (1.7-4.1); Glucose 158 mg/dL (70-99); HEMOLYSIS < 15 (0-50); Magnesium 1.4 mg/dL (1.6-2.3); Potassium 4.1 mmol/L (3.4-5.1); Sodium 140 mmol/L (137-145); Total Protein 7.0 g/dL (6.3-8.2)
[2024-11-17 17:04] LABS: NT-proBNP (BNP-Adult 18+) 167 pg/mL (<450); Troponin I < 0.012 ng/mL (0.01-0.034)
== END 2024-11-17 18:30 | disposition home or self-care (01) ==
PROVIDERS: Emergency Provider Emergency Medicine; PCP Internal Medicine
DX: S70.01XA Contusion of right hip, initial encounter (principal); M16.11 Unilateral primary osteoarthritis, right hip; R60.0 Localized edema; W19.XXXA Unspecified fall, initial encounter; R29.6 Repeated falls; R26.89 Other abnormalities of gait and mobility
CPT/HCPCS: 36415; 71045; 73502; 80053; 83735; 83880; 84484; 85025; 93005; 93010; 99283; 99284

== ENCOUNTER → 2024-12-04 14:35 | Outpatient (CLI) | payer MEDICARE, OTHER, SELFPAY ==
[2022-11-13 14:20] VITALS: BMI 45.6
[2024-12-04 15:05] LABS: Hemoglobin A1C% w Est Avg Glu 8.9 % (4.0-6.0)
[2024-12-04 15:56] LABS: Alanine Aminotransferase 21 IU/L (<35); Albumin 4.6 g/dL (3.5-5.0); Albumin Globulin Ratio 1.9 (1.0-2.8); Alkaline Phosphatase 47 U/L (38-126); Blood Urea Nitrogen 35 mg/dL (7-17); Calcium 10.8 mg/dL (8.4-10.2); Carbon Dioxide 30 mmol/L (22-32); Chloride 100 mmol/L (98-107); Estimated Glomerular Filt Rate 46 mL/min (>60); Globulin 2.4 g/dL (1.7-4.1); Glucose 154 mg/dL (70-99); HEMOLYSIS < 15 (0-50); Potassium 4.6 mmol/L (3.4-5.1); Sodium 140 mmol/L (137-145); Total Protein 7.0 g/dL (6.3-8.2)
== END ==
PROVIDERS: PCP Internal Medicine; Referring Provider Internal Medicine; Visit Provider Internal Medicine
DX: E11.65 Type 2 diabetes mellitus with hyperglycemia (principal); E78.2 Mixed hyperlipidemia; I10 Essential (primary) hypertension
CPT/HCPCS: 36415; 80053; 83036

== ENCOUNTER → 2024-12-14 10:52 | Outpatient (CLI) | payer MEDICARE, OTHER, SELFPAY ==
[2022-11-13 14:20] VITALS: BMI 45.6
--- NOTE | 2025-01-16 09:31 | DIAB.MNT ---
Initial Diabetes Medical Nutrition Therapy Assessment Name: Cindy Gonsales (Lolis) Date: 12/14/24 Time: 11a-12p Dx: Type II Diabetes and CKD Provider: Jorje Lolis presents for initial DM visit, accompanied by Christine. Plans to move out of state soon. Reports LE neuropathy, sees podiatry. Wears a CGM. Frequent eating out reported. Diet recall; 530-730a: iron and vit c supplements 730-930a: low CHO shake and diet cokd sn: nothing or chips 330-4p: fish n chips OR sandwich x 12 and 1oz chips OR Pakistani food 8-9p: canned stew OR 2sm burritos +/- can of chili diet coke 6s 12oz water 4oz flavored water 1-2 bottles per day sometimes berries or melon Anthropometrics: Ht: 61 Wt: 244.7# 11/2024 Weight history: Physical Activity: Fell one month ago and barriers include hip and knee issues Self-Monitoring Blood Glucose: Excessive time above goal per CGM reports. On older Malia version. TIR: 43% very high 42% high 15% in range 0% low or very low avmg/dl GM: 9.4% variance; 29.6% Date Pre Post Pre Post Pre Post HS Diabetes Medications: 4.5mg Trulicity weekly 60u Basaglar 500mg Metformin BID 10mg Glipizide BID Pertinent Labs: HgA1c: 8.9% 11/2024 GFR: 46 09/2024 Past Medical History: (Last Reviewed 11/17/24 @ 16:01 by Britney Mayberry MD) Ankle pain (~1953) Asthma (~1958) Behaviorally induced insufficient sleep syndrome Carpal tunnel syndrome (~1997) Cataracts, bilateral (~1999) Chicken pox (~1953) Chlamydia (~1976) Chronic renal failure, stage 3a COVID-19 Diabetes type 2, controlled Endometriosis Essential hypertension (02/04/11) Excessive daytime sleepiness Fibroids Fibromyalgia Foot pain (~1999) Glaucoma (02/04/11) Hearing loss (~1955) History of recurrent ear infection (~1955) Hypercalcemia Insomnia Measles (~1953) Menstrual cycle disorder (~1961) Painful Mixed hyperlipidemia (02/04/11) Morbid obesity with BMI of 40.0-44.9, adult (02/04/11) Morbid obesity with BMI of 45.0-49.9, adult Obstructive sleep apnea syndrome (02/04/11) Peripheral neuropathy (~2015) Rosacea (~1989) Rubella (~195) Shoulder pain (~2016) Type 2 diabetes mellitus without complication, with long-term current use of insulin (01/10/17) Nutrition Rx: Plate Method Nutrition Diagnosis: - Excessive CHO intake r/t nutrition knowledge deficit aeb pt report, diet recall and glucose trends - Predicted excessive Na intake r/t eating out frequency aeb pt report Intervention: This participant was very receptive. Provided appropriate educational handouts. Discussed the following topics: Completed intake assessment. HgA1c, its correlation to blood glucose numbers, and rationale for goal CGM trends and goals Plate Method, impact of macronutrients on blood sugar, meal timing, pairing macronutrients and spreading out carbohydrates for better blood glucose management Recommended servings for carbohydrates at meals and snacks Heart health nutrition Brainstormed appropriate meal plan based on food preferences Role of physical activity and following provider guidelines for safety Created SMART goals for patient self-care and success. Goals: Chat with endo about upgrading Malia Eat q 3-5 hours Keep CHO to 1c at meals Order smaller portions when eating out Try to drink more water and less diet soda Follow-up: LEWIS PLATA follow-up prn given pt moving to another state. Encouraged follow-up with DM team in [place] where she will be living. Elle Bellamy RDN, SHERLYN Certified Diabetes Care and Director Recreation P: [phone] Thank you for this referral
== END ==
LOC: DIET 10:53
PROVIDERS: PCP Internal Medicine; Referring Provider Internal Medicine
DX: E11.22 Type 2 diabetes mellitus with diabetic chronic kidney disease (principal); N18.9 Chronic kidney disease, unspecified; Z79.4 Long term (current) use of insulin; Z79.84 Long term (current) use of oral hypoglycemic drugs; Z79.85 Long-term (current) use of injectable non-insulin antidiabetic drugs; Z71.3 Dietary counseling and surveillance
CPT/HCPCS: 97802